=== PATIENT | male | born 1935 | race Caucasian/White ===

== ENCOUNTER 2019-08-08 12:19 | Emergency (ER) | payer MEDICARE, SELFPAY ==
--- NOTE | ~2019-08-08 | XR_ITS ---
EXAMINATION: XR chest 2V DATE: 08/08/2019 12:40 INDICATION: Nonproductive cough TECHNIQUE: PA and lateral views of the chest were obtained. COMPARISON: Chest radiograph dated 07/14/2019 FINDINGS: The region of consolidation in the right middle lobe consistent with pneumonia. No significant change in a few peripheral streaky opacities at the right upper and bilateral lower lung zones consistent w ith atelectasis/scarring. Calcified right lower lobe nodule consistent with old granulomatous disease . Very small right pleural effusion. No pneumothorax. The cardiomediastinal silhouette is normal. The re are bridging osteophytes at multiple levels in the spine, consistent with diffuse idiopathic skele laurita hyperostosis (DISH). IMPRESSION: 1. Right middle lobe pneumonia with very small right pleural effusion. Reviewed, dictated and finalized at location A. OSIVE ORDNANCE MANAGER
[2019-08-08 12:31] VITALS: BP 133/59; PULSE 60; RESP 18; TEMP 37.7; O2SAT 93
--- NOTE | 2019-08-08 12:52 | ED.URI ---
HPI - URI/Sore Throat General Chief Complaint: Upper Respiratory Infection Stated Complaint: Cough Time Seen by Provider: 08/08/19 12:45 Source: patient and RN notes reviewed Mode of arrival: ambulatory Limitations: no limitations History of Present Illness HPI Narrative: Patient presents today with a 4-day history of nonproductive cough and slight shortness of breath with runny nose. Denies fever, body aches, sore throat, congestion. He has been using cough drops with some relief. Cough is not keeping him awake at night. Patient has history of COPD. He had pneumonia with sepsis in April. He had a follow-up chest x-ray approximately 3 weeks ago that showed some resolving pneumonia on the right lung. MD elicited complaint: cough Related Data Home Medications Medication Instructions Recorded Confirmed amiodarone 200 mg PO DAILY 04/22/19 08/08/19 atorvastatin 40 mg PO HS 04/22/19 08/08/19 carvedilol 25 mg PO Q12H 04/22/19 08/08/19 clopidogrel [Plavix] 75 mg PO DAILY 04/22/19 08/08/19 ergocalciferol (vitamin D2) 50,000 unit PO MONTHLY 04/22/19 08/08/19 famotidine 20 mg PO BID 04/22/19 08/08/19 gabapentin 600 mg PO BID 04/22/19 08/08/19 warfarin [Coumadin] 3 mg PO DAILY 04/22/19 08/08/19 bumetanide 2 mg tablet 2 mg PO DAILY 05/26/19 08/08/19 Allergies Allergy/AdvReac Type Severity Reaction Status Date / Time prednisolone Allergy Severe Loss of Verified 08/08/19 12:33 Consciousness prednisone Allergy Severe Loss of Verified 08/08/19 12:33 Consciousness adhesive tape Allergy Mild Rash Verified 08/08/19 12:33 atorvastatin Allergy Unknown Muscle Pain Verified 08/08/19 12:33 flecainide Allergy Unknown FACIAL Verified 05/31/19 15:00 NUMBNESS Review of Systems Review of Systems: Narrative: CONSTITUTIONAL: Denies body aches, fever, chills, or sweats. EYES: Denies visual changes, redness, or discharge. ENT: Denies congestion, sore throat, or otalgia.+ Rhinorrhea CARDIOVASCULAR: Denies chest pain, palpitations, or edema. RESPIRATORY: + Cough, slight shortness of breath GASTROINTESTINAL: Denies abdominal pain, nausea, vomiting, or diarrhea. GENITOURINARY: Denies dysuria or hematuria. SKIN: Denies rash, itching, or wounds. MUSCULOSKELETAL: Denies back pain, joint pain, or myalgia. NEUROLOGIC: Denies headache, numbness, tingling, or weakness. PSYCH: Denies depression or anxiety. [facility] Social History Social History Social History: pt stated stop smoking 30 years ago Smoking status: Former smoker Smoking end date: 06/23/97 Alcohol intake: current Comments At time of signature, I have reviewed and agree with nursing past medical, surgical, social and family history unless otherwise noted. Please see nursing chart for further information. There is no relevant family history pertinent to the presenting complaint Exam Narrative: Exam Narrative: GENERAL: Well-appearing, well-nourished, and in no acute distress. HEAD: Normocephalic, atraumatic. EYES: EOMI. No redness or drainage. Conjunctivae normal. ENT: Mucous membranes pink and moist. Nares clear. No rhinorrhea. Throat normal. Uvula midline. Wears hearing aids. NECK: Normal AROM. Supple. No lymphadenopathy. CHEST: No respiratory distress. Diminished in the bilateral upper lobes. Clear throughout. HEART: Regular rate and rhythm. No murmur appreciated. Normal peripheral pulses. EXTREMITIES: Normal range of motion. No edema. SKIN: Warm, dry, no rash. NEURO: No focal deficits. Alert and oriented x3. Gait steady. PSYCH: Normal affect. No signs of depression or anxiety. Course Course Emergency Course: Patient's chest x-ray shows right middle lobe consolidation. He seems comfortable and is in no distress. We will start him on some doxycycline. Instructed patient to follow-up with his PCP in the next 2 to 3 days, and to go the ER immediately with any worsening symptoms. Vital Signs Vital
== END 2019-08-08 13:13 | disposition home or self-care (01) ==
PROVIDERS: Emergency Provider Nurse Practitioner; PCP Internal Medicine
DX: J18.9 Pneumonia, unspecified organism (principal); Z87.891 Personal history of nicotine dependence; J44.9 Chronic obstructive pulmonary disease, unspecified; I25.110 Atherosclerotic heart disease of native coronary artery with unstable angina pectoris; I48.91 Unspecified atrial fibrillation; E78.00 Pure hypercholesterolemia, unspecified; I50.9 Heart failure, unspecified; I25.2 Old myocardial infarction; I73.9 Peripheral vascular disease, unspecified; I13.0 Hypertensive heart and chronic kidney disease with heart failure and stage 1 through stage 4 chronic kidney disease, or unspecified chronic kidney disease; E11.22 Type 2 diabetes mellitus with diabetic chronic kidney disease; N18.3 Chronic kidney disease, stage 3 (moderate); E11.42 Type 2 diabetes mellitus with diabetic polyneuropathy; M19.90 Unspecified osteoarthritis, unspecified site
CPT/HCPCS: 71046; 99213; G0463

== ENCOUNTER 2019-08-18 11:29 | Outpatient (CLI) | payer MEDICARE, SELFPAY ==
--- NOTE | ~2019-08-18 | XR_ITS ---
EXAMINATION: XR chest 2V DATE: 08/18/2019 11:44 INDICATION: Pneumonia, unspecified organism. TECHNIQUE: Frontal and lateral views of the chest were obtained. COMPARISON: Chest 2 views 08/08/2019, 07/14/2019, chest CT 03/30/2018 FINDINGS: There is a mass in right middle lobe. A calcified right lung nodule and calcified right hil ar lymph nodes are consistent with old adenomatous disease. There is mild atelectasis in left lower l lary zone and right upper lung zone. No pleural effusion or pneumothorax. The heart size is normal. IMPRESSION: 1. Mass in right middle lobe with interval improvement, consistent with pneumonia. Follow-up imaging is recommended to confirm resolution and exclude malignancy. Reviewed, dictated and finalized at location A. DINNER IMPRESSION: 1. Mass in right middle lobe with interval improvement, consistent with pneumon ia. Follow-up imaging is recommended to confirm resolution and exclude malignan cy.
== END 2019-08-18 11:30 | disposition home or self-care (01) ==
LOC: ANHIMG 11:31
PROVIDERS: PCP Internal Medicine; Visit Provider Nurse Practitioner
DX: J18.9 Pneumonia, unspecified organism (principal)
CPT/HCPCS: 71046

== ENCOUNTER 2019-08-25 12:03 | Outpatient (CLI) | payer MEDICARE, SELFPAY ==
--- NOTE | ~2019-08-25 | XR_ITS ---
XR chest 2V 08/25/2019 12:19 Indication: Follow-up pneumonia Procedure: PA and lateral views of the chest Comparison: Comparison to multiple prior studies sequentially, with oldest reviewed study dated 08/08 Findings: Persistent mass overlying the right cardiophrenic angle. Recommend follow-up CT chest. Bord chau heart size. Calcified granuloma right lung base. The lungs are hyperinflated which is consiste nt with, but not diagnostic of chronic obstructive pulmonary disease. There is left basilar atelectas is/scarring. Impression: 1: Masslike density overlying the right cardiophrenic angle. Follow-up CT chest with contrast recomme nded. Reviewed, dictated and finalized at location B. ORIZATION REPRESENTATIVE Impression: 1: Masslike density overlying the right cardiophrenic angle. Follow-up CT chest with contrast recommended.
== END 2019-08-25 12:04 | disposition home or self-care (01) ==
LOC: ANHIMG 12:09
PROVIDERS: PCP Internal Medicine; Visit Provider Nurse Practitioner
DX: J18.9 Pneumonia, unspecified organism (principal)
CPT/HCPCS: 71046

== ENCOUNTER 2019-08-31 14:06 | Outpatient (CLI) | payer MEDICARE, SELFPAY ==
--- NOTE | ~2019-08-31 | CT_ITS ---
EXAMINATION: CT chest wo con EXAM DATE: 08/31/2019 14:32 INDICATION: Shortness of breath. TECHNIQUE: Spiral CT of the chest without contrast. Axial, coronal and sagittal images were reviewe d. Coronal maximum intensity pixel images of chest reviewed. The dose-length product (DLP) for this examination was 272.82 mGy-cm. The exposure was tailored according to patient size (auto mA exposur e control), and iterative reconstruction (ASIR) was used as additional dose reduction technique. Comp arison is made to prior examination from 03/30/2018. FINDINGS: There is right middle lobe medial segmental masslike opacity with evidence of volume loss, region measuring 3 cm in diameter. There is central necrosis within this, appearance most consistent with resolving necrotic pneumonia. Correlation was made with chest x-ray dated 08/08/2019, demonstrat ing confluent consolidation in this location which then decreased in size and developed the more foca l masslike opacity on more recent x-ray from 08/25/2019. Similar-appearing right lower lobe opacity lupe ng the major fissure, lateral sulcus has decreased in size compared to CT from 2018, consistent with postinfectious residua. There is moderate emphysema. There are some scattered left lung predominant t ree-in-bud pattern opacities, chronic or post infectious. There are no pleural or pericardial effusions. Tracheobronchial tree is patent. There is no media stinal, hilar or axillary lymphadenopathy. There is no pneumothorax. Heart normal in size. The i nterventricular septum is perceptible, suggesting patient is anemic. There is moderate coronary jeromy rial calcification, arterial sclerosis. Multiple liver, renal cysts and hemorrhagic cysts. There is small right nephrolithiasis. No osteoblastic or osteolytic lesions identified. Patient has diffuse i diopathic skeletal hyperostosis (DISH). Mildly enlarged thyroid with small nodules. IMPRESSION: Development of necrotic right middle lobe 3 cm mass, more likely resolving necrotic pneum onia than malignancy. Consider 1-2 month follow-up low-dose chest CT, pulmonary consult, PET/CT, or b iopsy as reasonable options. Reviewed, dictated and finalized at location A. IMPRESSION: Development of necrotic right middle lobe 3 cm mass, more likely re solving necrotic pneumonia than malignancy. Consider 1-2 month follow-up low-do se chest CT, pulmonary consult, PET/CT, or biopsy as reasonable options.
== END 2019-08-31 14:07 | disposition home or self-care (01) ==
LOC: ANHIMG 14:07
PROVIDERS: PCP Internal Medicine; Visit Provider Nurse Practitioner
DX: R06.02 Shortness of breath (principal); R93.89 Abnormal findings on diagnostic imaging of other specified body structures
CPT/HCPCS: 71250

== ENCOUNTER 2019-11-05 14:44 | Outpatient (CLI) | payer MEDICARE, SELFPAY ==
--- NOTE | ~2019-11-05 | CT_ITS ---
EXAMINATION: CT chest wo con DATE: 11/05/2019 15:31 INDICATION: Abnormal findings on diagnostic imaging, recent chest CT demonstrating right middle lobe nodule. TECHNIQUE: Computed tomography (CT) of the chest was performed without intravenous contrast. The dose -length product (DLP) was 325.76 mGy-cm. Automated exposure control and iterative reconstruction tech [employer] were employed. COMPARISON: 08/31/2019, 04/09/2018 FINDINGS: The right middle lobe nodule described on most recent chest CT has decreased in size, likel y resolving infection. There is moderate emphysema. A new airspace opacity is present in the right up per lobe. No pathologically enlarged thoracic lymph nodes are identified. The heart size is normal. T here is calcified atherosclerosis of the aorta and coronary arteries. Calcified pulmonary nodules and calcified mediastinal lymph nodes are consistent with old granulomatous disease. There are bridging osteophytes at multiple levels in the spine, consistent with diffuse idiopathic skeletal hyperostosis (DISH). There is chronic loculated fluid in the minor fissure. Cysts of the visualized liver measure up to four 5 cm. Punctate calcifications in an otherwise normal spleen likely represent healed granu lomatous disease. Cysts of the visualized kidneys measure up to 4.9 cm. A sebaceous cyst is noted in the midline of the upper back. IMPRESSION: 1. Decrease in size of the previously described right middle lobe nodule, likely resolving pneumonia. Recommend CT in six months to exclude underlying malignancy. Reviewed, dictated and finalized at location A. IMPRESSION: 1. Decrease in size of the previously described right middle lobe nodule, likel y resolving pneumonia. Recommend CT in six months to exclude underlying maligna ncy.
== END 2019-11-05 14:45 | disposition home or self-care (01) ==
LOC: ANHIMG 14:46
PROVIDERS: PCP Internal Medicine; Visit Provider Nurse Practitioner
DX: R93.89 Abnormal findings on diagnostic imaging of other specified body structures (principal)
CPT/HCPCS: 71250

== ENCOUNTER 2019-12-08 10:42 | Outpatient (CLI) | payer MEDICARE, SELFPAY ==
--- NOTE | ~2019-12-08 | XR_ITS ---
EXAMINATION: XR chest 2V DATE: 12/08/2019 12:06 INDICATION: Chronic combined systolic and diastolic heart failure TECHNIQUE: Frontal and lateral views of the chest are obtained COMPARISON: 08/25/2019 FINDINGS: A nodule of the right middle lobe continues to decrease in size. There is a calcified granu jak of the right lower lobe. Loculated fluid of the minor fissure also continues to decrease in size . There is no pneumothorax. The cardiomediastinal silhouette is normal. There are bridging osteophyte s at multiple levels in the spine, consistent with diffuse idiopathic skeletal hyperostosis (DISH). IMPRESSION: 1. Continued decrease in right middle lobe opacity, likely resolving pneumonia. Reviewed, dictated and finalized at location A.
[2019-12-08 11:45] LABS: Hematocrit 38.8 % (42.0-52.0); Hemoglobin 11.9 g/dL (14.0-18.0); Mean Corpuscular HGB Conc 30.7 g/dl (32-36); Mean Corpuscular Hemoglobin 30.7 pg (26-34); Mean Corpuscular Volume 100.3 fl (80-100); Mean Platelet Volume 10.9 fl (7.4-10.4); Platelet Count Result 173 k/mm3 (150-375); Red Blood Count 3.87 M/mm3 (4.6-6.20); Red Cell Distribution Width 14.6 % (11.5-14.5); White Blood Count 6.7 K/mm3 (4.5-10.0)
[2019-12-08 12:02] LABS: Alanine Aminotransferase 16 U/L (4-50); Alkaline Phosphatase 135 U/L (38-126); Aspartate Amino Transferase 25 U/L (17-59); Bilirubin,Total 0.4 mg/dL (0.2-1.3); Blood Urea Nitrogen 38 mg/dL (9-20); Calcium 9.3 mg/dL (8.4-10.2); Carbon Dioxide 25 mmol/L (22-30); Chloride 109 mmol/L (98-107); Cholesterol 126 mg/dL (0-200); Estimated Glomerular Filt Rate 23; Glucose 102 mg/dL (75-110); HDL Direct 33 mg/dL; Potassium 5.1 mmol/L (3.4-5.0); Sodium 142 mmol/L (137-145); Triglycerides 306 mg/dL (<150)
[2019-12-08 12:12] LABS: LDL Cholesterol Direct 44 mg/dL
[2019-12-08 12:32] LABS: Thyroid Stimulating Hormone 0.659 uIU/mL (0.465-4.680)
== END 2019-12-08 10:43 | disposition home or self-care (01) ==
PROVIDERS: PCP Internal Medicine; Visit Provider Internal Medicine Cardiovascular Disease
DX: Z51.81 Encounter for therapeutic drug level monitoring (principal); Z79.899 Other long term (current) drug therapy; I25.10 Atherosclerotic heart disease of native coronary artery without angina pectoris; Z79.01 Long term (current) use of anticoagulants; R91.8 Other nonspecific abnormal finding of lung field
CPT/HCPCS: 36415; 71046; 80053; 80061; 84443; 85027

== ENCOUNTER 2020-04-24 08:12 | Outpatient (CLI) | payer MEDICARE, SELFPAY ==
--- NOTE | ~2020-04-24 | CT_ITS ---
EXAMINATION: CT chest wo con EXAM DATE: 04/24/2020 08:33 INDICATION: R93.89 Abnormal findings on diagnostic imaging. TECHNIQUE: Spiral CT of the chest without contrast. Axial, coronal and sagittal images were reviewe d. Coronal maximum intensity pixel images of chest reviewed. The dose-length product (DLP) for this examination was 373.27 mGy-cm. The exposure was tailored according to patient size (auto mA exposur e control), and iterative reconstruction (ASIR) was used as additional dose reduction technique. Comp arison is made to prior examination from 11/05/2019. FINDINGS: There is moderate emphysema. Aortic valve density, could be calcified aortic valve given t hat there are now sternotomy wires. Scattered bibasilar linear atelectasis. In the right lower lobe a nterior segment there is hypodense region within this measuring about 2.4 by 1.7 cm (previously in si milar dimensions 2.4 x 1.4, could be some necrotic tissue if patient had recent pneumonia. Necrotic m alignancy not excludable but believed to be less likely. Region does appear essentially unchanged com pared to prior study. Interval development of small bilateral pleural effusions, right greater than left. Tracheobronchial tree is patent. There is no mediastinal, hilar or axillary lymphadenopathy. There is no pneumoth orax. Heart normal in size. There are dense coronary arteries, could be severe coronary arterial sclerosis and/or coronary artery stent(s), which are difficult to distinguish due to cardiac motion o n this non-gated exam. Correlate with cardiac history and consider cardiology consult if not recently evaluated. Right renal lesions which are homogeneous, partially exophytic and probably hemorrhagic and nonhemorr hagic cysts. Left liver lobe fluid density lesion measuring 4 cm, likely cyst. Moderate sized bridgi ng mid thoracic right anterolateral endplate osteophytes. There are no osteoblastic or osteolytic les ions identified. IMPRESSION: 1. Slight increase in size of focal nodular region within subsegmental atelectasis, Central portion a ppears necrotic. Most likely postinfectious but malignancy not entirely excludable. Consider addition al 3-6 month follow-up CT. 2. Other regions of basilar subsegmental atelectasis. 3. Interval development of small pleural effusions. 4. Moderate emphysema. Reviewed, dictated and finalized at location B. K MAKER IMPRESSION: 1. Slight increase in size of focal nodular region within subsegmental atelecta sis, Central portion appears necrotic. Most likely postinfectious but malignanc y not entirely excludable. Consider additional 3-6 month follow-up CT. 2. Other regions of basilar subsegmental atelectasis. 3. Interval development of small pleural effusions. 4. Moderate emphysema.
== END 2020-04-24 08:13 | disposition home or self-care (01) ==
LOC: ANHIMG 08:20
PROVIDERS: PCP Internal Medicine; Visit Provider Nurse Practitioner
DX: R93.89 Abnormal findings on diagnostic imaging of other specified body structures (principal); J43.9 Emphysema, unspecified; J90 Pleural effusion, not elsewhere classified
CPT/HCPCS: 71250

== ENCOUNTER 2020-05-12 22:09 | Emergency (ER) | payer MEDICARE, SELFPAY ==
--- NOTE | ~2020-05-12 | XR_ITS ---
EXAMINATION: XR chest 1V DATE: 05/12/2020 23:20 INDICATION: One day of cough TECHNIQUE: frontal view of the chest was obtained. COMPARISON: 12/08/[address] dated 04/24/2020 FINDINGS: Hyperexpansion of lungs with increased lucency and architectural distortion in the left upper lung zo ne consistent with emphysema better appreciated on prior CT. Opacities in the bilateral lower lung zo melissa. Blunting at the right costophrenic angle consistent with small right pleural effusion. Calcified nodules at the right lung base consistent with old granulomatous disease. No pneumothorax or left-si ded pleural effusion. Heart size is normal. There is a new aortic valve repair with surgical clips in the right infraclavicular region which may represent a site of associated vascular access related to be valve repair. Atherosclerotic aorta. IMPRESSION: 1. Opacities in the bilateral lower lung zones consistent with small right pleural effusion and bibas ilar atelectasis and/or pneumonia. 2. Emphysema. 3. Postoperative changes of recent aortic valve repair likely via right subclavian artery intravascul ar approach. Reviewed, dictated and finalized at location H. MANAGER IMPRESSION: 1. Opacities in the bilateral lower lung zones consistent with small right pleu ral effusion and bibasilar atelectasis and/or pneumonia. 2. Emphysema. 3. Postoperative changes of recent aortic valve repair likely via right subclav ryley artery intravascular approach.
--- NOTE | ~2020-05-12 | CT_ITS ---
EXAMINATION: CT soft tissue neck wo con DATE: 05/12/2020 23:18 INDICATION: Left neck pain and swelling TECHNIQUE: Computed tomography (CT) of the neck was performed without intravenous contrast. Automated exposure control and iterative reconstruction technique were employed. The dose-length product was 6 04.88 mGy-cm. COMPARISON: None FINDINGS: There is prominent asymmetric swelling of the left parotid gland with surrounding inflammatory strand ing which extends anteriorly and inferiorly into the left face and neck consistent with parotitis. Th ere is a 2 mm sialolith along the superficial margin of the inferior left parotid gland. There are co uple masses within the left parotid gland which measure between fluid and soft tissue density. The la rger more cephalad measures 3.7 x 2.8 x 3.9 cm and the smaller and more caudal measures 2.7 x 2.2 x 2 .3 cm. It is unclear whether these are solid or complex cystic with differential including neoplasm e ither benign or malignant, the largest lymph node either metastatic or lymphoma, abscess or hematoma. Right parotid gland and bilateral submandibular glands are normal. Goiter with nodular enlargement of the posterior right thyroid lobe which extends into superior mediastinum. No other pathologically en larged cervical lymphadenopathy. There is however mild mediastinal lymphadenopathy which could be eit her reactive or metastatic. Extensive atherosclerotic calcifications including at the aorta, great ve ssels and bilateral carotid bulbs. Small right subpectoral seroma/hematoma with a few additional surg ical clips likely related to vascular access for a recent aortic valve repair which can be seen on th e subsequent chest radiograph. Moderate emphysema in the visualized upper lungs. Small posterior laye ring right pleural effusion. Atherosclerotic thoracic aorta. Mild cervical and thoracic lymphadenopat hy. Changes of bilateral intraocular lens replacement. Mucosal thickening in the bilateral maxillary and ethmoid sinuses. Bilateral mastoid air cells and middle ear cavities are clear. Mild to moderate age-appropriate diffuse volume loss in the visualized brain. IMPRESSION: 1. Couple round lesions measuring 3.9 cm and 2.7 cm in maximal diameter in the left parotid measuring between simple fluid and soft tissue density. differential includes neoplasm either benign or malign ant, the largest lymph node either metastatic or lymphoma, abscess or hematoma. Correlate clinically for signs of infection and for the chronicity of the parotid enlargement. 2. Additional enlargement and edematous appearance of the surrounding left parotid gland itself surro unded by inflammatory stranding consistent with parotitis. 2 mm sialolith in the left parotid gland a lthough this is located peripheral to the intraparotid lesions and unclear whether this is related to the parotitis or incidental. 3. Small likely hematoma/seroma in the right subpectoral region likely related to vascular access for a recent aortic valve repair. 4. Moderate emphysema with small posterior layering right pleural effusion. 5. Mild mediastinal lymphadenopathy most likely reactive although differential includes metastatic di sease. 6. Goiter. Reviewed, dictated and finalized at location H. BOSS IMPRESSION: 1. Couple round lesions measuring 3.9 cm and 2.7 cm in maximal diameter in the left parotid measuring between simple fluid and soft tissue density. differenti al includes neoplasm either benign or malignant, the largest lymph node either metastatic or lymphoma, abscess or hematoma. Correlate clinically for signs of infection and for the chronicity of the parotid enlargement. 2. Additional enlargement and edematous appearance of the surrounding left paro tid gland itself surrounded by
[2020-05-12 21:47] VITALS: BP 137/56; PULSE 70; RESP 18; TEMP 37.2; O2SAT 94
--- NOTE | 2020-05-12 22:17 | ECG_ITS ---
Measurements Intervals [place] Rate: 68 P: 52 KS: 180 QRS: -46 QRSD: 163 T: 106 QT: 485 QTc: 519 Interpretive Statements SINUS RHYTHM LEFT AXIS DEVIATION LEFT BUNDLE BRANCH BLOCK BASELINE WANDER- I ABNORMAL ECG Electronically Signed On 05-13-2020 10:00:06 PLANT OPERATOR HELPER by Petar Dunaway D.O.
[2020-05-12 22:37] LABS: Basophils Percent Auto 0.2 % (0.2-1.2); Eosinophils Absolute Auto 0.1 K/mm3 (0-0.3); Eosinophils Percent Auto 0.6 % (0-4.4); Hematocrit 31.2 % (42.0-52.0); Hemoglobin 9.5 g/dL (14.0-18.0); Immature Granulocyte Absolute 0.16 K/mm3 (0.00-0.031); Immature Granulocyte Percent A 1.3 % (0-0.5); Lymphocytes Absolute Auto 0.76 K/mm3 (0.9-3.2); Lymphocytes Percent Auto 6.3 % (18.3-44.2); Mean Corpuscular HGB Conc 30.4 g/dl (32-36); Mean Corpuscular Hemoglobin 30.7 pg (26-34); Mean Platelet Volume 10.7 fl (7.4-10.4); Monocytes Absolute Auto 1.5 K/mm3 (0.1-0.6); Monocytes Percent Auto 12.3 % (2.6-8.5); Neutrophils Absolute Auto 9.6 K/mm3 (1.3-6.7); Neutrophils Percent Auto 79.3 % (45.5-73.1); Platelet Count Result 172 k/mm3 (150-375); Red Blood Count 3.09 M/mm3 (4.6-6.20); Red Cell Distribution Width 14.6 % (11.5-14.5); White Blood Count 12.1 K/mm3 (4.5-10.0)
--- NOTE | 2020-05-12 22:39 | ED.GENADULT ---
HPI - General Adult General Chief complaint: Unspecified Stated complaint: weak and shakey; 100.6 temp Source: RN notes reviewed History of Present Illness HPI narrative: Patient presents emergency department from home via EMS for weakness. Patient states that he had valve replacement surgery at [facility] by Dr. Salas last week. He was discharged from the hospital on Friday of this week and it had a central line in his left EJ. He states he began have swelling in the left side of the neck the next day on Friday the the progressively worsened. States he has noted swelling and redness to the left side of the neck he was seen by his PCP yesterday and was started on cefdinir but states the swelling has worsened and noted this evening he was weak and shaky. He states he has not had a fever he denies any difficulty swallowing sore throat shortness of breath or any other symptoms. He is currently on Coumadin which she has been taking it was accessed to the right subclavian . For the valve replacement. Move the legs states he is on 2 L nasal cannula at night Related Data Home Medications Medication Instructions Recorded Confirmed atorvastatin 40 mg PO HS 04/22/19 05/11/20 clopidogrel [Plavix] 75 mg PO DAILY 04/22/19 05/11/20 warfarin [Coumadin] 3 mg PO DAILY 04/22/19 05/11/20 bumetanide 2 mg tablet 2 mg PO DAILY 05/26/19 05/11/20 gabapentin 600 mg tablet 600 mg PO DAILY tablet 08/13/19 05/11/20 carvedilol 12.5 mg tablet 12.5 mg PO Q12H 05/12/20 hydralazine 100 mg tablet 100 mg PO TID tablet 05/12/20 nitroglycerin 0.4 mg sublingual 0.4 mg SUBLINGUAL Q5M PRN 05/12/20 tablet Allergies Allergy/AdvReac Type Severity Reaction Status Date / Time prednisolone Allergy Severe Loss of Verified 05/11/20 14:28 Consciousness prednisone Allergy Severe Loss of Verified 05/11/20 14:28 Consciousness adhesive tape Allergy Mild Rash Verified 05/11/20 14:28 atorvastatin Allergy Unknown Muscle Pain Verified 05/11/20 14:28 flecainide Allergy Unknown FEET Verified 05/11/20 14:28 NUMBNESS Review of Systems Review of Systems: Narrative: Gen.: Denies fevers or chills Eyes: Denies eye pain or visual change ENT: See HPI Respiratory: Denies shortness of breath or cough CV: Denies chest pain or palpitations GI: Denies abdominal pain nausea, emesis or diarrhea Musculoskeletal: Denies back pain or muscle pain Neuro: Denies numbness, tingling, reports weakness Skin: Denies rash Except as documented, all other systems reviewed and negative [facility] Past Medical History Medical History (Updated 05/13/20 @ 01:21 by Luis Chen DO) AAA (abdominal aortic aneurysm) without rupture Anemia due to stage 3 chronic kidney disease Aortic valve stenosis, acquired Atherosclerosis of [place] coronary artery of [place] heart Chronic atrial fibrillation, unspecified Chronic heart failure with preserved ejection fraction (HFpEF) CKD (chronic kidney disease) Hx of ulcerative colitis Hypertension, essential Peripheral vascular disease of lower extremity Type 2 diabetes mellitus with hyperglycemia, without long-term current use of insulin Family History Family History Sibling Patient's sister is in good health Father Family history of malignant neoplasm Patient's father is , Onset Age: 60 Family history of malignant neoplasm of bone Mother Family history of coronary artery disease Family history of malignant neoplasm Other Family history of arthritis Social History Social History Social History: pt stated stop smoking 30 years ago Smoking status: Former smoker Smoking end date: 06/23/97 Alcohol intake: current Exam Narrative: Exam Narrative: APPEARANCE: No acute distress, nontoxic, resting in bed EYES: EOMI HEENT: Normocephalic, atraumatic, TMs clear bilaterally nares patent
[2020-05-12 22:48] LABS: INR 1.8; Prothrombin Time 21.6 Seconds (11.1-14.7)
[2020-05-12 22:49] LABS: Alanine Aminotransferase 23 U/L (4-50); Albumin Level 3.2 g/dL (3.5-5.1); Alkaline Phosphatase 126 U/L (38-126); Anion Gap 8 mmol/L (8-16); Aspartate Amino Transferase 46 U/L (17-59); Bilirubin,Total 0.4 mg/dL (0.2-1.3); Blood Urea Nitrogen 45 mg/dL (9-20); Calcium 8.3 mg/dL (8.4-10.2); Carbon Dioxide 25 mmol/L (22-30); Chloride 107 mmol/L (98-107); Estimated CRCL calculation 18 ml/min; Estimated Glomerular Filt Rate 23; Glucose 120 mg/dL (75-110); Partial Thromboplastin Time 46.4 SECONDS (22.3-36.8); Potassium 4.6 mmol/L (3.4-5.0); Sodium 140 mmol/L (137-145)
[2020-05-12 22:55] LABS: Add Urine Microscopic? YES; Appearance Urine Clear (Clear); Bilirubin Urine Negative (Negative); Blood Urine Negative (Negative); Color Urine Yellow (Yellow); Glucose Urine UA Negative (Negative); Ketones Urine Negative (Negative); Leukocyte Esterase Ur Negative LEU/UL (Negative); Mucus Urine Rare /lpf; Nitrate Urine Negative (Negative); Protein Urine 1+ mg/dL (Negative); RBC Urine 0-2 /hpf (0-2); Specific Grav Ur 1.016 (1.001-1.035); Urobilinogen Urine Negative mg/dL (<2.0); WBC Urine 0-3 /hpf
[2020-05-12 23:09] LABS: Lactic Acid Reflex 0.8 mmol/L (0.7-2.1)
[2020-05-12 23:32] VITALS: BP 151/58; PULSE 67; RESP 16; O2SAT 94
--- NOTE | 2020-05-13 00:59 | PC.NURSE ---
called [facility] to request transport to [facility]. ETA [id number] [facility], [facility] and [facility] services not available for transfers.
[2020-05-13 01:49] VITALS: BP 138/58; PULSE 78; RESP 16; O2SAT 98
--- NOTE | 2020-05-13 02:37 | PC.NURSE ---
called [facility] to get update for ETA. ETA [id number]
[2020-05-13 03:31] VITALS: BP 156/47; PULSE 63; RESP 16; O2SAT 97
== END 2020-05-13 03:46 | disposition short-term general hospital (02) ==
PROVIDERS: Emergency Provider Emergency Medicine; PCP Internal Medicine
DX: R53.1 Weakness (principal); K11.3 Abscess of salivary gland; K11.21 Acute sialoadenitis; E11.22 Type 2 diabetes mellitus with diabetic chronic kidney disease; I13.0 Hypertensive heart and chronic kidney disease with heart failure and stage 1 through stage 4 chronic kidney disease, or unspecified chronic kidney disease; N18.30 Chronic kidney disease, stage 3 unspecified; D63.1 Anemia in chronic kidney disease; Z95.2 Presence of prosthetic heart valve; I48.20 Chronic atrial fibrillation, unspecified; E11.42 Type 2 diabetes mellitus with diabetic polyneuropathy; Z87.891 Personal history of nicotine dependence; Z79.01 Long term (current) use of anticoagulants; Z79.02 Long term (current) use of antithrombotics/antiplatelets; J43.9 Emphysema, unspecified; E04.9 Nontoxic goiter, unspecified; R91.8 Other nonspecific abnormal finding of lung field; I44.7 Left bundle-branch block, unspecified
CPT/HCPCS: 36415; 70490; 71045; 80053; 81001; 83605; 85025; 85610; 85730; 87040; 87106; 93005; 99285

== ENCOUNTER 2020-06-02 10:23 | Outpatient (CLI) | payer MEDICARE, SELFPAY ==
[2020-06-02 10:48] LABS: Hematocrit 29.3 % (42.0-52.0); Hemoglobin 8.7 g/dL (14.0-18.0); Mean Corpuscular HGB Conc 29.7 g/dl (32-36); Mean Corpuscular Hemoglobin 29.9 pg (26-34); Mean Corpuscular Volume 100.7 fl (80-100); Mean Platelet Volume 10.6 fl (7.4-10.4); Platelet Count Result 149 k/mm3 (150-375); Red Blood Count 2.91 M/mm3 (4.6-6.20); Red Cell Distribution Width 15.2 % (11.5-14.5); White Blood Count 6.2 K/mm3 (4.5-10.0)
[2020-06-02 11:05] LABS: Alanine Aminotransferase 29 U/L (4-50); Alkaline Phosphatase 136 U/L (38-126); Anion Gap 7 mmol/L (8-16); Aspartate Amino Transferase 31 U/L (17-59); Bilirubin,Total 0.3 mg/dL (0.2-1.3); Blood Urea Nitrogen 38 mg/dL (9-20); Calcium 8.4 mg/dL (8.4-10.2); Carbon Dioxide 21 mmol/L (22-30); Chloride 111 mmol/L (98-107); Cholesterol 132 mg/dL (0-200); Estimated Glomerular Filt Rate 25; Glucose 287 mg/dL (75-110); HDL Direct 41 mg/dL; Potassium 4.5 mmol/L (3.4-5.0); Sodium 139 mmol/L (137-145); Triglycerides 214 mg/dL (<150)
[2020-06-02 11:16] LABS: LDL Cholesterol Direct 46 mg/dL
[2020-06-02 11:34] LABS: Hemoglobin A1C 6.4 % (<5.7)
== END 2020-06-02 10:24 | disposition home or self-care (01) ==
PROVIDERS: PCP Internal Medicine; Visit Provider Nurse Practitioner
DX: E11.22 Type 2 diabetes mellitus with diabetic chronic kidney disease (principal); N18.4 Chronic kidney disease, stage 4 (severe); D63.1 Anemia in chronic kidney disease; E11.42 Type 2 diabetes mellitus with diabetic polyneuropathy; E78.5 Hyperlipidemia, unspecified
CPT/HCPCS: 36415; 80053; 80061; 83036; 85027

== ENCOUNTER 2020-07-04 11:43 | Outpatient (CLI) | payer MEDICARE, SELFPAY ==
--- NOTE | ~2020-07-04 | XR_ITS ---
EXAMINATION: XR chest 2V DATE: 07/04/2020 12:39 INDICATION: Dyspnea on exertion. TECHNIQUE: Frontal and lateral views of the chest were obtained. COMPARISON: Chest single view 05/12/2020, chest CT 04/24/2020 FINDINGS: There are lucencies in the lungs, consistent with emphysema. There are small pleural effusi ons. There are airspace opacities at the lung bases, likely atelectasis. A calcified right lung nodul e is consistent with old granulomatous disease. No pneumothorax. Cardiomegaly is noted. There are devin nges of aortic valve replacement. Surgical clips overlie the right supraclavicular region. IMPRESSION: 1. Small pleural effusions. 2. Airspace opacities at the lung bases, likely atelectasis. 3. Emphysema. 4. Cardiomegaly. Reviewed, dictated and finalized at location A. GER LINUX
--- NOTE | ~2020-07-04 | CT_ITS ---
EXAMINATION: CT soft tissue neck wo con DATE: 07/04/2020 12:35 INDICATION: Neck pain and swelling. TECHNIQUE: Computed tomography (CT) of the neck was performed without intravenous contrast. Automated exposure control and iterative reconstruction technique were employed. The dose-length product was 4 97.51 mGy-cm. COMPARISON: Neck CT 05/12/2020 FINDINGS: The visualized portions of the lung apices demonstrate emphysema and bilateral pleural effu sions. There is a 6.4 x 3.2 x 3.5 cm mass centered in left superficial parotid gland that extends int o the deep gland. There is a sialolith in left parotid gland. There are no pathologically enlarged ly mph nodes. There are nodules in the thyroid measuring up to 10 mm, likely not clinically significant. There is mucosal thickening in the paranasal sinuses. There is multifocal dental disease. There are surgical clips in right supraclavicular region with overlying fat stranding, consistent with inflamma tion versus scarring. IMPRESSION: 1. 6.4 cm left parotid mass, stable in size from 05/12/20. Given the history of line placement in lef t neck in April, this finding may be a hematoma or abscess. The differential diagnosis also includ es benign mixed tumor, Warthin tumor, and less likely primary malignancy or antonio metastatic disease. 2. Bilateral pleural effusions, at least small. 3. Moderate emphysema. Reviewed, dictated and finalized at location A. MOTIVE SALES EXECUTIVE IMPRESSION: 1. 6.4 cm left parotid mass, stable in size from 05/12/20. Given the history of line placement in left neck in April, this finding may be a hematoma or abs cess. The differential diagnosis also includes benign mixed tumor, Warthin tumo r, and less likely primary malignancy or antonio metastatic disease. 2. Bilateral pleural effusions, at least small. 3. Moderate emphysema.
[2020-07-04 12:23] LABS: Estimated Glomerular Filt Rate 20
== END 2020-07-04 11:44 | disposition home or self-care (01) ==
PROVIDERS: PCP Internal Medicine
DX: K11.9 Disease of salivary gland, unspecified (principal); K11.5 Sialolithiasis; J90 Pleural effusion, not elsewhere classified; J43.9 Emphysema, unspecified; I51.7 Cardiomegaly; R91.8 Other nonspecific abnormal finding of lung field
CPT/HCPCS: 70490; 71046

== ENCOUNTER 2020-07-05 11:30 | Outpatient (CLI) | payer MEDICARE, SELFPAY ==
[2020-07-05 12:52] LABS: Anion Gap 4 mmol/L (8-16); Blood Urea Nitrogen 39 mg/dL (9-20); Calcium 8.5 mg/dL (8.4-10.2); Carbon Dioxide 29 mmol/L (22-30); Chloride 109 mmol/L (98-107); Estimated Glomerular Filt Rate 23; Glucose 148 mg/dL (75-110); Potassium 3.9 mmol/L (3.4-5.0); Sodium 142 mmol/L (137-145)
[2020-07-05 13:00] LABS: NT Pro B Type Natriuretic Pept 587 PG/ML (5-100)
== END 2020-07-05 11:31 | disposition home or self-care (01) ==
LOC: ANHLAB 11:32
PROVIDERS: PCP Internal Medicine; Visit Provider Nurse Practitioner Adult Health
DX: I50.43 Acute on chronic combined systolic (congestive) and diastolic (congestive) heart failure (principal)
CPT/HCPCS: 36415; 80048; 83880

== ENCOUNTER 2020-07-13 14:14 | Outpatient (CLI) | payer MEDICARE, SELFPAY ==
[2020-07-13 15:12] LABS: Anion Gap 6 mmol/L (8-16); Blood Urea Nitrogen 39 mg/dL (9-20); Calcium 8.1 mg/dL (8.4-10.2); Carbon Dioxide 24 mmol/L (22-30); Chloride 111 mmol/L (98-107); Estimated Glomerular Filt Rate 21; Glucose 140 mg/dL (75-110); Potassium 3.7 mmol/L (3.4-5.0); Sodium 141 mmol/L (137-145)
== END 2020-07-13 14:15 | disposition home or self-care (01) ==
LOC: ANHLAB 14:18
PROVIDERS: PCP Internal Medicine; Visit Provider Internal Medicine Cardiovascular Disease
DX: I50.9 Heart failure, unspecified (principal)
CPT/HCPCS: 36415; 80048

== ENCOUNTER 2020-07-31 20:24 | Inpatient (IN) | payer MEDICARE, SELFPAY ==
[2020-07-31] VITALS (17 sets, daily range): BP systolic 113–171; BP diastolic 49–96; PULSE 59–74; RESP 10–21; TEMP 36.2; O2SAT 86–95
--- NOTE | ~2020-07-31 | XR_ITS ---
EXAMINATION: XR chest 1V portable DATE: 08/04/2020 05:51 INDICATION: Congestive heart failure. TECHNIQUE: A single frontal view of the chest was obtained. COMPARISON: Chest single view 07/31/2020, chest CT 04/24/2020 FINDINGS: The lungs are hyperexpanded with lucencies and interstitial opacities, consistent with emph ysema. A calcified right lung nodule and calcified right hilar lymph nodes are consistent with old gr anulomatous disease. There are airspace opacities in the mid and lower lung zones with a basilar pred ominance. There are small pleural effusions. No pneumothorax. Cardiomegaly is noted. There are change s of aortic valve replacement. Surgical clips overlie right upper chest. IMPRESSION: 1. Worsened airspace opacities in the mid and lower lung zones, consistent with atelectasis versus pn eumonia. 2. Stable small pleural effusions. 3. Emphysema. 4. Cardiomegaly. Reviewed, dictated and finalized at location A. E GRINDER IMPRESSION: 1. Worsened airspace opacities in the mid and lower lung zones, consistent with atelectasis versus pneumonia. 2. Stable small pleural effusions. 3. Emphysema. 4. Cardiomegaly.
--- NOTE | ~2020-07-31 | XR_ITS ---
EXAMINATION: XR chest 1V portable DATE: 07/31/2020 21:03 INDICATION: Shortness of breath. Hypoxia. TECHNIQUE: frontal view of the chest was obtained. COMPARISON: Chest radiograph dated 07/04/[address] dated 04/24/2020 FINDINGS: Opacities in the bilateral lower lung zones with blunting at the costophrenic angles consistent with small bilateral pleural effusions and associated atelectasis and/or pneumonia. There also mildly incr eased interstitial opacities in the mid lung zones consistent with mild pulmonary edema. Mild cardiom egaly with pulmonary vascular congestion. Increased lucency at the upper lung zones with some archite ctural distortion consistent with emphysema better appreciated on prior CT. No pneumothorax. Calcifie d nodule at the right lung base consistent with old granulomatous disease. Postoperative change of pr ior aortic valve repair. Several surgical clips projecting over the right infraclavicular region. IMPRESSION: 1. Congestive heart failure with cardiomegaly, mild pulmonary edema and small bilateral pleural effus ions. 2. Opacities in the lower lung zones most likely atelectasis although differential includes pneumonia . 3. Emphysema. Reviewed, dictated and finalized at location A. S LEAD IMPRESSION: 1. Congestive heart failure with cardiomegaly, mild pulmonary edema and small b ilateral pleural effusions. 2. Opacities in the lower lung zones most likely atelectasis although different ial includes pneumonia. 3. Emphysema.
--- NOTE | 2020-07-31 20:31 | ECG_ITS ---
Measurements Intervals [place] Rate: 64 P: 41 [place]: 170 QRS: -18 QRSD: 162 T: 128 QT: 466 QTc: 483 Interpretive Statements SINUS RHYTHM LEFT BUNDLE BRANCH BLOCK BASELINE ARTIFACT- I, II, III, AVR, AVL, AVF, V1 ABNORMAL ECG Electronically Signed On 08-01-2020 6:57:43 [employer] LEAD[employer] by Petar Dunaway D.O.
[2020-07-31 20:46] LABS: Alveolar/Arterial O2 Gradient 247.4 mmHg; Base Excess ABG -1.1 mEq/l (+/-2.0); Carboxyhemoglobin 0.7 % THb (0-2.0); Fractional Inspired Oxygen 50 %; HCO3 ABG 23.5 mEq/l (22.0-26.0); Methemoglobin ABG 0.5 %THb (0-1.5); Oxygen Content ABG 14.8 %vol (16.0-22.0); Oxygen Saturation ABG 92.9 % (95.0-100.0); Oxyhemoglobin 90.8 % THb (90.0-100.0); PCO2 ABG 38.9 mmHg (35.0-45.0); PO2 ABG 65.3 mmHg (80.0-100.0); PO2 FiO2 Ratio Arterial Blood 1.31 %; Site Drawn RIGHT RADIAL; Total Hemoglobin 11.6 g/dL (12.0-18.0); pH ABG 7.399 (7.350-7.450)
[2020-07-31 20:47] LABS: CPAP 10 cmH2O; Device CPAP; Modified Allen's Test Pass
[2020-07-31] MEDS: ALBUTEROL SULFATE (*SP) AEROSOL 1 PUFF 2 PUFF INHALATION (21:02)
[2020-07-31 21:14] LABS: Basophils Percent Auto 0.4 % (0.2-1.2); Eosinophils Absolute Auto 0.2 K/mm3 (0-0.3); Eosinophils Percent Auto 1.9 % (0-4.4); Hematocrit 35.5 % (42.0-52.0); Hemoglobin 10.7 g/dL (14.0-18.0); Immature Granulocyte Absolute 0.07 K/mm3 (0.00-0.031); Immature Granulocyte Percent A 0.9 % (0-0.5); Lymphocytes Absolute Auto 0.59 K/mm3 (0.9-3.2); Lymphocytes Percent Auto 7.3 % (18.3-44.2); Mean Corpuscular HGB Conc 30.1 g/dl (32-36); Mean Corpuscular Hemoglobin 28.2 pg (26-34); Mean Corpuscular Volume 93.7 fl (80-100); Mean Platelet Volume 10.8 fl (7.4-10.4); Monocytes Absolute Auto 0.7 K/mm3 (0.1-0.6); Monocytes Percent Auto 8.9 % (2.6-8.5); Neutrophils Absolute Auto 6.5 K/mm3 (1.3-6.7); Neutrophils Percent Auto 80.6 % (45.5-73.1); Platelet Count Result 204 k/mm3 (150-375); Red Blood Count 3.79 M/mm3 (4.6-6.20); Red Cell Distribution Width 15.9 % (11.5-14.5); White Blood Count 8.1 K/mm3 (4.5-10.0)
--- NOTE | 2020-07-31 21:16 | ED.GENADULT ---
HPI - General Adult General Chief complaint: Shortness of Breath/Dyspnea Stated complaint: SOB/ CP Time Seen by Provider: 07/31/20 20:34 Source: patient History of Present Illness HPI narrative: Patient is a 85 y/o male complaining of severe SOB. He states that has been short of breath for last 2-3 months. He had TAVR at [facility] in 05/12. However, his SOB is worse during the last few days. Exertion aggravates his SOB. He has intermittent burning chest pain. He denies any cough or fever. Related Data Home Medications Medication Instructions Recorded Confirmed atorvastatin 40 mg PO HS 04/22/19 06/06/20 warfarin [Coumadin] 3 mg PO DAILY 04/22/19 07/17/20 bumetanide 2 mg tablet 2 mg PO DAILY 05/26/19 07/17/20 carvedilol 12.5 mg tablet 12.5 mg PO Q12H 05/12/20 07/17/20 hydralazine 100 mg tablet 100 mg PO TID tablet 05/12/20 07/17/20 nitroglycerin 0.4 mg sublingual 0.4 mg SUBLINGUAL Q5M PRN 05/12/20 07/17/20 tablet amlodipine 10 mg tablet 10 mg PO DAILY 06/06/20 07/17/20 budesonide 160 mcg-glycopyr 9 2 inh INHALATION QAM AND QPM 07/17/20 07/17/20 mcg-formot 4.8 mcg/actuation HFA inhaler Allergies Allergy/AdvReac Type Severity Reaction Status Date / Time prednisolone Allergy Severe Loss of Verified 07/31/20 21:12 Consciousness prednisone Allergy Severe Loss of Verified 07/31/20 21:12 Consciousness adhesive tape Allergy Mild Rash Verified 07/31/20 21:12 atorvastatin Allergy Unknown Muscle Pain Verified 07/31/20 21:12 flecainide Allergy Unknown FEET Verified 07/31/20 21:12 NUMBNESS Review of Systems Constitutional: Constitutional: Denies chills, Denies fever(s), Denies headache(s) and Denies weakness Eyes: Eyes: Denies blurry vision ENT: Denies headache(s) and Denies neck pain Cardiovascular: Cardiovascular: Denies chest pain, Reports leg edema and Reports dyspnea Respiratory: Respiratory: Denies cough and Reports dyspnea Gastrointestinal: Gastrointestinal: Denies abdominal pain, Denies diarrhea, Denies nausea and Denies vomiting Genitourinary: Genitourinary: Denies hematuria and Denies dysuria Musculoskeletal: Musculoskeletal: Denies back pain and Denies neck pain Neurologic: Denies headache(s) and Denies weakness [facility] Past Medical History Medical History (Updated 08/01/20 @ 02:18 by Freda Hernandez MD) AAA (abdominal aortic aneurysm) without rupture Anemia due to stage 3 chronic kidney disease Aortic valve stenosis, acquired Atherosclerosis of [place] coronary artery of [place] heart Chronic atrial fibrillation, unspecified Chronic heart failure with preserved ejection fraction (HFpEF) CKD (chronic kidney disease) Hx of ulcerative colitis Hypertension, essential Peripheral vascular disease of lower extremity Type 2 diabetes mellitus with hyperglycemia, without long-term current use of insulin Family History Family History Sibling Patient's sister is in good health Father Family history of malignant neoplasm Patient's father is , Onset Age: 60 Family history of malignant neoplasm of bone Mother Family history of coronary artery disease Family history of malignant neoplasm Other Family history of arthritis Social History Social History Social History: pt stated stop smoking 30 years ago Smoking status: Former smoker Smoking end date: 06/23/97 Alcohol intake: current Gender identity (if verbalized by the patient): Male Exam Const: General: no acute distress and well developed Orientation/consciousness: oriented to person, oriented to place, oriented to time and patient oriented x3 HENMT: Head: normocephalic Ears: external ears normal General nose exam: Normal external nose present Eyes: General: appearance normal, both eyes and all related structures Conjunctivae: conjunctivae normal Neck: Neck: normal visual inspection and full R
[2020-07-31] MEDS: FUROSEMIDE INJ 40 MG/4 ML VIAL IV PUSH (21:20)
[2020-07-31 21:25] LABS: Lactic Acid Reflex 1.1 mmol/L (0.7-2.1)
[2020-07-31 21:26] LABS: Alanine Aminotransferase 20 U/L (4-50); Albumin Level 3.7 g/dL (3.5-5.1); Alkaline Phosphatase 135 U/L (38-126); Anion Gap 8 mmol/L (8-16); Aspartate Amino Transferase 26 U/L (17-59); Bilirubin,Total 0.6 mg/dL (0.2-1.3); Blood Urea Nitrogen 40 mg/dL (9-20); Calcium 8.4 mg/dL (8.4-10.2); Carbon Dioxide 26 mmol/L (22-30); Chloride 110 mmol/L (98-107); Estimated CRCL calculation 20 ml/min; Estimated Glomerular Filt Rate 19; Glucose 199 mg/dL (75-110); Potassium 4.4 mmol/L (3.4-5.0); Sodium 144 mmol/L (137-145)
[2020-07-31 21:38] LABS: NT Pro B Type Natriuretic Pept 884 PG/ML (5-100); Troponin I 0.017 ng/mL (0.000-0.034)
--- NOTE | 2020-07-31 22:51 | PCRCNOTE ---
PT on venturi mask at 50% and 15L spo2 92%.
[2020-08-01] VITALS (24 sets, daily range): BP systolic 115–175; BP diastolic 40–68; PULSE 56–72; RESP 14–22; TEMP 36.2–36.6; O2SAT 89–97; BMI 27.3; BMI 29.9
[2020-08-01 00:50] LABS: Troponin I 0.018 ng/mL (0.000-0.034)
[2020-08-01 01:52] LABS: INR 2.7; Prothrombin Time 29.1 Seconds (11.1-14.7)
[2020-08-01 01:53] LABS: Partial Thromboplastin Time 54.7 SECONDS (22.3-36.8)
--- NOTE | 2020-08-01 03:01 | ADMIMU ---
This patient, Cipriano Garcia, was admitted to IMU status, and placed in IMU Room 211-01 on 07-31-20 at 0230. Patient/family oriented to hospital policies and general routines including ID bracelet, bed and alarms, visiting hours, pain management, procedures, bathroom and other care routines, personal items, smoking policy, room service/diet, and visiting hours. Valuables list has been completed. Information on how to activate the Rapid Response Team has been discussed. Patient/Family are encouraged to report perceived risks to care and to ask questions if they do not understand what they are told or what they should do.
[2020-08-01 03:36] LABS: Troponin I 0.023 ng/mL (0.000-0.034)
[2020-08-01] MEDS: HYDROcodone/acetaminophen (*CRX) 10-325 MG TABLET 1 TAB PO (09:37)
[2020-08-01] MEDS: hydrALAZINE HCL 50 MG TABLET 100 MG PO ×3 (09:37→17:35)
[2020-08-01] MEDS: FAMOTIDINE 20 MG TABLET PO (09:38)
[2020-08-01] MEDS: BUMETANIDE 1 MG TABLET 2 MG PO (09:38)
[2020-08-01] MEDS: ASPIRIN 81 MG CHEWABLE TABLET PO (09:38)
[2020-08-01] MEDS: amLODIPine BESYLATE 5 MG TABLET 10 MG PO (09:39)
[2020-08-01] MEDS: AMIODARONE HCL 200 MG TABLET PO (09:39)
[2020-08-01] MEDS: GABAPENTIN 300 MG CAPSULE 600 MG PO (09:39)
[2020-08-01] MEDS: carvediloL 12.5 MG TABLET PO ×2 (09:40→17:35)
[2020-08-01 09:48] LABS: Anion Gap 7 mmol/L (8-16); Blood Urea Nitrogen 37 mg/dL (9-20); Calcium 8.4 mg/dL (8.4-10.2); Carbon Dioxide 27 mmol/L (22-30); Chloride 112 mmol/L (98-107); Estimated CRCL calculation 20 ml/min; Estimated Glomerular Filt Rate 22; Glucose 89 mg/dL (75-110); Magnesium 2.2 mg/dL (1.6-2.3); Potassium 3.8 mmol/L (3.4-5.0); Sodium 146 mmol/L (137-145)
[2020-08-01 10:01] LABS: Glucose Point of Care 92 (65-105)
[2020-08-01 13:21] LABS: Glucose Point of Care 86 (65-105)
--- NOTE | 2020-08-01 15:52 | PM.CNCAR ---
Assessment and Plan Assessment and plan (1) Acute on chronic combined systolic and diastolic CHF (congestive heart failure): Code(s): I50.43 - Acute on chronic combined systolic (congestive) and diastolic (congestive) heart failure Status: Acute Assessment and Plan: Acute on chronic CHF, EF 41% in April. We have not been able to get Mr. bach sure of heart failure as an outpatient despite increasing his Bumex to 2 mg b.i.d.. His chronic kidney disease is a contributing factor. Although the aortic valve replacement seemed to be doing quite well on his echo in April we will repeat an echo to make sure that we do not see any thing particularly abnormal such as a pericardial effusion or vegetations. He does have some residual CAD of the right coronary artery but I do not think this is from ischemia. Change p.o. Bumex to: Bumex 1 mg IVP Q8H (trying for a slow gradual diuresis Will continue the carvedilol 12.5 mg b.i.d., his prior dose, because of this acute exacerbation. Unable to use KELLEY inhibitors or ARB because of chronic kidney disease. For CHF but add nitrates. (2) S/P TAVR (transcatheter aortic valve replacement): Code(s): Z95.2 - Presence of prosthetic heart valve Status: Acute Assessment and Plan: TAVR April, good results. (3) CKD (chronic kidney disease), stage IV: Code(s): N18.4 - Chronic kidney disease, stage 4 (severe) Status: Acute Assessment and Plan: Creatinine up in [facility], followed by Dr. Pascual. Follow renal function. (4) Hypertensive heart and renal disease with (congestive) heart failure: Code(s): I13.0 - Hypertensive heart and chronic kidney disease with heart failure and stage 1 through stage 4 chronic kidney disease, or unspecified chronic kidney disease Status: Acute Assessment and Plan: Blood pressure a little high here, continue amlodipine, hydralazine, terazosin etc.. (5) Coronary artery disease involving [place] coronary artery of [place] heart: Code(s): I25.10 - Atherosclerotic heart disease of [place] coronary artery without angina pectoris Status: Acute Assessment and Plan: Has some residual right coronary artery disease (70% stenosis of the ostium of the RCA) which I think is stable. History of Present Illness History of Present Illness Consult date/time: 08/01/20 15:52 Requesting physician: Elizabeth Church DO Consult reason: congestive heart failure Reason For Visit: chf exacerbation Narrative: Mr. Cipriano Garcia is an 85-year-old white male well known to me was asked to see at the request of Dr. Church for my advice and opinion regarding his congestive heart failure in consultation. Mr. Roblero has a history of a TAVR in [address] Esquivel at [facility] with good results. He was hospitalized for angioedema and hematoma of the right parotid area shortly after that, at [place] in April, with blood cultures positive for Kiersten glabrata. He also has history of CAD status post multiple PCIs, moderate LV dysfunction with an EF of 41% by echo and CHARLIE in April (no vegetations, anterior apical anteroseptal hypokinesis), CHF, PAF on amiodarone, PAD status post multiple procedures, sleep apnea, hypertension, diabetes, AAA, moderate carotid disease, polymyalgia rheumatica, and infrapopliteal DVT a few years ago. We have been seeing the patient in the office about every 2 weeks for CHF and modulating his Bumex which usually was 2 mg once a day but we had increased to 2 mg twice a day on 07/18/2020. We also increased his Coreg to 25 mg b.i.d.. However, he has had progressive CHATMAN such that he can't walk across a room without gasping for breath even with his home oxygen, and he has
[2020-08-01] MEDS: WARFARIN (*PBKC) 2.5 MG TABLET PO (17:35)
[2020-08-01] MEDS: BUMETANIDE INJ 1 MG/4 ML VIAL IV PUSH ×2 (17:35→21:11)
--- NOTE | 2020-08-01 17:36 | PM.IMHP ---
H&P: HPI History of Present Illness Date/Time: 08/01/20 17:36 Chief Complaint: Shortness of breath Narrative: Cipriano Garcia is a 85 year old male presented emergency department with complaint of shortness of breath patient recently had a aortic valve repaired with TVAR, patient has been followed by the Cardiology group and have been trying to diurese him orally with Bumex without significant improvement and patient has a persistent CHF and shortness of breath, patient was seen by his boxing promoter and has increased patient is Bumex 1 mg Q8 IV, continue Coreg 12.5 mg b.i.d., and added nitrate, repeat echo is ordered to evaluate aortic valve and any change in ejection fraction from last ejection fraction in April of 45%. There is also concern the patient may COVID-19 patient is being tested and isolated will continue to monitor and follow-up Review of Systems Review of Systems: All systems reviewed & are unremarkable except as noted in HPI and below PMFSH Past Medical History Medical History (Updated 08/01/20 @ 16:35 by Sirisha Oliveira MD) AAA (abdominal aortic aneurysm) without rupture Anemia due to stage 3 chronic kidney disease Aortic valve stenosis, acquired Atherosclerosis of [place] coronary artery of [place] heart Chronic atrial fibrillation, unspecified Chronic heart failure with preserved ejection fraction (HFpEF) CKD (chronic kidney disease) Colostomy in place Hx of ulcerative colitis Hypertension, essential Peripheral vascular disease of lower extremity Type 2 diabetes mellitus with hyperglycemia, without long-term current use of insulin Family History Family History Sibling Patient's sister is in good health Father Family history of malignant neoplasm of bone Family history of malignant neoplasm Patient's father is , Onset Age: 60 Metastatic bone cancer Mother Family history of malignant neoplasm Family history of coronary artery disease STEMI (ST elevation myocardial infarction) Hypertension Mother No problems noted. Other Family history of arthritis Social History Social History (Updated 08/01/20 @ 16:35 by Sirisha Oliveira MD) Social History: pt stated stop smoking 30 years ago. , has heart troubles too. Smoking packs per day: 1 Smoking cigarettes per day: 20.0 Years smoked: 30 Smoking pack-years: 30.00 Smoking status: Former smoker Tobacco type: cigarettes Second hand tobacco smoke exposure: Yes Smoking end date: 06/23/97 Alcohol intake: never Substance use: never Gender identity (if verbalized by the patient): Male Spiritual care concerns: No Meds Home Medications and Allergies Home Medications Medication Instructions Recorded Confirmed Type atorvastatin 40 mg PO HS 04/22/19 08/01/20 History warfarin [Coumadin] 2.5 mg PO DAILY 04/22/19 08/01/20 History blood sugar diagnostic [Relion #50 each 04/26/19 08/01/20 Rx Confirm-Micro] pen needle, diabetic [ReliOn #60 each 04/26/19 08/01/20 Rx Sheldon] blood sugar diagnostic #300 each 04/29/19 08/01/20 Rx lancets #100 each 04/29/19 08/01/20 Rx bumetanide 2 mg tablet 2 mg PO DAILY 05/26/19 08/01/20 History fluticasone propionate 50 1 spray NASAL DAILY #15.8 ml 09/07/19 08/01/20 Rx mcg/actuation nasal spray,suspension amiodarone 200 mg tablet 200 mg PO DAILY #90 tablet 09/10/19 08/01/20 Rx aspirin 81 mg chewable tablet 81 mg PO DAILY #30 tablet 05/12/20 08/01/20 Rx carvedilol 12.5 mg tablet 12.5 mg PO Q12H 05/12/20 08/01/20 History hydralazine 100 mg tablet 100 mg PO TID tablet 05/12/20 08/01/20 History nitroglycerin 0.4 mg sublingual 0.4 mg SUBLINGUAL Q5M PRN 05/12/20 08/01/20 History tablet amlodipine 10 mg tablet 10 mg PO DAILY 06/06/20 08/01/20 History budesonide 160 mcg-glycopyr 9 2 inh INHALATION QAM AND QPM 07/17/20 08/01/20 History mcg-formot 4.8 mcg/actuation HFA inhaler hydrocodone 1
[2020-08-01 17:46] LABS: Glucose Point of Care 81 (65-105)
[2020-08-01 20:31] LABS: Glucose Point of Care 124 (65-105)
[2020-08-01] MEDS: ATORVASTATIN 40 MG TABLET PO (21:11)
[2020-08-01] MEDS: TERAZOSIN HCL 1 MG CAPSULE 2 MG PO (21:11)
[2020-08-02] VITALS (20 sets, daily range): BP systolic 116–151; BP diastolic 46–63; PULSE 58–111; RESP 20–23; TEMP 35.7–36.7; O2SAT 90–96
[2020-08-02 05:09] LABS: Hematocrit 34.5 % (42.0-52.0); Hemoglobin 10.3 g/dL (14.0-18.0); Mean Corpuscular HGB Conc 29.9 g/dl (32-36); Mean Corpuscular Volume 93.8 fl (80-100); Mean Platelet Volume 10.5 fl (7.4-10.4); Platelet Count Result 167 k/mm3 (150-375); Red Blood Count 3.68 M/mm3 (4.6-6.20); Red Cell Distribution Width 15.9 % (11.5-14.5); White Blood Count 7.3 K/mm3 (4.5-10.0)
[2020-08-02 05:23] LABS: INR 2.3; Prothrombin Time 26.2 Seconds (11.1-14.7)
[2020-08-02 05:30] LABS: Anion Gap 2 mmol/L (8-16); Blood Urea Nitrogen 39 mg/dL (9-20); Calcium 8.3 mg/dL (8.4-10.2); Carbon Dioxide 31 mmol/L (22-30); Chloride 111 mmol/L (98-107); Estimated CRCL calculation 19 ml/min; Estimated Glomerular Filt Rate 21; Glucose 94 mg/dL (75-110); Potassium 3.5 mmol/L (3.4-5.0); Sodium 144 mmol/L (137-145)
[2020-08-02] MEDS: BUMETANIDE INJ 1 MG/4 ML VIAL IV PUSH ×2 (05:39→15:17)
--- NOTE | 2020-08-02 06:00 | ECHO_ITS ---
Patient Info Name: Cipriano Garcia Age: 85 years : 1935 Gender: Male Ht: 71 in Wt: 221 lbs BSA: 2.27 m2 HR: 70 bpm BP: 140 / 45 mmHg Heart Rhythm: Sinus Arrhythmia Technical Quality: Good Exam Date: 08/02/2020 11:56 AM Exam Location: [facility] Pulmonary Patient Status: Inpatient Admit Date: 08/01/2020 Staff Ordering Physician: Freda Hernandez MD Bevel Operator: Henry Lara RDCS Attending Provider: Elizabeth Church DO Referring Physician: David MADISON; Exam Type: CA echo doppler color flow Study Info Indications I50.9 - Heart failure, unspecified Complete two-dimensional, color flow and Doppler transthoracic echocardiogram is performed. Strain analysis performed. History/Risk Factors SOB; CHF w/ TAVR, HTN, CKD4, CAD. Summary 1. Complete two-dimensional, color flow and Doppler transthoracic echocardiogram is performed. 2. The left ventricle is moderately enlarged with moderate left ventricular hypertrophy. There is some asymmetric septal hypertrophy noted as well with no evidence of obstruction. There is mild global hypokinesis with akinesis of the apex, anterior apical and lateral apical areas, and hypokinesis of the distal septum and distal lateral kaur. The calculated ejection fraction is 36% and visually appears to be in the 35-40% range. Global longitudinal strain was also significantly diminished at 12% consistent with significant systolic dysfunction. Grade 1 diastolic dysfunction is present. 3. Heavily trabeculated left ventricular apex with false tendon noted; cannot exclude a laminated thrombus. 4. Right ventricular chamber dimension is mildly enlarged with normal function. 5. Left atrial chamber dimension is moderately enlarged. 6. Normal appearing bioprosthetic TAVR valve with a peak transvalvular velocity of 2.2 m/sec, peak gradient 19 mm Hg, mean gradient 9 mm Hg, aortic valve area 1.5 cm2. No regurgitation. 7. There is mild mitral valve regurgitation. 8. There is mild tricuspid valve regurgitation. 9. Moderate pulmonary hypertension, estimated pulmonary arterial systolic pressure is 48 mmHg. 10. Normal sinus rhythm. Left Ventricle Left ventricular chamber dimension is moderately enlarged. Left ventricular systolic function is moderately reduced, estimated at 35-40%. There is moderately increased left ventricular wall thickness. Left ventricular septal wall motion is normal. The left ventricular diastolic function is grade I diastolic dysfunction. Global longitudinal strain is severely elevated at 12 %. Right Ventricle Right ventricular chamber dimension is mildly enlarged with normal function. Right ventricular systolic function is normal. Left Atria Left atrial chamber dimension is moderately enlarged. Right Atria Right atrial chamber dimension is normal. Aortic Valve The TAVR aortic valve is trileaflet. There is no sclerosis of the TAVR aortic valve leaflets. There is no TAVR aortic valve stenosis. There is no regurgitation of the TAVR aortic valve. Pulmonic Valve The pulmonic valve is normal. There is no pulmonic valve stenosis. There is no pulmonic regurgitation. Mitral Valve The mitral valve has thickened leaflets and calcified annulus. There is no mitral valve stenosis. There is mild mitral valve regurgitation. Tricuspid Valve The tricuspid valve leaflets are normal. There is no significant tricuspid valve stenosis. There is mild tricuspid valve regurgitation. Moderate pulmonary hypertension, estimated pulmona
[2020-08-02 09:09] LABS: Glucose Point of Care 99 (65-105)
[2020-08-02] MEDS: carvediloL 12.5 MG TABLET PO ×2 (09:58→18:00)
[2020-08-02] MEDS: FAMOTIDINE 20 MG TABLET PO (10:00)
[2020-08-02] MEDS: ASPIRIN 81 MG CHEWABLE TABLET PO (10:00)
[2020-08-02] MEDS: amLODIPine BESYLATE 5 MG TABLET 10 MG PO (10:00)
[2020-08-02] MEDS: AMIODARONE HCL 200 MG TABLET PO (10:00)
[2020-08-02] MEDS: FLUTICASONE PROPIONATE 0.05% NA SPR 16 GM BTL (*BKC) 1 SPRAY NASAL (10:01)
[2020-08-02] MEDS: GABAPENTIN 300 MG CAPSULE 600 MG PO (10:01)
[2020-08-02] MEDS: hydrALAZINE HCL 50 MG TABLET 100 MG PO ×3 (10:01→18:00)
[2020-08-02] MEDS: HYDROcodone/acetaminophen (*CRX) 10-325 MG TABLET 1 TAB PO ×2 (10:07→22:08)
[2020-08-02 12:32] LABS: Glucose Point of Care 117 (65-105)
[2020-08-02 17:30] LABS: Glucose Point of Care 149 (65-105)
--- NOTE | 2020-08-02 17:33 | PM.IMPN ---
Progress Note: A&P Assessment and Plan (1) Acute on chronic combined systolic and diastolic CHF (congestive heart failure): Code(s): I50.43 - Acute on chronic combined systolic (congestive) and diastolic (congestive) heart failure Status: Acute Assessment and Plan: 08/02/20 17:33 Cipriano Garcia is a 85 year old male presented emergency department with complaint of shortness of breath patient recently had a aortic valve repaired with TVAR, patient has been followed by the Cardiology group and have been trying to diurese him orally with Bumex without significant improvement and patient has a persistent CHF and shortness of breath, patient was seen by his home care administrator and has increased patient is Bumex 1 mg Q8 IV, continue Coreg 12.5 mg b.i.d., and added nitrate, repeat echo is ordered to evaluate aortic valve and any change in ejection fraction from last ejection fraction in April of 45%. There is also concern the patient may COVID-19 patient is being tested and isolated will continue to monitor and follow-up 08/02 patient COVID test is still pending, patient remain in isolation, is feeling better not as short of breath however requiring high-flow oxygen on venti mask, patient cardiac echo is still pending patient be seen by home care administrator and further recommendation to follow (2) CKD (chronic kidney disease): Qualifiers: Chronic kidney disease stage: unspecified stage Qualified Code(s): N18.9 - Chronic kidney disease, unspecified Code(s): N18.9 - Chronic kidney disease, unspecified Status: Acute Assessment and Plan: Patient being diuresed will closely monitor (3) S/P TAVR (transcatheter aortic valve replacement): Code(s): Z95.2 - Presence of prosthetic heart valve Status: Acute Assessment and Plan: Repeat cardiac echo is ordered patient is seen by Cardiology and further recommendation to follow Subjective Date/time seen: 08/02/20 17:33 Cipriano Garcia is a 85 year old male presented emergency department with complaint of shortness of breath patient recently had a aortic valve repaired with TVAR, patient has been followed by the Cardiology group and have been trying to diurese him orally with Bumex without significant improvement and patient has a persistent CHF and shortness of breath, patient was seen by his home care administrator and has increased patient is Bumex 1 mg Q8 IV, continue Coreg 12.5 mg b.i.d., and added nitrate, repeat echo is ordered to evaluate aortic valve and any change in ejection fraction from last ejection fraction in April of 45%. There is also concern the patient may COVID-19 patient is being tested and isolated will continue to monitor and follow-up 08/02 patient COVID test is still pending, patient remain in isolation, is feeling better not as short of breath however requiring high-flow oxygen on venti mask, patient cardiac echo is still pending patient be seen by home care administrator and further recommendation to follow Review of Systems Review of Systems: All systems reviewed & are unremarkable except as noted in HPI and below Exam Narrative: Exam Narrative: Elderly frail Patient is comfortable, NAD HEENT: eyes are clear and none icteric LUNGS: Normal respiratory effort ABD: Moderately distended Lower extremities: edema SKIN: nonjaundiced Neuro: grossly intact normal speech. Objective Data Vital Signs Vital Signs: Vital Signs - 24 hr 08/01/20 17:35 08/01/20 17:37 08/01/20 18:00 Temperature 97.3 F L Pulse Rate 65 65 65 Respiratory Rate 14 Blood Pressure 134/56 L Pulse Oximetry 94 08/01/20 19:59 08/01/20 20:00 08/01/20 21:57 Temperature 97.9 F Pulse Rate 65 59 L 61 Respiratory Rate 18 18 Blood Pressure 138/50 L Pulse Oximetry 97 97 95 08/01/20 22:00 08/01/20 22:10 08/01/20 23:38 Temperature 97.7 F Pulse Rate 61 59 L Respiratory Rate 20 Blood Pressure 130/40 L Pulse Oximetry 89 L 96 08/02/20
[2020-08-02] MEDS: POTASSIUM CHLORIDE 20 MEQ TABLET 40 MEQ PO (17:59)
[2020-08-02] MEDS: WARFARIN (*PBKC) 2.5 MG TABLET PO (18:01)
[2020-08-02 18:18] LABS: SARS-CoV-2 RNA PCR Negative
--- NOTE | 2020-08-02 20:29 | PM.PNCARD ---
Progress Note: A&P Assessment and Plan (1) Acute on chronic combined systolic and diastolic CHF (congestive heart failure): Code(s): I50.43 - Acute on chronic combined systolic (congestive) and diastolic (congestive) heart failure Status: Acute Assessment and Plan: Acute on chronic CHF, EF 41% in April. Although the aortic valve replacement seemed to be doing quite well on his echo in April we will repeat an echo to make sure that we do not see any thing particularly abnormal such as a pericardial effusion or vegetations. Echo pending He does have some residual CAD of the right coronary artery but I do not think this is from ischemia. Changed p.o. Bumex to: Bumex 1 mg IVP Q8H (trying for a slow gradual diuresis). However I am not impressed with the diuresis today so will increase it tmr to 2 mg BID. Will continue the carvedilol 12.5 mg b.i.d., his prior dose, because of this acute exacerbation. Unable to use KELLEY inhibitors or ARB because of chronic kidney disease. For CHF but add nitrates. (2) S/P TAVR (transcatheter aortic valve replacement): Code(s): Z95.2 - Presence of prosthetic heart valve Status: Acute Assessment and Plan: TAVR April, good results. (3) CKD (chronic kidney disease), stage IV: Code(s): N18.4 - Chronic kidney disease, stage 4 (severe) Status: Acute Assessment and Plan: Creatinine up in , followed by Dr. Pascual. Stable here so far. Follow renal function. (4) Hypertensive heart and renal disease with (congestive) heart failure: Code(s): I13.0 - Hypertensive heart and chronic kidney disease with heart failure and stage 1 through stage 4 chronic kidney disease, or unspecified chronic kidney disease Status: Acute Assessment and Plan: Blood pressure a little high here, continue amlodipine, hydralazine, terazosin etc.. 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 Subjective Date/time seen: 08/02/20 20:29 Interval history: Follow-up for congestive heart failure, recent TAVR, EF of 41%, chronic kidney disease. Date of service 08/02/2020: Feeling about the same, comfortable at rest, no PND orthopnea. Not out of bed. Venturi mask at 15 L, O2 sat 92%. COVID negative. Modest diuresis, I's and O's yesterday were 700/1350 cc's. Review of Systems Constitutional: Constitutional: Reports fatigue and Reports weakness ENT: Denies epistaxis and Denies nasal congestion Cardiovascular: Cardiovascular: Denies chest pain, Reports pedal edema, Reports leg edema and Denies palpitations Respiratory: Respiratory: Reports cough and Reports dyspnea on exertion Gastrointestinal: Gastrointestinal: Denies abdominal pain Genitourinary: Genitourinary: Denies hematuria Musculoskeletal: Musculoskeletal: Denies back pain Integumentary/Breasts: Skin/Breast: Denies rash Neurologic: Denies confusion Psychiatric: Psychiatric: Denies behavioral changes Exam Const: General: comfortable and no acute distress HENMT: General nose exam: no epistaxis Mouth: Yes moist mucous membranes Eyes: EOM: EOMs intact bilaterally Neck: Neck: supple Resp: Effort & Inspection: normal respiratory effort Auscultation: clear to auscultation bilaterally Cardio: Rate: regular rate Rhythm: regular rhythm Heart sounds: Murmur heart sound present (1/6 BRADLEY) GI: Inspection: non-distended GI Palp: Yes Soft to palpation and No Firmness to
[2020-08-02] MEDS: TERAZOSIN HCL 1 MG CAPSULE 2 MG PO (21:53)
[2020-08-02] MEDS: ATORVASTATIN 40 MG TABLET PO (21:53)
[2020-08-03] VITALS (19 sets, daily range): BP systolic 131–161; BP diastolic 45–70; PULSE 57–93; RESP 16–20; TEMP 36.2–37.1; O2SAT 92–95
[2020-08-03 00:32] LABS: Glucose Point of Care 154 (65-105)
[2020-08-03 05:24] LABS: Hematocrit 33.3 % (42.0-52.0); Hemoglobin 9.9 g/dL (14.0-18.0); Mean Corpuscular HGB Conc 29.7 g/dl (32-36); Mean Corpuscular Hemoglobin 27.9 pg (26-34); Mean Corpuscular Volume 93.8 fl (80-100); Mean Platelet Volume 10.7 fl (7.4-10.4); Platelet Count Result 172 k/mm3 (150-375); Red Blood Count 3.55 M/mm3 (4.6-6.20); Red Cell Distribution Width 15.6 % (11.5-14.5); White Blood Count 6.4 K/mm3 (4.5-10.0)
[2020-08-03 05:30] LABS: INR 2.2; Prothrombin Time 24.7 Seconds (11.1-14.7)
[2020-08-03 05:38] LABS: Anion Gap 3 mmol/L (8-16); Blood Urea Nitrogen 41 mg/dL (9-20); Calcium 8.3 mg/dL (8.4-10.2); Carbon Dioxide 30 mmol/L (22-30); Chloride 111 mmol/L (98-107); Estimated CRCL calculation 19 ml/min; Estimated Glomerular Filt Rate 21; Glucose 121 mg/dL (75-110); Potassium 3.9 mmol/L (3.4-5.0); Sodium 144 mmol/L (137-145)
[2020-08-03 07:59] LABS: Glucose Point of Care 112 (65-105)
[2020-08-03] MEDS: carvediloL 12.5 MG TABLET PO ×2 (08:28→17:37)
[2020-08-03] MEDS: AMIODARONE HCL 200 MG TABLET PO (08:28)
[2020-08-03] MEDS: BUMETANIDE INJ 2.5 MG/10 ML VIAL 2 MG IV PUSH ×2 (08:29→17:37)
[2020-08-03] MEDS: ASPIRIN 81 MG CHEWABLE TABLET PO (08:29)
[2020-08-03] MEDS: amLODIPine BESYLATE 5 MG TABLET 10 MG PO (08:29)
[2020-08-03] MEDS: GABAPENTIN 300 MG CAPSULE 600 MG PO (08:30)
[2020-08-03] MEDS: FAMOTIDINE 20 MG TABLET PO (08:30)
[2020-08-03] MEDS: hydrALAZINE HCL 50 MG TABLET 100 MG PO ×3 (08:31→17:37)
[2020-08-03 11:55] LABS: Glucose Point of Care 143 (65-105)
--- NOTE | 2020-08-03 12:49 | PHAR ---
The patient's home med of Breztri inhaler has been verified.
[2020-08-03] MEDS: HYDROcodone/acetaminophen (*CRX) 10-325 MG TABLET 1 TAB PO (14:46)
--- NOTE | 2020-08-03 15:19 | PM.PNCARD ---
Progress Note: A&P Assessment and Plan (1) Acute on chronic combined systolic and diastolic CHF (congestive heart failure): Code(s): I50.43 - Acute on chronic combined systolic (congestive) and diastolic (congestive) heart failure Status: Acute Assessment and Plan: Acute on chronic CHF, EF 35-40%. Overall not diuresing well. Edema is better but I think his ascites is worse. Still has pleural effusions on exam. Will continue the carvedilol 12.5 mg b.i.d., his prior dose, because of this acute exacerbation. Unable to use KELLEY inhibitors or ARB because of chronic kidney disease. On hydralazine For CHF but will add isosorbide to it. It will add dobutamine at 5 mics per kilo for a couple of days and see if that helps with diuresis. Chest x-ray tomorrow to reassess. Up to chair. (2) S/P TAVR (transcatheter aortic valve replacement): Code(s): Z95.2 - Presence of prosthetic heart valve Status: Acute Assessment and Plan: TAVR April, good results. (3) CKD (chronic kidney disease), stage IV: Code(s): N18.4 - Chronic kidney disease, stage 4 (severe) Status: Acute Assessment and Plan: Creatinine up and down, followed by Dr. Pascual. Stable here so far. Follow renal function with daily BMPs. (4) Hypertensive heart and renal disease with (congestive) heart failure: Code(s): I13.0 - Hypertensive heart and chronic kidney disease with heart failure and stage 1 through stage 4 chronic kidney disease, or unspecified chronic kidney disease Status: Acute Assessment and Plan: Blood pressure a little high here, continue amlodipine, hydralazine, terazosin etc.. (5) Coronary artery disease involving [place] coronary artery of [place] heart: Code(s): I25.10 - Atherosclerotic heart disease of [place] coronary artery without angina pectoris Status: Acute Assessment and Plan: Has some residual right coronary artery disease (70% stenosis of the ostium of the RCA) which I think is stable. Subjective Date/time seen: 08/03/20 15:19 Interval history: Follow-up for congestive heart failure, recent TAVR, EF of 35-40%, chronic kidney disease. Date of service 08/02/2020: Feeling about the same, comfortable at rest, no PND orthopnea. Not out of bed. Venturi mask at 15 L, O2 sat 92%. COVID negative. Modest diuresis, I's and O's yesterday were 700/1350 cc's. Change Bumex from 1 mg q.8 hours 2:2 mg b.i.d. Date of service 08/03/2020: Feels okay but still on a Venturi mask, not out of bed yet. Less edema. Intake and output was equal yesterday, about the same today. Echo EF 35-40%, but aortic valve looked good. Telemetry shows sinus rhythm with a rare PVC. Review of Systems Constitutional: Constitutional: Reports difficulty sleeping, Reports fatigue and Reports weakness Eyes: Eyes: Reports no additional eye complaints ENT: Denies epistaxis and Denies nasal congestion Cardiovascular: Cardiovascular: Denies chest pain, Reports pedal edema, Reports leg edema, Denies lightheadedness, Denies palpitations, Reports dyspnea and Reports dyspnea on exertion Respiratory: Respiratory: Reports cough, Reports dyspnea, Reports dyspnea on exertion and Denies wheezing Gastrointestinal: Gastrointestinal: Denies abdominal pain, Denies hematochezia and Denies constipation Genitourinary: Genitourinary: Denies hematuria and Denies dysuria Musculoskeletal: Musculoskeletal: Denies back pain and Reports arthralgias Integumentary/Breasts: Skin/Breast: Denies rash Neurologic: Denies behavioral changes, Denies confusion and Reports weakness Psychiatric: Psychiatric: Reports no additional psychiatric complaints, Denies behavioral changes and Denies confusion End
--- NOTE | 2020-08-03 15:33 | PM.IMPN ---
Progress Note: A&P Assessment and Plan (1) Acute on chronic combined systolic and diastolic CHF (congestive heart failure): Code(s): I50.43 - Acute on chronic combined systolic (congestive) and diastolic (congestive) heart failure Status: Acute Assessment and Plan: 08/02/20 17:33 Cipriano Garcia is a 85 year old male presented emergency department with complaint of shortness of breath patient recently had a aortic valve repaired with TVAR, patient has been followed by the Cardiology group and have been trying to diurese him orally with Bumex COVID was ruled out Seen by cardiology today. (2) CKD (chronic kidney disease): Qualifiers: Chronic kidney disease stage: unspecified stage Qualified Code(s): N18.9 - Chronic kidney disease, unspecified Code(s): N18.9 - Chronic kidney disease, unspecified Status: Acute Assessment and Plan: Patient being diuresed will closely monitor BMP (3) S/P TAVR (transcatheter aortic valve replacement): Code(s): Z95.2 - Presence of prosthetic heart valve Status: Acute Assessment and Plan: Repeat cardiac echo is ordered patient is seen by Cardiology and further recommendation to follow Subjective Date/time seen: 08/03/20 15:33 Interval history: Radha is a 85 year old male presented emergency department with complaint of shortness of breath patient recently had a aortic valve repaired with TVAR, patient has been followed by the Cardiology group and have been trying to diurese him orally with Bumex without significant improvement and patient has a persistent CHF and shortness of breath, EF is 45% Covid test is negative pt seen by cardiology Review of Systems Review of Systems: All systems reviewed & are unremarkable except as noted in HPI and below Exam Narrative: Exam Narrative: Elderly frail Patient pleasant elderly LUNGS: diminished BS BL ABD: Moderately distended Lower extremities: edema SKIN: nonjaundiced Neuro: grossly intact normal speech. Objective Data Vital Signs Vital Signs: Vital Signs - 24 hr 08/02/20 16:00 08/02/20 16:22 08/02/20 18:00 Temperature 35.7 C L Pulse Rate 62 62 66 Respiratory Rate 22 H 22 H Blood Pressure 149/52 H Pulse Oximetry 93 93 08/02/20 18:50 08/02/20 20:00 08/02/20 22:00 Temperature 36.2 C L Pulse Rate 62 62 58 L Respiratory Rate 21 H Blood Pressure 129/46 L Pulse Oximetry 92 95 08/02/20 22:10 08/03/20 00:00 08/03/20 02:00 Temperature 36.7 C Pulse Rate 62 57 L 59 L Respiratory Rate 20 Blood Pressure 142/45 H Pulse Oximetry 93 93 08/03/20 04:00 08/03/20 06:00 08/03/20 08:00 Temperature 36.2 C L 36.3 C L Pulse Rate 80 60 59 L Respiratory Rate 20 20 Blood Pressure 153/56 H 147/47 H Pulse Oximetry 94 94 08/03/20 08:28 08/03/20 12:00 Temperature 36.4 C Pulse Rate 67 64 Respiratory Rate 20 Blood Pressure 131/70 Pulse Oximetry 95 Intake/Output Intake/Output: Intake & Output 07/31/20 08/01/20 08/02/20 08/03/20 23:59 23:59 23:59 23:59 Intake Total 730 1320 530 Output Total 1350 1300 560 Balance -620 20 -30 Meds/Results Medications: Active Medications Generic Name Dose Route Start Last Admin Trade Name Freq PRN Reason Stop Dose Admin Hydrocodone Bitart/Acetaminophen 1 tab 08/01/20 08:26 08/03/20 14:46 Hydrocodone/Acetaminophen (*Crx) 10-325 Mg Tablet PO 1 tab Q8H PRN Administration pain Albuterol 2.5 mg 08/01/20 08:37 Albuterol Sulfate Neb 2.5 Mg/0.5 Ml Inh INHALATION TID PRN Shortness Of Breath Amiodarone HCl 200 mg 08/01/20 09:00 08/03/20 08:28 Amiodarone Hcl 200 Mg Tablet PO 200 mg DAILY NIGEL Administration Amlodipine Besylate 10 mg 08/01/20 09:00 08/03/20 08:29 Amlodipine Besylate 5 Mg Tablet PO 10 mg DAILY NIGEL Administration Aspirin 81 mg 08/01/20 09:00 08/03/20 08:29 Aspirin 81 Mg Chewable Tablet PO 81 mg DAILY PENDING SALE TO [facility] Adm
[2020-08-03 16:34] LABS: Glucose Point of Care 129 (65-105)
[2020-08-03] MEDS: DOBUTamine 250 MG/D5W 250 ML 250 MG/250 ML BAG 27.24 MG IV CONT (17:30)
[2020-08-03] MEDS: WARFARIN (*PBKC) 2.5 MG TABLET PO (17:37)
[2020-08-03 20:53] LABS: Glucose Point of Care 124 (65-105)
[2020-08-03] MEDS: ATORVASTATIN 40 MG TABLET PO (21:33)
[2020-08-03] MEDS: TERAZOSIN HCL 1 MG CAPSULE 2 MG PO (21:33)
[2020-08-04] VITALS (25 sets, daily range): BP systolic 135–152; BP diastolic 35–53; PULSE 65–85; RESP 18–22; TEMP 36–37.2; O2SAT 90–98
[2020-08-04] MEDS: DOBUTamine 250 MG/D5W 250 ML 250 MG/250 ML BAG 27.24 MG IV CONT ×3 (02:41→22:16)
[2020-08-04 05:20] LABS: Hematocrit 32.4 % (42.0-52.0); Hemoglobin 9.5 g/dL (14.0-18.0); Mean Corpuscular HGB Conc 29.3 g/dl (32-36); Mean Corpuscular Hemoglobin 26.8 pg (26-34); Mean Corpuscular Volume 91.3 fl (80-100); Mean Platelet Volume 10.2 fl (7.4-10.4); Platelet Count Result 189 k/mm3 (150-375); Red Blood Count 3.55 M/mm3 (4.6-6.20); Red Cell Distribution Width 15.4 % (11.5-14.5); White Blood Count 7.8 K/mm3 (4.5-10.0)
[2020-08-04 05:30] LABS: Prothrombin Time 23.4 Seconds (11.1-14.7)
[2020-08-04 05:35] LABS: Anion Gap 2 mmol/L (8-16); Blood Urea Nitrogen 39 mg/dL (9-20); Carbon Dioxide 34 mmol/L (22-30); Chloride 108 mmol/L (98-107); Estimated CRCL calculation 18 ml/min; Estimated Glomerular Filt Rate 23; Glucose 109 mg/dL (75-110); Potassium 3.5 mmol/L (3.4-5.0); Sodium 144 mmol/L (137-145)
[2020-08-04] MEDS: HYDROcodone/acetaminophen (*CRX) 10-325 MG TABLET 1 TAB PO ×2 (06:46→15:28)
[2020-08-04 07:02] LABS: Glucose Point of Care 111 (65-105)
[2020-08-04] MEDS: AMIODARONE HCL 200 MG TABLET PO (09:17)
[2020-08-04] MEDS: carvediloL 12.5 MG TABLET PO ×2 (09:18→18:00)
[2020-08-04] MEDS: GABAPENTIN 300 MG CAPSULE 600 MG PO (09:18)
[2020-08-04] MEDS: amLODIPine BESYLATE 5 MG TABLET 10 MG PO (09:19)
[2020-08-04] MEDS: ASPIRIN 81 MG CHEWABLE TABLET PO (09:19)
[2020-08-04] MEDS: BUMETANIDE INJ 2.5 MG/10 ML VIAL 2 MG IV PUSH ×2 (09:19→18:00)
[2020-08-04] MEDS: hydrALAZINE HCL 50 MG TABLET 100 MG PO ×3 (09:19→18:00)
[2020-08-04] MEDS: FAMOTIDINE 20 MG TABLET PO (09:19)
[2020-08-04] MEDS: ISOSORBIDE MONONITRATE 30 MG TAB.ER.24H PO (09:24)
--- NOTE | 2020-08-04 12:01 | PM.PNCARD ---
Progress Note: A&P Additional Plan 85-year-old man with valvular heart disease congestive heart failure with fluid overload which appears to be a combination of diastolic dysfunction and renal failure. He has responded to dobutamine which was started yesterday by Dr. Oliveira. Since he has had a good response clinically I will keep this going for at least another 24-48 hours. Hopefully slow oxygen can slowly be weaned although he does require nasal cannula oxygen at home now as well. Pre long-term prognosis is poor given his comorbidities of valvular heart disease renal failure and CHF which is preventing us to use José Miguel inhibitors or angiotensin receptor blockers which would be more effective Geoff Ledezma MD [facility] Subjective Date/time seen: Date of service: 08/04/20 12:01 Interval history: Follow-up for congestive heart failure, recent TAVR, EF of 35-40%, chronic kidney disease. Date of service 08/02/2020: Feeling about the same, comfortable at rest, no PND orthopnea. Not out of bed. Venturi mask at 15 L, O2 sat 92%. COVID negative. Modest diuresis, I's and O's yesterday were 700/1350 cc's. Change Bumex from 1 mg q.8 hours 2:2 mg b.i.d. Date of service 08/03/2020: Feels okay but still on a Venturi mask, not out of bed yet. Less edema. Intake and output was equal yesterday, about the same today. Echo EF 35-40%, but aortic valve looked good. Telemetry shows sinus rhythm with a rare PVC. Date of service 08/04/2020: Patient reports to be feeling significantly better after being started on dobutamine yesterday. He states he had a prompt diuresis although I do not see accurate intake and output chart on the chart. He does feel much less short of breath he is on nasal cannula oxygen now and sitting in a chair having lunch in visiting with his . Exam Narrative: Exam Narrative: Very pleasant older gentleman lying at 30?, with O2, no distress. Const: General: comfortable and no acute distress; No confusion Orientation/consciousness: No confusion HENMT: General nose exam: no epistaxis Mouth: Yes moist mucous membranes Eyes: EOM: EOMs intact bilaterally Neck: Neck: supple Thyroid: thyroid normal Carotids: no bruits Lymphatic: lymphadenopathy (Left parotid enlargement) Resp: Effort & Inspection: normal respiratory effort Auscultation: clear to auscultation bilaterally and diminished lung sounds (Decreased breath about a quarter the way up bilaterally) Cardio: Rate: regular rate Rhythm: regular rhythm Heart sounds: Murmur heart sound present (06/28 BRADLEY) GI: Inspection: distended Other: Colostomy bag Skin: General skin exam: no rashes or lesions noted Neuro: General: No confusion Cognition (Neuro): normal cognition Speech: normal speech Motor exam (neuro): Normal motor muscle tone present throughout Extrem: General: no edema (Mild lower extremity edema) Other: No significant lower extremity edema today Psych: Mental Status: mental status grossly normal Affect: normal affect Other: Getting discouraged that he is not getting better Objective Data Vital Signs Vital Signs: Vital Signs - 24 hr 08/03/20 14:00 08/03/20 16:00 08/03/20 17:30 Temperature 36.5 C Pulse Rate 61 60 61 Respiratory Rate 20 Blood Pressure 136/50 L 136/50 L Pulse Oximetry 94 08/03/20 17:37 08/03/20 18:00 08/03/20 20:00 Temperature 36.8 C Pulse Rate 62 73 74 Respiratory Rate 16 Blood Pressure 161/54 H Pulse Oximetry 92 08/03/20 21:35 08/03/20 21:50 08/03/20 22:00 Temperature Pulse Rate 77 71 Respiratory Rate Blood Pressure Pulse Oximetry 93 08/03/20 23:46 08/04/20 00:00 08/04/20 02:00 Temperature 37.1 C Pulse Rate 69 69 68 Respiratory Rate 18 Blood Pressure 150/51 H 150/51 H Pulse Oximetry 93 93 08/04/20 02:41 08/04/20 04:00 08/04/20 04:02 Temperature 36.8 C Pulse Rate 70 71 71 Respiratory Rate 18 Blood Pressure 152/50 H Pulse Oximetry 92 92 08/04/20 05:
[2020-08-04 12:46] LABS: Glucose Point of Care 144 (65-105)
--- NOTE | 2020-08-04 15:38 | PM.IMPN ---
Progress Note: A&P Assessment and Plan (1) Acute on chronic combined systolic and diastolic CHF (congestive heart failure): Code(s): I50.43 - Acute on chronic combined systolic (congestive) and diastolic (congestive) heart failure Status: Acute Assessment and Plan: Cipriano Garcia is a 85 year old male presented emergency department with complaint of shortness of breath patient recently had a aortic valve repaired with TVAR, patient has been followed by the Cardiology group and have been trying to diurese iv bumex and dobutamine awaiting improvement, cxr today shows ongoing diffuse BL pulmonary edema Seen by cardiology today. (2) CKD (chronic kidney disease): Qualifiers: Chronic kidney disease stage: unspecified stage Qualified Code(s): N18.9 - Chronic kidney disease, unspecified Code(s): N18.9 - Chronic kidney disease, unspecified Status: Acute Assessment and Plan: Patient being diuresed will closely monitor BMP (3) S/P TAVR (transcatheter aortic valve replacement): Code(s): Z95.2 - Presence of prosthetic heart valve Status: Acute Assessment and Plan: Repeat cardiac echo is ordered patient is seen by Cardiology and further recommendation to follow Subjective Date/time seen: 08/04/20 15:38 Interval history: Radha is a 85 year old male presented emergency department with complaint of shortness of breath patient recently had a aortic valve repaired with TVAR, patient has been followed by the Cardiology group and have been trying to diurese him orally with Bumex now on dobutamine, EF is 45%, pt still on 8 liters baseline is 2 liters continue to diuresis. Covid test is negative pt seen by cardiology Review of Systems Review of Systems: All systems reviewed & are unremarkable except as noted in HPI and below Exam Narrative: Exam Narrative: Elderly frail Patient pleasant elderly on 8 liters o f oxygen LUNGS: diminished BS BL ABD: Moderately distended Lower extremities: No pedal edema SKIN: nonjaundiced Neuro: grossly intact normal speech. Objective Data Vital Signs Vital Signs: Vital Signs - 24 hr 08/03/20 16:00 08/03/20 17:30 08/03/20 17:37 Temperature 36.5 C Pulse Rate 60 61 62 Respiratory Rate 20 Blood Pressure 136/50 L 136/50 L Pulse Oximetry 94 08/03/20 18:00 08/03/20 20:00 02/11/21 21:35 Temperature 36.8 C Pulse Rate 73 74 77 Respiratory Rate 16 Blood Pressure 161/54 H Pulse Oximetry 92 08/03/20 21:50 08/03/20 22:00 08/03/20 23:46 Temperature 37.1 C Pulse Rate 71 69 Respiratory Rate 18 Blood Pressure 150/51 H Pulse Oximetry 93 93 08/04/20 00:00 08/04/20 02:00 08/04/20 02:41 Temperature Pulse Rate 69 68 70 Respiratory Rate Blood Pressure 150/51 H Pulse Oximetry 93 08/04/20 04:00 08/04/20 04:02 08/04/20 05:22 Temperature 36.8 C Pulse Rate 71 71 70 Respiratory Rate 18 Blood Pressure 152/50 H Pulse Oximetry 92 92 08/04/20 06:00 08/04/20 08:00 08/04/20 08:30 Temperature 37.1 C Pulse Rate 73 69 Respiratory Rate 22 H Blood Pressure 137/44 L Pulse Oximetry 94 96 08/04/20 08:31 08/04/20 09:17 08/04/20 09:18 Temperature Pulse Rate 70 73 73 Respiratory Rate 20 Blood Pressure Pulse Oximetry 92 08/04/20 12:00 Temperature 36.8 C Pulse Rate 65 Respiratory Rate 20 Blood Pressure 135/53 L Pulse Oximetry 93 Intake/Output Intake/Output: Intake & Output 08/01/20 08/02/20 08/03/20 08/04/20 23:59 23:59 23:59 23:59 Intake Total 730 1320 1490 1040 Output Total 1350 1300 1895 575 Balance -620 20 -405 465 Meds/Results Medications: Active Medications Generic Name Dose Route Start Last Admin Trade Name Freq PRN Reason Stop Dose Admin Hydrocodone Bitart/Acetaminophen 1 tab 08/01/20 08:26 08/04/20 15:28 Hydrocodone/Acetaminophen (*Crx) 10-325 Mg Tablet PO 1 tab Q8H PRN Administration pain Albuterol 2
[2020-08-04] MEDS: WARFARIN (*PBKC) 2.5 MG TABLET PO (18:00)
[2020-08-04] MEDS: TERAZOSIN HCL 1 MG CAPSULE 2 MG PO (20:34)
[2020-08-04] MEDS: ATORVASTATIN 40 MG TABLET PO (20:34)
[2020-08-04 20:41] LABS: Glucose Point of Care 202 (65-105)
[2020-08-05] VITALS (28 sets, daily range): BP systolic 131–155; BP diastolic 36–60; PULSE 62–85; RESP 18–22; TEMP 35.6–36.5; O2SAT 84–98
[2020-08-05 04:48] LABS: Hematocrit 31.8 % (42.0-52.0); Hemoglobin 9.5 g/dL (14.0-18.0); Mean Corpuscular HGB Conc 29.9 g/dl (32-36); Mean Corpuscular Hemoglobin 27.6 pg (26-34); Mean Corpuscular Volume 92.4 fl (80-100); Mean Platelet Volume 10.1 fl (7.4-10.4); Platelet Count Result 155 k/mm3 (150-375); Red Blood Count 3.44 M/mm3 (4.6-6.20); Red Cell Distribution Width 15.6 % (11.5-14.5); White Blood Count 7.6 K/mm3 (4.5-10.0)
[2020-08-05 04:58] LABS: INR 2.1; Prothrombin Time 24.2 Seconds (11.1-14.7)
[2020-08-05 05:05] LABS: Anion Gap 4 mmol/L (8-16); Blood Urea Nitrogen 40 mg/dL (9-20); Calcium 7.9 mg/dL (8.4-10.2); Carbon Dioxide 31 mmol/L (22-30); Chloride 105 mmol/L (98-107); Estimated CRCL calculation 18 ml/min; Estimated Glomerular Filt Rate 23; Glucose 116 mg/dL (75-110); Potassium 3.5 mmol/L (3.4-5.0); Sodium 140 mmol/L (137-145)
[2020-08-05] MEDS: DOBUTamine 250 MG/D5W 250 ML 250 MG/250 ML BAG 27.24 MG IV CONT ×2 (07:32→17:33)
[2020-08-05 07:43] LABS: Glucose Point of Care 121 (65-105)
--- NOTE | 2020-08-05 08:37 | PM.PNCARD ---
Progress Note: A&P Additional Plan 85-year-old man with: Congestive heart failure resistant to outpatient diuretic management in part because of inability to use KELLEY-inhibitor or ARB because of renal insufficiency. He is responding clinically to addition of dobutamine to his regimen. As his FiO2 is still above baseline I would recommend continuing this at least until tomorrow hopefully by that he will be down to 2 L per nasal cannula and if he is stable on that FiO2 we will consider discharge at that time. Geoff Ledezma MD [facility] Subjective Date/time seen: Date of service: 08/05/20 08:37 Interval history: Follow-up for congestive heart failure, recent TAVR, EF of 35-40%, chronic kidney disease. Date of service 08/02/2020: Feeling about the same, comfortable at rest, no PND orthopnea. Not out of bed. Venturi mask at 15 L, O2 sat 92%. COVID negative. Modest diuresis, I's and O's yesterday were 700/1350 cc's. Change Bumex from 1 mg q.8 hours 2:2 mg b.i.d. Date of service 08/03/2020: Feels okay but still on a Venturi mask, not out of bed yet. Less edema. Intake and output was equal yesterday, about the same today. Echo EF 35-40%, but aortic valve looked good. Telemetry shows sinus rhythm with a rare PVC. Date of service 08/04/2020: Patient reports to be feeling significantly better after being started on dobutamine yesterday. He states he had a prompt diuresis although I do not see accurate intake and output chart on the chart. He does feel much less short of breath he is on nasal cannula oxygen now and sitting in a chair having lunch in visiting with his . Date of service 08/05/2020: Appears comfortable offers no cardiovascular complaints today. Continues on IV dobutamine. FiO2 is now being weaned down. Currently on 4 liters/minute with adequate saturation. Exam Narrative: Exam Narrative: Very pleasant older gentleman lying at 30?, with O2, no distress. Const: General: comfortable and no acute distress; No confusion Orientation/consciousness: No confusion HENMT: General nose exam: no epistaxis Mouth: Yes moist mucous membranes Eyes: EOM: EOMs intact bilaterally Neck: Neck: supple Thyroid: thyroid normal Carotids: no bruits Lymphatic: lymphadenopathy (Left parotid enlargement) Resp: Effort & Inspection: normal respiratory effort Auscultation: clear to auscultation bilaterally Other: Scant crackles at the bases bilaterally Cardio: Rate: regular rate Rhythm: regular rhythm Heart sounds: Murmur heart sound present (06/28 BRADLEY) GI: Inspection: distended Other: Colostomy bag Skin: General skin exam: no rashes or lesions noted Neuro: General: No confusion Cognition (Neuro): normal cognition Speech: normal speech Motor exam (neuro): Normal motor muscle tone present throughout Extrem: General: no edema (Mild lower extremity edema) Other: No significant lower extremity edema today Psych: Mental Status: mental status grossly normal Affect: normal affect Other: Getting discouraged that he is not getting better Objective Data Vital Signs Vital Signs: Vital Signs - 24 hr 08/04/20 09:17 08/04/20 09:18 08/04/20 10:00 Temperature Pulse Rate 73 73 72 Respiratory Rate Blood Pressure Pulse Oximetry 08/04/20 12:00 08/04/20 14:00 08/04/20 16:00 Temperature 36.8 C 37.2 C Pulse Rate 70 66 71 Respiratory Rate 20 20 Blood Pressure 135/53 L 141/44 H Pulse Oximetry 98 94 08/04/20 18:00 08/04/20 20:00 08/04/20 22:00 Temperature 36.0 C L Pulse Rate 72 74 76 Respiratory Rate 20 Blood Pressure 147/42 H Pulse Oximetry 90 08/04/20 22:10 08/04/20 22:11 08/04/20 22:16 Temperature Pulse Rate 74 72 72 Respiratory Rate Blood Pressure Pulse Oximetry 08/04/20 23:30 08/04/20 23:31 08/04/20 23:51 Temperature 36.6 C Pulse Rate 74 73 Respiratory Rate 18 Blood Pressure 142/35 H Pulse Oximetry 90 93 08/05/20 00:00 08/05/20 00:30 08/05/20 02
[2020-08-05] MEDS: BUMETANIDE INJ 2.5 MG/10 ML VIAL 2 MG IV PUSH ×2 (08:42→17:31)
[2020-08-05] MEDS: amLODIPine BESYLATE 5 MG TABLET 10 MG PO (08:43)
[2020-08-05] MEDS: hydrALAZINE HCL 50 MG TABLET 100 MG PO ×3 (08:43→17:32)
[2020-08-05] MEDS: FAMOTIDINE 20 MG TABLET PO (08:43)
[2020-08-05] MEDS: ISOSORBIDE MONONITRATE 30 MG TAB.ER.24H PO (08:43)
[2020-08-05] MEDS: ASPIRIN 81 MG CHEWABLE TABLET PO (08:43)
[2020-08-05] MEDS: GABAPENTIN 300 MG CAPSULE 600 MG PO (08:43)
[2020-08-05] MEDS: carvediloL 12.5 MG TABLET PO ×2 (08:43→17:32)
[2020-08-05] MEDS: AMIODARONE HCL 200 MG TABLET PO (08:44)
[2020-08-05 11:35] LABS: Glucose Point of Care 166 (65-105)
[2020-08-05] MEDS: HYDROcodone/acetaminophen (*CRX) 10-325 MG TABLET 1 TAB PO ×2 (12:28→20:46)
--- NOTE | 2020-08-05 13:56 | PM.IMPN ---
Progress Note: A&P Assessment and Plan (1) Acute on chronic combined systolic and diastolic CHF (congestive heart failure): Code(s): I50.43 - Acute on chronic combined systolic (congestive) and diastolic (congestive) heart failure Status: Acute Assessment and Plan: Cipriano Garcia is a 85 year old male presented emergency department with complaint of shortness of breath patient recently had a aortic valve repaired with TVAR, patient has been followed by the Cardiology group and have been trying to diurese iv bumex and dobutamine awaiting improvement, cxr today shows ongoing diffuse BL pulmonary edema Seen by cardiology today. (2) CKD (chronic kidney disease): Qualifiers: Chronic kidney disease stage: unspecified stage Qualified Code(s): N18.9 - Chronic kidney disease, unspecified Code(s): N18.9 - Chronic kidney disease, unspecified Status: Acute Assessment and Plan: Patient being diuresed will closely monitor BMP (3) S/P TAVR (transcatheter aortic valve replacement): Code(s): Z95.2 - Presence of prosthetic heart valve Status: Acute Assessment and Plan: Repeat cardiac echo is ordered patient is seen by Cardiology and further recommendation to follow Subjective Date/time seen: 08/05/20 13:56 Interval history: Radha is a 85 year old male presented emergency department with complaint of shortness of breath patient recently had a aortic valve repaired with TVAR, patient has been followed by the Cardiology group and have been trying to diurese with Iv Bumex now on dobutamine, EF is 45%, pt still on 5 liters baseline is 2 liters continue to diuresis. Pt seen by cardiology, plan is to continue watching the kidney function Review of Systems Review of Systems: All systems reviewed & are unremarkable except as noted in HPI and below Exam Narrative: Exam Narrative: Elderly frail Patient pleasant elderly on 5 liters of oxygen LUNGS: diminished BS BL ABD: Moderately distended Lower extremities: No pedal edema SKIN: nonjaundiced Neuro: grossly intact normal speech. Objective Data Vital Signs Vital Signs: Vital Signs - 24 hr 08/04/20 14:00 08/04/20 16:00 08/04/20 18:00 Temperature 37.2 C Pulse Rate 66 71 72 Respiratory Rate 20 Blood Pressure 141/44 H Pulse Oximetry 94 08/04/20 20:00 08/04/20 22:00 08/04/20 22:10 Temperature 36.0 C L Pulse Rate 74 76 74 Respiratory Rate 20 Blood Pressure 147/42 H Pulse Oximetry 90 08/04/20 22:11 08/04/20 22:16 08/04/20 23:30 Temperature Pulse Rate 72 72 74 Respiratory Rate Blood Pressure Pulse Oximetry 08/04/20 23:31 08/04/20 23:51 08/05/20 00:00 Temperature 36.6 C Pulse Rate 73 72 Respiratory Rate 18 Blood Pressure 142/35 H Pulse Oximetry 90 93 08/05/20 00:30 08/05/20 02:00 08/05/20 02:44 Temperature Pulse Rate 74 70 Respiratory Rate 18 Blood Pressure Pulse Oximetry 94 86 L 08/05/20 03:15 08/05/20 04:00 08/05/20 04:45 Temperature 36.1 C L Pulse Rate 69 Respiratory Rate 18 Blood Pressure 146/36 H Pulse Oximetry 95 93 84 L 08/05/20 05:18 08/05/20 06:00 08/05/20 07:32 Temperature Pulse Rate 71 71 Respiratory Rate Blood Pressure Pulse Oximetry 86 L 08/05/20 07:38 08/05/20 08:00 08/05/20 08:11 Temperature 35.6 C L Pulse Rate 71 71 Respiratory Rate 22 H Blood Pressure 143/44 H Pulse Oximetry 98 91 97 08/05/20 08:43 08/05/20 08:44 08/05/20 09:54 Temperature Pulse Rate 68 68 63 Respiratory Rate Blood Pressure Pulse Oximetry 08/05/20 11:19 08/05/20 12:00 08/05/20 13:45 Temperature 35.7 C L Pulse Rate 62 66 Respiratory Rate 20 Blood Pressure 131/60 Pulse Oximetry 95 93 Intake/Output Intake/Output: Intake & Output 08/02/20 08/03/20 08/04/20 08/05/20 23:59 23:59 23:59 23:59 Intake Total 1320 1490 1770 1270 Output Total 1300 1895 1325 675 B
[2020-08-05 16:29] LABS: Glucose Point of Care 156 (65-105)
[2020-08-05] MEDS: WARFARIN (*PBKC) 2.5 MG TABLET PO (17:31)
[2020-08-05 20:38] LABS: Glucose Point of Care 167 (65-105)
[2020-08-05] MEDS: TERAZOSIN HCL 1 MG CAPSULE 2 MG PO (20:46)
[2020-08-05] MEDS: ATORVASTATIN 40 MG TABLET PO (20:46)
[2020-08-06] VITALS (19 sets, daily range): BP systolic 116–160; BP diastolic 40–58; PULSE 60–76; RESP 18–24; TEMP 35.7–37.1; O2SAT 90–97
[2020-08-06] MEDS: DOBUTamine 250 MG/D5W 250 ML 250 MG/250 ML BAG 27.24 MG IV CONT (03:05)
[2020-08-06 04:52] LABS: Hematocrit 30.6 % (42.0-52.0); Hemoglobin 9.1 g/dL (14.0-18.0); Mean Corpuscular HGB Conc 29.7 g/dl (32-36); Mean Corpuscular Hemoglobin 27.4 pg (26-34); Mean Corpuscular Volume 92.2 fl (80-100); Mean Platelet Volume 10.5 fl (7.4-10.4); Platelet Count Result 151 k/mm3 (150-375); Red Blood Count 3.32 M/mm3 (4.6-6.20); Red Cell Distribution Width 15.4 % (11.5-14.5); White Blood Count 6.3 K/mm3 (4.5-10.0)
[2020-08-06 04:57] LABS: Anion Gap 2 mmol/L (8-16); Blood Urea Nitrogen 40 mg/dL (9-20); Calcium 7.9 mg/dL (8.4-10.2); Carbon Dioxide 32 mmol/L (22-30); Chloride 106 mmol/L (98-107); Estimated CRCL calculation 20 ml/min; Estimated Glomerular Filt Rate 25; Glucose 113 mg/dL (75-110); Potassium 3.5 mmol/L (3.4-5.0); Sodium 140 mmol/L (137-145)
[2020-08-06 04:59] LABS: INR 2.2; Prothrombin Time 24.7 Seconds (11.1-14.7)
[2020-08-06 08:06] LABS: Glucose Point of Care 115 (65-105)
[2020-08-06] MEDS: carvediloL 12.5 MG TABLET PO ×2 (09:09→17:05)
[2020-08-06] MEDS: GABAPENTIN 300 MG CAPSULE 600 MG PO (09:09)
[2020-08-06] MEDS: hydrALAZINE HCL 50 MG TABLET 100 MG PO ×3 (09:09→17:05)
[2020-08-06] MEDS: FAMOTIDINE 20 MG TABLET PO (09:09)
[2020-08-06] MEDS: amLODIPine BESYLATE 5 MG TABLET 10 MG PO (09:09)
[2020-08-06] MEDS: BUMETANIDE INJ 2.5 MG/10 ML VIAL 2 MG IV PUSH (09:10)
[2020-08-06] MEDS: AMIODARONE HCL 200 MG TABLET PO (09:10)
[2020-08-06] MEDS: ISOSORBIDE MONONITRATE 30 MG TAB.ER.24H PO (09:10)
[2020-08-06] MEDS: HYDROcodone/acetaminophen (*CRX) 10-325 MG TABLET 1 TAB PO ×2 (09:11→17:05)
[2020-08-06] MEDS: ASPIRIN 81 MG CHEWABLE TABLET PO (09:18)
--- NOTE | 2020-08-06 11:04 | PM.PNCARD ---
Progress Note: A&P Additional Plan 85-year-old man with: Recurrent congestive heart failure admitted because of problematic edema despite attempts at outpatient management of this. He is now doing much better after several days of dobutamine IV. I am going to stop this today and transition him back to his p.o. dose of Bumex. O2 per nasal cannula is currently at 3 liters/minute. We should try to wean this down to 2 liters/minute which is his baseline at home and if he is adequately saturated he can be discharged in my opinion. Geoff Ledezma MD [facility] Subjective Date/time seen: Date of service: 08/06/20 11:04 Interval history: Follow-up visit in this 85-year-old man with congestive heart failure: Patient seated up in the chair today watching television feels quite well hoping to be discharged soon. No dyspnea and still has IV dobutamine running. Exam Narrative: Exam Narrative: Very pleasant older gentleman lying at 30?, with O2, no distress. Const: General: comfortable and no acute distress; No confusion Orientation/consciousness: No confusion HENMT: General nose exam: no epistaxis Mouth: Yes moist mucous membranes Eyes: EOM: EOMs intact bilaterally Neck: Neck: supple Thyroid: thyroid normal Carotids: no bruits Lymphatic: lymphadenopathy (Left parotid enlargement) Resp: Effort & Inspection: normal respiratory effort Auscultation: clear to auscultation bilaterally Other: Scant crackles at the bases bilaterally Cardio: Rate: regular rate Rhythm: regular rhythm Heart sounds: Murmur heart sound present (1/6 BRADLEY) GI: Inspection: distended Other: Colostomy bag Skin: General skin exam: no rashes or lesions noted Neuro: General: No confusion Cognition (Neuro): normal cognition Speech: normal speech Motor exam (neuro): Normal motor muscle tone present throughout Extrem: General: no edema (Mild lower extremity edema) Other: No significant lower extremity edema today Psych: Mental Status: mental status grossly normal Affect: normal affect Other: Getting discouraged that he is not getting better Objective Data Vital Signs Vital Signs: Vital Signs - 24 hr 08/05/20 11:19 08/05/20 12:00 08/05/20 13:45 Temperature 35.7 C L Pulse Rate 62 66 Respiratory Rate 20 Blood Pressure 131/60 Pulse Oximetry 95 93 08/05/20 16:00 08/05/20 16:31 08/05/20 17:32 Temperature 36.5 C Pulse Rate 79 75 73 Respiratory Rate 22 H Blood Pressure 155/49 H Pulse Oximetry 94 97 08/05/20 17:37 08/05/20 19:49 08/05/20 20:00 Temperature 36.1 C L Pulse Rate 74 75 73 Respiratory Rate 20 Blood Pressure 153/49 H Pulse Oximetry 94 94 08/05/20 20:37 08/05/20 22:00 08/05/20 23:58 Temperature 36.1 C L Pulse Rate 70 72 72 Respiratory Rate 20 20 Blood Pressure 145/46 H Pulse Oximetry 94 90 08/06/20 00:00 08/06/20 02:00 08/06/20 04:00 Temperature 36.0 C L Pulse Rate 72 72 72 Respiratory Rate 20 Blood Pressure 160/40 H Pulse Oximetry 90 91 08/06/20 06:00 08/06/20 08:00 08/06/20 08:15 Temperature 36.1 C L Pulse Rate 68 67 69 Respiratory Rate 20 Blood Pressure 153/52 H Pulse Oximetry 92 93 08/06/20 09:09 08/06/20 09:10 08/06/20 10:00 Temperature Pulse Rate 70 76 65 Respiratory Rate Blood Pressure Pulse Oximetry Intake/Output Intake/Output: Intake & Output 08/03/20 08/04/20 08/05/20 08/06/20 23:59 23:59 23:59 23:59 Intake Total 1490 1770 2160 990 Output Total 1895 1325 1550 1200 Balance -405 445 610 -210 Meds/Results Medications: Active Medications Generic Name Dose Route Start Last Admin Trade Name Freq PRN Reason Stop Dose Admin Hydrocodone Bitart/Acetaminophen 1 tab 08/01/20 08:26 08/06/20 09:11 Hydrocodone/Acetaminophen (*Crx) 10-325 Mg Tablet PO 1 tab Q8H PRN Administration pain Albuterol 2.5 mg 08/01/20 08:37 Albuterol Sulfate Neb 2.5 Mg/0.5 Ml Inh INHALATION TID PRN Shortness Of Breath
[2020-08-06 11:47] LABS: Glucose Point of Care 144 (65-105)
[2020-08-06] MEDS: POTASSIUM CHLORIDE 20 MEQ TABLET 40 MEQ PO (12:47)
[2020-08-06] MEDS: ACETAMINOPHEN 325 MG TABLET 650 MG PO (14:21)
--- NOTE | 2020-08-06 15:25 | PM.IMPN ---
Progress Note: A&P Assessment and Plan (1) Acute on chronic combined systolic and diastolic CHF (congestive heart failure): Code(s): I50.43 - Acute on chronic combined systolic (congestive) and diastolic (congestive) heart failure Status: Acute Assessment and Plan: 08/06/20 15:25 Cipriano Garcia is a 85 year old male presented emergency department with complaint of shortness of breath patient recently had a aortic valve repaired with TVAR, patient has been followed by the Cardiology group and have been trying to diurese him orally with Bumex without significant improvement and patient has a persistent CHF and shortness of breath, patient was seen by his stretcher helper and has increased patient is Bumex 1 mg Q8 IV, continue Coreg 12.5 mg b.i.d., and added nitrate, repeat echo is ordered to evaluate aortic valve and any change in ejection fraction from last ejection fraction in April of 45%. There is also concern the patient may COVID-19 patient is being tested and isolated will continue to monitor and follow-up 08/06 patient COVID test is negative patient recently had a aortic valve repaired with TVAR, presented with persistent shortness of breath secondary to congestive heart failure, patient had a cardiac echo showed significant reduce systolic function with ejection fraction 25-30%, TVAR surgery of aortic valve was normal on echo, patient is being diuresed however cannot a KELLEY-inhibitor or A due to acute kidney injury, patient was placed on IV dobutamin has been responding well, today patient was seen by Cardiology and stopped donutamin drip, started back on Bumex, will continue to monitor patient overnight if remains clinically stable may discharge the patient home tomorrow (2) CKD (chronic kidney disease): Qualifiers: Chronic kidney disease stage: unspecified stage Qualified Code(s): N18.9 - Chronic kidney disease, unspecified Code(s): N18.9 - Chronic kidney disease, unspecified Status: Acute Assessment and Plan: Patient being diuresed will closely monitor (3) S/P TAVR (transcatheter aortic valve replacement): Code(s): Z95.2 - Presence of prosthetic heart valve Status: Acute Assessment and Plan: Repeat cardiac echo is ordered patient is seen by Cardiology and further recommendation to follow Subjective Date/time seen: 08/06/20 15:25 Cipriano Garcia is a 85 year old male presented emergency department with complaint of shortness of breath patient recently had a aortic valve repaired with TVAR, patient has been followed by the Cardiology group and have been trying to diurese him orally with Bumex without significant improvement and patient has a persistent CHF and shortness of breath, patient was seen by his stretcher helper and has increased patient is Bumex 1 mg Q8 IV, continue Coreg 12.5 mg b.i.d., and added nitrate, repeat echo is ordered to evaluate aortic valve and any change in ejection fraction from last ejection fraction in April of 45%. There is also concern the patient may COVID-19 patient is being tested and isolated will continue to monitor and follow-up 08/06 patient COVID test is negative patient recently had a aortic valve repaired with TVAR, presented with persistent shortness of breath secondary to congestive heart failure, patient had a cardiac echo showed significant reduce systolic function with ejection fraction 25-30%, TVAR surgery of aortic valve was normal on echo, patient is being diuresed however cannot a KELLEY-inhibitor or A due to acute kidney injury, patient was placed on IV dobutamin has been responding well, today patient was seen by Cardiology and stopped donutamin drip, started back on Bumex, will continue to monitor patient overnight if remains clinically stable may discharge the patient home tomorrow Review of Systems Review of Systems: All systems reviewed & are unremarkable except as noted in HPI and below Exam Narrative: Exam Narrative:
[2020-08-06 16:43] LABS: Glucose Point of Care 122 (65-105)
[2020-08-06] MEDS: WARFARIN (*PBKC) 2.5 MG TABLET PO (17:05)
--- NOTE | 2020-08-06 17:46 | PC.NURSE ---
This patient, Cipriano Garcia, was transferred to [ [facility]] on 08/06/20 at 1747. Personal belongings sent with patient. Report given to [nayana ]. Appropriate documentation sent with patient.
[2020-08-06] MEDS: TERAZOSIN HCL 1 MG CAPSULE 2 MG PO (20:26)
[2020-08-06] MEDS: ATORVASTATIN 40 MG TABLET PO (20:26)
[2020-08-06 22:00] LABS: Glucose Point of Care 139 (65-105)
[2020-08-07] VITALS (9 sets, daily range): BP systolic 127–150; BP diastolic 43–49; PULSE 58–71; RESP 16–18; TEMP 36.1–36.4; O2SAT 90–92
[2020-08-07] MEDS: HYDROcodone/acetaminophen (*CRX) 10-325 MG TABLET 1 TAB PO (05:19)
[2020-08-07 06:10] LABS: Hematocrit 34.7 % (42.0-52.0); Hemoglobin 10.1 g/dL (14.0-18.0); Mean Corpuscular HGB Conc 29.1 g/dl (32-36); Mean Corpuscular Hemoglobin 26.7 pg (26-34); Mean Corpuscular Volume 91.8 fl (80-100); Mean Platelet Volume 10.7 fl (7.4-10.4); Platelet Count Result 149 k/mm3 (150-375); Red Blood Count 3.78 M/mm3 (4.6-6.20); Red Cell Distribution Width 15.3 % (11.5-14.5); White Blood Count 5.6 K/mm3 (4.5-10.0)
[2020-08-07 06:21] LABS: Anion Gap 3 mmol/L (8-16); Blood Urea Nitrogen 38 mg/dL (9-20); Carbon Dioxide 32 mmol/L (22-30); Chloride 108 mmol/L (98-107); Estimated CRCL calculation 20 ml/min; Estimated Glomerular Filt Rate 25; Glucose 122 mg/dL (75-110); Potassium 3.8 mmol/L (3.4-5.0); Sodium 143 mmol/L (137-145)
[2020-08-07 06:34] LABS: INR 1.8; Prothrombin Time 21.2 Seconds (11.1-14.7)
[2020-08-07 08:02] LABS: Glucose Point of Care 120 (65-105)
[2020-08-07] MEDS: carvediloL 12.5 MG TABLET PO (08:51)
[2020-08-07] MEDS: AMIODARONE HCL 200 MG TABLET PO (08:52)
[2020-08-07] MEDS: FAMOTIDINE 20 MG TABLET PO (08:53)
[2020-08-07] MEDS: ASPIRIN 81 MG CHEWABLE TABLET PO (08:53)
[2020-08-07] MEDS: FLUTICASONE PROPIONATE 0.05% NA SPR 16 GM BTL (*BKC) 1 SPRAY NASAL (08:53)
[2020-08-07] MEDS: hydrALAZINE HCL 50 MG TABLET 100 MG PO (08:53)
[2020-08-07] MEDS: amLODIPine BESYLATE 5 MG TABLET 10 MG PO (08:53)
[2020-08-07] MEDS: BUMETANIDE 1 MG TABLET 2 MG PO (08:53)
[2020-08-07] MEDS: GABAPENTIN 300 MG CAPSULE 600 MG PO (08:53)
[2020-08-07] MEDS: ISOSORBIDE MONONITRATE 30 MG TAB.ER.24H PO (08:54)
--- NOTE | 2020-08-07 10:44 | PM.DS ---
DS: Admitting Diagnosis Admitting Diagnosis Admitting Diagnosis: Chief Complaint: Shortness of breath DS: Discharge Diagnosis Discharge Diagnosis (1) Acute on chronic combined systolic and diastolic CHF (congestive heart failure): Code(s): I50.43 - Acute on chronic combined systolic (congestive) and diastolic (congestive) heart failure Status: Acute Assessment and Plan: 08/06/20 15:25 Cipriano Garcia is a 85 year old male presented emergency department with complaint of shortness of breath patient recently had a aortic valve repaired with TVAR, patient has been followed by the Cardiology group and have been trying to diurese him orally with Bumex without significant improvement and patient has a persistent CHF and shortness of breath, patient was seen by his hyster driver and has increased patient is Bumex 1 mg Q8 IV, continue Coreg 12.5 mg b.i.d., and added nitrate, repeat echo is ordered to evaluate aortic valve and any change in ejection fraction from last ejection fraction in April of 45%. There is also concern the patient may COVID-19 patient is being tested and isolated will continue to monitor and follow-up 08/06 patient COVID test is negative patient recently had a aortic valve repaired with TVAR, presented with persistent shortness of breath secondary to congestive heart failure, patient had a cardiac echo showed significant reduce systolic function with ejection fraction 25-30%, TVAR surgery of aortic valve was normal on echo, patient is being diuresed however cannot a KELLEY-inhibitor or A due to acute kidney injury, patient was placed on IV dobutamin has been responding well, today patient was seen by Cardiology and stopped donutamin drip, started back on Bumex, will continue to monitor patient overnight if remains clinically stable may discharge the patient home tomorrow (2) CKD (chronic kidney disease): Qualifiers: Chronic kidney disease stage: unspecified stage Qualified Code(s): N18.9 - Chronic kidney disease, unspecified Code(s): N18.9 - Chronic kidney disease, unspecified Status: Acute Assessment and Plan: Patient being diuresed will closely monitor (3) S/P TAVR (transcatheter aortic valve replacement): Code(s): Z95.2 - Presence of prosthetic heart valve Status: Acute Assessment and Plan: Repeat cardiac echo is ordered patient is seen by Cardiology and further recommendation to follow DS: Summary Hospital Course Reason for hospitalization: Chief Complaint: Shortness of breath Narrative: Cipriano Garcia is a 85 year old male presented emergency department with complaint of shortness of breath patient recently had a aortic valve repaired with TVAR, patient has been followed by the Cardiology group and have been trying to diurese him orally with Bumex without significant improvement and patient has a persistent CHF and shortness of breath, patient was seen by his hyster driver and has increased patient is Bumex 1 mg Q8 IV, continue Coreg 12.5 mg b.i.d., and added nitrate, repeat echo is ordered to evaluate aortic valve and any change in ejection fraction from last ejection fraction in April of 45%. There is also concern the patient may COVID-19 patient is being tested and isolated will continue to monitor and follow-up Hospital Course: Cipriano Garcia is a 85 year old male presented emergency department with complaint of shortness of breath patient recently had a aortic valve repaired with TVAR, patient has been followed by the Cardiology group and have been trying to diurese him orally with Bumex without significant improvement and patient has a persistent CHF and shortness of breath, patient was seen by his hyster driver and has increased patient is Bumex 1 mg Q8 IV, continue Coreg 12.5 mg b.i.d., and added nitrate, repeat echo is ordered to evaluate aortic valve and any change in ejection fraction from last ejection fraction in April of 45%. There is also janusz
--- NOTE | 2020-08-07 10:59 | PM.PNCARD ---
Progress Note: A&P Assessment and Plan (1) Acute on chronic combined systolic and diastolic CHF (congestive heart failure): Code(s): I50.43 - Acute on chronic combined systolic (congestive) and diastolic (congestive) heart failure Status: Acute Assessment and Plan: Acute on chronic CHF, EF 35-40%. Overall not diuresing well. Edema is better but I think his ascites is worse. Still has pleural effusions on exam. Will continue the carvedilol 12.5 mg b.i.d., his prior dose, because of this acute exacerbation. Unable to use KELLEY inhibitors or ARB because of chronic kidney disease. On hydralazine For CHF but will add isosorbide to it. stable off dobutamine. Feels okay. Okay for discharge from my perspective and follow-up with Dr. daniels (2) S/P TAVR (transcatheter aortic valve replacement): Code(s): Z95.2 - Presence of prosthetic heart valve Status: Acute Assessment and Plan: TAVR April, good results. (3) CKD (chronic kidney disease), stage IV: Code(s): N18.4 - Chronic kidney disease, stage 4 (severe) Status: Acute Assessment and Plan: Creatinine up and down, followed by Dr. Pascual. Stable here so far. (4) Hypertensive heart and renal disease with (congestive) heart failure: Code(s): I13.0 - Hypertensive heart and chronic kidney disease with heart failure and stage 1 through stage 4 chronic kidney disease, or unspecified chronic kidney disease Status: Acute Assessment and Plan: Blood pressure a little high here, continue amlodipine, hydralazine, terazosin etc.. (5) Coronary artery disease involving [place] coronary artery of [place] heart: Code(s): I25.10 - Atherosclerotic heart disease of [place] coronary artery without angina pectoris Status: Acute Assessment and Plan: Has some residual right coronary artery disease (70% stenosis of the ostium of the RCA) which I think is stable. Additional Plan 85-year-old man with: Recurrent congestive heart failure admitted because of problematic edema despite attempts at outpatient management of this. He is now doing much better after several days of dobutamine IV. I am going to stop this today and transition him back to his p.o. dose of Bumex. O2 per nasal cannula is currently at 3 liters/minute. We should try to wean this down to 2 liters/minute which is his baseline at home and if he is adequately saturated he can be discharged in my opinion. Geoff Ledezma MD [facility] Subjective Date/time seen: 08/07/20 10:59 Interval history: Follow-up visit in this 85-year-old man with congestive heart failure: date of service 08/07/2020: He feels well. Denies any chest pain or shortness of breath. Review of Systems Constitutional: Constitutional: Reports difficulty sleeping, Reports fatigue and Reports weakness Eyes: Eyes: Reports no additional eye complaints ENT: Denies epistaxis and Denies nasal congestion Cardiovascular: Cardiovascular: Denies chest pain, Reports pedal edema, Reports leg edema, Denies lightheadedness, Denies palpitations, Reports dyspnea and Reports dyspnea on exertion Respiratory: Respiratory: Reports cough, Reports dyspnea, Reports dyspnea on exertion and Denies wheezing Gastrointestinal: Gastrointestinal: Denies abdominal pain, Denies hematochezia and Denies constipation Genitourinary: Genitourinary: Denies hematuria and Denies dysuria Musculoskeletal: Musculoskeletal: Denies back pain and Reports arthralgias Integumentary/Breasts: Skin/Breast: Denies rash Neurologic: Denies behavioral changes, Denies confusion and Reports weakness Psychiatric: Psychiatric: Reports no additional psychiatric complaints, Denies behavioral changes and Denies confusion Endocrine: Endocrine:
[2020-08-07] MEDS: ACETAMINOPHEN 325 MG TABLET 650 MG PO (12:11)
--- NOTE | 2020-08-07 13:10 | PCPTNOTE ---
PT eval attempted- patient dressed with d/c papers, getting ready to leave. Refused PT. MLV
== END 2020-08-07 16:50 | disposition home or self-care (01) | DRG 291 ==
LOC: ANHED 20:42 → ANHIMU 08-01 00:31 → ANH3MED 08-07 10:44 → ANHIMU 08-10 14:21
PROVIDERS: Admitting Provider Internal Medicine; Emergency Provider Emergency Medicine; PCP Internal Medicine; Visit Provider Family Medicine
DX: I13.0 Hypertensive heart and chronic kidney disease with heart failure and stage 1 through stage 4 chronic kidney disease, or unspecified chronic kidney disease (principal); I50.43 Acute on chronic combined systolic (congestive) and diastolic (congestive) heart failure; I48.20 Chronic atrial fibrillation, unspecified; N18.4 Chronic kidney disease, stage 4 (severe); Z20.822 Contact with and (suspected) exposure to COVID-19; D63.1 Anemia in chronic kidney disease; E11.51 Type 2 diabetes mellitus with diabetic peripheral angiopathy without gangrene; I73.9 Peripheral vascular disease, unspecified; I35.0 Nonrheumatic aortic (valve) stenosis; G47.30 Sleep apnea, unspecified; I25.10 Atherosclerotic heart disease of native coronary artery without angina pectoris; Z87.891 Personal history of nicotine dependence; Z79.01 Long term (current) use of anticoagulants; Z95.2 Presence of prosthetic heart valve; Z93.3 Colostomy status
CPT/HCPCS: 36415; 36600; 71045; 80048; 80053; 82375; 82805; 82948; 83050; 83605; 83735; 83880; 84484; 85025; 85027; 85610; 85730; 87040; 93005; 93306; 94002; 94003; 94640; 96374; 96375; 97165; 99285; A9270; C9803; G0378; J1250; J1940; U0003; U0005

== ENCOUNTER 2020-08-23 12:36 | Outpatient (CLI) | payer MEDICARE, SELFPAY ==
[2020-08-23] VITALS (7 sets, daily range): PULSE 52–58; O2SAT 86–90
[2020-08-23 13:24] LABS: Basophils Percent Auto 0.5 % (0.2-1.2); Eosinophils Absolute Auto 0.1 K/mm3 (0-0.3); Eosinophils Percent Auto 1.7 % (0-4.4); Hematocrit 32.6 % (42.0-52.0); Hemoglobin 9.5 g/dL (14.0-18.0); Immature Granulocyte Absolute 0.02 K/mm3 (0.00-0.031); Immature Granulocyte Percent A 0.3 % (0-0.5); Lymphocytes Absolute Auto 0.76 K/mm3 (0.9-3.2); Lymphocytes Percent Auto 12.6 % (18.3-44.2); Mean Corpuscular HGB Conc 29.1 g/dl (32-36); Mean Corpuscular Hemoglobin 27.2 pg (26-34); Mean Corpuscular Volume 93.4 fl (80-100); Mean Platelet Volume 10.5 fl (7.4-10.4); Monocytes Absolute Auto 0.7 K/mm3 (0.1-0.6); Monocytes Percent Auto 11.9 % (2.6-8.5); Neutrophils Absolute Auto 4.4 K/mm3 (1.3-6.7); Platelet Count Result 161 k/mm3 (150-375); Red Blood Count 3.49 M/mm3 (4.6-6.20); Red Cell Distribution Width 15.8 % (11.5-14.5)
[2020-08-23 13:37] LABS: Anion Gap 6 mmol/L (8-16); Blood Urea Nitrogen 45 mg/dL (9-20); Calcium 8.3 mg/dL (8.4-10.2); Carbon Dioxide 27 mmol/L (22-30); Chloride 109 mmol/L (98-107); Estimated Glomerular Filt Rate 21; Glucose 102 mg/dL (75-110); Potassium 3.7 mmol/L (3.4-5.0); Sodium 142 mmol/L (137-145)
--- NOTE | 2020-08-23 13:57 | HOMEO2EVAL ---
Home Oxygen Evaluation RC: Home Oxygen (O2) Evaluation Start: 08/23/20 13:41 Freq: Status: Active Protocol: RPE Activity Type Activity Date Activity User E-Sign Co-Sign Detail Recorded Client Recorded Date Recorded By Document 08/23/20 12:40 [email or web address] [email or web address] 08/23/20 13:56 DJO Document 08/23/20 12:45 [email or web address] [email or web address] 08/23/20 13:56 DJO Document 08/23/20 12:50 [email or web address] [email or web address] 08/23/20 13:56 DJO Document 08/23/20 12:55 [email or web address] [email or web address] 08/23/20 13:56 DJO Document 08/23/20 13:00 [email or web address] [email or web address] 08/23/20 13:56 DJO Document 08/23/20 13:15 [email or web address] [email or web address] 08/23/20 13:56 DJO Document 08/23/20 13:25 [email or web address] [email or web address] 08/23/20 13:56 DJO 08/23/20 08/23/20 08/23/20 12:40 12:45 12:50 Home O2 Evaluation Test Phase Resting Resting Resting Oxygen Delivery Room Air Nasal Cannula Nasal Cannula Oxygen Flow Rate (L/min) 1 2 Pulse Oximetry (90-100 %) 86 L 87 L 90 Pulse Rate (60-100 beats/min) 54 L 54 L 53 L Activity Tolerance Ambulation Distance (feet) Treatment Charges O2 Evaluation - Inpatient 08/23/20 08/23/20 08/23/20 12:55 13:00 13:15 Home O2 Evaluation Test Phase Exercise Exercise Exercise Oxygen Delivery Nasal Cannula Nasal Cannula Nasal Cannula Oxygen Flow Rate (L/min) 2 3 4 Pulse Oximetry (90-100 %) 86 L 88 L 90 Pulse Rate (60-100 beats/min) 56 L 58 L Activity Tolerance Fair Ambulation Distance (feet) 300 Treatment Charges 08/23/20 13:25 Home O2 Evaluation Test Phase Resting Oxygen Delivery Nasal Cannula Oxygen Flow Rate (L/min) 2 Pulse Oximetry (90-100 %) 90 Pulse Rate (60-100 beats/min) 52 L Activity Tolerance Ambulation Distance (feet) Treatment Charges
== END 2020-08-23 12:37 | disposition home or self-care (01) ==
PROVIDERS: PCP Internal Medicine; Referring Provider Internal Medicine Cardiovascular Disease; Visit Provider Internal Medicine Critical Care Medicine
DX: I50.9 Heart failure, unspecified (principal)
CPT/HCPCS: 36415; 80048; 85025; 94618

== ENCOUNTER 2020-09-07 12:46 | Outpatient (CLI) | payer MEDICARE, SELFPAY ==
--- NOTE | ~2020-09-07 | XR_ITS ---
EXAMINATION: XR chest 2V DATE: 09/07/2020 13:07 INDICATION: Congestive heart failure. TECHNIQUE: Frontal and lateral views of the chest were obtained. COMPARISON: Chest single view 08/04/2020, chest CT 04/24/2020 FINDINGS: There are lucencies in the lungs, consistent with emphysema. There is a diffuse interstitia l pattern in the lungs, consistent with mild pulmonary edema. There are small pleural effusions. Ther e are airspace opacities at the lung bases. No pneumothorax. The heart size is normal. There are villalobos ges of aortic valve replacement. Surgical clips overlie right chest. IMPRESSION: 1. Mild pulmonary edema. 2. Emphysema. 3. Airspace opacities at the lung bases, consistent with atelectasis versus pneumonia. 4. Small pleural effusions. Reviewed, dictated and finalized at location A. IMPRESSION: 1. Mild pulmonary edema. 2. Emphysema. 3. Airspace opacities at the lung bases, consistent with atelectasis versus pne umonia. 4. Small pleural effusions.
== END 2020-09-07 12:47 | disposition home or self-care (01) ==
LOC: ANHIMG 12:50
PROVIDERS: PCP Internal Medicine; Visit Provider Internal Medicine Cardiovascular Disease
DX: I50.9 Heart failure, unspecified (principal); J43.9 Emphysema, unspecified; R91.8 Other nonspecific abnormal finding of lung field; J90 Pleural effusion, not elsewhere classified
CPT/HCPCS: 71046

== ENCOUNTER 2020-09-22 12:07 | Outpatient (CLI) | payer MEDICARE, SELFPAY ==
[2020-09-22 13:06] LABS: Anion Gap 7 mmol/L (8-16); Blood Urea Nitrogen 66 mg/dL (9-20); Calcium 8.4 mg/dL (8.4-10.2); Carbon Dioxide 36 mmol/L (22-30); Chloride 99 mmol/L (98-107); Estimated Glomerular Filt Rate 16; Glucose 260 mg/dL (75-110); Potassium 2.7 mmol/L (3.4-5.0); Sodium 142 mmol/L (137-145)
== END 2020-09-22 12:08 | disposition home or self-care (01) ==
PROVIDERS: PCP Internal Medicine; Visit Provider Internal Medicine Cardiovascular Disease
DX: Z51.81 Encounter for therapeutic drug level monitoring (principal); Z79.899 Other long term (current) drug therapy; I48.0 Paroxysmal atrial fibrillation
CPT/HCPCS: 36415; 80048

== ENCOUNTER 2020-09-25 09:23 | Outpatient (CLI) | payer MEDICARE, SELFPAY ==
[2020-09-25 10:06] LABS: Anion Gap 6 mmol/L (8-16); Blood Urea Nitrogen 57 mg/dL (9-20); Calcium 8.3 mg/dL (8.4-10.2); Carbon Dioxide 30 mmol/L (22-30); Chloride 105 mmol/L (98-107); Estimated Glomerular Filt Rate 20; Glucose 285 mg/dL (75-110); Potassium 3.5 mmol/L (3.4-5.0); Sodium 141 mmol/L (137-145)
== END 2020-09-25 09:24 | disposition home or self-care (01) ==
PROVIDERS: PCP Internal Medicine; Visit Provider Internal Medicine Cardiovascular Disease
DX: I42.0 Dilated cardiomyopathy (principal)
CPT/HCPCS: 36415; 80048

== ENCOUNTER 2020-09-28 12:18 | Outpatient (CLI) | payer MEDICARE, SELFPAY ==
--- NOTE | 2020-09-28 18:01 | P.PCNPFT_ITS ---
PFT Interpretation This is a pulmonary function test with spirometry, plethysmography and diffusing capacity. The test was performed and results interpreted in accordance with the 2019 and 2005 ATS/ERS Task Force guidelines respectively using the Global Lung Function Initiative-2012 reference equations. Patient demonstrated good effort and cooperation. Reproducibility criteria were met. The quality of the pre bronchodilator spirometry maneuver was Grade A. Findings: Spirometry:There is decreased maximal expiratory airflow at all lung volumes with concave expiratory flow tracing. The contour the inspiratory flow tracing is normal. The FVC is 2.26 L, 66% predicted. The FEV1 is 1.24 L, 49% predicted. The FEV1: FVC ratio is 55%. Plethysmography: The total lung capacity is 4.18 L, 65% predicted. The functional residual capacity is 2.50, 72% predicted. The residual volume is 1.92 L, 75% predicted. Diffusing capacity: The absolute diffusion capacity is 4.7, 22% predicted. The diffusing capacity corrected for alveolar volume is 1.39, 37% predicted. In comparison to the only previous study in our laboratory from 12/26/2014 the FVC has decreased from 2.60 L to 2.26 L. The FEV1 has decreased from 1.67 L to 1.24 L. The total lung capacity has decreased from 5.43 L to 4.18 L. The functional residual capacity has decreased from 3.12 L to 2.50 L. The residual volume has decreased from 2.80 L to 1.92 L. the absolute diffusion capacity is decreased from 7.5 to 4.7. The diffusing capacity corrected for alveolar volume has decreased from 1.85 to 1.39. Impression: There is a combined obstructive and restrictive ventilatory abnormality. There are no guidelines to assign the severity of obstruction and restriction with a combined abnormality. In my opinion, given the moderately concave expiratory flow tracing and moderately decreased FEV1: FVC ratio and moderate restrictive abnormality I would state there is a moderate obstructive a bnormality and a moderate restrictive abnormality resulting in a severely decreased FEV1. The diffusing capacity is severely decreased and remains severely decreased when corrected for alveolar volume. In comparison to the prior pulmonary function test on 12/26/2014 there has been a greater than anticipated time dependent decrease in FVC, FEV1, total lung capacity, functional residual capacity, residual volume, absolute diffusion capacity and diffusing capacity corrected for alveolar volume. Clinical correlation is recommended. PFT Procedure Performed PFT Procedure Performed Plethysmography (Lung Vol) Diffusing Cap (DLCO) Spirometry w/o Bronchodil
== END 2020-09-28 12:19 | disposition home or self-care (01) ==
PROVIDERS: PCP Internal Medicine; Visit Provider Internal Medicine Cardiovascular Disease
DX: R06.02 Shortness of breath (principal); Z79.899 Other long term (current) drug therapy; R94.2 Abnormal results of pulmonary function studies
CPT/HCPCS: 94375; 94726; 94729

== ENCOUNTER 2020-10-11 10:38 | Outpatient (CLI) | payer MEDICARE, SELFPAY ==
[2020-10-11 11:03] LABS: Hematocrit 33.1 % (42.0-52.0); Hemoglobin 9.4 g/dL (14.0-18.0)
[2020-10-11 11:17] LABS: Alanine Aminotransferase 17 U/L (4-50); Albumin Level 3.3 g/dL (3.5-5.1); Alkaline Phosphatase 131 U/L (38-126); Anion Gap 4 mmol/L (8-16); Aspartate Amino Transferase 23 U/L (17-59); Bilirubin,Total 0.3 mg/dL (0.2-1.3); Blood Urea Nitrogen 31 mg/dL (9-20); Carbon Dioxide 28 mmol/L (22-30); Chloride 111 mmol/L (98-107); Cholesterol 103 mg/dL (0-200); Estimated Glomerular Filt Rate 23; Glucose 288 mg/dL (75-110); HDL Direct 37 mg/dL; Potassium 3.6 mmol/L (3.4-5.0); Sodium 143 mmol/L (137-145); Triglycerides 214 mg/dL (<150)
[2020-10-11 11:19] LABS: Hemoglobin A1C 6.5 % (<5.7)
[2020-10-11 11:28] LABS: LDL Cholesterol Direct 34 mg/dL
[2020-10-11 11:49] LABS: Vitamin D 25 Hydroxy 23.8 ng/mL
== END 2020-10-11 10:39 | disposition home or self-care (01) ==
PROVIDERS: PCP Internal Medicine; Referring Provider Internal Medicine Cardiovascular Disease; Visit Provider Internal Medicine
DX: D64.9 Anemia, unspecified (principal); I50.42 Chronic combined systolic (congestive) and diastolic (congestive) heart failure; E78.5 Hyperlipidemia, unspecified; E55.9 Vitamin D deficiency, unspecified; E11.21 Type 2 diabetes mellitus with diabetic nephropathy; I13.0 Hypertensive heart and chronic kidney disease with heart failure and stage 1 through stage 4 chronic kidney disease, or unspecified chronic kidney disease
CPT/HCPCS: 36415; 80053; 80061; 82306; 83036; 85014; 85018

== ENCOUNTER 2020-11-11 10:37 | Emergency (ER) | payer MEDICARE, SELFPAY ==
--- NOTE | 2020-11-11 10:41 | ED.EXTPRO ---
HPI - Extremity Problem General Chief complaint: Extremity Problem,Nontraumatic Stated complaint: Right elbow pain Time Seen by Provider: 11/11/20 10:55 Source: patient and RN notes reviewed Mode of arrival: ambulatory Limitations: no limitations History of Present Illness HPI Narrative: 85-year-old male presents concern for redness, warmth, swelling tenderness to the lateral right elbow. Reports pain started 3 days ago after fishing. He denies any injury, trauma. He reports area is tender to touch, and hurts to straighten the arm. He denies any distal pain, redness, swelling. Denies any shoulder pain. Denies fever, malaise. Denies any open skin or areas with drainage. Reports he has been putting pain cream on it and taking pain medicine with little relief. MD Complaint: extremity pain Related Data Home Medications Medication Instructions Recorded Confirmed atorvastatin 40 mg PO HS 04/22/19 11/11/20 warfarin [Coumadin] 2.5 mg PO DAILY 04/22/19 11/11/20 gabapentin 600 mg PO DAILY 08/01/20 11/11/20 terazosin 2 mg PO HS 08/01/20 11/11/20 glipizide 5 mg tablet 5 mg PO DAILY 10/05/20 11/11/20 hydralazine 100 mg tablet 100 mg PO BID tablet 10/05/20 11/11/20 amiodarone 200 mg PO DIRECTED 11/11/20 11/11/20 amlodipine 10 mg PO DAILY 11/11/20 11/11/20 bumetanide 2 mg PO DAILY 11/11/20 11/11/20 carvedilol 25 mg PO DAILY 11/11/20 11/11/20 metolazone 2.5 mg PO DAILY 11/11/20 11/11/20 Allergies Allergy/AdvReac Type Severity Reaction Status Date / Time prednisolone Allergy Severe Loss of Verified 11/11/20 11:07 Consciousness prednisone Allergy Severe Loss of Verified 11/11/20 11:07 Consciousness adhesive tape Allergy Mild Rash Verified 11/11/20 11:07 atorvastatin Allergy Unknown Muscle Pain Verified 11/11/20 11:07 flecainide Allergy Unknown FEET Verified 11/11/20 11:07 NUMBNESS Review of Systems Review of Systems: Narrative: CONSTITUTIONAL: Denies malaise, chills, sweats, or fever. SKIN: Reports red, tender, swollen area of the right elbow, denies open skin MUSCULOSKELETAL: Denies musculoskeletal pain NEUROLOGIC: Denies numbness, weakness All systems reviewed & are unremarkable except as noted in HPI and below PMFSH Past Medical History Medical History (Updated 11/11/20 @ 11:08 by Marine Horn NP) AAA (abdominal aortic aneurysm) without rupture Anemia due to stage 3 chronic kidney disease Aortic valve stenosis, acquired Atherosclerosis of [place] coronary artery of [place] heart Chronic atrial fibrillation, unspecified Chronic heart failure with preserved ejection fraction (HFpEF) CKD (chronic kidney disease) Colostomy in place Hx of ulcerative colitis Hypertension, essential Peripheral vascular disease of lower extremity Pulmonary necrosis Type 2 diabetes mellitus with hyperglycemia, without long-term current use of insulin Family History Family History Sibling Patient's sister is in good health Father Family history of malignant neoplasm of bone Family history of malignant neoplasm Patient's father is , Onset Age: 60 Metastatic bone cancer Mother Family history of malignant neoplasm Family history of coronary artery disease STEMI (ST elevation myocardial infarction) Hypertension Mother No problems noted. Other Family history of arthritis Social History Social History (Updated 10/05/20 @ 13:10 by Dory Canales MA) Social History: pt stated stop smoking 30 years ago. , has heart troubles too. Smoking packs per day: 1.5 Smoking cigarettes per day: 30.0 Years smoked: 40 Smoking pack-years: 60.00 Tobacco type: cigarettes Second hand tobacco smoke exposure: No Smoking end date: 06/23/88 Alcohol intake: never Substance use: never Gender identity (if verbalized by the patient): Male Spiritual care concerns: No Comments At time of signature, agree with nursing past medi
[2020-11-11 10:46] VITALS: BP 140/47; PULSE 72; RESP 20; TEMP 37.4; O2SAT 86
== END 2020-11-11 11:10 | disposition home or self-care (01) ==
PROVIDERS: Emergency Provider Nurse Practitioner; PCP Internal Medicine
DX: L03.113 Cellulitis of right upper limb (principal); I13.0 Hypertensive heart and chronic kidney disease with heart failure and stage 1 through stage 4 chronic kidney disease, or unspecified chronic kidney disease; E11.22 Type 2 diabetes mellitus with diabetic chronic kidney disease; N18.30 Chronic kidney disease, stage 3 unspecified; I50.9 Heart failure, unspecified; I25.10 Atherosclerotic heart disease of native coronary artery without angina pectoris; I48.20 Chronic atrial fibrillation, unspecified; I73.9 Peripheral vascular disease, unspecified; Z93.3 Colostomy status; J85.0 Gangrene and necrosis of lung; Z87.891 Personal history of nicotine dependence
CPT/HCPCS: 99213; G0463

== ENCOUNTER 2020-11-23 10:20 | Outpatient (CLI) | payer MEDICARE, SELFPAY ==
[2020-11-23 10:46] LABS: Hematocrit 31.9 % (42.0-52.0); Hemoglobin 9.2 g/dL (14.0-18.0); Immature Platelet Fraction Pct 6.4 % (0.9-11.2); Mean Corpuscular HGB Conc 28.8 g/dl (32-36); Mean Corpuscular Hemoglobin 25.8 pg (26-34); Mean Corpuscular Volume 89.6 fl (80-100); Mean Platelet Volume 13.3 fl (7.4-10.4); Platelet Count Result 115 k/mm3 (150-375); Red Blood Count 3.56 M/mm3 (4.6-6.20); White Blood Count 6.8 K/mm3 (4.5-10.0)
[2020-11-23 10:54] LABS: Anion Gap 8 mmol/L (8-16); Blood Urea Nitrogen 41 mg/dL (9-20); Calcium 8.5 mg/dL (8.4-10.2); Carbon Dioxide 26 mmol/L (22-30); Chloride 109 mmol/L (98-107); Estimated Glomerular Filt Rate 25; Glucose 190 mg/dL (75-110); Potassium 4.2 mmol/L (3.4-5.0); Sodium 143 mmol/L (137-145)
== END 2020-11-23 10:21 | disposition home or self-care (01) ==
PROVIDERS: PCP Internal Medicine; Visit Provider Nurse Practitioner
DX: N18.9 Chronic kidney disease, unspecified (principal); D64.9 Anemia, unspecified
CPT/HCPCS: 36415; 80048; 85027; 85055

== ENCOUNTER 2020-12-16 10:20 | Outpatient (CLI) | payer MEDICARE, SELFPAY ==
[2020-12-16 10:48] LABS: Albumin Level 3.9 g/dL (3.5-5.1); Anion Gap 11 mmol/L (8-16); Blood Urea Nitrogen 68 mg/dL (9-20); Calcium 8.8 mg/dL (8.4-10.2); Carbon Dioxide 30 mmol/L (22-30); Chloride 102 mmol/L (98-107); Estimated Glomerular Filt Rate 17; Glucose 137 mg/dL (75-110); Phosphorus 4.9 mg/dL (2.5-4.5); Sodium 143 mmol/L (137-145)
== END 2020-12-16 10:21 | disposition home or self-care (01) ==
PROVIDERS: PCP Internal Medicine; Visit Provider Internal Medicine Nephrology
DX: N18.4 Chronic kidney disease, stage 4 (severe) (principal)
CPT/HCPCS: 36415; 80069

== ENCOUNTER 2020-12-22 13:21 | Outpatient (CLI) | payer MEDICARE, SELFPAY ==
--- NOTE | ~2020-12-22 | XR_ITS ---
EXAMINATION: XR chest 2V DATE: 12/22/2020 13:41 INDICATION: Chronic combined systolic and diastolic heart failure. Shortness of breath. TECHNIQUE: Frontal and lateral views of the chest were obtained. COMPARISON: Chest 2 views 09/07/2020, chest CT 04/24/2020 FINDINGS: The lungs are hyperexpanded with lucencies, consistent with emphysema. A calcified right pati ng nodule and calcified right hilar lymph nodes are consistent with old granulomatous disease. No sig nificant pleural effusion. No pneumothorax. The heart size is normal. There are prominent paracardial fat pads. There are changes of degenerative fat replacement. Surgical clips overlie right chest. IMPRESSION: 1. Emphysema. Reviewed, dictated and finalized at location A. IMPRESSION: 1. Emphysema.
== END 2020-12-22 13:22 | disposition home or self-care (01) ==
LOC: ANHIMG 13:26
PROVIDERS: PCP Internal Medicine; Visit Provider Internal Medicine Cardiovascular Disease
DX: I50.42 Chronic combined systolic (congestive) and diastolic (congestive) heart failure (principal); J43.9 Emphysema, unspecified
CPT/HCPCS: 71046

== ENCOUNTER 2020-12-30 11:20 | Observation (INO) | payer MEDICARE, SELFPAY ==
[2020-12-30] VITALS (12 sets, daily range): BP systolic 150–182; BP diastolic 53–84; PULSE 56–64; RESP 12–28; TEMP 36.7–36.9; O2SAT 94–100; BMI 29.2
--- NOTE | 2020-12-30 | ECG_ITS ---
Measurements Intervals Redig Rate: 59 P: 265 MT: 124 QRS: -43 QRSD: 165 T: 124 QT: 527 QTc: 526 Interpretive Statements SINUS BRADYCARDIA LEFT AXIS DEVIATION LEFT BUNDLE BRANCH BLOCK BASELINE ARTIFACT- I, II, III, AVR, AVL, AVF, V1-V6 ABNORMAL ECG Electronically Signed On 12-30-2020 15:16:41 CDT by Petar Dunaway D.O.
--- NOTE | ~2020-12-30 | XR_ITS ---
XR chest 2V 12/30/2020 15:06 Indication: Cough Procedure: AP and lateral views of the chest Comparison: Comparison to multiple prior studies sequentially, with oldest reviewed study dated 01/2021. Findings: Cardiomegaly. There is a stent at the base of the aorta. There is chronic bibasilar atelect asis/scarring. No acute focal pneumonia, edema or effusion. No acute osseous abnormality. Impression: 1: No acute cardiopulmonary disease. 2: Chronic bibasilar atelectasis/scarring. 3: Cardiomegaly. Reviewed, dictated and finalized at location A. Impression: 1: No acute cardiopulmonary disease. 2: Chronic bibasilar atelectasis/scarring. 3: Cardiomegaly.
--- NOTE | ~2020-12-30 | CT_ITS ---
EXAMINATION: CT brain wo con DATE: 12/30/2020 12:18 INDICATION: Dizziness. TECHNIQUE: Computed tomography (CT) of the head was performed without intravenous contrast. The mA wa s adjusted according to patient size. Iterative reconstruction technique was employed. The dose-lengt h product was 605.33 mGy-cm. COMPARISON: Head CT 04/19/2019 FINDINGS: There is no intracranial hemorrhage, acute infarction, or abnormal intracranial mass lesion . There are scattered areas of low attenuation in the cerebral white matter, which is within normal l imits for the patient's age. The ventricles are normal in size. There is mucosal thickening in the pa ranasal sinuses. There are likely changes of ocular lens replacement surgeries. The mastoid air cells are normal. IMPRESSION: 1. Normal aging brain. Reviewed, dictated and finalized at location A. IMPRESSION: 1. Normal aging brain.
--- NOTE | ~2020-12-30 | US_ITS ---
EXAMINATION: US carotid duplex BI DATE: 12/31/2020 08:46 INDICATION: Presyncope. TECHNIQUE: Grayscale, color Doppler, and pulsed Doppler images of the cervical carotid arteries were obtained. The degree of vessel stenosis is placed in one of the following categories: normal, <50%, 5 0-69%, >=70% but less than near-occlusion, near-occlusion, or total occlusion. Note that percent sten osis relative to normal distal artery lumen diameter is indirectly measured from velocity measurement s as described by Lance, et al. Radiology 2003; [id number]. COMPARISON: None. FINDINGS: RIGHT: The right common carotid artery (CCA) peak systolic velocity (PSV) is 87 cm/s. The right internal car otid artery (ICA) PSV is 223 cm/s. The right ICA end-diastolic velocity (EDV) is 53 cm/s. The right I CA/CCA PSV ratio is 2.6. Grayscale and color Doppler images yield an estimate of >=50% diameter reduc tion from plaque in the ICA. There is antegrade flow in the right vertebral artery. LEFT: The left CCA PSV is 142 cm/s. The left ICA PSV is 195 cm/s. The left ICA EDV is 44 cm/s. The left ICA /CCA PSV ratio is 1.4. Grayscale and color Doppler images yield an estimate of >=50% diameter reducti on from plaque in the ICA. There is antegrade flow in the left vertebral artery. IMPRESSION: 1. 50-69% stenosis in the right internal carotid artery. 2. 50-69% stenosis in the left internal carotid artery. Reviewed, dictated and finalized at location A.
--- NOTE | 2020-12-30 11:23 | ED.WEAKNESS ---
HPI - Weakness General Chief complaint: Weakness Stated complaint: weakness Time Seen by Provider: 12/30/20 11:23 Source: patient and EMS Mode of arrival: wheelchair Limitations: no limitations History of Present Illness HPI Narrative: Patient is an 85-year-old male with a history of hypertension, congestive heart failure, atrial fibrillation, chronic kidney disease who presents via EMS for evaluation of dizziness. Patient reports intermittent dizziness over the past 12 hours. He has had 3 episodes of dizziness, the first occurred when the patient was at rocking, and he became dizzy with ambulation. This lasted only a few seconds before resolving. The second episode which happened last night when he stood up to walk from his living room into the kitchen, caused a short episode of dizziness and also resolved quickly.. Episode occurred this morning and occurred with standing with dizziness that has now lasted for approximately 30 minutes. Patient denies any spinning sensation, states he is not able to characterize the dizziness. Patient states he feels generally weak but denies any focal weakness or numbness. He denies any chest pain, shortness of breath, abdominal pain or back pain. No recent medication changes. He denies fever, chills, earache, rhinorrhea, cough or congestion. Patient has been compliant with his medications. He denies any nausea or vomiting, reports normal oral intake with good hydration. Related Data Home Medications Medication Instructions Recorded Confirmed atorvastatin 40 mg PO HS 04/22/19 11/21/20 gabapentin 600 mg PO DAILY 08/01/20 11/21/20 glipizide 5 mg tablet 5 mg PO DAILY 10/05/20 11/21/20 hydralazine 100 mg tablet 100 mg PO BID tablet 10/05/20 11/21/20 bumetanide 2 mg PO DAILY 11/11/20 11/21/20 carvedilol 25 mg PO DAILY 11/11/20 11/21/20 warfarin 3 mg tablet 2.5 mg PO DAILY 11/14/20 11/21/20 metolazone 5 mg tablet 5 mg PO DAILY 12/06/20 Allergies Allergy/AdvReac Type Severity Reaction Status Date / Time prednisolone Allergy Severe Loss of Verified 12/30/20 11:23 Consciousness prednisone Allergy Severe Loss of Verified 12/30/20 11:23 Consciousness adhesive tape Allergy Mild Rash Verified 12/30/20 11:23 atorvastatin Allergy Unknown Muscle Pain Verified 12/30/20 11:23 flecainide Allergy Unknown FEET Verified 12/30/20 11:23 NUMBNESS Review of Systems Review of Systems: Narrative: CONSTITUTIONAL: Denies fever, chills, or sweats. EYES: Denies visual changes, redness, or discharge. ENT: Denies rhinorrhea, congestion, sore throat, or otalgia. CARDIOVASCULAR: Denies chest pain, palpitations, or edema. RESPIRATORY: Denies cough or dyspnea. GASTROINTESTINAL: Denies abdominal pain, nausea, vomiting, or diarrhea. GENITOURINARY: Denies dysuria or hematuria. SKIN: Denies rash or itching. MUSCULOSKELETAL: Denies back pain, joint pain, or myalgia. NEUROLOGIC: Denies headache, numbness, reports feeling weak without focal weakness or numbness, reports dizziness PMFSH Past Medical History Medical History AAA (abdominal aortic aneurysm) without rupture Anemia due to stage 3 chronic kidney disease Aortic valve stenosis, acquired Atherosclerosis of [place] coronary artery of [place] heart Chronic atrial fibrillation, unspecified Chronic heart failure with preserved ejection fraction (HFpEF) CKD (chronic kidney disease) Colostomy in place Hx of ulcerative colitis Hypertension, essential Peripheral vascular disease of lower extremity Pulmonary necrosis Type 2 diabetes mellitus with hyperglycemia, without long-term current use of insulin Family History Family History Sibling Patient's sister is in good health Father Family history of malignant neoplasm of bone Family history of malignant neoplasm Patient's father is , Onset Age: 60 Metastatic bone cancer Mother Family histor
[2020-12-30] MEDS: MECLIZINE HCL 25 MG TABLET PO (11:57)
[2020-12-30] MEDS: ONDANSETRON INJ 4 MG/2 ML VIAL IV PUSH (11:58)
[2020-12-30 12:09] LABS: Basophils Percent Auto 0.3 % (0.2-1.2); Eosinophils Absolute Auto 0.3 K/mm3 (0-0.3); Eosinophils Percent Auto 4.1 % (0-4.4); Hematocrit 34.4 % (42.0-52.0); Hemoglobin 9.7 g/dL (14.0-18.0); Immature Granulocyte Absolute 0.03 K/mm3 (0.00-0.031); Immature Granulocyte Percent A 0.5 % (0-0.5); Lymphocytes Absolute Auto 0.65 K/mm3 (0.9-3.2); Lymphocytes Percent Auto 10.3 % (18.3-44.2); Mean Corpuscular HGB Conc 28.2 g/dl (32-36); Mean Corpuscular Volume 92.2 fl (80-100); Mean Platelet Volume 12.7 fl (7.4-10.4); Monocytes Absolute Auto 0.6 K/mm3 (0.1-0.6); Monocytes Percent Auto 9.1 % (2.6-8.5); Neutrophils Absolute Auto 4.8 K/mm3 (1.3-6.7); Neutrophils Percent Auto 75.7 % (45.5-73.1); Platelet Count Result 120 k/mm3 (150-375); Red Blood Count 3.73 M/mm3 (4.6-6.20); Red Cell Distribution Width 17.3 % (11.5-14.5); White Blood Count 6.3 K/mm3 (4.5-10.0)
[2020-12-30 12:18] LABS: Hypochromasia 2+ (NORMAL)
[2020-12-30 12:20] LABS: Anion Gap 8 mmol/L (8-16); Blood Urea Nitrogen 63 mg/dL (9-20); Calcium 8.6 mg/dL (8.4-10.2); Carbon Dioxide 31 mmol/L (22-30); Chloride 104 mmol/L (98-107); Estimated CRCL calculation 19 ml/min; Estimated Glomerular Filt Rate 21; Glucose 240 mg/dL (75-110); Potassium 3.6 mmol/L (3.4-5.0); Sodium 143 mmol/L (137-145)
--- NOTE | 2020-12-30 12:55 | PC.NURSE ---
Called to patients room by patients . Patient is not alert at this time but is moaning. Dr. Kathleen at bedside at this time. states patient was shaking before you came into room.
[2020-12-30 13:06] LABS: INR 1.9; Prothrombin Time 21.2 Seconds (11.1-14.7)
[2020-12-30 13:07] LABS: Partial Thromboplastin Time 35.4 SECONDS (22.3-36.8)
[2020-12-30 13:16] LABS: Add Urine Microscopic? YES; Appearance Urine Clear (Clear); Bilirubin Urine Negative (Negative); Blood Urine Negative (Negative); Color Urine Straw (Yellow); Glucose Urine UA 2+ mg/dL (Negative); Ketones Urine Negative (Negative); Leukocyte Esterase Ur Negative LEU/UL (Negative); Nitrate Urine Negative (Negative); Protein Urine Negative (Negative); Urobilinogen Urine Negative mg/dL (<2.0); WBC Urine 0-3 /hpf
[2020-12-30 13:22] LABS: Troponin I 0.035 ng/mL (0.000-0.034)
--- NOTE | 2020-12-30 16:30 | PM.IMHP ---
H&P: HPI History of Present Illness Date/Time: 12/30/20 16:30 Chief Complaint: Dizziness. Narrative: This is an 85-year-old male with chronic respiratory failure on 2 L nasal cannula, aortic stenosis status post aortic valve replacement, paroxysmal atrial fibrillation, coronary artery disease, peripheral arterial disease, hypertension, dyslipidemia, and mixed systolic and diastolic congestive heart failure who presented to the emergency department today via EMS from home for evaluation of dizziness. It is difficult for him to describe accurately what he has been feeling and at times he tells me he has been feeling lightheaded as though he may pass out and other times he reports feeling like he is rocking or falling, even when sitting down. He has had 3 such episodes in the last 12 hours or so. Last evening he felt lightheaded when ambulating to the living room and that past within a few seconds after sitting down. The symptoms returned when he stood up last night but that resolved quite quickly as well. This morning he had a good morning, took the dog outside, had his breakfast and coffee, got ready for the day, and somewhere around 10:00 while standing in the kitchen he once again began feeling dizzy. He checked his glucose right away and his levels were not concerning, reportedly 128 this morning. While in the emergency department the patient began moaning, had mumbling speech, and was tremulous for short period of time. On re-evaluation, the emergency department physician noted that he was able to follow commands and there was no abnormal rhythm on telemetry, transient oxygen desaturation, tongue bite, or evidence of incontinence and clinically she did not feel like this was consistent with seizure activity. Based on his symptoms and lack of neurology coverage this weekend I requested that she speak with Neurology and she spoke with Dr. Diana, on-call neurologist at [facility], who did not feel that this was consistent with seizure activity or even stroke-like activity however recommends observation overnight and possible MRI. He did not feel a need for an EEG nor did he feel the patient need to be transferred. At the time my evaluation he seems to be in his usual state of health and he has no specific complaints. He specifically denies headache, current vertigo or dizziness, auditory and visual changes, focal weakness, paresthesias (aside from chronic needles in his legs and feet), dysphagia, dysarthria, chest pain, palpitations, and shortness of breath. Review of Systems Review of Systems: Narrative: Twelve systems were reviewed with pertinent positives and negatives as per HPI. He denies fever, chills, and sweats. No recent cold or flu symptoms. No exposure to those positive for COVID-19. He has an intermittent tremor of his left hand which is unchanged. will experience blurry vision with elevated glucose and that has occurred sometimes this week. He denies polydipsia and polyuria. No nausea, vomiting, diarrhea, or dysuria. Reports chronic tinnitus. Has chronic, mild lower extremity edema which is unchanged. Except as documented, all other systems were reviewed and are negative. [facility] Past Medical History Medical History (Updated 12/31/20 @ 00:10 by Kiana Strong PA-C) Abdominal aortic aneurysm Anemia in chronic kidney disease Aortic valve stenosis, acquired Status post aortic valve replacement. Arthritis Atherosclerosis of [place] coronary artery of [place] heart Chronic anticoagulation Chronic atrial fibrillation, unspecified Chronic kidney disease, stage 4 (severe) Baseline creatinine is around 2.90. 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 Could not exclude a laminated thrombus. Diabetic peripheral neuropathy Dyslipidemi
[2020-12-30 17:06] LABS: Troponin I 0.032 ng/mL (0.000-0.034)
--- NOTE | 2020-12-30 17:44 | ADMGEN ---
This patient, Cipriano Garcia, was admitted to IMU Room 204-01. Patient/family oriented to hospital policies and general routines including ID bracelet, bed and alarms, visiting hours, pain management, procedures, bathroom and other care routines, personal items, smoking policy, room service/diet, and visiting hours. Information on how to activate the Rapid Response Team has been discussed. Patient/Family are encouraged to report perceived risks to care and to ask questions if they do not understand what they are told or what they should do.
[2020-12-30 20:16] LABS: Troponin I 0.034 ng/mL (0.000-0.034)
[2020-12-31] VITALS (15 sets, daily range): BP systolic 119–162; BP diastolic 50–69; PULSE 52–88; RESP 12–14; TEMP 36.6–37.1; O2SAT 92–96
[2020-12-31] MEDS: HYDROcodone/acetaminophen (*CRX) 10-325 MG TABLET 1 TAB PO ×2 (03:54→20:45)
[2020-12-31 05:19] LABS: Hematocrit 33.9 % (42.0-52.0); Hemoglobin 9.7 g/dL (14.0-18.0); Immature Platelet Fraction Pct 8.1 % (0.9-11.2); Mean Corpuscular HGB Conc 28.6 g/dl (32-36); Mean Corpuscular Hemoglobin 26.4 pg (26-34); Mean Corpuscular Volume 92.1 fl (80-100); Mean Platelet Volume 13.2 fl (7.4-10.4); Platelet Count Result 106 k/mm3 (150-375); Red Blood Count 3.68 M/mm3 (4.6-6.20); Red Cell Distribution Width 17.1 % (11.5-14.5); White Blood Count 6.5 K/mm3 (4.5-10.0)
[2020-12-31 05:35] LABS: INR 1.9; Prothrombin Time 21.3 Seconds (11.1-14.7)
[2020-12-31 05:36] LABS: Hemoglobin A1C 7.6 % (<5.7)
[2020-12-31 05:46] LABS: Anion Gap 8 mmol/L (8-16); Blood Urea Nitrogen 58 mg/dL (9-20); Calcium 8.7 mg/dL (8.4-10.2); Carbon Dioxide 33 mmol/L (22-30); Chloride 104 mmol/L (98-107); Estimated CRCL calculation 16 ml/min; Estimated Glomerular Filt Rate 19; Glucose 131 mg/dL (75-110); Magnesium 2.3 mg/dL (1.6-2.3); Potassium 3.3 mmol/L (3.4-5.0); Sodium 145 mmol/L (137-145)
[2020-12-31 06:24] LABS: Thyroid Stimulating Hormone Reflex 0.262 uIU/mL (0.465-4.68)
[2020-12-31 06:47] LABS: Folic Acid 10.1 ng/mL (2.76->20)
[2020-12-31 06:53] LABS: Free T4 Free Thyroxine Reflex 1.54 ng/dL (0.78-2.19)
[2020-12-31] MEDS: SALMETEROL XINAFOATE 50 MCG DISKUS 1 PUFF INHALATION ×2 (08:54→20:42)
[2020-12-31] MEDS: GABAPENTIN 300 MG CAPSULE 600 MG PO (08:56)
[2020-12-31] MEDS: TERAZOSIN HCL 1 MG CAPSULE 2 MG PO (08:57)
[2020-12-31] MEDS: ISOSORBIDE MONONITRATE 30 MG TAB.ER.24H PO (08:57)
[2020-12-31] MEDS: hydrALAZINE HCL 50 MG TABLET 100 MG PO ×2 (08:57→17:46)
[2020-12-31] MEDS: BUMETANIDE 1 MG TABLET 2 MG PO ×2 (08:57→17:45)
[2020-12-31] MEDS: carvediloL 12.5 MG TABLET PO ×2 (08:57→20:43)
[2020-12-31 09:26] LABS: Glucose Point of Care 148 mg/dl (65-105)
[2020-12-31 10:07] LABS: Total Triiodothyronine (T3) 0.79 NG/ML (0.97-1.69)
[2020-12-31] MEDS: INSULIN ASPART (*BKC) 100 UNITS/ML SUB-Q ×2 (11:51→17:46)
[2020-12-31 12:04] LABS: Glucose Point of Care 220 mg/dl (65-105)
--- NOTE | 2020-12-31 13:19 | PM.CNCAR ---
Assessment and Plan Assessment and plan (1) Dizziness: Code(s): R42 - Dizziness and giddiness Status: Acute Assessment and Plan: Unlikely related to his TAVR. Will have him on equipment monitor phototypesetting while in the hospital. will check orthostatic blood pressures. I do think that he needs physical therapy (2) Altered mental status: Qualifiers: Altered mental status type: transient alteration of awareness Qualified Code(s): R40.4 - Transient alteration of awareness Code(s): R41.82 - Altered mental status, unspecified Status: Acute Assessment and Plan: ? Etiology (3) Combined systolic and diastolic congestive heart failure: Code(s): I50.40 - Unspecified combined systolic (congestive) and diastolic (congestive) heart failure Status: Acute Assessment and Plan: continue current meds (4) S/P TAVR (transcatheter aortic valve replacement): Code(s): Z95.2 - Presence of prosthetic heart valve Status: Acute Assessment and Plan: function normally last evaluation (5) PAD (peripheral artery disease): Code(s): I73.9 - Peripheral vascular disease, unspecified Status: Acute Assessment and Plan: No specific cardiac workup indicated at this point except for telemetry and orthostatic blood pressure checks History of Present Illness History of Present Illness Consult date/time: 12/31/20 13:19 Requesting physician: Doc Jensen MD Consult reason: Other ( dizziness) Reason For Visit: Transient AMS/Dizziness/Syncope Narrative: date of service 12/31/2020 Indication: Dizziness ordering provider Dr. Jensen History: Patient is a 85-year-old male who has a history of chronic respiratory failure, aortic stenosis status post TAVR, paroxysmal atrial fibrillation, coronary disease, peripheral disease, hypertension, hyperlipidemia and as well as mixed diastolic and systolic congestive heart failure. He came to the hospital yesterday via EMS because of dizziness. Patient has had some recurrent episodes of dizziness and overall weakness. There is also a thought that he had difficulty standing and week and as well as shaking and there was concern of seizure. His speech was reportedly mumbling at the time. he states that ever since he had his TAVR he has had worsening shakes as well as feeling tired all the time. He has no chest pain or syncope. He does have presyncope at times on random occasions. No paroxysmal nocturnal dyspnea, orthopnea. He has had some lower extremity swelling which is not new or different. Review of Systems Review of Systems: All systems reviewed & are unremarkable except as noted in HPI and below Constitutional: Constitutional: Reports fatigue, Reports lethargy and Reports weakness Eyes: Eyes: Denies blurry vision ENT: Reports Normal hearing present Cardiovascular: Cardiovascular: Denies chest pain and Reports lightheadedness Respiratory: Respiratory: Denies dyspnea Gastrointestinal: Gastrointestinal: Denies abdominal pain and Reports vomiting Genitourinary: Genitourinary: Denies dysuria Musculoskeletal: Musculoskeletal: Denies back pain and Denies neck pain Integumentary/Breasts: Skin/Breast: Denies dry skin Neurologic: Denies headache(s) Psychiatric: Psychiatric: Denies anxiety Endocrine: Endocrine: Denies fatigue Hematologic/Lymphatic: Hematologic/Lymphatic: Denies easy bleeding Allergic/Immunologic: Allergic/Immunologic: Denies GI upset with certain foods PMFSH Past Medical History Medical History Abdominal aortic aneurysm Anemia in chronic kidney disease Aortic valve stenosis, acquired Status post aortic valve replacement. Arthritis Atherosclerosis of [place] coronary artery of [place] heart Chronic anticoagulation Chronic atrial fibrillation, unspecified Chronic kidney disease, stage 4 (severe) Baseline creatinine i
--- NOTE | 2020-12-31 13:59 | PM.IMPN ---
Progress Note: A&P Assessment and Plan (1) Dizziness: Code(s): R42 - Dizziness and giddiness Status: Acute Assessment and Plan: 12/31/20 13:59 patient 85-year-old male with several cardia comorbidities including aortic stenosis and recently patient had a TVAR, patient states since his surgery his more short of breath and requiring oxygen, he feels dizzy with activity and sometime at rest, his symptoms a not related to benign positional vertigo as he does not have any complaint room is moving rather his legs are giving and he feels weak and tired, his last echo and July this is showed moderate systolic dysfunction with ejection fraction of 35-40% and grade 1 diastolic dysfunction, patient had carotid ultrasound and it showed bilateral left and right internal carotid arteries 50-69% stenosis, will consult Cardiology for further recommendation, will have a PT OT evaluate the patient will benefit from acute rehab, will monitor orthostatic and further recommendation to follow. patient is present room, and answered all her questions. (2) Combined systolic and diastolic congestive heart failure: Code(s): I50.40 - Unspecified combined systolic (congestive) and diastolic (congestive) heart failure Status: Acute Assessment and Plan: patient appears euvolemic will monitor (3) CKD (chronic kidney disease), stage IV: Code(s): N18.4 - Chronic kidney disease, stage 4 (severe) Status: Acute Assessment and Plan: patient creatinine is 3.2 and his baseline creatinine is 2.5 patient is being diuresed with Bumex 2 mg b.i.d. practicing down 1 mg b.i.d. and monitor. (4) Anemia in chronic kidney disease: Code(s): N18.9 - Chronic kidney disease, unspecified; D63.1 - Anemia in chronic kidney disease Status: Acute Assessment and Plan: will do iron profile and further recommendation to follow (5) Type 2 diabetes mellitus with diabetic polyneuropathy: Qualifiers: Diabetes mellitus intermediate insulin use: unspecified intermediate insulin use status Qualified Code(s): E11.42 - Type 2 diabetes mellitus with diabetic polyneuropathy Code(s): E11.42 - Type 2 diabetes mellitus with diabetic polyneuropathy Status: Acute Assessment and Plan: will continue home regimen and monitor (6) Chronic respiratory failure with hypoxia, on home oxygen therapy: Code(s): J96.11 - Chronic respiratory failure with hypoxia; Z99.81 - Dependence on supplemental oxygen Status: Acute (7) Chronic anticoagulation: Code(s): Z79.01 - [facility] (current) use of anticoagulants Status: Acute (8) Thrombocytopenia: Code(s): D69.6 - Thrombocytopenia, unspecified Status: Acute Additional Plan The patient presents today with dizziness that he has a difficult time describing is hard to say whether not he is dizzy or if he is experiencing vertigo. His history does not seem consistent with BPPV or CVA as it is transient and not reproducible. His blood pressure was stable and in fact a bit elevated on arrival to the ED and his glucose has not been running low. Given his cardiac history I suppose he could be having some dysrhythmia issues thus he will be monitored on telemetry. He has risk factors for stroke and carotid artery disease thus it may be prudent to obtain a brain MRI and carotid Doppler ultrasounds to rule out pathology there given transient mumbled speech in the emergency department, though that seems less likely. Records requested from Dr. Oliveira's office as he reportedly had an echocardiogram in the last couple of weeks. Blood pressures were reviewed and they have been running a little high. For now will continue his antihypertensives and continue to monitor closely. His anemia and chronic kidney disease are stable on review of previous labs. He has a mild thrombocytopenia which will be monitored. Continue warfarin and monitor INR (1.9 today). Continue gli
[2020-12-31 16:08] LABS: Glucose Point of Care 247 mg/dl (65-105)
[2020-12-31] MEDS: WARFARIN (*PBKC) 2.5 MG TABLET PO (17:45)
[2020-12-31 20:34] LABS: Glucose Point of Care 250 mg/dl (65-105)
[2020-12-31] MEDS: ATORVASTATIN 40 MG TABLET PO (20:43)
[2021-01-01] VITALS (10 sets, daily range): BP systolic 145–153; BP diastolic 42–55; PULSE 57–68; RESP 13–18; TEMP 36.3–36.7; O2SAT 93–98
[2021-01-01] MEDS: HYDROcodone/acetaminophen (*CRX) 10-325 MG TABLET 1 TAB PO (03:58)
[2021-01-01 05:12] LABS: Hematocrit 32.8 % (42.0-52.0); Hemoglobin 9.1 g/dL (14.0-18.0); Mean Corpuscular HGB Conc 27.7 g/dl (32-36); Mean Corpuscular Volume 93.7 fl (80-100); Mean Platelet Volume 12.4 fl (7.4-10.4); Platelet Count Result 105 k/mm3 (150-375); Red Cell Distribution Width 17.2 % (11.5-14.5); White Blood Count 6.2 K/mm3 (4.5-10.0)
[2021-01-01 05:26] LABS: INR 1.6; Prothrombin Time 18.5 Seconds (11.1-14.7)
[2021-01-01 05:27] LABS: Anion Gap 7 mmol/L (8-16); Blood Urea Nitrogen 63 mg/dL (9-20); Calcium 8.6 mg/dL (8.4-10.2); Carbon Dioxide 33 mmol/L (22-30); Chloride 103 mmol/L (98-107); Estimated CRCL calculation 17 ml/min; Estimated Glomerular Filt Rate 20; Glucose 189 mg/dL (75-110); Potassium 3.9 mmol/L (3.4-5.0); Sodium 143 mmol/L (137-145)
[2021-01-01] MEDS: SALMETEROL XINAFOATE 50 MCG DISKUS 1 PUFF INHALATION (08:10)
[2021-01-01 08:31] LABS: Glucose Point of Care 217 mg/dl (65-105)
[2021-01-01] MEDS: GABAPENTIN 300 MG CAPSULE 600 MG PO (09:19)
[2021-01-01] MEDS: TERAZOSIN HCL 1 MG CAPSULE 2 MG PO (09:19)
[2021-01-01] MEDS: ISOSORBIDE MONONITRATE 30 MG TAB.ER.24H PO (09:19)
[2021-01-01] MEDS: hydrALAZINE HCL 50 MG TABLET 100 MG PO (09:20)
[2021-01-01] MEDS: carvediloL 12.5 MG TABLET PO (09:20)
[2021-01-01] MEDS: BUMETANIDE 1 MG TABLET 2 MG PO (09:20)
[2021-01-01] MEDS: INSULIN ASPART (*BKC) 100 UNITS/ML SUB-Q ×2 (09:23→12:00)
--- NOTE | 2021-01-01 10:42 | PM.DS ---
DS: Admitting Diagnosis Admitting Diagnosis Admitting Diagnosis: dizziness DS: Discharge Diagnosis Discharge Diagnosis (1) Dizziness: Code(s): R42 - Dizziness and giddiness Status: Acute Assessment and Plan: 12/31/20 13:59 patient 85-year-old male with several cardia comorbidities including aortic stenosis and recently patient had a TVAR, patient states since his surgery his more short of breath and requiring oxygen, he feels dizzy with activity and sometime at rest, his symptoms a not related to benign positional vertigo as he does not have any complaint room is moving rather his legs are giving and he feels weak and tired, his last echo and July this is showed moderate systolic dysfunction with ejection fraction of 35-40% and grade 1 diastolic dysfunction, patient had carotid ultrasound and it showed bilateral left and right internal carotid arteries 50-69% stenosis, will consult Cardiology for further recommendation, will have a PT OT evaluate the patient will benefit from acute rehab, will monitor orthostatic and further recommendation to follow. patient is present room, and answered all her questions. (2) Combined systolic and diastolic congestive heart failure: Code(s): I50.40 - Unspecified combined systolic (congestive) and diastolic (congestive) heart failure Status: Acute Assessment and Plan: patient appears euvolemic will monitor (3) CKD (chronic kidney disease), stage IV: Code(s): N18.4 - Chronic kidney disease, stage 4 (severe) Status: Acute Assessment and Plan: patient creatinine is 3.2 and his baseline creatinine is 2.5 patient is being diuresed with Bumex 2 mg b.i.d. practicing down 1 mg b.i.d. and monitor. 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: unspecified skilled nursing insulin use status Qualified Code(s): E11.42 - Type 2 diabetes mellitus with diabetic polyneuropathy Code(s): E11.42 - Type 2 diabetes mellitus with diabetic polyneuropathy Status: Acute Assessment and Plan: will continue home regimen and monitor (6) Chronic respiratory failure with hypoxia, on home oxygen therapy: Code(s): J96.11 - Chronic respiratory failure with hypoxia; Z99.81 - Dependence on supplemental oxygen Status: Acute (7) Chronic anticoagulation: Code(s): Z79.01 - intermediate (current) use of anticoagulants Status: Acute (8) Thrombocytopenia: Code(s): D69.6 - Thrombocytopenia, unspecified Status: Acute DS: Summary Hospital Course Reason for hospitalization: Chief Complaint: Dizziness. Narrative: This is an 85-year-old male with chronic respiratory failure on 2 L nasal cannula, aortic stenosis status post aortic valve replacement, paroxysmal atrial fibrillation, coronary artery disease, peripheral arterial disease, hypertension, dyslipidemia, and mixed systolic and diastolic congestive heart failure who presented to the emergency department today via EMS from home for evaluation of dizziness. It is difficult for him to describe accurately what he has been feeling and at times he tells me he has been feeling lightheaded as though he may pass out and other times he reports feeling like he is rocking or falling, even when sitting down. He has had 3 such episodes in the last 12 hours or so. Last evening he felt lightheaded when ambulating to the living room and that past within a few seconds after sitting down. The symptoms returned when he stood up last night but that resolved quite quickly as well. This morning he had a good morning, took the dog outside, had his breakfast and coffee, got ready for the day
--- NOTE | 2021-01-01 11:09 | PM.PNCARD ---
Progress Note: A&P Assessment and Plan (1) Dizziness: Code(s): R42 - Dizziness and giddiness Status: Acute Assessment and Plan: Unlikely related to his TAVR. 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 No thelma or tachy arrhythmias noted on telemetry that would explain dizziness. He is denying any dizziness today. (2) Altered mental status: Qualifiers: Altered mental status type: transient alteration of awareness Qualified Code(s): R40.4 - Transient alteration of awareness Code(s): R41.82 - Altered mental status, unspecified Status: Acute Assessment and Plan: ? Etiology (3) Combined systolic and diastolic congestive heart failure: Code(s): I50.40 - Unspecified combined systolic (congestive) and diastolic (congestive) heart failure Status: Acute Assessment and Plan: continue current meds (4) S/P TAVR (transcatheter aortic valve replacement): Code(s): Z95.2 - Presence of prosthetic heart valve Status: Acute Assessment and Plan: function normally last evaluation (5) PAD (peripheral artery disease): Code(s): I73.9 - Peripheral vascular disease, unspecified Status: Acute Subjective Date/time seen: 01/01/21 11:09 Cardiology follow up for dizziness Date of service 01/01/2021: Patient is feeling well today. He is sitting up in the chair. He denies any complaints. No shortness of breath, no dizziness. Plan is for him to be discharged home today. Review of Systems Review of Systems: All systems reviewed & are unremarkable except as noted in HPI and below Constitutional: Constitutional: Denies fatigue, Denies headache(s), Reports lethargy and Reports weakness Eyes: Eyes: Denies blurry vision ENT: Reports Normal hearing present, Denies headache(s) and Denies neck pain Cardiovascular: Cardiovascular: Denies chest pain, Reports lightheadedness and Denies dyspnea Respiratory: Respiratory: Denies dyspnea Gastrointestinal: Gastrointestinal: Denies abdominal pain and Reports vomiting Genitourinary: Genitourinary: Denies dysuria Musculoskeletal: Musculoskeletal: Denies back pain and Denies neck pain Integumentary/Breasts: Skin/Breast: Denies dry skin Neurologic: Reports Normal hearing present, Denies headache(s) and Reports weakness Psychiatric: Psychiatric: Denies anxiety Endocrine: Endocrine: Denies fatigue Hematologic/Lymphatic: Hematologic/Lymphatic: Denies easy bleeding Allergic/Immunologic: Allergic/Immunologic: Denies GI upset with certain foods Exam Narrative: Exam Narrative: Pleasant elderly gentleman sitting in the chair. Alert and oriented. Const: General: comfortable and no acute distress HENMT: General nose exam: Normal nares present Eyes: Sclera: sclerae normal Neck: Neck: no JVD Carotids: bruit Resp: Auscultation: clear to auscultation bilaterally Cardio: Rate: regular rate Rhythm: regular rhythm GI: Auscultation: normal bowel sounds Skin: General skin exam: normal color and rashes and/or lesions noted Neuro: Cranial nerves: Yes Normal hearing present Cognition (Neuro): normal cognition Speech: normal speech Extrem: General: normal to inspection and no edema Psych: Mental Status: mental status grossly normal Objective Data Vital Signs Vital Signs: Vital Signs - 24 hr 12/31/20 12:00 12/31/20 13:36 12/31/20 16:00 Temperature 36.8 C 36.9 C Pulse Rate 78 70 61 Respiratory Rate 12 12 Blood Pressure 119/52 L 129/50 L Pulse Oximetry 96 92 12/31/20 17:48 12/31/20 20:00 12/31/20 20:43 Temperature 36.6 C Pulse Rate 66 65 86 Respiratory Rate 14 Blood Pressure 149/60 H Pulse Oximetry 92 12/31/20 22:00 01/01/21 00:00 01/01/21 02:00 Temperature 36.7 C Pulse Rate 88 61 64 Respiratory Rate 13 Blood Pressure 147/42 H Pulse Oximetry 96 01/01/21 04:00 01/01/21 06:00 01/01/21 08:00 Temperature 36.6 C 36.5 C Pulse
--- NOTE | 2021-01-01 11:44 | PC.NURSE ---
Patient discharged to home today. Education was provided on home meds and need for follow-up appointments. Patient had no further questions at this time.
[2021-01-01 11:52] LABS: Glucose Point of Care 328 mg/dl (65-105)
== END 2021-01-01 12:27 | disposition home or self-care (01) ==
LOC: ANHED 14:34 → ANHIMU 17:48
PROVIDERS: Internal Medicine; Physician Assistant; Admitting Provider Internal Medicine; Emergency Provider Emergency Medicine; PCP Internal Medicine; Visit Provider Family Medicine
DX: R41.82 Altered mental status, unspecified (principal); R42 Dizziness and giddiness; I13.0 Hypertensive heart and chronic kidney disease with heart failure and stage 1 through stage 4 chronic kidney disease, or unspecified chronic kidney disease; I50.40 Unspecified combined systolic (congestive) and diastolic (congestive) heart failure; N18.4 Chronic kidney disease, stage 4 (severe); J96.11 Chronic respiratory failure with hypoxia; D63.1 Anemia in chronic kidney disease; D69.6 Thrombocytopenia, unspecified; E11.42 Type 2 diabetes mellitus with diabetic polyneuropathy; E78.5 Hyperlipidemia, unspecified; E11.22 Type 2 diabetes mellitus with diabetic chronic kidney disease; E11.51 Type 2 diabetes mellitus with diabetic peripheral angiopathy without gangrene; I35.0 Nonrheumatic aortic (valve) stenosis; I48.0 Paroxysmal atrial fibrillation; I25.10 Atherosclerotic heart disease of native coronary artery without angina pectoris; Z95.4 Presence of other heart-valve replacement; Z87.891 Personal history of nicotine dependence; Z99.81 Dependence on supplemental oxygen; Z79.01 Long term (current) use of anticoagulants; Z79.4 Long term (current) use of insulin
CPT/HCPCS: 36415; 70450; 71046; 80048; 81001; 82607; 82746; 82948; 83036; 83735; 84439; 84443; 84480; 84484; 85025; 85027; 85055; 85610; 85730; 93005; 93880; 94640; 96374; 97110; 97162; 97530; 99285; A9270; G0378; J1815; J2405

== ENCOUNTER 2021-01-15 08:57 | Outpatient (CLI) | payer MEDICARE, SELFPAY ==
--- NOTE | ~2021-01-15 | CT_ITS ---
EXAMINATION: CT diagnostic chest wo con EXAM DATE: 01/15/2021 09:23 INDICATION: RLL hypodensity nodule, abnormal chest x-ray. TECHNIQUE: Spiral CT of the chest without contrast. Axial, coronal and sagittal images of the chest were reviewed. Coronal maximum intensity pixel images of chest reviewed. The dose-length product ( DLP) for this examination was 296.48 mGy-cm. The exposure was tailored according to patient size (au to mA exposure control), and iterative reconstruction (ASIR) was used as additional dose reduction [place]. Comparison is made to prior examination from 04/24/2020. FINDINGS: There is a new 7 mm nodule right lower lobe above the diaphragm image 100, indeterminate. M oderate chronic emphysema. There is right lower lobe peripheral region with central necrosis, measuri ng about 1.4 x 2.4 cm, stable or slightly decreased in size, most likely postinfectious. There is rig ht lower lobe granuloma. Trace left pleural effusion. Resolution of previously seen small right pleur al effusion. Tracheobronchial tree is patent. There is no mediastinal, hilar or axillary lymphaden opathy. There is no pneumothorax. Heart normal in size. Possible coronary artery stents. Low-density liver lesions consistent with cysts. Multiple renal les ions bilaterally, likely cysts and hemorrhagic cysts but some are indeterminate. This could be evalua dora with pre and postcontrast CT exam along with the incompletely imaged lower abdominal aortic aneur ysm, may measure at least 5 cm. There is thoracic spondylosis without osteoblastic or osteolytic les ions identified. IMPRESSION: 1. New indeterminate right lower lobe nodule; recommend 6 month follow-up chest CT. 2. Incidental mid abdominal aortic aneurysm; recommend abdomen pelvis without and with contrast. 3. Renal lesions, some are indeterminate but statistically most likely cysts. 4. Right lower lobe opacity, stable or slight decrease in size most likely postinfectious. 5. Moderate emphysema. Reviewed, dictated and finalized at location B. IMPRESSION: 1. New indeterminate right lower lobe nodule; recommend 6 month follow-up ches t CT. 2. Incidental mid abdominal aortic aneurysm; recommend abdomen pelvis without and with contrast. 3. Renal lesions, some are indeterminate but statistically most likely cysts. 4. Right lower lobe opacity, stable or slight decrease in size most likely pos tinfectious. 5. Moderate emphysema.
[2021-01-15 09:52] LABS: Hematocrit 35.5 % (42.0-52.0); Hemoglobin 10.1 g/dL (14.0-18.0); Mean Corpuscular HGB Conc 28.5 g/dl (32-36); Mean Corpuscular Hemoglobin 26.7 pg (26-34); Mean Corpuscular Volume 93.9 fl (80-100); Mean Platelet Volume 12.3 fl (7.4-10.4); Platelet Count Result 94 k/mm3 (150-375); Red Blood Count 3.78 M/mm3 (4.6-6.20); Red Cell Distribution Width 17.6 % (11.5-14.5)
[2021-01-15 09:58] LABS: Albumin Level 3.7 g/dL (3.5-5.1); Anion Gap 9 mmol/L (8-16); Blood Urea Nitrogen 43 mg/dL (9-20); Calcium 8.8 mg/dL (8.4-10.2); Carbon Dioxide 26 mmol/L (22-30); Chloride 109 mmol/L (98-107); Estimated Glomerular Filt Rate 22; Glucose 180 mg/dL (65-110); Phosphorus 3.5 mg/dL (2.5-4.5); Potassium 4.3 mmol/L (3.4-5.0); Sodium 144 mmol/L (137-145)
[2021-01-15 10:10] LABS: Parathyroid Intact 328.7 pg/mL (7.5-53.5)
[2021-01-15 12:25] LABS: Eosinophil Urine None Seen % (None Seen)
[2021-01-15 14:03] LABS: Creatinine Urine 32.3 mg/dL; Total Protein Urine Random 15 mg/dL; Ur Ttl Prot Creatinine Ratio 0.46 mg/mg (0-0.20)
[2021-01-15 14:08] LABS: Sodium Urine Random 92 meq/L
== END 2021-01-15 08:58 | disposition home or self-care (01) ==
PROVIDERS: PCP Internal Medicine; Visit Provider Internal Medicine Critical Care Medicine
DX: R93.89 Abnormal findings on diagnostic imaging of other specified body structures (principal); R91.1 Solitary pulmonary nodule; I71.4 Abdominal aortic aneurysm, without rupture; N28.9 Disorder of kidney and ureter, unspecified; J43.9 Emphysema, unspecified
CPT/HCPCS: 36415; 71250; 80069; 82570; 83970; 84156; 84300; 85027; 85999

== ENCOUNTER 2021-02-16 12:38 | Outpatient (CLI) | payer MEDICARE, SELFPAY | END 2021-02-16 12:39 | disposition home or self-care (01) | LOC: ANHAUDIO 12:40 | PROVIDERS: PCP Internal Medicine; Visit Provider Otolaryngology | DX: R42 Dizziness and giddiness (principal); H90.3 Sensorineural hearing loss, bilateral | CPT/HCPCS: 92557; 92567 ==

== ENCOUNTER 2021-02-17 00:33 | Observation (INO) | payer MEDICARE, SELFPAY ==
[2021-02-17] VITALS (29 sets, daily range): BP systolic 118–154; BP diastolic 36–91; PULSE 53–124; RESP 12–22; TEMP 36.1–36.6; O2SAT 92–97; BMI 31.9
--- NOTE | ~2021-02-17 | XR_ITS ---
EXAMINATION: XR chest 2V DATE: 02/17/2021 01:08 INDICATION: Sternal chest pain TECHNIQUE: PA and lateral views of the chest were obtained. COMPARISON: Chest radiograph dated 12/30/[address] dated 01/15/2021 FINDINGS: Hyperexpansion of lungs with flattening of the diaphragm and increased lucency and architectural dist ortion in the upper lung zones consistent with emphysema better appreciated on prior CT. Calcified no dule at the posterior right lower lobe consistent with old granulomatous disease. Mild increased inte rstitial pattern at the lung bases with a few peripheral Ally B-lines at the lateral right lung bas e consistent with minimal pulmonary edema. Blunting at the right posterior sulcus consistent with tin y right pleural effusion. No pneumothorax. Cardiomegaly. Aortic valve repair. Multiple surgical clips in the right infraclavicular region. Mild to moderate thoracic spondylosis. IMPRESSION: 1. Likely mild congestive heart failure with cardiomegaly, minimal pulmonary edema at the lung bases and tiny right pleural effusion 2. Emphysema. Reviewed, dictated and finalized at location A. IMPRESSION: 1. Likely mild congestive heart failure with cardiomegaly, minimal pulmonary ed lyndsey at the lung bases and tiny right pleural effusion 2. Emphysema.
--- NOTE | 2021-02-17 00:40 | ECG_ITS ---
Measurements Intervals [place] Rate: 120 P: SD: 0 QRS: -51 QRSD: 157 T: 107 QT: 377 QTc: 534 Interpretive Statements ATRIAL FIBRILLATION WITH RAPID VENTRICULAR RESPONSE VENTRICULAR PREMATURE COMPLEX LEFT AXIS DEVIATION LEFT BUNDLE BRANCH BLOCK BASELINE ARTIFACT- I, II, III, AVR, AVL, AVF ABNORMAL ECG Electronically Signed On 02-17-2021 7:01:58 CDT by Petar Dunaway D.O.
[2021-02-17 01:03] LABS: INR 1.6
[2021-02-17 01:04] LABS: Partial Thromboplastin Time 32.7 SECONDS (22.3-36.8)
[2021-02-17 01:09] LABS: Basophils Percent Auto 0.3 % (0.2-1.2); Eosinophils Absolute Auto 0.2 K/mm3 (0-0.3); Eosinophils Percent Auto 3.1 % (0-4.4); Hematocrit 35.2 % (42.0-52.0); Hemoglobin 10.4 g/dL (14.0-18.0); Immature Granulocyte Absolute 0.02 K/mm3 (0.00-0.031); Immature Granulocyte Percent A 0.3 % (0-0.5); Lymphocytes Percent Auto 17.1 % (18.3-44.2); Mean Corpuscular HGB Conc 29.5 g/dl (32-36); Mean Corpuscular Hemoglobin 27.2 pg (26-34); Mean Corpuscular Volume 92.1 fl (80-100); Mean Platelet Volume 13.3 fl (7.4-10.4); Monocytes Absolute Auto 0.7 K/mm3 (0.1-0.6); Monocytes Percent Auto 11.3 % (2.6-8.5); Neutrophils Percent Auto 67.9 % (45.5-73.1); Platelet Count Result 129 k/mm3 (150-375); Red Blood Count 3.82 M/mm3 (4.6-6.20); Red Cell Distribution Width 17.7 % (11.5-14.5); White Blood Count 5.9 K/mm3 (4.5-10.0)
[2021-02-17 01:10] LABS: Hypochromasia 1+ (NORMAL)
--- NOTE | 2021-02-17 01:24 | ED.CHESTPAIN ---
HPI - Chest Pain General Chief Complaint: Chest Pain Stated Complaint: cp Time Seen by Provider: 02/17/21 01:18 Source: RN notes reviewed History of Present Illness HPI narrative: Patient presents emergency department from home for atrial fibrillation. Patient states he was at home this evening and felt like he went into atrial fibrillation he states he has a history of intermittent atrial fibrillation and knows the feeling when he goes into a states at that time began to experience chest pain in his midsternal chest and went to his bilateral shoulder blades. Patient states that he has been taking all his medications as prescribed and is followed by Dr. Oliveira. He states he was on Coumadin for anticoagulation patient states chest pain has improved since initially started but still is having some midsternal chest pain he states mild shortness of breath with the symptoms and states he is chronically on 2 L nasal cannula at all times denies any fevers or chills abdominal pain or any other symptoms Related Data Home Medications Medication Instructions Recorded Confirmed atorvastatin 40 mg PO HS 04/22/19 01/18/21 gabapentin 600 mg PO DAILY 08/01/20 01/18/21 hydralazine 100 mg tablet 100 mg PO BID tablet 10/05/20 01/18/21 bumetanide 2 mg PO BID 11/11/20 01/18/21 carvedilol 12.5 mg PO BID 11/11/20 01/18/21 warfarin 3 mg tablet 2.5 mg PO DAILY 11/14/20 01/18/21 terazosin 2 mg PO DAILY 12/30/20 01/18/21 Allergies Allergy/AdvReac Type Severity Reaction Status Date / Time prednisolone Allergy Severe Loss of Verified 01/17/21 13:56 Consciousness prednisone Allergy Severe Loss of Verified 01/17/21 13:56 Consciousness adhesive tape Allergy Mild Rash Verified 01/17/21 13:56 atorvastatin Allergy Unknown Muscle Pain Verified 01/17/21 13:56 flecainide Allergy Unknown FEET Verified 01/17/21 13:56 NUMBNESS Review of Systems Review of Systems: Gen.: Denies fevers or chills ENT: Denies congestion Respiratory: Denies shortness of breath or cough CV: See HPI GI: Denies abdominal pain nausea, emesis or diarrhea Musculoskeletal: Denies back pain or muscle pain Neuro: Denies numbness, tingling, weakness or focal weakness Skin: Denies rash Except as documented, all other systems reviewed and negative [facility] Past Medical History Medical History Abdominal aortic aneurysm Anemia in chronic kidney disease Aortic valve stenosis, acquired Status post aortic valve replacement. Arthritis Atherosclerosis of [place] coronary artery of [place] heart Chronic anticoagulation Chronic atrial fibrillation, unspecified Chronic kidney disease, stage 4 (severe) Baseline creatinine is around 2.90. 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 Could not exclude a laminated thrombus. Diabetic peripheral neuropathy Dyslipidemia Gout Hypertension, essential Nephrolithiasis Peripheral vascular disease of lower extremity Type 2 diabetes mellitus Ulcerative colitis Surgical History Surgical History History of aortic valve replacement with bioprosthetic valve (04/2020) Per Dr. Michael at [facility]. History of cardiac catheterization History of cataract extraction History of colonoscopy with polypectomy History of partial colectomy History of umbilical hernia repair History of vascular surgery Multiple lower extremity stents and femoral popliteal bypass. Family History Family History Sibling Patient's sister is in good health Father Family history of malignant neoplasm of bone Family history of malignant neoplasm Patient's father is , Onset Age: 60 Met
[2021-02-17] MEDS: dilTIAZem HCl INJ 25 MG/5 ML VIAL 5 MG IV PUSH (01:37)
[2021-02-17 02:14] LABS: Anion Gap 8 mmol/L (8-16); Blood Urea Nitrogen 47 mg/dL (9-20); Calcium 8.2 mg/dL (8.4-10.2); Carbon Dioxide 25 mmol/L (22-30); Chloride 110 mmol/L (98-107); Estimated CRCL calculation 21 ml/min; Estimated Glomerular Filt Rate 23; Glucose 242 mg/dL (65-110); Potassium 3.8 mmol/L (3.4-5.0); Sodium 143 mmol/L (137-145)
[2021-02-17 02:32] LABS: Troponin I 0.038 ng/mL (0.000-0.034)
[2021-02-17] MEDS: ENOXAPARIN 100 MG/ML SYRINGE 92 MG SUB-Q (03:41)
--- NOTE | 2021-02-17 04:45 | ADMGEN ---
This patient, Cipriano Garcia, was admitted to IMU Room 206-02. Patient/family oriented to hospital policies and general routines including ID bracelet, bed and alarms, visiting hours, pain management, procedures, bathroom and other care routines, personal items, smoking policy, room service/diet, and visiting hours. Information on how to activate the Rapid Response Team has been discussed. Patient/Family are encouraged to report perceived risks to care and to ask questions if they do not understand what they are told or what they should do.
[2021-02-17 06:09] LABS: Troponin I 0.052 ng/mL (0.000-0.034)
--- NOTE | 2021-02-17 07:40 | ECG_ITS ---
Measurements Intervals [place] Rate: 63 P: 67 [place]: 139 QRS: -50 QRSD: 158 T: 121 QT: 501 QTc: 516 Interpretive Statements SINUS RHYTHM ATRIAL AND VENTRICULAR PREMATURE COMPLEXES LEFT AXIS DEVIATION LEFT BUNDLE BRANCH BLOCK ABNORMAL ECG Electronically Signed On 02-17-2021 9:38:32 CDT by Petar Dunaway D.O.
[2021-02-17 08:23] LABS: Troponin I 0.057 ng/mL (0.000-0.034)
--- NOTE | 2021-02-17 09:20 | PM.IMHP ---
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 Patient states at approximately 11:00 p.m. last night when he went to lay down he suddenly felt his heart beating irregularly. This feeling is well known to him he has a long history of atrial fibrillation and therefore he called 911 after about 30 minutes when the symptoms did not resolve. He denies any fever chills cough shortness of breath or other symptoms except for chronic joint pains during ROS. Chief Complaint: palpitations Review of Systems Review of Systems: All systems reviewed & are unremarkable except as noted in HPI and below PMFSH Past Medical History Medical History Abdominal aortic aneurysm Anemia in chronic kidney disease Aortic valve stenosis, acquired Status post aortic valve replacement. Arthritis Atherosclerosis of [place] coronary artery of [place] heart Chronic anticoagulation Chronic atrial fibrillation, unspecified Chronic kidney disease, stage 4 (severe) Baseline creatinine is around 2.90. 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 Could not exclude a laminated thrombus. Diabetic peripheral neuropathy Dyslipidemia Gout Hypertension, essential Nephrolithiasis Peripheral vascular disease of lower extremity Type 2 diabetes mellitus Ulcerative colitis Surgical History Surgical History History of aortic valve replacement with bioprosthetic valve (04/2020) Per Dr. Michael at [facility]. History of cardiac catheterization History of cataract extraction History of colonoscopy with polypectomy History of partial colectomy History of umbilical hernia repair History of vascular surgery Multiple lower extremity stents and femoral popliteal bypass. Family History Family History Sibling Patient's sister is in good health Father Family history of malignant neoplasm of bone Family history of malignant neoplasm Patient's father is , Onset Age: 60 Metastatic bone cancer Mother Family history of malignant neoplasm Family history of coronary artery disease STEMI (ST elevation myocardial infarction) Hypertension Mother No problems noted. Other Family history of arthritis Social History Social History Social History: Surrogate decision maker: Kristi Garcia, . Code status: Full code. Smoking packs per day: 1.5 Smoking cigarettes per day: 30.0 Years smoked: 37 Smoking pack-years: 55.50 Smoking status: Former smoker Tobacco type: cigarettes Second hand tobacco smoke exposure: No Smoking end date: 06/23/88 Alcohol intake: former Substance use: never Additional living arrangements comments: Resides with his in [place]. Additional occupation/education comments: Retired. Gender identity (if verbalized by the patient): Male Spiritual care concerns: No Meds Home Medications and Allergies Home Medications Medication Instructions Recorded Confirmed Type atorvastatin 40 mg PO HS 04/22/19 02/17/21 History gabapentin 600 mg PO DAILY 08/01/20 02/17/21 History isosorbide mononitrate 30 mg PO QAM #30 tablet 08/07/20 02/17/21 Rx
[2021-02-17] MEDS: BUMETANIDE 1 MG TABLET 2 MG PO ×2 (10:53→17:27)
[2021-02-17] MEDS: TERAZOSIN HCL 1 MG CAPSULE 2 MG PO (10:53)
[2021-02-17] MEDS: ISOSORBIDE MONONITRATE 30 MG TAB.ER.24H PO (10:54)
[2021-02-17] MEDS: GABAPENTIN 300 MG CAPSULE 600 MG PO (10:54)
[2021-02-17] MEDS: hydrALAZINE HCL 50 MG TABLET 100 MG PO ×2 (10:54→17:26)
[2021-02-17] MEDS: carvediloL 12.5 MG TABLET PO ×2 (10:54→20:22)
[2021-02-17] MEDS: HYDROcodone/acetaminophen (*CRX) 10-325 MG TABLET 1 TAB PO ×2 (11:03→20:28)
--- NOTE | 2021-02-17 12:00 | PM.CNCAR ---
Assessment and Plan Additional Plan This is an 85-year-old man with complex history of coronary heart disease, peripheral vascular disease, aortic valve disease status post TAVR less than a year ago and history of atrial fibrillation. He is admitted now with a symptomatic recurrence of his AFib with RVR. It looks like his antiarrhythmic agent was stopped about 5 months ago and so after this has washed out he has recurred to symptomatic, problematic AFib. It it is unlikely that any antiarrhythmic agent other than amiodarone will be effective given the underlying substrate we are dealing with here and since I do not think there was any definitive evidence that he had amiodarone lung toxicity I am going to resume amiodarone at a loading dose of 800 mg per day at this time. The patient will be observed in the hospital and I would keep him here least a couple of days to ensure that he does not go back into atrial fib in the short term. Follow-up in the office with Dr. Oliveira is already scheduled and we will ensure that that occurs in a timely fashion after this discharge. Geoff Ledezma MD [facility] History of Present Illness History of Present Illness Consult date/time: 02/17/21 12:00 Consult reason: atrial fibrillation Reason For Visit: afib with rvr Narrative: This is a very pleasant 85-year-old man with a very complex cardiac history who is admitted to the hospital late last night through the emergency room because of the symptomatic recurrence of atrial fibrillation with rapid ventricular response. He states he was in his usual state of health which is somewhat frail at home when he went to bed last night and shortly after started to notice chest pain he states he was not really aware of the sense of tachy palpitations but he was having some heaviness in the substernal region radiating into the shoulders. For that reason he was taken to the emergency room for evaluation. He that was found there to be in AFib with RVR. He was of course treated with intravenous diltiazem which did slow his heart rate down into the 90s after that he became asymptomatic. He then was admitted to the hospital for further evaluation and management. Overnight he appears to have spontaneously converted to sinus rhythm and feels well this morning other than feeling generally tired. This is a patient who is well known to Dr. Oliveira of our group who follows him for his coronary disease valvular heart disease LV dysfunction and atrial fib. Following admission troponin levels are modestly elevated but they are flat. Patient is known to have coronary artery disease with previous interventional revascularization that I will not detail in the note. 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 According to the notes that are in the chart he does have mild left ventricular systolic dysfunction. He is also known to have developed significant aortic valve stenosis and in April of last year was treated at [facility] by Dr. Salas with transcatheter aortic valve replacement. The patient's procedure was technically successful and I and uncomplicated but the patient reports that he was frustrated that since his valve procedure he has more shortness of breath and requires a 24 hour home oxygen that he did not require prior to the procedure. He has a history of atrial fibrillation which was managed for a number of years with amiodarone treatment. In August of this year a when he was in the hospital here with decompensated heart failure it looks like the decision was made to stop his amiodarone because the thought was he might have developed amiodarone lung toxicity although I do not know that was specifically demonstrated. He does see pulmonology toy consultant here regarding a chronic right middle lobe masslike lesion that appears to be stable. The patient expresses frustration that he does not
[2021-02-17 13:19] LABS: Glucose Point of Care 157 mg/dl (65-105)
[2021-02-17] MEDS: AMIODARONE HCL 200 MG TABLET 400 MG PO ×2 (13:34→20:23)
[2021-02-17] MEDS: INSULIN ASPART (*BKC) 100 UNITS/ML SUB-Q (17:25)
[2021-02-17 17:26] LABS: Glucose Point of Care 240 mg/dl (65-105)
[2021-02-17] MEDS: WARFARIN (*PBKC) 3 MG TABLET PO (17:27)
[2021-02-17 20:08] LABS: Glucose Point of Care 197 mg/dl (65-105)
[2021-02-17] MEDS: ATORVASTATIN 40 MG TABLET PO (20:22)
[2021-02-17] MEDS: BUDESONIDE RESPULE NEB 0.5 MG/2 ML AMP INHALATION (21:01)
[2021-02-18] VITALS (16 sets, daily range): BP systolic 125–183; BP diastolic 37–64; PULSE 49–89; RESP 18–20; TEMP 36.1–36.6; O2SAT 92–98
[2021-02-18 05:13] LABS: Prothrombin Time 21.9 Seconds (11.1-14.7)
[2021-02-18 05:15] LABS: Anion Gap 7 mmol/L (8-16); Blood Urea Nitrogen 47 mg/dL (9-20); Calcium 8.3 mg/dL (8.4-10.2); Carbon Dioxide 23 mmol/L (22-30); Chloride 114 mmol/L (98-107); Estimated CRCL calculation 21 ml/min; Estimated Glomerular Filt Rate 23; Glucose 133 mg/dL (65-110); Sodium 144 mmol/L (137-145)
[2021-02-18 05:21] LABS: Basophils Percent Auto 0.6 % (0.2-1.2); Eosinophils Absolute Auto 0.3 K/mm3 (0-0.3); Eosinophils Percent Auto 3.9 % (0-4.4); Hematocrit 33.9 % (42.0-52.0); Hemoglobin 9.5 g/dL (14.0-18.0); Immature Granulocyte Absolute 0.03 K/mm3 (0.00-0.031); Immature Granulocyte Percent A 0.5 % (0-0.5); Lymphocytes Absolute Auto 0.86 K/mm3 (0.9-3.2); Lymphocytes Percent Auto 13.5 % (18.3-44.2); Mean Corpuscular Hemoglobin 26.1 pg (26-34); Mean Corpuscular Volume 93.1 fl (80-100); Mean Platelet Volume 12.7 fl (7.4-10.4); Monocytes Absolute Auto 0.7 K/mm3 (0.1-0.6); Monocytes Percent Auto 11.3 % (2.6-8.5); Neutrophils Absolute Auto 4.5 K/mm3 (1.3-6.7); Neutrophils Percent Auto 70.2 % (45.5-73.1); Platelet Count Result 120 k/mm3 (150-375); Red Blood Count 3.64 M/mm3 (4.6-6.20); Red Cell Distribution Width 17.2 % (11.5-14.5); White Blood Count 6.4 K/mm3 (4.5-10.0)
[2021-02-18 06:05] LABS: Hypochromasia 2+ (NORMAL); Platelet Estimate Decreased (Adequate)
[2021-02-18] MEDS: ENOXAPARIN 100 MG/ML SYRINGE 95 MG SUB-Q (06:20)
[2021-02-18] MEDS: carvediloL 12.5 MG TABLET PO (08:10)
[2021-02-18] MEDS: GABAPENTIN 300 MG CAPSULE 600 MG PO (08:10)
[2021-02-18] MEDS: BUMETANIDE 1 MG TABLET 2 MG PO (08:11)
[2021-02-18] MEDS: AMIODARONE HCL 200 MG TABLET 400 MG PO (08:11)
[2021-02-18 08:39] LABS: Glucose Point of Care 145 mg/dl (65-105)
[2021-02-18] MEDS: BUDESONIDE RESPULE NEB 0.5 MG/2 ML AMP INHALATION (09:26)
[2021-02-18] MEDS: hydrALAZINE HCL 50 MG TABLET 100 MG PO (10:14)
[2021-02-18] MEDS: ISOSORBIDE MONONITRATE 30 MG TAB.ER.24H PO (10:15)
[2021-02-18] MEDS: TERAZOSIN HCL 1 MG CAPSULE 2 MG PO (10:15)
[2021-02-18] MEDS: HYDROcodone/acetaminophen (*CRX) 10-325 MG TABLET 1 TAB PO (10:17)
--- NOTE | 2021-02-18 11:19 | PM.PNCARD ---
Progress Note: A&P Additional Plan 85-year-old man with: Background of ischemic heart disease valvular heart disease at a admitted with a symptomatic recurrence of atrial fibrillation. Decision was made to resume treatment with amiodarone which was stopped earlier in the year. Obviously he poorly tolerates a the atrial fibrillation and resuming amiodarone in my opinion was the most reasonable option at this time. There was no direct evidence in the record that he was found to have amiodarone lung toxicity. From my perspective he can be discharged today. If he is discharged I would lower his amiodarone dosage to 400 mg daily. He does have a short interval follow-up already scheduled in our office with my partner Dr. Oliveira and he would like to be discharged today. Geoff Ledezma MD [facility] Subjective Date/time seen: Date of service: 02/18/21 11:19 Interval history: Follow-up visit in this 85-year-old man with: Coronary artery disease valvular heart disease, previous TAVR and paroxysmal atrial fibrillation. patient also has ischemic LV systolic dysfunction and significant chronic kidney disease. He was hospitalized with symptomatic recurrent atrial fibrillation. Today the patient is asymptomatic and feels well he is back in sinus rhythm. Amiodarone has been restarted. Spoke to the patient at some length today about the slow half-life of amiodarone in the fact that it will take a month or 2 for reasonable tissue levels to be reestablished. During that period of time recurrences of atrial fibrillation are not unexpected. He feels well and he was hoping to be discharged today. Exam Const: General: comfortable and no acute distress HENMT: Mouth: Yes moist mucous membranes Eyes: Sclera: sclerae normal Pupils: Equal, round and reactive pupils present Neck: Neck: supple and no JVD Resp: Effort & Inspection: normal respiratory effort Auscultation: clear to auscultation bilaterally Cardio: Rate: regular rate Rhythm: regular rhythm Other: PMI is enlarged no murmur no gallop GI: GI Palp: Yes Soft to palpation Auscultation: normal bowel sounds Skin: General skin exam: normal color Neuro: Cognition (Neuro): normal cognition Extrem: General: normal to inspection Objective Data Vital Signs Vital Signs: Vital Signs - 24 hr 02/17/21 12:00 02/17/21 13:34 02/17/21 14:00 Temperature 36.1 C L Pulse Rate 60 58 L 53 L Respiratory Rate 22 H Blood Pressure 150/55 H Pulse Oximetry 95 02/17/21 16:00 02/17/21 18:00 02/17/21 19:18 Temperature 36.2 C L 36.2 C L Pulse Rate 60 57 L 63 Respiratory Rate 22 H 18 Blood Pressure 151/43 H 154/40 H Pulse Oximetry 94 93 02/17/21 20:00 02/17/21 20:22 02/17/21 20:23 Temperature Pulse Rate 65 62 62 Respiratory Rate Blood Pressure Pulse Oximetry 93 02/17/21 21:02 02/17/21 21:07 02/17/21 21:09 Temperature Pulse Rate 74 76 Respiratory Rate 20 20 Blood Pressure Pulse Oximetry 94 02/17/21 22:00 02/18/21 00:00 02/18/21 02:00 Temperature 36.4 C Pulse Rate 56 L 61 63 Respiratory Rate 18 Blood Pressure 125/37 L Pulse Oximetry 93 02/18/21 04:00 02/18/21 06:00 02/18/21 07:43 Temperature 36.1 C L 36.4 C Pulse Rate 49 L 67 64 Respiratory Rate 18 18 Blood Pressure 147/49 H 147/37 H Pulse Oximetry 92 93 02/18/21 07:48 02/18/21 08:10 02/18/21 08:11 Temperature Pulse Rate 66 63 Respiratory Rate Blood Pressure Pulse Oximetry 93 02/18/21 09:26 02/18/21 09:34 Temperature Pulse Rate 68 89 Respiratory Rate 20 20 Blood Pressure Pulse Oximetry Intake/Output Intake/Output: Intake & Output 02/15/21 02/16/21 02/17/21 02/18/21 23:59 23:59 23:59 23:59 Intake Total 960 740 Output Total 1900 700 Balance -940 40 Meds/Results Medications: Active Medications Generic Name Dose Route Start Last Admin Trade Name Freq PRN Reason Stop Dose Admin Hydrocodone Bitart/Acetaminop
[2021-02-18 12:26] LABS: Glucose Point of Care 151 mg/dl (65-105)
--- NOTE | 2021-02-18 16:05 | PM.DS ---
DS: Admitting Diagnosis Admitting Diagnosis (1) Atrial fibrillation with rapid ventricular response: Code(s): I48.91 - Unspecified atrial fibrillation Status: Acute (2) Elevated troponin: Code(s): R77.8 - Other specified abnormalities of plasma proteins Status: Acute (3) Chest pain: Code(s): R07.9 - Chest pain, unspecified Status: Acute (4) Subtherapeutic anticoagulation: Code(s): Z51.81 - Encounter for therapeutic drug level monitoring; Z79.01 - exterminator helper termite (current) use of anticoagulants Status: Acute (5) Chronic respiratory failure with hypoxia, on home oxygen therapy: Code(s): J96.11 - Chronic respiratory failure with hypoxia; Z99.81 - Dependence on supplemental oxygen Status: Acute (6) Chronic anticoagulation: Code(s): Z79.01 - exterminator helper termite (current) use of anticoagulants Status: Acute (7) Type 2 diabetes mellitus: Code(s): E11.9 - Type 2 diabetes mellitus without complications Status: Acute (8) Dyslipidemia: Code(s): E78.5 - Hyperlipidemia, unspecified Status: Acute (9) Anemia in chronic kidney disease: Code(s): N18.9 - Chronic kidney disease, unspecified; D63.1 - Anemia in chronic kidney disease Status: Acute (10) Chronic kidney disease, stage 4 (severe): Code(s): N18.4 - Chronic kidney disease, stage 4 (severe) Status: Acute (11) Combined systolic and diastolic congestive heart failure: Code(s): I50.40 - Unspecified combined systolic (congestive) and diastolic (congestive) heart failure Status: Acute DS: Discharge Diagnosis Discharge Diagnosis (1) Atrial fibrillation with rapid ventricular response: Code(s): I48.91 - Unspecified atrial fibrillation Status: Acute (2) Elevated troponin: Code(s): R77.8 - Other specified abnormalities of plasma proteins Status: Acute (3) Chest pain: Code(s): R07.9 - Chest pain, unspecified Status: Acute (4) Subtherapeutic anticoagulation: Code(s): Z51.81 - Encounter for therapeutic drug level monitoring; Z79.01 - residential (current) use of anticoagulants Status: Acute (5) Hypertension, essential: Code(s): I10 - Essential (primary) hypertension Status: Acute (6) Type 2 diabetes mellitus with hyperglycemia, without long-term current use of insulin: Code(s): E11.65 - Type 2 diabetes mellitus with hyperglycemia Status: Acute (7) Chronic atrial fibrillation, unspecified: Code(s): I48.20 - Chronic atrial fibrillation, unspecified Status: Acute (8) Anemia due to stage 3 chronic kidney disease: Code(s): N18.3 - Chronic kidney disease, stage 3 (moderate); D63.1 - Anemia in chronic kidney disease Status: Acute (9) Chronic heart failure with preserved ejection fraction (HFpEF): Code(s): I50.32 - Chronic diastolic (congestive) heart failure Status: Acute (10) Paroxysmal atrial fibrillation: Onset Date: 12/21/18 Code(s): I48.0 - Paroxysmal atrial fibrillation Status: Acute (11) PATRICIA (obstructive sleep apnea): Code(s): G47.33 - Obstructive sleep apnea (adult) (pediatric) Status: Acute (12) Moderate to severe pulmonary hypertension: Code(s): I27.20 - Pulmonary hypertension, unspecified Status: Acute (13) Hypertensive heart and renal disease with (congestive) heart failure: Code(s): I13.0 - Hypertensive heart and chronic kidney disease with heart failure and stage 1 through stage 4 chronic kidney disease, or unspecified chronic kidney disease Status: Acute (14) Chronic obstructive pulmonary disease: Qualifiers: COPD type: COPD with acute lower respiratory infection Qualified Code(s): J44.0 - Chronic obstructive pulmonary disease with (acute) lower respiratory infection Code(s): J44.9 - Chronic obstructive pulmonary disease, unspecified Status: Acute (15) Chronic respiratory
== END 2021-02-18 17:05 | disposition home or self-care (01) ==
LOC: ANHED 03:32 → ANHIMU 05:53
PROVIDERS: Admitting Provider Internal Medicine; Emergency Provider Emergency Medicine; PCP Internal Medicine; Visit Provider Hospitalist
DX: I13.0 Hypertensive heart and chronic kidney disease with heart failure and stage 1 through stage 4 chronic kidney disease, or unspecified chronic kidney disease (principal); R07.9 Chest pain, unspecified; I48.91 Unspecified atrial fibrillation; R77.8 Other specified abnormalities of plasma proteins; D63.1 Anemia in chronic kidney disease; E11.22 Type 2 diabetes mellitus with diabetic chronic kidney disease; E11.65 Type 2 diabetes mellitus with hyperglycemia; E78.5 Hyperlipidemia, unspecified; I50.40 Unspecified combined systolic (congestive) and diastolic (congestive) heart failure; J96.10 Chronic respiratory failure, unspecified whether with hypoxia or hypercapnia; N18.4 Chronic kidney disease, stage 4 (severe); Z95.5 Presence of coronary angioplasty implant and graft; Z79.01 Long term (current) use of anticoagulants; Z99.81 Dependence on supplemental oxygen; Z87.891 Personal history of nicotine dependence
CPT/HCPCS: 36415; 71046; 80048; 82948; 84484; 85025; 85610; 85730; 93005; 94640; 96365; 96366; 96372; 99285; A9270; G0378; J1650; J1815

== ENCOUNTER 2021-03-05 13:54 | Observation (INO) | payer MEDICARE, SELFPAY ==
[2021-03-05] VITALS (8 sets, daily range): BP systolic 119–185; BP diastolic 45–63; PULSE 54–100; RESP 17–20; TEMP 35.9–36.6; O2SAT 94–99; BMI 30.9
--- NOTE | ~2021-03-05 | US_ITS ---
US renal BI 03/06/2021 11:10 Procedure: Realtime transabdominal ultrasound of the kidneys and bladder. Indication: Worsening renal function Comparison: Ultrasound dated 05/16/2017 Findings: Renal echotexture is increased bilaterally, consistent with chronic medical renal disease. There are multiple bilateral renal cysts, largest in the right kidney measuring 2.1 cm. Largest in th e left kidney measures 5.2 cm. The right kidney measures 12.2 cm and left kidney measures 14.5 cm. B ladder not well distended for evaluation. Impression: 1: Echogenic bilateral renal cortical echotexture, consistent with chronic medical renal disease. 2: Bilateral renal cysts, largest in the left kidney measuring 5.2 cm. Reviewed, dictated and finalized at location A. Impression: 1: Echogenic bilateral renal cortical echotexture, consistent with chronic medi marcelo renal disease. 2: Bilateral renal cysts, largest in the left kidney measuring 5.2 cm.
--- NOTE | ~2021-03-05 | XR_ITS ---
EXAMINATION: XR chest 2V EXAM DATE: 03/05/2021 14:36 INDICATION: Arrythmia, HX: AAA, DM2. TECHNIQUE: Frontal and lateral projections of the chest obtained and reviewed. Comparison is made to prior examination from 02/17/2021. FINDINGS: The lungs are hyperinflated which can be seen with chronic obstructive pulmonary disease ( a clinical diagnosis of functional impairment), but is not diagnostic of it. Cardiac silhouette is en larged but stable in size compared to prior exam. There is pulmonary vascular congestion. Aortic valv e stent or graft. Right basilar granuloma. The lungs are otherwise clear. There are bony degenerative changes. IMPRESSION: 1. Cardiomegaly, pulmonary vascular congestion. 2. Hyperinflation. Reviewed, dictated and finalized at location B.
--- NOTE | 2021-03-05 13:59 | ECG_ITS ---
Measurements Intervals [place] Rate: 100 P: IN: 0 QRS: -55 QRSD: 173 T: 88 QT: 458 QTc: 592 Interpretive Statements ATRIAL FIBRILLATION WITH RAPID VENTRICULAR RESPONSE LEFT AXIS DEVIATION LEFT BUNDLE BRANCH BLOCK ABNORMAL ECG Electronically Signed On 03-05-2021 14:07:27 CDT by Petar Dunaway D.O.
[2021-03-05 14:23] LABS: Basophils Absolute Auto 0.1 K/mm3 (0.0-0.1); Basophils Percent Auto 0.8 % (0.2-1.2); Eosinophils Absolute Auto 0.2 K/mm3 (0-0.3); Eosinophils Percent Auto 3.5 % (0-4.4); Hematocrit 33.9 % (42.0-52.0); Immature Granulocyte Absolute 0.04 K/mm3 (0.00-0.031); Immature Granulocyte Percent A 0.6 % (0-0.5); Lymphocytes Absolute Auto 0.84 K/mm3 (0.9-3.2); Lymphocytes Percent Auto 13.3 % (18.3-44.2); Mean Corpuscular HGB Conc 29.5 g/dl (32-36); Mean Corpuscular Volume 91.6 fl (80-100); Mean Platelet Volume 11.4 fl (7.4-10.4); Monocytes Absolute Auto 0.7 K/mm3 (0.1-0.6); Monocytes Percent Auto 11.3 % (2.6-8.5); Neutrophils Absolute Auto 4.4 K/mm3 (1.3-6.7); Neutrophils Percent Auto 70.5 % (45.5-73.1); Platelet Count Result 153 k/mm3 (150-375); Red Cell Distribution Width 16.8 % (11.5-14.5); White Blood Count 6.3 K/mm3 (4.5-10.0)
[2021-03-05 14:31] LABS: Prothrombin Time 22.4 Seconds (11.1-14.7)
[2021-03-05 14:32] LABS: Partial Thromboplastin Time 39.7 SECONDS (22.3-36.8)
[2021-03-05 14:40] LABS: Anion Gap 11 mmol/L (8-16); Blood Urea Nitrogen 83 mg/dL (9-20); Calcium 8.5 mg/dL (8.4-10.2); Carbon Dioxide 29 mmol/L (22-30); Chloride 101 mmol/L (98-107); Estimated CRCL calculation 16 ml/min; Estimated Glomerular Filt Rate 17; Glucose 206 mg/dL (65-110); Potassium 2.8 mmol/L (3.4-5.0); Sodium 141 mmol/L (137-145)
[2021-03-05 14:53] LABS: Troponin I 0.049 ng/mL (0.000-0.034)
[2021-03-05 16:13] LABS: Lymphocytes Absolute Manual 1.13 K/mm3 (1.1-4.5); Monocytes Absolute Manual 0.37 K/mm3 (0.1-0.90); Monocytes Percent Manual 6 % (3-9); Neutrophils Percent Manual 76 % (46-73); Total Cells Counted 100
[2021-03-05 16:14] LABS: Anisocytosis 2+ (NORMAL); Hypochromasia 1+ (NORMAL); Platelet Estimate Adequate (Adequate)
--- NOTE | 2021-03-05 16:34 | ED.GENADULT ---
HPI - General Adult General Chief complaint: Arrhythmia/Palpitations Stated complaint: fast HR, cp Time Seen by Provider: 03/05/21 16:10 Source: patient History of Present Illness HPI narrative: Patient is a 85 y/o male complaining heart palpitation starting 3 hours ago. He states that he felt his heart beat was fast and irregular. There is no known alleviating or exacerbating factor. He also had some chest pressure. Related Data Home Medications Medication Instructions Recorded Confirmed atorvastatin 40 mg PO HS 04/22/19 02/22/21 gabapentin 600 mg PO DAILY 08/01/20 02/22/21 hydralazine 100 mg tablet 100 mg PO BID tablet 10/05/20 02/22/21 bumetanide 2 mg PO BID 11/11/20 02/22/21 carvedilol 12.5 mg PO BID 11/11/20 02/22/21 warfarin 3 mg tablet 2.5 mg PO WEEKLY 11/14/20 02/22/21 terazosin 2 mg PO DAILY 12/30/20 02/22/21 warfarin 3 mg PO DAILY 02/17/21 02/22/21 Allergies Allergy/AdvReac Type Severity Reaction Status Date / Time prednisolone Allergy Severe Loss of Verified 03/05/21 14:08 Consciousness prednisone Allergy Severe Loss of Verified 03/05/21 14:08 Consciousness adhesive tape Allergy Mild Rash Verified 03/05/21 14:08 atorvastatin Allergy Unknown Muscle Pain Verified 03/05/21 14:08 flecainide Allergy Unknown FEET Verified 03/05/21 14:08 NUMBNESS Review of Systems Constitutional: Constitutional: Denies chills, Denies fever(s), Denies headache(s) and Denies weakness Eyes: Eyes: Denies blurry vision ENT: Denies headache(s) and Denies neck pain Cardiovascular: Cardiovascular: Reports chest pain, Reports rapid heart rate and Denies dyspnea Respiratory: Respiratory: Denies cough and Denies dyspnea Gastrointestinal: Gastrointestinal: Denies abdominal pain, Denies diarrhea, Denies nausea and Denies vomiting Genitourinary: Genitourinary: Denies hematuria and Denies dysuria Musculoskeletal: Musculoskeletal: Denies back pain and Denies neck pain Neurologic: Denies headache(s) and Denies weakness [facility] Past Medical History Medical History Abdominal aortic aneurysm Anemia in chronic kidney disease Aortic valve stenosis, acquired Status post aortic valve replacement. Arthritis Atherosclerosis of [place] coronary artery of [place] heart Chronic anticoagulation Chronic atrial fibrillation, unspecified Chronic kidney disease, stage 4 (severe) Baseline creatinine is around 2.90. 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 Could not exclude a laminated thrombus. Diabetic peripheral neuropathy Dyslipidemia Gout Hypertension, essential Nephrolithiasis Peripheral vascular disease of lower extremity Type 2 diabetes mellitus Ulcerative colitis Surgical History Surgical History History of aortic valve replacement with bioprosthetic valve (04/2020) Per Dr. Michael at [facility]. History of cardiac catheterization History of cataract extraction History of colonoscopy with polypectomy History of partial colectomy History of umbilical hernia repair History of vascular surgery Multiple lower extremity stents and femoral popliteal bypass. Family History Family History Sibling Patient's sister is in good health Father Family history of malignant neoplasm of bone Family history of malignant neoplasm Patient's father is , Onset Age: 60 Metastatic bone cancer Mother Family history of malignant neoplasm Family history of coronary artery disease STEMI (ST elevation myocardial infarction) Hypertension Mother No problems noted. Other Family history of arthritis Social History Social History (Reviewed
[2021-03-05 18:26] LABS: Troponin I 0.048 ng/mL (0.000-0.034)
[2021-03-05] MEDS: POTASSIUM CHLORIDE 20 MEQ TABLET 40 MEQ PO (18:47)
--- NOTE | 2021-03-05 21:26 | PM.IMHP ---
H&P: HPI History of Present Illness Date/Time: 03/05/21 21:26 this is a 85-year-old male patient who resides with his . He has a past medical history of having chronic renal failure in atrial fibrillation. The patient stated around 130 this afternoon he felt some palpitations and felt that he was going and AFib. His heart rate was bouncing back and forth between 73 and 117. The patient also had some chest pressure. The patient states that he is scheduled to see a [place] line attendant this next Friday after he has some labs drawn. Today the patient was found to be in AFib with RVR but then converted back to sinus rhythm with heart rate in the 50s and 60s today in the emergency room. His INR is 2.0. His potassium was noted to be 2.8. His creatinine is 3.4 with the wondering baseline between 2.8 and 3.4. Blood sugars 206. Troponins are mildly elevated 0.049 and 0.048 respectively. Patient no longer has any chest pain now that his heart rate is back in sinus rhythm. He does have a history of coronary artery disease with for coronary stents. The patient was supplemented with potassium and given an aspirin in the emergency room. The patient is being admitted to observation status on 03/05/2021. Chief Complaint: Chest pain Review of Systems Review of Systems: All systems reviewed & are unremarkable except as noted in HPI and below Constitutional: Constitutional: Reports as per HPI and Reports no additional constitutional complaints Eyes: Eyes: Reports as per HPI and Reports no additional eye complaints ENT: Reports system reviewed and no additional complaints, except as documented and Reports Normal hearing present Cardiovascular: Cardiovascular: Reports no additional cardiovascular complaints Respiratory: Respiratory: Reports no additional respiratory complaints and Reports no additional respiratory complaints Gastrointestinal: Gastrointestinal: Reports as per HPI and Reports no additional gastrointestinal complaints Musculoskeletal: Musculoskeletal: Reports no additional musculoskeletal complaints Integumentary/Breasts: Skin/Breast: Reports system reviewed and no additional complaints, except as docu and Reports as per HPI Neurologic: Reports system reviewed and no additional complaints, except as documented, Reports as per HPI and Reports Normal hearing present Psychiatric: Psychiatric: Reports no additional psychiatric complaints and Reports as per HPI Endocrine: Endocrine: Reports no additional endocrine complaints Hematologic/Lymphatic: Hematologic/Lymphatic: Reports no additional hematologic/lymphatic complaints Allergic/Immunologic: Allergic/Immunologic: Reports no additional allergic/immunologic complaints [facility] Past Medical History Medical History (Updated 03/05/21 @ 21:41 by Melly Carmen NP) Abdominal aortic aneurysm Anemia in chronic kidney disease Aortic valve stenosis, acquired Status post aortic valve replacement. Arthritis Atherosclerosis of [place] coronary artery of [place] heart CAP (community acquired pneumonia) Chronic anticoagulation Chronic atrial fibrillation, unspecified Chronic heart failure with preserved ejection fraction (HFpEF) Chronic kidney disease, stage 4 (severe) Baseline creatinine is around 2.90. 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 Could not exclude a laminated thrombus. Diabetic peripheral neuropathy Dyslipidemia Gout Hypertension, essential Nephrolithiasis Paroxysmal atrial fibrillation (12/21/18) Peripheral vascular disease of lower extremity Sepsis Type 2 diabetes mellitus Type 2 diabetes mellitus with hyperglycemia, without long-term current use of insulin Ulcerative colitis Surgical History Surgical History (Updated
--- NOTE | 2021-03-05 21:47 | ADMGEN ---
This patient, Cipriano Garcia, was admitted to IMU Room 205-01. Patient/family oriented to hospital policies and general routines including ID bracelet, bed and alarms, visiting hours, pain management, procedures, bathroom and other care routines, personal items, smoking policy, room service/diet, and visiting hours. Information on how to activate the Rapid Response Team has been discussed. Patient/Family are encouraged to report perceived risks to care and to ask questions if they do not understand what they are told or what they should do.
[2021-03-05 21:49] LABS: Troponin I 0.051 ng/mL (0.000-0.034)
[2021-03-05 22:17] LABS: Anion Gap 12 mmol/L (8-16); Blood Urea Nitrogen 86 mg/dL (9-20); Calcium 8.6 mg/dL (8.4-10.2); Carbon Dioxide 30 mmol/L (22-30); Chloride 103 mmol/L (98-107); Estimated CRCL calculation 16 ml/min; Estimated Glomerular Filt Rate 17; Glucose 220 mg/dL (65-110); Potassium 3.2 mmol/L (3.4-5.0); Sodium 145 mmol/L (137-145)
[2021-03-06] VITALS (15 sets, daily range): BP systolic 136–166; BP diastolic 44–54; PULSE 52–100; RESP 18–20; TEMP 35.6–36.4; O2SAT 91–99
[2021-03-06 05:00] LABS: Basophils Percent Auto 0.7 % (0.2-1.2); Eosinophils Absolute Auto 0.3 K/mm3 (0-0.3); Eosinophils Percent Auto 4.6 % (0-4.4); Hematocrit 34.3 % (42.0-52.0); Hemoglobin 10.1 g/dL (14.0-18.0); Immature Granulocyte Absolute 0.01 K/mm3 (0.00-0.031); Immature Granulocyte Percent A 0.2 % (0-0.5); Lymphocytes Percent Auto 11.6 % (18.3-44.2); Mean Corpuscular HGB Conc 29.4 g/dl (32-36); Mean Corpuscular Volume 91.7 fl (80-100); Mean Platelet Volume 11.3 fl (7.4-10.4); Monocytes Absolute Auto 0.7 K/mm3 (0.1-0.6); Monocytes Percent Auto 10.8 % (2.6-8.5); Neutrophils Absolute Auto 4.4 K/mm3 (1.3-6.7); Neutrophils Percent Auto 72.1 % (45.5-73.1); Platelet Count Result 144 k/mm3 (150-375); Red Blood Count 3.74 M/mm3 (4.6-6.20); Red Cell Distribution Width 16.8 % (11.5-14.5)
[2021-03-06 05:11] LABS: Prothrombin Time 21.9 Seconds (11.1-14.7)
[2021-03-06 05:12] LABS: Lactic Acid Reflex 0.9 mmol/L (0.7-2.1)
[2021-03-06 05:27] LABS: Alanine Aminotransferase 11 U/L (4-50); Albumin Level 3.7 g/dL (3.5-5.1); Alkaline Phosphatase 116 U/L (38-126); Anion Gap 11 mmol/L (8-16); Aspartate Amino Transferase 22 U/L (17-59); Bilirubin,Total 0.5 mg/dL (0.2-1.3); Blood Urea Nitrogen 85 mg/dL (9-20); Calcium 8.5 mg/dL (8.4-10.2); Carbon Dioxide 28 mmol/L (22-30); Chloride 106 mmol/L (98-107); Estimated CRCL calculation 17 ml/min; Estimated Glomerular Filt Rate 19; Glucose 158 mg/dL (65-110); Lactate Dehydrogenase 709 U/L (313-618); Lipase 912 U/L (23-300); Magnesium 2.5 mg/dL (1.6-2.3); Phosphorus 4.8 mg/dL (2.5-4.5); Potassium 3.2 mmol/L (3.4-5.0); Sodium 145 mmol/L (137-145)
[2021-03-06 06:56] LABS: Thyroid Stimulating Hormone Reflex 0.536 uIU/mL (0.465-4.68)
[2021-03-06 06:57] LABS: Hemoglobin A1C 7.5 % (<5.7)
[2021-03-06 08:07] LABS: Glucose Point of Care 140 mg/dl (65-105)
[2021-03-06] MEDS: AMIODARONE HCL 200 MG TABLET 400 MG PO (08:22)
[2021-03-06] MEDS: GABAPENTIN 300 MG CAPSULE 600 MG PO (08:23)
[2021-03-06] MEDS: ATORVASTATIN 40 MG TABLET PO (08:23)
[2021-03-06] MEDS: carvediloL 25 MG TABLET PO (08:23)
[2021-03-06] MEDS: hydrALAZINE HCL 50 MG TABLET 100 MG PO ×2 (08:23→13:21)
[2021-03-06] MEDS: ISOSORBIDE MONONITRATE 30 MG TAB.ER.24H PO (08:23)
[2021-03-06] MEDS: glipiZIDE 5 MG TABLET PO (12:22)
[2021-03-06] MEDS: POTASSIUM CHLORIDE 20 MEQ TABLET 40 MEQ PO (12:22)
[2021-03-06 12:32] LABS: Glucose Point of Care 291 mg/dl (65-105)
--- NOTE | 2021-03-06 16:42 | PM.DS ---
DS: Admitting Diagnosis Discharge Date 03/06/21 Admitting Diagnosis Palpitations DS: Discharge Diagnosis Discharge Diagnosis (1) Elevated troponin: Code(s): R77.8 - Other specified abnormalities of plasma proteins Status: Acute Assessment and Plan: Patient is an 85-year-old man with a history of AAA, CAD, combined systolic and diastolic CHF, CKD stage 4, diabetes type 2, paroxysmal AFib, who presented to the emergency room with palpitations. Patient has a long history of paroxysmal atrial fibrillation any usually can feel when he goes into episode. He was at home and could feel his heart going in and of atrial fibrillation and his rate between 70 and 17. He became concerned with associated chest pressure. Initial vitals showed blood pressure 119/51, heart rate 100, afebrile, normal oxygenation on 2 L of oxygen which is his chronic oxygen requirement at home. Initial labs showed normocytic anemia with a hemoglobin of 10, normal white blood cell count, normal neutrophil count, INR 2.0 on Coumadin, hypokalemia at 2.8, slight elevation of creatinine at 3.4 from his baseline creatinine with CKD of 2.7. Troponin slightly elevated 0.049 and flat at 0.051. Chest x-ray showed cardiomegaly, pulmonary vascular congestion, hyperinflation. EKG on arrival showed atrial fibrillation with RVR with heart rate of 100, left bundle branch block. The patient was admitted into the hospital to IMU to continue monitoring his heart. He converted into normal sinus rhythm on his own in the emergency room and rate has otherwise been controlled. The patient remained in normal sinus rhythm overnight with no more episodes of AFib. He was continued on his rate control agent. He has recently seen his family consumer science teacher but feels comfortable following the up in the office in 1-2 weeks. I also discussed with Elana Sims NP Cardiology about him (not formal consult) who believe she had just seen him in the office for his last admission follow-up. She feels comfortable with everything I told her that he can continue his normal regiment, call the office if he goes into AFib again or is concerned and follow-up in the next few weeks. I believe his troponins are slightly elevated due to AFib with RVR. He is not having any more chest pain since arrival. Echo reviewed from 08/02/2020 by his family consumer science teacher. Do not think we need to repeat 1 at this time. The admitting provider consulted Nephrology due to a slight increase from his baseline creatinine. I talked to the patient and he states he has an appointment in the next few weeks to see Dr. Pascual who is his can closing machine tender. I feel at this time is creatinine come down slightly to 3.2 with IV fluids. His renal ultrasound showed chronic medical renal disease. He is feeling well without any decreased urination. I talked to Dr. Mariela Cordova who feels comfortable with him being discharged home, I will repeat a renal panel in 1 week and have him follow-up with Dr. Pascual in the office. The patient otherwise feels well, at his baseline without any concerns or issues at this time. Will start Potassium 20 mEq supplementation due to hypokalemia most likely from Bumex diuretic. The patient understands and agrees the plan all questions answered. (2) Hypokalemia: Code(s): E87.6 - Hypokalemia Status: Acute Assessment and Plan: Potassium replenished and rule repeat a renal panel in 1 week. (3) Paroxysmal atrial fibrillation: Code(s): I48.0 - Paroxysmal atrial fibrillation Status: Acute Assessment and Plan: The patient is back in sinus rhythm. Continue with his home dose of amiodarone. Patient is on Coumadin and his INR is 2.0. Continue with Coreg. (4) Chest pain: Code(s): R07.9 - Chest pain, unspecified Status: Acute Assessment and Plan: The patient initially had chest pain while he was in AFib RVR but now that his heart rate is in sinus rhythm he has no further compla
[2021-03-06 17:59] LABS: Glucose Point of Care 139 mg/dl (65-105)
== END 2021-03-06 17:55 | disposition home or self-care (01) ==
LOC: ANHED 16:27 → ANHIMU 20:12
PROVIDERS: Emergency Medicine; Nurse Practitioner; Physician Assistant; Admitting Provider Internal Medicine; Emergency Provider Emergency Medicine; PCP Internal Medicine; Visit Provider Family Medicine
DX: R77.8 Other specified abnormalities of plasma proteins (principal); E87.6 Hypokalemia; I48.0 Paroxysmal atrial fibrillation; I13.0 Hypertensive heart and chronic kidney disease with heart failure and stage 1 through stage 4 chronic kidney disease, or unspecified chronic kidney disease; N18.4 Chronic kidney disease, stage 4 (severe); E11.22 Type 2 diabetes mellitus with diabetic chronic kidney disease; E11.42 Type 2 diabetes mellitus with diabetic polyneuropathy; E11.51 Type 2 diabetes mellitus with diabetic peripheral angiopathy without gangrene; I71.4 Abdominal aortic aneurysm, without rupture; I25.10 Atherosclerotic heart disease of native coronary artery without angina pectoris; J96.11 Chronic respiratory failure with hypoxia; Z99.81 Dependence on supplemental oxygen; I50.40 Unspecified combined systolic (congestive) and diastolic (congestive) heart failure; E78.5 Hyperlipidemia, unspecified; M10.9 Gout, unspecified; Z93.3 Colostomy status; Z95.2 Presence of prosthetic heart valve; Z79.01 Long term (current) use of anticoagulants; Z90.49 Acquired absence of other specified parts of digestive tract; Z95.820 Peripheral vascular angioplasty status with implants and grafts; Z87.891 Personal history of nicotine dependence; Z79.51 Long term (current) use of inhaled steroids; Z79.891 Long term (current) use of opiate analgesic
CPT/HCPCS: 36415; 71046; 76775; 80048; 80053; 82948; 83036; 83605; 83615; 83690; 83735; 84100; 84443; 84484; 85025; 85610; 85730; 93005; 99285; A9270; G0378

== ENCOUNTER 2021-03-12 12:04 | Outpatient (CLI) | payer MEDICARE, SELFPAY ==
[2021-03-12 12:47] LABS: Albumin Level 4.1 g/dL (3.5-5.1); Anion Gap 12 mmol/L (8-16); Blood Urea Nitrogen 99 mg/dL (9-20); Calcium 8.8 mg/dL (8.4-10.2); Carbon Dioxide 31 mmol/L (22-30); Chloride 100 mmol/L (98-107); Estimated Glomerular Filt Rate 16; Glucose 158 mg/dL (65-110); Phosphorus 5.6 mg/dL (2.5-4.5); Potassium 3.4 mmol/L (3.4-5.0); Sodium 143 mmol/L (137-145)
== END 2021-03-12 12:05 | disposition home or self-care (01) ==
PROVIDERS: PCP Internal Medicine; Referring Provider Internal Medicine Nephrology; Visit Provider Physician Assistant
DX: E87.6 Hypokalemia (principal); N18.4 Chronic kidney disease, stage 4 (severe); E11.9 Type 2 diabetes mellitus without complications
CPT/HCPCS: 36415; 80069

== ENCOUNTER 2021-03-29 11:35 | Outpatient (CLI) | payer MEDICARE, SELFPAY ==
[2021-03-29 12:30] LABS: Anion Gap 9 mmol/L (8-16); Blood Urea Nitrogen 67 mg/dL (9-20); Calcium 8.6 mg/dL (8.4-10.2); Carbon Dioxide 29 mmol/L (22-30); Chloride 104 mmol/L (98-107); Estimated Glomerular Filt Rate 14; Glucose 103 mg/dL (65-110); Phosphorus 4.8 mg/dL (2.5-4.5); Potassium 3.5 mmol/L (3.4-5.0); Sodium 142 mmol/L (137-145)
== END 2021-03-29 11:36 | disposition home or self-care (01) ==
LOC: ANHLAB 11:37
PROVIDERS: PCP Internal Medicine; Visit Provider Internal Medicine Nephrology
DX: N18.4 Chronic kidney disease, stage 4 (severe) (principal)
CPT/HCPCS: 36415; 80069

== ENCOUNTER 2021-04-03 07:16 | Outpatient (CLI) | payer MEDICARE, SELFPAY ==
[2021-04-03 09:41] LABS: Alanine Aminotransferase 13 U/L (4-50); Albumin Level 4.1 g/dL (3.5-5.1); Alkaline Phosphatase 119 U/L (38-126); Anion Gap 15 mmol/L (8-16); Aspartate Amino Transferase 20 U/L (17-59); Bilirubin,Total 0.5 mg/dL (0.2-1.3); Blood Urea Nitrogen 86 mg/dL (9-20); Calcium 8.9 mg/dL (8.4-10.2); Carbon Dioxide 24 mmol/L (22-30); Chloride 102 mmol/L (98-107); Cholesterol 213 mg/dL (0-200); Estimated Glomerular Filt Rate 13; Glucose 187 mg/dL (65-110); HDL Direct 33 mg/dL; Potassium 3.4 mmol/L (3.4-5.0); Sodium 141 mmol/L (137-145); Triglycerides 358 mg/dL (<150)
[2021-04-03 09:54] LABS: LDL Cholesterol Direct 83 mg/dL
[2021-04-03 10:04] LABS: Hemoglobin A1C 7.7 % (<5.7)
== END 2021-04-03 07:17 | disposition home or self-care (01) ==
PROVIDERS: PCP Internal Medicine; Referring Provider Internal Medicine Nephrology; Visit Provider Nurse Practitioner
DX: E78.5 Hyperlipidemia, unspecified (principal); E11.9 Type 2 diabetes mellitus without complications
CPT/HCPCS: 36415; 80053; 80061; 83036

== ENCOUNTER 2021-06-07 11:56 | Outpatient (CLI) | payer MEDICARE, SELFPAY ==
[2021-06-07 13:01] LABS: INR 1.4; Prothrombin Time 16.9 Seconds (11.1-14.7)
[2021-06-07 13:02] LABS: Anion Gap 9 mmol/L (8-16); Blood Urea Nitrogen 99 mg/dL (9-20); Calcium 9.6 mg/dL (8.4-10.2); Carbon Dioxide 33 mmol/L (22-30); Chloride 97 mmol/L (98-107); Estimated Glomerular Filt Rate 16; Glucose 251 mg/dL (65-110); Potassium 4.4 mmol/L (3.4-5.0); Sodium 139 mmol/L (137-145)
== END 2021-06-07 11:57 | disposition home or self-care (01) ==
LOC: ANHLAB 12:04
PROVIDERS: PCP Internal Medicine
DX: I50.43 Acute on chronic combined systolic (congestive) and diastolic (congestive) heart failure (principal); Z51.81 Encounter for therapeutic drug level monitoring; Z79.01 Long term (current) use of anticoagulants; I48.91 Unspecified atrial fibrillation
CPT/HCPCS: 36415; 80048; 85610

== ENCOUNTER 2021-06-18 09:28 | Outpatient (CLI) | payer MEDICARE, SELFPAY ==
[2021-06-18 10:06] LABS: Hematocrit 35.4 % (42.0-52.0); Hemoglobin 10.6 g/dL (14.0-18.0); Mean Corpuscular HGB Conc 29.9 g/dl (32-36); Mean Corpuscular Hemoglobin 27.1 pg (26-34); Mean Corpuscular Volume 90.5 fl (80-100); Mean Platelet Volume 10.8 fl (7.4-10.4); Platelet Count Result 193 k/mm3 (150-375); Red Blood Count 3.91 M/mm3 (4.6-6.20); Red Cell Distribution Width 17.6 % (11.5-14.5); White Blood Count 9.6 K/mm3 (4.5-10.0)
[2021-06-18 10:17] LABS: Total Protein Urine Random 11 mg/dL; Ur Ttl Prot Creatinine Ratio 0.14 mg/mg (0-0.20)
[2021-06-18 10:26] LABS: Parathyroid Intact 258.7 pg/mL (7.5-53.5)
[2021-06-18 10:30] LABS: Alanine Aminotransferase 26 U/L (4-50); Albumin Level 3.6 g/dL (3.5-5.1); Alkaline Phosphatase 130 U/L (38-126); Anion Gap 14 mmol/L (8-16); Aspartate Amino Transferase 30 U/L (17-59); Bilirubin,Total 0.5 mg/dL (0.2-1.3); Blood Urea Nitrogen 106 mg/dL (9-20); Calcium 8.8 mg/dL (8.4-10.2); Carbon Dioxide 30 mmol/L (22-30); Chloride 91 mmol/L (98-107); Estimated Glomerular Filt Rate 12; Glucose 477 mg/dL (65-110); Potassium 2.7 mmol/L (3.4-5.0); Sodium 135 mmol/L (137-145)
== END 2021-06-18 09:29 | disposition home or self-care (01) ==
PROVIDERS: PCP Internal Medicine; Referring Provider Internal Medicine Nephrology; Visit Provider Nurse Practitioner
DX: N18.4 Chronic kidney disease, stage 4 (severe) (principal)
CPT/HCPCS: 36415; 80053; 82570; 83970; 84100; 84156; 85027

== ENCOUNTER 2021-07-31 12:05 | Inpatient (IN) | payer MEDICARE, OTHER, SELFPAY ==
[2021-07-31] VITALS (48 sets, daily range): BP systolic 101–154; BP diastolic 41–114; PULSE 64–88; RESP 16–32; TEMP 36.4–36.6; O2SAT 84–100; BMI 27.9
--- NOTE | ~2021-07-31 | US_ITS ---
EXAMINATION: US thoracentesis DATE: 08/07/2021 12:48 INDICATION: pleural effusion TECHNIQUE: The procedure and its risks, benefits, and alternatives were discussed with the patient. P otential risks discussed included bleeding, infection, and pneumothorax. The patient understood the r isks and agreed to proceed. The skin was prepped and draped in sterile fashion. 1% lidocaine was used for local anesthesia. Under ultrasound guidance, a 5 Fr catheter with trochar was advanced into the left pleural effusion. Fluid was aspirated. The catheter was removed, and a dressing was applied. The re were no immediate complications. FINDINGS: Ultrasound images demonstrate a left pleural effusion and the catheter within the fluid. IMPRESSION: 1. Successful ultrasound-guided thoracentesis yielding 50 mL of opaque, pink-dennison fluid. Reviewed, dictated and finalized at location A. GE AGENT IMPRESSION: 1. Successful ultrasound-guided thoracentesis yielding 50 mL of opaque, pink-t an fluid.
--- NOTE | ~2021-07-31 | XR_ITS ---
EXAMINATION: XR chest 1V portable DATE: 08/03/2021 13:28 INDICATION: Shortness of breath. TECHNIQUE: A single frontal view of the chest was obtained. COMPARISON: Chest 2 views 07/31/2021, chest CT 01/15/2021 FINDINGS: The patient is rotated to his left. There are lucencies in the lungs, consistent with emphy sema. There are airspace opacities in right lower lung zone and left mid and lower lung zones. A calc ified right lung nodule and calcified right hilar and mediastinal lymph nodes are consistent with old granulomatous disease. There is a moderate-sized left pleural effusion. No pneumothorax. Cardiomegal y is noted. There are changes of aortic valve replacement. There is a left chest pacer with leads in right atrium, right ventricle, and coronary sinus. Surgical clips overlie right chest. IMPRESSION: 1. Stable moderate-sized left pleural effusion. 2. Stable airspace opacities in right lower zone and left mid and lower lung zones, consistent with a telectasis versus pneumonia. 3. Emphysema. 4. Cardiomegaly. Reviewed, dictated and finalized at location E. OOER IMPRESSION: 1. Stable moderate-sized left pleural effusion. 2. Stable airspace opacities in right lower zone and left mid and lower lung zo melissa, consistent with atelectasis versus pneumonia. 3. Emphysema. 4. Cardiomegaly.
--- NOTE | ~2021-07-31 | XR_ITS ---
EXAMINATION: XR chest 1V portable INDICATION: Pneumonia TECHNIQUE: Portable AP chest at 1051 hours COMPARISON: 08/07/2021 FINDINGS: A moderate size loculated left pleural effusion is stable. There is no pneumothorax. Diffus e airspace opacities persist in the left lung zone. Airspace opacities have developed in the right pati ng base. There is cardiomegaly. Changes of endoluminal aortic valve replacement are noted. A triple l ead cardiac pacemaker of the left chest wall ends with leads in expected locations. Surgical clips pr oject over the right lung apex. IMPRESSION: 1. Diffuse lung disease with slight interval worsening, likely pneumonia. 2. Moderate-sized left pleural effusion. 3. Cardiomegaly. Reviewed, dictated and finalized at location A. WRITER
--- NOTE | ~2021-07-31 | XR_ITS ---
EXAMINATION: XR chest 2V EXAM DATE: 07/31/2021 13:08 INDICATION: Cough, abnormal auscultation. TECHNIQUE: Frontal and lateral projections of the chest obtained and reviewed. Comparison is made to prior examination from 03/05/21. FINDINGS: There is moderate-sized left pleural effusion, adjacent atelectasis. Underlying edema or p neumonia not excludable. Underlying moderate hyperinflation. Multi lead pacemaker/AICD device. Aortic valve replacement. There is cardiomegaly, not significantly changed compared to prior study. There i s no pneumothorax suspected. There are bony degenerative changes. Right basilar granuloma. IMPRESSION: 1. Moderate left pleural effusion, adjacent lobar atelectasis. Underlying edema or pneumonia not exc ludable. 2. Cardiomegaly unchanged. 3. Hyperinflation. Reviewed, dictated and finalized at location B. STER IN [employer] IMPRESSION: 1. Moderate left pleural effusion, adjacent lobar atelectasis. Underlying rossy a or pneumonia not excludable. 2. Cardiomegaly unchanged. 3. Hyperinflation.
--- NOTE | ~2021-07-31 | XR_ITS ---
EXAMINATION: [id number] DATE: 08/07/2021 12:48 INDICATION: Left pleural effusion status post thoracentesis. TECHNIQUE: A single frontal view of the chest was obtained. COMPARISON: Chest single view 08/03/2021, chest CT 01/15/2021 FINDINGS: There are lucencies in the lungs, consistent with emphysema. A calcified right lung nodule is consistent with old granulomatous disease. There is mild atelectasis at right lung base. There are airspace opacities in all left lung zones. There is a moderate-sized loculated left pleural effusion . No pneumothorax. Cardiomegaly is noted. There are changes of aortic valve replacement. There is a l eft chest pacer/defibrillator with leads in right atrium, right ventricle, and coronary sinus. There are surgical clips in right upper chest. IMPRESSION: 1. Moderate-sized loculated left pleural effusion with little change status post thoracentesis. 2. Diffuse left lung disease, consistent with pneumonia. Mild atelectasis at right lung base. 3. Emphysema. 4. Cardiomegaly. Reviewed, dictated and finalized at location A. E RECEIVER IMPRESSION: 1. Moderate-sized loculated left pleural effusion with little change status pos t thoracentesis. 2. Diffuse left lung disease, consistent with pneumonia. Mild atelectasis at ri ght lung base. 3. Emphysema. 4. Cardiomegaly.
--- NOTE | ~2021-07-31 | XR_ITS ---
EXAMINATION: XR barium swallow modified DATE: 08/01/2021 14:45 INDICATION: Dysphagia. TECHNIQUE: The patient was given barium-containing material of multiple consistencies to swallow by [facility] speech pathologist while I performed fluoroscopy. Dose-area product was 1.565 Gy-cm2. 3.7 minutes FINDINGS: Oral Stage: Within functional limits Pharyngeal Phase: Reduced laryngeal elevation Reduced tongue base retraction Vallecular residue Laryngeal penetration and was silent aspiration Cervical/Esophageal Stage: Within functional limits IMPRESSION: Modified esophagram findings as above. Please refer to the speech [facility]. Reviewed, dictated and finalized at [facility]. Reviewed, dictated and finalized at location A. GER UROLOGY IMPRESSION: Modified esophagram findings as above. Please refer to the speech t herapy report for specific recommendations.
--- NOTE | ~2021-07-31 | CT_ITS ---
EXAMINATION: CT diagnostic chest wo con DATE: 08/10/2021 09:06 INDICATION: Shortness of breath TECHNIQUE: Computed tomography (CT) of the chest was performed without intravenous contrast. The dose -length product (DLP) was 287.85 mGy-cm. Automated exposure control and iterative reconstruction tech [employer] were employed. COMPARISON: 01/16/2020 FINDINGS: There is moderate emphysema. A moderate-sized loculated left pleural effusion is noted. The re is a small right pleural effusion. There is atelectasis of the left lower lobe. Some areas of flui d and gas containing fluid are noted in the left lower lobe. There is no pneumothorax. The heart size is normal. Changes of endoluminal aortic valve replacement are noted. A triple lead cardiac pacemake r of the left chest wall ends with leads in expected locations. There is moderate thoracic spondylosi s. A fluid attenuation subcutaneous mass in the midline upper back is consistent with a sebaceous cys t. No pathologically enlarged thoracic lymph nodes are identified. There is a 4.5 cm cyst of the left hepatic lobe. Punctate calcifications in an otherwise normal spleen likely represent healed granulom atous disease. There are multiple cysts of the visualized kidneys.. IMPRESSION: 1. Moderate-sized loculated left pleural effusion and small right pleural effusion. 2. Fluid and gas containing fluid collections of the left lower lobe, possible pulmonary abscess. Reviewed, dictated and finalized at location A. RN IMPRESSION: 1. Moderate-sized loculated left pleural effusion and small right pleural effus ion. 2. Fluid and gas containing fluid collections of the left lower lobe, possible pulmonary abscess.
--- NOTE | 2021-07-31 12:26 | ECG_ITS ---
Measurements Intervals [place] Rate: 78 P: 255 HI: 249 QRS: 260 QRSD: 172 T: 70 QT: 476 QTc: 546 Interpretive Statements ATRIAL SENSE- ELECTRONIC VENTRICULAR PACEMAKER BASELINE ARTIFACT- I, II, AVR, AVL NO FURTHER INTERPRETATION IS POSSIBLE ATYPICAL ECG Electronically Signed On 07-31-2021 12:54:16 [employer] by Petar Dunaway D.O.
--- NOTE | 2021-07-31 12:34 | ED.SOB ---
HPI - SOB/Dyspnea General Chief Complaint: Shortness of Breath/Dyspnea Stated Complaint: SOB Time Seen by Provider: 07/31/21 12:25 Source: patient Mode of arrival: EMS Limitations: no limitations History of Present Illness HPI Narrative: Patient is an 86-year-old male complaining of shortness of breath accompanied by cough, productive, white-yellowish sputum that started this morning. Patient states that his cough is nothing new but his shortness of breath is worse compared to his usual. Patient has a history of COPD and CHF. Patient on 2 to 3 L of oxygen continuously at home. Patient denies any chest pain, abdominal pain, nausea, vomiting, diaphoresis, fever or chills. Related Data Home Medications Medication Instructions Recorded Confirmed hydralazine 100 mg tablet 100 mg PO TID tablet 10/05/20 06/18/21 carvedilol 25 mg PO BID 11/11/20 06/18/21 warfarin 3 mg PO DAILY 02/17/21 06/18/21 metolazone 5 mg tablet 5 mg PO DAILY tablet 06/18/21 06/18/21 Allergies Allergy/AdvReac Type Severity Reaction Status Date / Time prednisolone Allergy Severe Loss of Verified 06/18/21 08:44 Consciousness adhesive tape Allergy Unknown Unknown Verified 07/31/21 13:55 atorvastatin Allergy Unknown Muscle Pain Verified 06/18/21 08:44 flecainide Allergy Unknown FACIAL Unverified 07/24/21 08:49 NUMBNESS prednisone Allergy Unknown DIABETES,OSTEOPOROSIS, Unverified 07/24/21 08:49 DECREASED IMMUNE SYS Review of Systems Review of Systems: All systems reviewed & are unremarkable except as noted in HPI and below Constitutional: Constitutional: Denies body ache(s), Denies chills, Denies excessive sweating, Denies fatigue, Denies fever(s), Denies headache(s), Denies lethargy, Denies malaise, Denies weakness and Denies weight loss Eyes: Eyes: Denies blurry vision, Denies change in vision and Denies loss of vision ENT: Denies dizziness, Denies ear discharge, Denies headache(s), Denies lip swelling, Denies epistaxis, Denies nasal congestion, Denies neck pain, Denies throat swelling and Denies tongue swelling Cardiovascular: Cardiovascular: Denies chest pain, Denies chest pain at rest, Denies chest pain with activity, Denies diaphoresis, Denies rapid heart rate, Denies edema, Denies irregular heart rhythm, Denies lightheadedness and Denies palpitations Respiratory: Respiratory: Denies chest congestion and Denies hemoptysis Gastrointestinal: Gastrointestinal: Denies abdominal pain, Denies melena, Denies hematochezia, Denies diarrhea, Denies nausea, Denies vomiting and Denies hematemesis Musculoskeletal: Musculoskeletal: Denies abnormal gait, Denies deformity, Denies joint swelling, Denies limited range of motion, Denies neck pain and Denies numbness Neurologic: Denies Abnormal speech present, Denies abnormal gait, Denies confusion, Denies dizziness, Denies headache(s), Denies focal weakness, Denies loss of vision, Denies numbness, Denies Other visual disturbances, Denies Sensory deficit (Neuro) and Denies weakness Psychiatric: Psychiatric: Denies confusion, Denies depression, Denies auditory hallucinations, Denies homicidal ideation and Denies suicidal ideation Endocrine: Endocrine: Denies cold intolerance, Denies excessive sweating, Denies fatigue, Denies heat intolerance and Denies palpitations Hematologic/Lymphatic: Hematologic/Lymphatic: Denies easy bleeding and Denies easy bruising Allergic/Immunologic: Allergic/Immunologic: Denies lip swelling, Denies throat swelling and Denies tongue swelling PMFSH Past Medical History Medical History Abdominal aortic aneurysm Anemia in chronic kidney disease Aortic valve stenosis, acquired Status post aortic valve replacement. Arthritis Atherosclerosis of [place] coronary artery of [place] heart CAP (community acquired pneumonia) Chronic anticoagulation Chronic atrial fibrillation, unspecified Chronic heart failure with preserved ejection fr
[2021-07-31] MEDS: ALBUTEROL SULFATE NEB 2.5 MG/0.5 ML INH 5 MG INHALATION ×2 (12:46→19:39)
[2021-07-31] MEDS: IPRATROPIUM BR 0.02% INH SOLN 0.5 MG/2.5 ML VIAL INHALATION ×2 (12:46→19:39)
[2021-07-31 12:48] LABS: Glucose Point of Care > 500 mg/dl (65-105)
[2021-07-31 12:56] LABS: Alveolar/Arterial O2 Gradient 151.1 mmHg; Base Excess ABG 1.5 mEq/l (+/-2.0); Carboxyhemoglobin 0.5 % THb (0-2.0); Fractional Inspired Oxygen 36 %; HCO3 ABG 25.3 mEq/l (22.0-26.0); Oxygen Content ABG 14.8 %vol (16.0-22.0); Oxygen Saturation ABG 93.1 % (95.0-100.0); Oxyhemoglobin 90.7 % THb (90.0-100.0); PCO2 ABG 37.1 mmHg (35.0-45.0); PO2 ABG 62.5 mmHg (80.0-100.0); PO2 FiO2 Ratio Arterial Blood 1.74 %; Reduced Hemoglobin 8.8 %THb (0-5.0); Total Hemoglobin 11.6 g/dL (12.0-18.0); pH ABG 7.452 (7.350-7.450)
[2021-07-31 12:57] LABS: Device NASAL CANNULA; Modified Allen's Test Pass; Site Drawn RIGHT RADIAL
[2021-07-31 12:59] LABS: Basophils Absolute Auto 0.1 K/mm3 (0.0-0.1); Basophils Percent Auto 0.3 % (0.2-1.2); Eosinophils Percent Auto 0.1 % (0-4.4); Hematocrit 36.9 % (42.0-52.0); Hemoglobin 10.7 g/dL (14.0-18.0); Immature Granulocyte Absolute 0.16 K/mm3 (0.00-0.031); Immature Granulocyte Percent A 0.9 % (0-0.5); Lymphocytes Absolute Auto 0.34 K/mm3 (0.9-3.2); Lymphocytes Percent Auto 1.9 % (18.3-44.2); Mean Corpuscular Hemoglobin 27.2 pg (26-34); Mean Corpuscular Volume 93.7 fl (80-100); Mean Platelet Volume 11.1 fl (7.4-10.4); Monocytes Absolute Auto 1.1 K/mm3 (0.1-0.6); Monocytes Percent Auto 6.2 % (2.6-8.5); Neutrophils Absolute Auto 16.1 K/mm3 (1.3-6.7); Neutrophils Percent Auto 90.6 % (45.5-73.1); Platelet Count Result 256 k/mm3 (150-375); Red Blood Count 3.94 M/mm3 (4.6-6.20); Red Cell Distribution Width 18.2 % (11.5-14.5); White Blood Count 17.8 K/mm3 (4.5-10.0)
[2021-07-31 13:10] LABS: INR 2.4; Prothrombin Time 25.5 Seconds (11.1-14.7)
[2021-07-31 13:11] LABS: Alanine Aminotransferase 32 U/L (4-50); Albumin Level 3.1 g/dL (3.5-5.1); Alkaline Phosphatase 271 U/L (38-126); Anion Gap 14 mmol/L (8-16); Aspartate Amino Transferase 37 U/L (17-59); Bilirubin,Total 0.7 mg/dL (0.2-1.3); Blood Urea Nitrogen 85 mg/dL (9-20); Calcium 8.6 mg/dL (8.4-10.2); Carbon Dioxide 25 mmol/L (22-30); Chloride 96 mmol/L (98-107); Estimated Glomerular Filt Rate 14; Glucose 503 mg/dL (65-110); Partial Thromboplastin Time 46.2 SECONDS (22.3-36.8); Potassium 3.3 mmol/L (3.4-5.0); Sodium 135 mmol/L (137-145)
[2021-07-31 13:23] LABS: NT Pro B Type Natriuretic Pept 3600 pg/mL (5-100); Troponin I 0.045 ng/mL (0.000-0.034)
[2021-07-31] MEDS: DEXAMETHASONE SOD PHOS INJ 4 MG/ML VIAL 10 MG IV PUSH (14:19)
[2021-07-31] MEDS: POTASSIUM CHLORIDE 20 MEQ PACKET (FOR LIQUID) 40 MEQ PO (14:23)
[2021-07-31] MEDS: INSULIN HUMAN REGULAR (*BKC) 100 UNITS in SODIUM CHLORIDE 0.9% IV 99 ML 8.9 UNITS IV CONT (14:39)
[2021-07-31 15:30] LABS: Lactic Acid Reflex 1.7 mmol/L (0.7-2.1)
[2021-07-31] MEDS: ASPIRIN 81 MG CHEWABLE TABLET 324 MG PO (15:50)
[2021-07-31] MEDS: LACTATED RINGERS 1,000 ML 250 ML IV CONT (15:55)
[2021-07-31 16:42] LABS: Troponin I 0.043 ng/mL (0.000-0.034)
--- NOTE | 2021-07-31 16:45 | PM.IMHP ---
H&P: HPI History of Present Illness Date/Time: 07/31/21 16:45 <Kiana Strong PA-C - Last Filed: 07/31/21 23:52> Chief Complaint: Shortness of breath. <Kiana Strong PA-C - Last Filed: 07/31/21 23:52> Narrative: This is an 86-year-old male with chronic respiratory failure on 2 L nasal cannula, aortic stenosis status post TAVR, paroxysmal atrial fibrillation, coronary artery disease, peripheral arterial disease, type 2 diabetes, chronic kidney disease, hypertension, dyslipidemia, combined systolic and diastolic congestive heart failure, ulcerative colitis, and several other comorbidities who presented to the emergency department today via EMS from home for evaluation of shortness of breath. He was recently admitted to [facility] on 06/29/2021 with community acquired pneumonia. While working with PT became severely orthostatic not responsive to fluid boluses. His carvedilol, terazosin, and metolazone were stopped and he was started on midodrine. According to the discharge summary, all antihypertensives were discontinued and bumetanide was switched to Friday, Friday, and Friday. He has been doing well over the past couple of weeks since discharge though he continues to have a cough. He endorses chronic dyspnea though over the last several days he has been getting more short of breath on lesser and lesser exertion and his cough has gotten worse. He feels as though he is too weak to cough up phlegm though on the rare occasion that he is able to, it is typically clear to light yellow in color. Home health was visiting today and his SpO2 was reportedly in the 80s on his usual 2 L nasal cannula and EMS was summoned. On arrival his glucose read ?high? and random glucose on arrival to the emergency department was 503. He was hypokalemic thus he was not bolused with insulin and instead was started on insulin drip. That has since been discontinued and his glucose has been stable in the mid 100s. Further workup today included a chest x-ray showing moderate left size pleural effusion with adjacent atelectasis though underlying edema or pneumonia is not excludable. Additionally his BUN and creatinine are higher than what they typically run. He tells me he has been eating and drinking okay. He has not had fever, chills, or sweats. He denies nausea, vomiting, and diarrhea. He has not noticed a decrease in urine output. He is not complaining of any chest pain or pleuritic pain at the time my evaluation. <Kiana Strong PA-C - Last Filed: 07/31/21 23:52> Review of Systems Review of Systems: Twelve systems were reviewed. Rare coughing with eating and drinking. No concerns for aspiration. He denies sick contacts. No known exposure to those positive for COVID 19. Denies significant orthopnea. Occasional lower extremity edema. No syncope or near syncope. He admits he has not been checking his glucose at home very often. No blurry vision, polydipsia, or polyuria. Except as documented, all other systems were reviewed and are negative. <Kiana Strong PA-C - Last Filed: 07/31/21 23:52> [facility] Past Medical History Medical History: Medical History (Updated 07/31/21 @ 23:45 by Kiana Strong PA-C) Abdominal aortic aneurysm Anemia in chronic kidney disease Aortic valve stenosis, acquired Status post TAVR. Arthritis Atherosclerosis of [place] coronary artery of [place] heart Chronic anticoagulation Chronic atrial fibrillation, unspecified Chronic kidney disease, stage 4 (severe) Baseline creatinine is around 2.90. 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 Diabetic peripheral neuropathy Dyslipidemia Essential tremor Gout Hypertension, essential Nephrolithiasis Paroxysmal atrial fibrillation (12/21/18) Being evaluated for possib
--- NOTE | 2021-07-31 18:30 | PC.NURSE ---
Attempted to call report, nurse unavailable, told they would call back.
[2021-07-31 19:18] LABS: Glucose Point of Care 229 mg/dl (65-105)
[2021-07-31 19:19] LABS: Glucose Point of Care 393 mg/dl (65-105)
[2021-07-31 19:19] LABS: Glucose Point of Care 493 mg/dl (65-105)
[2021-07-31 19:19] LABS: Glucose Point of Care 237 mg/dl (65-105)
[2021-07-31 19:19] LABS: Glucose Point of Care 198 mg/dl (65-105)
[2021-07-31 19:19] LABS: Glucose Point of Care 138 mg/dl (65-105)
--- NOTE | 2021-07-31 19:44 | PC.NURSE ---
Report called to Peg VILLAGRAN in the ICU. ICU staff talking to house sup regarding possibly changing bed assignment.
[2021-07-31 19:55] LABS: Troponin I 0.048 ng/mL (0.000-0.034)
[2021-07-31 20:05] LABS: Anion Gap 8 mmol/L (8-16); Blood Urea Nitrogen 83 mg/dL (9-20); Calcium 8.7 mg/dL (8.4-10.2); Carbon Dioxide 26 mmol/L (22-30); Chloride 102 mmol/L (98-107); Estimated Glomerular Filt Rate 13; Glucose 137 mg/dL (65-110); Potassium 3.5 mmol/L (3.4-5.0); Sodium 136 mmol/L (137-145)
--- NOTE | 2021-07-31 20:22 | PC.NURSE ---
MARCIE BOURNE TO STOP INSULIN DRIP. PT WILL BE GOING TO IMU NOW.
--- NOTE | 2021-07-31 20:25 | PC.NURSE ---
Pt accidentally spilled his urinal in the bed. New gown placed on patient with clean linens. Pt informed of ready IMU bed. Repositioned in bed for comfort.
--- NOTE | 2021-07-31 21:15 | PC.NURSE ---
Attempted to call report to IMU, awaiting RN to return my call.
[2021-07-31 21:50] LABS: Glucose Point of Care 105 mg/dl (65-105)
[2021-07-31 21:50] LABS: Glucose Point of Care 135 mg/dl (65-105)
--- NOTE | 2021-07-31 22:16 | ADMGEN ---
This patient, Cipriano Garcia, was admitted to IMU Room 213-01 at 2210. Patient/family oriented to hospital policies and general routines including ID bracelet, bed and alarms, visiting hours, pain management, procedures, bathroom and other care routines, personal items, smoking policy, room service/diet, and visiting hours. Information on how to activate the Rapid Response Team has been discussed. Patient/Family are encouraged to report perceived risks to care and to ask questions if they do not understand what they are told or what they should do.
[2021-08-01] VITALS (19 sets, daily range): BP systolic 111–173; BP diastolic 43–64; PULSE 60–87; RESP 16–22; TEMP 36.6–36.9; O2SAT 87–94; BMI 27.9
[2021-08-01 00:50] LABS: Hemoglobin A1C 9.8 % (<5.7)
[2021-08-01 01:49] LABS: CRP 36.2 mg/dL (<1.0)
[2021-08-01 01:50] LABS: Procalcitonin 9.1 ng/mL
[2021-08-01] MEDS: HYDROcodone/acetaminophen (*CRX) 10-325 MG TABLET 1 TAB PO ×3 (02:21→23:10)
[2021-08-01] MEDS: ALBUTEROL SULFATE NEB 2.5 MG/0.5 ML INH 5 MG INHALATION ×4 (02:50→20:30)
[2021-08-01] MEDS: IPRATROPIUM BR 0.02% INH SOLN 0.5 MG/2.5 ML VIAL INHALATION ×4 (02:50→20:30)
[2021-08-01 05:19] LABS: Hematocrit 33.2 % (42.0-52.0); Hemoglobin 9.7 g/dL (14.0-18.0); Mean Corpuscular HGB Conc 29.2 g/dl (32-36); Mean Corpuscular Hemoglobin 27.2 pg (26-34); Mean Platelet Volume 11.2 fl (7.4-10.4); Platelet Count Result 233 k/mm3 (150-375); Red Blood Count 3.57 M/mm3 (4.6-6.20); White Blood Count 16.9 K/mm3 (4.5-10.0)
[2021-08-01 05:25] LABS: INR 2.3; Prothrombin Time 24.8 Seconds (11.1-14.7)
[2021-08-01 05:29] LABS: Alanine Aminotransferase 29 U/L (4-50); Albumin Level 2.7 g/dL (3.5-5.1); Alkaline Phosphatase 201 U/L (38-126); Anion Gap 9 mmol/L (8-16); Aspartate Amino Transferase 50 U/L (17-59); Bilirubin,Total 0.5 mg/dL (0.2-1.3); Blood Urea Nitrogen 90 mg/dL (9-20); Calcium 8.5 mg/dL (8.4-10.2); Carbon Dioxide 26 mmol/L (22-30); Chloride 101 mmol/L (98-107); Estimated CRCL calculation 13 ml/min; Estimated Glomerular Filt Rate 15; Glucose 239 mg/dL (65-110); Magnesium 2.3 mg/dL (1.6-2.3); Potassium 3.7 mmol/L (3.4-5.0); Sodium 136 mmol/L (137-145)
[2021-08-01 06:19] LABS: Thyroid Stimulating Hormone Reflex 0.058 uIU/mL (0.465-4.68)
[2021-08-01 07:46] LABS: Free T4 Free Thyroxine Reflex 2.79 ng/dL (0.78-2.19)
[2021-08-01] MEDS: DORNASE ALFA INH SOLN 1 MG/ML 2.5 ML AMP 2.5 MG INHALATION ×2 (09:09→20:20)
[2021-08-01 09:11] LABS: Glucose Point of Care 240 mg/dl (65-105)
[2021-08-01] MEDS: glipiZIDE 5 MG TABLET PO (10:04)
[2021-08-01] MEDS: ISOSORBIDE MONONITRATE 30 MG TAB.ER.24H PO (10:05)
[2021-08-01] MEDS: carvediloL 25 MG TABLET PO ×2 (10:06→17:30)
[2021-08-01] MEDS: GABAPENTIN 300 MG CAPSULE 600 MG PO ×2 (10:06→17:31)
[2021-08-01] MEDS: POTASSIUM CHLORIDE 20 MEQ TABLET.ER 40 MEQ PO (10:08)
[2021-08-01] MEDS: FEBUXOSTAT 40 MG TABLET PO (10:13)
[2021-08-01] MEDS: metOLazone 5 MG TABLET PO (10:13)
[2021-08-01] MEDS: hydrALAZINE HCL 50 MG TABLET 100 MG PO (10:16)
--- NOTE | 2021-08-01 10:18 | PCSTNOTE ---
Please refer to the Bedside Swallow Evaluation in the EMR. Please note, silent aspiration cannot be ruled out at bedside.
[2021-08-01] MEDS: INSULIN ASPART (*BKC) 100 UNITS/ML SUB-Q ×3 (10:26→17:36)
[2021-08-01 12:03] LABS: Glucose Point of Care 312 mg/dl (65-105)
--- NOTE | 2021-08-01 16:43 | PCSTNOTE ---
Please refer to the Modified Barium Swallow Evaluation in the EMR.
--- NOTE | 2021-08-01 17:04 | PM.IMPN ---
Progress Note: A&P Assessment and Plan (1) Pneumonia: Qualifiers: Laterality: left Lung location: unspecified part of lung Pneumonia type: due to unspecified organism Qualified Code(s): J18.9 - Pneumonia, unspecified organism Code(s): J18.9 - Pneumonia, unspecified organism Status: Acute Assessment and Plan: He has been started on azithromycin and ceftriaxone. Sputum to be attempted for culture. Urine to check for Legionella and strep pneumoniae antigens. Bedside swallow ordered to evaluate for possible dysphagia or concerns for aspiration. Schedule bronchodilators. Add Pulmozyme and Saman to help mobilize secretions. 08/01/2021 Interval history: patient presented with complaint of short suspect patient has pneumonia patient had a swallow study today suggested risk for aspiration patient is being treated with Rocephin and azithromycin will stop the Rocephin and start the patient on Unasyn to cover for anaerobic, upon arrival patient blood sugar was significantly elevated was a concern for DKA patient was started on insulin drip, insulin drip was stopped, patient blood sugars are trending down, patient currently on oral medication as well as sliding scale, will continue to monitor patient will have a PT OT evaluate and further recommendation to follow. (2) Severe hyperglycemia due to diabetes mellitus: Code(s): E11.65 - Type 2 diabetes mellitus with hyperglycemia Status: Acute Assessment and Plan: Started on insulin drip in the emergency department which has since been able to be discontinued. Continue basal insulin. Initiate sliding scale insulin, Accu-Cheks, and hypoglycemic protocol. Check A1c. (3) Acute hypokalemia: Code(s): E87.6 - Hypokalemia Status: Acute Assessment and Plan: Potassium will be replaced and monitored. (4) Acute renal failure superimposed on chronic kidney disease: Code(s): N17.9 - Acute kidney failure, unspecified; N18.9 - Chronic kidney disease, unspecified Status: Acute Assessment and Plan: His creatinine has varied widely over the years. He was hydrated in the ER given his severe hyperglycemia though will discontinue fluids at this time due to pleural effusion and crackles. 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 INR is therapeutic. (6) Paroxysmal atrial fibrillation: Code(s): I48.0 - Paroxysmal atrial fibrillation Status: Acute Assessment and Plan: Continue amiodarone. (7) Elevated troponin: Code(s): R77.8 - Other specified abnormalities of plasma proteins Status: Acute Assessment and Plan: Patient is not having any chest pain. Likely these are elevated in the setting of renal failure. Trend to peak. (8) Combined systolic and diastolic congestive heart failure: Code(s): I50.40 - Unspecified combined systolic (congestive) and diastolic (congestive) heart failure Status: Acute Assessment and Plan: Left pleural effusion noted on chest x-ray and he is now developing crackles thus will discontinue IV fluids. He is currently at his baseline oxygen requirement and does not seem in respiratory distress. Resume oral diuretics tomorrow. Subjective Date/time seen: 08/01/21 17:04 Chief Complaint: Shortness of breath. <Kiana Strong PA-C - Last Filed: 07/31/21 23:52> Narrative: HPI This is an 86-year-old male with chronic respiratory failure on 2 L nasal cannula, aortic stenosis status post TAVR, paroxysmal atrial fibrillation, coronary artery disease, peripheral arterial disease, type 2 diabetes, chronic kidney disease, hypertension, dyslipidemia, combined systolic and diastolic congestive heart failure, ulcerative colitis, and several other comorbidities who presented to the emergency department today via EMS fro
[2021-08-01 17:19] LABS: Glucose Point of Care 268 mg/dl (65-105)
[2021-08-01] MEDS: TERAZOSIN HCL 1 MG CAPSULE 2 MG PO (17:29)
[2021-08-01] MEDS: WARFARIN (*PBKC) 3 MG TABLET PO (17:31)
[2021-08-01] MEDS: AMPICILLIN SULB 3 GM/NS 100 ML 3 GM/100 ML VIAL IVPB (17:36)
[2021-08-01 21:06] LABS: Glucose Point of Care 417 mg/dl (65-105)
[2021-08-02] VITALS (18 sets, daily range): BP systolic 108–136; BP diastolic 43–89; PULSE 60–673; RESP 16–20; TEMP 36.2–36.6; O2SAT 92–94
[2021-08-02 00:06] LABS: Glucose Point of Care 355 mg/dl (65-105)
[2021-08-02] MEDS: INSULIN ASPART (*BKC) 100 UNITS/ML SUB-Q ×4 (01:08→16:36)
[2021-08-02] MEDS: ALBUTEROL SULFATE NEB 2.5 MG/0.5 ML INH 5 MG INHALATION ×3 (02:41→20:11)
[2021-08-02] MEDS: IPRATROPIUM BR 0.02% INH SOLN 0.5 MG/2.5 ML VIAL INHALATION ×3 (02:42→20:11)
[2021-08-02 05:31] LABS: Hematocrit 32.2 % (42.0-52.0); Hemoglobin 9.5 g/dL (14.0-18.0); Mean Corpuscular HGB Conc 29.5 g/dl (32-36); Mean Corpuscular Hemoglobin 27.2 pg (26-34); Mean Corpuscular Volume 92.3 fl (80-100); Platelet Count Result 260 k/mm3 (150-375); Red Blood Count 3.49 M/mm3 (4.6-6.20); Red Cell Distribution Width 18.2 % (11.5-14.5); White Blood Count 16.5 K/mm3 (4.5-10.0)
[2021-08-02 05:44] LABS: Anion Gap 7 mmol/L (8-16); Blood Urea Nitrogen 93 mg/dL (9-20); Calcium 8.7 mg/dL (8.4-10.2); Carbon Dioxide 28 mmol/L (22-30); Chloride 101 mmol/L (98-107); Estimated CRCL calculation 16 ml/min; Estimated Glomerular Filt Rate 17; Glucose 275 mg/dL (65-110); Magnesium 2.6 mg/dL (1.6-2.3); Potassium 3.8 mmol/L (3.4-5.0); Sodium 136 mmol/L (137-145)
[2021-08-02 05:50] LABS: INR 2.4; Prothrombin Time 25.8 Seconds (11.1-14.7)
[2021-08-02] MEDS: DORNASE ALFA INH SOLN 1 MG/ML 2.5 ML AMP 2.5 MG INHALATION ×2 (08:35→20:12)
[2021-08-02 08:52] LABS: Glucose Point of Care 275 mg/dl (65-105)
[2021-08-02] MEDS: POTASSIUM CHLORIDE 20 MEQ TABLET.ER 40 MEQ PO (09:14)
[2021-08-02] MEDS: glipiZIDE 5 MG TABLET PO (09:15)
[2021-08-02] MEDS: carvediloL 25 MG TABLET PO ×2 (09:15→16:31)
[2021-08-02] MEDS: metOLazone 5 MG TABLET PO (09:16)
[2021-08-02] MEDS: ISOSORBIDE MONONITRATE 30 MG TAB.ER.24H PO (09:16)
[2021-08-02] MEDS: FEBUXOSTAT 40 MG TABLET PO (09:16)
[2021-08-02] MEDS: GABAPENTIN 300 MG CAPSULE 600 MG PO ×2 (09:16→16:32)
[2021-08-02] MEDS: HYDROcodone/acetaminophen (*CRX) 10-325 MG TABLET 1 TAB PO ×2 (09:18→16:39)
[2021-08-02 12:28] LABS: Glucose Point of Care 331 mg/dl (65-105)
--- NOTE | 2021-08-02 14:37 | PM.IMPN ---
Progress Note: A&P Assessment and Plan (1) Pneumonia: Qualifiers: Laterality: left Lung location: unspecified part of lung Pneumonia type: due to unspecified organism Qualified Code(s): J18.9 - Pneumonia, unspecified organism Code(s): J18.9 - Pneumonia, unspecified organism Status: Acute Assessment and Plan: He has been started on azithromycin and ceftriaxone. Sputum to be attempted for culture. Urine to check for Legionella and strep pneumoniae antigens. Bedside swallow ordered to evaluate for possible dysphagia or concerns for aspiration. Schedule bronchodilators. Add Pulmozyme and Saman to help mobilize secretions. 08/01/2021 Interval history: patient presented with complaint of short suspect patient has pneumonia patient had a swallow study today suggested risk for aspiration patient is being treated with Rocephin and azithromycin will stop the Rocephin and start the patient on Unasyn to cover for anaerobic, upon arrival patient blood sugar was significantly elevated was a concern for DKA patient was started on insulin drip, insulin drip was stopped, patient blood sugars are trending down, patient currently on oral medication as well as sliding scale, will continue to monitor patient will have a PT OT evaluate and further recommendation to follow. 08/02/2021 Interval history: patient presented with complaint of short suspect patient has pneumonia patient had a swallow study on 08/01 suggested risk for aspiration patient was being treated with Rocephin and azithromycin stopped the Rocephin and started the patient on Unasyn to cover for anaerobic, will repeat chest x-ray tomorrow and reassess, upon arrival patient blood sugar was significantly elevated was a concern for DKA patient was started on insulin drip, insulin drip was stopped, patient blood sugars a still above 300, patient currently on Glucotrol 5 mg q.day will increase to 5 mg b.i.d., as well as sliding scale, will continue to monitor patient will have a PT OT evaluate and further recommendation to follow. (2) Severe hyperglycemia due to diabetes mellitus: Code(s): E11.65 - Type 2 diabetes mellitus with hyperglycemia Status: Acute Assessment and Plan: Started on insulin drip in the emergency department which has since been able to be discontinued. Continue basal insulin. Initiate sliding scale insulin, Accu-Cheks, and hypoglycemic protocol. Check A1c. (3) Acute hypokalemia: Code(s): E87.6 - Hypokalemia Status: Acute Assessment and Plan: Potassium will be replaced and monitored. (4) Acute renal failure superimposed on chronic kidney disease: Code(s): N17.9 - Acute kidney failure, unspecified; N18.9 - Chronic kidney disease, unspecified Status: Acute Assessment and Plan: His creatinine has varied widely over the years. He was hydrated in the ER given his severe hyperglycemia though will discontinue fluids at this time due to pleural effusion and crackles. (5) Chronic anticoagulation: Code(s): Z79.01 - retirement (current) use of anticoagulants Status: Acute Assessment and Plan: Continue warfarin. INR is therapeutic. (6) Paroxysmal atrial fibrillation: Code(s): I48.0 - Paroxysmal atrial fibrillation Status: Acute Assessment and Plan: Continue amiodarone. (7) Elevated troponin: Code(s): R77.8 - Other specified abnormalities of plasma proteins Status: Acute Assessment and Plan: Patient is not having any chest pain. Likely these are elevated in the setting of renal failure. Trend to peak. (8) Combined systolic and diastolic congestive heart failure: Code(s): I50.40 - Unspecified combined systolic (congestive) and diastolic (congestive) heart failure Status: Acute Assessment and Plan: Left pleural effusion noted on chest x-ray and he is now developing crackles thus will discontinue IV flui
--- NOTE | 2021-08-02 15:48 | PC.NURSE ---
This patient, Cipriano Garcia, was transferred to [[facility] ] on 08/02/21 at 1549. Personal belongings sent with patient. Report given to [Ivy ]. Appropriate documentation sent with patient.
[2021-08-02] MEDS: WARFARIN (*PBKC) 3 MG TABLET PO (16:32)
[2021-08-02 16:35] LABS: Glucose Point of Care 352 mg/dl (65-105)
[2021-08-02] MEDS: AMPICILLIN SULB 3 GM/NS 100 ML 3 GM/100 ML VIAL IVPB (18:49)
[2021-08-02] MEDS: TERAZOSIN HCL 1 MG CAPSULE 2 MG PO (18:49)
[2021-08-02 20:36] LABS: Glucose Point of Care 336 mg/dl (65-105)
[2021-08-02] MEDS: INSULIN ASPART (*BKC) 100 UNITS/ML 8 UNITS SUB-Q (23:13)
[2021-08-03] VITALS (12 sets, daily range): BP systolic 116–128; BP diastolic 41–52; PULSE 60–109; RESP 18–20; TEMP 36.4–36.5; O2SAT 91–93
[2021-08-03] MEDS: IPRATROPIUM BR 0.02% INH SOLN 0.5 MG/2.5 ML VIAL INHALATION ×4 (02:10→20:11)
[2021-08-03] MEDS: ALBUTEROL SULFATE NEB 2.5 MG/0.5 ML INH 5 MG INHALATION ×4 (02:10→20:11)
[2021-08-03 06:36] LABS: Hematocrit 34.1 % (42.0-52.0); Hemoglobin 9.9 g/dL (14.0-18.0); Mean Corpuscular Hemoglobin 26.8 pg (26-34); Mean Corpuscular Volume 92.2 fl (80-100); Mean Platelet Volume 10.8 fl (7.4-10.4); Platelet Count Result 268 k/mm3 (150-375); Red Cell Distribution Width 18.3 % (11.5-14.5); White Blood Count 16.4 K/mm3 (4.5-10.0)
[2021-08-03 06:50] LABS: Anion Gap 8 mmol/L (8-16); Blood Urea Nitrogen 102 mg/dL (9-20); Calcium 8.9 mg/dL (8.4-10.2); Carbon Dioxide 29 mmol/L (22-30); Chloride 101 mmol/L (98-107); Estimated CRCL calculation 14 ml/min; Estimated Glomerular Filt Rate 17; Glucose 298 mg/dL (65-110); Potassium 4.4 mmol/L (3.4-5.0); Sodium 138 mmol/L (137-145)
[2021-08-03 06:51] LABS: INR 2.7
[2021-08-03 07:40] LABS: Glucose Point of Care 259 mg/dl (65-105)
[2021-08-03] MEDS: glipiZIDE 5 MG TABLET PO (08:23)
[2021-08-03] MEDS: ISOSORBIDE MONONITRATE 30 MG TAB.ER.24H PO (08:24)
[2021-08-03] MEDS: GABAPENTIN 300 MG CAPSULE 600 MG PO ×2 (08:24→16:59)
[2021-08-03] MEDS: carvediloL 25 MG TABLET PO ×2 (08:24→17:00)
[2021-08-03] MEDS: FEBUXOSTAT 40 MG TABLET PO (08:24)
[2021-08-03] MEDS: POTASSIUM CHLORIDE 20 MEQ TABLET.ER 40 MEQ PO (08:24)
[2021-08-03] MEDS: metOLazone 5 MG TABLET PO (08:25)
[2021-08-03] MEDS: HYDROcodone/acetaminophen (*CRX) 10-325 MG TABLET 1 TAB PO ×2 (08:27→17:06)
[2021-08-03] MEDS: INSULIN ASPART (*BKC) 100 UNITS/ML SUB-Q ×3 (08:28→16:59)
[2021-08-03] MEDS: DORNASE ALFA INH SOLN 1 MG/ML 2.5 ML AMP 2.5 MG INHALATION ×2 (08:34→20:11)
--- NOTE | 2021-08-03 08:48 | PC.NURSE ---
Faxed initial DSMT and [facility].
--- NOTE | 2021-08-03 11:10 | PM.IMPN ---
Progress Note: A&P Assessment and Plan (1) Pneumonia: Qualifiers: Laterality: left Lung location: unspecified part of lung Pneumonia type: due to unspecified organism Qualified Code(s): J18.9 - Pneumonia, unspecified organism Code(s): J18.9 - Pneumonia, unspecified organism Status: Acute Assessment and Plan: He has been started on azithromycin and ceftriaxone. Sputum to be attempted for culture. Urine to check for Legionella and strep pneumoniae antigens. Bedside swallow ordered to evaluate for possible dysphagia or concerns for aspiration. Schedule bronchodilators. Add Pulmozyme and Saman to help mobilize secretions. 08/01/2021 Interval history: patient presented with complaint of short suspect patient has pneumonia patient had a swallow study today suggested risk for aspiration patient is being treated with Rocephin and azithromycin will stop the Rocephin and start the patient on Unasyn to cover for anaerobic, upon arrival patient blood sugar was significantly elevated was a concern for DKA patient was started on insulin drip, insulin drip was stopped, patient blood sugars are trending down, patient currently on oral medication as well as sliding scale, will continue to monitor patient will have a PT OT evaluate and further recommendation to follow. 08/02/2021 Interval history: patient presented with complaint of short suspect patient has pneumonia patient had a swallow study on 08/01 suggested risk for aspiration patient was being treated with Rocephin and azithromycin stopped the Rocephin and started the patient on Unasyn to cover for anaerobic, will repeat chest x-ray tomorrow and reassess, upon arrival patient blood sugar was significantly elevated was a concern for DKA patient was started on insulin drip, insulin drip was stopped, patient blood sugars a still above 300, patient currently on Glucotrol 5 mg q.day will increase to 5 mg b.i.d., as well as sliding scale, will continue to monitor patient will have a PT OT evaluate and further recommendation to follow. 08/03/2021: BNP 3600, strep ag and pneumophila ag pending. , covid neg. cxr wth left pleural effusion which is new. will repeat cxr today , leukocytosis persists, may need to tap if persistent effusion and leukocytosis. however inr is therpaeutic ad may need to hold for the tap to happen. echo 07/14: EF 25-30%, wall motion abnormality suggestiv eoflarge LAD distribution infarctio, mild conc LVH, anormal LV diastolic function, bioprosthetic aortic valve wellseated, no AR, RVSP 8+, echo prio wih e 3040$, with severe hypokinesis of the distal septal and lateral kaur and apex. Will consult Cardiology regard to his congestive heart failure management and worsening ejection fraction. Left pleural effusion with leukocytosis remains persistent and hence will need re-evaluation. If thoracentesis is planned may need to hold warfarin before we do that and for that reason I will have Cardiology on board as well. Will repeat chest x-ray today may need to order CT chest for further evaluation as well he is on Pulmozyme for his cough along with some bronchodilators. Already on Unasyn and azithromycin which provides good coverage for his underlying pneumonia. Swallow study reviewed and on a dysphagia diet currently. Hyperglycemic when presented in more than 500 with chronic kidney disease stage 4 I see no other option other than starting on basal insulin. He is already on glipizide which has been increased. Will add 16 units of Lantus from [employer] and monitor his Accu-Cheks. SGLT2 inhibitor is contraindicated due to his renal dysfunction as his GFR is 17. (2) Severe hyperglycemia due to diabetes mellitus: Code(s): E11.65 - Type 2 diabetes mellitus with hyperglycemia Status: Acute Assessment and Plan: blood sugar more than 500 o admission. Started on insulin drip in the emergency department which has since been able to be discontinued. Initiate sliding sc
--- NOTE | 2021-08-03 11:21 | PCNFU ---
Nutrition Follow-Up Complete: Increased protein needs related to wounds as evidenced by bilateral buttock pressure ulcer - deep tissue goal: Pt to meet 75% of estimated nutritional needs Patient is meeting goal. No new goal. Pt current nutrition is DBCC, Mildly Thick liquids, Level 2 Last recorded weight is 78.8 kg, down from 81 kg on admit. Bowel Motility:colostomy Labs Reviewed:Mg 3.0,Cr 3.4,BUN 102, Glu 298,Hct 34.1,Hgb 9.9 Meds Noted:NovoLog, Atrovent, Zaroxolyn, [place], KCL tablet Skin: Bilateral Buttock-Deep Tissue Additional Notes: Patient had MBS on 08/01-recommending mild thick liquids, Level 2. Oral Intake has been 100%. Diet supplements of Glucerna shakes are providing an additional 220 kcals and 10 gms protein. Agree with diet orders. Monitoring: Will monitor labs, medication, wt, and reported intake every 5 days
[2021-08-03 11:30] LABS: Glucose Point of Care 329 mg/dl (65-105)
--- NOTE | 2021-08-03 13:37 | PM.CNCAR ---
Assessment and Plan Assessment and plan (1) Paroxysmal atrial fibrillation: Code(s): I48.0 - Paroxysmal atrial fibrillation Status: Acute Assessment and Plan: Currently paced rhythm. Okay to hold warfarin temporarily if need be for thoracentesis. Would let his INR drift down rather than reversed with vitamin K (2) Combined systolic and diastolic congestive heart failure: Code(s): I50.40 - Unspecified combined systolic (congestive) and diastolic (congestive) heart failure Status: Acute Assessment and Plan: Seems to be on a good regimen at this point. I do recommend continuing his carvedilol, daily Bumex and metolazone. Follow renal function reduce as need be. He will likely need his metolazone reduced to at least every other day. He obviously has cardiorenal syndrome and delicate balance between heart failure and renal failure. Will resume hydralazine but at a lower dose 25 mg p.o. t.i.d. and up titrate as need be. Continue isosorbide. (3) Chronic anticoagulation: Code(s): Z79.01 - dopeman (current) use of anticoagulants Status: Acute Assessment and Plan: As detailed above. Continue warfarin unless thoracentesis needed then temporarily hold (4) Acute renal failure superimposed on chronic kidney disease: Code(s): N17.9 - Acute kidney failure, unspecified; N18.9 - Chronic kidney disease, unspecified Status: Acute Assessment and Plan: Improving (5) S/P TAVR (transcatheter aortic valve replacement): Code(s): Z95.2 - Presence of prosthetic heart valve Status: Acute Assessment and Plan: Functioning normally by echocardiogram last month History of Present Illness History of Present Illness Consult date/time: 08/03/21 13:37 Requesting physician: Milan Leon MD Consult reason: congestive heart failure Reason For Visit: Pneumonia,Severe hyperglycemia,CHF,COPD Narrative: Date of service 08/03/2021 Requesting provider: Reason for consultation: CHF History patient is an 86-year-old male with a complex medical history. He follows with Dr. Oliveira as an outpatient. Cardiology consultation was requested because of history CHF as well as assisting with warfarin management pending thoracentesis. Is a history of chronic respiratory failure on chronic 2 L nasal cannula of oxygen. He also is status post TAVR, paroxysmal atrial fibrillation, pacemaker implantation, coronary artery disease, peripheral artery disease, CKD, hypertension hyperlipidemia, combined heart failure, recent pneumonia. Admitted to [facility] earlier this year with pneumonia. His medications were completely rearranging he was noted to be orthostatic. His carvedilol to as a Daivd and metolazone were stopped and he was started on midodrine. Bumex was switched to only Friday and Friday. Patient had been doing okay but more recently had been developing worsening shortness of breath as well as a cough. His oxygen levels were only in the 80s recently when home health visit him and his sugars were greater than 500 and he was brought to the hospital for further workup and evaluation. He was started on insulin drip. He was noted to have a moderate-sized left pleural effusion and otherwise from a cardiac perspective has been feeling relatively okay. He has little bit of swelling in his legs which is not new or different. He has some chest pain related to coughing but no other chest pain. Does have some dyspnea with exertion. No syncope, presyncope, paroxysmal nocturnal dyspnea orthopnea. Review of Systems Review of Systems: All systems reviewed & are unremarkable except as noted in HPI and below Constitutional: Constitutional: Reports weakness Eyes: Eyes: Denies blurry vision ENT: Reports Normal hearing present Cardiovascular: Cardiovascular: Denies chest pain and Reports leg edema Respiratory: Respiratory: Reports cough and Reports dyspnea o
[2021-08-03 16:47] LABS: Glucose Point of Care 265 mg/dl (65-105)
[2021-08-03] MEDS: AMPICILLIN SULB 3 GM/NS 100 ML 3 GM/100 ML VIAL IVPB (16:57)
[2021-08-03] MEDS: WARFARIN (*PBKC) 3 MG TABLET PO (16:59)
[2021-08-03] MEDS: TERAZOSIN HCL 1 MG CAPSULE 2 MG PO (17:00)
[2021-08-03] MEDS: hydrALAZINE HCL 25 MG TABLET PO (17:00)
[2021-08-03 20:16] LABS: Glucose Point of Care 372 mg/dl (65-105)
[2021-08-03] MEDS: INSULIN GLARGINE (*BKC) 100 UNITS/ML 16 UNITS SUB-Q (21:27)
[2021-08-04] VITALS (9 sets, daily range): BP systolic 122–127; BP diastolic 43–82; PULSE 59–74; RESP 18–22; TEMP 35.5–36.2; O2SAT 90–93
[2021-08-04] MEDS: HYDROcodone/acetaminophen (*CRX) 10-325 MG TABLET 1 TAB PO ×2 (02:22→13:48)
[2021-08-04] MEDS: IPRATROPIUM BR 0.02% INH SOLN 0.5 MG/2.5 ML VIAL INHALATION ×4 (05:29→19:53)
[2021-08-04] MEDS: ALBUTEROL SULFATE NEB 2.5 MG/0.5 ML INH 5 MG INHALATION ×4 (05:29→19:53)
[2021-08-04 05:56] LABS: Hematocrit 32.4 % (42.0-52.0); Hemoglobin 9.4 g/dL (14.0-18.0); Mean Corpuscular Hemoglobin 26.7 pg (26-34); Mean Platelet Volume 10.9 fl (7.4-10.4); Platelet Count Result 276 k/mm3 (150-375); Red Blood Count 3.52 M/mm3 (4.6-6.20); White Blood Count 17.6 K/mm3 (4.5-10.0)
[2021-08-04 06:02] LABS: INR 2.7; Prothrombin Time 27.9 Seconds (11.1-14.7)
[2021-08-04 06:07] LABS: Anion Gap 2 mmol/L (8-16); Blood Urea Nitrogen 101 mg/dL (9-20); Calcium 8.6 mg/dL (8.4-10.2); Carbon Dioxide 29 mmol/L (22-30); Chloride 107 mmol/L (98-107); Estimated CRCL calculation 14 ml/min; Estimated Glomerular Filt Rate 17; Glucose 167 mg/dL (65-110); Magnesium 2.9 mg/dL (1.6-2.3); Potassium 4.3 mmol/L (3.4-5.0); Sodium 138 mmol/L (137-145)
[2021-08-04 08:10] LABS: Glucose Point of Care 128 mg/dl (65-105)
[2021-08-04] MEDS: carvediloL 25 MG TABLET PO ×2 (08:15→18:13)
[2021-08-04] MEDS: BUMETANIDE 1 MG TABLET PO (08:15)
[2021-08-04] MEDS: ISOSORBIDE MONONITRATE 30 MG TAB.ER.24H PO (08:15)
[2021-08-04] MEDS: metOLazone 5 MG TABLET PO (08:15)
[2021-08-04] MEDS: hydrALAZINE HCL 25 MG TABLET PO ×3 (08:15→18:13)
[2021-08-04] MEDS: GABAPENTIN 300 MG CAPSULE 600 MG PO ×2 (08:15→18:13)
[2021-08-04] MEDS: glipiZIDE 5 MG TABLET PO (08:15)
[2021-08-04] MEDS: POTASSIUM CHLORIDE 20 MEQ TABLET.ER 40 MEQ PO (08:16)
[2021-08-04] MEDS: FEBUXOSTAT 40 MG TABLET PO (08:16)
[2021-08-04] MEDS: DORNASE ALFA INH SOLN 1 MG/ML 2.5 ML AMP 2.5 MG INHALATION ×2 (10:15→19:53)
[2021-08-04 11:56] LABS: Glucose Point of Care 155 mg/dl (65-105)
[2021-08-04 16:29] LABS: Glucose Point of Care 217 mg/dl (65-105)
--- NOTE | 2021-08-04 17:01 | PM.PNCARD ---
Progress Note: A&P Assessment and Plan (1) Pneumonia: Code(s): J18.9 - Pneumonia, unspecified organism Status: Acute (2) Combined systolic and diastolic congestive heart failure: Code(s): I50.40 - Unspecified combined systolic (congestive) and diastolic (congestive) heart failure Status: Acute Assessment and Plan: Cardiomyopathy with ejection fraction of 25-30%. Seems to be on a good regimen at this point. Has been diuresing. Does not appear volume overloaded at this time. He obviously has cardiorenal syndrome and delicate balance between heart failure and renal failure. Continue his carvedilol, daily Bumex Will resume hydralazine but at a lower dose 25 mg p.o. t.i.d. and up titrate as need be. Continue isosorbide. Will reduce metolazone to Wednesdays and Fridays. (3) Persistent atrial fibrillation: Code(s): I48.19 - Other persistent atrial fibrillation Status: Acute Assessment and Plan: Had a biventricular pacemaker placed in May and AV node ablation in June. Currently paced rhythm. Holding warfarin temporarily for thoracentesis, which I think will be of benefit. Would let his INR drift down rather than reversed with vitamin K (4) Chronic anticoagulation: Code(s): Z79.01 - assisted (current) use of anticoagulants Status: Acute Assessment and Plan: On hold for thoracentesis. (5) Acute renal failure superimposed on chronic kidney disease: Code(s): N17.9 - Acute kidney failure, unspecified; N18.9 - Chronic kidney disease, unspecified Status: Acute Assessment and Plan: BUN is up to 100 but creatinine is stable, perhaps little better. (6) S/P TAVR (transcatheter aortic valve replacement): Code(s): Z95.2 - Presence of prosthetic heart valve Status: Acute Assessment and Plan: Functioning normally by echocardiogram last month (7) Status post biventricular pacemaker: Code(s): Z95.0 - Presence of cardiac pacemaker Status: Acute Subjective Date/time seen: 08/04/21 17:01 Interval history: Follow-up for recurrent heart failure, cardiomyopathy, pleural effusion, CKD, pneumonia. History of TAVR in 2019, Echo EF 25-30% June 2021, TAVR valve looked normal. Diastolic dysfunction and LVH. Mr. Garcia had a biventricular pacemaker implanted on May [address] Burciaga at [facility]. Was readmitted to [facility] on June 29 with pneumonia, low blood pressure, chronic kidney problems, and orthostasis. Many medications were discontinued. As the pt's a fib was hard to control, he underwent an AV node ablation on July 18, 2021 and his amiodarone has been discontinued. Was BiV pacing 99% when last checked. 08/03/2021: Continue carvedilol, Bumex, metolazone. Okay to hold warfarin for thoracentesis. Date of service 08/04/2021: Still with a congested cough. However he did walk for 60 ft with physical therapy. Was dyspneic at the and and had an O2 sat of 88% which rapidly improved. No dizziness. Remains on 5 L. Diuresing. Review of Systems Constitutional: Constitutional: Reports fatigue Eyes: Eyes: Reports no additional eye complaints ENT: Denies epistaxis Cardiovascular: Cardiovascular: Denies chest pain, Denies pedal edema, Denies leg edema, Denies lightheadedness and Denies palpitations Respiratory: Respiratory: Reports chest congestion, Reports cough, Reports dyspnea and Reports dyspnea on exertion Gastrointestinal: Gastrointestinal: Denies abdominal pain Genitourinary: Genitourinary: Denies dysuria Musculoskeletal: Musculoskeletal: Reports no additional musculoskeletal complaints Integumentary/Breasts: Skin/Breast: Denies rash Neurologic: Reports system reviewed and no additional complaints, except as documented Psychiatric: Psychiatric: Reports no additional psychiatric complaints Exam Narrative: Very pleasant, polite and apprec
[2021-08-04] MEDS: INSULIN ASPART (*BKC) 100 UNITS/ML SUB-Q (18:15)
[2021-08-04] MEDS: AMPICILLIN SULB 3 GM/NS 100 ML 3 GM/100 ML VIAL IVPB (18:17)
[2021-08-04] MEDS: TERAZOSIN HCL 1 MG CAPSULE 2 MG PO (18:18)
[2021-08-04 18:26] LABS: Pneumococcal Antigen Urine Not Detected (Not Detected)
[2021-08-04] MEDS: INSULIN GLARGINE (*BKC) 100 UNITS/ML 16 UNITS SUB-Q (19:59)
[2021-08-04 20:01] LABS: Glucose Point of Care 341 mg/dl (65-105)
[2021-08-05] VITALS (15 sets, daily range): BP systolic 106–128; BP diastolic 41–51; PULSE 59–87; RESP 16–22; TEMP 35.6–36.7; O2SAT 84–97
[2021-08-05] MEDS: IPRATROPIUM BR 0.02% INH SOLN 0.5 MG/2.5 ML VIAL INHALATION ×4 (01:26→19:50)
[2021-08-05] MEDS: ALBUTEROL SULFATE NEB 2.5 MG/0.5 ML INH 5 MG INHALATION ×4 (01:26→19:50)
[2021-08-05 05:42] LABS: Hematocrit 31.6 % (42.0-52.0); Hemoglobin 9.4 g/dL (14.0-18.0); Mean Corpuscular HGB Conc 29.7 g/dl (32-36); Mean Corpuscular Hemoglobin 27.3 pg (26-34); Mean Corpuscular Volume 91.9 fl (80-100); Mean Platelet Volume 10.8 fl (7.4-10.4); Platelet Count Result 276 k/mm3 (150-375); Red Blood Count 3.44 M/mm3 (4.6-6.20); Red Cell Distribution Width 18.3 % (11.5-14.5); White Blood Count 19.2 K/mm3 (4.5-10.0)
[2021-08-05 05:49] LABS: INR 2.4; Prothrombin Time 25.4 Seconds (11.1-14.7)
[2021-08-05 05:50] LABS: Anion Gap 6 mmol/L (8-16); Blood Urea Nitrogen 97 mg/dL (9-20); Calcium 8.5 mg/dL (8.4-10.2); Carbon Dioxide 27 mmol/L (22-30); Chloride 110 mmol/L (98-107); Estimated CRCL calculation 14 ml/min; Estimated Glomerular Filt Rate 18; Glucose 112 mg/dL (65-110); Potassium 4.5 mmol/L (3.4-5.0); Sodium 143 mmol/L (137-145)
[2021-08-05 08:02] LABS: Glucose Point of Care 103 mg/dl (65-105)
[2021-08-05] MEDS: BUMETANIDE 1 MG TABLET PO (08:06)
[2021-08-05] MEDS: ISOSORBIDE MONONITRATE 30 MG TAB.ER.24H PO (08:06)
[2021-08-05] MEDS: hydrALAZINE HCL 25 MG TABLET PO ×3 (08:06→16:50)
[2021-08-05] MEDS: carvediloL 25 MG TABLET PO ×2 (08:06→16:49)
[2021-08-05] MEDS: HYDROcodone/acetaminophen (*CRX) 10-325 MG TABLET 1 TAB PO ×2 (08:06→23:16)
[2021-08-05] MEDS: glipiZIDE 5 MG TABLET PO (08:07)
[2021-08-05] MEDS: GABAPENTIN 300 MG CAPSULE 600 MG PO ×2 (08:07→16:49)
[2021-08-05] MEDS: POTASSIUM CHLORIDE 20 MEQ TABLET.ER 40 MEQ PO (08:07)
[2021-08-05] MEDS: FEBUXOSTAT 40 MG TABLET PO (08:07)
[2021-08-05] MEDS: DORNASE ALFA INH SOLN 1 MG/ML 2.5 ML AMP 2.5 MG INHALATION ×2 (08:19→19:49)
[2021-08-05] MEDS: INSULIN ASPART (*BKC) 100 UNITS/ML SUB-Q ×2 (11:45→16:50)
[2021-08-05 11:49] LABS: Glucose Point of Care 229 mg/dl (65-105)
--- NOTE | 2021-08-05 14:53 | PM.PNCARD ---
Progress Note: A&P Assessment and Plan (1) Pneumonia: Code(s): J18.9 - Pneumonia, unspecified organism Status: Acute Assessment and Plan: Treatment per hospitalist. (2) Combined systolic and diastolic congestive heart failure: Code(s): I50.40 - Unspecified combined systolic (congestive) and diastolic (congestive) heart failure Status: Acute Assessment and Plan: Cardiomyopathy with ejection fraction of 25-30%. Seems to be on a good regimen at this point. Has been diuresing. Does not appear volume overloaded at this time. He obviously has cardiorenal syndrome and delicate balance between heart failure and renal failure. Continue his carvedilol, daily Bumex Resumed hydralazine but at a lower dose 25 mg p.o. t.i.d. and up titrate as need be. Continue isosorbide. Reduced metolazone to Wednesdays and Fridays. (3) Persistent atrial fibrillation: Code(s): I48.19 - Other persistent atrial fibrillation Status: Acute Assessment and Plan: Had a biventricular pacemaker placed in May and AV node ablation in June. Currently paced rhythm. Holding warfarin temporarily for thoracentesis, which I think willl be of benefit. Would let his INR drift down rather than reversed with vitamin K (4) Chronic anticoagulation: Code(s): Z79.01 - custodial (current) use of anticoagulants Status: Acute Assessment and Plan: On hold for thoracentesis. INR slowly drifting down, 2.4 today. (5) Acute renal failure superimposed on chronic kidney disease: Code(s): N17.9 - Acute kidney failure, unspecified; N18.9 - Chronic kidney disease, unspecified Status: Acute Assessment and Plan: BUN is up to 95-100 but creatinine is stable, perhaps little better. (6) S/P TAVR (transcatheter aortic valve replacement): Code(s): Z95.2 - Presence of prosthetic heart valve Status: Acute Assessment and Plan: Functioning normally by echocardiogram last month (7) Status post biventricular pacemaker: Code(s): Z95.0 - Presence of cardiac pacemaker Status: Acute Assessment and Plan: Was by ventricularly pacing consistently when last checked. Subjective Date/time seen: 08/05/21 14:53 Interval history: Follow-up for recurrent heart failure, cardiomyopathy, pleural effusion, CKD, pneumonia. History of TAVR in 2019, Echo EF 25-30% June 2021, TAVR valve looked normal. Diastolic dysfunction and LVH. Mr. Garcia had a biventricular pacemaker implanted on May [address] Burciaga at [facility]. Was readmitted to [facility] on June 29 with pneumonia, low blood pressure, chronic kidney problems, and orthostasis. Many medications were discontinued. As the pt's a fib was hard to control, he underwent an AV node ablation on July 18, 2021 and his amiodarone has been discontinued. Was BiV pacing 99% when last checked. 08/03/2021: Continue carvedilol, Bumex, metolazone. Okay to hold warfarin for thoracentesis. 08/04/2021: Still with a congested cough. However he did walk for 60 ft with physical therapy. Was dyspneic at the and and had an O2 sat of 88% which rapidly improved. No dizziness. Remains on 5 L. Diuresing. Date of service 08/05/2021: Still w/ congested cough. Again walked 60 ft w/ Ph Tx, no desaturation, but did not feel as well today. Remains on 5 L. no dizziness or chest pain. Wonders if he should go into assisted living. Has not seen Dr. Pascual for a long time because he has been in the hospital so much. Review of Systems Constitutional: Constitutional: Reports fatigue Eyes: Eyes: Reports no additional eye complaints ENT: Denies epistaxis Cardiovascular: Cardiovascular: Denies chest pain, Denies pedal edema, Denies leg edema, Denies lightheadedness, Denies palpitations, Reports dyspnea and Reports dyspnea on exertion Respiratory: Respiratory: Reports chest congestion, R
[2021-08-05 16:45] LABS: Glucose Point of Care 320 mg/dl (65-105)
[2021-08-05] MEDS: TERAZOSIN HCL 1 MG CAPSULE 2 MG PO (16:49)
[2021-08-05] MEDS: AMPICILLIN SULB 3 GM/NS 100 ML 3 GM/100 ML VIAL IVPB (16:59)
[2021-08-05] MEDS: INSULIN GLARGINE (*BKC) 100 UNITS/ML 16 UNITS SUB-Q (20:06)
[2021-08-05] MEDS: INSULIN ASPART (*BKC) 100 UNITS/ML 6 UNITS SUB-Q (20:13)
[2021-08-05 20:19] LABS: Glucose Point of Care 481 mg/dl (65-105)
[2021-08-05 23:17] LABS: Legionella pneumophila Ag Ur Not Detected (Not Detected)
[2021-08-06] VITALS (20 sets, daily range): BP systolic 123–138; BP diastolic 39–55; PULSE 63–80; RESP 16–22; TEMP 36.1–36.7; O2SAT 90–97
[2021-08-06] MEDS: IPRATROPIUM BR 0.02% INH SOLN 0.5 MG/2.5 ML VIAL INHALATION ×4 (02:06→20:12)
[2021-08-06] MEDS: ALBUTEROL SULFATE NEB 2.5 MG/0.5 ML INH 5 MG INHALATION ×4 (02:06→20:11)
[2021-08-06 06:36] LABS: Hematocrit 31.7 % (42.0-52.0); Hemoglobin 9.3 g/dL (14.0-18.0); Mean Corpuscular HGB Conc 29.3 g/dl (32-36); Mean Corpuscular Hemoglobin 27.5 pg (26-34); Mean Corpuscular Volume 93.8 fl (80-100); Mean Platelet Volume 10.8 fl (7.4-10.4); Platelet Count Result 271 k/mm3 (150-375); Red Blood Count 3.38 M/mm3 (4.6-6.20); Red Cell Distribution Width 18.5 % (11.5-14.5); White Blood Count 18.9 K/mm3 (4.5-10.0)
[2021-08-06 06:48] LABS: Anion Gap 9 mmol/L (8-16); Blood Urea Nitrogen 98 mg/dL (9-20); Calcium 8.4 mg/dL (8.4-10.2); Carbon Dioxide 26 mmol/L (22-30); Chloride 106 mmol/L (98-107); Estimated CRCL calculation 16 ml/min; Estimated Glomerular Filt Rate 20; Glucose 127 mg/dL (65-110); Magnesium 2.9 mg/dL (1.6-2.3); Potassium 4.4 mmol/L (3.4-5.0); Sodium 141 mmol/L (137-145)
[2021-08-06 06:53] LABS: INR 1.9
[2021-08-06 07:30] LABS: Glucose Point of Care 116 mg/dl (65-105)
[2021-08-06] MEDS: carvediloL 25 MG TABLET PO ×2 (08:22→16:10)
[2021-08-06] MEDS: ISOSORBIDE MONONITRATE 30 MG TAB.ER.24H PO (08:22)
[2021-08-06] MEDS: FEBUXOSTAT 40 MG TABLET PO (08:22)
[2021-08-06] MEDS: metOLazone 5 MG TABLET PO (08:22)
[2021-08-06] MEDS: POTASSIUM CHLORIDE 20 MEQ TABLET.ER 40 MEQ PO (08:22)
[2021-08-06] MEDS: GABAPENTIN 300 MG CAPSULE 600 MG PO ×2 (08:22→16:10)
[2021-08-06] MEDS: glipiZIDE 5 MG TABLET PO (08:22)
[2021-08-06] MEDS: hydrALAZINE HCL 25 MG TABLET PO ×3 (08:22→16:10)
[2021-08-06] MEDS: BUMETANIDE 1 MG TABLET PO (08:22)
[2021-08-06] MEDS: DORNASE ALFA INH SOLN 1 MG/ML 2.5 ML AMP 2.5 MG INHALATION ×2 (08:51→20:12)
[2021-08-06 11:26] LABS: SARS-CoV-2 RNA PCR Negative
[2021-08-06 11:47] LABS: Glucose Point of Care > 500 mg/dl (65-105)
[2021-08-06 12:28] LABS: Glucose Point of Care 273 mg/dl (65-105)
--- NOTE | 2021-08-06 13:19 | PM.PNCARD ---
Progress Note: A&P Assessment and Plan (1) Combined systolic and diastolic congestive heart failure: Code(s): I50.40 - Unspecified combined systolic (congestive) and diastolic (congestive) heart failure Status: Acute Assessment and Plan: Cardiomyopathy with ejection fraction of 25-30%. Has been diuresing. Does not appear significantly volume overloaded at this time. He has cardiorenal syndrome and delicate balance between heart failure and renal failure. Continue Carvedilol, daily Bumex 1mg po. Resumed hydralazine but at a lower dose 25 mg p.o. t.i.d. and up titrate as need be. Continue isosorbide 30mg daily Continue Metolazone Wednesdays and Fridays. (2) Persistent atrial fibrillation: Code(s): I48.19 - Other persistent atrial fibrillation Status: Acute Assessment and Plan: s/p biventricular pacemaker placed in May and AV node ablation in June. Currently paced rhythm. Holding warfarin temporarily for thoracentesis. Would let his INR drift down rather than reversed with vitamin K (3) Pneumonia: Code(s): J18.9 - Pneumonia, unspecified organism Status: Acute Assessment and Plan: Treatment per hospitalist. IV ABx. (4) Acute renal failure superimposed on chronic kidney disease: Code(s): N17.9 - Acute kidney failure, unspecified; N18.9 - Chronic kidney disease, unspecified Status: Acute Assessment and Plan: BUN 98 Cr slightly improved at 3.0. Remains a significant issue. (5) S/P TAVR (transcatheter aortic valve replacement): Code(s): Z95.2 - Presence of prosthetic heart valve Status: Acute Assessment and Plan: Functioning normally by echocardiogram recently (6) Status post biventricular pacemaker: Code(s): Z95.0 - Presence of cardiac pacemaker Status: Acute Assessment and Plan: Normal function and appropriate biventricular pacing when last checked. (7) Chronic anticoagulation: Code(s): Z79.01 - residential (current) use of anticoagulants Status: Acute Assessment and Plan: On hold for thoracentesis, possibly tomorrow. INR slowly drifting down, 1.9 today, Radiology requires <1.7. Subjective Date/time seen: Date of service: 08/06/21 13:19 Interval history: Follow-up for recurrent heart failure, cardiomyopathy, pleural effusion, CKD, pneumonia. History of TAVR in 2019, Echo EF 25-30% June 2021, TAVR valve looked normal. Diastolic dysfunction and LVH. Mr. Garcia had a biventricular pacemaker implanted on May [address] Burciaga at [facility]. Was readmitted to [facility] on June 29 with pneumonia, low blood pressure, chronic kidney problems, and orthostasis. Many medications were discontinued. As the pt's a fib was hard to control, he underwent an AV node ablation on July 18, 2021 and his amiodarone has been discontinued. Was BiV pacing 99% when last checked. 08/03/2021: Continue carvedilol, Bumex, metolazone. Okay to hold warfarin for thoracentesis. 08/04/2021: Still with a congested cough. However he did walk for 60 ft with physical therapy. Was dyspneic at the and and had an O2 sat of 88% which rapidly improved. No dizziness. Remains on 5 L. Diuresing. 08/05/2021: Still w/ congested cough. Again walked 60 ft w/ Ph Tx, no desaturation, but did not feel as well today. Remains on 5 L. no dizziness or chest pain. Wonders if he should go into assisted living. Has not seen Dr. Pascual for a long time because he has been in the hospital so much. 08/06/21 cough improved but still present. Remains on high-flow nasal cannula which was increased overnight sinus 13 L but able to be reduced partially earlier this morning. Lying supine in bed. Denies significant shortness of breath presently, no chest pain, palpitations. Remains on IV antibiotics. Review of Systems Review of Systems: All systems reviewed & are unremarkable except
[2021-08-06 13:41] LABS: Glucose 264 mg/dL (65-110)
--- NOTE | 2021-08-06 13:51 | PC.NURSE ---
Velvet with speech therapy requested we put the patient on a moderately thickened liquid diet to allow for ice to be mixed in drink.
[2021-08-06] MEDS: INSULIN ASPART (*BKC) 100 UNITS/ML SUB-Q (13:54)
[2021-08-06] MEDS: HYDROcodone/acetaminophen (*CRX) 10-325 MG TABLET 1 TAB PO (16:22)
[2021-08-06 16:33] LABS: Glucose Point of Care 164 mg/dl (65-105)
[2021-08-06] MEDS: TERAZOSIN HCL 1 MG CAPSULE 2 MG PO (17:00)
[2021-08-06] MEDS: AMPICILLIN SULB 3 GM/NS 100 ML 3 GM/100 ML VIAL IVPB (17:00)
[2021-08-06] MEDS: INSULIN GLARGINE (*BKC) 100 UNITS/ML 16 UNITS SUB-Q (20:28)
[2021-08-06 20:31] LABS: Glucose Point of Care 233 mg/dl (65-105)
[2021-08-06 22:01] LABS: Glucose Point of Care 192 mg/dl (65-105)
[2021-08-07] VITALS (17 sets, daily range): BP systolic 100–151; BP diastolic 53–90; PULSE 60–88; RESP 17–22; TEMP 36.3–36.6; O2SAT 90–100
[2021-08-07] MEDS: IPRATROPIUM BR 0.02% INH SOLN 0.5 MG/2.5 ML VIAL INHALATION ×4 (02:02→19:54)
[2021-08-07] MEDS: ALBUTEROL SULFATE NEB 2.5 MG/0.5 ML INH 5 MG INHALATION ×4 (02:02→19:54)
[2021-08-07 06:02] LABS: Hematocrit 31.2 % (42.0-52.0); Mean Corpuscular HGB Conc 28.8 g/dl (32-36); Mean Corpuscular Hemoglobin 27.2 pg (26-34); Mean Corpuscular Volume 94.3 fl (80-100); Mean Platelet Volume 10.8 fl (7.4-10.4); Platelet Count Result 268 k/mm3 (150-375); Red Blood Count 3.31 M/mm3 (4.6-6.20); Red Cell Distribution Width 18.2 % (11.5-14.5); White Blood Count 16.5 K/mm3 (4.5-10.0)
[2021-08-07] MEDS: glipiZIDE 5 MG TABLET PO (06:07)
[2021-08-07 06:11] LABS: INR 1.7; Prothrombin Time 19.4 Seconds (11.1-14.7)
[2021-08-07 06:15] LABS: Anion Gap 5 mmol/L (8-16); Blood Urea Nitrogen 88 mg/dL (9-20); Calcium 7.9 mg/dL (8.4-10.2); Carbon Dioxide 26 mmol/L (22-30); Chloride 109 mmol/L (98-107); Estimated CRCL calculation 15 ml/min; Estimated Glomerular Filt Rate 19; Glucose 77 mg/dL (65-110); Magnesium 2.7 mg/dL (1.6-2.3); Potassium 4.2 mmol/L (3.4-5.0); Sodium 140 mmol/L (137-145)
[2021-08-07 08:07] LABS: Glucose Point of Care 67 mg/dl (65-105)
[2021-08-07] MEDS: DORNASE ALFA INH SOLN 1 MG/ML 2.5 ML AMP 2.5 MG INHALATION ×2 (08:07→19:54)
[2021-08-07] MEDS: DEXTROSE 50% 25 GM/50 ML SYRINGE IV PUSH (08:11)
[2021-08-07 08:38] LABS: Glucose Point of Care 124 mg/dl (65-105)
[2021-08-07] MEDS: carvediloL 25 MG TABLET PO ×2 (08:49→17:15)
[2021-08-07] MEDS: HYDROcodone/acetaminophen (*CRX) 10-325 MG TABLET 1 TAB PO ×2 (08:55→17:20)
--- NOTE | 2021-08-07 11:24 | PCSTNOTE ---
The patient treatment was not able to be completed on 08/07/21 due to patient being transferred to a scheduled procedure. Will plan to continue treatment per plan of care.
[2021-08-07 12:14] LABS: Glucose Point of Care 70 mg/dl (65-105)
--- NOTE | 2021-08-07 12:31 | WPDNEURCNPN ---
Assessment and Plan Additional Plan essential tremor because the cannot try the primidone I will try the Sinemet for the time being and observe the response the response Consult date: 08/07/21 HPI: Cipriano Garcia is a 86 year old male admitted to the hospital for the complaints of difficulties in breathing in addition to the history of chronic respiratory failure on 2L nasal cannula oxygen, aortic stenosis with a history of TAVR, paroxysmal atrial fibrillation, coronary artery disease, peripheral arterial disease, type 2 diabetes mellitus, chronic renal disease, hypertension, dyslipidemia, and combined systolic and diastolic congestive heart failure, ulcerative colitis, and several other comorbidities. Patient additionally he has the history of abdominal aortic aneurysm is status post TAVR, arthritis, chronic anticoagulation therapy, diabetes mellitus with neuropathy, and essential tremor neuro consultation was obtained mainly because the gross essential tremors for which we had called to start him on the primidone but because of cost interaction with other medication it was not started and on today's visit he gives no history of nausea vomiting blood in stool black stool hx of cough andshortness of breath. MRI of the brain done at the other facility revealed him to have no acute infarct or intracranial mass lesion except the incidental finding of 3 oval rounded lesion in the left side of the neck especially parotid gland and routine lab studies with leukocytosis hemoglobin of 9.0, INR of 1.7, BMP with BUN of 88 creatinine of 3.10 and GFR only 19, normal UA serology for SARS-CoV-2 COVID negative and medications including gabapentin 600 mg b.i.d. Review of Systems Review of Systems: All systems reviewed & are unremarkable except as noted in HPI and below PMFSH Past Medical History Medical History Abdominal aortic aneurysm Anemia in chronic kidney disease Aortic valve stenosis, acquired Status post TAVR. Arthritis Atherosclerosis of pala coronary artery of pala heart Chronic anticoagulation Chronic atrial fibrillation, unspecified Chronic kidney disease, stage 4 (severe) Baseline creatinine is around 2.90. 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 Diabetic peripheral neuropathy Dyslipidemia Essential tremor Gout Hypertension, essential Nephrolithiasis Paroxysmal atrial fibrillation (12/21/18) Being evaluated for possible ablation. Peripheral vascular disease of lower extremity Persistent atrial fibrillation Polymyalgia rheumatica Type 2 diabetes mellitus Ulcerative colitis Surgical History Surgical History History of cardiac catheterization History of cataract extraction History of colonoscopy with polypectomy History of heart artery stent History of partial colectomy History of transcatheter aortic valve replacement (TAVR) (04/2020) History of umbilical hernia repair History of vascular surgery Multiple lower extremity stents and femoral popliteal bypass. Four and 1 leg and 5 in the other. Status post biventricular pacemaker [employer] biventricular pacemaker 05/2021 AV node ablation June/[address] Beltran at [facility] Family History Family History Sibling Patient's sister is in good health Father Family history of malignant neoplasm of bone Family history of malignant neoplasm Patient's father is , Onset Age: 60 Metastatic bone cancer Mother Family history of coronary artery disease STEMI (ST elevation myocardial infarction) Hypertension Other Family history of arthritis Social History Social History (Reviewed 08/07/21 @ 12:39 by Nino
--- NOTE | 2021-08-07 13:20 | P.CDI_ITS ---
CDI Query Clarification Request -Pneumonia, Bedside swallow ordered to evaluate for possible dysphagia or concerns for aspiration and patient had a swallow study on 08/01 suggested risk for aspiration patient was being treated with Rocephin and azithromycin stopped the Rocephin and started the patient on Unasyn to cover for anaerobic documented -08/01 MBS recommended mildly thick (2) liquids and on a dysphagia diet currently has been documented Please clarify if there is a cause and effect relationship between the dysphagia/risk for aspiration and the pneumonia. * <Candida Marrero RN - Last Filed: 08/07/21 13:28> Clarified Diagnosis (1) Aspiration pneumonia: Code(s): J69.0 - Pneumonitis due to inhalation of food and vomit <Candida Marrero RN - Last Filed: 08/07/21 13:28> Status: Acute <Candida Marrero RN - Last Filed: 08/07/21 13:28> Assessment and Plan: most likely patient had a aspiration pneumo secondary to dysphagia and was treated with Unasyn <Doc Jensen MD - Last Filed: 08/25/21 14:43>
--- NOTE | 2021-08-07 13:29 | PC.NURSE ---
On 08/07/21, the student, Chinyere Potts, provided care and completed [facility] documentation on this patient. I have reviewed the student's documentation and agree with the findings.
[2021-08-07 13:40] LABS: Appearance Pleural Fluid Turbid (Clear); Color Pleural Fluid Brown (Colorless); Pleural fluid source Pleural fluid
[2021-08-07 13:41] LABS: Nucleated Cell Pleural Fluid 54740 /uL (0-1000)
[2021-08-07 13:44] LABS: Lymphocytes Pleural Fluid 11 %; Neutrophils Pleural Fluid 89 % (0-25)
--- NOTE | 2021-08-07 15:15 | PM.IMPN ---
Progress Note: A&P Assessment and Plan (1) Pneumonia: Qualifiers: Laterality: left Lung location: unspecified part of lung Pneumonia type: due to unspecified organism Qualified Code(s): J18.9 - Pneumonia, unspecified organism Code(s): J18.9 - Pneumonia, unspecified organism Status: Acute Assessment and Plan: He has been started on azithromycin and ceftriaxone. Sputum to be attempted for culture. Urine to check for Legionella and strep pneumoniae antigens. Bedside swallow ordered to evaluate for possible dysphagia or concerns for aspiration. Schedule bronchodilators. Add Pulmozyme and Saman to help mobilize secretions. 08/01/2021 Interval history: patient presented with complaint of short suspect patient has pneumonia patient had a swallow study today suggested risk for aspiration patient is being treated with Rocephin and azithromycin will stop the Rocephin and start the patient on Unasyn to cover for anaerobic, upon arrival patient blood sugar was significantly elevated was a concern for DKA patient was started on insulin drip, insulin drip was stopped, patient blood sugars are trending down, patient currently on oral medication as well as sliding scale, will continue to monitor patient will have a PT OT evaluate and further recommendation to follow. 08/02/2021 Interval history: patient presented with complaint of short suspect patient has pneumonia patient had a swallow study on 08/01 suggested risk for aspiration patient was being treated with Rocephin and azithromycin stopped the Rocephin and started the patient on Unasyn to cover for anaerobic, will repeat chest x-ray tomorrow and reassess, upon arrival patient blood sugar was significantly elevated was a concern for DKA patient was started on insulin drip, insulin drip was stopped, patient blood sugars a still above 300, patient currently on Glucotrol 5 mg q.day will increase to 5 mg b.i.d., as well as sliding scale, will continue to monitor patient will have a PT OT evaluate and further recommendation to follow. 08/03/2021: BNP 3600, strep ag and pneumophila ag pending. , covid neg. cxr wth left pleural effusion which is new. will repeat cxr today , leukocytosis persists, may need to tap if persistent effusion and leukocytosis. however inr is therpaeutic ad may need to hold for the tap to happen. echo 07/14: EF 25-30%, wall motion abnormality suggestiv eoflarge LAD distribution infarctio, mild conc LVH, anormal LV diastolic function, bioprosthetic aortic valve wellseated, no AR, RVSP 8+, echo prio wih e [id number]$, with severe hypokinesis of the distal septal and lateral kaur and apex. Will consult Cardiology regard to his congestive heart failure management and worsening ejection fraction. Left pleural effusion with leukocytosis remains persistent and hence will need re-evaluation. If thoracentesis is planned may need to hold warfarin before we do that and for that reason I will have Cardiology on board as well. Will repeat chest x-ray today may need to order CT chest for further evaluation as well he is on Pulmozyme for his cough along with some bronchodilators. Already on Unasyn and azithromycin which provides good coverage for his underlying pneumonia. Swallow study reviewed and on a dysphagia diet currently. Hyperglycemic when presented in more than 500 with chronic kidney disease stage 4 I see no other option other than starting on basal insulin. He is already on glipizide which has been increased. Will add 16 units of Lantus from [employer] and monitor his Accu-Cheks. SGLT2 inhibitor is contraindicated due to his renal dysfunction as his GFR is 17. 08/04/2021 Interval history: patient presented with complaint of short suspect patient has pneumonia patient had a swallow study on 08/01 suggested risk for aspiration patient was being treated with Rocephin and azithromycin stopped the Rocephin and started the patient on Unasyn to cover for anaerobic, repeated chest x-ra
--- NOTE | 2021-08-07 15:35 | PM.PNCARD ---
Progress Note: A&P Assessment and Plan (1) Combined systolic and diastolic congestive heart failure: Code(s): I50.40 - Unspecified combined systolic (congestive) and diastolic (congestive) heart failure <ALEXUS Quiroga - Last Filed: 08/07/21 16:06> Status: Acute <ALEXUS Quiroga - Last Filed: 08/07/21 16:06> Assessment and Plan: Cardiomyopathy with ejection fraction of 25-30%. Has been diuresing. Does not appear significantly volume overloaded at this time. He has cardiorenal syndrome and delicate balance between heart failure and renal failure. Continue Carvedilol, daily Bumex 1mg po. Resumed hydralazine but at a lower dose 25 mg p.o. t.i.d. and up titrate as need be. Continue isosorbide 30mg daily Continue Metolazone Wednesdays and Fridays. <ALEXUS Quiroga - Last Filed: 08/07/21 16:06> (2) Persistent atrial fibrillation: Code(s): I48.19 - Other persistent atrial fibrillation <ALEXUS Quiroga - Last Filed: 08/07/21 16:06> Status: Acute <ALEXUS Quiroga - Last Filed: 08/07/21 16:06> Assessment and Plan: s/p biventricular pacemaker placed in May and AV node ablation in June. Currently paced rhythm. Resume coumadin this evening. <ALEXUS Quiroga - Last Filed: 08/07/21 16:06> (3) Pneumonia: Code(s): J18.9 - Pneumonia, unspecified organism <ALEXUS Quiroga - Last Filed: 08/07/21 16:06> Status: Acute <ALEXUS Quiroga - Last Filed: 08/07/21 16:06> Assessment and Plan: Treatment per hospitalist. IV ABx. <ALEXUS Quiroga - Last Filed: 08/07/21 16:06> (4) Acute renal failure superimposed on chronic kidney disease: Code(s): N17.9 - Acute kidney failure, unspecified; N18.9 - Chronic kidney disease, unspecified <ALEXUS Quiroga - Last Filed: 08/07/21 16:06> Status: Acute <ALEXUS Quiroga - Last Filed: 08/07/21 16:06> Assessment and Plan: BUN/Cr remain elevated at 88/3.10 but are stable. <ALEXUS Quiroga - Last Filed: 08/07/21 16:06> (5) S/P TAVR (transcatheter aortic valve replacement): Code(s): Z95.2 - Presence of prosthetic heart valve <ALEXUS Quiroga - Last Filed: 08/07/21 16:06> Status: Acute <ALEXUS Quiroga - Last Filed: 08/07/21 16:06> Assessment and Plan: Functioning normally by echocardiogram recently <ALEXUS Quiroga - Last Filed: 08/07/21 16:06> (6) Status post biventricular pacemaker: Code(s): Z95.0 - Presence of cardiac pacemaker <ALEXUS Quiroga - Last Filed: 08/07/21 16:06> Status: Acute <ALEXUS Quiroga - Last Filed: 08/07/21 16:06> Assessment and Plan: Normal function and appropriate biventricular pacing when last checked. 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 Culures sent. <ALEXUS Quiroga - Last Filed: 08/07/21 16:06> Additional Plan Attending Addendum: I have personally seen and examined this patient at bedside. I agree with the above documentation and plan of care as outlined. -status post thoracentesis with only 50 cc fluid removal. Cytology pending. Patient states he feels maybe a little better but doing okay. Remains on high-flow nasal cannula. Eating dinner this evening without difficulty. Denies chest pain no fevers or chills. No significant edema. Exam: NAD, A&Ox3, nonfocal neuro exam No JVD Lungs diminished breath sounds at the bases particularly the left, faint crackles respirations unlabored Cardio
[2021-08-07 16:22] LABS: Glucose Point of Care 186 mg/dl (65-105)
[2021-08-07] MEDS: CARBIDOPA/LEVODOPA 25/100 MG TABLET 1 TABLET PO (17:15)
[2021-08-07] MEDS: hydrALAZINE HCL 25 MG TABLET PO (17:15)
[2021-08-07] MEDS: GABAPENTIN 300 MG CAPSULE 600 MG PO (17:15)
[2021-08-07] MEDS: AMPICILLIN SULB 3 GM/NS 100 ML 3 GM/100 ML VIAL IVPB (17:15)
[2021-08-07] MEDS: TERAZOSIN HCL 1 MG CAPSULE 2 MG PO (17:15)
[2021-08-07] MEDS: WARFARIN (*PBKC) 3 MG TABLET PO (17:16)
[2021-08-07 20:12] LABS: Glucose Point of Care 210 mg/dl (65-105)
[2021-08-07] MEDS: INSULIN GLARGINE (*BKC) 100 UNITS/ML 16 UNITS SUB-Q (20:40)
[2021-08-08] VITALS (14 sets, daily range): BP systolic 102–126; BP diastolic 46–58; PULSE 59–70; RESP 16–18; TEMP 36.6; O2SAT 92–95
[2021-08-08] MEDS: ALBUTEROL SULFATE NEB 2.5 MG/0.5 ML INH 5 MG INHALATION ×4 (02:13→20:12)
[2021-08-08] MEDS: IPRATROPIUM BR 0.02% INH SOLN 0.5 MG/2.5 ML VIAL INHALATION ×4 (02:13→20:12)
[2021-08-08 06:19] LABS: Hematocrit 32.8 % (42.0-52.0); Hemoglobin 9.2 g/dL (14.0-18.0); Mean Corpuscular Hemoglobin 26.7 pg (26-34); Mean Corpuscular Volume 95.1 fl (80-100); Mean Platelet Volume 10.8 fl (7.4-10.4); Platelet Count Result 264 k/mm3 (150-375); Red Blood Count 3.45 M/mm3 (4.6-6.20); Red Cell Distribution Width 18.4 % (11.5-14.5); White Blood Count 14.5 K/mm3 (4.5-10.0)
[2021-08-08 06:37] LABS: INR 1.6; Prothrombin Time 18.1 Seconds (11.1-14.7)
[2021-08-08 07:49] LABS: Glucose Point of Care 67 mg/dl (65-105)
[2021-08-08 07:58] LABS: Glucose Point of Care 131 mg/dl (65-105)
[2021-08-08] MEDS: DORNASE ALFA INH SOLN 1 MG/ML 2.5 ML AMP 2.5 MG INHALATION ×2 (08:14→20:12)
[2021-08-08 08:25] LABS: Anion Gap 6 mmol/L (8-16); Blood Urea Nitrogen 78 mg/dL (9-20); Calcium 8.4 mg/dL (8.4-10.2); Carbon Dioxide 26 mmol/L (22-30); Chloride 111 mmol/L (98-107); Estimated CRCL calculation 16 ml/min; Estimated Glomerular Filt Rate 20; Glucose 126 mg/dL (65-110); Magnesium 2.9 mg/dL (1.6-2.3); Potassium 3.9 mmol/L (3.4-5.0); Sodium 143 mmol/L (137-145)
[2021-08-08] MEDS: HYDROcodone/acetaminophen (*CRX) 10-325 MG TABLET 1 TAB PO ×2 (09:19→16:50)
[2021-08-08] MEDS: carvediloL 25 MG TABLET PO ×2 (09:20→16:44)
[2021-08-08] MEDS: POTASSIUM CHLORIDE 20 MEQ TABLET.ER 40 MEQ PO (09:20)
[2021-08-08] MEDS: FEBUXOSTAT 40 MG TABLET PO (09:20)
[2021-08-08] MEDS: GABAPENTIN 300 MG CAPSULE 600 MG PO ×2 (09:20→16:44)
[2021-08-08] MEDS: metOLazone 5 MG TABLET PO (09:20)
[2021-08-08] MEDS: CARBIDOPA/LEVODOPA 25/100 MG TABLET 1 TABLET PO ×3 (09:20→16:44)
[2021-08-08] MEDS: BUMETANIDE 1 MG TABLET PO ×2 (09:20→17:59)
[2021-08-08] MEDS: hydrALAZINE HCL 25 MG TABLET PO ×2 (09:20→16:44)
[2021-08-08] MEDS: ISOSORBIDE MONONITRATE 30 MG TAB.ER.24H PO (09:20)
[2021-08-08 11:59] LABS: Glucose Point of Care 174 mg/dl (65-105)
--- NOTE | 2021-08-08 16:13 | WPDNEUROPN ---
Progress Note: A&P Additional Plan tremor responding to carbidopa levodopa 25/100 3 times a day discussed with him and his treatment will be continued as such Subjective Date/time seen: 08/08/21 16:13 gross tremors with inability to handle primary was started on sign a med 25/100 3 times a day with meals Review of Systems Review of Systems: All systems reviewed & are unremarkable except as noted in HPI and below Exam Const: General: cooperative, comfortable, alert and awake Nutritional Appearance: average body habitus Orientation/consciousness: oriented to person, oriented to place and oriented to time Limitations: physical limitations HENMT: Head: normal to inspection and normocephalic Ears: hearing grossly normal bilaterally General nose exam: Normal external nose present Face and sinus: normal facial exam Mouth: Yes Normal oral and palatal mucosa present Eyes: General: appearance normal, both eyes and all related structures Visual Brown: normal visual brown by confrontation Alignment and Position: alignment normal Periorbital: periorbital findings normal Eyelids: eyelids normal Conjunctivae: conjunctivae normal Sclera: sclerae normal Cornea: corneas normal Pupils: Equal, round and reactive pupils present EOM: EOMs intact bilaterally Direct Ophthalmoscopy: normal light reflex Neck: Neck: full ROM and no lymphadenopathy Resp: Effort & Inspection: normal respiratory effort and able to speak in complete sentences Auscultation: clear to auscultation bilaterally Cardio: Rhythm: regular rhythm Neuro: General: oriented to person and oriented to place Cranial nerves: Yes CN's II-XII intact bilaterally Cognition (Neuro): normal cognition Speech: normal speech Sensory Exam: normal sensation Deep tendon reflexes (DTR's): Right triceps reflex intensity grade: 1+, Left triceps reflex intensity grade: 1+, Rt Biceps (C5, C6): 1+, Left biceps reflex intensity grade: 1+, Right brachioradialis reflex intensity grade: 1+, Left brachioradialis reflex intensity grade: 1+, Right patellar reflex intensity grade: 1+, Left patellar reflex intensity grade: 1+, Right ankle reflex intensity grade: 1+ and Left ankle reflex intensity grade: 1+ Plantar Reflex Responses: downgoing: bilateral Coordination: [id number] test normal Psych: Appearance: grossly normal Speech and movement: Normal speech and movement present Affect: normal affect Attitude: cooperative Thought process: Normal thought process present Thought content: Yes Normal thought content present Insight: Fair insight present (Psych) Judgement: Fair judgement present (Psych) Objective Data Vital Signs Vital Signs: Vital Signs - 24 hr 08/07/21 19:56 08/07/21 19:57 08/07/21 20:00 Temperature Pulse Rate 66 69 Respiratory Rate 18 18 Blood Pressure Pulse Oximetry 90 93 08/07/21 20:14 08/07/21 21:37 08/08/21 02:14 Temperature 36.3 C L Pulse Rate 69 69 62 Respiratory Rate 18 18 18 Blood Pressure 124/90 Pulse Oximetry 93 08/08/21 02:23 08/08/21 06:39 08/08/21 08:14 Temperature 36.6 C Pulse Rate 67 59 L 70 Respiratory Rate 18 18 18 Blood Pressure 118/52 L Pulse Oximetry 92 08/08/21 08:26 08/08/21 08:27 08/08/21 11:11 Temperature Pulse Rate 66 Respiratory Rate 18 Blood Pressure 102/58 L Pulse Oximetry 94 08/08/21 14:08 08/08/21 14:16 Temperature Pulse Rate 62 67 Respiratory Rate 18 18 Blood Pressure Pulse Oximetry Intake/Output Intake/Output: Intake & Output 08/05/21 08/06/21 08/07/21 08/08/21 23:59 23:59 23:59 23:59 Intake Total 630 800 840 510 Output Total 1375 1520 1600 200 Balance -745 -720 -760 310 Meds/Results Medications: Active Medications Generic Name Dose Route Start Last Admin Trade Name Freq PRN Reason Stop Dose Admin Hydrocodone Bitart/Acetaminophen 1 tab 08/01/21 01:24 08/08/21 09:19 Hydrocodone/Acetaminophen (*Crx) 10-325 Mg Tablet PO 1 tab Q8H PRN Adm
[2021-08-08] MEDS: INSULIN ASPART (*BKC) 100 UNITS/ML SUB-Q (16:47)
[2021-08-08 17:12] LABS: Glucose Point of Care 328 mg/dl (65-105)
[2021-08-08] MEDS: AMPICILLIN SULB 3 GM/NS 100 ML 3 GM/100 ML VIAL IVPB (17:58)
[2021-08-08] MEDS: TERAZOSIN HCL 1 MG CAPSULE 2 MG PO (17:59)
--- NOTE | 2021-08-08 19:03 | PM.PNCARD ---
Progress Note: A&P Assessment and Plan (1) Combined systolic and diastolic congestive heart failure: Code(s): I50.40 - Unspecified combined systolic (congestive) and diastolic (congestive) heart failure Status: Acute Assessment and Plan: Cardiomyopathy with ejection fraction of 25-30%. Has been diuresing. Does not appear significantly volume overloaded at this time. He has cardiorenal syndrome and delicate balance between heart failure and renal failure. Continue Carvedilol, daily Bumex 1mg po. Resumed hydralazine but at a lower dose 25 mg p.o. t.i.d. and up titrate as need be. Continue isosorbide 30mg daily Continue Metolazone Wednesdays and Fridays. I discussed at length with the patient and his concerned he has required persistent high O2 supplementation. I discussed the risk versus benefit of giving additional diuretic to observe response particularly as documented urine output was declining. However, it appears he has had more urine output than has been recorded although this remains unclear. Discussed giving additional Bumex 1 mg this evening but after deciding to hold this he had already received it. Also discussed increasing metolazone frequency to daily, however, I do not feel this will significantly benefit him and as he is lying fairly flat I do not feel overt decompensated heart failure is his primary explanation for persistent high O2 demand. Will observe response with the additional Bumex he inadvertently received, however, I will change back to metolazone on Wednesdays and Fridays. Monitor renal function electrolytes closely. All questions answered to their satisfaction. (2) Persistent atrial fibrillation: Code(s): I48.19 - Other persistent atrial fibrillation Status: Acute Assessment and Plan: s/p biventricular pacemaker placed in May and AV node ablation in June. Currently paced rhythm. Warfarin resumed. Goal INR 2-3. (3) Pneumonia: Code(s): J18.9 - Pneumonia, unspecified organism Status: Acute Assessment and Plan: Treatment per hospitalist. IV ABx. Patient continues to require high-flow nasal cannula hypoxic respiratory failure which is quite concerning. COVID negative. (4) Acute renal failure superimposed on chronic kidney disease: Code(s): N17.9 - Acute kidney failure, unspecified; N18.9 - Chronic kidney disease, unspecified Status: Acute Assessment and Plan: BUN/Cr remain elevated at 88/3.10 but are stable. (5) S/P TAVR (transcatheter aortic valve replacement): Code(s): Z95.2 - Presence of prosthetic heart valve Status: Acute Assessment and Plan: Functioning normally by echocardiogram recently (6) Status post biventricular pacemaker: Code(s): Z95.0 - Presence of cardiac pacemaker Status: Acute Assessment and Plan: Normal function and appropriate biventricular pacing when last checked. (7) Chronic anticoagulation: Code(s): Z79.01 - [facility] (current) use of anticoagulants Status: Acute Assessment and Plan: U/s guided thoracentesis today yielding 50mL dennison/pink fluid. Subjective Date/time seen: Date of service: 08/08/21 19:03 Follow-up for CHF, CKD, AFib 08/08/21 patient feels about the same perhaps a little better. Input and output not being accurately monitor. at bedside states she had indeed his urinal several times not knowing that she should report this to the nurse. Patient lying fairly flat in bed still short of breath remains on 10-11 L O2 high-flow nasal cannula. Denies chest pain or palpitations. No new issues overnight otherwise. No edema. No fevers or chills. Patient frustrated by thickened liquids. Review of Systems Review of Systems: All systems reviewed & are unremarkable except as noted in HPI and below Constitutional: Constitutional: Denies excessive sweating, Reports fatigue, Denies headach
[2021-08-08 20:58] LABS: Glucose Point of Care 324 mg/dl (65-105)
[2021-08-08] MEDS: INSULIN GLARGINE (*BKC) 100 UNITS/ML 16 UNITS SUB-Q (21:15)
[2021-08-09] VITALS (16 sets, daily range): BP systolic 90–137; BP diastolic 40–68; PULSE 60–82; RESP 18–20; TEMP 36.1–36.5; O2SAT 90–97
[2021-08-09] MEDS: ALBUTEROL SULFATE NEB 2.5 MG/0.5 ML INH 5 MG INHALATION ×4 (02:18→20:12)
[2021-08-09] MEDS: IPRATROPIUM BR 0.02% INH SOLN 0.5 MG/2.5 ML VIAL INHALATION ×4 (02:18→20:12)
[2021-08-09 05:53] LABS: Hemoglobin 8.9 g/dL (14.0-18.0); Mean Corpuscular HGB Conc 28.7 g/dl (32-36); Mean Corpuscular Hemoglobin 26.6 pg (26-34); Mean Corpuscular Volume 92.5 fl (80-100); Mean Platelet Volume 10.9 fl (7.4-10.4); Platelet Count Result 288 k/mm3 (150-375); Red Blood Count 3.35 M/mm3 (4.6-6.20); Red Cell Distribution Width 18.3 % (11.5-14.5); White Blood Count 15.2 K/mm3 (4.5-10.0)
[2021-08-09 06:06] LABS: Anion Gap 4 mmol/L (8-16); Blood Urea Nitrogen 75 mg/dL (9-20); Calcium 8.2 mg/dL (8.4-10.2); Carbon Dioxide 26 mmol/L (22-30); Chloride 112 mmol/L (98-107); Estimated CRCL calculation 14 ml/min; Estimated Glomerular Filt Rate 18; Glucose 146 mg/dL (65-110); Magnesium 2.8 mg/dL (1.6-2.3); Potassium 3.8 mmol/L (3.4-5.0); Sodium 142 mmol/L (137-145)
[2021-08-09] MEDS: glipiZIDE 5 MG TABLET PO (06:09)
[2021-08-09 06:18] LABS: INR 1.5; Prothrombin Time 17.9 Seconds (11.1-14.7)
[2021-08-09 07:50] LABS: Glucose Point of Care 159 mg/dl (65-105)
[2021-08-09] MEDS: DORNASE ALFA INH SOLN 1 MG/ML 2.5 ML AMP 2.5 MG INHALATION ×2 (08:55→20:12)
[2021-08-09] MEDS: GABAPENTIN 300 MG CAPSULE 600 MG PO ×2 (09:57→17:21)
[2021-08-09] MEDS: hydrALAZINE HCL 25 MG TABLET PO ×3 (09:57→17:22)
[2021-08-09] MEDS: POTASSIUM CHLORIDE 20 MEQ TABLET.ER 40 MEQ PO (09:58)
[2021-08-09] MEDS: FEBUXOSTAT 40 MG TABLET PO (09:58)
[2021-08-09] MEDS: ISOSORBIDE MONONITRATE 30 MG TAB.ER.24H PO (09:58)
[2021-08-09] MEDS: CARBIDOPA/LEVODOPA 25/100 MG TABLET 1 TABLET PO ×3 (09:58→17:21)
[2021-08-09] MEDS: carvediloL 25 MG TABLET PO ×2 (09:58→17:22)
[2021-08-09] MEDS: BUMETANIDE 1 MG TABLET PO (09:59)
[2021-08-09] MEDS: HYDROcodone/acetaminophen (*CRX) 10-325 MG TABLET 1 TAB PO ×2 (10:01→17:31)
--- NOTE | 2021-08-09 10:58 | PCNFU ---
Nutrition Follow-Up Complete: Increased protein needs related to wounds as evidenced by bilateral buttock pressure ulcer - deep tissue Goal: Pt to meet 75% of estimated nutritional needs Patient is progressing towards goal. We will continue current goal. Pt current nutrition is DBCC with Moderately thick liquids, Level 3 Last recorded weight is 79.4 kg, down from 81 kg on admit. Bowel Motility:colostomy Labs Reviewed:Mg 2.8,BUN 75, Cr 3.3,Hgb 8.9,Hct 31.0 Meds Noted:NovoLog, Atrovent, Zaroxolyn, [place], KCL tablet, Bumex, Sinemet. Skin: Deep Tissue-buttock. Additional Notes: Patient remains on a diabetic diet with Glucerna shakes. He is eating well, 50-100% reported. Patient is drinking is diet supplements providing an additional 240 kcals and 10 gms protein. Agree with diet orders. Will monitor labs, medication, wt, and reported intake every 5 days
[2021-08-09 11:30] LABS: Glucose Point of Care 259 mg/dl (65-105)
--- NOTE | 2021-08-09 12:33 | PM.PNCARD ---
Progress Note: A&P Assessment and Plan (1) Combined systolic and diastolic congestive heart failure: Code(s): I50.40 - Unspecified combined systolic (congestive) and diastolic (congestive) heart failure Status: Acute Assessment and Plan: Cardiomyopathy with ejection fraction of 25-30%. Has been diuresing. Does not appear significantly volume overloaded at this time. He has cardiorenal syndrome and delicate balance between heart failure and renal failure. Continue Carvedilol, daily Bumex 1mg po. Resumed hydralazine but at a lower dose 25 mg p.o. t.i.d. and up titrate as need be. Continue isosorbide 30mg daily Continue Metolazone Wednesdays and Fridays. I discussed at length with the patient and his concerned he has required persistent high O2 supplementation. after making an initial decision to given additional Bumex last night I informed the nurse I would not do so and to hold evening Bumex. Prior to discontinuing the order he did receive 1 mg Bumex last evening and had fair urine output. However, clinically this has not made a significant impact also corroborating my opinion that CHF is not his primary issue with regards to high O2 demand. He will require ongoing diuretics balancing his renal function. Continue supportive therapy for pneumonia. Chest x-ray slightly worse in the right base overall. Left pleural effusion persists. I explained the above to the patient. He understands and felt fine with the additional Bumex less eating. (2) Persistent atrial fibrillation: Code(s): I48.19 - Other persistent atrial fibrillation Status: Acute Assessment and Plan: s/p biventricular pacemaker placed in May and AV node ablation in June. Currently paced rhythm. Warfarin resumed. Goal INR 2-3. (3) Pneumonia: Code(s): J18.9 - Pneumonia, unspecified organism Status: Acute Assessment and Plan: Treatment per hospitalist. IV ABx. Patient continues to require high-flow nasal cannula hypoxic respiratory failure which is quite concerning. COVID negative. Highly concerning chest x-ray shows if anything slight progression with diffuse infiltrates and ongoing high O2 demand without improvement in several days. I would recommend pulmonology consultation as he may also have associated pneumonitis. Incentive spirometer at bedside would be advised. (4) Acute renal failure superimposed on chronic kidney disease: Code(s): N17.9 - Acute kidney failure, unspecified; N18.9 - Chronic kidney disease, unspecified Status: Acute Assessment and Plan: BUN/Cr remain elevated, Creatinine up slightly 3.3 possibly secondary to additional 1 mg Bumex last evening. Will resume Bumex 1 mg daily and metolazone Friday. (5) S/P TAVR (transcatheter aortic valve replacement): Code(s): Z95.2 - Presence of prosthetic heart valve Status: Acute Assessment and Plan: Functioning normally by echocardiogram recently (6) Status post biventricular pacemaker: Code(s): Z95.0 - Presence of cardiac pacemaker Status: Acute Assessment and Plan: Normal function and appropriate biventricular pacing when last checked. 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 Subjective Date/time seen: Date of service:08/09/21 12:33 Follow-up for cardiomyopathy, CHF, pneumonia, biventricular device, history of AFib feels about the same. Complains of tremors. Reasonably comfortable at rest short of breath with any activity. No new issues overnight. No chest pain, fevers, chills. No nausea vomiting. Review of Systems Review of Systems: All systems reviewed & are unremarkable except as noted in HPI and below Constitutional: Constitutional: Denies excessive sweati
[2021-08-09] MEDS: INSULIN ASPART (*BKC) 100 UNITS/ML SUB-Q ×2 (13:12→17:22)
--- NOTE | 2021-08-09 15:27 | PM.CNPUL ---
Assessment and Plan Assessment and plan (1) Hypoxemic respiratory failure, chronic: Code(s): J96.11 - Chronic respiratory failure with hypoxia Status: Acute Assessment and Plan: 86-year-old man with chronic cardiac problems, congestive heart failure persistent atrial fibrillation presented with shortness of breath. Patient has history of COPD and has been on supplemental oxygen at home. He has not had any history of COPD exacerbations and has not been on any maintenance bronchodilators for COPD. Last PFT showed combined obstructive and restrictive defect and severely reduced lung diffusion capacity. He had moderate radiographic emphysema on last chest CT. Initial chest imaging studies showed lung congestion bilaterally as well as left pleural effusion. on last x-ray there was a clearing of the right lung infiltrate and persistence of the left lung infiltrate. Unclear whether this is pneumonitis or just lung congestion related to heart failure. will proceed with chest CT without contrast to assess for lung infiltrates. Further recommendations based upon the findings of chest CT. (2) Chronic combined systolic and diastolic congestive heart failure: Code(s): I50.42 - Chronic combined systolic (congestive) and diastolic (congestive) heart failure Status: Acute (3) Chronic obstructive pulmonary disease: Qualifiers: COPD type: COPD with acute lower respiratory infection Qualified Code(s): J44.0 - Chronic obstructive pulmonary disease with (acute) lower respiratory infection Code(s): J44.9 - Chronic obstructive pulmonary disease, unspecified Status: Acute (4) Chronic respiratory failure with hypoxia: Code(s): J96.11 - Chronic respiratory failure with hypoxia Status: Acute (5) Lung nodules: Code(s): R91.8 - Other nonspecific abnormal finding of lung field Status: Acute (6) PATRICIA (obstructive sleep apnea): Code(s): G47.33 - Obstructive sleep apnea (adult) (pediatric) Status: Acute (7) Chronic atrial fibrillation, unspecified: Code(s): I48.20 - Chronic atrial fibrillation, unspecified Status: Acute (8) Pleural effusion: Code(s): J90 - Pleural effusion, not elsewhere classified Status: Acute Assessment and Plan: Patient underwent thoracentesis for left pleural effusion. There was no evidence of organisms on fluid and the cultures have been negative. We may not be able to characterize the fluid, i.e. transudate versus exudate, as fluid testing was incomplete. There was a relatively high number of red cells in the fluid corresponding to a Ht of about 0.7. it is unclear whether the thoracentesis was traumatic; of note the patient had fallen and injured his left body side, approximately 2 months ago. He did not have any respiratory symptoms however following injury. History of Present Illness History of Present Illness Consult date: 08/09/21 Chief complaint: Pneumonia,Severe hyperglycemia,CHF,COPD Narrative: This 86-year-old man is seen in consultation for hypoxemic respiratory failure. The patient has of multiple medical problems, mostly cardiac. He has history of CHF, paroxysmal atrial fibrillation, pacemaker implantation, coronary artery disease, peripheral vascular disease, chronic kidney disease hyperlipidemia, hypertension. He also has history of COPD with pulmonary function testing in September showing FEV1 of 1.24 L or 49% predicted, a combined restrictive obstructive defect and severely reduced lung diffusion capacity 22% predicted. On chest CT done last year there was evidence of radiographic emphysema as well as a small lung nodule in the right lower lobe for which six-month follow-up was recommended. in addition the patient has a history of obstructive sleep apnea but has not been on CPAP. The patient has been on home oxygen for the last 3 years. He presented approximately 9 days ago with shortness of
[2021-08-09 15:38] LABS: Glucose Pleural Fluid 59 mg/dL; Total Protein Pleural Fluid <3.0 g/dL
[2021-08-09 17:07] LABS: Glucose Point of Care 239 mg/dl (65-105)
[2021-08-09] MEDS: WARFARIN (*PBKC) 3 MG TABLET PO (17:23)
[2021-08-09] MEDS: AMPICILLIN SULB 3 GM/NS 100 ML 3 GM/100 ML VIAL IVPB (17:23)
[2021-08-09] MEDS: TERAZOSIN HCL 1 MG CAPSULE 2 MG PO (17:24)
[2021-08-09 19:34] LABS: Glucose Point of Care 297 mg/dl (65-105)
[2021-08-09] MEDS: INSULIN GLARGINE (*BKC) 100 UNITS/ML 16 UNITS SUB-Q (20:39)
[2021-08-10] VITALS (18 sets, daily range): BP systolic 109–139; BP diastolic 40–50; PULSE 59–70; RESP 16–21; TEMP 36.2–36.6; O2SAT 92–99
[2021-08-10] MEDS: IPRATROPIUM BR 0.02% INH SOLN 0.5 MG/2.5 ML VIAL INHALATION ×4 (02:20→19:47)
[2021-08-10] MEDS: ALBUTEROL SULFATE NEB 2.5 MG/0.5 ML INH 5 MG INHALATION ×4 (02:20→19:47)
[2021-08-10 07:37] LABS: Glucose Point of Care 134 mg/dl (65-105)
[2021-08-10 07:45] LABS: Hematocrit 32.3 % (42.0-52.0); Hemoglobin 9.2 g/dL (14.0-18.0); Mean Corpuscular HGB Conc 28.5 g/dl (32-36); Mean Corpuscular Hemoglobin 27.3 pg (26-34); Mean Corpuscular Volume 95.8 fl (80-100); Mean Platelet Volume 10.8 fl (7.4-10.4); Platelet Count Result 267 k/mm3 (150-375); Red Blood Count 3.37 M/mm3 (4.6-6.20); White Blood Count 13.8 K/mm3 (4.5-10.0)
[2021-08-10 07:53] LABS: INR 1.4; Prothrombin Time 16.5 Seconds (11.1-14.7)
[2021-08-10 07:59] LABS: Anion Gap 4 mmol/L (8-16); Blood Urea Nitrogen 70 mg/dL (9-20); Calcium 8.5 mg/dL (8.4-10.2); Carbon Dioxide 28 mmol/L (22-30); Chloride 110 mmol/L (98-107); Estimated CRCL calculation 16 ml/min; Estimated Glomerular Filt Rate 20; Glucose 143 mg/dL (65-110); Magnesium 2.8 mg/dL (1.6-2.3); Potassium 4.5 mmol/L (3.4-5.0); Sodium 142 mmol/L (137-145)
[2021-08-10] MEDS: DORNASE ALFA INH SOLN 1 MG/ML 2.5 ML AMP 2.5 MG INHALATION ×2 (09:42→19:47)
[2021-08-10] MEDS: carvediloL 25 MG TABLET PO ×2 (09:45→17:56)
[2021-08-10] MEDS: GABAPENTIN 300 MG CAPSULE 600 MG PO ×2 (09:45→17:56)
[2021-08-10] MEDS: hydrALAZINE HCL 25 MG TABLET PO ×3 (09:45→17:56)
[2021-08-10] MEDS: POTASSIUM CHLORIDE 20 MEQ TABLET.ER 40 MEQ PO (09:46)
[2021-08-10] MEDS: glipiZIDE 5 MG TABLET PO (09:47)
[2021-08-10] MEDS: CARBIDOPA/LEVODOPA 25/100 MG TABLET 1 TABLET PO ×3 (09:47→17:56)
[2021-08-10] MEDS: metOLazone 5 MG TABLET PO (09:47)
[2021-08-10] MEDS: ISOSORBIDE MONONITRATE 30 MG TAB.ER.24H PO (09:47)
[2021-08-10] MEDS: FEBUXOSTAT 40 MG TABLET PO (09:47)
[2021-08-10] MEDS: BUMETANIDE 1 MG TABLET PO (09:47)
--- NOTE | 2021-08-10 11:17 | PM.PNCARD ---
Progress Note: A&P Assessment and Plan (1) Combined systolic and diastolic congestive heart failure: Code(s): I50.40 - Unspecified combined systolic (congestive) and diastolic (congestive) heart failure Status: Acute Assessment and Plan: Cardiomyopathy with ejection fraction of 25-30%. Has been diuresing. Does not appear significantly volume overloaded at this time. He has cardiorenal syndrome and delicate balance between heart failure and renal failure. Continue Carvedilol, daily Bumex 1mg po. Resumed hydralazine but at a lower dose 25 mg p.o. t.i.d. and up titrate as need be. Continue isosorbide 30mg daily Continue Metolazone Wednesdays and Fridays. Patient is stable from heart failure perspective with not his primary issue. His pneumonia and associated complications of the most direct explanation for persistent high O2 demand. I discussed at length with the patient and his concerned he has required persistent high O2 supplementation. We discussed preliminary results of his CT scan and possible recommendations for transfer to outside facility work thoracic Surgical Services and possible VATS/decortication due to concern for empyema. No improvement with the escalation of diuretic therapy earlier this hospitalization. (2) Persistent atrial fibrillation: Code(s): I48.19 - Other persistent atrial fibrillation Status: Acute Assessment and Plan: s/p biventricular pacemaker placed in May and AV node ablation in June. Currently paced rhythm. Warfarin resumed. Goal INR 2-3. (3) Pneumonia: Code(s): J18.9 - Pneumonia, unspecified organism Status: Acute Assessment and Plan: Treatment per hospitalist. IV ABx. Patient continues to require high-flow nasal cannula hypoxic respiratory failure which is quite concerning. COVID negative. Highly concerning chest x-ray shows if anything slight progression with diffuse infiltrates and ongoing high O2 demand without improvement in several days. Greatly appreciate pulmonology involvement and recommendations. CT scan reviewed and discussed with patient and his at bedside at length. It appears patient will likely benefit from thoracic Surgical Services and may need VATS which is not performed at this institution. Defer to pulmonology and primary service in this regard. We discussed the dangers according risks given the present clinical circumstances. All questions answered to their satisfaction. (4) Acute renal failure superimposed on chronic kidney disease: Code(s): N17.9 - Acute kidney failure, unspecified; N18.9 - Chronic kidney disease, unspecified Status: Acute Assessment and Plan: BUN/Cr remain elevated, but stable overall. (5) S/P TAVR (transcatheter aortic valve replacement): Code(s): Z95.2 - Presence of prosthetic heart valve Status: Acute Assessment and Plan: Functioning normally by echocardiogram recently (6) Status post biventricular pacemaker: Code(s): Z95.0 - Presence of cardiac pacemaker Status: Acute Assessment and Plan: Normal function and appropriate biventricular pacing when last checked. 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 Subjective Date/time seen: Date of service:08/10/21 11:17 Follow-up for pneumonia, CHF, AFib, cardiomyopathy Patient states he feels about the same. No new complaints overnight. at bedside. Patient denies chest pain. No fever overnight. No dizziness. Occasional cough. No new shortness of breath. Remains on 9-10 L high-flow nasal cannula. Review of Systems Review of Systems: All systems reviewed & are unremarkable except as noted in HPI and below Constitutional: Constitutional: Denies excessive sweating, Repor
[2021-08-10 11:34] LABS: Glucose Point of Care 174 mg/dl (65-105)
--- NOTE | 2021-08-10 12:51 | PM.PNPUL ---
Progress Note: A&P Assessment and Plan (1) Pleural effusion: Code(s): J90 - Pleural effusion, not elsewhere classified Status: Acute (2) Hypoxemic respiratory failure, chronic: Code(s): J96.11 - Chronic respiratory failure with hypoxia Status: Acute Assessment and Plan: Patient underwent chest CT today. Chest CT showed moderate-sized loculated left pleural effusion, small right pleural effusion, atelectasis of the left lower lobe and emphysema. these findings explain the patient's worsening hypoxemia. on last thoracentesis with removal of approximately 50 mL of pink dennison fluid, the fluid analysis showed significant number of PMNs (79%) which indicates complicated parapneumonic effusion versus empyema. Pleural fluid analysis was incomplete for empyema but the high number of PMNs and the high number of RBCs that correspond to a hematocrit of 0.7 point to a complicated parapneumonic effusion related to recent pneumonia. on chest CT, the effusion appears loculated and thus may not be amenable to simple drainage via a chest tube. The patient was previously evaluated by pulmonology services at [facility]. During this most recent hospitalization at [facility] for pneumonia he was not seen by Pulmonary Services. I would suggest transfer back to [facility] for thoracic surgery consultation for possible VATS procedure. (3) Pneumonia: Qualifiers: Laterality: left Lung location: unspecified part of lung Pneumonia type: due to unspecified organism Qualified Code(s): J18.9 - Pneumonia, unspecified organism Code(s): J18.9 - Pneumonia, unspecified organism Status: Acute (4) Paroxysmal atrial fibrillation: Code(s): I48.0 - Paroxysmal atrial fibrillation Status: Acute (5) Chronic respiratory failure with hypoxia, on home oxygen therapy: Code(s): J96.11 - Chronic respiratory failure with hypoxia; Z99.81 - Dependence on supplemental oxygen Status: Acute (6) Chronic obstructive pulmonary disease: Qualifiers: COPD type: COPD with acute lower respiratory infection Qualified Code(s): J44.0 - Chronic obstructive pulmonary disease with (acute) lower respiratory infection Code(s): J44.9 - Chronic obstructive pulmonary disease, unspecified Status: Acute (7) Chronic respiratory failure with hypoxia: Code(s): J96.11 - Chronic respiratory failure with hypoxia Status: Acute Subjective Date/time seen: 08/10/21 12:51 Patient continues to require high high oxygen flow to maintain O2 saturation over 90%. He has had no new respiratory symptoms. Patient told me that he was hospitalized at [facility] for approximately 10 days with pneumonia. When discharged home, he resumed his home oxygen at same flow. He presented to the hospital with just shortness of breath. He had no symptoms to suggest lower respiratory tract infection. His oxygen needs have remained high despite treatment for his congestive heart failure. Review of Systems Review of Systems: All systems reviewed & are unremarkable except as noted in HPI and below Exam Narrative: GENERAL APPEARANCE: Well developed, well nourished, alert and cooperative, and appears to be in mild respiratory distress while on supplemental oxygen SKIN: Inspection of the skin reveals old petechiae in upper extremities. HEENT: Sclerae anicteric and conjunctivae pink and moist. Extraocular movements were intact and pupils were equal, round. NECK: Supple. There was no thyroid enlargement, and no tenderness, or masses were felt. LUNGS: decreased breath sounds at left base left base posteriorly, also crackles at bases CARDIAC: There was a regular rate and rhythm without any murmurs. ABDOMEN: Soft and nontender with normal bowel sounds. There was no organomegaly. LYMPH NODES: No lymphadenopathy was appreciated in the neck.. EXTREMITIES: No cyanosis, c
--- NOTE | 2021-08-10 14:32 | P.CDI_ITS ---
CDI Query Clarification Request -Pt is on home O2 at 2-3 L -07/31 ABG's pH 7.399 pCO2 38.9 pO265.3 HCO3 23.5 O2sats 92% on Cpap with fiO2 50% -Chronic respirtory failure documented -Patient has had an increased need of O2 up to 11L hi flow and currently 9L hi flow - Patient continues to require high-flow nasal cannula hypoxic respiratory failure which is quite concerning documented by cardiology Please clarify respiratory status: * Chronic respiratory failure * Acute on chronic respiratory failure * Other * Unable to determine <Candida Marrero RN - Last Filed: 08/10/21 14:38> Clarified Diagnosis (1) Hypoxemic respiratory failure, chronic: Code(s): J96.11 - Chronic respiratory failure with hypoxia <Candida Marrero RN - Last Filed: 08/10/21 14:38> Status: Acute <Candida Marrero RN - Last Filed: 08/10/21 14:38> Assessment and Plan: patient with acute on chronic respiratory failure most likely secondary to pneumonia and loculated pleural effusion <Doc Jensen MD - Last Filed: 08/25/21 14:51>
[2021-08-10 16:45] LABS: Glucose Point of Care 241 mg/dl (65-105)
[2021-08-10] MEDS: INSULIN ASPART (*BKC) 100 UNITS/ML SUB-Q (17:57)
[2021-08-10] MEDS: WARFARIN (*PBKC) 3 MG TABLET PO (17:57)
[2021-08-10] MEDS: TERAZOSIN HCL 1 MG CAPSULE 2 MG PO (17:57)
[2021-08-10] MEDS: AMPICILLIN SULB 3 GM/NS 100 ML 3 GM/100 ML VIAL IVPB (18:01)
[2021-08-10] MEDS: HYDROcodone/acetaminophen (*CRX) 10-325 MG TABLET 1 TAB PO (18:12)
[2021-08-10] MEDS: INSULIN GLARGINE (*BKC) 100 UNITS/ML 16 UNITS SUB-Q (20:09)
[2021-08-10 22:12] LABS: Glucose Point of Care 266 mg/dl (65-105)
[2021-08-11] VITALS (19 sets, daily range): BP systolic 100–139; BP diastolic 41–54; PULSE 60–74; RESP 18–20; TEMP 36.1–36.6; O2SAT 91–97
[2021-08-11] MEDS: ALBUTEROL SULFATE NEB 2.5 MG/0.5 ML INH 5 MG INHALATION ×4 (02:55→20:15)
[2021-08-11] MEDS: IPRATROPIUM BR 0.02% INH SOLN 0.5 MG/2.5 ML VIAL INHALATION ×4 (02:55→20:15)
[2021-08-11 05:56] LABS: Hemoglobin 8.4 g/dL (14.0-18.0); Mean Corpuscular Hemoglobin 26.8 pg (26-34); Mean Corpuscular Volume 92.7 fl (80-100); Mean Platelet Volume 10.6 fl (7.4-10.4); Platelet Count Result 256 k/mm3 (150-375); Red Blood Count 3.13 M/mm3 (4.6-6.20); Red Cell Distribution Width 18.1 % (11.5-14.5); White Blood Count 13.9 K/mm3 (4.5-10.0)
[2021-08-11 06:14] LABS: INR 1.5; Prothrombin Time 17.1 Seconds (11.1-14.7)
[2021-08-11 06:15] LABS: Anion Gap 5 mmol/L (8-16); Blood Urea Nitrogen 69 mg/dL (9-20); Calcium 8.4 mg/dL (8.4-10.2); Carbon Dioxide 26 mmol/L (22-30); Chloride 109 mmol/L (98-107); Estimated CRCL calculation 17 ml/min; Estimated Glomerular Filt Rate 22; Glucose 77 mg/dL (65-110); Magnesium 2.7 mg/dL (1.6-2.3); Potassium 4.6 mmol/L (3.4-5.0); Sodium 140 mmol/L (137-145)
[2021-08-11] MEDS: glipiZIDE 5 MG TABLET PO (06:57)
[2021-08-11 08:21] LABS: Glucose Point of Care 113 mg/dl (65-105)
[2021-08-11] MEDS: HYDROcodone/acetaminophen (*CRX) 10-325 MG TABLET 1 TAB PO (08:45)
[2021-08-11] MEDS: BUMETANIDE 1 MG TABLET PO (08:46)
[2021-08-11] MEDS: CARBIDOPA/LEVODOPA 25/100 MG TABLET 1 TABLET PO ×3 (08:46→17:13)
[2021-08-11] MEDS: GABAPENTIN 300 MG CAPSULE 600 MG PO ×2 (08:46→17:13)
[2021-08-11] MEDS: POTASSIUM CHLORIDE 20 MEQ TABLET.ER 40 MEQ PO (08:46)
[2021-08-11] MEDS: hydrALAZINE HCL 25 MG TABLET PO ×3 (08:46→17:14)
[2021-08-11] MEDS: carvediloL 25 MG TABLET PO ×2 (08:46→17:14)
[2021-08-11] MEDS: FEBUXOSTAT 40 MG TABLET PO (08:46)
[2021-08-11] MEDS: ISOSORBIDE MONONITRATE 30 MG TAB.ER.24H PO (08:47)
[2021-08-11] MEDS: DORNASE ALFA INH SOLN 1 MG/ML 2.5 ML AMP 2.5 MG INHALATION ×2 (09:19→20:15)
--- NOTE | 2021-08-11 09:56 | PM.PNCARD ---
Progress Note: A&P Assessment and Plan (1) Combined systolic and diastolic congestive heart failure: Code(s): I50.40 - Unspecified combined systolic (congestive) and diastolic (congestive) heart failure Status: Acute Assessment and Plan: Cardiomyopathy with ejection fraction of 25-30%. Has been diuresing. Does not appear significantly volume overloaded at this time. He has cardiorenal syndrome and delicate balance between heart failure and renal failure. Continue Carvedilol, daily Bumex 1mg po. Continue hydralazine Continue isosorbide 30mg daily Continue Metolazone Wednesdays and Fridays. Patient is stable from heart failure perspective with not his primary issue. His pneumonia and associated complications of the most direct explanation for persistent high O2 demand. I discussed at length with the patient and his concerned he has required persistent high O2 supplementation. We discussed preliminary results of his CT scan and possible recommendations for transfer to outside facility work thoracic Surgical Services and possible VATS/decortication due to concern for empyema. No improvement with the escalation of diuretic therapy earlier this hospitalization. (2) Persistent atrial fibrillation: Code(s): I48.19 - Other persistent atrial fibrillation Status: Acute Assessment and Plan: s/p biventricular pacemaker placed in May and AV node ablation in June. Currently paced rhythm. Warfarin resumed. Goal INR 2-3. (3) Pneumonia: Code(s): J18.9 - Pneumonia, unspecified organism Status: Acute Assessment and Plan: Treatment per hospitalist. IV ABx. Patient continues to require high-flow nasal cannula hypoxic respiratory failure which is quite concerning. COVID negative. Highly concerning chest x-ray shows if anything slight progression with diffuse infiltrates and ongoing high O2 demand without improvement in several days. Greatly appreciate pulmonology involvement and recommendations. CT scan reviewed and discussed with patient and his at bedside at length. It appears patient will likely benefit from thoracic Surgical Services and may need VATS which is not performed at this institution. Defer to pulmonology and primary service in this regard. We discussed the dangers according risks given the present clinical circumstances. All questions answered to their satisfaction. (4) Acute renal failure superimposed on chronic kidney disease: Code(s): N17.9 - Acute kidney failure, unspecified; N18.9 - Chronic kidney disease, unspecified Status: Acute Assessment and Plan: BUN/Cr remain elevated, but stable overall. (5) S/P TAVR (transcatheter aortic valve replacement): Code(s): Z95.2 - Presence of prosthetic heart valve Status: Acute Assessment and Plan: Functioning normally by echocardiogram recently (6) Status post biventricular pacemaker: Code(s): Z95.0 - Presence of cardiac pacemaker Status: Acute Assessment and Plan: Normal function and appropriate biventricular pacing when last checked. (7) Chronic anticoagulation: Code(s): Z79.01 - penitentiary (current) use of anticoagulants Status: Acute Assessment and Plan: U/s guided thoracentesis 08/07/21 only 50mL dennison/pink fluid removed. Subjective Date/time seen: 08/11/21 09:56 Interval history: Follow-up for pneumonia, CHF, AFib, cardiomyopathy Date of service 08/11/2021: Still awaiting a bed at [facility]. He feels about the same. No chest pain. No significant shortness breath while on high-flow oxygen Review of Systems Review of Systems: All systems reviewed & are unremarkable except as noted in HPI and below Constitutional: Constitutional: Denies excessive sweating, Reports fatigue, Denies headache(s) and Reports weakness Eyes: Eyes: Reports no additional eye complaints and Denies blurry vision ENT: Rep
[2021-08-11 12:02] LABS: Glucose Point of Care 150 mg/dl (65-105)
[2021-08-11 16:40] LABS: Glucose Point of Care 158 mg/dl (65-105)
[2021-08-11] MEDS: TERAZOSIN HCL 1 MG CAPSULE 2 MG PO (17:15)
[2021-08-11] MEDS: WARFARIN (*PBKC) 3 MG TABLET PO (17:15)
[2021-08-11] MEDS: AMPICILLIN SULB 3 GM/NS 100 ML 3 GM/100 ML VIAL IVPB (17:17)
--- NOTE | 2021-08-11 18:12 | PM.TDS ---
Transfer Discharge Sum: Prov Provider Date of admission: 08/01/21 09:44 Primary care physician: Christopher Elliott DO Admitting clinician: Doc Jensen MD Consults: 07/31/21 13:19 Consult to Dietitian Routine Reason for Consult:: DKA admission 08/01/21 09:00 Wound/ET Consult Routine Reason for Consult:: coccyx 08/03/21 11:41 Consult to Physician Routine Comment: talked to hospital receptionist Consulting Provider: Jovany Mayorga [employer] crewmember/MD group to consult: dr daniels Reason for consultation: congestive heart failure Has provider been notified: Yes 08/06/21 16:12 Consult to Physician Routine Comment: Spoke with 16:29 ([facility]) Consulting Provider: Nino Zapata [employer] crewmember/MD group to consult: Dr. Zapata Reason for consultation: tremors Has provider been notified: Yes 08/09/21 Consult to Physician Routine Comment: Consulting Provider: Monty Huffman [employer] crewmember/MD group to consult: Pulmonology Reason for consultation: Progressive pneumonia, persistent high O2 demand Has provider been notified: Yes DS: Admitting Diagnosis Discharge Date 08/11/2021 Admitting Diagnosis shortness of breath DS: Discharge Diagnosis Discharge Diagnosis (1) Pneumonia: Qualifiers: Laterality: left Lung location: unspecified part of lung Pneumonia type: due to unspecified organism Qualified Code(s): J18.9 - Pneumonia, unspecified organism Code(s): J18.9 - Pneumonia, unspecified organism Status: Acute Assessment and Plan: He has been started on azithromycin and ceftriaxone. Sputum to be attempted for culture. Urine to check for Legionella and strep pneumoniae antigens. Bedside swallow ordered to evaluate for possible dysphagia or concerns for aspiration. Schedule bronchodilators. Add Pulmozyme and Saman to help mobilize secretions. 08/01/2021 Interval history: patient presented with complaint of short suspect patient has pneumonia patient had a swallow study today suggested risk for aspiration patient is being treated with Rocephin and azithromycin will stop the Rocephin and start the patient on Unasyn to cover for anaerobic, upon arrival patient blood sugar was significantly elevated was a concern for DKA patient was started on insulin drip, insulin drip was stopped, patient blood sugars are trending down, patient currently on oral medication as well as sliding scale, will continue to monitor patient will have a PT OT evaluate and further recommendation to follow. 08/02/2021 Interval history: patient presented with complaint of short suspect patient has pneumonia patient had a swallow study on 08/01 suggested risk for aspiration patient was being treated with Rocephin and azithromycin stopped the Rocephin and started the patient on Unasyn to cover for anaerobic, will repeat chest x-ray tomorrow and reassess, upon arrival patient blood sugar was significantly elevated was a concern for DKA patient was started on insulin drip, insulin drip was stopped, patient blood sugars a still above 300, patient currently on Glucotrol 5 mg q.day will increase to 5 mg b.i.d., as well as sliding scale, will continue to monitor patient will have a PT OT evaluate and further recommendation to follow. 08/03/2021: BNP 3600, strep ag and pneumophila ag pending. , covid neg. cxr wth left pleural effusion which is new. will repeat cxr today , leukocytosis persists, may need to tap if persistent effusion and leukocytosis. however inr is therpaeutic ad may need to hold for the tap to happen. echo 07/14: EF 25-30%, wall motion abnormality suggestiv eoflarge LAD distribution infarctio, mild conc LVH, anormal LV diastolic function, bioprosthetic aortic valve wellseated, no AR, RVSP 8+, echo prio wih e 3040$, with severe hypokinesis of the distal septal and lateral kaur and apex. Will consult Cardiology regard to his congestive heart failure management and worsening ejection fraction. Left pleural effusion with leukocytosi
[2021-08-11 20:31] LABS: Glucose Point of Care 320 mg/dl (65-105)
[2021-08-11] MEDS: INSULIN GLARGINE (*BKC) 100 UNITS/ML 16 UNITS SUB-Q (20:53)
--- NOTE | 2021-08-11 23:06 | PC.NURSE ---
2038: REPORT CALLED TO ZAK FRANCES RN. PATIENT TO BE ASSIGNED TO ROOM 444. 2044: [facility] CALLED REGARDING PT TRANSFER. ETA [id number] [facility] HERE FOR PATIENT TRANSFER. ALL PERSONAL ARTIFACTS ALONG WITH PATIENT. ACCEPTING NURSE NOTIFIED.
== END 2021-08-11 22:50 | disposition short-term general hospital (02) | DRG 194 ==
LOC: ANHED 15:19 → ANHICU 16:49 → ANHIMU 20:20 → ANH3MED 08-02 15:12
PROVIDERS: Internal Medicine; Physician Assistant; Admitting Provider Family Medicine; Emergency Provider Emergency Medicine; PCP Internal Medicine; Visit Provider Family Medicine
DX: J18.9 Pneumonia, unspecified organism (principal); I13.0 Hypertensive heart and chronic kidney disease with heart failure and stage 1 through stage 4 chronic kidney disease, or unspecified chronic kidney disease; J44.0 Chronic obstructive pulmonary disease with (acute) lower respiratory infection; N18.4 Chronic kidney disease, stage 4 (severe); J96.11 Chronic respiratory failure with hypoxia; I50.42 Chronic combined systolic (congestive) and diastolic (congestive) heart failure; N17.9 Acute kidney failure, unspecified; K51.90 Ulcerative colitis, unspecified, without complications; J90 Pleural effusion, not elsewhere classified; I42.9 Cardiomyopathy, unspecified; E11.65 Type 2 diabetes mellitus with hyperglycemia; Z99.81 Dependence on supplemental oxygen; I71.4 Abdominal aortic aneurysm, without rupture; D63.1 Anemia in chronic kidney disease; Z95.2 Presence of prosthetic heart valve; M19.90 Unspecified osteoarthritis, unspecified site; I25.10 Atherosclerotic heart disease of native coronary artery without angina pectoris; Z79.01 Long term (current) use of anticoagulants; E11.22 Type 2 diabetes mellitus with diabetic chronic kidney disease; Z93.3 Colostomy status; E11.42 Type 2 diabetes mellitus with diabetic polyneuropathy; E78.5 Hyperlipidemia, unspecified; M10.9 Gout, unspecified; I48.0 Paroxysmal atrial fibrillation; E11.51 Type 2 diabetes mellitus with diabetic peripheral angiopathy without gangrene; Z95.5 Presence of coronary angioplasty implant and graft; Z87.891 Personal history of nicotine dependence; E87.6 Hypokalemia; Z79.4 Long term (current) use of insulin; R77.8 Other specified abnormalities of plasma proteins; I95.1 Orthostatic hypotension; Z20.822 Contact with and (suspected) exposure to COVID-19; G25.0 Essential tremor
CPT/HCPCS: 32555; 36415; 36600; 71045; 71046; 71250; 80048; 80053; 82375; 82805; 82945; 82947; 82948; 83036; 83050; 83605; 83735; 83880; 83986; 84145; 84157; 84439; 84443; 84484; 85025; 85027; 85610; 85730; 86140; 87015; 87040; 87102; 87116; 87206; 87449; 87899; 89051; 92507; 92526; 92610; 92611; 93005; 94640; 94667; 96361; 96365; 96366; 96367; 96368; 96375; 97110; 97116; 97162; 97165; 97530; 97535; 99285; A9270; C9803; G0378; J0295; J0456; J0696; J1100; J1815; J7120; U0003; U0005

== ENCOUNTER 2021-12-01 08:29 | Outpatient (CLI) | payer MEDICARE, OTHER, SELFPAY ==
--- NOTE | ~2021-12-01 | XR_ITS ---
XR chest 2V 12/01/2021 09:17 Indication: Pleural effusion. Procedure: AP and lateral views of the chest Comparison: Comparison to multiple prior studies sequentially, with oldest reviewed study dated 01/2022. Findings: Borderline heart size. Pacemaker leads are stable. There is a stent at the aortic root. Sma ll pleural effusions. There is improving bibasilar airspace disease. No pneumothorax. Surgical change s overlie the right upper thorax. Impression: 1: Improving bibasilar airspace disease which may represent atelectasis and/or pneumonia. 2: Small pleural effusions, left greater than right. Reviewed, dictated and finalized at location A. Impression: 1: Improving bibasilar airspace disease which may represent atelectasis and/or pneumonia. 2: Small pleural effusions, left greater than right.
[2021-12-01 09:30] LABS: Alanine Aminotransferase 9 U/L (6-50); Albumin Level 3.3 g/dL (3.5-5.1); Alkaline Phosphatase 122 U/L (38-126); Anion Gap 5 mmol/L (8-16); Aspartate Amino Transferase 15 U/L (17-59); Bilirubin,Total 0.5 mg/dL (0.2-1.3); Blood Urea Nitrogen 39 mg/dL (9-20); Calcium 8.8 mg/dL (8.4-10.2); Carbon Dioxide 25 mmol/L (22-30); Chloride 113 mmol/L (98-107); Estimated Glomerular Filt Rate 25; Glucose 199 mg/dL (65-110); Potassium 4.9 mmol/L (3.4-5.0); Sodium 143 mmol/L (137-145); Uric Acid 5.7 mg/dL (3.5-8.5)
[2021-12-01 10:26] LABS: Hemoglobin A1C 6.5 % (<5.7)
== END 2021-12-01 08:30 | disposition home or self-care (01) ==
LOC: ANHLAB 08:31
PROVIDERS: PCP Internal Medicine; Visit Provider Nurse Practitioner
DX: E11.9 Type 2 diabetes mellitus without complications (principal); M10.9 Gout, unspecified; J90 Pleural effusion, not elsewhere classified; R91.8 Other nonspecific abnormal finding of lung field
CPT/HCPCS: 36415; 71046; 80053; 83036; 84550

== ENCOUNTER 2021-12-01 15:25 | Inpatient (IN) | payer MEDICARE, OTHER, SELFPAY ==
[2021-12-01] VITALS (32 sets, daily range): BP systolic 133–165; BP diastolic 50–97; PULSE 77–119; RESP 15–24; TEMP 37–37.7; O2SAT 83–99; BMI 26.2
--- NOTE | ~2021-12-01 | CT_ITS ---
CT OF RIGHT LOWER EXTREMITY EXAMINATION: CT LE RT wo con DATE: 12/02/2021 12:39 INDICATION: Possible right thigh hematoma in the right thigh/buttocks. TECHNIQUE: Computed tomography (CT) of the right lower extremity was performed without intravenous co ntrast. Automated exposure control and iterative reconstruction technique were employed. The dose-cristobal gth product was 1392.59 mGy-cm. COMPARISON: None FINDINGS: Limitations: None Bones: No acute fracture or dislocation. Mild degenerative changes in the lower lumbar spine, bilater al SI joints, and bilateral hips. No lytic or blastic lesion. No erosion or periosteal change. Soft Tissues:Cholelithiasis. 4.3 cm fusiform infrarenal abdominal aortic aneurysm, incompletely evalu ated. Severe atherosclerotic calcification. Bladder wall thickening, likely due to osseous outlet com promise. Mild prostatomegaly with extensive prosthetic calcifications. Multiple stents in the bilater al external iliac, common femoral, and superficial femoral arteries. Spherical 3 cm blood pool densit y mass emanating from the right superficial femoral artery through gap between 2 stents, distal to th e takeoff of the deep femoral artery branch. Uncomplicated appearing right lower quadrant ostomy. Fluid: No significant fluid within the joint capsule or surrounding bursal spaces. No subcutaneous or intramuscular fluid collection. IMPRESSION: 3 cm blood pool density mass extending off the right superficial femoral artery, recommend vascular u ltrasound right groin/right thigh to exclude pseudoaneurysm. Infrarenal abdominal aortic aneurysm, me asuring at least 4.3 cm but incompletely evaluated. Recommend timely outpatient ultrasound of the abd ominal aorta to assess maximum size and establish follow-up recommendations (which will be at least o nce per year if no larger than 4.3 cm). Reviewed, dictated and finalized at location K. IMPRESSION: 3 cm blood pool density mass extending off the right superficial femoral artery , recommend vascular ultrasound right groin/right thigh to exclude pseudoaneury sm. Infrarenal abdominal aortic aneurysm, measuring at least 4.3 cm but incompl etely evaluated. Recommend timely outpatient ultrasound of the abdominal aorta to assess maximum size and establish follow-up recommendations (which will be a t least once per year if no larger than 4.3 cm).
--- NOTE | ~2021-12-01 | US_ITS ---
EXAMINATION:US venous doppler LE BI INDICATION:Leg edema TECHNIQUE: Multiple grayscale, color flow and Doppler images of the right and left lower extremity de ep venous systems were obtained and reviewed. COMPARISON:No prior studies for comparison. FINDINGS: The common femoral, superficial femoral and popliteal veins demonstrate normal respiratory variation, augmentation and compressibility. Color flow is also seen within the posterior tibial, pe roneal, greater saphenous and profunda veins. There is a thrombosed right thigh graft with no flow ev ident. There is a complex structure contiguous with the graft measuring 2.9 x 2.5 x 2.3 cm, possibly hematoma. IMPRESSION: 1: No lower extremity deep venous thrombosis. 2: Right-sided vascular graft is thrombosed. There is a complex structure contiguous with the graft measuring 2.9 x 2.5 x 2.3 cm, possibly hematoma. Reviewed, dictated and finalized at location A. IMPRESSION: 1: No lower extremity deep venous thrombosis. 2: Right-sided vascular graft is thrombosed. There is a complex structure cont iguous with the graft measuring 2.9 x 2.5 x 2.3 cm, possibly hematoma.
--- NOTE | ~2021-12-01 | XR_ITS ---
EXAMINATION: XR chest 1V portable Exam Date/Time: 12/01/2021 15:40 CDT HISTORY: weak;2L O2 home use, hx of cardiac stents, pacemaker, HTN Comparison: 12/01/2021. RESULT: Lines, tubes, and devices: Left chest pacer with intact leads. Cardiac valve replacement. Surgical s taples project over the peripheral right upper lung. Lungs and pleura: Diffuse reticular pattern. Unchanged left costophrenic angle blunting. Cardiomediastinal silhouette: Stable cardiomediastinal silhouette. Other: No acute osseous or upper abdominal finding. IMPRESSION: Pulmonary findings likely represent interstitial edema. Small left pleural effusion versus chronic pl eural scarring. Reviewed, dictated and finalized at location K. IMPRESSION: Pulmonary findings likely represent interstitial edema. Small left pleural effu marjorie versus chronic pleural scarring.
--- NOTE | ~2021-12-01 | CT_ITS ---
EXAMINATION: CT abdomen pelvis wo con DATE: 12/01/2021 22:47 INDICATION: Hematuria, fever and flank pain TECHNIQUE: Computed tomography (CT) of the abdomen and pelvis was performed without intravenous contr ast. The dose-length product was 592.08 mGy-cm. Automated exposure control and iterative reconstructi on technique were employed. COMPARISON: CT dated 08/17/2019 FINDINGS: Small bilateral pleural effusions with bilateral lower lobe airspace consolidation which ma y represent a combination of atelectasis and pneumonia. Cardiomegaly. Pacemaker leads are present. There are multiple calcified granulomas of the liver and spleen. There are liver and bilateral renal cysts. There is atherosclerosis of the renal arteries. Cannot exclude small nonobstructing renal ston es. Bladder is decompressed with possible bladder wall thickening. No ureteral stones or hydronephros is. Gallstones with gallbladder distention. There is infrarenal abdominal aortic aneurysm measuring u p to 4.4 cm. There are surgical changes consistent with colectomy with stoma in the right lower quadr ant. There are degenerative changes of the hips. Mild lumbar spondylosis. IMPRESSION: 1. Bladder wall thickening which may be due to underdistention or cystitis. Correlate clinically. 2: Bilateral lower lobe atelectasis/pneumonia with small pleural effusions. 3: Cardiomegaly. 4: Infrarenal abdominal aortic aneurysm measuring up to 4.4 cm. Reviewed, dictated and finalized at location A. IMPRESSION: 1. Bladder wall thickening which may be due to underdistention or cystitis. Cor relate clinically. 2: Bilateral lower lobe atelectasis/pneumonia with small pleural effusions. 3: Cardiomegaly. 4: Infrarenal abdominal aortic aneurysm measuring up to 4.4 cm.
--- NOTE | 2021-12-01 15:35 | ECG_ITS ---
Measurements Intervals English Rate: 113 P: 62 DC: 166 QRS: 255 QRSD: 154 T: 78 QT: 363 QTc: 498 Interpretive Statements ATRIAL SENSE ELECTRONIC VENTRICULAR PACEMAKER ATYPICAL ECG COMPARED TO ECG 07/31/2021 12:36:23 NO SIGNIFICANT CHANGES Electronically Signed On 12-02-2021 11:00:58 CDT by Jovany Mayorga M.D.
--- NOTE | 2021-12-01 15:46 | ED.GENADULT ---
HPI - General Adult General Chief complaint: Unspecified Stated complaint: bud BP high Time Seen by Provider: 12/01/21 15:31 History of Present Illness HPI narrative: 86yoM p/w shaking and chills, his son at bedside states he had been well-appearing about a week ago, when he came home from ? a [facility] facility[facility] He denies any chest pain, shortness of breath, cough, abdominal pain, nausea or vomiting, and per his son at bedside, he have an ulcer to the left heel and sacrum that are both much better appearing than they have ever been. Related Data Home Medications Medication Instructions Recorded Confirmed warfarin 3 mg tablet 3 mg PO DAILY 02/17/21 11/27/21 albuterol sulfate 90 mcg/actuation 2 inh inhalation Q6H PRN 08/31/21 11/27/21 breath activated powder inhaler midodrine 5 mg tablet 5 mg PO TID 08/31/21 11/27/21 omega 6-[id number]-[id number]-fish oil 1,000 mg 1 cap PO DAILY 08/31/21 11/27/21 (120 mg-180 mg) capsule (Fish Oil) Allergies Allergy/AdvReac Type Severity Reaction Status Date / Time prednisolone Allergy Severe Loss of Verified 11/27/21 10:06 Consciousness adhesive tape Allergy Unknown Unknown Verified 11/27/21 10:06 atorvastatin Allergy Unknown Muscle Pain Verified 11/27/21 10:06 flecainide Allergy Unknown FACIAL Verified 11/27/21 10:06 NUMBNESS prednisone Allergy Unknown Unknown Verified 11/27/21 10:06 Review of Systems Review of Systems: CONST: Fever and chills HEENT: No sore throat C/V: No chest pain RESP: No cough GI: No abdominal pain : No dysuria. M/S: Ulcer to left heel SKIN: Ulcer to heel and sacrum NEURO: [No headache or focal numbness or weakness] PSYCH: [No depression] [facility] Past Medical History Medical History Abdominal aortic aneurysm Anemia in chronic kidney disease Aortic valve stenosis, acquired Status post TAVR. Arthritis Atherosclerosis of tanana coronary artery of tanana heart Chronic anticoagulation Chronic atrial fibrillation, unspecified Chronic kidney disease, stage 4 (severe) Baseline creatinine is around 2.90. 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 Diabetic peripheral neuropathy Dyslipidemia Essential tremor Gout Hypertension, essential Nephrolithiasis Paroxysmal atrial fibrillation (12/21/18) Being evaluated for possible ablation. Peripheral vascular disease of lower extremity Persistent atrial fibrillation Polymyalgia rheumatica Type 2 diabetes mellitus Ulcerative colitis Surgical History Surgical History History of cardiac catheterization History of cataract extraction History of colonoscopy with polypectomy History of heart artery stent History of partial colectomy History of transcatheter aortic valve replacement (TAVR) (04/2020) History of umbilical hernia repair History of vascular surgery Multiple lower extremity stents and femoral popliteal bypass. Four and 1 leg and 5 in the other. Status post biventricular pacemaker [employer] biventricular pacemaker 05/2021 AV node ablation June/[address] Beltran at [facility] Family History Family History Sibling Patient's sister is in good health Father Family history of malignant neoplasm of bone Family history of malignant neoplasm Patient's father is , Onset Age: 60 Metastatic bone cancer Mother Family history of coronary artery disease STEMI (ST elevation myocardial infarction) Hypertension Other Family history of arthritis Social History Social History Social History: Surrogate decision maker: Kristi Garcia, . Code status: Full code. Phyllis
[2021-12-01 15:49] LABS: Basophils Percent Auto 0.3 % (0.2-1.2); Hematocrit 37.8 % (42.0-52.0); Hemoglobin 11.2 g/dL (14.0-18.0); Immature Granulocyte Percent A 0.7 % (0-0.5); Lymphocytes Absolute Auto 0.66 K/mm3 (0.9-3.2); Lymphocytes Percent Auto 4.4 % (18.3-44.2); Mean Corpuscular HGB Conc 29.6 g/dl (32-36); Mean Corpuscular Hemoglobin 29.3 pg (26-34); Mean Platelet Volume 11.8 fl (7.4-10.4); Monocytes Absolute Auto 1.4 K/mm3 (0.1-0.6); Neutrophils Percent Auto 85.6 % (45.5-73.1); Platelet Count Result 156 k/mm3 (150-375); Red Blood Count 3.82 M/mm3 (4.6-6.20); Red Cell Distribution Width 15.9 % (11.5-14.5); White Blood Count 15.1 K/mm3 (4.5-10.0)
[2021-12-01 15:59] LABS: Lactic Acid Reflex 2.8 mmol/L (0.7-2.0)
[2021-12-01 16:02] LABS: Alanine Aminotransferase 11 U/L (6-50); Albumin Level 3.8 g/dL (3.5-5.1); Alkaline Phosphatase 126 U/L (38-126); Anion Gap 12 mmol/L (8-16); Aspartate Amino Transferase 16 U/L (17-59); Bilirubin,Total 0.7 mg/dL (0.2-1.3); Blood Urea Nitrogen 38 mg/dL (9-20); Calcium 8.7 mg/dL (8.4-10.2); Carbon Dioxide 21 mmol/L (22-30); Chloride 109 mmol/L (98-107); Estimated CRCL calculation 19 ml/min; Estimated Glomerular Filt Rate 25; Glucose 206 mg/dL (65-110); INR 1.4; Partial Thromboplastin Time 35.1 SECONDS (22.3-36.8); Potassium 4.1 mmol/L (3.4-5.0); Prothrombin Time 16.3 Seconds (11.1-14.7); Sodium 142 mmol/L (137-145)
[2021-12-01] MEDS: LACTATED RINGERS 500 ML 999 ML IV CONT (16:03)
[2021-12-01 16:28] LABS: NT Pro B Type Natriuretic Pept 4780 pg/mL (5-100); Troponin I 0.068 ng/mL (0.000-0.034)
[2021-12-01] MEDS: ASPIRIN 81 MG CHEWABLE TABLET 324 MG PO (16:58)
[2021-12-01 17:38] LABS: Appearance Urine Clear (Clear); Bilirubin Urine Negative (Negative); Blood Urine 2+ (Negative); Color Urine Yellow (Yellow); Glucose Urine UA Negative (Negative); Ketones Urine Negative (Negative); Leukocyte Esterase Ur Trace LEU/UL (Negative); Nitrate Urine Positive (Negative); Protein Urine 2+ mg/dL (Negative); Specific Grav Ur 1.015 (1.001-1.035); Urobilinogen Urine 0.2 mg/dL (<2.0)
[2021-12-01 17:45] LABS: Bacteria Urine Trace /hpf; Mucus Urine Rare /lpf; RBC Urine 0-2 /hpf (0-2)
[2021-12-01 17:47] LABS: Add Urine Microscopic? YES
[2021-12-01] MEDS: cefTRIAXone 2 GM in SODIUM CHLORIDE 0.9% IV 100 ML 200 ML IVPB (18:22)
[2021-12-01 18:46] LABS: Reflex Lactic Acid Yes or No Add Lactic
[2021-12-01 19:30] LABS: Troponin I 0.096 ng/mL (0.000-0.034)
--- NOTE | 2021-12-01 20:11 | PC.NURSE ---
This patient, Cipriano Garcia, was admitted to IMU Room 201-01 on 12/01/21 at 1999. Patient oriented to hospital policies and general routines including ID bracelet, bed and alarms, visiting hours, pain management, procedures, bathroom and other care routines, personal items, smoking policy, room service/diet, and visiting hours. Information on how to activate the Rapid Response Team has been discussed. Patient/Family are encouraged to report perceived risks to care and to ask questions if they do not understand what they are told or what they should do.
--- NOTE | 2021-12-01 20:30 | PM.IMHP ---
H&P: HPI History of Present Illness Date/Time: 12/01/21 20:30 Chief Complaint: Shaking and weakness. Narrative: This is an 86-year-old male?with chronic respiratory failure on 2 L nasal cannula, aortic stenosis status post TAVR, paroxysmal atrial fibrillation, coronary artery disease, peripheral arterial disease, type 2 diabetes, chronic kidney disease, hypertension, dyslipidemia, combined systolic and diastolic congestive heart failure, ulcerative colitis, and other comorbidities who presented to the emergency department for evaluation of weakness and uncontrollable shaking. He recently returned home after nearly a month long stay in the hospital (both here and at [facility]) for a complicated parapneumonic effusion status post chest tube and intrapleural tPA. Thereafter he did rehab for approximately 8 weeks and it sounds as though he has been home for only a week or 2. Home health is coming to help care for pressure wounds in the sacral area and on the heels, the left which required surgical debridement. It is my understanding that just today he started to feel bad with chills, uncontrollable shaking, and weakness. Temperature was 99.8? F on arrival and his other vital signs are stable. Workup demonstrated findings of a possible urinary tract infection however he denies dysuria, urgency, frequency, etc.. Initial lactic acid level was 2.8 however did normalize after receiving IV fluid bolus. Chest x-ray thereafter showed findings loss prevention representative interstitial edema as well as a small left pleural effusion versus chronic pleural scarring. He is being admitted for further treatment and evaluation with a working diagnosis of possible urinary tract infection. Troponins were also mildly elevated however the patient has no chest pain whatsoever. Review of Systems Review of Systems: Twelve systems were reviewed. No headache or neck ache. No sinus congestion or sore throat. Mild, nonproductive cough. He has chronic shortness of breath which is unchanged and he is at his baseline oxygen requirement. No chest pain or pleuritic pain. He denies abdominal pain but is a bit tender to palpation in the left flank. Appetite has been okay. Denies dysphagia. Denies UTI symptoms. No pain with pressure sores on the coccyx and heels. Except as documented, all other systems were reviewed and are negative. [facility] Past Medical History Medical History (Updated 12/01/21 @ 23:35 by Kiana Strong PA-C) Abdominal aortic aneurysm Anemia in chronic kidney disease Aortic valve stenosis, acquired Status post TAVR. Arthritis Atherosclerosis of [place] coronary artery of [place] heart Chronic anticoagulation Chronic atrial fibrillation, unspecified Chronic kidney disease, stage 4 (severe) Baseline creatinine is around 2.90. 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 Diabetic peripheral neuropathy Dyslipidemia Essential tremor Gout Hypertension, essential Loculated pleural effusion (07/2021) Nephrolithiasis Parapneumonic effusion (07/2021) Status post chest tube and intrapleural tPA. Paroxysmal atrial fibrillation (12/21/18) Being evaluated for possible ablation. Peripheral vascular disease of lower extremity Persistent atrial fibrillation Polymyalgia rheumatica Type 2 diabetes mellitus Ulcerative colitis Surgical History Surgical History History of cardiac catheterization History of cataract extraction History of colonoscopy with polypectomy History of heart artery stent History of partial colectomy History of transcatheter aortic valve replacement (TAVR) (04/2020) History of umbilical hernia repair History of vascular surgery Multiple lower extremity stents and femoral popliteal bypass. Four and 1 leg and 5 in th
--- NOTE | 2021-12-01 23:27 | PC.NURSE ---
Patient voided in the urinal and was noted to have hematuria and what appears to be some kind of stone. Kiana JACK notified. Patient taken down for a CT of the abdomen. Also, the object was placed in a sterile speciman cup and taken down to the lab for pathology consult. Container labeled with date, time, and Galina Velázquez RN.
--- NOTE | 2021-12-01 23:30 | PC.NURSE ---
Kiana JACK notified that CT abdomen is complete and the report is on the chart. I reviewed the report with her.
[2021-12-01 23:44] LABS: Influenza A QL RT-PCR Negative (Negative); Influenza B QL RT-PCR Negative (Negative); SARS-CoV-2 RNA PCR Negative
[2021-12-02] VITALS (17 sets, daily range): BP systolic 115–149; BP diastolic 40–56; PULSE 60–83; RESP 16–20; TEMP 36.3–37.3; O2SAT 92–99
[2021-12-02 00:50] LABS: Troponin I 0.197 ng/mL (0.000-0.034)
[2021-12-02 05:17] LABS: Hematocrit 32.4 % (42.0-52.0); Hemoglobin 9.6 g/dL (14.0-18.0); Mean Corpuscular HGB Conc 29.6 g/dl (32-36); Mean Corpuscular Hemoglobin 29.1 pg (26-34); Mean Corpuscular Volume 98.2 fl (80-100); Mean Platelet Volume 12.5 fl (7.4-10.4); Platelet Count Result 116 k/mm3 (150-375); Red Cell Distribution Width 16.1 % (11.5-14.5); White Blood Count 14.8 K/mm3 (4.5-10.0)
[2021-12-02 05:28] LABS: Alanine Aminotransferase 11 U/L (6-50); Alkaline Phosphatase 141 U/L (38-126); Anion Gap 8 mmol/L (8-16); Aspartate Amino Transferase 22 U/L (17-59); Bilirubin,Total 0.2 mg/dL (0.2-1.3); Blood Urea Nitrogen 45 mg/dL (9-20); Calcium 8.1 mg/dL (8.4-10.2); Carbon Dioxide 21 mmol/L (22-30); Chloride 111 mmol/L (98-107); Estimated CRCL calculation 18 ml/min; Estimated Glomerular Filt Rate 24; Glucose 246 mg/dL (65-110); Magnesium 2.2 mg/dL (1.6-2.3); Potassium 4.6 mmol/L (3.4-5.0); Sodium 140 mmol/L (137-145)
--- NOTE | 2021-12-02 05:48 | PC.NURSE ---
Patient just voided in urinal. No further hematuria noted. Urine was strained and there are no stones.
[2021-12-02 06:10] LABS: Thyroid Stimulating Hormone Reflex 0.164 uIU/mL (0.465-4.68)
--- NOTE | 2021-12-02 07:39 | PM.IMPN ---
Progress Note: A&P Assessment and Plan (1) Sepsis: Qualifiers: Sepsis type: sepsis due to unspecified organism Sepsis acute organ dysfunction status: unspecified Qualified Code(s): A41.9 - Sepsis, unspecified organism Code(s): A41.9 - Sepsis, unspecified organism Status: Acute Assessment and Plan: On admission, HR>90, WBC>14, lactic acid 2.8, +UA for infection and now with +blood cultures. -Continue antibiotics. -Monitor hemodynamics. (2) Bacteremia due to Gram-negative bacteria: Code(s): R78.81 - Bacteremia Status: Acute Assessment and Plan: Blood cultures 2 of 2 bottles positive for gram negative bacilli. Likely urinary source. - Continue Rocephin 2 grams IV Q24 hours x 14 days. - Repeat blood cultures tomorrow to ensure appropriate antibiotic coverage and adjust per results. (3) Abnormal urinalysis: Code(s): R82.90 - Unspecified abnormal findings in urine Status: Acute Assessment and Plan: He denies UTI symptoms however his UA demonstrates 2+ blood, positive nitrates, trace leukocyte esterase, 79 wbc's, and trace bacteria. Bladder wall thickening noted on CT scan, suggestive of infection and blood cultures x2 with gram negative bacilli growth within 24 hours. -continue antibiotics, increase to 2 grams Rocephin Q24 hours given bacteremia. -adjust antibiotics per urine culture. He will need at least 14 days IV antibiotics. -microscopic hematuria noted. CT A/P with multiple simple renal cysts, noted previously, as well as hemorrhagic cyst. H/H stable and asymptomatic. Likely secondary to recent rupture. Continue to monitor. (4) Generalized weakness: Code(s): R53.1 - Weakness Status: Acute Assessment and Plan: He had a nearly month long stay in the hospital between July and August and just recently returned home from an 8 week stay at rehab. Likely from an underlying infection. - Consult PT/OT - Initiate fall precautions. (5) Chronic combined systolic and diastolic congestive heart failure: Code(s): I50.42 - Chronic combined systolic (congestive) and diastolic (congestive) heart failure Status: Chronic Assessment and Plan: Lower extremities are edematous on exam and chest x-ray shows interstitial edema. pro-BNP 4780. -Hold IV fluids -continue p.o. bumetanide. Consider changing to IV if poor response. -continue nitrates. He is not currently on a beta-dorian or erika-inhibitor. -monitor strict I/O and daily weights. (6) Elevated troponin: Code(s): R77.8 - Other specified abnormalities of plasma proteins Status: Acute Assessment and Plan: No complaints of chest pain and likely these are elevated from demand ischemia in the setting of congestive heart failure, chronic renal disease, and sepsis. - EKG showing a ventricular paced rhythm. - troponin I 0.068 to 0.096 to 0.19 to 0.5. Discuss[address] with Dr. Mayorga, Cardiology and will manage medically and monitor at this time. - ASA 325 mg PO x1 given. (7) Peripheral vascular disease of lower extremity: Code(s): I73.9 - Peripheral vascular disease, unspecified Status: Acute Assessment and Plan: Patient with h/o Fem-pop bypass and multiple arterial stents to both legs. -Venous US concerning for occluded stent with questionable hematoma. Unknown chronicity. Discussed with Dr. Mayorga, Cardiology who recommended CT scan RLE. INR 1.4. Discussed heparin drip for occlusion, however, given possible hematoma and unknown chronicity. Recommended to continue warfarin at this time. -CT RLE with 3 cm blood pooling noted between stents R superficial femoral artery, arterial US recommended to rule out pseudoaneurysm. -Arterial US ordered and pending. (8) Subtherapeutic anticoagulation: Code(s): Z51.81 - Encounter for therapeutic drug level monitoring; Z79.01 - manager intermediate (current) use of anticoagulants Status: Acute
[2021-12-02 07:41] LABS: Free T4 Free Thyroxine Reflex 1.42 ng/dL (0.78-2.19)
[2021-12-02 08:02] LABS: Glucose Point of Care 225 mg/dl (65-105)
[2021-12-02 08:43] LABS: Total Triiodothyronine (T3) 0.42 NG/ML (0.97-1.69)
[2021-12-02] MEDS: OMEGA 3 POLYUNSAT FATTY ACIDS 1 GM CAP PO (09:33)
[2021-12-02] MEDS: ISOSORBIDE MONONITRATE 30 MG TAB.ER.24H PO (09:33)
[2021-12-02] MEDS: FEBUXOSTAT 40 MG TABLET PO (09:33)
[2021-12-02] MEDS: ASCORBIC ACID 500 MG TABLET 1000 MG PO (09:33)
[2021-12-02] MEDS: guaiFENesin 12 HR 600 MG TABCR PO (09:34)
[2021-12-02] MEDS: TOPIRAMATE 25 MG TABLET PO ×2 (09:34→17:11)
[2021-12-02] MEDS: BUMETANIDE 1 MG TABLET 2 MG PO (09:34)
[2021-12-02] MEDS: FERROUS SULFATE 324 MG TABLET PO (09:34)
[2021-12-02] MEDS: amLODIPine BESYLATE 5 MG TABLET PO (09:34)
[2021-12-02] MEDS: INSULIN ASPART (*BKC) 100 UNITS/ML SUB-Q ×2 (09:35→17:39)
[2021-12-02] MEDS: INSULIN GLARGINE (*BKC) 100 UNITS/ML 20 UNITS SUB-Q (09:39)
[2021-12-02 10:03] LABS: INR 1.3; Prothrombin Time 15.3 Seconds (11.1-14.7)
[2021-12-02 10:16] LABS: Troponin I 0.503 ng/mL (0.000-0.034)
[2021-12-02] MEDS: CALCIUM CARBONATE (TUMS) 500 MG (200 MG ELEMENTAL) PO (11:00)
[2021-12-02] MEDS: ASPIRIN 325 MG TABLET PO (11:00)
[2021-12-02] MEDS: UMECLIDINIUM BROMIDE 62.5 MCG ELLIPTA 2 PUFF INHALATION (11:26)
[2021-12-02 17:01] LABS: Glucose Point of Care 242 mg/dl (65-105)
[2021-12-02] MEDS: WARFARIN (*PBKC) 3 MG TABLET PO (17:10)
[2021-12-02] MEDS: WARFARIN (*PBKC) 4 MG TABLET PO (17:10)
[2021-12-02] MEDS: cefTRIAXone 2 GM in SODIUM CHLORIDE 0.9% IV 100 ML 200 ML IVPB (17:13)
[2021-12-02 18:51] LABS: Glucose Point of Care 226 mg/dl (65-105)
[2021-12-02 20:06] LABS: Glucose Point of Care 216 mg/dl (65-105)
[2021-12-02] MEDS: MELATONIN 5 MG TABLET PO (22:58)
[2021-12-03] VITALS (20 sets, daily range): BP systolic 131–161; BP diastolic 36–76; PULSE 60–85; RESP 14–20; TEMP 36.3–37.1; O2SAT 91–100; BMI 26.1
[2021-12-03 05:20] LABS: Basophils Percent Auto 0.3 % (0.2-1.2); Eosinophils Absolute Auto 0.1 K/mm3 (0-0.3); Eosinophils Percent Auto 0.4 % (0-4.4); Hematocrit 33.7 % (42.0-52.0); Hemoglobin 9.8 g/dL (14.0-18.0); Immature Granulocyte Absolute 0.07 K/mm3 (0.00-0.031); Immature Granulocyte Percent A 0.6 % (0-0.5); Lymphocytes Absolute Auto 0.68 K/mm3 (0.9-3.2); Lymphocytes Percent Auto 5.8 % (18.3-44.2); Mean Corpuscular HGB Conc 29.1 g/dl (32-36); Mean Corpuscular Volume 99.7 fl (80-100); Monocytes Absolute Auto 1.1 K/mm3 (0.1-0.6); Monocytes Percent Auto 9.4 % (2.6-8.5); Neutrophils Absolute Auto 9.8 K/mm3 (1.3-6.7); Neutrophils Percent Auto 83.5 % (45.5-73.1); Platelet Count Result 132 k/mm3 (150-375); Red Blood Count 3.38 M/mm3 (4.6-6.20); White Blood Count 11.8 K/mm3 (4.5-10.0)
[2021-12-03 05:32] LABS: Alanine Aminotransferase 12 U/L (6-50); Albumin Level 2.8 g/dL (3.5-5.1); Alkaline Phosphatase 139 U/L (38-126); Anion Gap 4 mmol/L (8-16); Aspartate Amino Transferase 21 U/L (17-59); Bilirubin,Total 0.2 mg/dL (0.2-1.3); Blood Urea Nitrogen 49 mg/dL (9-20); Calcium 8.5 mg/dL (8.4-10.2); Carbon Dioxide 27 mmol/L (22-30); Chloride 111 mmol/L (98-107); Estimated CRCL calculation 17 ml/min; Estimated Glomerular Filt Rate 22; Glucose 159 mg/dL (65-110); Potassium 4.1 mmol/L (3.4-5.0); Sodium 142 mmol/L (137-145)
[2021-12-03 05:37] LABS: INR 1.3; Prothrombin Time 16.1 Seconds (11.1-14.7)
[2021-12-03 07:19] LABS: Platelet Estimate Adequate (Adequate)
[2021-12-03 07:20] LABS: Poikilocytosis 1+ (NORMAL)
[2021-12-03 07:21] LABS: Ovalocytes 1+ (NORMAL)
[2021-12-03 07:22] LABS: Anisocytosis 1+ (NORMAL)
[2021-12-03 07:50] LABS: Glucose Point of Care 150 mg/dl (65-105)
[2021-12-03] MEDS: UMECLIDINIUM BROMIDE 62.5 MCG ELLIPTA 2 PUFF INHALATION (08:17)
[2021-12-03] MEDS: OMEGA 3 POLYUNSAT FATTY ACIDS 1 GM CAP PO (09:06)
[2021-12-03] MEDS: CALCIUM CARBONATE (TUMS) 500 MG (200 MG ELEMENTAL) PO (09:06)
[2021-12-03] MEDS: TOPIRAMATE 25 MG TABLET PO ×2 (09:06→18:02)
[2021-12-03] MEDS: BUMETANIDE 1 MG TABLET 2 MG PO (09:07)
[2021-12-03] MEDS: FERROUS SULFATE 324 MG TABLET PO (09:07)
[2021-12-03] MEDS: FEBUXOSTAT 40 MG TABLET PO (09:07)
[2021-12-03] MEDS: ASCORBIC ACID 500 MG TABLET 1000 MG PO (09:07)
[2021-12-03] MEDS: amLODIPine BESYLATE 5 MG TABLET PO (09:07)
[2021-12-03] MEDS: ISOSORBIDE MONONITRATE 30 MG TAB.ER.24H PO (09:08)
[2021-12-03] MEDS: INSULIN GLARGINE (*BKC) 100 UNITS/ML 20 UNITS SUB-Q (09:08)
[2021-12-03] MEDS: guaiFENesin 12 HR 600 MG TABCR PO ×2 (09:13→21:07)
[2021-12-03] MEDS: TOLNAFTATE 1% POWDER 45 GM BTL 1 APPLIC TOPICAL ×2 (12:03→21:08)
[2021-12-03 12:06] LABS: Glucose Point of Care 148 mg/dl (65-105)
--- NOTE | 2021-12-03 14:27 | PM.IMPN ---
Progress Note: A&P Assessment and Plan (1) Sepsis: Qualifiers: Sepsis acute organ dysfunction status: unspecified Sepsis type: sepsis due to unspecified organism Qualified Code(s): A41.9 - Sepsis, unspecified organism Code(s): A41.9 - Sepsis, unspecified organism Status: Acute Assessment and Plan: On admission, HR>90, WBC>14, lactic acid 2.8, +UA for infection and now with +blood cultures. -Continue antibiotics. -Monitor hemodynamics. Vital stable. -If remains stable for 24 hours will downgrade to Med/Surg status. (2) Bacteremia due to Gram-negative bacteria: Code(s): R78.81 - Bacteremia Status: Acute Assessment and Plan: Blood cultures 2 of 2 bottles positive for gram negative bacilli, preliminary growth +klebsiella. From UTI- urine culture +klebsiella. Sensitive to Rocephin. - Continue Rocephin 2 grams IV Q24 hours x 14 days. He will need at least 14 days of antibiotics IV. - Repeat blood cultures tonight at 1800 (48 hours from initiation of antibiotics). (3) Acute UTI: Code(s): N39.0 - Urinary tract infection, site not specified Status: Acute Assessment and Plan: UA demonstrates 2+ blood, positive nitrates, trace leukocyte esterase, 79 wbc's, and trace bacteria. Bladder wall thickening noted on CT scan, suggestive of infection and blood cultures x2 with gram negative bacilli growth within 24 hours. -continue 2 grams Rocephin Q24 hours given bacteremia. Continue 14 days IV antibiotics. -Urine cultures shows klebsiella growth sensitive to Rocephin. -microscopic hematuria noted. CT A/P with multiple simple renal cysts, noted previously, as well as hemorrhagic cyst. H/H stable and asymptomatic. Likely secondary to cyst rupture. Continue to monitor. (4) Generalized weakness: Code(s): R53.1 - Weakness Status: Acute Assessment and Plan: He had a nearly month long stay in the hospital between July and August and just recently returned home from an 8 week stay at rehab. Likely from an underlying infection. - PT/OT consulted. Patient appropriate for outpatient therapy. - Initiate fall precautions. (5) Chronic combined systolic and diastolic congestive heart failure: Code(s): I50.42 - Chronic combined systolic (congestive) and diastolic (congestive) heart failure Status: Chronic Assessment and Plan: Lower extremities are edematous on exam and chest x-ray shows interstitial edema. pro-BNP 4780. -continue p.o. bumetanide. -continue nitrates. He is not currently on a beta-dorian or erika-inhibitor. -monitor strict I/O and daily weights. -Stable. On home O2 requirements. (6) Elevated troponin: Code(s): R77.8 - Other specified abnormalities of plasma proteins Status: Acute Assessment and Plan: No complaints of chest pain and likely these are elevated from demand ischemia in the setting of congestive heart failure, chronic renal disease, and sepsis. - EKG showing a ventricular paced rhythm. - troponin I 0.068 to 0.096 to 0.19 to 0.5. Discussed with Cardiology on 12/02 and will manage medically and monitor at this time. - Consider starting baby aspirin if lower extremity hematoma versus pseudoaneurysm stable. (7) Peripheral vascular disease of lower extremity: Code(s): I73.9 - Peripheral vascular disease, unspecified Status: Acute Assessment and Plan: Patient with h/o Fem-pop bypass and multiple arterial stents to both legs. -Venous US concerning for occluded stent with questionable hematoma. Unknown chronicity. Discussed with Dr. Mayorga, Cardiology who recommended CT scan RLE. INR 1.4. Discussed heparin drip for occlusion, however, given possible hematoma and unknown chronicity. Recommended to continue warfarin at this time. -CT RLE with 3 cm blood pooling noted between stents R superficial femoral artery, arterial US recommended to rule out pseudoaneurysm. -Comparison betw
[2021-12-03] MEDS: SILVERGEL (ELTA) 45 ML 1 APPLIC TOPICAL (15:35)
[2021-12-03] MEDS: HYDROcodone/acetaminophen (*CRX) 10-325 MG TABLET 1 TAB PO ×2 (15:50→21:07)
[2021-12-03 16:03] LABS: Glucose Point of Care 247 mg/dl (65-105)
[2021-12-03] MEDS: cefTRIAXone 2 GM in SODIUM CHLORIDE 0.9% IV 100 ML IVPB (18:02)
[2021-12-03] MEDS: WARFARIN (*PBKC) 3 MG TABLET PO (18:02)
[2021-12-03] MEDS: WARFARIN (*PBKC) 4 MG TABLET PO (18:02)
[2021-12-03] MEDS: INSULIN ASPART (*BKC) 100 UNITS/ML SUB-Q (18:03)
[2021-12-03] MEDS: MELATONIN 5 MG TABLET PO (21:07)
[2021-12-03] MEDS: GABAPENTIN 300 MG CAPSULE PO (21:07)
[2021-12-03] MEDS: CARBIDOPA/LEVODOPA 25/100 MG TABLET 1 TABLET PO (21:07)
[2021-12-03 21:15] LABS: Glucose Point of Care 178 mg/dl (65-105)
[2021-12-04] VITALS (12 sets, daily range): BP systolic 125–151; BP diastolic 44–68; PULSE 60–80; RESP 14–20; TEMP 36.1–37.1; O2SAT 94–100
[2021-12-04 05:07] LABS: Basophils Percent Auto 0.2 % (0.2-1.2); Eosinophils Absolute Auto 0.2 K/mm3 (0-0.3); Eosinophils Percent Auto 2.3 % (0-4.4); Hematocrit 33.9 % (42.0-52.0); Hemoglobin 10.2 g/dL (14.0-18.0); Immature Granulocyte Absolute 0.02 K/mm3 (0.00-0.031); Immature Granulocyte Percent A 0.2 % (0-0.5); Lymphocytes Absolute Auto 0.54 K/mm3 (0.9-3.2); Lymphocytes Percent Auto 6.2 % (18.3-44.2); Mean Corpuscular HGB Conc 30.1 g/dl (32-36); Mean Corpuscular Hemoglobin 28.8 pg (26-34); Mean Corpuscular Volume 95.8 fl (80-100); Mean Platelet Volume 12.5 fl (7.4-10.4); Monocytes Absolute Auto 0.8 K/mm3 (0.1-0.6); Monocytes Percent Auto 9.3 % (2.6-8.5); Neutrophils Absolute Auto 7.2 K/mm3 (1.3-6.7); Neutrophils Percent Auto 81.8 % (45.5-73.1); Platelet Count Result 155 k/mm3 (150-375); Red Blood Count 3.54 M/mm3 (4.6-6.20); Red Cell Distribution Width 15.8 % (11.5-14.5); White Blood Count 8.8 K/mm3 (4.5-10.0)
[2021-12-04 05:19] LABS: INR 1.4; Prothrombin Time 16.2 Seconds (11.1-14.7)
[2021-12-04 05:26] LABS: Anion Gap 6 mmol/L (8-16); Blood Urea Nitrogen 51 mg/dL (9-20); Calcium 8.6 mg/dL (8.4-10.2); Carbon Dioxide 27 mmol/L (22-30); Chloride 109 mmol/L (98-107); Estimated CRCL calculation 19 ml/min; Estimated Glomerular Filt Rate 25; Glucose 115 mg/dL (65-110); Magnesium 2.4 mg/dL (1.6-2.3); Potassium 3.8 mmol/L (3.4-5.0); Sodium 142 mmol/L (137-145)
[2021-12-04] MEDS: CARBIDOPA/LEVODOPA 25/100 MG TABLET 1 TABLET PO ×3 (05:46→20:28)
[2021-12-04 05:59] LABS: Troponin I 0.196 ng/mL (0.000-0.034)
[2021-12-04 07:34] LABS: Glucose Point of Care 120 mg/dl (65-105)
[2021-12-04] MEDS: UMECLIDINIUM BROMIDE 62.5 MCG ELLIPTA 2 PUFF INHALATION (08:18)
--- NOTE | 2021-12-04 08:52 | PM.IMPN ---
Progress Note: A&P Assessment and Plan (1) Sepsis: Qualifiers: Sepsis acute organ dysfunction status: unspecified Sepsis type: sepsis due to unspecified organism Qualified Code(s): A41.9 - Sepsis, unspecified organism Code(s): A41.9 - Sepsis, unspecified organism Status: Acute Assessment and Plan: On admission, HR>90, WBC>14, lactic acid 2.8, +UA for infection and now with +blood cultures. -Continue antibiotics. -Monitor hemodynamics. Vital stable. -downgrade to Med/Surg status. (2) Bacteremia due to Gram-negative bacteria: Code(s): R78.81 - Bacteremia Status: Acute Assessment and Plan: Blood cultures 2 of 2 bottles positive for gram negative bacilli, preliminary growth +klebsiella. From UTI- urine culture +klebsiella. Sensitive to Rocephin. - Continue Rocephin 2 grams IV Q24 hours, which is sensitive. He will need IV antibiotics outpatient. - Repeat blood cultures pending from 12/03 at 1800 (48 hours from initiation of antibiotics) and preliminary negative. - Will plan for PICC placement tomorrow if still negative. (3) Acute UTI: Code(s): N39.0 - Urinary tract infection, site not specified Status: Acute Assessment and Plan: UA demonstrates 2+ blood, positive nitrates, trace leukocyte esterase, 79 wbc's, and trace bacteria. Bladder wall thickening noted on CT scan, suggestive of infection and blood cultures x2 with gram negative bacilli growth within 24 hours. -continue 2 grams Rocephin Q24 hours given bacteremia as above. -Urine cultures shows klebsiella growth sensitive to Rocephin. -microscopic hematuria noted. CT A/P with multiple simple renal cysts, noted previously, as well as hemorrhagic cyst. H/H stable and asymptomatic. Likely secondary to cyst rupture. Continue to monitor. Stable. (4) Generalized weakness: Code(s): R53.1 - Weakness Status: Acute Assessment and Plan: He had a nearly month long stay in the hospital between July and August and just recently returned home from an 8 week stay at rehab. Likely from an underlying infection. - PT/OT consulted. Patient appropriate for outpatient therapy. - fall precautions. (5) Chronic combined systolic and diastolic congestive heart failure: Code(s): I50.42 - Chronic combined systolic (congestive) and diastolic (congestive) heart failure Status: Chronic Assessment and Plan: Lower extremities are edematous on exam and chest x-ray shows interstitial edema. pro-BNP 4780. -continue p.o. bumetanide. -continue nitrates. He is not currently on a beta-dorian or erika-inhibitor. -monitor strict I/O and daily weights. -Stable. On home O2 requirements. (6) Elevated troponin: Code(s): R77.8 - Other specified abnormalities of plasma proteins Status: Acute Assessment and Plan: No complaints of chest pain and likely these are elevated from demand ischemia in the setting of congestive heart failure, chronic renal disease, and sepsis. - EKG showing a ventricular paced rhythm. - troponin I 0.068 to 0.096 to 0.19 to 0.5 to 0.19. Discussed with Cardiology on 12/02 and will manage medically and monitor at this time - Likely secondary to demand ischemia. (7) Peripheral vascular disease of lower extremity: Code(s): I73.9 - Peripheral vascular disease, unspecified Status: Acute Assessment and Plan: Patient with h/o Fem-pop bypass and multiple arterial stents to both legs. -Venous US concerning for occluded stent with questionable hematoma. Unknown chronicity. Discussed with Dr. Mayorga, Cardiology who recommended CT scan RLE. INR 1.4. Discussed heparin drip for occlusion, however, given possible hematoma and unknown chronicity. Recommended to continue warfarin at this time. -CT RLE with 3 cm blood pooling noted between stents R superficial femoral artery, arterial US recommended to rule out pseudoaneurysm. -Comparison between CT and
[2021-12-04] MEDS: GABAPENTIN 300 MG CAPSULE PO ×2 (10:02→20:27)
[2021-12-04] MEDS: ISOSORBIDE MONONITRATE 30 MG TAB.ER.24H PO (10:03)
[2021-12-04] MEDS: OMEGA 3 POLYUNSAT FATTY ACIDS 1 GM CAP PO (10:03)
[2021-12-04] MEDS: TOPIRAMATE 25 MG TABLET PO ×2 (10:03→18:24)
[2021-12-04] MEDS: guaiFENesin 12 HR 600 MG TABCR PO ×2 (10:04→20:28)
[2021-12-04] MEDS: amLODIPine BESYLATE 5 MG TABLET PO (10:04)
[2021-12-04] MEDS: CALCIUM CARBONATE (TUMS) 500 MG (200 MG ELEMENTAL) PO (10:04)
[2021-12-04] MEDS: ASCORBIC ACID 500 MG TABLET 1000 MG PO (10:04)
[2021-12-04] MEDS: FEBUXOSTAT 40 MG TABLET PO (10:04)
[2021-12-04] MEDS: FERROUS SULFATE 324 MG TABLET PO (10:05)
[2021-12-04] MEDS: BUMETANIDE 1 MG TABLET 2 MG PO (10:05)
[2021-12-04] MEDS: SILVERGEL (ELTA) 45 ML 1 APPLIC TOPICAL (10:06)
[2021-12-04] MEDS: TOLNAFTATE 1% POWDER 45 GM BTL 1 APPLIC TOPICAL ×2 (10:06→20:28)
[2021-12-04] MEDS: INSULIN GLARGINE (*BKC) 100 UNITS/ML 20 UNITS SUB-Q (10:24)
[2021-12-04 12:03] LABS: Glucose Point of Care 248 mg/dl (65-105)
[2021-12-04] MEDS: INSULIN ASPART (*BKC) 100 UNITS/ML SUB-Q (13:14)
[2021-12-04 17:10] LABS: Glucose Point of Care 164 mg/dl (65-105)
[2021-12-04] MEDS: WARFARIN (*PBKC) 4 MG TABLET PO (18:23)
[2021-12-04] MEDS: WARFARIN (*PBKC) 3 MG TABLET PO (18:24)
[2021-12-04] MEDS: cefTRIAXone 2 GM in SODIUM CHLORIDE 0.9% IV 100 ML 200 ML IVPB (18:24)
[2021-12-04] MEDS: MELATONIN 5 MG TABLET PO (20:27)
[2021-12-04] MEDS: HYDROcodone/acetaminophen (*CRX) 10-325 MG TABLET 1 TAB PO (20:27)
[2021-12-04 20:57] LABS: Glucose Point of Care 257 mg/dl (65-105)
[2021-12-05] VITALS (9 sets, daily range): BP systolic 143–165; BP diastolic 51–93; PULSE 60–75; RESP 17–22; TEMP 36.4–37.4; O2SAT 96–99
[2021-12-05 05:07] LABS: Basophils Percent Auto 0.4 % (0.2-1.2); Eosinophils Absolute Auto 0.2 K/mm3 (0-0.3); Eosinophils Percent Auto 2.6 % (0-4.4); Hematocrit 33.2 % (42.0-52.0); Hemoglobin 9.8 g/dL (14.0-18.0); Immature Granulocyte Absolute 0.04 K/mm3 (0.00-0.031); Immature Granulocyte Percent A 0.5 % (0-0.5); Lymphocytes Absolute Auto 0.81 K/mm3 (0.9-3.2); Lymphocytes Percent Auto 10.3 % (18.3-44.2); Mean Corpuscular HGB Conc 29.5 g/dl (32-36); Mean Corpuscular Hemoglobin 28.9 pg (26-34); Mean Corpuscular Volume 97.9 fl (80-100); Mean Platelet Volume 12.3 fl (7.4-10.4); Monocytes Absolute Auto 0.9 K/mm3 (0.1-0.6); Monocytes Percent Auto 11.9 % (2.6-8.5); Neutrophils Absolute Auto 5.8 K/mm3 (1.3-6.7); Neutrophils Percent Auto 74.3 % (45.5-73.1); Platelet Count Result 159 k/mm3 (150-375); Red Blood Count 3.39 M/mm3 (4.6-6.20); Red Cell Distribution Width 15.8 % (11.5-14.5); White Blood Count 7.8 K/mm3 (4.5-10.0)
[2021-12-05 05:17] LABS: INR 1.7; Prothrombin Time 19.2 Seconds (11.1-14.7)
[2021-12-05 05:41] LABS: Anion Gap 6 mmol/L (8-16); Blood Urea Nitrogen 65 mg/dL (9-20); Calcium 8.5 mg/dL (8.4-10.2); Carbon Dioxide 26 mmol/L (22-30); Chloride 108 mmol/L (98-107); Estimated CRCL calculation 20 ml/min; Estimated Glomerular Filt Rate 26; Glucose 151 mg/dL (65-110); Potassium 3.8 mmol/L (3.4-5.0); Sodium 140 mmol/L (137-145)
[2021-12-05] MEDS: CARBIDOPA/LEVODOPA 25/100 MG TABLET 1 TABLET PO ×3 (05:44→21:18)
[2021-12-05 08:21] LABS: Glucose Point of Care 144 mg/dl (65-105)
[2021-12-05] MEDS: UMECLIDINIUM BROMIDE 62.5 MCG ELLIPTA 2 PUFF INHALATION (09:33)
--- NOTE | 2021-12-05 09:59 | PM.IMPN ---
Progress Note: A&P Assessment and Plan (1) Sepsis: Qualifiers: Sepsis acute organ dysfunction status: unspecified Sepsis type: sepsis due to unspecified organism Qualified Code(s): A41.9 - Sepsis, unspecified organism Code(s): A41.9 - Sepsis, unspecified organism Status: Acute Assessment and Plan: On admission, HR>90, WBC>14, lactic acid 2.8, +UA for infection and now with +blood cultures. -Resolved. -Continue antibiotics. -Med/Surg status. (2) Bacteremia due to Gram-negative bacteria: Code(s): R78.81 - Bacteremia Status: Acute Assessment and Plan: Blood cultures 2 of 2 bottles positive for gram negative bacilli, preliminary growth +klebsiella. From UTI- urine culture +klebsiella. Sensitive to Rocephin. - Continue Rocephin 2 grams IV Q24 hours, which is sensitive. He will need IV antibiotics outpatient. - Repeat blood cultures from 12/03 at 1800 shows one of two bottles with gram positive cocci and one bottle without growth. This is presumed to be contaminant as it is only in one bottle and a different bacteria from previous sets. Will hold off on PICC placement until microbe is confirmed as normal bea contaminant, or negative blood cultures drawn today 12/05. - Case discussed with [facility] clinical pharmacist who recommends 10 days Rocephin 2 grams Q24 hours treatment total (started 12/01/21). Patient has been instructed on IV medication administration and he plans to do this at home with the assistance of his son. (3) Acute UTI: Code(s): N39.0 - Urinary tract infection, site not specified Status: Acute Assessment and Plan: UA demonstrates 2+ blood, positive nitrates, trace leukocyte esterase, 79 wbc's, and trace bacteria. Bladder wall thickening noted on CT scan, suggestive of infection and blood cultures x2 with gram negative bacilli growth within 24 hours. -continue 2 grams Rocephin Q24 hours given bacteremia as above. -Urine cultures shows klebsiella growth sensitive to Rocephin. -microscopic hematuria noted. CT A/P with multiple simple renal cysts, noted previously, as well as hemorrhagic cyst. H/H stable and asymptomatic. Likely secondary to cyst rupture. Continue to monitor. Stable. (4) Generalized weakness: Code(s): R53.1 - Weakness Status: Acute Assessment and Plan: He had a nearly month long stay in the hospital between July and August and just recently returned home from an 8 week stay at rehab. Likely from an underlying infection. - PT/OT consulted. Patient appropriate for outpatient therapy. - fall precautions. (5) Chronic combined systolic and diastolic congestive heart failure: Code(s): I50.42 - Chronic combined systolic (congestive) and diastolic (congestive) heart failure Status: Chronic Assessment and Plan: Lower extremities are edematous on exam and chest x-ray shows interstitial edema. pro-BNP 4780. -continue p.o. bumetanide. -continue nitrates. He is not currently on a beta-dorian or erika-inhibitor. -monitor strict I/O and daily weights. -Stable. On home O2 requirements. (6) Elevated troponin: Code(s): R77.8 - Other specified abnormalities of plasma proteins Status: Acute Assessment and Plan: No complaints of chest pain and likely these are elevated from demand ischemia in the setting of congestive heart failure, chronic renal disease, and sepsis. - EKG showing a ventricular paced rhythm. - troponin I 0.068 to 0.096 to 0.19 to 0.5 to 0.19. Discussed with Cardiology on 12/02 and will manage medically and monitor at this time - Likely secondary to demand ischemia. Troponin trending down and no chest pain at this time. (7) Peripheral vascular disease of lower extremity: Code(s): I73.9 - Peripheral vascular disease, unspecified Status: Acute Assessment and Plan: Patient with h/o Fem-pop bypass and multiple arterial stents to both legs. -Venous US con
[2021-12-05] MEDS: CALCIUM CARBONATE (TUMS) 500 MG (200 MG ELEMENTAL) PO (10:27)
[2021-12-05] MEDS: guaiFENesin 12 HR 600 MG TABCR PO ×2 (10:29→21:18)
[2021-12-05] MEDS: TOPIRAMATE 25 MG TABLET PO ×2 (10:29→17:02)
[2021-12-05] MEDS: FEBUXOSTAT 40 MG TABLET PO (10:29)
[2021-12-05] MEDS: BUMETANIDE 1 MG TABLET 2 MG PO (10:29)
[2021-12-05] MEDS: OMEGA 3 POLYUNSAT FATTY ACIDS 1 GM CAP PO (10:29)
[2021-12-05] MEDS: ISOSORBIDE MONONITRATE 30 MG TAB.ER.24H PO (10:30)
[2021-12-05] MEDS: ASCORBIC ACID 500 MG TABLET 1000 MG PO (10:30)
[2021-12-05] MEDS: GABAPENTIN 300 MG CAPSULE PO ×2 (10:30→21:18)
[2021-12-05] MEDS: INSULIN GLARGINE (*BKC) 100 UNITS/ML 20 UNITS SUB-Q (10:30)
[2021-12-05] MEDS: FERROUS SULFATE 324 MG TABLET PO (10:30)
[2021-12-05] MEDS: amLODIPine BESYLATE 5 MG TABLET PO (10:30)
[2021-12-05] MEDS: TOLNAFTATE 1% POWDER 45 GM BTL 1 APPLIC TOPICAL ×2 (10:31→21:18)
[2021-12-05] MEDS: SILVERGEL (ELTA) 45 ML 1 APPLIC TOPICAL (10:31)
[2021-12-05 12:02] LABS: Glucose Point of Care 232 mg/dl (65-105)
[2021-12-05] MEDS: INSULIN ASPART (*BKC) 100 UNITS/ML SUB-Q (13:20)
--- NOTE | 2021-12-05 13:42 | PCOTNOTE ---
Attempted to see patient this pm. First attempt, patient sleeping upon entering and aroused to notify patient his lunch tray had arrived. Pt declined sitting up in chair, preferring to sit up in bed to eat. Returned after patient finished eating. Pt refused ADLs this pm stating I only want to wash my face.
--- NOTE | 2021-12-05 15:32 | PC.NURSE ---
Report given to SPARKLE Young with 3 med surg at 1532. Patient to move to room 331.
--- NOTE | 2021-12-05 16:25 | PC.NURSE ---
This patient, Cipriano Garcia, was received from [[facility]] on 12/05/21 at 1605. Patient/family oriented to unit policies and routines
[2021-12-05 16:49] LABS: Glucose Point of Care 168 mg/dl (65-105)
[2021-12-05] MEDS: WARFARIN (*PBKC) 4 MG TABLET 8 MG PO (17:02)
[2021-12-05] MEDS: cefTRIAXone 2 GM in SODIUM CHLORIDE 0.9% IV 100 ML 200 ML IVPB (17:03)
[2021-12-05] MEDS: HYDROcodone/acetaminophen (*CRX) 10-325 MG TABLET 1 TAB PO (18:39)
[2021-12-05 21:38] LABS: Glucose Point of Care 219 mg/dl (65-105)
[2021-12-06] VITALS (10 sets, daily range): BP systolic 136–155; BP diastolic 45–51; PULSE 60–83; RESP 16–18; TEMP 36.6–37.4; O2SAT 91–97
[2021-12-06] MEDS: HYDROcodone/acetaminophen (*CRX) 10-325 MG TABLET 1 TAB PO (05:19)
[2021-12-06] MEDS: CARBIDOPA/LEVODOPA 25/100 MG TABLET 1 TABLET PO ×3 (05:20→21:01)
[2021-12-06 06:00] LABS: Basophils Percent Auto 0.4 % (0.2-1.2); Eosinophils Absolute Auto 0.2 K/mm3 (0-0.3); Eosinophils Percent Auto 2.5 % (0-4.4); Hematocrit 33.8 % (42.0-52.0); Hemoglobin 10.1 g/dL (14.0-18.0); Immature Granulocyte Absolute 0.05 K/mm3 (0.00-0.031); Immature Granulocyte Percent A 0.6 % (0-0.5); Lymphocytes Absolute Auto 0.92 K/mm3 (0.9-3.2); Lymphocytes Percent Auto 10.8 % (18.3-44.2); Mean Corpuscular HGB Conc 29.9 g/dl (32-36); Mean Corpuscular Hemoglobin 28.6 pg (26-34); Mean Corpuscular Volume 95.8 fl (80-100); Mean Platelet Volume 11.3 fl (7.4-10.4); Monocytes Absolute Auto 0.9 K/mm3 (0.1-0.6); Neutrophils Absolute Auto 6.3 K/mm3 (1.3-6.7); Neutrophils Percent Auto 74.7 % (45.5-73.1); Platelet Count Result 174 k/mm3 (150-375); Red Blood Count 3.53 M/mm3 (4.6-6.20); Red Cell Distribution Width 15.5 % (11.5-14.5); White Blood Count 8.5 K/mm3 (4.5-10.0)
[2021-12-06 06:09] LABS: INR 1.8; Prothrombin Time 20.5 Seconds (11.1-14.7)
[2021-12-06 06:22] LABS: Anion Gap 5 mmol/L (8-16); Blood Urea Nitrogen 67 mg/dL (9-20); Calcium 8.5 mg/dL (8.4-10.2); Carbon Dioxide 28 mmol/L (22-30); Chloride 108 mmol/L (98-107); Estimated CRCL calculation 18 ml/min; Estimated Glomerular Filt Rate 24; Glucose 119 mg/dL (65-110); Sodium 141 mmol/L (137-145)
[2021-12-06 06:58] LABS: Anisocytosis 2+ (NORMAL); Atypical Lymphocytes Present; Hypochromasia 2+ (NORMAL); Ovalocytes 1+ (NORMAL); Platelet Estimate Adequate (Adequate); Poikilocytosis 2+ (NORMAL)
[2021-12-06 08:16] LABS: Glucose Point of Care 129 mg/dl (65-105)
[2021-12-06] MEDS: INSULIN GLARGINE (*BKC) 100 UNITS/ML 20 UNITS SUB-Q (08:18)
[2021-12-06] MEDS: TOLNAFTATE 1% POWDER 45 GM BTL 1 APPLIC TOPICAL ×2 (08:21→20:20)
[2021-12-06] MEDS: GABAPENTIN 300 MG CAPSULE PO ×2 (08:22→20:20)
[2021-12-06] MEDS: guaiFENesin 12 HR 600 MG TABCR PO ×2 (08:22→20:20)
[2021-12-06] MEDS: amLODIPine BESYLATE 5 MG TABLET PO (08:22)
[2021-12-06] MEDS: OMEGA 3 POLYUNSAT FATTY ACIDS 1 GM CAP PO (08:22)
[2021-12-06] MEDS: FERROUS SULFATE 324 MG TABLET PO (08:22)
[2021-12-06] MEDS: ASCORBIC ACID 500 MG TABLET 1000 MG PO (08:23)
[2021-12-06] MEDS: ISOSORBIDE MONONITRATE 30 MG TAB.ER.24H PO (08:24)
[2021-12-06] MEDS: FEBUXOSTAT 40 MG TABLET PO (08:24)
[2021-12-06] MEDS: BUMETANIDE 1 MG TABLET 2 MG PO (08:24)
[2021-12-06] MEDS: TOPIRAMATE 25 MG TABLET PO ×2 (08:24→17:11)
[2021-12-06] MEDS: SILVERGEL (ELTA) 45 ML 1 APPLIC TOPICAL (08:27)
--- NOTE | 2021-12-06 09:34 | PM.IMPN ---
Progress Note: A&P Assessment and Plan (1) Sepsis: Qualifiers: Sepsis acute organ dysfunction status: unspecified Sepsis type: sepsis due to unspecified organism Qualified Code(s): A41.9 - Sepsis, unspecified organism Code(s): A41.9 - Sepsis, unspecified organism Status: Acute Assessment and Plan: On admission, HR>90, WBC>14, lactic acid 2.8, +UA for infection and now with +blood cultures. -Resolved. Vitals stabilized. -Continue antibiotics. -Med/Surg status. (2) Bacteremia due to Gram-negative bacteria: Code(s): R78.81 - Bacteremia Status: Acute Assessment and Plan: Blood cultures 2 of 2 bottles positive for gram negative bacilli, preliminary growth +klebsiella. From UTI- urine culture +klebsiella. Sensitive to Rocephin. -Continue Rocephin 2 grams IV Q24 hours, which is sensitive. -Repeat blood cultures from 12/03 at 1800 shows one of two bottles with gram positive cocci and one bottle without growth. This is presumed to be contaminant as it is only in one bottle and a different bacteria from previous sets. Repeat blood cultures drawn 12/05. -Case discussed with ID clinical pharmacist who recommends 10 days Rocephin 2 grams Q24 hours treatment total (started 12/01/21). -Plan was to place PICC line for home IV abx tx, however due to CKD and possibly needing dialysis down the road, nephrology and vascular RN recommend against placing PICC line. Spoke again with ID pharmacist to discuss possibly oral options, however both options were Bactrim and Levaquin which are known to cause severe interactions with his Coumadin, as well as potentially nephrotoxic. He also has a prolonged QTc which makes Levaquin a poor option for that reason as well. Due to these factors, I discussed with patient and the plan is to keep him in the hospital to complete the full course of IV Rocephin inpatient. He was agreeable. Also discussed this with care coordination. (3) Acute UTI: Code(s): N39.0 - Urinary tract infection, site not specified Status: Acute Assessment and Plan: UA demonstrates 2+ blood, positive nitrates, trace leukocyte esterase, 79 wbc's, and trace bacteria. Bladder wall thickening noted on CT scan, suggestive of infection and blood cultures x2 with gram negative bacilli growth within 24 hours. -continue 2 grams Rocephin Q24 hours given bacteremia as above. -Urine cultures shows klebsiella growth sensitive to Rocephin. -microscopic hematuria noted. CT A/P with multiple simple renal cysts, noted previously, as well as hemorrhagic cyst. H/H stable and asymptomatic. Likely secondary to cyst rupture. Continue to monitor. Stable. (4) Generalized weakness: Code(s): R53.1 - Weakness Status: Acute Assessment and Plan: He had a nearly month long stay in the hospital between July and August and just recently returned home from an 8 week stay at rehab. Likely from an underlying infection. - PT/OT consulted. Patient appropriate for outpatient therapy. - fall precautions. (5) Chronic combined systolic and diastolic congestive heart failure: Code(s): I50.42 - Chronic combined systolic (congestive) and diastolic (congestive) heart failure Status: Chronic Assessment and Plan: Lower extremities are edematous on exam and chest x-ray shows interstitial edema. pro-BNP 4780. -continue p.o. bumetanide. -continue nitrates. He is not currently on a beta-dorian or erika-inhibitor. -monitor strict I/O and daily weights. -Stable. On home O2 requirements. (6) Elevated troponin: Code(s): R77.8 - Other specified abnormalities of plasma proteins Status: Acute Assessment and Plan: No complaints of chest pain and likely these are elevated from demand ischemia in the setting of congestive heart failure, chronic renal disease, and sepsis. - EKG showing a ventricular paced rhythm. - troponin I 0.068 to 0.096 to 0.19 to 0.5 t
[2021-12-06 11:44] LABS: Glucose Point of Care 327 mg/dl (65-105)
[2021-12-06] MEDS: INSULIN ASPART (*BKC) 100 UNITS/ML SUB-Q (12:01)
[2021-12-06 16:40] LABS: Glucose Point of Care 147 mg/dl (65-105)
[2021-12-06] MEDS: cefTRIAXone 2 GM in SODIUM CHLORIDE 0.9% IV 100 ML 200 ML IVPB (17:11)
[2021-12-06] MEDS: WARFARIN (*PBKC) 4 MG TABLET 8 MG PO (17:11)
[2021-12-06 20:46] LABS: Glucose Point of Care 188 mg/dl (65-105)
[2021-12-07] VITALS (8 sets, daily range): BP systolic 131–159; BP diastolic 52–67; PULSE 65–85; RESP 18–20; TEMP 36.6–36.9; O2SAT 96–100
[2021-12-07] MEDS: CARBIDOPA/LEVODOPA 25/100 MG TABLET 1 TABLET PO ×3 (05:34→22:37)
[2021-12-07 06:04] LABS: Prothrombin Time 21.9 Seconds (11.1-14.7)
[2021-12-07 06:09] LABS: Basophils Percent Auto 0.4 % (0.2-1.2); Eosinophils Absolute Auto 0.2 K/mm3 (0-0.3); Hematocrit 32.4 % (42.0-52.0); Hemoglobin 9.7 g/dL (14.0-18.0); Lymphocytes Absolute Auto 1.07 K/mm3 (0.9-3.2); Lymphocytes Percent Auto 10.7 % (18.3-44.2); Mean Corpuscular HGB Conc 29.9 g/dl (32-36); Mean Corpuscular Hemoglobin 28.6 pg (26-34); Mean Corpuscular Volume 95.6 fl (80-100); Mean Platelet Volume 11.2 fl (7.4-10.4); Monocytes Absolute Auto 1.1 K/mm3 (0.1-0.6); Monocytes Percent Auto 11.1 % (2.6-8.5); Neutrophils Absolute Auto 7.5 K/mm3 (1.3-6.7); Neutrophils Percent Auto 74.8 % (45.5-73.1); Platelet Count Result 186 k/mm3 (150-375); Red Blood Count 3.39 M/mm3 (4.6-6.20); Red Cell Distribution Width 15.4 % (11.5-14.5)
[2021-12-07 06:19] LABS: Anion Gap 4 mmol/L (8-16); Blood Urea Nitrogen 71 mg/dL (9-20); Calcium 8.2 mg/dL (8.4-10.2); Carbon Dioxide 27 mmol/L (22-30); Chloride 108 mmol/L (98-107); Estimated CRCL calculation 20 ml/min; Estimated Glomerular Filt Rate 26; Glucose 94 mg/dL (65-110); Sodium 139 mmol/L (137-145)
[2021-12-07 06:47] LABS: Anisocytosis 1+ (NORMAL); Hypochromasia 1+ (NORMAL); Platelet Estimate Adequate (Adequate)
[2021-12-07 07:49] LABS: Glucose Point of Care 103 mg/dl (65-105)
--- NOTE | 2021-12-07 08:19 | P.PNIM_ITS ---
Progress Note: A&P Assessment and Plan (1) Sepsis: Qualifiers: Sepsis acute organ dysfunction status: unspecified Sepsis type: sepsis due to unspecified organism Qualified Code(s): A41.9 - Sepsis, unspecified o rganism Code(s): A41.9 - Sepsis, unspecified organism Status: Acute Assessment and Plan: On admission, HR>90, WBC>14, lactic acid 2.8, +UA for infection and now with +blood cultures. -Resolved. Vitals stabilized. -Continue antibiotics. -Med/Surg status. (2) Bacteremia due to Gram-negative bacteria: Code(s): R78.81 - Bacteremia Status: Acute Assessment and Plan: Blood cultures 2 of 2 bottles positive for gram negative bacilli, preliminary growth +klebsiella. From UTI- urine culture +klebsiella. Sensitive to Rocephin. -Continue Rocephin 2 grams IV Q24 hours, which is sensitive. -Repeat blood cultures from 12/03 at 1800 shows one of two bottles with gram positive cocci and one bottle without growth. This is presumed to be contaminant as it is only in one bottle and a different bacteria from previous sets. Repeat blood cultures drawn 12/05. -Case discussed with ID clinical pharmacist who recommends 10 days Rocephin 2 grams Q24 hours treatment total (started 12/01/21). -Plan was to place PICC line for home IV abx tx, however due to CKD and possibly needing dialysis down the road, nephrology and vascular RN recommend against placing PICC line. Spoke again with ID pharmacist to discuss possibly oral options, however both options were Bactrim and Levaquin which are known to cause severe interactions with his Coumadin, as well as potentially nephrotoxic. He also has a prolonged QTc which makes Levaquin a poor option for that reason as well. Due to these factors, I discussed with patient and the plan is to keep him in the hospital to complete the full course of IV Rocephin inpatient. He was agreeable. Also discussed this with care coordination. He will complete treatment on 12/10/21 (3) Acute UTI: Code(s): N39.0 - Urinary tract infection, site not specified Status: Acute Assessment and Plan: UA demonstrates 2+ blood, positive nitrates, trace leukocyte esterase, 79 wbc's, and trace bacteria. Bladder wall thickening noted on CT scan, suggestive of infection and blood cultures x2 with gram negative bacilli growth within 24 hours. -continue 2 grams Rocephin Q24 hours given bacteremia as above. -Urine cultures shows klebsiella growth sensitive to Rocephin. -microscopic hematuria noted. CT A/P with multiple simple renal cysts, noted previously, as well as hemorrhagic cyst. H/H stable and asymptomatic. Likely secondary to cyst rupture. Continue to monitor. Stable. (4) Generalized weakness: Code(s): R53.1 - Weakness Status: Acute Assessment and Plan: He had a nearly month long stay in the hospital between July and August and just recently returned home from an 8 week stay at rehab. Likely from an underlying infection. - PT/OT consulted. Patient appropriate for outpatient therapy. - fall precautions. (5) Chronic combined systolic and diastolic congestive heart failure: Code(s): I50.42 - Chronic combined systolic (congestive) and diastolic (congestive) heart failure Status: Chronic Assessment and Plan: Lower extremities are edematous on exam and chest x-ray shows interstitial edema. pro-BNP 4780. -continue p.o. bumetanide. -continue nitrates. He is not currently on a beta-dorian or erika-inhibitor. -monitor strict I/O and daily weights. -Stable. On home O2 requirements. (6)
[2021-12-07] MEDS: INSULIN GLARGINE (*BKC) 100 UNITS/ML 20 UNITS SUB-Q (08:27)
[2021-12-07] MEDS: OMEGA 3 POLYUNSAT FATTY ACIDS 1 GM CAP PO (08:28)
[2021-12-07] MEDS: ASCORBIC ACID 500 MG TABLET 1000 MG PO (08:28)
[2021-12-07] MEDS: BUMETANIDE 1 MG TABLET 2 MG PO (08:28)
[2021-12-07] MEDS: TOPIRAMATE 25 MG TABLET PO ×2 (08:28→17:27)
[2021-12-07] MEDS: guaiFENesin 12 HR 600 MG TABCR PO ×2 (08:28→21:28)
[2021-12-07] MEDS: GABAPENTIN 300 MG CAPSULE PO ×2 (08:28→21:28)
[2021-12-07] MEDS: FEBUXOSTAT 40 MG TABLET PO (08:28)
[2021-12-07] MEDS: ISOSORBIDE MONONITRATE 30 MG TAB.ER.24H PO (08:28)
[2021-12-07] MEDS: FERROUS SULFATE 324 MG TABLET PO (08:28)
[2021-12-07] MEDS: amLODIPine BESYLATE 5 MG TABLET PO (08:28)
[2021-12-07] MEDS: TOLNAFTATE 1% POWDER 45 GM BTL 1 APPLIC TOPICAL ×2 (08:29→21:28)
[2021-12-07] MEDS: SILVERGEL (ELTA) 45 ML 1 APPLIC TOPICAL (08:29)
[2021-12-07] MEDS: CALCIUM CARBONATE (TUMS) 500 MG (200 MG ELEMENTAL) PO (08:30)
[2021-12-07] MEDS: UMECLIDINIUM BROMIDE 62.5 MCG ELLIPTA 2 PUFF INHALATION (08:44)
[2021-12-07 11:53] LABS: Glucose Point of Care 167 mg/dl (65-105)
--- NOTE | 2021-12-07 14:23 | PCNFU ---
Nutrition Follow-Up Complete: Increased protein needs R/T wounds AEB Stage III left medial heel, left lateral heel, left sacrum pressure ulcer and right heel deep tissue pressure ulcer Goal:Pt to meet >50% of estimated nutritional needs Pt is progressing towards goal. Continue with current goal. Pt current nutrition is Heart healthy diet and dietary supplements. Nutrition recommendation: Continue encouraging intake of diet orders and dietary supplements. Last recorded weight is 78.2 kg, stable. Bowel Motility: +ostomy output reported 12/07 - liquid Labs Reviewed: Hgb 9.7, Hct 32.4, Ca 8.2, GFR 26, BUN 71, Cr 2.40 Meds Noted: Norvasc, Vitamin C, Bumex, Tums, Sinemet, Uloric, Ferrous Sulfate, Fish oil, Gabapentin, Mucinex, Lantus, Imdur, Topamax, Umeclidinium Skin: Left Medial Heel Pressure Ulcer - Stage III, Left Lateral Heel Pressure Ulcer - Stage III, Right Heel Pressure Ulcer - Deep Tissue, Left Sacrum Pressure Ulcer - Stage III Additional Notes: Current nutrition is a Heart Healthy Diet and dietary supplements of Glucerna BID providing an additional 220kcal and 10g of protein per shake and Haim BID providing an additional 90kcal and 2.5g of protein per packet. Reported intake is 100% x5 with report of pt. drinking dietary supplements. Intake and appetite appear to be improving. Agree with current diet orders. Will continue to follow. Will monitor labs, medication, wt, and reported intake every 7 days
[2021-12-07 16:53] LABS: Glucose Point of Care 169 mg/dl (65-105)
[2021-12-07] MEDS: WARFARIN (*PBKC) 4 MG TABLET 8 MG PO (17:27)
[2021-12-07] MEDS: cefTRIAXone 2 GM in SODIUM CHLORIDE 0.9% IV 100 ML IVPB (17:28)
[2021-12-07] MEDS: HYDROcodone/acetaminophen (*CRX) 10-325 MG TABLET 1 TAB PO (21:28)
[2021-12-07] MEDS: MELATONIN 5 MG TABLET PO (22:37)
[2021-12-07 22:44] LABS: Glucose Point of Care 190 mg/dl (65-105)
[2021-12-08] VITALS (8 sets, daily range): BP systolic 127–153; BP diastolic 58–63; PULSE 64–86; RESP 16–18; TEMP 36.2–37.3; O2SAT 95–100
[2021-12-08] MEDS: CARBIDOPA/LEVODOPA 25/100 MG TABLET 1 TABLET PO ×3 (06:04→21:08)
[2021-12-08 06:05] LABS: Basophils Absolute Auto 0.1 K/mm3 (0.0-0.1); Basophils Percent Auto 0.5 % (0.2-1.2); Eosinophils Absolute Auto 0.2 K/mm3 (0-0.3); Eosinophils Percent Auto 2.4 % (0-4.4); Hematocrit 32.2 % (42.0-52.0); Hemoglobin 9.4 g/dL (14.0-18.0); Immature Granulocyte Absolute 0.09 K/mm3 (0.00-0.031); Lymphocytes Absolute Auto 1.02 K/mm3 (0.9-3.2); Lymphocytes Percent Auto 10.8 % (18.3-44.2); Mean Corpuscular HGB Conc 29.2 g/dl (32-36); Mean Corpuscular Hemoglobin 28.2 pg (26-34); Mean Corpuscular Volume 96.7 fl (80-100); Mean Platelet Volume 11.7 fl (7.4-10.4); Monocytes Percent Auto 10.8 % (2.6-8.5); Neutrophils Percent Auto 74.5 % (45.5-73.1); Platelet Count Result 213 k/mm3 (150-375); Red Blood Count 3.33 M/mm3 (4.6-6.20); Red Cell Distribution Width 15.1 % (11.5-14.5); White Blood Count 9.4 K/mm3 (4.5-10.0)
[2021-12-08 06:13] LABS: Albumin Level 2.9 g/dL (3.5-5.1); Alkaline Phosphatase 133 U/L (38-126); Anion Gap 4 mmol/L (8-16); Aspartate Amino Transferase 15 U/L (17-59); Bilirubin,Total 0.2 mg/dL (0.2-1.3); Blood Urea Nitrogen 78 mg/dL (9-20); Calcium 8.4 mg/dL (8.4-10.2); Carbon Dioxide 28 mmol/L (22-30); Chloride 108 mmol/L (98-107); Estimated CRCL calculation 17 ml/min; Estimated Glomerular Filt Rate 23; Glucose 80 mg/dL (65-110); Potassium 4.6 mmol/L (3.4-5.0); Sodium 140 mmol/L (137-145)
[2021-12-08 06:14] LABS: Alanine Aminotransferase < 4 U/L (6-50)
[2021-12-08 06:17] LABS: INR 2.2; Prothrombin Time 23.5 Seconds (11.1-14.7)
[2021-12-08 07:34] LABS: Glucose Point of Care 86 mg/dl (65-105)
[2021-12-08] MEDS: UMECLIDINIUM BROMIDE 62.5 MCG ELLIPTA 2 PUFF INHALATION (07:56)
[2021-12-08] MEDS: FERROUS SULFATE 324 MG TABLET PO (08:10)
[2021-12-08] MEDS: FEBUXOSTAT 40 MG TABLET PO (08:10)
[2021-12-08] MEDS: GABAPENTIN 300 MG CAPSULE PO ×2 (08:10→21:08)
[2021-12-08] MEDS: OMEGA 3 POLYUNSAT FATTY ACIDS 1 GM CAP PO (08:10)
[2021-12-08] MEDS: ISOSORBIDE MONONITRATE 30 MG TAB.ER.24H PO (08:10)
[2021-12-08] MEDS: TOPIRAMATE 25 MG TABLET PO ×2 (08:10→16:55)
[2021-12-08] MEDS: guaiFENesin 12 HR 600 MG TABCR PO ×2 (08:11→21:08)
[2021-12-08] MEDS: ASCORBIC ACID 500 MG TABLET 1000 MG PO (08:11)
[2021-12-08] MEDS: SILVERGEL (ELTA) 45 ML 1 APPLIC TOPICAL (08:11)
[2021-12-08] MEDS: BUMETANIDE 1 MG TABLET 2 MG PO (08:11)
[2021-12-08] MEDS: TOLNAFTATE 1% POWDER 45 GM BTL 1 APPLIC TOPICAL ×2 (08:11→21:08)
[2021-12-08] MEDS: amLODIPine BESYLATE 5 MG TABLET PO (08:11)
[2021-12-08] MEDS: CALCIUM CARBONATE (TUMS) 500 MG (200 MG ELEMENTAL) PO (08:12)
[2021-12-08] MEDS: INSULIN GLARGINE (*BKC) 100 UNITS/ML 20 UNITS SUB-Q (08:13)
[2021-12-08 11:47] LABS: Glucose Point of Care 250 mg/dl (65-105)
[2021-12-08] MEDS: INSULIN ASPART (*BKC) 100 UNITS/ML SUB-Q (11:51)
[2021-12-08 16:51] LABS: Glucose Point of Care 148 mg/dl (65-105)
[2021-12-08] MEDS: WARFARIN (*PBKC) 4 MG TABLET 8 MG PO (16:55)
[2021-12-08] MEDS: cefTRIAXone 2 GM in SODIUM CHLORIDE 0.9% IV 100 ML IVPB (16:59)
[2021-12-08] MEDS: HYDROcodone/acetaminophen (*CRX) 10-325 MG TABLET 1 TAB PO (19:46)
[2021-12-08 19:59] LABS: Glucose Point of Care 313 mg/dl (65-105)
[2021-12-09] VITALS (7 sets, daily range): BP systolic 119–147; BP diastolic 45–61; PULSE 62–72; RESP 14–22; TEMP 36.2–37.1; O2SAT 94–99
[2021-12-09] MEDS: CARBIDOPA/LEVODOPA 25/100 MG TABLET 1 TABLET PO ×3 (05:53→21:00)
[2021-12-09 06:18] LABS: INR 2.4; Prothrombin Time 25.2 Seconds (11.1-14.7)
[2021-12-09 06:29] LABS: Anion Gap 5 mmol/L (8-16); Blood Urea Nitrogen 68 mg/dL (9-20); Calcium 8.4 mg/dL (8.4-10.2); Carbon Dioxide 28 mmol/L (22-30); Chloride 108 mmol/L (98-107); Estimated CRCL calculation 20 ml/min; Estimated Glomerular Filt Rate 26; Glucose 142 mg/dL (65-110); Potassium 4.3 mmol/L (3.4-5.0); Sodium 141 mmol/L (137-145)
[2021-12-09] MEDS: amLODIPine BESYLATE 5 MG TABLET PO (08:10)
[2021-12-09] MEDS: TOPIRAMATE 25 MG TABLET PO ×2 (08:10→17:09)
[2021-12-09] MEDS: BUMETANIDE 1 MG TABLET 2 MG PO (08:10)
[2021-12-09] MEDS: OMEGA 3 POLYUNSAT FATTY ACIDS 1 GM CAP PO (08:10)
[2021-12-09] MEDS: TOLNAFTATE 1% POWDER 45 GM BTL 1 APPLIC TOPICAL ×2 (08:10→20:53)
[2021-12-09] MEDS: FEBUXOSTAT 40 MG TABLET PO (08:10)
[2021-12-09] MEDS: GABAPENTIN 300 MG CAPSULE PO ×2 (08:10→20:52)
[2021-12-09] MEDS: FERROUS SULFATE 324 MG TABLET PO (08:10)
[2021-12-09] MEDS: ISOSORBIDE MONONITRATE 30 MG TAB.ER.24H PO (08:10)
[2021-12-09] MEDS: guaiFENesin 12 HR 600 MG TABCR PO ×2 (08:10→20:52)
[2021-12-09] MEDS: ASCORBIC ACID 500 MG TABLET 1000 MG PO (08:10)
[2021-12-09] MEDS: INSULIN GLARGINE (*BKC) 100 UNITS/ML 20 UNITS SUB-Q (08:11)
[2021-12-09] MEDS: SILVERGEL (ELTA) 45 ML 1 APPLIC TOPICAL (08:11)
[2021-12-09] MEDS: CALCIUM CARBONATE (TUMS) 500 MG (200 MG ELEMENTAL) PO (08:12)
[2021-12-09] MEDS: UMECLIDINIUM BROMIDE 62.5 MCG ELLIPTA 2 PUFF INHALATION (08:21)
[2021-12-09 08:42] LABS: Glucose Point of Care 138 mg/dl (65-105)
[2021-12-09] MEDS: INSULIN ASPART (*BKC) 100 UNITS/ML SUB-Q ×2 (12:15→17:09)
[2021-12-09 12:17] LABS: Glucose Point of Care 323 mg/dl (65-105)
[2021-12-09] MEDS: WARFARIN (*PBKC) 4 MG TABLET 8 MG PO (17:08)
[2021-12-09] MEDS: cefTRIAXone 2 GM in SODIUM CHLORIDE 0.9% IV 100 ML IVPB (17:09)
[2021-12-09 17:16] LABS: Glucose Point of Care 211 mg/dl (65-105)
[2021-12-09] MEDS: HYDROcodone/acetaminophen (*CRX) 10-325 MG TABLET 1 TAB PO (20:52)
[2021-12-09 21:07] LABS: Glucose Point of Care 161 mg/dl (65-105)
[2021-12-10] MEDS: CARBIDOPA/LEVODOPA 25/100 MG TABLET 1 TABLET PO ×3 (05:05→20:28)
[2021-12-10 06:00] VITALS: BP 150/52; PULSE 62; RESP 16; TEMP 36.4; O2SAT 100
[2021-12-10 06:15] LABS: INR 2.6; Prothrombin Time 27.1 Seconds (11.1-14.7)
[2021-12-10 07:44] LABS: Glucose Point of Care 105 mg/dl (65-105)
[2021-12-10] MEDS: UMECLIDINIUM BROMIDE 62.5 MCG ELLIPTA 2 PUFF INHALATION (08:07)
[2021-12-10 08:08] VITALS: O2SAT 94
[2021-12-10] MEDS: INSULIN GLARGINE (*BKC) 100 UNITS/ML 20 UNITS SUB-Q (08:21)
[2021-12-10] MEDS: FEBUXOSTAT 40 MG TABLET PO (08:22)
[2021-12-10] MEDS: GABAPENTIN 300 MG CAPSULE PO ×2 (08:22→20:27)
[2021-12-10] MEDS: ISOSORBIDE MONONITRATE 30 MG TAB.ER.24H PO (08:22)
[2021-12-10] MEDS: CALCIUM CARBONATE (TUMS) 500 MG (200 MG ELEMENTAL) PO (08:22)
[2021-12-10] MEDS: guaiFENesin 12 HR 600 MG TABCR PO ×2 (08:22→20:27)
[2021-12-10] MEDS: BUMETANIDE 1 MG TABLET 2 MG PO (08:22)
[2021-12-10] MEDS: TOLNAFTATE 1% POWDER 45 GM BTL 1 APPLIC TOPICAL ×2 (08:22→20:28)
[2021-12-10] MEDS: ASCORBIC ACID 500 MG TABLET 1000 MG PO (08:23)
[2021-12-10] MEDS: SILVERGEL (ELTA) 45 ML 1 APPLIC TOPICAL (08:23)
[2021-12-10] MEDS: FERROUS SULFATE 324 MG TABLET PO (08:23)
[2021-12-10] MEDS: TOPIRAMATE 25 MG TABLET PO ×2 (08:23→16:08)
[2021-12-10] MEDS: amLODIPine BESYLATE 5 MG TABLET PO (08:23)
[2021-12-10] MEDS: OMEGA 3 POLYUNSAT FATTY ACIDS 1 GM CAP PO (08:23)
[2021-12-10 09:00] VITALS: O2SAT 96
[2021-12-10] MEDS: INSULIN ASPART (*BKC) 100 UNITS/ML SUB-Q (12:13)
[2021-12-10 12:14] LABS: Glucose Point of Care 254 mg/dl (65-105)
[2021-12-10 14:00] VITALS: BP 155/56; PULSE 72; RESP 18; TEMP 36.6; O2SAT 98
--- NOTE | 2021-12-10 14:06 | PCOTNOTE ---
Patient sleeping upon entry, reported no need to toilet and already bathed earlier. Patient requested [facility] follow up tomorrow for OT session.
[2021-12-10] MEDS: WARFARIN (*PBKC) 4 MG TABLET 8 MG PO (16:08)
[2021-12-10] MEDS: cefTRIAXone 2 GM in SODIUM CHLORIDE 0.9% IV 100 ML 200 ML IVPB (16:08)
[2021-12-10 16:27] LABS: Glucose Point of Care 187 mg/dl (65-105)
[2021-12-10] MEDS: HYDROcodone/acetaminophen (*CRX) 10-325 MG TABLET 1 TAB PO ×2 (17:00→21:12)
[2021-12-10 22:00] VITALS: BP 160/52; PULSE 70; RESP 16; TEMP 36.4; O2SAT 96
[2021-12-11] MEDS: CARBIDOPA/LEVODOPA 25/100 MG TABLET 1 TABLET PO ×2 (05:44→14:28)
[2021-12-11 05:56] VITALS: BP 150/39; PULSE 66; RESP 16; TEMP 36.4; O2SAT 100
[2021-12-11 06:01] LABS: INR 2.9; Prothrombin Time 29.5 Seconds (11.1-14.7)
[2021-12-11 07:40] VITALS: O2SAT 95
[2021-12-11] MEDS: UMECLIDINIUM BROMIDE 62.5 MCG ELLIPTA 2 PUFF INHALATION (07:40)
[2021-12-11 08:06] LABS: Glucose Point of Care 148 mg/dl (65-105)
[2021-12-11] MEDS: amLODIPine BESYLATE 5 MG TABLET PO (08:23)
[2021-12-11] MEDS: GABAPENTIN 300 MG CAPSULE PO (08:23)
[2021-12-11] MEDS: BUMETANIDE 1 MG TABLET 2 MG PO (08:23)
[2021-12-11] MEDS: ISOSORBIDE MONONITRATE 30 MG TAB.ER.24H PO (08:23)
[2021-12-11] MEDS: FERROUS SULFATE 324 MG TABLET PO (08:23)
[2021-12-11] MEDS: OMEGA 3 POLYUNSAT FATTY ACIDS 1 GM CAP PO (08:23)
[2021-12-11] MEDS: FEBUXOSTAT 40 MG TABLET PO (08:23)
[2021-12-11] MEDS: ASCORBIC ACID 500 MG TABLET 1000 MG PO (08:23)
[2021-12-11 08:24] VITALS: O2SAT 95
[2021-12-11] MEDS: INSULIN GLARGINE (*BKC) 100 UNITS/ML 20 UNITS SUB-Q (08:24)
[2021-12-11] MEDS: TOLNAFTATE 1% POWDER 45 GM BTL 1 APPLIC TOPICAL (08:24)
[2021-12-11] MEDS: SILVERGEL (ELTA) 45 ML 1 APPLIC TOPICAL (08:24)
[2021-12-11] MEDS: TOPIRAMATE 25 MG TABLET PO (08:24)
[2021-12-11] MEDS: guaiFENesin 12 HR 600 MG TABCR PO (08:24)
[2021-12-11] MEDS: HYDROcodone/acetaminophen (*CRX) 10-325 MG TABLET 1 TAB PO (09:56)
--- NOTE | 2021-12-11 11:17 | PM.DS ---
DS: Admitting Diagnosis Discharge Date December 11, 2021 Admitting Diagnosis Sepsis present on admission, Gram-negative bacteremia, UTI DS: Discharge Diagnosis Discharge Diagnosis (1) Sepsis: Qualifiers: Sepsis acute organ dysfunction status: unspecified Sepsis type: sepsis due to unspecified organism Qualified Code(s): A41.9 - Sepsis, unspecified organism Code(s): A41.9 - Sepsis, unspecified organism Status: Acute Assessment and Plan: On admission, HR>90, WBC>14, lactic acid 2.8, +UA for infection and now with +blood cultures. -Resolved. Vitals stabilized. -Continue antibiotics. Patient completed course of IV Rocephin in the hospital. (2) Bacteremia due to Gram-negative bacteria: Code(s): R78.81 - Bacteremia Status: Acute Assessment and Plan: Completed antibiotics. (3) Acute UTI: Code(s): N39.0 - Urinary tract infection, site not specified Status: Acute Assessment and Plan: Status post completed treatment with IV Rocephin. (4) Generalized weakness: Code(s): R53.1 - Weakness Status: Acute Assessment and Plan: Outpatient therapy. (5) Chronic combined systolic and diastolic congestive heart failure: Code(s): I50.42 - Chronic combined systolic (congestive) and diastolic (congestive) heart failure Status: Chronic Assessment and Plan: Resume home medications. Appears compensated. (6) Elevated troponin: Code(s): R77.8 - Other specified abnormalities of plasma proteins Status: Acute Assessment and Plan: - Likely secondary to demand ischemia. Troponin trending down and no chest pain at this time. No further workup indicated. (7) Peripheral vascular disease of lower extremity: Code(s): I73.9 - Peripheral vascular disease, unspecified Status: Acute Assessment and Plan: -No s/s ischemic limb. (8) Subtherapeutic anticoagulation: Code(s): Z51.81 - Encounter for therapeutic drug level monitoring; Z79.01 - terminal operator (current) use of anticoagulants Status: Acute Assessment and Plan: Resume Coumadin. Close monitoring as an outpatient. (9) Chronic kidney disease, stage 4 (severe): Code(s): N18.4 - Chronic kidney disease, stage 4 (severe) Status: Chronic Assessment and Plan: Monitor as an outpatient (10) Type 2 diabetes mellitus: Code(s): E11.9 - Type 2 diabetes mellitus without complications Status: Chronic Assessment and Plan: Attending home meds (11) Anemia: Qualifiers: Anemia type: unspecified type Qualified Code(s): D64.9 - Anemia, unspecified Code(s): D64.9 - Anemia, unspecified Status: Chronic Assessment and Plan: Monitor as an outpatient. H&H stable in the hospital (12) Hypertension, essential: Code(s): I10 - Essential (primary) hypertension Status: Chronic Assessment and Plan: Continue home meds (13) Chronic atrial fibrillation, unspecified: Code(s): I48.20 - Chronic atrial fibrillation, unspecified Status: Acute Assessment and Plan: -To be aware. Currently Vpaced. Not on rate controlling medications. Warfarin dose as above. (14) Decubitus ulcer: Qualifiers: Pressure injury location: buttock Pressure injury stage: stage 3 Laterality: unspecified laterality Qualified Code(s): L89.303 - Pressure ulcer of unspecified buttock, stage 3 Code(s): L89.90 - Pressure ulcer of unspecified site, unspecified stage Status: Acute Assessment and Plan: Monitor (15) Wound of left lower extremity: Qualifiers: Encounter type: subsequent encounter Qualified Code(s): S81.802D - Unspecified open wound, left lower leg, subsequent encounter Code(s): S81.802A - Unspecified open wound, left lower leg, initial encounter
[2021-12-11 12:00] LABS: Glucose Point of Care 201 mg/dl (65-105)
[2021-12-11] MEDS: INSULIN ASPART (*BKC) 100 UNITS/ML SUB-Q (12:32)
[2021-12-11] MEDS: CALCIUM CARBONATE (TUMS) 500 MG (200 MG ELEMENTAL) PO (12:32)
[2021-12-11 13:50] VITALS: BP 128/52; PULSE 76; RESP 16; TEMP 36.2; O2SAT 98
== END 2021-12-11 16:00 | disposition home health service (06) | DRG 871 ==
LOC: ANHED 18:47 → ANHIMU 19:38 → ANH3MEDSUR 12-05 16:01
PROVIDERS: Nurse Practitioner Family; Physician Assistant; Admitting Provider Internal Medicine; Emergency Provider Emergency Medicine; PCP Internal Medicine; Visit Provider Chiropractor
DX: A41.9 Sepsis, unspecified organism (principal); L89.153 Pressure ulcer of sacral region, stage 3; L89.623 Pressure ulcer of left heel, stage 3; N39.0 Urinary tract infection, site not specified; I13.0 Hypertensive heart and chronic kidney disease with heart failure and stage 1 through stage 4 chronic kidney disease, or unspecified chronic kidney disease; I50.42 Chronic combined systolic (congestive) and diastolic (congestive) heart failure; N18.4 Chronic kidney disease, stage 4 (severe); I24.8 Other forms of acute ischemic heart disease; J96.11 Chronic respiratory failure with hypoxia; I48.19 Other persistent atrial fibrillation; E11.22 Type 2 diabetes mellitus with diabetic chronic kidney disease; B96.1 Klebsiella pneumoniae [K. pneumoniae] as the cause of diseases classified elsewhere; Z20.822 Contact with and (suspected) exposure to COVID-19; I73.9 Peripheral vascular disease, unspecified; R31.29 Other microscopic hematuria; R79.1 Abnormal coagulation profile; D63.1 Anemia in chronic kidney disease; M19.90 Unspecified osteoarthritis, unspecified site; E11.42 Type 2 diabetes mellitus with diabetic polyneuropathy; M35.3 Polymyalgia rheumatica; I25.10 Atherosclerotic heart disease of native coronary artery without angina pectoris; Z79.01 Long term (current) use of anticoagulants; Z93.3 Colostomy status; Z99.81 Dependence on supplemental oxygen; Z95.2 Presence of prosthetic heart valve; Z98.42 Cataract extraction status, left eye; Z98.41 Cataract extraction status, right eye; Z95.5 Presence of coronary angioplasty implant and graft; Z87.891 Personal history of nicotine dependence; L89.619 Pressure ulcer of right heel, unspecified stage
CPT/HCPCS: 36415; 71045; 71046; 73700; 74176; 80048; 80053; 81001; 82365; 82948; 83036; 83605; 83735; 83880; 84439; 84443; 84480; 84484; 84550; 85025; 85027; 85610; 85730; 86140; 87040; 87077; 87086; 87088; 87186; 87502; 88300; 93005; 93970; 94640; 96361; 96365; 96375; 97110; 97116; 97161; 97165; 97535; 99285; A9270; C9803; G0378; J0696; J1815; J7120; U0003; U0005

== ENCOUNTER 2022-02-01 13:14 | Outpatient (CLI) | payer MEDICARE, OTHER, SELFPAY ==
[2022-02-01 14:16] LABS: Appearance Urine Slightly Cloudy (Clear); Bilirubin Urine Negative (Negative); Blood Urine 1+ (Negative); Color Urine Yellow (Yellow); Glucose Urine UA Negative (Negative); Ketones Urine Negative (Negative); Leukocyte Esterase Ur 2+ LEU/UL (Negative); Nitrate Urine Negative (Negative); Protein Urine 1+ mg/dL (Negative); Specific Grav Ur 1.015 (1.001-1.035); Urobilinogen Urine 0.2 mg/dL (<2.0)
[2022-02-01 14:30] LABS: Add Urine Microscopic? YES; Anion Gap 12 mmol/L (8-16); Bacteria Urine 3+ /hpf; Blood Urea Nitrogen 57 mg/dL (9-20); Carbon Dioxide 23 mmol/L (22-30); Chloride 108 mmol/L (98-107); Estimated Glomerular Filt Rate 29; Glucose 145 mg/dL (65-110); Mucus Urine Rare /lpf; Potassium 4.4 mmol/L (3.4-5.0); Sodium 143 mmol/L (137-145); Squamous Epithelial Cell Urine Rare /hpf (Few); WBC Clumps Urine Present /HPF; WBC Urine >75 /hpf
== END 2022-02-01 13:15 | disposition home or self-care (01) ==
PROVIDERS: PCP Internal Medicine; Visit Provider Internal Medicine
DX: N18.4 Chronic kidney disease, stage 4 (severe) (principal); R35.0 Frequency of micturition
CPT/HCPCS: 36415; 80048; 81001; 87077; 87086; 87186

== ENCOUNTER 2022-02-21 08:49 | Outpatient (CLI) | payer MEDICARE, OTHER, SELFPAY ==
[2022-02-21 09:49] LABS: Albumin Level 3.8 g/dL (3.5-5.1); Alkaline Phosphatase 110 U/L (38-126); Anion Gap 6 mmol/L (8-16); Aspartate Amino Transferase 16 U/L (17-59); Bilirubin,Total 0.5 mg/dL (0.2-1.3); Blood Urea Nitrogen 50 mg/dL (9-20); Calcium 8.7 mg/dL (8.4-10.2); Carbon Dioxide 25 mmol/L (22-30); Chloride 108 mmol/L (98-107); Cholesterol 167 mg/dL (0-200); Estimated Glomerular Filt Rate 27; Glucose 167 mg/dL (65-110); HDL Direct 36 mg/dL; Potassium 4.4 mmol/L (3.4-5.0); Sodium 139 mmol/L (137-145); Triglycerides 156 mg/dL (<150); Uric Acid 6.2 mg/dL (3.5-8.5)
[2022-02-21 10:00] LABS: LDL Cholesterol Direct 80 mg/dL
[2022-02-21 10:05] LABS: Alanine Aminotransferase < 4 U/L (6-50)
[2022-02-21 10:17] LABS: Hemoglobin A1C 6.8 % (<5.7)
[2022-02-21 10:39] LABS: Iron 57 ug/dL (49-181); Percent Iron Saturation 19 % (20-50); Vitamin D 25 Hydroxy 37.6 ng/mL
== END 2022-02-21 08:50 | disposition home or self-care (01) ==
PROVIDERS: PCP Internal Medicine; Visit Provider Nurse Practitioner
DX: E11.9 Type 2 diabetes mellitus without complications (principal); E55.9 Vitamin D deficiency, unspecified; E78.5 Hyperlipidemia, unspecified; M10.9 Gout, unspecified; D63.1 Anemia in chronic kidney disease; N18.9 Chronic kidney disease, unspecified
CPT/HCPCS: 36415; 80053; 80061; 82306; 83036; 83540; 83550; 84550

== ENCOUNTER 2022-02-26 15:47 | Outpatient (CLI) | payer MEDICARE, OTHER, SELFPAY ==
--- NOTE | ~2022-02-26 | XR_ITS ---
EXAMINATION: XR lumbar spine 2-3V DATE: 02/26/2022 16:20 INDICATION: Lumbar radiculopathy TECHNIQUE: Anteroposterior and lateral views of the lumbar spine, and cone-down lateral view of the l umbosacral junction were obtained. COMPARISON: 04/19/2019 FINDINGS: Bone alignment is normal. There is no fracture. The vertebral body heights are maintained. There is mild loss of intervertebral disc space height at L1-2. Small degenerative osteophytes projec t from the anterior endplates of multiple vertebral bodies. There is moderate facet osteoarthritis of the lower lumbar spine. A fusiform aneurysm of the infrarenal abdominal aorta is noted. Vascular bereket nts are noted in the right pelvis and bilateral proximal femurs. IMPRESSION: 1. Moderate lumbar spondylosis without acute findings or significant interval change. 2. Fusiform infrarenal abdominal aortic aneurysm. Reviewed, dictated and finalized at location B. IMPRESSION: 1. Moderate lumbar spondylosis without acute findings or significant interval c aviva. 2. Fusiform infrarenal abdominal aortic aneurysm.
== END 2022-02-26 15:48 | disposition home or self-care (01) ==
LOC: ANHIMG 15:49
PROVIDERS: PCP Internal Medicine; Visit Provider Nurse Practitioner
DX: M47.816 Spondylosis without myelopathy or radiculopathy, lumbar region (principal); I71.4 Abdominal aortic aneurysm, without rupture
CPT/HCPCS: 72100

== ENCOUNTER 2022-03-13 07:58 | Outpatient (CLI) | payer MEDICARE, OTHER, SELFPAY ==
--- NOTE | ~2022-03-13 | CT_ITS ---
EXAMINATION: CT lumbar spine wo con DATE: 03/13/2022 08:19 INDICATION: Low back pain with radiculopathy. TECHNIQUE: Computed tomography (CT) of the lumbar spine was performed without intravenous contrast. A utomated exposure control and iterative reconstruction technique were employed. The dose-length produ ct was 491.66 mGy-cm. COMPARISON: Lumbar spine radiographs 02/26/2022, CT abdomen and pelvis 12/01/2021 FINDINGS: There are airspace opacities in left lung lower lobe, consistent with atelectasis versus pn eumonia. There is a trace left pleural effusion. Partially visualized is an abdominal aortic aneurysm better seen on prior imaging. There is 7 degrees levocurvature of thoracolumbar spine. There is mild chronic anterior wedging of T12 and L1 vertebral bodies, likely physiologic. There is mildly decreas ed disc height at L1-L2. The following disc levels are specifically discussed: L1-L2: The disc is bulging. There is mild bilateral facet joint osteoarthritis. There is mild bilater al neural foraminal stenosis. There is mild central canal stenosis. L2-L3: The disc is bulging. There is mild bilateral facet joint osteoarthritis. There is mild bilater al neural foraminal stenosis. There is mild central canal stenosis. L3-L4: The disc is bulging. There is mild bilateral facet joint osteoarthritis. There is mild bilater al neural foraminal stenosis. There is mild central canal stenosis. L4-L5: The disc is bulging. There is moderate bilateral facet joint osteoarthritis. There is moderate bilateral neural foraminal stenosis. There is mild central canal stenosis. L5-S1: The disc is bulging. There is moderate bilateral facet joint osteoarthritis. There is moderate bilateral neural foraminal stenosis. There is mild central canal stenosis. IMPRESSION: 1. Moderate lumbar spondylosis. 2. Airspace opacities in left lung lower lobe, consistent with atelectasis versus pneumonia. Reviewed, dictated and finalized at location A. IMPRESSION: 1. Moderate lumbar spondylosis. 2. Airspace opacities in left lung lower lobe, consistent with atelectasis vers us pneumonia.
== END 2022-03-13 07:59 | disposition home or self-care (01) ==
PROVIDERS: PCP Internal Medicine; Visit Provider Nurse Practitioner
DX: M47.27 Other spondylosis with radiculopathy, lumbosacral region (principal); M48.07 Spinal stenosis, lumbosacral region
CPT/HCPCS: 72131

== ENCOUNTER 2022-03-27 11:39 | Outpatient (CLI) | payer MEDICARE, OTHER, SELFPAY ==
[2022-03-27 12:05] LABS: Appearance Urine Cloudy (Clear); Bilirubin Urine Negative (Negative); Blood Urine 2+ (Negative); Color Urine Yellow (Yellow); Glucose Urine UA Trace mg/dL (Negative); Ketones Urine Negative (Negative); Leukocyte Esterase Ur 1+ LEU/UL (Negative); Nitrate Urine Negative (Negative); Protein Urine 3+ mg/dL (Negative); Specific Grav Ur >= 1.030 (1.001-1.035); Urobilinogen Urine 0.2 mg/dL (<2.0)
[2022-03-27 12:39] LABS: Bacteria Urine 2+ /hpf; Mucus Urine Rare /lpf; RBC Urine 51-75 /hpf (0-2); Squamous Epithelial Cell Urine Moderate /hpf (Few); WBC Clumps Urine Present /HPF; WBC Urine >75 /hpf
[2022-03-27 12:41] LABS: Add Urine Microscopic? YES
== END 2022-03-27 11:40 | disposition home or self-care (01) ==
LOC: ANHLAB 11:40
PROVIDERS: PCP Internal Medicine; Visit Provider Nurse Practitioner
DX: R35.0 Frequency of micturition (principal)
CPT/HCPCS: 81001; 87077; 87086; 87186

== ENCOUNTER 2022-04-12 18:00 | Inpatient (IN) | payer MEDICARE, OTHER, SELFPAY ==
[2022-04-12] VITALS (21 sets, daily range): BP systolic 121–179; BP diastolic 55–132; PULSE 57–74; RESP 13–27; TEMP 36.4–36.8; O2SAT 96–100; BMI 23.4; BMI 23.7
--- NOTE | ~2022-04-12 | XR_ITS ---
XR chest 1V portable 04/15/2022 11:21 Indication: Recheck of pneumonia Procedure: AP portable chest Comparison: Comparison to multiple prior studies sequentially, with oldest reviewed study dated 08/09. Findings: Cardiomegaly. Pacemaker leads are stable. There are changes of aortic valve replacement. Th ere are bilateral interstitial infiltrates with peribronchial thickening. Small left pleural effusion . No pneumothorax. Impression: 1: Bilateral interstitial infiltrates which may represent edema or atypical pneumonia. 2: Cardiomegaly. 3: Small left pleural effusion. Reviewed, dictated and finalized at location B. Impression: 1: Bilateral interstitial infiltrates which may represent edema or atypical pne umonia. 2: Cardiomegaly. 3: Small left pleural effusion.
--- NOTE | ~2022-04-12 | XR_ITS ---
EXAMINATION: XR chest 1V portable DATE: 04/16/2022 10:19 INDICATION: Pleural effusion. TECHNIQUE: A single frontal view of the chest was obtained on 2 radiographs. COMPARISON: Chest single view 04/15/2022, CT abdomen and pelvis 12/01/2021 FINDINGS: There are small pleural effusions. The lungs are hyperexpanded with lucencies, consistent w ith emphysema. There is a diffuse interstitial pattern in the lungs, consistent with mild pulmonary e carlita. A calcified right lung nodule is consistent with old granulomatous disease. No pneumothorax. Ca rdiomegaly is noted. There are changes of aortic valve replacement. There is a left chest pacer with leads in right atrium, right ventricle, and coronary sinus. Surgical clips overlie right upper chest. IMPRESSION: 1. Mild pulmonary edema. 2. Small pleural effusions. 3. Emphysema. 4. Cardiomegaly. Reviewed, dictated and finalized at location A.
--- NOTE | ~2022-04-12 | CT_ITS ---
EXAMINATION: CT brain wo con DATE: 04/18/2022 12:24 INDICATION: Dizziness TECHNIQUE: Computed tomography (CT) of the head was performed without intravenous contrast. Sagittal and coronal reconstructions were performed. The mA was adjusted according to patient size. Iterative reconstruction technique was employed. The dose-length product was 681.00 mGy-cm. COMPARISON: head CT dated 12/30/20 FINDINGS: No acute intracranial hemorrhage, acute infarction or abnormal extra axial fluid collection. There is mild scattered white matter hypoattenuation consistent with chronic small vessel ischemic disease. S ymmetric prominence of the sulci consistent with mild age-appropriate diffuse cerebral volume loss. V entricles are normal and symmetric. No mass/mass effect. Mild mucosal thickening the bilateral ethmoi d and maxillary sinuses. Near complete opacification of the bilateral sphenoid sinuses with thickened sclerotic kaur consistent with chronic sinusitis. Moderate-sized right mastoid effusion. Changes of bilateral intraocular lens replacement. Intracranial calcified cerebral atherosclerosis is noted. IMPRESSION: 1. Mild age-related changes the brain. No acute intracranial process. 2. Moderate-sized right mastoid effusion. 3. Chronic bilateral sphenoid sinusitis. Reviewed, dictated and finalized at location A.
--- NOTE | ~2022-04-12 | XR_ITS ---
EXAMINATION: XR chest 1V portable DATE: 04/12/2022 18:46 INDICATION: Shortness of breath. TECHNIQUE: A single frontal view of the chest was obtained. COMPARISON: Chest one view 12/01/2021, CT abdomen and pelvis 12/01/2021 FINDINGS: The lungs are hyperexpanded with lucencies, consistent with emphysema. There is a small lef t pleural effusion. There are airspace opacities in the lower lung zones. A calcified right lung nodu le is consistent with old granulomatous disease. No pneumothorax. The heart size is normal. There are changes of aortic valve replacement. There is a left chest pacer with leads in right atrium, right v entricle, and coronary sinus. Surgical clips overlie the right upper chest. IMPRESSION: 1. Stable small left pleural effusion. 2. Airspace opacities in the lower lung zones, consistent with atelectasis/scarring versus pneumonia. 3. Emphysema. Reviewed, dictated and finalized at location A. IMPRESSION: 1. Stable small left pleural effusion. 2. Airspace opacities in the lower lung zones, consistent with atelectasis/scar ring versus pneumonia. 3. Emphysema.
--- NOTE | 2022-04-12 18:28 | ECG_ITS ---
Measurements Intervals [place] Rate: 61 P: TN: 0 QRS: -90 QRSD: 145 T: 86 QT: 462 QTc: 469 Interpretive Statements ELECTRONIC VENTRICULAR PACEMAKER ABNORMAL RHYTHM ECG COMPARED TO ECG 12/01/2021 15:39:48 NO SIGNIFICANT CHANGES Electronically Signed On 04-13-2022 8:56:39 CDT by Sirisha Oliveira M.D.
--- NOTE | 2022-04-12 18:44 | ED.SOB ---
HPI - SOB/Dyspnea General Chief Complaint: Shortness of Breath/Dyspnea Stated Complaint: SOB, weak, COVID+ Time Seen by Provider: 04/12/22 18:04 History of Present Illness HPI Narrative: Patient is an 86-year-old male with a history of COPD on 2 L nasal cannula baseline, A. fib on Coumadin, CKD, hypertension presenting with weakness. Patient states that he was diagnosed with COVID-19 approximately a week ago. He has been recovering at home for the last week but he has been increasingly weak. States he feels too weak to complete his ADLs. He denies worsening shortness of breath or cough. Denies chest pain or lightheadedness. No palpitations. States he has decreased appetite but he has been able to tolerate p.o. No fevers, abdominal pain, vomiting, diarrhea, dysuria, leg swelling. Related Data Home Medications Medication Instructions Recorded Confirmed omega 6-odc-xxy-fish oil 1,000 mg 1 cap PO DAILY 08/31/21 04/12/22 (120 mg-180 mg) capsule (Fish Oil) ascorbic acid (vitamin C) 500 mg 1,000 mg PO DAILY 12/01/21 04/12/22 tablet ferrous sulfate 324 mg (65 mg 324 mg PO DAILY 12/01/21 04/12/22 iron) tablet,delayed release topiramate 50 mg tablet 25 mg PO BID 12/01/21 04/12/22 warfarin 1 mg tablet 3.5 mg PO DAILY 12/01/21 04/13/22 Vitamin D3 25 mcg PO WEEKLY 04/13/22 04/13/22 carvedilol 3.125 mg tablet 3.125 mg PO BID 04/13/22 04/13/22 pravastatin 20 mg tablet 20 mg PO DAILY 04/13/22 04/13/22 terazosin 2 mg capsule 2 mg PO DAILY 04/13/22 04/13/22 warfarin 6 mg tablet 6 mg PO 2XW 04/13/22 04/13/22 Allergies Allergy/AdvReac Type Severity Reaction Status Date / Time prednisolone Allergy Severe Loss of Verified 04/12/22 18:08 Consciousness adhesive tape Allergy Unknown Unknown Verified 04/12/22 18:08 atorvastatin Allergy Unknown Muscle Pain Verified 04/12/22 18:08 flecainide Allergy Unknown FACIAL Verified 04/12/22 18:08 NUMBNESS prednisone Allergy Unknown Unknown Verified 04/12/22 18:08 Review of Systems Review of Systems: All systems reviewed & are unremarkable except as noted in HPI and below [facility] Past Medical History Medical History (Updated 04/14/22 @ 21:59 by Karena Carrasco MD) Abdominal aortic aneurysm Anemia in chronic kidney disease Aortic valve stenosis, acquired Status post TAVR. Arthritis Atherosclerosis of [place] coronary artery of [place] heart Chronic anticoagulation Chronic atrial fibrillation, unspecified Chronic kidney disease, stage 4 (severe) Baseline creatinine is around 2.90. 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 COVID-19 Diabetic peripheral neuropathy Dyslipidemia Essential tremor Gout Hypertension, essential Loculated pleural effusion (07/2021) Nephrolithiasis Parapneumonic effusion (07/2021) Status post chest tube and intrapleural tPA. Paroxysmal atrial fibrillation (12/21/18) Being evaluated for possible ablation. Peripheral vascular disease of lower extremity Persistent atrial fibrillation Polymyalgia rheumatica Type 2 diabetes mellitus Ulcerative colitis Surgical History Surgical History (Updated 04/13/22 @ 13:32 by Prema Arenas, ACQUISITION MANAGER-[facility]) History of cardiac catheterization History of cataract extraction History of colonoscopy with polypectomy History of heart artery stent History of partial colectomy History of transcatheter aortic valve replacement (TAVR) (04/2020) History of umbilical hernia repair History of vascular surgery Multiple lower extremity stents and femoral popliteal bypass. Four and 1 leg and 5 in the other. Status post biventricular pacemaker [employer] biventricular pacemaker 05/2021 AV node ablation June/[address] Beltran at [facility] Family History Family History (Reviewed 04/12/22 @ 18:57 by Karena Carrasco,
[2022-04-12] MEDS: SODIUM CHLORIDE 0.9% IV 1,000 ML 999 ML IV CONT (18:56)
[2022-04-12 19:04] LABS: Basophils Percent Auto 0.1 % (0.2-1.2); Eosinophils Percent Auto 0.2 % (0-4.4); Hematocrit 41.1 % (42.0-52.0); Hemoglobin 12.6 g/dL (14.0-18.0); Immature Granulocyte Absolute 0.06 K/mm3 (0.00-0.031); Immature Granulocyte Percent A 0.7 % (0-0.5); Lymphocytes Percent Auto 6.8 % (18.3-44.2); Mean Corpuscular HGB Conc 30.7 g/dl (32-36); Mean Corpuscular Hemoglobin 30.7 pg (26-34); Mean Corpuscular Volume 100.2 fl (80-100); Mean Platelet Volume 11.3 fl (7.4-10.4); Monocytes Absolute Auto 0.9 K/mm3 (0.1-0.6); Monocytes Percent Auto 9.8 % (2.6-8.5); Neutrophils Absolute Auto 7.2 K/mm3 (1.3-6.7); Neutrophils Percent Auto 82.4 % (45.5-73.1); Platelet Count Result 157 k/mm3 (150-375); Red Cell Distribution Width 14.4 % (11.5-14.5); White Blood Count 8.8 K/mm3 (4.5-10.0)
[2022-04-12 19:15] LABS: Alanine Aminotransferase 19 U/L (6-50); Albumin Level 3.8 g/dL (3.5-5.1); Alkaline Phosphatase 206 U/L (38-126); Anion Gap 11 mmol/L (8-16); Aspartate Amino Transferase 27 U/L (17-59); Bilirubin,Total 0.6 mg/dL (0.2-1.3); Blood Urea Nitrogen 55 mg/dL (9-20); Calcium 8.9 mg/dL (8.4-10.2); Carbon Dioxide 21 mmol/L (22-30); Chloride 112 mmol/L (98-107); Estimated CRCL calculation 20 ml/min; Estimated Glomerular Filt Rate 26; Glucose 139 mg/dL (65-110); Potassium 4.9 mmol/L (3.4-5.0); Sodium 144 mmol/L (137-145)
[2022-04-12 19:27] LABS: NT Pro B Type Natriuretic Pept 7950 pg/mL (5-100); Troponin I 0.031 ng/mL (0.000-0.034)
--- NOTE | 2022-04-12 20:28 | PC.NURSE ---
EDP at bedside.
--- NOTE | 2022-04-12 20:30 | PC.NURSE ---
Pt okayed to discuss his care with daughter Tri Mendiola. This RN updated Tri on pt admission to hospital
--- NOTE | 2022-04-12 20:35 | PM.IMHP ---
H&P: HPI History of Present Illness Date/Time: 04/12/22 20:35 Chief Complaint: generalized weakness Narrative: This is an 87-year-old male with past medical history significant for Parkinson's disease, hypertension, aortic valve stenosis, chronic atrial fibrillation rate control and anticoagulated, chronic kidney disease, combined systolic and diastolic heart failure, biventricular pacemaker, diabetic peripheral neuropathy, polymyalgia rheumatica. Patient recently got COVID-19 is recovering a rehabilitation center after having suffered COVID as well patient now presents to the emergency room due to generalized weakness, Denies any fevers, rigors, chills, nausea, vomiting, diarrhea has had cough productive of sputum which is clear, no leg swelling, no chest pain, no PND, no orthopnea. Preliminary workup was significant for brain natriuretic peptide 7950, BUN 55, creatinine 2.4 patient tested positive for COVID, a chest x-ray was reported as: IMPRESSION: 1. Stable small left pleural effusion. 2. Airspace opacities in the lower lung zones, consistent with atelectasis/scarring versus pneumonia. 3. Emphysema. patient is being admitted for further evaluation management and treatment. Review of Systems Review of Systems: Generalized weakness Constitutional: Constitutional: Denies chills, Reports fatigue, Denies fever(s) and Reports weakness Eyes: Eyes: Denies change in vision ENT: Denies dysphagia, Denies vertigo, Denies dizziness and Denies odynophagia Cardiovascular: Cardiovascular: Denies chest pain, Denies irregular heart rhythm, Denies lightheadedness, Denies palpitations and Denies dyspnea on exertion Respiratory: Respiratory: Denies chest congestion, Reports cough and Denies dyspnea Gastrointestinal: Gastrointestinal: Denies abdominal pain, Denies dyspepsia, Denies heartburn, Denies diarrhea, Denies nausea and Denies vomiting Genitourinary: Genitourinary: Denies dysuria Musculoskeletal: Musculoskeletal: Reports muscle weakness Integumentary/Breasts: Skin/Breast: Denies rash Neurologic: Denies vertigo, Denies dizziness, Denies focal weakness and Denies Sensory deficit (Neuro) Psychiatric: Psychiatric: Reports no additional psychiatric complaints and Reports as per HPI Endocrine: Endocrine: Denies cold intolerance, Denies flushing, Denies heat intolerance, Denies polyphagia and Denies polydipsia Hematologic/Lymphatic: Hematologic/Lymphatic: Reports no additional hematologic/lymphatic complaints and Reports as per HPI Allergic/Immunologic: Allergic/Immunologic: Reports no additional allergic/immunologic complaints and Reports as per HPI [facility] Past Medical History Medical History Abdominal aortic aneurysm Anemia in chronic kidney disease Aortic valve stenosis, acquired Status post TAVR. Arthritis Atherosclerosis of [place] coronary artery of [place] heart Chronic anticoagulation Chronic atrial fibrillation, unspecified Chronic kidney disease, stage 4 (severe) Baseline creatinine is around 2.90. 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 COVID-19 Diabetic peripheral neuropathy Dyslipidemia Essential tremor Gout Hypertension, essential Loculated pleural effusion (07/2021) Nephrolithiasis Parapneumonic effusion (07/2021) Status post chest tube and intrapleural tPA. Paroxysmal atrial fibrillation (12/21/18) Being evaluated for possible ablation. Peripheral vascular disease of lower extremity Persistent atrial fibrillation Polymyalgia rheumatica Type 2 diabetes mellitus Ulcerative colitis Surgical History Surgical History History of cardiac catheterization History of cataract extraction History of colon
--- NOTE | 2022-04-12 20:47 | PC.NURSE ---
VORB per Dr. Carrasco initiate gates catheter for strict I&O and immobility/weakness.
[2022-04-12] MEDS: BUMETANIDE INJ 1 MG/4 ML VIAL IV PUSH (21:19)
[2022-04-12 21:34] LABS: Add Urine Microscopic? YES; Appearance Urine Cloudy (Clear); Bilirubin Urine Negative (Negative); Blood Urine Negative (Negative); Color Urine Yellow (Yellow); Glucose Urine UA Negative (Negative); Ketones Urine Negative (Negative); Leukocyte Esterase Ur Trace LEU/UL (Negative); Mucus Urine Rare /lpf; Nitrate Urine Negative (Negative); Protein Urine 2+ mg/dL (Negative); RBC Urine 0-2 /hpf (0-2); Specific Grav Ur 1.016 (1.001-1.035); Squamous Epithelial Cell Urine Rare /hpf (Few); Urobilinogen Urine Negative mg/dL (<2.0); WBC Urine 16-20 /hpf
[2022-04-12 21:45] LABS: SARS-CoV-2 RNA PCR Positive
[2022-04-12 21:49] LABS: Troponin I 0.028 ng/mL (0.000-0.034)
--- NOTE | 2022-04-12 23:10 | ADMGEN ---
This patient, Cipriano Garcia, was admitted to Medical Room 257-01. Patient/family oriented to hospital policies and general routines including ID bracelet, bed and alarms, visiting hours, pain management, procedures, bathroom and other care routines, personal items, smoking policy, room service/diet, and visiting hours. Information on how to activate the Rapid Response Team has been discussed. Patient/Family are encouraged to report perceived risks to care and to ask questions if they do not understand what they are told or what they should do.
[2022-04-13] VITALS (15 sets, daily range): BP systolic 122–154; BP diastolic 52–65; PULSE 59–82; RESP 18–20; TEMP 36.5–36.7; O2SAT 95–100
--- NOTE | 2022-04-13 | ECHO_ITS ---
Patient Info Name: Cipriano Garcia Age: 87 years : 1935 Gender: Male Ht: 67 in Wt: 151 lbs BSA: 1.81 m2 HR: 66 bpm BP: 154 / 56 mmHg Heart Rhythm: Indeterminant Exam Date: 04/13/2022 9:24 AM Exam Location: [facility] Patient Status: Inpatient Admit Date: 04/13/2022 Staff Ordering Physician: Yisel Kingsley MD Home Care Physical Therapist: Rhett Gutierrez RDCS Attending Provider: Prema Arenas Referring Physician: Sancho WHITTAKER; Exam Type: CA echo doppler color flow Study Info Indications - congestive heart failure Complete two-dimensional, color flow and Doppler transthoracic echocardiogram is performed with contrast to opacify the left ventricle and to improve the deliniation of the left ventricle endocardial borders. Contrast/Agitated Saline Contrast/Ag. Saline: Definity Amount: 2.00 ml Administered By: Rhett Gutierrez RDCS Existing IV Access: Yes IV Access Condition: patent with no signs of infiltration Summary 1. Normal left ventricular size with severe left ventricular dysfunction. The proximal anterior septal segments contract reasonably well. There is akinesis of the apex, apical lateral, apical septal and apical anterior kaur. The inferior wall, and mid anteroseptal kaur as well as the lateral wall is severely hypokinetic. Ejection fraction is calculated to be 17%, visually 20-25%. Grade 2 diastolic dysfunction is present. 2. Left atrial chamber dimension is moderately enlarged. 3. Right atrial chamber dimension is mildly enlarged. 4. There is a bioprosthetic valve present which appears normal. The peak flow is 1.9 M/SEC with a mean gradient of 7 mmHg and an aortic valve area 1.4-1.6 cm2. 5. There is mild mitral valve regurgitation. 6. There is moderate to severe tricuspid valve regurgitation. 7. Moderate pulmonary hypertension, estimated pulmonary arterial systolic pressure is 47 mmHg. 8. Dilated inferior vena cava with >50% collapse upon inspiration consistent with elevated right atrial pressure, 15 mmHg. 9. Rhythm is indeterminate. Left Ventricle Left ventricular chamber dimension is normal. Left ventricular systolic function is severely reduced, estimated at 20-25%. There is mildly increased left ventricular wall thickness. Left ventricular septal wall motion is normal. The left ventricular diastolic function is grade II diastolic dysfunction. Right Ventricle Right ventricular chamber dimension is normal. Right ventricular systolic function is normal. Linear artifact in right ventricle suggestive of catheter(s), pacemaker lead(s), or ICD lead(s). Left Atria Left atrial chamber dimension is moderately enlarged. Right Atria Right atrial chamber dimension is mildly enlarged. Linear artifact in the right atrium suggestive of catheter(s), pacemaker lead(s), or ICD lead(s). Aortic Valve The bioprosthetic aortic valve is trileaflet. There is no sclerosis of the bioprosthetic aortic valve leaflets. There is no bioprosthetic aortic valve stenosis. There is no regurgitation of the bioprosthetic aortic valve. Pulmonic Valve The pulmonic valve is normal. There is no pulmonic valve stenosis. There is trace pulmonic regurgitation. Mitral Valve The mitral valve has normal leaflets. There is no mitral valve stenosis. There is mild mitral valve regurgitation. The mitral valve annulus is moderately calcified. Tricuspid Valve The tricuspid valve leaflets are normal. There
[2022-04-13] MEDS: MELATONIN 5 MG TABLET PO ×2 (01:26→20:30)
[2022-04-13] MEDS: cefTRIAXone 2 GM in SODIUM CHLORIDE 0.9% IV 100 ML 200 ML IVPB (05:35)
[2022-04-13 07:26] LABS: INR 2.7; Prothrombin Time 27.5 Seconds (11.1-14.7)
[2022-04-13 07:33] LABS: Basophils Percent Auto 0.1 % (0.2-1.2); Eosinophils Percent Auto 0.3 % (0-4.4); Hematocrit 36.6 % (42.0-52.0); Immature Granulocyte Absolute 0.04 K/mm3 (0.00-0.031); Immature Granulocyte Percent A 0.6 % (0-0.5); Lymphocytes Absolute Auto 0.53 K/mm3 (0.9-3.2); Lymphocytes Percent Auto 7.3 % (18.3-44.2); Mean Corpuscular HGB Conc 30.1 g/dl (32-36); Mean Corpuscular Hemoglobin 29.7 pg (26-34); Mean Corpuscular Volume 98.9 fl (80-100); Mean Platelet Volume 11.5 fl (7.4-10.4); Monocytes Absolute Auto 0.7 K/mm3 (0.1-0.6); Neutrophils Absolute Auto 5.9 K/mm3 (1.3-6.7); Neutrophils Percent Auto 81.7 % (45.5-73.1); Platelet Count Result 142 k/mm3 (150-375); Red Cell Distribution Width 14.2 % (11.5-14.5); White Blood Count 7.3 K/mm3 (4.5-10.0)
[2022-04-13 07:40] LABS: Alanine Aminotransferase 16 U/L (6-50); Albumin Level 3.1 g/dL (3.5-5.1); Alkaline Phosphatase 169 U/L (38-126); Anion Gap 11 mmol/L (8-16); Aspartate Amino Transferase 22 U/L (17-59); Bilirubin,Total 0.4 mg/dL (0.2-1.3); Blood Urea Nitrogen 51 mg/dL (9-20); Calcium 8.4 mg/dL (8.4-10.2); Carbon Dioxide 20 mmol/L (22-30); Chloride 116 mmol/L (98-107); Estimated CRCL calculation 21 ml/min; Estimated Glomerular Filt Rate 29; Glucose 124 mg/dL (65-110); Magnesium 2.6 mg/dL (1.6-2.3); Potassium 5.1 mmol/L (3.4-5.0); Sodium 147 mmol/L (137-145)
[2022-04-13] MEDS: HYDROcodone/acetaminophen (*CRX) 10-325 MG TABLET 1 TAB PO ×2 (08:08→20:30)
[2022-04-13] MEDS: ASCORBIC ACID 500 MG TABLET 1000 MG PO (08:38)
[2022-04-13] MEDS: CARBIDOPA/LEVODOPA 25/100 MG TABLET 1 TABLET PO ×3 (08:38→17:13)
[2022-04-13] MEDS: amLODIPine BESYLATE 2.5 MG TABLET PO (08:38)
[2022-04-13] MEDS: BUMETANIDE 1 MG TABLET 2 MG PO (08:38)
[2022-04-13] MEDS: carvediloL 3.125 MG TABLET PO ×2 (08:38→17:13)
[2022-04-13] MEDS: TERAZOSIN HCL 1 MG CAPSULE 2 MG PO (08:39)
[2022-04-13] MEDS: ISOSORBIDE MONONITRATE 30 MG TAB.ER.24H PO (08:39)
[2022-04-13] MEDS: OMEGA 3 POLYUNSAT FATTY ACIDS 1 GM CAP PO (08:39)
[2022-04-13] MEDS: GABAPENTIN 300 MG CAPSULE PO ×2 (08:39→17:13)
[2022-04-13] MEDS: TOPIRAMATE 25 MG TABLET PO ×2 (08:39→20:30)
--- NOTE | 2022-04-13 13:16 | PM.IMPN ---
Progress Note: A&P Assessment and Plan (1) Pneumonia due to COVID-19 virus: Code(s): U07.1 - COVID-19; J12.82 - Pneumonia due to coronavirus disease 2018 Status: Acute Assessment and Plan: As demonstrated by CXR and also by COVID swab. Start Rocephin and Azithromycin. Pt. wears 2L oxygen chronically. Blood cultures are pending. Will need PT/OT evaluation prior to discharge. (2) Generalized weakness: Code(s): R53.1 - Weakness Status: Acute Assessment and Plan: Secondary to problem #1 (3) Status post biventricular pacemaker: Code(s): Z95.0 - Presence of cardiac pacemaker Status: Chronic (4) Paroxysmal atrial fibrillation: Code(s): I48.0 - Paroxysmal atrial fibrillation Status: Resolved Assessment and Plan: Pt. is currently rate controlled and is adequately anticoagulated. (5) Chronic respiratory failure with hypoxia, on home oxygen therapy: Code(s): J96.11 - Chronic respiratory failure with hypoxia; Z99.81 - Dependence on supplemental oxygen Status: Acute Assessment and Plan: Continue home supplemental oxygen of 2L. (6) Chronic kidney disease, stage 4 (severe): Code(s): N18.4 - Chronic kidney disease, stage 4 (severe) Status: Chronic Assessment and Plan: Monitor and if any worsening involve Nephrology. Currently Creatinine is starting to trend down. (7) Combined systolic and diastolic congestive heart failure: Code(s): I50.40 - Unspecified combined systolic (congestive) and diastolic (congestive) heart failure Status: Chronic Assessment and Plan: Elevated BUN present. Continue current diuretic dose. (8) S/P TAVR (transcatheter aortic valve replacement): Code(s): Z95.2 - Presence of prosthetic heart valve Status: Chronic Assessment and Plan: Continue Coumadin for anticoagulation. (9) Chronic obstructive pulmonary disease: Qualifiers: COPD type: COPD with acute lower respiratory infection Qualified Code(s): J44.0 - Chronic obstructive pulmonary disease with (acute) lower respiratory infection Code(s): J44.9 - Chronic obstructive pulmonary disease, unspecified Status: Chronic Assessment and Plan: Not in current exacerbation. Monitor. Time Spent With Patient Time with patient: 15 - 25 minutes Subjective Date/time seen: 04/13/22 1200 This pt. was examined at the bedside today in interval assessment after being admitted with COVID PNA, generalized weakness and overall fatigued. He is receiving IV abx of Rocephin and Azithromycin for his abx treatment. In addition, we are monitoring his renal function with serial labs. His renal function is slightly improved overnight from 2.4-->2.2. His BNP is elevated at 7950 yesterday which is overtly elevated from his previous labs. He appears euvolemic however. Will continue with current regimen of Bumex, Terazosin, and will continue to monitor fluid volume status in the setting of his renal failure. He reports feeling fatigued and tired. He is wearing 2L home oxygen and he denies any new complaints or symptoms at this time. His INR is 2.7 and is table today as is his Magnesium. He has no CP, dyspnea, N/V/D Exam Const: General: comfortable and no acute distress HENMT: Mouth: Yes moist mucous membranes Eyes: General: appearance normal, both eyes and all related structures Sclera: sclerae normal Neck: Neck: supple and No no JVD Resp: Effort & Inspection: normal respiratory effort Auscultation: crackles bilateral in the lower lung brown Cardio: Rate: regular rate Rhythm: regular rhythm Heart sounds: no gallops, no murmurs and no rubs GI: Inspection: non-distended GI Palp: Yes Soft to palpation, No Tenderness to palpation present (GI) and No Guarding due to palpation present (GI) Other: Ostomy present. Skin: General skin exam: normal color, no rashes or lesions noted and
[2022-04-13] MEDS: WARFARIN (*PBKC) 2.5 MG TABLET PO (17:13)
[2022-04-13] MEDS: WARFARIN (*PBKC) 1 MG TABLET PO (17:14)
[2022-04-13] MEDS: FERROUS SULFATE 324 MG TABLET PO (20:30)
[2022-04-14] VITALS (12 sets, daily range): BP systolic 110–148; BP diastolic 44–58; PULSE 59–68; RESP 17–18; TEMP 36.1–37.1; O2SAT 96–99
[2022-04-14] MEDS: cefTRIAXone 2 GM in SODIUM CHLORIDE 0.9% IV 100 ML 200 ML IVPB (04:29)
[2022-04-14] MEDS: HYDROcodone/acetaminophen (*CRX) 10-325 MG TABLET 1 TAB PO ×2 (05:12→20:04)
[2022-04-14 05:25] LABS: Basophils Percent Auto 0.3 % (0.2-1.2); Eosinophils Absolute Auto 0.1 K/mm3 (0-0.3); Eosinophils Percent Auto 1.7 % (0-4.4); Hematocrit 36.6 % (42.0-52.0); Hemoglobin 11.2 g/dL (14.0-18.0); Immature Granulocyte Absolute 0.04 K/mm3 (0.00-0.031); Immature Granulocyte Percent A 0.7 % (0-0.5); Lymphocytes Absolute Auto 0.51 K/mm3 (0.9-3.2); Lymphocytes Percent Auto 8.8 % (18.3-44.2); Mean Corpuscular HGB Conc 30.6 g/dl (32-36); Mean Corpuscular Hemoglobin 30.3 pg (26-34); Mean Corpuscular Volume 98.9 fl (80-100); Mean Platelet Volume 12.2 fl (7.4-10.4); Monocytes Absolute Auto 0.7 K/mm3 (0.1-0.6); Monocytes Percent Auto 11.9 % (2.6-8.5); Neutrophils Absolute Auto 4.5 K/mm3 (1.3-6.7); Neutrophils Percent Auto 76.6 % (45.5-73.1); Platelet Count Result 144 k/mm3 (150-375); Red Cell Distribution Width 14.2 % (11.5-14.5); White Blood Count 5.8 K/mm3 (4.5-10.0)
[2022-04-14 05:35] LABS: INR 2.5; Prothrombin Time 26.4 Seconds (11.1-14.7)
[2022-04-14 05:43] LABS: Alanine Aminotransferase 10 U/L (6-50); Alkaline Phosphatase 184 U/L (38-126); Anion Gap 10 mmol/L (8-16); Aspartate Amino Transferase 26 U/L (17-59); Bilirubin,Total 0.5 mg/dL (0.2-1.3); Blood Urea Nitrogen 51 mg/dL (9-20); Calcium 8.2 mg/dL (8.4-10.2); Carbon Dioxide 20 mmol/L (22-30); Chloride 113 mmol/L (98-107); Estimated CRCL calculation 22 ml/min; Estimated Glomerular Filt Rate 30; Glucose 113 mg/dL (65-110); Magnesium 2.5 mg/dL (1.6-2.3); Sodium 143 mmol/L (137-145)
[2022-04-14] MEDS: CARBIDOPA/LEVODOPA 25/100 MG TABLET 1 TABLET PO ×3 (08:32→17:29)
[2022-04-14] MEDS: carvediloL 3.125 MG TABLET PO ×2 (08:32→17:29)
[2022-04-14] MEDS: BUMETANIDE 1 MG TABLET 2 MG PO (08:33)
[2022-04-14] MEDS: ISOSORBIDE MONONITRATE 30 MG TAB.ER.24H PO (08:33)
[2022-04-14] MEDS: GABAPENTIN 300 MG CAPSULE PO ×2 (08:33→17:29)
[2022-04-14] MEDS: ASCORBIC ACID 500 MG TABLET 1000 MG PO (08:33)
[2022-04-14] MEDS: amLODIPine BESYLATE 2.5 MG TABLET PO (08:33)
[2022-04-14] MEDS: TOPIRAMATE 25 MG TABLET PO ×2 (08:33→20:04)
[2022-04-14] MEDS: FEBUXOSTAT 40 MG TABLET PO (08:34)
[2022-04-14] MEDS: TERAZOSIN HCL 1 MG CAPSULE 2 MG PO (08:34)
[2022-04-14] MEDS: OMEGA 3 POLYUNSAT FATTY ACIDS 1 GM CAP PO (08:34)
--- NOTE | 2022-04-14 13:49 | PM.IMPN ---
Progress Note: A&P Assessment and Plan (1) Pneumonia due to COVID-19 virus: Code(s): U07.1 - COVID-19; J12.82 - Pneumonia due to coronavirus disease 2019 Status: Acute Assessment and Plan: As demonstrated by CXR and also by COVID swab. Start Rocephin and Azithromycin. Pt. wears 2L oxygen chronically. Blood cultures are pending. Will need PT/OT evaluation prior to discharge. (2) Generalized weakness: Code(s): R53.1 - Weakness Status: Acute Assessment and Plan: Secondary to problem #1 (3) Status post biventricular pacemaker: Code(s): Z95.0 - Presence of cardiac pacemaker Status: Chronic (4) Paroxysmal atrial fibrillation: Code(s): I48.0 - Paroxysmal atrial fibrillation Status: Chronic Assessment and Plan: Pt. is currently rate controlled and is adequately anticoagulated. (5) Chronic respiratory failure with hypoxia, on home oxygen therapy: Code(s): J96.11 - Chronic respiratory failure with hypoxia; Z99.81 - Dependence on supplemental oxygen Status: Chronic Assessment and Plan: Continue home supplemental oxygen of 2L. (6) Chronic kidney disease, stage 4 (severe): Code(s): N18.4 - Chronic kidney disease, stage 4 (severe) Status: Chronic Assessment and Plan: Monitor and if any worsening involve Nephrology. Creatinine is trending downward and is at 2.10 today. (7) Combined systolic and diastolic congestive heart failure: Code(s): I50.40 - Unspecified combined systolic (congestive) and diastolic (congestive) heart failure Status: Chronic Assessment and Plan: Elevated BUN present with interval decrease in creatinine. Continue current diuretic dose. (8) S/P TAVR (transcatheter aortic valve replacement): Code(s): Z95.2 - Presence of prosthetic heart valve Status: Chronic Assessment and Plan: Continue Coumadin for anticoagulation. (9) Chronic obstructive pulmonary disease: Qualifiers: COPD type: COPD with acute lower respiratory infection Qualified Code(s): J44.0 - Chronic obstructive pulmonary disease with (acute) lower respiratory infection Code(s): J44.9 - Chronic obstructive pulmonary disease, unspecified Status: Chronic Assessment and Plan: Not in current exacerbation. Monitor. (10) Anticoagulated on Coumadin: Code(s): Z79.01 - assisted (current) use of anticoagulants Status: Acute Assessment and Plan: Trend INR. Today it is 2.5. Continue current dose of Coumadin and adjust as needed. Time Spent With Patient Time with patient: 15 - 25 minutes Subjective Date/time seen: 04/14/22 1030 This pt. is examined at the bedside today in interval assessment. He is sitting up at the side of the bed and appears weak and tired. He reports he just walked into the bathroom and cleaned up and brushed his teeth. He has complaints today of his Bumex making him pee frequently and he is concerned that secondary to his weakness he won't be able to make it to the restroom in time. He was reassured that the weakness from his COVID will pass, but it will take some time. In the interim, he is stable with his respiratory status and he has no new complaints, fevers or symptoms. He denies any CP, dyspnea, N/V/D, urinary complaints, headache, dizziness or lightheadedness otherwise. Pt. appears to be depressed at this time, but he does seem to be physically improving. Suspicion that pt will need temporary placement for strengthening once medically clear. Review of Systems Review of Systems: All systems reviewed & are unremarkable except as noted in HPI and below Exam Const: General: comfortable and no acute distress HENMT: Mouth: Yes moist mucous membranes Eyes: General: appearance normal, both eyes and all related structures Sclera: sclerae normal Neck: Neck: supple and No no JVD Resp: Effort & Inspection: norm
--- NOTE | 2022-04-14 16:33 | PC.NURSE ---
Took wound photos of patient's left heel. Patient has wound of unknown etiology. Attempted to download wound photos which were taken on the camera from [employer] [facility] and was unsuccessful. Charge Nurse Debbie Garrido helped me to insert photo numbers since they would not download to patient's chart.
[2022-04-14] MEDS: WARFARIN (*PBKC) 1 MG TABLET PO (17:29)
[2022-04-14] MEDS: WARFARIN (*PBKC) 2.5 MG TABLET PO (17:29)
[2022-04-14] MEDS: FERROUS SULFATE 324 MG TABLET PO (20:04)
[2022-04-14] MEDS: MELATONIN 5 MG TABLET PO (20:04)
[2022-04-15] VITALS (17 sets, daily range): BP systolic 126–149; BP diastolic 41–89; PULSE 59–72; RESP 18; TEMP 36.6–36.8; O2SAT 91–98
[2022-04-15] MEDS: cefTRIAXone 2 GM in SODIUM CHLORIDE 0.9% IV 100 ML 200 ML IVPB (04:31)
[2022-04-15 06:00] LABS: Basophils Percent Auto 0.2 % (0.2-1.2); Eosinophils Absolute Auto 0.1 K/mm3 (0-0.3); Eosinophils Percent Auto 1.7 % (0-4.4); Hematocrit 37.9 % (42.0-52.0); Hemoglobin 11.4 g/dL (14.0-18.0); Immature Granulocyte Absolute 0.04 K/mm3 (0.00-0.031); Immature Granulocyte Percent A 0.8 % (0-0.5); Lymphocytes Absolute Auto 0.48 K/mm3 (0.9-3.2); Mean Corpuscular HGB Conc 30.1 g/dl (32-36); Mean Corpuscular Hemoglobin 30.6 pg (26-34); Mean Corpuscular Volume 101.6 fl (80-100); Mean Platelet Volume 11.6 fl (7.4-10.4); Monocytes Absolute Auto 0.7 K/mm3 (0.1-0.6); Monocytes Percent Auto 12.4 % (2.6-8.5); Neutrophils Absolute Auto 4.1 K/mm3 (1.3-6.7); Neutrophils Percent Auto 75.9 % (45.5-73.1); Platelet Count Result 140 k/mm3 (150-375); Red Blood Count 3.73 M/mm3 (4.6-6.20); White Blood Count 5.3 K/mm3 (4.5-10.0)
[2022-04-15 06:09] LABS: INR 2.8; Prothrombin Time 28.9 Seconds (11.1-14.7)
[2022-04-15 07:43] LABS: Alanine Aminotransferase 11 U/L (6-50); Albumin Level 2.9 g/dL (3.5-5.1); Alkaline Phosphatase 193 U/L (38-126); Anion Gap 10 mmol/L (8-16); Aspartate Amino Transferase 25 U/L (17-59); Bilirubin,Total 0.3 mg/dL (0.2-1.3); Blood Urea Nitrogen 46 mg/dL (9-20); Calcium 8.1 mg/dL (8.4-10.2); Carbon Dioxide 23 mmol/L (22-30); Chloride 110 mmol/L (98-107); Estimated CRCL calculation 21 ml/min; Estimated Glomerular Filt Rate 29; Glucose 118 mg/dL (65-110); Magnesium 2.3 mg/dL (1.6-2.3); Potassium 5.1 mmol/L (3.4-5.0); Sodium 143 mmol/L (137-145)
[2022-04-15] MEDS: FEBUXOSTAT 40 MG TABLET PO (08:18)
[2022-04-15] MEDS: TOPIRAMATE 25 MG TABLET PO ×2 (08:18→20:23)
[2022-04-15] MEDS: ISOSORBIDE MONONITRATE 30 MG TAB.ER.24H PO (08:18)
[2022-04-15] MEDS: GABAPENTIN 300 MG CAPSULE PO ×2 (08:18→16:38)
[2022-04-15] MEDS: OMEGA 3 POLYUNSAT FATTY ACIDS 1 GM CAP PO (08:18)
[2022-04-15] MEDS: ASCORBIC ACID 500 MG TABLET 1000 MG PO (08:18)
[2022-04-15] MEDS: BUMETANIDE 1 MG TABLET 2 MG PO (08:19)
[2022-04-15] MEDS: CARBIDOPA/LEVODOPA 25/100 MG TABLET 1 TABLET PO ×3 (08:19→16:39)
[2022-04-15] MEDS: carvediloL 3.125 MG TABLET PO ×2 (08:19→16:38)
[2022-04-15] MEDS: amLODIPine BESYLATE 2.5 MG TABLET PO (08:19)
[2022-04-15] MEDS: TERAZOSIN HCL 1 MG CAPSULE 2 MG PO (08:20)
--- NOTE | 2022-04-15 12:51 | P.PNIM_ITS ---
Progress Note: A&P Assessment and Plan (1) Pneumonia due to COVID-19 virus: Code(s): U07.1 - COVID-19; J12.82 - Pneumonia due to coronavirus disease 2018 Status: Acute Assessment and Plan: * As demonstrated by CXR and also by COVID swab. * Switch meds to Cefdinir and Azithromycin orally. * Pt. wears 2L oxygen chronically. * Blood cultures are pending. * PT recommends SNF placement. * Continue Atrovent and Albuterol * Robitussin DM * Incentive spirometry and Cornet (2) Generalized weakness: Code(s): R53.1 - Weakness Status: Acute Assessment and Plan: * Secondary to problem #1 * Suspect his heart failure is contributing to his overall weakness as not only does he still appear to have acute infection, but his EF was noted to be 17% and despite his daily Bumex, he has continued Pulmonary edema on CXR that was performed today. Pt. given a one time dose of Zaroxolyn based upon his assessment today. * Cardiology re-consulted today to maximize his treatment of heart failure. (3) Status post biventricular pacemaker: Code(s): Z95.0 - Presence of cardiac pacemaker Status: Chronic (4) Paroxysmal atrial fibrillation: Code(s): I48.0 - Paroxysmal atrial fibrillation Status: Chronic Assessment and Plan: * Pt. is currently rate controlled and is adequately anticoagulated. (5) Chronic respiratory failure with hypoxia, on home oxygen therapy: Code(s): J96.11 - Chronic respiratory failure with hypoxia; Z99.81 - Dependence on supplemental oxygen Status: Chronic Assessment and Plan: * Continue home supplemental oxygen of 2L. * Suspicious cause is combination of heart failure and COPD. (6) Chronic kidney disease, stage 4 (severe): Code(s): N18.4 - Chronic kidney disease, stage 4 (severe) Status: Chronic Assessment and Plan: * Monitor and if any worsening involve Nephrology. * Creatinine is trending up today to 2.2. Suspect his chronic renal failure is progressing. * Will monitor. (7) Combined systolic and diastolic congestive heart failure: Code(s): I50.40 - Unspecified combined systolic (congestive) and diastolic (congestive) heart failure Status: Chronic Assessment and Plan: * Re-consult of Cardiology is made as patient appears to be having extra pulmona ry edema on CXR. * One time dose of Zaroxolyn was given today in addition to his Bumex based upon physical exam and CXR. * Accurate I&O and daily weights ordered. (8) S/P TAVR (transcatheter aortic valve replacement): Code(s): Z95.2 - Presence of prosthetic heart valve Status: Chronic Assessment and Plan: * Continue Coumadin for anticoagulation. * INR has been stable. (9) Chronic obstructive pulmonary disease: Qualifiers: COPD type: COPD with acute lower respiratory infection Qualified Code(s): J44.0 - Chronic obstructive pulmonary disease with (acute) lower respiratory infection Code(s): J44.9 - Chronic obstructive pulmonary disease, unspecified Status: Chronic Assessment and Plan: * Not in current exacerbation. * Monitor. * IS and Cornet with nebulizer treatments of Atrovent and Albuterol. 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 Today it is 2.8 * Continue current dose of Coumadin and adjust as needed. Time Spent With Patient Time with patient: 15 - 25 minutes Subjective Da
--- NOTE | 2022-04-15 12:51 | PM.IMPN ---
Progress Note: A&P Assessment and Plan (1) Pneumonia due to COVID-19 virus: Code(s): U07.1 - COVID-19; J12.82 - Pneumonia due to coronavirus disease 2018 Status: Acute Assessment and Plan: As demonstrated by CXR and also by COVID swab. Switch meds to Cefdinir and Azithromycin orally. Pt. wears 2L oxygen chronically. Blood cultures are pending. PT recommends SNF placement. Continue Atrovent and Albuterol Robitussin DM Incentive spirometry and Cornet (2) Generalized weakness: Code(s): R53.1 - Weakness Status: Acute Assessment and Plan: Secondary to problem #1 Suspect his heart failure is contributing to his overall weakness as not only does he still appear to have acute infection, but his EF was noted to be 17% and despite his daily Bumex, he has continued Pulmonary edema on CXR that was performed today. Pt. given a one time dose of Zaroxolyn based upon his assessment today. Cardiology re-consulted today to maximize his treatment of heart failure. (3) Status post biventricular pacemaker: Code(s): Z95.0 - Presence of cardiac pacemaker Status: Chronic (4) Paroxysmal atrial fibrillation: Code(s): I48.0 - Paroxysmal atrial fibrillation Status: Chronic Assessment and Plan: Pt. is currently rate controlled and is adequately anticoagulated. (5) Chronic respiratory failure with hypoxia, on home oxygen therapy: Code(s): J96.11 - Chronic respiratory failure with hypoxia; Z99.81 - Dependence on supplemental oxygen Status: Chronic Assessment and Plan: Continue home supplemental oxygen of 2L. Suspicious cause is combination of heart failure and COPD. (6) Chronic kidney disease, stage 4 (severe): Code(s): N18.4 - Chronic kidney disease, stage 4 (severe) Status: Chronic Assessment and Plan: Monitor and if any worsening involve Nephrology. Creatinine is trending up today to 2.2. Suspect his chronic renal failure is progressing. Will monitor. (7) Combined systolic and diastolic congestive heart failure: Code(s): I50.40 - Unspecified combined systolic (congestive) and diastolic (congestive) heart failure Status: Chronic Assessment and Plan: Re-consult of Cardiology is made as patient appears to be having extra pulmonary edema on CXR. One time dose of Zaroxolyn was given today in addition to his Bumex based upon physical exam and CXR. Accurate I&O and daily weights ordered. (8) S/P TAVR (transcatheter aortic valve replacement): Code(s): Z95.2 - Presence of prosthetic heart valve Status: Chronic Assessment and Plan: Continue Coumadin for anticoagulation. INR has been stable. (9) Chronic obstructive pulmonary disease: Qualifiers: COPD type: COPD with acute lower respiratory infection Qualified Code(s): J44.0 - Chronic obstructive pulmonary disease with (acute) lower respiratory infection Code(s): J44.9 - Chronic obstructive pulmonary disease, unspecified Status: Chronic Assessment and Plan: Not in current exacerbation. Monitor. IS and Cornet with nebulizer treatments of Atrovent and Albuterol. (10) Anticoagulated on Coumadin: Code(s): Z79.01 - supervisor intermediates (current) use of anticoagulants Status: Acute Assessment and Plan: Trend INR. Today it is 2.8 Continue current dose of Coumadin and adjust as needed. Time Spent With Patient Time with patient: 15 - 25 minutes Subjective Date/time seen: 04/15/22 0930 This patient was examined today and was found to have not slept well secondary to a persistent, wet sounding cough. He has no productivity, but is witnessed to have a wet, congested sounding cough. Repeat CXR shows persistent infiltrates and a small pleural effusion. His most recent ECHO from 04/13/22 shows an EF of 17%. He has been taking his Bumex as ordered, and he is going to receive a one time dose o
[2022-04-15] MEDS: metOLazone 2.5 MG TABLET PO (13:47)
[2022-04-15] MEDS: IPRATROPIUM BR 0.02% INH SOLN 0.5 MG/2.5 ML VIAL INHALATION ×2 (14:21→21:44)
[2022-04-15] MEDS: ALBUTEROL SULFATE NEB 2.5 MG/3 ML INH INHALATION ×2 (14:21→21:44)
--- NOTE | 2022-04-15 15:48 | PM.CNCAR ---
Assessment and Plan Assessment and plan (1) Cardiomyopathy: Code(s): I42.9 - Cardiomyopathy, unspecified <ALEXUS Quiroga - Last Filed: 04/15/22 17:02> Status: Acute <ALEXUS Quiroga - Last Filed: 04/15/22 17:02> Assessment and Plan: Longstanding cardiomyopathy now with EF 20-25%, previously 30-35%. Clinically does not appear to be in any decompensated heart failure on exam. Chest xray shows persistent small pleural effusion. Stable on home O2, able to lie flat, no edema. Difficult to optimize his medical therapy because of his CKD. Cannot add SGLT2 inhibitor as his GFR is 14. Also unable to add KELLEY/ARNI, MRA. Can advance coreg to 6.25mg b.i.d His fluid balance is positive but does not appear significantly volume overloaded on exam Continue Bumex 2mg daily. He was given 2.5mg metolazone today as well. Check Chest Xray in a.m. Check BNP and BMP in a.m. Accurate intake and output Daily standing weight Low Na diet <ALEXUS Quiroga - Last Filed: 04/15/22 17:02> (2) COVID-19: Code(s): U07.1 - COVID-19 <ALEXUS Quiroga - Last Filed: 04/15/22 17:02> Status: Acute <ALEXUS Quiroga - Last Filed: 04/15/22 17:02> Assessment and Plan: Management per hospitalist <ALEXUS Quiroga - Last Filed: 04/15/22 17:02> (3) Anticoagulated on Coumadin: Code(s): Z79.01 - snf (current) use of anticoagulants <ALEXUS Quiroga - Last Filed: 04/15/22 17:02> Status: Acute <ALEXUS Quiroga - Last Filed: 04/15/22 17:02> Assessment and Plan: On warfarin. INR 2.8 today. <ALEXUS Quiroga - Last Filed: 04/15/22 17:02> (4) Pacemaker: Code(s): Z95.0 - Presence of cardiac pacemaker <ALEXUS Quiroga - Last Filed: 04/15/22 17:02> Status: Acute <ALEXUS Quiroga - Last Filed: 04/15/22 17:02> Assessment and Plan: Device check in November 2021 showed normal device functioning, 22% A paced, 98% V paced, AF burden 1.4%. <ALEXUS Quiroga - Last Filed: 04/15/22 17:02> Assessment and Plan: Attending Addendum: I have personally seen and examined this patient at bedside. I agree with the above documentation and plan of care as outlined. -patient is a very pleasant yet complicated 87-year-old male with history of CAD, P 80, chronic heart failure with reduced ejection fraction, history of TAVR, paroxysmal atrial fibrillation, biventricular pacemaker status post AV antonio ablation, CKD, chronic respiratory failure on O2, PATRICIA hypertension followed by Dr. Oliveira as an outpatient who presented to the emergency department 04/12/2022 complaining of weakness. His is diagnosed with COVID and he tested positive for COVID after admission. He has been treated for COVID pneumonia and given diuresis for elevated BNP and bilateral infiltrates. He denies edema or abdominal fullness. We have been consulted due to his history of heart failure. He was given an additional dose of oral metolazone 2.5 mg this morning due to pleural effusion noted on chest x-ray. Patient is lying flat in bed and denies shortness of breath. Patient states he does not take his Bumex at home regularly because of urinary frequency. He states he may take the equivalent of 1 mg Bumex every other day or less. He has been maintained on his Imdur, warfarin, carvedilol, amlodipine. He is on azithromycin and cefdinir. He denies palpitations, chest pain, bleeding or falls. Exam: Pleasant elderly male slow moving but lying supine in bed, NAD, A&Ox3, nonfocal neuro exam O2 via nasal cannula No JVD Lungs diminished breath sounds diffusely no obvious rales or wheezes respirations unlabored Cardio RRR, S1/S2 soft early systolic murmur Abd soft, NT/ND, +BS Ext no edema, clubbing, or cyanosis Plan of Care: Patient clinically is relatively euvolemic at this time. Continue bumetanide without furth
[2022-04-15] MEDS: WARFARIN (*PBKC) 3 MG TABLET 6 MG PO (16:38)
[2022-04-15] MEDS: FERROUS SULFATE 324 MG TABLET PO (20:23)
[2022-04-15] MEDS: HYDROcodone/acetaminophen (*CRX) 10-325 MG TABLET 1 TAB PO (20:23)
[2022-04-15] MEDS: MELATONIN 5 MG TABLET PO (20:23)
[2022-04-16] VITALS (19 sets, daily range): BP systolic 123–129; BP diastolic 50–68; PULSE 59–76; RESP 16–20; TEMP 36.4–36.8; O2SAT 94–97
[2022-04-16] MEDS: IPRATROPIUM BR 0.02% INH SOLN 0.5 MG/2.5 ML VIAL INHALATION ×4 (02:15→20:10)
[2022-04-16] MEDS: ALBUTEROL SULFATE NEB 2.5 MG/3 ML INH INHALATION ×4 (02:15→20:10)
[2022-04-16 06:22] LABS: Basophils Percent Auto 0.3 % (0.2-1.2); Eosinophils Absolute Auto 0.1 K/mm3 (0-0.3); Hematocrit 34.3 % (42.0-52.0); Hemoglobin 10.5 g/dL (14.0-18.0); Immature Granulocyte Absolute 0.04 K/mm3 (0.00-0.031); Immature Granulocyte Percent A 0.7 % (0-0.5); Immature Platelet Fraction Pct 3.6 % (0.9-11.2); Lymphocytes Percent Auto 10.1 % (18.3-44.2); Mean Corpuscular HGB Conc 30.6 g/dl (32-36); Mean Corpuscular Hemoglobin 29.7 pg (26-34); Mean Corpuscular Volume 97.2 fl (80-100); Mean Platelet Volume 11.3 fl (7.4-10.4); Monocytes Absolute Auto 0.7 K/mm3 (0.1-0.6); Monocytes Percent Auto 12.3 % (2.6-8.5); Neutrophils Absolute Auto 4.5 K/mm3 (1.3-6.7); Neutrophils Percent Auto 75.6 % (45.5-73.1); Platelet Count Result 128 k/mm3 (150-375); Red Blood Count 3.53 M/mm3 (4.6-6.20); Red Cell Distribution Width 13.8 % (11.5-14.5)
[2022-04-16 06:32] LABS: Prothrombin Time 30.5 Seconds (11.1-14.7)
[2022-04-16 06:37] LABS: Alanine Aminotransferase 10 U/L (6-50); Albumin Level 2.9 g/dL (3.5-5.1); Alkaline Phosphatase 202 U/L (38-126); Anion Gap 12 mmol/L (8-16); Aspartate Amino Transferase 22 U/L (17-59); Bilirubin,Total 0.2 mg/dL (0.2-1.3); Blood Urea Nitrogen 44 mg/dL (9-20); Carbon Dioxide 23 mmol/L (22-30); Chloride 108 mmol/L (98-107); Estimated CRCL calculation 22 ml/min; Estimated Glomerular Filt Rate 30; Glucose 102 mg/dL (65-110); Magnesium 2.2 mg/dL (1.6-2.3); Potassium 4.4 mmol/L (3.4-5.0); Sodium 143 mmol/L (137-145)
[2022-04-16 06:41] LABS: NT Pro B Type Natriuretic Pept 6730 pg/mL (5-100)
[2022-04-16] MEDS: TERAZOSIN HCL 1 MG CAPSULE 2 MG PO (09:05)
[2022-04-16] MEDS: AZITHROMYCIN 250 MG TABLET 500 MG PO (09:05)
[2022-04-16] MEDS: TOPIRAMATE 25 MG TABLET PO ×2 (09:05→21:14)
[2022-04-16] MEDS: FEBUXOSTAT 40 MG TABLET PO (09:05)
[2022-04-16] MEDS: ISOSORBIDE MONONITRATE 30 MG TAB.ER.24H PO (09:05)
[2022-04-16] MEDS: CARBIDOPA/LEVODOPA 25/100 MG TABLET 1 TABLET PO ×3 (09:06→16:39)
[2022-04-16] MEDS: ASCORBIC ACID 500 MG TABLET 1000 MG PO (09:06)
[2022-04-16] MEDS: BUMETANIDE 1 MG TABLET 2 MG PO (09:06)
[2022-04-16] MEDS: amLODIPine BESYLATE 2.5 MG TABLET PO (09:06)
[2022-04-16] MEDS: GABAPENTIN 300 MG CAPSULE PO ×2 (09:06→16:39)
[2022-04-16] MEDS: CEFDINIR 300 MG CAPSULE PO (09:06)
[2022-04-16] MEDS: OMEGA 3 POLYUNSAT FATTY ACIDS 1 GM CAP PO (09:06)
[2022-04-16] MEDS: HYDROcodone/acetaminophen (*CRX) 10-325 MG TABLET 1 TAB PO ×2 (09:07→21:14)
[2022-04-16] MEDS: carvediloL 6.25 MG TABLET PO ×2 (09:07→21:14)
--- NOTE | 2022-04-16 13:30 | P.PNIM_ITS ---
Progress Note: A&P Assessment and Plan (1) Pneumonia due to COVID-19 virus: Code(s): U07.1 - COVID-19; J12.82 - Pneumonia due to coronavirus disease 2018 Status: Acute Assessment and Plan: * As demonstrated by CXR and also by COVID swab. * Switch meds to Cefdinir and Azithromycin orally. * Pt. wears 2L oxygen chronically, but was able to wean it off. He now has oxygen replaced with his persistent cough. * Blood cultures are preliminarily negative. * PT recommends SNF placement. * Continue Atrovent and Albuterol * Robitussin DM * Incentive spirometry and Cornet * Sputum culture has been obtained and is pending. (2) Generalized weakness: Code(s): R53.1 - Weakness Status: Acute Assessment and Plan: * Secondary to problem #1 * Suspect his heart failure is contributing to his overall weakness as not only does he still appear to have acute infection, but his EF was noted to be 17% and despite his daily Bumex, he has continued Pulmonary edema on CXR that was performed today. Pt. given a one time dose of Zaroxolyn based upon his assessment today. * Cardiology re-consulted yesterday to maximize heart failure medications safely and they did. Repeat CXR today is unchanged. (3) Status post biventricular pacemaker: Code(s): Z95.0 - Presence of cardiac pacemaker Status: Chronic (4) Paroxysmal atrial fibrillation: Code(s): I48.0 - Paroxysmal atrial fibrillation Status: Chronic Assessment and Plan: * Pt. is currently rate controlled and is adequately anticoagulated. (5) Chronic respiratory failure with hypoxia, on home oxygen therapy: Code(s): J96.11 - Chronic respiratory failure with hypoxia; Z99.81 - Dependence on supplemental oxygen Status: Chronic Assessment and Plan: * Continue home supplemental oxygen of 2L. * Suspicious cause is combination of heart failure and COPD. (6) Chronic kidney disease, stage 4 (severe): Code(s): N18.4 - Chronic kidney disease, stage 4 (severe) Status: Chronic Assessment and Plan: * Monitor and if any worsening involve Nephrology. * Creatinine has trended down to his baseline and he is stable at this point. * Will monitor. (7) Combined systolic and diastolic congestive heart failure: Code(s): I50.40 - Unspecified combined systolic (congestive) and diastolic (congestive) heart failure Status: Chronic Assessment and Plan: * Re-consult of Cardiology is made as patient appears to be having extra pulmonary edema on CXR. * One time dose of Zaroxolyn was given today in addition to his Bumex based upon physical exam and CXR. * Accurate I&O and daily weights ordered. (8) S/P TAVR (transcatheter aortic valve replacement): Code(s): Z95.2 - Presence of prosthetic heart valve Status: Chronic Assessment and Plan: * Continue Coumadin for anticoagulation. * INR has been stable. (9) Chronic obstructive pulmonary disease: Qualifiers: COPD type: COPD with acute lower respiratory infection Qualified Code(s): J44.0 - Chronic obstructive pulmonary disease with (acute) lower respiratory infection Code(s): J44.9 - Chronic obstructive pulmonary disease, unspecified Status: Chronic Assessment and Plan: * Not in current exacerbation. * Monitor. * IS and Cornet with nebulizer treatments of Atrovent and Albuterol. 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
--- NOTE | 2022-04-16 13:30 | PM.IMPN ---
Progress Note: A&P Assessment and Plan (1) Pneumonia due to COVID-19 virus: Code(s): U07.1 - COVID-19; J12.82 - Pneumonia due to coronavirus disease 2018 Status: Acute Assessment and Plan: As demonstrated by CXR and also by COVID swab. Switch meds to Cefdinir and Azithromycin orally. Pt. wears 2L oxygen chronically, but was able to wean it off. He now has oxygen replaced with his persistent cough. Blood cultures are preliminarily negative. PT recommends SNF placement. Continue Atrovent and Albuterol Robitussin DM Incentive spirometry and [facility] Sputum culture has been obtained and is pending. (2) Generalized weakness: Code(s): R53.1 - Weakness Status: Acute Assessment and Plan: Secondary to problem #1 Suspect his heart failure is contributing to his overall weakness as not only does he still appear to have acute infection, but his EF was noted to be 17% and despite his daily Bumex, he has continued Pulmonary edema on CXR that was performed today. Pt. given a one time dose of Zaroxolyn based upon his assessment today. Cardiology re-consulted yesterday to maximize heart failure medications safely and they did. Repeat CXR today is unchanged. (3) Status post biventricular pacemaker: Code(s): Z95.0 - Presence of cardiac pacemaker Status: Chronic (4) Paroxysmal atrial fibrillation: Code(s): I48.0 - Paroxysmal atrial fibrillation Status: Chronic Assessment and Plan: Pt. is currently rate controlled and is adequately anticoagulated. (5) Chronic respiratory failure with hypoxia, on home oxygen therapy: Code(s): J96.11 - Chronic respiratory failure with hypoxia; Z99.81 - Dependence on supplemental oxygen Status: Chronic Assessment and Plan: Continue home supplemental oxygen of 2L. Suspicious cause is combination of heart failure and COPD. (6) Chronic kidney disease, stage 4 (severe): Code(s): N18.4 - Chronic kidney disease, stage 4 (severe) Status: Chronic Assessment and Plan: Monitor and if any worsening involve Nephrology. Creatinine has trended down to his baseline and he is stable at this point. Will monitor. (7) Combined systolic and diastolic congestive heart failure: Code(s): I50.40 - Unspecified combined systolic (congestive) and diastolic (congestive) heart failure Status: Chronic Assessment and Plan: Re-consult of Cardiology is made as patient appears to be having extra pulmonary edema on CXR. One time dose of Zaroxolyn was given today in addition to his Bumex based upon physical exam and CXR. Accurate I&O and daily weights ordered. (8) S/P TAVR (transcatheter aortic valve replacement): Code(s): Z95.2 - Presence of prosthetic heart valve Status: Chronic Assessment and Plan: Continue Coumadin for anticoagulation. INR has been stable. (9) Chronic obstructive pulmonary disease: Qualifiers: COPD type: COPD with acute lower respiratory infection Qualified Code(s): J44.0 - Chronic obstructive pulmonary disease with (acute) lower respiratory infection Code(s): J44.9 - Chronic obstructive pulmonary disease, unspecified Status: Chronic Assessment and Plan: Not in current exacerbation. Monitor. IS and Cornet with nebulizer treatments of Atrovent and Albuterol. (10) Anticoagulated on Coumadin: Code(s): Z79.01 - skilled nursing (current) use of anticoagulants Status: Acute Assessment and Plan: Trend INR. Today it is 2.8 Continue current dose of Coumadin and adjust as needed. Time Spent With Patient Time with patient: 25 - 35 minutes Subjective Date/time seen: 04/16/22 13:30 This pt. was examined at the bedside again today for his persistent Covid PNA and his overall weakness. He continues to have a cough that is very congested sounding and is now productive. He has had to replace his oxygen t
--- NOTE | 2022-04-16 14:13 | PCOTNOTE ---
Attempted patient this PM currently with raspatory therapy.
[2022-04-16] MEDS: WARFARIN (*PBKC) 1 MG TABLET PO (16:40)
[2022-04-16] MEDS: WARFARIN (*PBKC) 2.5 MG TABLET PO (16:40)
[2022-04-16] MEDS: FERROUS SULFATE 324 MG TABLET PO (21:14)
[2022-04-16] MEDS: MELATONIN 5 MG TABLET PO (21:14)
[2022-04-17] VITALS (18 sets, daily range): BP systolic 114–150; BP diastolic 50–65; PULSE 60–82; RESP 16–20; TEMP 36.2–36.8; O2SAT 96–99
[2022-04-17] MEDS: ALBUTEROL SULFATE NEB 2.5 MG/3 ML INH INHALATION (02:03)
[2022-04-17] MEDS: IPRATROPIUM BR 0.02% INH SOLN 0.5 MG/2.5 ML VIAL INHALATION (02:03)
[2022-04-17 05:40] LABS: Basophils Percent Auto 0.4 % (0.2-1.2); Eosinophils Absolute Auto 0.1 K/mm3 (0-0.3); Eosinophils Percent Auto 1.4 % (0-4.4); Hematocrit 34.2 % (42.0-52.0); Hemoglobin 10.6 g/dL (14.0-18.0); Immature Granulocyte Absolute 0.03 K/mm3 (0.00-0.031); Immature Granulocyte Percent A 0.5 % (0-0.5); Lymphocytes Percent Auto 14.3 % (18.3-44.2); Mean Corpuscular Hemoglobin 30.8 pg (26-34); Mean Corpuscular Volume 99.4 fl (80-100); Mean Platelet Volume 10.6 fl (7.4-10.4); Monocytes Absolute Auto 0.6 K/mm3 (0.1-0.6); Monocytes Percent Auto 10.9 % (2.6-8.5); Neutrophils Absolute Auto 4.1 K/mm3 (1.3-6.7); Neutrophils Percent Auto 72.5 % (45.5-73.1); Platelet Count Result 138 k/mm3 (150-375); Red Blood Count 3.44 M/mm3 (4.6-6.20); Red Cell Distribution Width 13.8 % (11.5-14.5); White Blood Count 5.6 K/mm3 (4.5-10.0)
[2022-04-17 05:51] LABS: INR 2.8; Prothrombin Time 28.9 Seconds (11.1-14.7)
[2022-04-17 05:59] LABS: Alanine Aminotransferase 11 U/L (6-50); Albumin Level 2.9 g/dL (3.5-5.1); Alkaline Phosphatase 213 U/L (38-126); Anion Gap 7 mmol/L (8-16); Aspartate Amino Transferase 20 U/L (17-59); Bilirubin,Total 0.4 mg/dL (0.2-1.3); Blood Urea Nitrogen 52 mg/dL (9-20); Calcium 7.9 mg/dL (8.4-10.2); Carbon Dioxide 23 mmol/L (22-30); Chloride 108 mmol/L (98-107); Estimated CRCL calculation 22 ml/min; Estimated Glomerular Filt Rate 30; Glucose 106 mg/dL (65-110); Magnesium 2.2 mg/dL (1.6-2.3); Potassium 3.7 mmol/L (3.4-5.0); Sodium 138 mmol/L (137-145)
[2022-04-17] MEDS: ALBUTEROL SULFATE (*SP) INHALER 1 PUFF (08:22)
[2022-04-17] MEDS: ASCORBIC ACID 500 MG TABLET 1000 MG PO (08:37)
[2022-04-17] MEDS: CARBIDOPA/LEVODOPA 25/100 MG TABLET 1 TABLET PO ×3 (08:37→16:57)
[2022-04-17] MEDS: BUMETANIDE 1 MG TABLET 2 MG PO (08:37)
[2022-04-17] MEDS: carvediloL 6.25 MG TABLET PO ×2 (08:37→21:45)
[2022-04-17] MEDS: AZITHROMYCIN 250 MG TABLET 500 MG PO (08:37)
[2022-04-17] MEDS: amLODIPine BESYLATE 2.5 MG TABLET PO (08:37)
[2022-04-17] MEDS: TOPIRAMATE 25 MG TABLET PO ×2 (08:38→21:45)
[2022-04-17] MEDS: FEBUXOSTAT 40 MG TABLET PO (08:38)
[2022-04-17] MEDS: OMEGA 3 POLYUNSAT FATTY ACIDS 1 GM CAP PO (08:38)
[2022-04-17] MEDS: GABAPENTIN 300 MG CAPSULE PO ×2 (08:38→16:57)
[2022-04-17] MEDS: ISOSORBIDE MONONITRATE 30 MG TAB.ER.24H PO (08:38)
[2022-04-17] MEDS: CEFDINIR 300 MG CAPSULE PO (08:38)
[2022-04-17] MEDS: TERAZOSIN HCL 1 MG CAPSULE 2 MG PO (08:38)
[2022-04-17] MEDS: HYDROcodone/acetaminophen (*CRX) 10-325 MG TABLET 1 TAB PO ×2 (08:43→21:45)
[2022-04-17 12:35] LABS: Vitamin D 25 Hydroxy 31.5 ng/mL
[2022-04-17 12:43] LABS: Thyroid Stimulating Hormone Reflex 0.451 uIU/mL (0.465-4.68)
[2022-04-17 13:15] LABS: Free T4 Free Thyroxine Reflex 1.28 ng/dL (0.78-2.19)
[2022-04-17] MEDS: ALBUTEROL SULFATE (*SP) AEROSOL 1 PUFF 2 PUFF INHALATION ×2 (15:21→19:56)
--- NOTE | 2022-04-17 15:45 | P.PNIM_ITS ---
Progress Note: A&P Assessment and Plan (1) Pneumonia due to COVID-19 virus: Code(s): U07.1 - COVID-19; J12.82 - Pneumonia due to coronavirus disease 2018 Status: Acute Assessment and Plan: * As demonstrated by CXR and also by COVID swab. Positive test date 04/12/22 at our facility. He reports testing positive 04/05/22 at home, but is unconfirmed. * 04/17/22 antibiotic day 5: Cefdinir and Azithromycin orally. Stop Azithromycin after today's dose. * Pt. wears 2L oxygen chronically, but was able to wean it off. He now has oxygen replaced with his persistent cough. * Blood cultures negative to date. * Continue MDI Albuterol Q6 hours * Robitussin DM * Incentive spirometry and Cornet * Sputum culture pending preliminary growth gram positive cocci and bacilli * Patient did not require increased O2 needs- hold off on Remdesivir or Dexamethasone. (2) Generalized weakness: Code(s): R53.1 - Weakness Status: Acute Assessment and Plan: * Secondary to problem #1 and chronic combined CHF EF 17% * Continue diuretics per Cardiology recommendations. Repeat CXR 04/16/22 is unchanged. * TSH 0.451, free T4 1.28, total T3 pending * B12 and folate pending * Vitamin D 25-OH 31.5. Will trial Vitamin D3 supplement to keep >40 (3) Paroxysmal atrial fibrillation: Code(s): I48.0 - Paroxysmal atrial fibrillation Status: Chronic Assessment and Plan: chronic, stable, rate controlled continue Coreg and warfarin (4) Chronic respiratory failure with hypoxia, on home oxygen therapy: Code(s): J96.11 - Chronic respiratory failure with hypoxia; Z99.81 - Dependence on supplemental oxygen Status: Chronic Assessment and Plan: Chronic, stable. Patient is on 2 L home O2 chronically * SpO2 96% on 2 L nasal cannula, which is baseline * Continue antibiotics x7 days per 1. And diuresis for chronic CHF (5) Chronic kidney disease, stage 4 (severe): Code(s): N18.4 - Chronic kidney disease, stage 4 (severe) Status: Chronic Assessment and Plan: chronic, stable, baseline 2-3, GFR 26-30 * renal function at baseline currently * continue to monitor I/Os and daily weights * avoid nephrotoxic agents * consider consulting Nephrology if renal function worsens while inpatient (6) Combined systolic and diastolic congestive heart failure: Qualifiers: Heart failure chronicity: chronic Qualified Code(s): I50.42 - Chronic combined systolic (congestive) and diastolic (congestive) heart failure Code(s): I50.40 - Unspecified combined systolic (congestive) and diastolic (congestive) heart failure Status: Chronic Assessment and Plan: chronic, stable. Patient has combined severe systolic dysfunction with EF of 17% and grade 2 diastolic dysfunction * Cardiology was consulted and recommend continuing Bumex without further escalation * continue Bumex 2 mg daily, Coreg b.i.d., isosorbide 30 mg daily and statin * One time dose of Zaroxolyn was given 04/16/2022 based upon physical exam and CXR. * Accurate I&O and daily weights ordered. (7) S/P TAVR (transcatheter aortic valve replacement): Code(s): Z95.2 - Presence of prosthetic heart valve Status: Chronic Assessment and Plan: * Continue Warfarin anticoagulation, patient is currently taking * INR 2.8 (8) Chronic obstructive pulmonary disease: Qualifiers: COPD type: COPD with acute lower respiratory infection Qualified Code(s): J44.0 - Chronic obstructive pulmonary disease with (acute) lower respir
--- NOTE | 2022-04-17 15:45 | PM.IMPN ---
Progress Note: A&P Assessment and Plan (1) Pneumonia due to COVID-19 virus: Code(s): U07.1 - COVID-19; J12.82 - Pneumonia due to coronavirus disease 2018 Status: Acute Assessment and Plan: As demonstrated by CXR and also by COVID swab. Positive test date 04/12/22 at our facility. He reports testing positive 04/05/22 at home, but is unconfirmed. 04/17/22 antibiotic day 5: Cefdinir and Azithromycin orally. Stop Azithromycin after today's dose. Pt. wears 2L oxygen chronically, but was able to wean it off. He now has oxygen replaced with his persistent cough. Blood cultures negative to date. Continue MDI Albuterol Q6 hours Robitussin DM Incentive spirometry and Cornet Sputum culture pending preliminary growth gram positive cocci and bacilli Patient did not require increased O2 needs- hold off on Remdesivir or Dexamethasone. (2) Generalized weakness: Code(s): R53.1 - Weakness Status: Acute Assessment and Plan: Secondary to problem #1 and chronic combined CHF EF 17% Continue diuretics per Cardiology recommendations. Repeat CXR 04/16/22 is unchanged. TSH 0.451, free T4 1.28, total T3 pending B12 and folate pending Vitamin D 25-OH 31.5. Will trial Vitamin D3 supplement to keep >40 (3) Paroxysmal atrial fibrillation: Code(s): I48.0 - Paroxysmal atrial fibrillation Status: Chronic Assessment and Plan: chronic, stable, rate controlled continue Coreg and warfarin (4) Chronic respiratory failure with hypoxia, on home oxygen therapy: Code(s): J96.11 - Chronic respiratory failure with hypoxia; Z99.81 - Dependence on supplemental oxygen Status: Chronic Assessment and Plan: Chronic, stable. Patient is on 2 L home O2 chronically SpO2 96% on 2 L nasal cannula, which is baseline Continue antibiotics x7 days per 1. And diuresis for chronic CHF (5) Chronic kidney disease, stage 4 (severe): Code(s): N18.4 - Chronic kidney disease, stage 4 (severe) Status: Chronic Assessment and Plan: chronic, stable, baseline 2-3, GFR 26-30 renal function at baseline currently continue to monitor I/Os and daily weights avoid nephrotoxic agents consider consulting Nephrology if renal function worsens while inpatient (6) Combined systolic and diastolic congestive heart failure: Qualifiers: Heart failure chronicity: chronic Qualified Code(s): I50.42 - Chronic combined systolic (congestive) and diastolic (congestive) heart failure Code(s): I50.40 - Unspecified combined systolic (congestive) and diastolic (congestive) heart failure Status: Chronic Assessment and Plan: chronic, stable. Patient has combined severe systolic dysfunction with EF of 17% and grade 2 diastolic dysfunction Cardiology was consulted and recommend continuing Bumex without further escalation continue Bumex 2 mg daily, Coreg b.i.d., isosorbide 30 mg daily and statin One time dose of Zaroxolyn was given 04/16/2022 based upon physical exam and CXR. Accurate I&O and daily weights ordered. (7) S/P TAVR (transcatheter aortic valve replacement): Code(s): Z95.2 - Presence of prosthetic heart valve Status: Chronic Assessment and Plan: Continue Warfarin anticoagulation, patient is currently taking INR 2.8 (8) Chronic obstructive pulmonary disease: Qualifiers: COPD type: COPD with acute lower respiratory infection Qualified Code(s): J44.0 - Chronic obstructive pulmonary disease with (acute) lower respiratory infection Code(s): J44.9 - Chronic obstructive pulmonary disease, unspecified Status: Chronic Assessment and Plan: chronic, Not in current exacerbation. Monitor. IS and Cornet with nebulizer treatments of Atrovent and Albuterol. Continue antibiotics as above (9) Anticoagulated on Coumadin: Code(s): Z79.01 - [facility] (current) use of anticoagulants Stat
[2022-04-17] MEDS: WARFARIN (*PBKC) 1 MG TABLET PO (16:57)
[2022-04-17] MEDS: WARFARIN (*PBKC) 2.5 MG TABLET PO (16:58)
[2022-04-17 21:10] LABS: Folic Acid 11.1 ng/mL (2.76->20)
[2022-04-17 21:42] LABS: Total Triiodothyronine (T3) 0.61 NG/ML (0.97-1.69)
[2022-04-17] MEDS: FERROUS SULFATE 324 MG TABLET PO (21:45)
[2022-04-17] MEDS: MELATONIN 5 MG TABLET PO (21:45)
[2022-04-18] VITALS (13 sets, daily range): BP systolic 119–132; BP diastolic 54–61; PULSE 59–87; RESP 12–18; TEMP 35.9–36.4; O2SAT 95–97
[2022-04-18] MEDS: ALBUTEROL SULFATE (*SP) AEROSOL 1 PUFF 2 PUFF INHALATION ×4 (01:12→20:53)
[2022-04-18 05:22] LABS: Hematocrit 34.4 % (42.0-52.0); Hemoglobin 10.5 g/dL (14.0-18.0); Mean Corpuscular HGB Conc 30.5 g/dl (32-36); Mean Corpuscular Hemoglobin 30.3 pg (26-34); Mean Corpuscular Volume 99.4 fl (80-100); Mean Platelet Volume 10.8 fl (7.4-10.4); Platelet Count Result 131 k/mm3 (150-375); Red Blood Count 3.46 M/mm3 (4.6-6.20); Red Cell Distribution Width 13.7 % (11.5-14.5); White Blood Count 5.9 K/mm3 (4.5-10.0)
[2022-04-18 05:29] LABS: INR 2.9; Prothrombin Time 29.1 Seconds (11.1-14.7)
[2022-04-18 05:31] LABS: Anion Gap 13 mmol/L (8-16); Blood Urea Nitrogen 51 mg/dL (9-20); Carbon Dioxide 24 mmol/L (22-30); Chloride 106 mmol/L (98-107); Estimated CRCL calculation 19 ml/min; Estimated Glomerular Filt Rate 26; Glucose 115 mg/dL (65-110); Potassium 3.6 mmol/L (3.4-5.0); Sodium 143 mmol/L (137-145)
[2022-04-18] MEDS: ISOSORBIDE MONONITRATE 30 MG TAB.ER.24H PO (09:15)
[2022-04-18] MEDS: BUMETANIDE 1 MG TABLET 2 MG PO (09:15)
[2022-04-18] MEDS: OMEGA 3 POLYUNSAT FATTY ACIDS 1 GM CAP PO (09:15)
[2022-04-18] MEDS: TOPIRAMATE 25 MG TABLET PO ×2 (09:15→19:56)
[2022-04-18] MEDS: CARBIDOPA/LEVODOPA 25/100 MG TABLET 1 TABLET PO ×3 (09:16→18:24)
[2022-04-18] MEDS: GABAPENTIN 300 MG CAPSULE PO ×2 (09:16→16:21)
[2022-04-18] MEDS: TERAZOSIN HCL 1 MG CAPSULE 2 MG PO (09:16)
[2022-04-18] MEDS: amLODIPine BESYLATE 2.5 MG TABLET PO (09:16)
[2022-04-18] MEDS: CEFDINIR 300 MG CAPSULE PO (09:16)
[2022-04-18] MEDS: ASCORBIC ACID 500 MG TABLET 1000 MG PO (09:16)
[2022-04-18] MEDS: CHOLECALCIFEROL 1,000 UNITS TABLET 2000 UNITS PO (09:17)
[2022-04-18] MEDS: carvediloL 6.25 MG TABLET PO ×2 (09:17→19:56)
[2022-04-18] MEDS: FEBUXOSTAT 40 MG TABLET PO (09:19)
[2022-04-18] MEDS: HYDROcodone/acetaminophen (*CRX) 10-325 MG TABLET 1 TAB PO ×2 (09:27→19:55)
--- NOTE | 2022-04-18 14:07 | PC.NURSE ---
Per Mavis, patient is off COVID precautions.
--- NOTE | 2022-04-18 15:50 | P.PNIM_ITS ---
Progress Note: A&P Assessment and Plan (1) Pneumonia due to COVID-19 virus: Code(s): U07.1 - COVID-19; J12.82 - Pneumonia due to coronavirus disease 2018 Status: Acute Assessment and Plan: As demonstrated by CXR and also by COVID swab. Positive test date 04/12/22 at our facility. He reports testing positive 04/05/22 at home, but is unconfirmed. * 04/17/22 antibiotic day 5: Cefdinir and Azithromycin orally. Stop Azithromycin after today's dose. * Pt. wears 2L oxygen chronically, but was able to wean it off. He now has oxygen replaced with his persistent cough. * Blood cultures negative to date. * Continue MDI Albuterol Q6 hours * Robitussin DM * Incentive spirometry and Cornet * Sputum culture pending preliminary growth gram positive cocci and bacilli * Patient did not require increased O2 needs- hold off on Remdesivir or Dexamethasone. * 04/18/22 antibiotic day 6 cefdinir 300 mg by mouth daily. (2) Generalized weakness: Code(s): R53.1 - Weakness Status: Acute Assessment and Plan: Secondary to problem #1 and chronic combined CHF EF 17% * Continue diuretics per Cardiology recommendations. Repeat CXR 04/16/22 is unchanged. * TSH 0.451, free T4 1.28, total T3 0.61; unclear clinical significance. Continue to monitor. * B12 and folate within normal limits. * Vitamin D 25-OH 31.5. Vitamin D3 supplement to keep >40 (3) Paroxysmal atrial fibrillation: Code(s): I48.0 - Paroxysmal atrial fibrillation Status: Chronic Assessment and Plan: chronic, stable, rate controlled continue Coreg and warfarin (4) Chronic respiratory failure with hypoxia, on home oxygen therapy: Code(s): J96.11 - Chronic respiratory failure with hypoxia; Z99.81 - Dependence on supplemental oxygen Status: Chronic Assessment and Plan: Chronic, stable. Patient is on 2 L home O2 chronically * SpO2 96% on 2 L nasal cannula, which is baseline * Continue antibiotics x7 days per 1. And PO diuresis for chronic CHF (5) Chronic kidney disease, stage 4 (severe): Code(s): N18.4 - Chronic kidney disease, stage 4 (severe) Status: Chronic Assessment and Plan: chronic, stable, baseline 2-3, GFR 26-30 * renal function at baseline currently * continue to monitor I/Os and daily weights * avoid nephrotoxic agents * consider consulting Nephrology if renal function worsens while inpatient (6) Combined systolic and diastolic congestive heart failure: Qualifiers: Heart failure chronicity: chronic Qualified Code(s): I50.42 - Chronic combined systolic (congestive) and diastolic (congestive) heart failure Code(s): I50.40 - Unspecified combined systolic (congestive) and diastolic (congestive) heart failure Status: Chronic Assessment and Plan: chronic, stable. Patient has combined severe systolic dysfunction with EF of 17% and grade 2 diastolic dysfunction * Cardiology was consulted and recommend continuing Bumex without further escalation * continue Bumex 2 mg daily, Coreg b.i.d., isosorbide 30 mg daily and statin * One time dose of Zaroxolyn was given 04/16/2022 based upon physical exam and CXR. * Accurate I&O and daily weights ordered. (7) S/P TAVR (transcatheter aortic valve replacement): Code(s): Z95.2 - Presence of prosthetic heart valve Status: Chronic Assessment and Plan: * Continue Warfarin anticoagulation, patient is currently taking * INR 2.9 (8) Chronic obstructive pulmonary disease: Qualifiers: COPD type: COPD with acute lower resp
--- NOTE | 2022-04-18 15:50 | PM.IMPN ---
Progress Note: A&P Assessment and Plan (1) Pneumonia due to COVID-19 virus: Code(s): U07.1 - COVID-19; J12.82 - Pneumonia due to coronavirus disease 2018 Status: Acute Assessment and Plan: As demonstrated by CXR and also by COVID swab. Positive test date 04/12/22 at our facility. He reports testing positive 04/05/22 at home, but is unconfirmed. 04/17/22 antibiotic day 5: Cefdinir and Azithromycin orally. Stop Azithromycin after today's dose. Pt. wears 2L oxygen chronically, but was able to wean it off. He now has oxygen replaced with his persistent cough. Blood cultures negative to date. Continue MDI Albuterol Q6 hours Robitussin DM Incentive spirometry and Cornet Sputum culture pending preliminary growth gram positive cocci and bacilli Patient did not require increased O2 needs- hold off on Remdesivir or Dexamethasone. 04/18/22 antibiotic day 6 cefdinir 300 mg by mouth daily. (2) Generalized weakness: Code(s): R53.1 - Weakness Status: Acute Assessment and Plan: Secondary to problem #1 and chronic combined CHF EF 17% Continue diuretics per Cardiology recommendations. Repeat CXR 04/16/22 is unchanged. TSH 0.451, free T4 1.28, total T3 0.61; unclear clinical significance. Continue to monitor. B12 and folate within normal limits. Vitamin D 25-OH 31.5. Vitamin D3 supplement to keep >40 (3) Paroxysmal atrial fibrillation: Code(s): I48.0 - Paroxysmal atrial fibrillation Status: Chronic Assessment and Plan: chronic, stable, rate controlled continue Coreg and warfarin (4) Chronic respiratory failure with hypoxia, on home oxygen therapy: Code(s): J96.11 - Chronic respiratory failure with hypoxia; Z99.81 - Dependence on supplemental oxygen Status: Chronic Assessment and Plan: Chronic, stable. Patient is on 2 L home O2 chronically SpO2 96% on 2 L nasal cannula, which is baseline Continue antibiotics x7 days per 1. And PO diuresis for chronic CHF (5) Chronic kidney disease, stage 4 (severe): Code(s): N18.4 - Chronic kidney disease, stage 4 (severe) Status: Chronic Assessment and Plan: chronic, stable, baseline 2-3, GFR 26-30 renal function at baseline currently continue to monitor I/Os and daily weights avoid nephrotoxic agents consider consulting Nephrology if renal function worsens while inpatient (6) Combined systolic and diastolic congestive heart failure: Qualifiers: Heart failure chronicity: chronic Qualified Code(s): I50.42 - Chronic combined systolic (congestive) and diastolic (congestive) heart failure Code(s): I50.40 - Unspecified combined systolic (congestive) and diastolic (congestive) heart failure Status: Chronic Assessment and Plan: chronic, stable. Patient has combined severe systolic dysfunction with EF of 17% and grade 2 diastolic dysfunction Cardiology was consulted and recommend continuing Bumex without further escalation continue Bumex 2 mg daily, Coreg b.i.d., isosorbide 30 mg daily and statin One time dose of Zaroxolyn was given 04/16/2022 based upon physical exam and CXR. Accurate I&O and daily weights ordered. (7) S/P TAVR (transcatheter aortic valve replacement): Code(s): Z95.2 - Presence of prosthetic heart valve Status: Chronic Assessment and Plan: Continue Warfarin anticoagulation, patient is currently taking INR 2.9 (8) Chronic obstructive pulmonary disease: Qualifiers: COPD type: COPD with acute lower respiratory infection Qualified Code(s): J44.0 - Chronic obstructive pulmonary disease with (acute) lower respiratory infection Code(s): J44.9 - Chronic obstructive pulmonary disease, unspecified Status: Chronic Assessment and Plan: chronic, Not in current exacerbation. Monitor. IS and Cornet with nebulizer treatments of Atrovent and Albuterol. Continue antibiotics as above
[2022-04-18] MEDS: WARFARIN (*PBKC) 2.5 MG TABLET PO (16:21)
[2022-04-18] MEDS: WARFARIN (*PBKC) 1 MG TABLET PO (16:22)
[2022-04-18] MEDS: FERROUS SULFATE 324 MG TABLET PO (19:56)
[2022-04-19] VITALS (7 sets, daily range): BP systolic 120–129; BP diastolic 50; PULSE 60–69; RESP 14–18; TEMP 36; O2SAT 95–98
[2022-04-19] MEDS: ALBUTEROL SULFATE (*SP) AEROSOL 1 PUFF 2 PUFF INHALATION ×2 (02:10→09:56)
[2022-04-19 05:30] LABS: Hematocrit 35.3 % (42.0-52.0); Hemoglobin 10.7 g/dL (14.0-18.0); Mean Corpuscular HGB Conc 30.3 g/dl (32-36); Mean Corpuscular Volume 98.9 fl (80-100); Mean Platelet Volume 10.7 fl (7.4-10.4); Platelet Count Result 146 k/mm3 (150-375); Red Blood Count 3.57 M/mm3 (4.6-6.20); Red Cell Distribution Width 13.8 % (11.5-14.5); White Blood Count 5.5 K/mm3 (4.5-10.0)
[2022-04-19 05:36] LABS: INR 2.9; Prothrombin Time 29.2 Seconds (11.1-14.7)
--- NOTE | 2022-04-19 08:51 | P.DS_ITS ---
DS: Admitting Diagnosis Discharge Date 04/19/22 1123 Admitting Diagnosis COVID19 pneumonia Generalized weakness DS: Discharge Diagnosis Discharge Diagnosis (1) Pneumonia due to COVID-19 virus: Code(s): U07.1 - COVID-19; J12.82 - Pneumonia due to coronavirus disease 2019 Status: Acute Assessment and Plan: As demonstrated by CXR and also by COVID swab. Positive test date 04/12/22 at our facility. He reports testing positive 04/05/22 at home, but is unconfirmed. * 04/17/22 antibiotic day 5: Cefdinir and Azithromycin orally. Stop Azithromycin after today's dose. * Pt. wears 2L oxygen chronically, but was able to wean it off. He now has oxygen replaced with his persistent cough. * Blood cultures negative to date. * Continue supportive care- Continue MDI Albuterol Q6 hours, Robitussin DM, Incentive spirometry and Cornet * Sputum culture pending preliminary growth gram positive cocci and bacilli * Patient did not require increased O2 needs- hold off on Remdesivir or Dexamethasone. * 04/18/22 antibiotic day 6 cefdinir 300 mg by mouth daily. * completed 5 days Azithromycin 04/17/22 and 7-days cephalosporins 04/19/22 (2) Generalized weakness: Code(s): R53.1 - Weakness Status: Acute Assessment and Plan: Secondary to problem #1 and chronic combined CHF EF 17% * Continue diuretics per Cardiology recommendations. Repeat CXR 04/16/22 is unchanged. * TSH 0.451, free T4 1.28, total T3 0.61; unclear clinical significance. Continue to monitor. * B12 and folate within normal limits. * Vitamin D 25-OH 31.5. Vitamin D3 supplement to keep >40 (3) Paroxysmal atrial fibrillation: Code(s): I48.0 - Paroxysmal atrial fibrillation Status: Chronic Assessment and Plan: chronic, stable, rate controlled continue Coreg and warfarin (4) Chronic respiratory failure with hypoxia, on home oxygen therapy: Code(s): J96.11 - Chronic respiratory failure with hypoxia; Z99.81 - Dependence on supplemental oxygen Status: Chronic Assessment and Plan: Chronic, stable. Patient is on 2 L home O2 chronically * SpO2 96% on 2 L nasal cannula, which is baseline * Completed IV/Po antibiotics x7 days per #1. * Continue PO diuresis for chronic CHF (5) Chronic kidney disease, stage 4 (severe): Code(s): N18.4 - Chronic kidney disease, stage 4 (severe) Status: Chronic Assessment and Plan: chronic, stable, baseline 2-3, GFR 26-30 * renal function at baseline and stable during hospital stay * continue to monitor I/Os and daily weights * avoid nephrotoxic agents (6) Combined systolic and diastolic congestive heart failure: Qualifiers: Heart failure chronicity: chronic Qualified Code(s): I50.42 - Chronic combined systolic (congestive) and diastolic (congestive) heart failure Code(s): I50.40 - Unspecified combined systolic (congestive) and diastolic (congestive) heart failure Status: Chronic Assessment and Plan: chronic, stable. Patient has combined severe systolic dysfunction with EF of 17% and grade 2 diastolic dysfunction * Cardiology was consulted and recommend continuing Bumex without further escalation * continue Bumex 2 mg daily, Coreg b.i.d., isosorbide 30 mg daily and statin * One time dose of Zaroxolyn was given 04/16/2022 based upon physical exam and CXR. * Accurate I&O and daily weights ordered. DC weight 69 kg. (7) S/P TAVR (transcatheter aortic valve replacement): Code(s): Z95.2 - Presence of prosthetic heart valve Status: Chronic
--- NOTE | 2022-04-19 08:51 | PM.DS ---
DS: Admitting Diagnosis Discharge Date 04/19/22 1123 Admitting Diagnosis COVID19 pneumonia Generalized weakness DS: Discharge Diagnosis Discharge Diagnosis (1) Pneumonia due to COVID-19 virus: Code(s): U07.1 - COVID-19; J12.82 - Pneumonia due to coronavirus disease 2019 Status: Acute Assessment and Plan: As demonstrated by CXR and also by COVID swab. Positive test date 04/12/22 at our facility. He reports testing positive 04/05/22 at home, but is unconfirmed. 04/17/22 antibiotic day 5: Cefdinir and Azithromycin orally. Stop Azithromycin after today's dose. Pt. wears 2L oxygen chronically, but was able to wean it off. He now has oxygen replaced with his persistent cough. Blood cultures negative to date. Continue supportive care- Continue MDI Albuterol Q6 hours, Robitussin DM, [facility] Sputum culture pending preliminary growth gram positive cocci and bacilli Patient did not require increased O2 needs- hold off on Remdesivir or Dexamethasone. 04/18/22 antibiotic day 6 cefdinir 300 mg by mouth daily. completed 5 days Azithromycin 04/17/22 and 7-days cephalosporins 04/19/22 (2) Generalized weakness: Code(s): R53.1 - Weakness Status: Acute Assessment and Plan: Secondary to problem #1 and chronic combined CHF EF 17% Continue diuretics per Cardiology recommendations. Repeat CXR 04/16/22 is unchanged. TSH 0.451, free T4 1.28, total T3 0.61; unclear clinical significance. Continue to monitor. B12 and folate within normal limits. Vitamin D 25-OH 31.5. Vitamin D3 supplement to keep >40 (3) Paroxysmal atrial fibrillation: Code(s): I48.0 - Paroxysmal atrial fibrillation Status: Chronic Assessment and Plan: chronic, stable, rate controlled continue Coreg and warfarin (4) Chronic respiratory failure with hypoxia, on home oxygen therapy: Code(s): J96.11 - Chronic respiratory failure with hypoxia; Z99.81 - Dependence on supplemental oxygen Status: Chronic Assessment and Plan: Chronic, stable. Patient is on 2 L home O2 chronically SpO2 96% on 2 L nasal cannula, which is baseline Completed IV/Po antibiotics x7 days per #1. Continue PO diuresis for chronic CHF (5) Chronic kidney disease, stage 4 (severe): Code(s): N18.4 - Chronic kidney disease, stage 4 (severe) Status: Chronic Assessment and Plan: chronic, stable, baseline 2-3, GFR 26-30 renal function at baseline and stable during hospital stay continue to monitor I/Os and daily weights avoid nephrotoxic agents (6) Combined systolic and diastolic congestive heart failure: Qualifiers: Heart failure chronicity: chronic Qualified Code(s): I50.42 - Chronic combined systolic (congestive) and diastolic (congestive) heart failure Code(s): I50.40 - Unspecified combined systolic (congestive) and diastolic (congestive) heart failure Status: Chronic Assessment and Plan: chronic, stable. Patient has combined severe systolic dysfunction with EF of 17% and grade 2 diastolic dysfunction Cardiology was consulted and recommend continuing Bumex without further escalation continue Bumex 2 mg daily, Coreg b.i.d., isosorbide 30 mg daily and statin One time dose of Zaroxolyn was given 04/16/2022 based upon physical exam and CXR. Accurate I&O and daily weights ordered. DC weight 69 kg. (7) S/P TAVR (transcatheter aortic valve replacement): Code(s): Z95.2 - Presence of prosthetic heart valve Status: Chronic Assessment and Plan: Continue Warfarin anticoagulation- warfarin 6 mg Friday & Friday, 3.5 mg all other days INR 2.9 (8) Chronic obstructive pulmonary disease: Qualifiers: COPD type: COPD with acute lower respiratory infection Qualified Code(s): J44.0 - Chronic obstructive pulmonary disease with (acute) lower respiratory infection Code(s): J44.9 - Chronic obstructive p
[2022-04-19] MEDS: TERAZOSIN HCL 1 MG CAPSULE 2 MG PO (10:20)
[2022-04-19] MEDS: BUMETANIDE 1 MG TABLET 2 MG PO (10:21)
[2022-04-19] MEDS: GABAPENTIN 300 MG CAPSULE PO (10:21)
[2022-04-19] MEDS: CHOLECALCIFEROL 1,000 UNITS TABLET 2000 UNITS PO (10:21)
[2022-04-19] MEDS: CEFDINIR 300 MG CAPSULE PO (10:22)
[2022-04-19] MEDS: OMEGA 3 POLYUNSAT FATTY ACIDS 1 GM CAP PO (10:23)
[2022-04-19] MEDS: CARBIDOPA/LEVODOPA 25/100 MG TABLET 1 TABLET PO (10:23)
[2022-04-19] MEDS: ISOSORBIDE MONONITRATE 30 MG TAB.ER.24H PO (10:23)
[2022-04-19] MEDS: ASCORBIC ACID 500 MG TABLET 1000 MG PO (10:23)
[2022-04-19] MEDS: FEBUXOSTAT 40 MG TABLET PO (10:25)
[2022-04-19] MEDS: carvediloL 6.25 MG TABLET PO (10:25)
[2022-04-19] MEDS: TOPIRAMATE 25 MG TABLET PO (10:26)
[2022-04-19] MEDS: amLODIPine BESYLATE 2.5 MG TABLET PO (10:34)
== END 2022-04-19 12:54 | disposition home health service (06) | DRG 177 ==
LOC: ANHED 18:12 → ANH2MED 23:43
PROVIDERS: Nurse Practitioner Adult Health; Admitting Provider Internal Medicine; Emergency Provider Emergency Medicine; PCP Internal Medicine; Visit Provider Nurse Practitioner Family
DX: U07.1 COVID-19 (principal); J12.82 Pneumonia due to coronavirus disease 2019; J96.11 Chronic respiratory failure with hypoxia; J44.0 Chronic obstructive pulmonary disease with (acute) lower respiratory infection; I13.0 Hypertensive heart and chronic kidney disease with heart failure and stage 1 through stage 4 chronic kidney disease, or unspecified chronic kidney disease; N18.4 Chronic kidney disease, stage 4 (severe); I50.42 Chronic combined systolic (congestive) and diastolic (congestive) heart failure; I42.9 Cardiomyopathy, unspecified; I27.20 Pulmonary hypertension, unspecified; D63.1 Anemia in chronic kidney disease; I07.1 Rheumatic tricuspid insufficiency; G20 Parkinson's disease; M35.3 Polymyalgia rheumatica; I48.0 Paroxysmal atrial fibrillation; I25.10 Atherosclerotic heart disease of native coronary artery without angina pectoris; E11.42 Type 2 diabetes mellitus with diabetic polyneuropathy; E11.51 Type 2 diabetes mellitus with diabetic peripheral angiopathy without gangrene; E11.22 Type 2 diabetes mellitus with diabetic chronic kidney disease; E78.5 Hyperlipidemia, unspecified; H61.21 Impacted cerumen, right ear; R42 Dizziness and giddiness; Z79.01 Long term (current) use of anticoagulants; Z79.899 Other long term (current) drug therapy; Z87.891 Personal history of nicotine dependence; Z95.0 Presence of cardiac pacemaker; Z95.2 Presence of prosthetic heart valve; Z99.81 Dependence on supplemental oxygen
CPT/HCPCS: 36415; 70450; 71045; 80048; 80053; 81001; 82306; 82607; 82746; 83735; 83880; 84439; 84443; 84480; 84484; 85025; 85027; 85055; 85610; 87040; 87070; 87086; 87205; 93005; 93306; 94640; 94667; 96361; 96365; 96366; 96367; 96375; 97110; 97161; 97165; 97530; 97535; 99285; A9270; C9803; G0378; J0456; J0696; J7030; U0003; U0005

== ENCOUNTER 2022-10-10 10:38 | Outpatient (CLI) | payer MEDICARE, OTHER, SELFPAY ==
[2022-10-10 11:19] LABS: Alanine Aminotransferase 7 U/L (6-50); Albumin Level 3.8 g/dL (3.5-5.1); Alkaline Phosphatase 140 U/L (38-126); Anion Gap 4 mmol/L (8-16); Aspartate Amino Transferase 15 U/L (17-59); Bilirubin,Total 0.8 mg/dL (0.2-1.3); Blood Urea Nitrogen 41 mg/dL (9-20); Calcium 8.7 mg/dL (8.4-10.2); Carbon Dioxide 28 mmol/L (22-30); Chloride 108 mmol/L (98-107); Cholesterol 138 mg/dL (0-200); Estimated Glomerular Filt Rate 32; Glucose 177 mg/dL (65-110); HDL Direct 40 mg/dL; Potassium 4.3 mmol/L (3.4-5.0); Sodium 140 mmol/L (137-145); Triglycerides 166 mg/dL (<150)
[2022-10-10 11:23] LABS: Basophils Percent Auto 0.7 % (0.2-1.2); Eosinophils Absolute Auto 0.1 K/mm3 (0-0.3); Eosinophils Percent Auto 2.4 % (0-4.4); Hemoglobin 12.7 g/dL (14.0-18.0); Immature Granulocyte Absolute 0.02 K/mm3 (0.00-0.031); Immature Granulocyte Percent A 0.3 % (0-0.5); Lymphocytes Absolute Auto 0.85 K/mm3 (0.9-3.2); Lymphocytes Percent Auto 14.8 % (18.3-44.2); Mean Corpuscular Hemoglobin 31.8 pg (26-34); Mean Corpuscular Volume 102.5 fl (80-100); Monocytes Absolute Auto 0.6 K/mm3 (0.1-0.6); Monocytes Percent Auto 10.1 % (2.6-8.5); Neutrophils Absolute Auto 4.1 K/mm3 (1.3-6.7); Neutrophils Percent Auto 71.7 % (45.5-73.1); Platelet Count Result 124 k/mm3 (150-375); Red Cell Distribution Width 14.1 % (11.5-14.5); White Blood Count 5.8 K/mm3 (4.5-10.0)
[2022-10-10 11:28] LABS: Iron 88 ug/dL (49-181)
[2022-10-10 11:31] LABS: LDL Cholesterol Direct 69 mg/dL
[2022-10-10 11:37] LABS: Percent Iron Saturation 27 % (20-50)
[2022-10-10 11:45] LABS: Free T4 Free Thyroxine 1.32 ng/mL (0.78-2.19)
[2022-10-10 11:50] LABS: Thyroid Stimulating Hormone 0.969 uIU/mL (0.465-4.680)
== END 2022-10-10 10:39 | disposition home or self-care (01) ==
LOC: ANHLAB 10:41
PROVIDERS: PCP Nurse Practitioner Family; Visit Provider Nurse Practitioner Family
DX: N18.9 Chronic kidney disease, unspecified (principal); D63.1 Anemia in chronic kidney disease; R53.83 Other fatigue; R79.89 Other specified abnormal findings of blood chemistry; I10 Essential (primary) hypertension; E78.5 Hyperlipidemia, unspecified
CPT/HCPCS: 36415; 80053; 80061; 83540; 83550; 84439; 84443; 85025

== ENCOUNTER 2022-10-11 13:05 | Outpatient (CLI) | payer MEDICARE, SELFPAY ==
--- NOTE | ~2022-10-11 | CT_ITS ---
Noncontrast CT scan of the lumbar spine CLINICAL HISTORY: Back pain TECHNIQUE: Axial noncontrast imaging of the lumbar spine was performed. Sagittal and coronal reformat dora images were constructed. Dose reduction technique was used on this scan by utilizing automated ex posure control and iterative reconstruction technique. The dose-length product (DLP) was 1095.76 mGy- cm. COMPARISON: 03/13/2022 FINDINGS: No fracture or subluxation of the lumbar spine seen. Osseous alignment is unchanged. Stable minimal degenerative disc changes throughout the lumbar spine. At L1-L2, there is minimal disc bulge and mild facet joint arthropathy. No spinal canal stenosis. Pro bable mild bilateral neural foraminal narrowing. At L2-L3, there is minimal disc bulge with mild facet arthropathy. Possible minimal central canal bereket nosis. There is moderate to advanced bilateral neural foraminal narrowing. At L3-L4, there is minimal disc bulge. There is mild facet arthropathy. Probable right lateral recess stenosis noted. There is mild bilateral neural foraminal narrowing. At L4-L5, there is disc bulge and facet arthropathy. There is probable moderate to possibly severe ce ntral canal stenosis. There is severe bilateral neural foraminal narrowing. At L5-S1, there is disc bulge with minimal facet arthropathy. No tiara central canal stenosis. There is mild to moderate left neural foraminal narrowing. Right neural foramen preserved. Diffuse atherosclerotic calcifications of the aorta are present. There is an irregular aneurysm of th e infrarenal abdominal aorta, probably measuring at least 5 cm in maximum transverse dimension, thoug h this is somewhat incompletely included in the [id number]. Impression: Moderate to advanced degenerative spondylosis, as detailed above. There is multilevel moderate to sev ere bilateral neural foraminal narrowing. There is multifactorial moderate to possibly severe central canal stenosis at L4-L5. Infrarenal abdominal aortic aneurysm, incompletely included in the [id number], probably measuring at least 5 cm in maximum transverse diameter. Recommend dedicated abdominal pelvic examination to mor e completely evaluate the aneurysm. Reviewed, dictated and finalized at [facility]. Impression: Moderate to advanced degenerative spondylosis, as detailed above. There is mult ilevel moderate to severe bilateral neural foraminal narrowing. There is multif actorial moderate to possibly severe central canal stenosis at L4-L5. Infrarenal abdominal aortic aneurysm, incompletely included in the utlvu-cm-wge w, probably measuring at least 5 cm in maximum transverse diameter. Recommend d edicated abdominal pelvic examination to more completely evaluate the aneurysm.
--- NOTE | ~2022-10-11 | CT_ITS ---
Non-contrast CT scan of the Pelvis Clinical indication: Back pain Technique: 2.5 mm axial scans were obtained through the pelvis without intravenous or oral contrast. Dose reduction technique was used on this scan by utilizing automated exposure control and iterative reconstruction technique. The dose-length product (DLP) was 434.84 mGy-cm. Findings: There is minimal degenerative change of both hip joints. There is also minimal degenerative changes bilateral SI joints. No acute fracture identified. Urinary bladder demonstrates possible mild wall thickening. Prostate gland is minimally prominent. Ri ght lower quadrant ostomy is present. There is parastomal hernia containing multiple bowel loops. No bowel obstruction clearly evident. Probable small amount of ascites. There is a partially imaged aneurysm of the infrarenal abdominal aorta, measuring up to at least 4.8 cm in transverse diameter maximally. There are extensive atherosclerotic calcifications of the aorta and iliac vessels. Multiple small calcified gallstones are present. Probable hepatic and bilateral renal cysts are prese nt. Impression: Infrarenal aortic aneurysm measuring at least 4.8 cm in maximum transverse diameter. Consider complet e abdominal pelvic exam to more completely assess the aneurysm, as indicated. Cholelithiasis. Mild degenerative change of the bilateral hip joints and bilateral SI joints. [facility] for degenerative changes in the lumbar spine. Right lower quadrant ostomy with peristomal hernia containing several bowel loops. Small amount of ascites. Reviewed, dictated and finalized at [facility]. Impression: Infrarenal aortic aneurysm measuring at least 4.8 cm in maximum transverse diam eter. Consider complete abdominal pelvic exam to more completely assess the ane urysm, as indicated. Cholelithiasis. Mild degenerative change of the bilateral hip joints and bilateral SI joints. P lease refer to separately reported lumbar spine CT performed concurrently for d egenerative changes in the lumbar spine. Right lower quadrant ostomy with peristomal hernia containing several bowel loo ps. Small amount of ascites.
== END 2022-10-11 13:06 | disposition home or self-care (01) ==
PROVIDERS: PCP Nurse Practitioner Family; Visit Provider Orthopaedic Surgery
DX: K80.20 Calculus of gallbladder without cholecystitis without obstruction (principal); M16.0 Bilateral primary osteoarthritis of hip; R18.8 Other ascites; M47.896 Other spondylosis, lumbar region; I71.40 Abdominal aortic aneurysm, without rupture, unspecified
CPT/HCPCS: 72131; 72192

== ENCOUNTER 2022-11-11 14:30 | Emergency (ER) | payer MEDICARE, SELFPAY ==
[2022-11-11 14:42] VITALS: BP 152/69; PULSE 64; RESP 18; TEMP 36.4; O2SAT 94
[2022-11-11 15:10] LABS: Basophils Percent Auto 0.6 % (0.2-1.2); Eosinophils Absolute Auto 0.1 K/mm3 (0-0.3); Eosinophils Percent Auto 1.7 % (0-4.4); Hematocrit 42.2 % (42.0-52.0); Hemoglobin 12.8 g/dL (14.0-18.0); Immature Granulocyte Absolute 0.02 K/mm3 (0.00-0.031); Immature Granulocyte Percent A 0.3 % (0-0.5); Immature Platelet Fraction Pct 5.1 % (0.9-11.2); Lymphocytes Absolute Auto 1.06 K/mm3 (0.9-3.2); Lymphocytes Percent Auto 16.8 % (18.3-44.2); Mean Corpuscular HGB Conc 30.3 g/dl (32-36); Mean Corpuscular Hemoglobin 32.2 pg (26-34); Mean Platelet Volume 11.3 fl (7.4-10.4); Monocytes Absolute Auto 0.7 K/mm3 (0.1-0.6); Monocytes Percent Auto 10.3 % (2.6-8.5); Neutrophils Absolute Auto 4.4 K/mm3 (1.3-6.7); Neutrophils Percent Auto 70.3 % (45.5-73.1); Platelet Count Result 133 k/mm3 (150-375); Red Blood Count 3.98 M/mm3 (4.6-6.20); Red Cell Distribution Width 14.3 % (11.5-14.5); White Blood Count 6.3 K/mm3 (4.5-10.0)
[2022-11-11 15:17] LABS: Alanine Aminotransferase 7 U/L (6-50); Albumin Level 3.9 g/dL (3.5-5.1); Alkaline Phosphatase 157 U/L (38-126); Anion Gap 7 mmol/L (8-16); Aspartate Amino Transferase 19 U/L (17-59); Blood Urea Nitrogen 37 mg/dL (9-20); Calcium 8.7 mg/dL (8.4-10.2); Carbon Dioxide 28 mmol/L (22-30); Chloride 108 mmol/L (98-107); Estimated CRCL calculation 24 ml/min; Estimated Glomerular Filt Rate 34; Glucose 120 mg/dL (65-110); Potassium 4.8 mmol/L (3.4-5.0); Sodium 143 mmol/L (137-145)
[2022-11-11 15:21] LABS: Partial Thromboplastin Time 83.9 SECONDS (22.3-36.8)
[2022-11-11 15:30] LABS: Prothrombin Time 65.7 Seconds (11.1-14.7)
[2022-11-11 15:41] LABS: INR 6.8
[2022-11-11 15:43] LABS: Platelet Estimate Adequate (Adequate); Schistocytes None Seen (NORMAL)
[2022-11-11 15:44] LABS: Anisocytosis 1+ (NORMAL); Atypical Lymphocytes Present
[2022-11-11 17:12] VITALS: BP 187/85; PULSE 68; RESP 22; TEMP 36.2; O2SAT 96
--- NOTE | 2022-11-11 17:53 | ED.GENADULT ---
HPI - General Adult General Chief complaint: Recheck/Abnormal Lab/Rx Stated complaint: abnormal labs - INR was 8.0 Time Seen by Provider: 11/11/22 17:39 Source: patient Mode of arrival: ambulatory Limitations: no limitations History of Present Illness HPI narrative: This is an 87-year-old male who presents to the ED with chief complaint of abnormal INR lab. He takes warfarin with aortic valve replacement history. 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 At home he noticed INR measures around 8.0 on 2 different occasions today. Initial lab work protocoled shows INR 6.8 here. Patient denies any episodes of hemoptysis or GI bleeding or other sources of bleeding. Denies chest pain, cough, abdominal pain, shortness of breath, headache. Last dose of warfarin was yesterday. He has an ostomy bag in place and has not noticed any dark or bloody stools. Related Data Home Medications Medication Instructions Recorded Confirmed warfarin 1 mg tablet 3.5 mg PO DAILY 12/01/21 09/03/22 pravastatin 20 mg tablet 20 mg PO DAILY 04/13/22 09/03/22 warfarin 6 mg tablet 6 mg PO 2XW 08/09/22 09/03/22 Allergies Allergy/AdvReac Type Severity Reaction Status Date / Time prednisolone Allergy Severe Loss of Verified 11/11/22 17:51 Consciousness adhesive tape Allergy Unknown Not Verified 11/11/22 17:51 Entered,Unknown atorvastatin Allergy Unknown Muscle Pain Verified 11/11/22 17:51 flecainide Allergy Unknown FACIAL Verified 11/11/22 17:51 NUMBNESS prednisone Allergy Unknown DIABETES,OSTEOPOROSIS, Verified 11/11/22 17:51 DECREASED IMMUNE SYS,Unknown Review of Systems Review of Systems: CONSTITUTIONAL: Denies fever, chills, or sweats. EYES: Denies visual changes, redness, or discharge. ENT: Denies rhinorrhea, congestion, sore throat, or otalgia. CARDIOVASCULAR: Denies chest pain, palpitations, or edema. RESPIRATORY: Denies cough or dyspnea. GASTROINTESTINAL: Denies abdominal pain, nausea, vomiting, or diarrhea. GENITOURINARY: Denies dysuria or hematuria. SKIN: Denies rash or itching. MUSCULOSKELETAL: Denies back pain, joint pain, or myalgia. NEUROLOGIC: Denies headache, numbness, dizziness, or weakness. PSYCHIATRIC: Denies anxiety or depression. [facility] Past Medical History Medical History (Updated 11/11/22 @ 18:31 by Braulio Levy PA-C) Abdominal aortic aneurysm Anemia due to stage 3 chronic kidney disease Anemia in chronic kidney disease Aortic valve stenosis, acquired Status post TAVR. Arthritis Atherosclerosis of [place] coronary artery of [place] heart Cardiomyopathy Chronic anticoagulation Chronic atrial fibrillation, unspecified Chronic kidney disease, stage 4 (severe) Baseline creatinine is around 2.90. 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 Coronary artery disease involving makah coronary artery of [place] heart COVID-19 Diabetic peripheral neuropathy Dizziness Dyslipidemia Essential tremor Generalized weakness Gout Hypertension, essential Loculated pleural effusion (07/2021) Lumbar back pain with radiculopathy affecting left lower extremity Nephrolithiasis Parapneumonic effusion (07/2021) Status post chest tube and intrapleural tPA. Paroxysmal atrial fibrillation (12/21/18) Being evaluated for possible ablation. Peripheral vascular disease of lower extremity Persistent atrial fibrillation Pneumonia due to COVID-19 virus Polymyalgia rheumatica Type 2 diabetes mellitus Ulcerative colitis Surgical History Surgical History (Updated 09/12/22 @ 10:34 by Sri Cm) History of cardiac catheterization History of cataract extraction History of colonoscopy with polypectomy History of heart artery stent
[2022-11-11 18:29] VITALS: BP 187/96; PULSE 67; RESP 18; O2SAT 100
[2022-11-11 18:54] VITALS: BP 156/96; PULSE 60; RESP 16; O2SAT 100
== END 2022-11-11 18:55 | disposition home or self-care (01) ==
PROVIDERS: Emergency Medicine; Emergency Provider Physician Assistant; PCP Family Medicine
DX: T45.511A Poisoning by anticoagulants, accidental (unintentional), initial encounter (principal); I13.0 Hypertensive heart and chronic kidney disease with heart failure and stage 1 through stage 4 chronic kidney disease, or unspecified chronic kidney disease; E11.22 Type 2 diabetes mellitus with diabetic chronic kidney disease; N18.30 Chronic kidney disease, stage 3 unspecified; I50.82 Biventricular heart failure; I25.10 Atherosclerotic heart disease of native coronary artery without angina pectoris; I48.91 Unspecified atrial fibrillation; Z79.01 Long term (current) use of anticoagulants; M19.90 Unspecified osteoarthritis, unspecified site; D64.9 Anemia, unspecified
CPT/HCPCS: 36415; 80053; 85025; 85055; 85610; 85730; 99283

== ENCOUNTER 2022-12-12 14:48 | Emergency (ER) | payer MEDICARE, SELFPAY ==
[2022-12-12] VITALS (18 sets, daily range): BP systolic 174–207; BP diastolic 77–91; PULSE 59–72; RESP 14–16; TEMP 36.7; O2SAT 94–98
--- NOTE | ~2022-12-12 | CT_ITS ---
EXAMINATION: CT cervical spine wo con DATE: 12/12/2022 15:19 INDICATION: trauma TECHNIQUE: Computed tomography (CT) of the cervical spine was performed without intravenous contrast. Automated exposure control and iterative reconstruction technique were employed. The dose-length pro duct was 393.33 mGy-cm. COMPARISON: CT soft tissue neck 07/04/2020. FINDINGS: Vertebral Body Alignment: Intact. Craniocervical and atlantoaxial alignment: Moderate degenerative change. Alignment intact. Osseous structures/fracture: No evidence of a lytic or blastic process in the visualized spine. No e vidence of acute fracture. Chronic sphenoid sinusitis. Moderate right mastoid fluid. Cervical soft tissues: The paraspinal soft tissues planes are maintained. 2 cm right thyroid nodule. Emphysematous change in the lung apices. Degenerative changes: Degenerative changes, without severe neural foraminal or central canal narrowin g. IMPRESSION: No acute fracture or traumatic malalignment in the cervical spine. Reviewed, dictated and finalized at location K.
--- NOTE | ~2022-12-12 | CT_ITS ---
EXAMINATION: CT brain wo con DATE: 12/12/2022 15:15 INDICATION: head injury . TECHNIQUE: Computed tomography (CT) of the head was performed without intravenous contrast. The mA wa s adjusted according to patient size. Iterative reconstruction technique was employed. The dose-lengt h product was 681.00 mGy-cm. COMPARISON: 04/18/2022. FINDINGS: No acute intracranial hemorrhage or extra-axial fluid collection. No hydrocephalus, mass, or herniation. No acute ischemic infarct. Unremarkable dural venous sinus attenuation. No acute osseous abnormality. Nodular mucosal thickening in the maxillary sinuses, mild mucosal thickening in the ethmoid air cells , near complete opacification of the sphenoid sinuses with likely cyst/polyps and surrounding scleros is, moderate volume right mastoid fluid with sclerosis, the remaining aerated spaces are clear. Mild atrophy and chronic white matter change. Atherosclerotic intracranial calcification. Bilateral l ens replacements. IMPRESSION: No acute intracranial process. Chronic sphenoid sinusitis. Moderate right mastoid fluid, with osseous sclerosis, correlate for clinical findings of mastoiditis. Reviewed, dictated and finalized at location K. IMPRESSION: No acute intracranial process. Chronic sphenoid sinusitis. Moderate right masto id fluid, with osseous sclerosis, correlate for clinical findings of mastoiditi s.
--- NOTE | 2022-12-12 17:45 | ED.FALL ---
HPI - Fall General Chief Complaint: Fall Stated Complaint: fall Time Seen by Provider: 12/12/22 14:51 History of Present Illness HPI Narrative: Patient is a pleasant 87-year-old male who presents ER status post fall. He was walking into a local store when he fell backwards striking his head on the ground. No loss of consciousness. He does have an abrasion to the back of his head that is bleeding. He was immobilized in a c-collar by EMS. Patient does take a blood thinner. At this time he has no change in vision or hearing. No additional concerns. However undressing patient is found that he had a laceration to his left fifth digit on the plantar aspect. He continues it is due to the blood thinning medication. There is no deformity to the toe. He reports recent injury 2 weeks ago where he had a plantar laceration as well. Related Data Home Medications Medication Instructions Recorded Confirmed warfarin 1 mg tablet 3.5 mg PO DAILY 12/01/21 11/14/22 pravastatin 20 mg tablet 20 mg PO DAILY 04/13/22 11/14/22 warfarin 6 mg tablet 6 mg PO 2XW 08/09/22 11/14/22 Allergies Allergy/AdvReac Type Severity Reaction Status Date / Time prednisolone Allergy Severe Loss of Verified 12/12/22 14:59 Consciousness adhesive tape Allergy Unknown Not Verified 12/12/22 14:59 Entered,Unknown atorvastatin Allergy Unknown Muscle Pain Verified 12/12/22 14:59 flecainide Allergy Unknown FACIAL Verified 12/12/22 14:59 NUMBNESS prednisone Allergy Unknown DIABETES,OSTEOPOROSIS, Verified 12/12/22 14:59 DECREASED IMMUNE SYS,Unknown Review of Systems Review of Systems: All systems reviewed & are unremarkable except as noted in HPI and below Constitutional: Constitutional: Denies chills and Denies fever(s) Eyes: Eyes: Denies change in vision and Denies photophobia Cardiovascular: Cardiovascular: Denies chest pain, Denies rapid heart rate and Denies radiating jaw, neck or arm pain Musculoskeletal: Comments: Toe laceration left fifth digit foot Neurologic: Denies syncope, Denies headache(s), Denies focal weakness and Denies numbness PMFSH Past Medical History Medical History Abdominal aortic aneurysm Anemia due to stage 3 chronic kidney disease Anemia in chronic kidney disease Aortic valve stenosis, acquired Status post TAVR. Arthritis Atherosclerosis of [place] coronary artery of [place] heart Cardiomyopathy Chronic anticoagulation Chronic atrial fibrillation, unspecified Chronic kidney disease, stage 4 (severe) Baseline creatinine is around 2.90. 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 Coronary artery disease involving [place] coronary artery of [place] heart COVID-19 Diabetic peripheral neuropathy Dizziness Dyslipidemia Essential tremor Generalized weakness Gout Hypertension, essential Loculated pleural effusion (07/2021) Lumbar back pain with radiculopathy affecting left lower extremity Nephrolithiasis Parapneumonic effusion (07/2021) Status post chest tube and intrapleural tPA. Paroxysmal atrial fibrillation (12/21/18) Being evaluated for possible ablation. Peripheral vascular disease of lower extremity Persistent atrial fibrillation Pneumonia due to COVID-19 virus Polymyalgia rheumatica Type 2 diabetes mellitus Ulcerative colitis Surgical History Surgical History History of cardiac catheterization History of cataract extraction History of colonoscopy with polypectomy History of heart artery stent History of incision and drainage I&D of left rectal abscess 09/05/[address] Betancur. History of partial colectomy History of transcatheter aortic valve replacement (TAVR) (04/2020) History of umbilical hernia r
== END 2022-12-12 18:35 | disposition home or self-care (01) ==
PROVIDERS: Emergency Provider Emergency Medicine; PCP Family Medicine
DX: S91.115A Laceration without foreign body of left lesser toe(s) without damage to nail, initial encounter (principal); S00.01XA Abrasion of scalp, initial encounter; E04.1 Nontoxic single thyroid nodule; E11.22 Type 2 diabetes mellitus with diabetic chronic kidney disease; I13.0 Hypertensive heart and chronic kidney disease with heart failure and stage 1 through stage 4 chronic kidney disease, or unspecified chronic kidney disease; N18.4 Chronic kidney disease, stage 4 (severe); I50.40 Unspecified combined systolic (congestive) and diastolic (congestive) heart failure; D63.1 Anemia in chronic kidney disease; I25.10 Atherosclerotic heart disease of native coronary artery without angina pectoris; I42.9 Cardiomyopathy, unspecified; I48.19 Other persistent atrial fibrillation; I73.9 Peripheral vascular disease, unspecified; J96.11 Chronic respiratory failure with hypoxia; E11.42 Type 2 diabetes mellitus with diabetic polyneuropathy; E11.51 Type 2 diabetes mellitus with diabetic peripheral angiopathy without gangrene; K51.90 Ulcerative colitis, unspecified, without complications; M19.90 Unspecified osteoarthritis, unspecified site; M35.3 Polymyalgia rheumatica; M10.9 Gout, unspecified; Z99.81 Dependence on supplemental oxygen; Z93.3 Colostomy status; Z95.0 Presence of cardiac pacemaker; Z95.2 Presence of prosthetic heart valve; Z95.5 Presence of coronary angioplasty implant and graft; Z95.1 Presence of aortocoronary bypass graft; Z86.16 Personal history of COVID-19; Z87.01 Personal history of pneumonia (recurrent); Z87.442 Personal history of urinary calculi; Z87.891 Personal history of nicotine dependence; Z98.49 Cataract extraction status, unspecified eye; Z90.49 Acquired absence of other specified parts of digestive tract; Z79.01 Long term (current) use of anticoagulants; J32.3 Chronic sphenoidal sinusitis; W18.30XA Fall on same level, unspecified, initial encounter
CPT/HCPCS: 12001; 70450; 72125; 99284

== ENCOUNTER 2022-12-13 11:30 | Emergency (ER) | payer MEDICARE, SELFPAY ==
[2022-12-13 11:47] VITALS: BP 159/77; PULSE 72; RESP 24; TEMP 36.8; O2SAT 94
--- NOTE | 2022-12-13 12:01 | ED.WOUNDLAC ---
HPI - Wound/Laceration General Chief Complaint: Wound/Laceration Stated Complaint: Left Hand Laceration Time Seen by Provider: 12/13/22 12:01 Source: patient Mode of arrival: ambulatory Limitations: no limitations History of Present Illness HPI narrative: Patient is a 87-year-old male who presents with laceration to left hand. Patient states his was falling at 10:00 a.m. last night and he went to catch her and her nail cut his hand. Patient is on blood thinners and has frequent skin tears. States it has just been oozing blood since. Has washed it and covered it with Band-Aid. Related Data Home Medications Medication Instructions Recorded Confirmed pravastatin 20 mg tablet 20 mg PO DAILY 04/13/22 12/13/22 rivaroxaban 15 mg tablet (Xarelto) 15 mg DIRECTED 12/13/22 12/13/22 Allergies Allergy/AdvReac Type Severity Reaction Status Date / Time prednisolone Allergy Severe Loss of Verified 12/12/22 14:59 Consciousness adhesive tape Allergy Unknown Not Verified 12/12/22 14:59 Entered,Unknown atorvastatin Allergy Unknown Muscle Pain Verified 12/12/22 14:59 flecainide Allergy Unknown FACIAL Verified 12/12/22 14:59 NUMBNESS prednisone Allergy Unknown DIABETES,OSTEOPOROSIS, Verified 12/12/22 14:59 DECREASED IMMUNE SYS,Unknown Review of Systems Review of Systems: All systems reviewed & are unremarkable except as noted in HPI and below Constitutional: Constitutional: Denies body ache(s), Denies chills, Denies fatigue, Denies fever(s), Denies headache(s), Denies malaise and Denies weakness Eyes: Eyes: Denies blurry vision, Denies irritation and Denies loss of vision ENT: Denies otalgia, Denies headache(s), Denies nasal discharge, Denies sinus pain and Denies sore throat Cardiovascular: Cardiovascular: Denies chest pain, Denies irregular heart rhythm and Denies dyspnea Respiratory: Respiratory: Denies dyspnea Gastrointestinal: Gastrointestinal: Denies abdominal pain, Denies melena, Denies hematochezia, Denies diarrhea, Denies nausea and Denies vomiting Musculoskeletal: Musculoskeletal: Denies back pain, Denies myalgias and Denies arthralgias Integumentary/Breasts: Skin/Breast: Denies pruritus, Denies rash, Reports wounds and Reports other Neurologic: Denies headache(s), Denies loss of vision and Denies weakness Psychiatric: Psychiatric: Reports no additional psychiatric complaints Endocrine: Endocrine: Denies fatigue PMFSH Past Medical History Medical History Abdominal aortic aneurysm Anemia due to stage 3 chronic kidney disease Anemia in chronic kidney disease Aortic valve stenosis, acquired Status post TAVR. Arthritis Atherosclerosis of [place] coronary artery of [place] heart Cardiomyopathy Chronic anticoagulation Chronic atrial fibrillation, unspecified Chronic kidney disease, stage 4 (severe) Baseline creatinine is around 2.90. 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 Coronary artery disease involving [place] coronary artery of [place] heart COVID-19 Diabetic peripheral neuropathy Dizziness Dyslipidemia Essential tremor Generalized weakness Gout Hypertension, essential Loculated pleural effusion (07/2021) Lumbar back pain with radiculopathy affecting left lower extremity Nephrolithiasis Parapneumonic effusion (07/2021) Status post chest tube and intrapleural tPA. Paroxysmal atrial fibrillation (12/21/18) Being evaluated for possible ablation. Peripheral vascular disease of lower extremity Persistent atrial fibrillation Pneumonia due to COVID-19 virus Polymyalgia rheumatica Type 2 diabetes mellitus Ulcerative colitis Surgical History Surgical History History of cardiac cath
== END 2022-12-13 12:27 | disposition home or self-care (01) ==
PROVIDERS: Emergency Provider Nurse Practitioner Family; PCP Family Medicine
DX: S61.412A Laceration without foreign body of left hand, initial encounter (principal); W45.8XXA Other foreign body or object entering through skin, initial encounter; Z87.891 Personal history of nicotine dependence; I13.0 Hypertensive heart and chronic kidney disease with heart failure and stage 1 through stage 4 chronic kidney disease, or unspecified chronic kidney disease; E11.22 Type 2 diabetes mellitus with diabetic chronic kidney disease; N18.4 Chronic kidney disease, stage 4 (severe); I50.40 Unspecified combined systolic (congestive) and diastolic (congestive) heart failure; D63.1 Anemia in chronic kidney disease; I25.10 Atherosclerotic heart disease of native coronary artery without angina pectoris; M19.90 Unspecified osteoarthritis, unspecified site; I48.20 Chronic atrial fibrillation, unspecified; E11.42 Type 2 diabetes mellitus with diabetic polyneuropathy; E78.5 Hyperlipidemia, unspecified; M10.9 Gout, unspecified; Z99.81 Dependence on supplemental oxygen; Z95.5 Presence of coronary angioplasty implant and graft; Z95.0 Presence of cardiac pacemaker; Z95.820 Peripheral vascular angioplasty status with implants and grafts
CPT/HCPCS: 99213; G0463

== ENCOUNTER 2022-12-27 15:28 | Outpatient (CLI) | payer MEDICARE, SELFPAY ==
--- NOTE | ~2022-12-27 | CT_ITS ---
EXAMINATION: CT soft tissue neck chest wo DATE: 12/27/2022 15:47 INDICATION: Localized swelling, mass and lump, neck. TECHNIQUE: Computed tomography (CT) of the neck and chest was performed without intravenous contrast. Automated exposure control and iterative reconstruction technique were employed. The dose-length pro duct was 843.98 mGy-cm. COMPARISON: Chest CT 08/10/2021, neck CT 07/04/20, 05/12/20, CT abdomen and pelvis 12/01/21 FINDINGS: CT NECK: There are likely changes of ocular lens replacement surgeries. There is a 3.7 x 1.3 cm mass in left parotid gland. There is a sialolith in left parotid gland. There are no pathologically enlarg ed lymph nodes. The thyroid is enlarged and heterogeneous. There is mucosal thickening in the paranas al sinuses including near complete opacification of sphenoid sinus. There is sclerosis of the k[place] o f sphenoid sinus, consistent with chronic sinusitis. The mastoid air cells are normal. There is multi focal dental disease. There is mild cervical spondylosis. CT CHEST: There is moderate emphysema. A calcified right lung nodule is consistent with old granuloma tous disease. There are chronic peripheral airspace opacities in the lower lobes, consistent with rou nded atelectasis. There is a small right pleural effusion. Left-sided pleural thickening is noted. Ca rdiomegaly is noted. There are changes of aortic valve replacement. There is calcified atherosclerosi s of the aorta and many of the other arteries. There are coronary artery calcifications. There is a l eft chest wall pacer with leads in the right atrium and right ventricle. Calcifications in the spleen are consistent with old granulomatous disease. There are cysts in the liver measuring up to 4.1 cm. There is a small volume of perihepatic ascites. There is a 15 mm chronic hemorrhagic cyst in right ki dney. There are cysts in right kidney measuring up to 12 mm. There are bridging endplate osteophytes at multiple levels in the spine, consistent with diffuse idiopathic skeletal hyperostosis (DISH). IMPRESSION: 1. 3.7 x 1.3 cm mass in left parotid gland, decreased from 6.0 x 2.7 cm on 07/04/2020. The differentia l diagnosis includes chronic hematoma and less likely [place] tumor or benign mixed tumor. 2. Small right pleural effusion. 3. Moderate emphysema. Reviewed, dictated and finalized at location A. IMPRESSION: 1. 3.7 x 1.3 cm mass in left parotid gland, decreased from 6.0 x 2.7 cm on 07/04. The differential diagnosis includes chronic hematoma and less likely [place] tumor or benign mixed tumor. 2. Small right pleural effusion. 3. Moderate emphysema.
--- NOTE | ~2022-12-27 | US_ITS ---
EXAMINATION: US thyroid DATE: 12/27/2022 16:03 INDICATION: Nontoxic single thyroid nodule. TECHNIQUE: Multiple ultrasound images of the thyroid were obtained. COMPARISON: None. FINDINGS: The right thyroid lobe measures 4.6 x 1.8 x 2.4 cm. The left thyroid lobe measures 5.9 x 2.0 x 2.4 c m. The thyroid demonstrates heterogeneous echogenicity. Vascularity is increased. In the right thyro id lobe, there is a 9 mm predominantly solid, hypoechoic, wider than tall nodule with smooth margin w ithout echogenic foci (TR4). IMPRESSION: 1. 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 2. Small thyroid nodule, likely not clinically significant. No follow-up is needed. Reviewed, dictated and finalized at location A. IMPRESSION: 1. 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 2. Small thyroid nodule, likely not clinically significant. No follow-up is nee ded.
== END 2022-12-27 15:29 | disposition home or self-care (01) ==
PROVIDERS: PCP Nurse Practitioner Family; Visit Provider Nurse Practitioner Family
DX: R22.1 Localized swelling, mass and lump, neck (principal); E04.1 Nontoxic single thyroid nodule; J43.9 Emphysema, unspecified; J90 Pleural effusion, not elsewhere classified
CPT/HCPCS: 70490; 71250; 76536

== ENCOUNTER 2023-02-04 05:50 | Day surgery (SDC) | payer MEDICARE, SELFPAY ==
[2023-01-31 10:14] VITALS: BMI 25.9
--- NOTE | ~2023-02-04 | XR_ITS ---
EXAMINATION: XR fluoroscopy no charge DATE: 02/04/2023 7:15 CDT INDICATION: LEFT L4-5,L5-S1 TRANSFORAMINAL EPIDURAL STEROID INJ . TECHNIQUE: 3 fluoroscopic images and 3 cm clips consisting of 14, 16, and 16 images of the lumbar spi ne were obtained during left L4-5 and L5-S1 transforaminal epidural steroid injection performed by th e surgeon. I was not present in the operating room. Fluoroscopy exposure time was 15.5 seconds. Air K lucien 8.50 mGy. COMPARISON: None FINDINGS: Injection needles and contrast injection at L4-5 L5-S1. IMPRESSION: Fluoroscopic documentation of left L4-5 and L5-S1 transforaminal epidural steroid injection. Please r efer to the operative note for complete procedural details . Reviewed, dictated and finalized at location K. IMPRESSION: Fluoroscopic documentation of left L4-5 and L5-S1 transforaminal epidural stero id injection. Please refer to the operative note for complete procedural detail s .
[2023-02-04 06:30] VITALS: BP 174/83; PULSE 61; RESP 18; TEMP 36.3; O2SAT 100
--- NOTE | 2023-02-04 06:53 | WPDHPUPDATE1 ---
History and Physical Update Update Date/Time: 02/04/23 06:53 History and Physical has been reviewed, including an updated exam of the patient. There are NO changes in the patient's condition. Risks, benefits, and alternatives have been discussed and questions answered. Patient agrees to proceed with procedure.
[2023-02-04 07:40] VITALS: BP 197/85; PULSE 61; RESP 16; O2SAT 97
[2023-02-04] MEDS: LIDOCAINE HCL 1% PF INJ 5 ML VIAL XX (07:42)
[2023-02-04 07:45] VITALS: BP 195/118; PULSE 60; RESP 16; O2SAT 97
[2023-02-04] MEDS: LIDOCAINE HCL 2% PF INJ 5 ML VIAL INFILTRATE (07:48)
[2023-02-04 07:50] VITALS: BP 185/70; PULSE 60; RESP 16; O2SAT 98
--- NOTE | 2023-02-04 07:50 | W.PM.PROC2 ---
Procedure Note - Detailed Date of Procedure 02/04/23 Pre-op Diagnosis Lumbosacral Radiculopathy, Lumbar Spinal Stenosis Post-op Diagnosis Same Procedure Performed Left L4-5, L5-S1 transforaminal epidural steroid injection with fluoroscopy and contrast control. Surgeon Neville Monte MD Anesthesia Local Indications Left lumbosacral radiculopathy, Left leg pain Description of Procedure INFORMED CONSENT: Risks, benefits and alternatives to the procedure were discussed in detail with the patient who expressed explicit understanding and consent to proceed. Patient was informed verbally and in written form regarding the risks associated with the procedure including the low risk of serious infection, bleeding/bruising, allergic reaction, nerve or organ injury, paralysis, procedural site pain or discomfort, worsening pain and/or mobility, failure to treat and/or disfigurement. The patient expressed explicit understanding and consent to proceed. All materials required for the procedure were available prior to procedure start. Site and side was marked prior to procedure and confirmed in the presence of the patient. PROCEDURE IN DETAIL: The patient was brought to the procedural suite and placed in the prone position. Patient was made comfortable with use of pillows under the head/chest, hips and ankles. Skin overlying the injection site was prepared broadly with ChloraPrep applicator and draped in a sterile manner. Aseptic technique was employed throughout. The endplates of the vertebral body at the site of interest were aligned in the AP view. Ipsilateral oblique angulation was utilized to better visualize the neuroforamen of interest. Local anesthesia was established by infiltration with approximately 5 mL of 2% lidocaine via a 1-1/2 inch 27-gauge needle. A 22-gauge 3.5 inch Tarun (pencil point) spinal needle was advanced until the needle approached the 6 o'clock position on the pedicle just superior to the exiting nerve root. on the left at L4-5. Lateral view was utilized to confirm appropriate position of the needle tip within the superior and posterior portion of the respective foramen. In an AP view, 1 mL of Onmipaque 300 contrast medium was injected after negative aspiration for CSF, blood or other bodily fluid, showing appropriate neurogram without evidence of intravascular or intrathecal spread of contrast. Digital subtraction imaging was used with an additional 1ml of the same contrast medium to confirm absence of intravascular contrast spread. A 1mL solution containing 5 mg of dexamethasone was injected after negative repeat aspiration. Appropriate spread of the injectate was confirmed with washout of previously injected contrast. No parasthesias were elicited. Needle was removed completely intact without difficulty. The same exact procedure was repeated for all remaining levels on the ipsilateral side, left L5-S1 neuroforamen, modified as necessary to accommodate for the new target location with identical findings and results and no evidence of complication. Images were saved and documented in the patient chart. Patient's skin was cleaned and sterile bandage applied. The patient tolerated the procedure well. The patient was transported to the recovery area in stable condition where they were observed for an appropriate amount of time prior to discharge, without evidence of complication. The patient was instructed to avoid excessive activity for the next 48 hours, including climbing and frequent use of stairs. Showers only for 48 hours. They were instructed not to drive or operate heavy machinery for 24 hours. They are to monitor for severe headaches, fevers, chills, night sweats, erythema/swelling at the site or any other signs of infection, bleeding/bruising, bowel or bladder changes as well as new pain, weakness or numbness in the upper or lower extremity. Should they notice these changes, they are instructed to call our office immediately or report directly to t
[2023-02-04 07:53] VITALS: BP 181/79; PULSE 63; RESP 18; O2SAT 97
--- NOTE | 2023-02-04 08:17 | SUR.PHASEII ---
Pt BP in recovery 181/79. Pt pre-op BP 174/83. Pt denies any PARRA, blurry vision, chest pain, SOB and states is asymptomatic. Dr. Monte aware of Pt's BP, states no new orders at this time and okay for Pt to be D/C. Pt wheeled out of department in no apparent distress, A&Ox4, pt states will follow up with PCP for BP control.
== END 2023-02-04 08:20 | disposition home or self-care (01) ==
PROVIDERS: PCP Family Medicine; Visit Provider Anesthesiology Pain Medicine
PROC: (CPT 64483; principal; 2023-02-04 07:30)
DX: M54.17 Radiculopathy, lumbosacral region (principal); M48.061 Spinal stenosis, lumbar region without neurogenic claudication
CPT/HCPCS: 64483; 64484; 99199

== ENCOUNTER 2023-03-21 14:48 | Emergency (ER) | payer MEDICARE, SELFPAY ==
--- NOTE | ~2023-03-21 | CT_ITS ---
EXAMINATION: CT brain wo con DATE: 03/21/2023 16:47 INDICATION: Fall. Small abrasion to the top and back of his head Patient on blood thinner. TECHNIQUE: Computed tomography (CT) of the head was performed without intravenous contrast. The mA wa s adjusted according to patient size. Iterative reconstruction technique was employed. Exam dose: 60 5.33 mGy-cm total exam DLP. COMPARISON: 12/12/2022 CT brain FINDINGS: Prominent bilateral vertebral artery, basilar artery and bilateral carotid siphon internal carotid artery calcifications. There is nonspecific diminished attenuation of the cerebral white matter, likely due to chronic small vessel ischemic changes. No intracranial mass lesion or hemorrhage or recent cerebrovascular accident is detected. No midline shift or mass effect. There is moderate central and cortical cerebral and cerebellar volume loss consistent with patient ag e .No subdural or epidural hematoma is detected. There is nearly complete opacification of both sphenoid sinuses and mild mucoperiosteal thickening of the maxillary sinuses. The frontal sinuses and ethmoid air cells are unremarkable. Partial opacification of the right mastoid air cells. Left mastoid air cells are normally developed a nd aerated. Middle and inner ear apparatus appear unremarkable bilaterally. No fracture or bone destruction of the cranial vault is detected. IMPRESSION: Very prominent calcified atherosclerosis of the vertebral, basilar and bilateral carotid siphon internal carotid arteries Nonspecific diminished attenuation cerebral white matter, likely due to chronic small vessel ischemic changes No acute intracranial finding Partial opacification right mastoid air cells Nearly complete opacification of bilateral sphenoid sinuses and mild mucoperiosteal thickening of the maxillary sinuses Reviewed, dictated and finalized at [facility]. Reviewed, dictated and finalized at [facility]. IMPRESSION: Very prominent calcified atherosclerosis of the vertebral, basilar and bilateral carotid siphon internal carotid arteries Nonspecific diminished attenuation cerebral white matter, likely due to chronic small vessel ischemic changes No acute intracranial finding Partial opacification right mastoid air cells Nearly complete opacification of bilateral sphenoid sinuses and mild mucoperios teal thickening of the maxillary sinuses
[2023-03-21 14:49] VITALS: BP 151/56; PULSE 63; RESP 17; TEMP 36.6; O2SAT 93
--- NOTE | 2023-03-21 16:33 | ED.FALL ---
HPI - Fall General Chief Complaint: Fall Stated Complaint: Fall Time Seen by Provider: 03/21/23 16:17 History of Present Illness HPI Narrative: Patient is an 87-year-old male who presents to the emergency department this afternoon via EMS secondary to a witnessed fall. Patient was out with his running errands and while they were in a community center patient states that he was trying to get into a chair and accidentally slid off as the chair did not have any arm rests. This incident was witnessed by his who confirms that this was a mechanical fall. EMS was called by bystanders and patient was brought to our facility for further evaluation. Patient denies any dizziness, lightheadedness or syncope prior to fall. He admits that he is currently on blood thinners, Xarelto for a history of atrial fib. Patient is denying any symptoms including headaches, lightheadedness, dizziness, blurry vision, focal weakness, numbness and or tingling. Patient did sustain a small abrasions to the back of the head secondary to fall. Tetanus is up-to-date. Patient denies any chest pain, shortness of breath, nausea, vomiting, abdominal pain, dysuria, hematuria, constipation, diarrhea, melena, hematochezia, fevers or chills. There are no other modifying, alleviating, or precipitating factors at this time. Related Data Home Medications Medication Instructions Recorded Confirmed pravastatin 20 mg tablet 20 mg PO DAILY 04/13/22 01/31/23 rivaroxaban 15 mg tablet (Xarelto) 15 mg DIRECTED 12/13/22 02/04/23 vit 1 cap PO DAILY 12/27/22 02/04/23 C,E,zinc,St-gnogg-6-lutein-zeaxanthin 250 mg-2.5 mg-0.5 mg capsule mv-mn-folic 200 mcg-vit K 15 cap PO 02/06/23 mcg-lutein 5 mg-zeaxanthin 1 mg capsule (PreserVision AREDS 2 Plus Multivit) Allergies Allergy/AdvReac Type Severity Reaction Status Date / Time prednisolone Allergy Severe Loss of Verified 03/21/23 15:01 Consciousness adhesive tape Allergy Unknown Not Verified 03/21/23 15:01 Entered,Unknown atorvastatin Allergy Unknown Muscle Pain Verified 03/21/23 15:01 flecainide Allergy Unknown FACIAL Verified 03/21/23 15:01 NUMBNESS prednisone Allergy Unknown DIABETES,OSTEOPOROSIS, Verified 03/21/23 15:01 DECREASED IMMUNE SYS,Unknown Review of Systems Review of Systems: All systems are reviewed and are negative unless stated otherwise in the HPI. FOR[facility] Past Medical History Medical History Abdominal aortic aneurysm Anemia due to stage 3 chronic kidney disease Anemia in chronic kidney disease Aortic valve stenosis, acquired Status post TAVR. Arthritis Atherosclerosis of [place] coronary artery of [place] heart Cardiomyopathy Chronic anticoagulation Chronic atrial fibrillation, unspecified Chronic kidney disease, stage 4 (severe) Baseline creatinine is around 2.90. 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 Coronary artery disease involving [place] coronary artery of [place] heart COVID-19 Diabetic peripheral neuropathy Dizziness Dyslipidemia Essential tremor Generalized weakness Gout Hypertension, essential Loculated pleural effusion (07/2021) Lumbar back pain with radiculopathy affecting left lower extremity Nephrolithiasis Parapneumonic effusion (07/2021) Status post chest tube and intrapleural tPA. Paroxysmal atrial fibrillation (12/21/18) Being evaluated for possible ablation. Peripheral vascular disease of lower extremity Persistent atrial fibrillation Pneumonia due to COVID-19 virus Polymyalgia rheumatica Type 2 diabetes mellitus Ulcerative colitis Surgical History Surgical History History of cardiac catheterization History of cataract extract
--- NOTE | 2023-03-21 16:42 | PC.NURSE ---
Pt to CT scan via stretcher at this time.
[2023-03-21 16:56] VITALS: BP 165/78; PULSE 68; RESP 15; O2SAT 93
== END 2023-03-21 17:43 | disposition home or self-care (01) ==
PROVIDERS: Emergency Provider Emergency Medicine; PCP Family Medicine
DX: S00.01XA Abrasion of scalp, initial encounter (principal); I48.19 Other persistent atrial fibrillation; E11.22 Type 2 diabetes mellitus with diabetic chronic kidney disease; I13.0 Hypertensive heart and chronic kidney disease with heart failure and stage 1 through stage 4 chronic kidney disease, or unspecified chronic kidney disease; N18.4 Chronic kidney disease, stage 4 (severe); I50.40 Unspecified combined systolic (congestive) and diastolic (congestive) heart failure; D63.1 Anemia in chronic kidney disease; E11.42 Type 2 diabetes mellitus with diabetic polyneuropathy; E11.51 Type 2 diabetes mellitus with diabetic peripheral angiopathy without gangrene; I73.9 Peripheral vascular disease, unspecified; I35.0 Nonrheumatic aortic (valve) stenosis; I25.10 Atherosclerotic heart disease of native coronary artery without angina pectoris; I42.9 Cardiomyopathy, unspecified; J96.11 Chronic respiratory failure with hypoxia; E78.5 Hyperlipidemia, unspecified; K51.90 Ulcerative colitis, unspecified, without complications; M19.90 Unspecified osteoarthritis, unspecified site; M10.9 Gout, unspecified; Z99.81 Dependence on supplemental oxygen; Z95.0 Presence of cardiac pacemaker; Z95.5 Presence of coronary angioplasty implant and graft; Z95.2 Presence of prosthetic heart valve; Z86.16 Personal history of COVID-19; Z87.01 Personal history of pneumonia (recurrent); Z87.442 Personal history of urinary calculi; Z87.891 Personal history of nicotine dependence; Z98.49 Cataract extraction status, unspecified eye; Z90.49 Acquired absence of other specified parts of digestive tract; Z79.01 Long term (current) use of anticoagulants; I67.2 Cerebral atherosclerosis; I65.23 Occlusion and stenosis of bilateral carotid arteries; W07.XXXA Fall from chair, initial encounter
CPT/HCPCS: 70450; 99284

== ENCOUNTER 2023-03-25 12:21 | Outpatient (CLI) | payer MEDICARE, SELFPAY ==
[2023-03-25 13:36] LABS: Basophils Percent Auto 0.5 % (0.2-1.2); Eosinophils Absolute Auto 0.1 K/mm3 (0-0.3); Eosinophils Percent Auto 1.8 % (0-4.4); Hematocrit 40.1 % (42.0-52.0); Hemoglobin 12.3 g/dL (14.0-18.0); Immature Granulocyte Absolute 0.03 K/mm3 (0.00-0.031); Immature Granulocyte Percent A 0.5 % (0-0.5); Lymphocytes Percent Auto 14.8 % (18.3-44.2); Mean Corpuscular HGB Conc 30.7 g/dl (32-36); Mean Corpuscular Hemoglobin 32.7 pg (26-34); Mean Corpuscular Volume 106.6 fl (80-100); Mean Platelet Volume 11.3 fl (7.4-10.4); Monocytes Absolute Auto 0.5 K/mm3 (0.1-0.6); Monocytes Percent Auto 8.6 % (2.6-8.5); Neutrophils Absolute Auto 4.5 K/mm3 (1.3-6.7); Neutrophils Percent Auto 73.8 % (45.5-73.1); Platelet Count Result 154 k/mm3 (150-375); Red Blood Count 3.76 M/mm3 (4.6-6.20); Red Cell Distribution Width 13.6 % (11.5-14.5); White Blood Count 6.1 K/mm3 (4.5-10.0)
[2023-03-25 13:47] LABS: Alanine Aminotransferase 6 U/L (6-50); Albumin Level 3.5 g/dL (3.5-5.1); Alkaline Phosphatase 150 U/L (38-126); Anion Gap 6 mmol/L (8-16); Aspartate Amino Transferase 17 U/L (17-59); Bilirubin,Total 0.5 mg/dL (0.2-1.3); Blood Urea Nitrogen 39 mg/dL (9-20); Calcium 8.8 mg/dL (8.4-10.2); Carbon Dioxide 26 mmol/L (22-30); Chloride 109 mmol/L (98-107); Cholesterol 117 mg/dL (0-200); Estimated Glomerular Filt Rate 34; Glucose 148 mg/dL (65-110); HDL Direct 39 mg/dL; Potassium 4.9 mmol/L (3.4-5.0); Sodium 141 mmol/L (137-145); Triglycerides 135 mg/dL (<150)
[2023-03-25 13:57] LABS: LDL Cholesterol Direct 65 mg/dL
[2023-03-25 14:05] LABS: Hemoglobin A1C 7.3 % (<5.7)
[2023-03-25 14:21] LABS: Platelet Estimate Adequate (Adequate); Poikilocytosis 1+ (NORMAL); Schistocytes None Seen (NORMAL)
[2023-03-25 14:27] LABS: Vitamin D 25 Hydroxy 57.2 ng/mL
[2023-03-25 15:36] LABS: Creatinine Urine 147.7 mg/dL
[2023-03-25 16:48] LABS: Microalbumin Urine Random > 1140.0 mg/L (0-16.7)
== END 2023-03-25 12:22 | disposition home or self-care (01) ==
PROVIDERS: PCP Family Medicine; Visit Provider Nurse Practitioner Family
DX: E11.9 Type 2 diabetes mellitus without complications (principal); E55.9 Vitamin D deficiency, unspecified; D63.1 Anemia in chronic kidney disease; E78.5 Hyperlipidemia, unspecified; I50.40 Unspecified combined systolic (congestive) and diastolic (congestive) heart failure; I12.9 Hypertensive chronic kidney disease with stage 1 through stage 4 chronic kidney disease, or unspecified chronic kidney disease; N18.9 Chronic kidney disease, unspecified
CPT/HCPCS: 36415; 80053; 80061; 82043; 82306; 83036; 85025

== ENCOUNTER 2023-06-05 13:11 | Inpatient (IN) | payer MEDICARE, MEDICAID, SELFPAY ==
[2023-06-05] VITALS (17 sets, daily range): BP systolic 174–244; BP diastolic 52–126; PULSE 60–97; RESP 15–25; TEMP 35.8–37.1; O2SAT 92–98
--- NOTE | ~2023-06-05 | XR_ITS ---
EXAMINATION: XR chest 2V DATE: 06/05/2023 13:40 INDICATION: Shortness of breath TECHNIQUE: PA and lateral views of the chest are obtained. COMPARISON: 04/16/2022 FINDINGS: There are patchy opacities of the lung bases and left midlung zone. There are small pleural effusions. No pneumothorax is identified. Cardiomegaly is noted. There are changes of endoluminal ao rtic valve replacement. A triple lead cardiac pacemaker of the left chest wall ends with leads in exp ected locations. There is moderate thoracic spondylosis. Surgical clips project over the right lung apex. IMPRESSION: 1. Patchy opacities of the lung bases and left midlung zone, consistent with atelectasis versus pneum onia. 2. Small pleural effusions. 3. Cardiomegaly. Reviewed, dictated and finalized at [facility]. ORT OPERATIONS SPECIALIST IMPRESSION: 1. Patchy opacities of the lung bases and left midlung zone, consistent with at electasis versus pneumonia. 2. Small pleural effusions. 3. Cardiomegaly.
--- NOTE | ~2023-06-05 | XR_ITS ---
XR chest 2V 06/07/2023 10:23 Indication: Cough. Pneumonia. Procedure: AP and lateral views of the chest Comparison: Comparison to multiple prior studies sequentially, with oldest reviewed study dated 03/24. Findings: Cardiomegaly. There is a stent of the aortic valve. There is infiltrates of the mid and low er lungs. Small pleural effusions. The lungs are hyperinflated which is consistent with, but not diag nostic of chronic obstructive pulmonary disease. Pacemaker leads are stable. Impression: 1: Persistent bibasilar airspace disease which may represent edema or pneumonia. 2: Stable small effusions. Reviewed, dictated and finalized at [facility]. PROCESSING EQUIPMENT REPAIRER Impression: 1: Persistent bibasilar airspace disease which may represent edema or pneumonia . 2: Stable small effusions.
--- NOTE | 2023-06-05 13:19 | ECG_ITS ---
Measurements Intervals [place] Rate: 60 P: [place]: 0 QRS: -87 QRSD: 140 T: 114 QT: 470 QTc: 472 Interpretive Statements ELECTRONIC VENTRICULAR PACEMAKER ATYPICAL ECG COMPARED TO ECG 04/12/2022 20:55:38 NO SIGNIFICANT CHANGES Electronically Signed On 06-05-2023 14:09:21 LIGHT INDUSTRIAL by Jovany Mayorga M.D.
--- NOTE | 2023-06-05 13:29 | ED.SOB ---
HPI - SOB/Dyspnea General Chief Complaint: Shortness of Breath/Dyspnea Stated Complaint: shortness of breathe Time Seen by Provider: 06/05/23 13:28 History of Present Illness HPI Narrative: Patient is an 88-year-old male with history of COPD, CHF, pacemaker placement here with shortness of breath. Patient notes he has had increased cough over the last 4-5 days. Cough is productive of clear sputum. He notes that he has had some increased work of breathing over the last 2 days which is worse with with any exertion. Patient has been checking his O2 sats at home which have been dropping to the low 80s with any ambulation on his 2L of oxygen and improve at rest to the 90s. Today he increased his home O2 to 3L. He does not use daily inhalers, today he found an old albuterol inhaler which he used a couple of times without much help. No fever or chills. No sick contacts. No associated chest pain or diaphoresis. He does note history of CHF, has noted a bit of increased leg swelling, takes lasix every 3-4 days as needed at baseline, took a dose today with increased urinary output since. Related Data Home Medications Medication Instructions Recorded Confirmed pravastatin 20 mg tablet 20 mg PO DAILY 04/13/22 05/05/23 mv-mn-folic 200 mcg-vit K 15 cap PO BID 04/30/23 05/05/23 mcg-lutein 5 mg-zeaxanthin 1 mg capsule (PreserVision AREDS 2 Plus Multivit) rivaroxaban 15 mg tablet (Xarelto) 15 mg PO DAILY 04/30/23 05/05/23 Allergies Allergy/AdvReac Type Severity Reaction Status Date / Time prednisolone Allergy Severe Loss of Verified 04/30/23 14:36 Consciousness adhesive tape Allergy Unknown Not Verified 04/30/23 14:36 Entered,Unknown atorvastatin Allergy Unknown Muscle Pain Verified 04/30/23 14:36 flecainide Allergy Unknown FACIAL Verified 04/30/23 14:36 NUMBNESS prednisone Allergy Unknown DIABETES,OSTEOPOROSIS, Verified 04/30/23 14:36 DECREASED IMMUNE SYS,Unknown Review of Systems Review of Systems: All systems reviewed & are unremarkable except as noted in HPI and below PMFSH Past Medical History Medical History Abdominal aortic aneurysm Anemia due to stage 3 chronic kidney disease Anemia in chronic kidney disease Aortic valve stenosis, acquired Status post TAVR. Arthritis Atherosclerosis of [place] coronary artery of [place] heart Cardiomyopathy Chronic anticoagulation Chronic atrial fibrillation, unspecified Chronic kidney disease, stage 4 (severe) Baseline creatinine is around 2.90. 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 Coronary artery disease involving [place] coronary artery of [place] heart COVID-19 Diabetic peripheral neuropathy Dizziness Dyslipidemia Essential tremor Generalized weakness Gout Hypertension, essential Loculated pleural effusion (07/2021) Lumbar back pain with radiculopathy affecting left lower extremity Nephrolithiasis Parapneumonic effusion (07/2021) Status post chest tube and intrapleural tPA. Paroxysmal atrial fibrillation (12/21/18) Being evaluated for possible ablation. Peripheral vascular disease of lower extremity Persistent atrial fibrillation Pneumonia due to COVID-19 virus Polymyalgia rheumatica Type 2 diabetes mellitus Ulcerative colitis Surgical History Surgical History History of cardiac catheterization History of cataract extraction History of colonoscopy with polypectomy History of heart artery stent History of incision and drainage I&D of left rectal abscess 09/05/[address] Betancur. History of partial colectomy History of transcatheter aortic valve replacement (TAVR) (04/2020) History of umbilical hernia repair History of vascular surgery Multiple low
[2023-06-05 13:34] LABS: Basophils Percent Auto 0.5 % (0.2-1.2); Eosinophils Absolute Auto 0.1 K/mm3 (0-0.3); Hematocrit 43.9 % (42.0-52.0); Hemoglobin 12.8 g/dL (14.0-18.0); Immature Granulocyte Absolute 0.04 K/mm3 (0.00-0.031); Immature Granulocyte Percent A 0.5 % (0-0.5); Lymphocytes Absolute Auto 0.62 K/mm3 (0.9-3.2); Lymphocytes Percent Auto 7.5 % (18.3-44.2); Mean Corpuscular HGB Conc 29.2 g/dl (32-36); Mean Corpuscular Hemoglobin 32.1 pg (26-34); Mean Platelet Volume 11.2 fl (7.4-10.4); Monocytes Absolute Auto 0.7 K/mm3 (0.1-0.6); Monocytes Percent Auto 7.8 % (2.6-8.5); Neutrophils Absolute Auto 6.9 K/mm3 (1.3-6.7); Neutrophils Percent Auto 82.7 % (45.5-73.1); Platelet Count Result 109 k/mm3 (150-375); Red Blood Count 3.99 M/mm3 (4.6-6.20); Red Cell Distribution Width 15.1 % (11.5-14.5); White Blood Count 8.3 K/mm3 (4.5-10.0)
[2023-06-05 13:49] LABS: Alanine Aminotransferase 7 U/L (6-50); Albumin Level 3.7 g/dL (3.5-5.1); Alkaline Phosphatase 148 U/L (38-126); Anion Gap 5 mmol/L (8-16); Aspartate Amino Transferase 17 U/L (17-59); Bilirubin,Total 0.7 mg/dL (0.2-1.3); Blood Urea Nitrogen 35 mg/dL (9-20); Carbon Dioxide 25 mmol/L (22-30); Chloride 112 mmol/L (98-107); Estimated CRCL calculation 28 ml/min; Estimated Glomerular Filt Rate 41; Glucose 237 mg/dL (65-110); Potassium 4.7 mmol/L (3.4-5.0); Sodium 142 mmol/L (137-145)
[2023-06-05 13:57] LABS: Schistocytes None Seen (NORMAL)
[2023-06-05 14:04] LABS: INR 1.4; Prothrombin Time 17.8 Seconds (11.1-14.7)
[2023-06-05 14:05] LABS: Partial Thromboplastin Time 33.7 SECONDS (22.3-36.8)
[2023-06-05 14:15] LABS: NT Pro B Type Natriuretic Pept 7290 pg/mL (19.9-100); Troponin I 0.027 ng/mL (0.000-0.034)
[2023-06-05] MEDS: IPRATROPIUM BR 0.02% INH SOLN 0.5 MG/2.5 ML VIAL INHALATION ×3 (14:18→14:55)
[2023-06-05] MEDS: ALBUTEROL SULFATE NEB 2.5 MG/3 ML INH INHALATION ×3 (14:19→14:55)
[2023-06-05 14:31] LABS: Influenza A QL RT-PCR Negative (Negative); Influenza B QL RT-PCR Negative (Negative); RSV RNA, RT-PCR Negative (Negative); SARS-CoV-2 RNA PCR Negative (Negative)
[2023-06-05] MEDS: hydrALAZINE HCL 20 MG/ML VIAL 10 MG IV PUSH ×2 (16:28→21:55)
[2023-06-05] MEDS: DOXYCYCLINE HYCLATE 100 MG TABLET PO (16:28)
[2023-06-05] MEDS: BUMETANIDE INJ 1 MG/4 ML VIAL IV PUSH (16:32)
--- NOTE | 2023-06-05 16:53 | PM.IMHP ---
H&P: HPI History of Present Illness Date/Time: 06/05/23 16:45 Chief Complaint: Shortness of breath. Narrative: This is an 88-year-old male with chronic respiratory failure on 2 L nasal cannula, aortic stenosis status post TAVR, paroxysmal atrial fibrillation, coronary artery disease, peripheral arterial disease, type 2 diabetes, chronic kidney disease, hypertension, dyslipidemia, combined systolic and diastolic congestive heart failure, ulcerative colitis, and other comorbidities who presented to the emergency department for evaluation of shortness of breath. The patient provides the following history. He endorses acute on chronic dyspnea on lesser and lesser exertion for the past 4 to 5 days or so. He has also developed a hacking cough which has been productive of clear/white sputum. He has chronic swelling in his legs and is unable to tell me whether not a are more swollen than usual. Today he took a dose of bumetanide 2 mg as he thought perhaps he was getting fluid overloaded. With further questioning he admits that he is supposed to take 2 mg daily though he only takes a when he feels he needs it, maybe 1 time a week. He found an old rescue inhaler today which he tried though that was of no benefit either. He decided to come in for evaluation given worsening symptoms. He denies fever, chills, sweats, sinus congestion, sore throat, chest pain, pleuritic pain, nausea, and vomiting. No sick contacts. In the ED: He was afebrile on arrival. SpO2 has been in the mid 90s on his usual 2 L. Systolic blood pressures have been running high, in the 190s to low 200s. Patient reports that his blood pressures were high at the director biology office several weeks ago and his Coreg was doubled to 12.5 mg q.12 hours. He is also on isosorbide mononitrate 30 mg daily which he believes that he took today. Troponin has been well within normal range. ProBNP was 7290. CMP and CBC were reviewed and they seem consistent with his baseline labs. EKG showed a paced rhythm. Chest x-ray showed patchy opacities in the lung bases and left midlung zone consistent with atelectasis versus pneumonia. He was given a dose of bumetanide 1 mg IV, ceftriaxone 1 g IV, and doxycycline 100 mg p.o., and hydralazine 10 mg IV. He is being admitted in this setting for further treatment of presumed pneumonia and possible mild volume overload. Review of Systems Review of Systems: Twelve systems were reviewed and are negative except for as per HPI. [facility] Past Medical History Medical History (Updated 06/05/23 @ 23:29 by Kiana Strong PA-C) Abdominal aortic aneurysm Anemia in chronic kidney disease Aortic valve stenosis, acquired Status post TAVR. Arthritis Chronic anticoagulation Chronic atrial fibrillation, unspecified Chronic kidney disease, stage 4 (severe) Baseline creatinine is around 2.90. 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 Coronary artery disease involving [place] coronary artery of [place] heart Diabetic peripheral neuropathy Dyslipidemia Essential tremor Gout Hypertension, essential Loculated pleural effusion (07/2021) Nephrolithiasis Parapneumonic effusion (07/2021) Status post chest tube and intrapleural tPA. Paroxysmal atrial fibrillation (12/21/18) Status post ablation. Peripheral vascular disease of lower extremity Polymyalgia rheumatica Type 2 diabetes mellitus Ulcerative colitis Surgical History Surgical History History of cardiac catheterization History of cataract extraction History of colonoscopy with polypectomy History of heart artery stent History of incision and drainage I&D of left rectal abscess 09/05/[address] Betancur. History of partial colectomy History of transcatheter aortic valve replacement (TAVR) (1
[2023-06-05 17:10] LABS: Troponin I 0.031 ng/mL (0.000-0.034)
[2023-06-05 17:41] LABS: Procalcitonin 3.4 ng/mL
--- NOTE | 2023-06-05 19:14 | PC.NURSE ---
Assumed care of pt from SPARKLE [facility] at this time.
--- NOTE | 2023-06-05 20:09 | ECG_ITS ---
Measurements Intervals [place] Rate: 68 P: [place]: 0 QRS: 267 QRSD: 145 T: 94 QT: 443 QTc: 472 Interpretive Statements ELECTRONIC VENTRICULAR PACEMAKER ABNORMAL RHYTHM ECG COMPARED TO ECG 06/05/2023 13:47:04 NO SIGNIFICANT CHANGES Electronically Signed On 06-06-2023 13:58:37 BRACE MAKER by Geoff Ledezma M.D.
[2023-06-05 20:41] LABS: Troponin I 0.034 ng/mL (0.000-0.034)
--- NOTE | 2023-06-05 20:51 | PC.NURSE ---
Report called to Debra on [facility]. Stated she could not/would not accept pt w high BP readings. This RN is consulting hopsitalist for PRN order BP medication so pt can be admitted to room.
[2023-06-05] MEDS: carvediloL 12.5 MG TABLET PO (21:44)
[2023-06-06] VITALS (16 sets, daily range): BP systolic 163–202; BP diastolic 47–70; PULSE 60–64; RESP 16–17; TEMP 36.4–36.9; O2SAT 93–97
[2023-06-06] MEDS: BUMETANIDE INJ 1 MG/4 ML VIAL IV PUSH (04:04)
[2023-06-06] MEDS: TOPIRAMATE 25 MG TABLET PO ×3 (04:04→20:36)
--- NOTE | 2023-06-06 04:55 | ADMGEN ---
This patient, Cipriano Garcia, was admitted to Medical Room 246-01. Patient/family oriented to hospital policies and general routines including ID bracelet, bed and alarms, visiting hours, pain management, procedures, bathroom and other care routines, personal items, smoking policy, room service/diet, and visiting hours. Information on how to activate the Rapid Response Team has been discussed. Patient/Family are encouraged to report perceived risks to care and to ask questions if they do not understand what they are told or what they should do.
--- NOTE | 2023-06-06 05:13 | PC.NURSE ---
Pt is a&o x4, able to make needs known. Orientation provided to room and call light, understanding verbalized. Pt is SOB, currently on3 L n/s, baseline at home is 2L n/c. Pt's breathing improved when we sat him up in bed. Pt is continent of urine, uses urinal, colostomy appliance in R lower quadrant. Pt denies pain. Pt in on HH diet, ambulates with assist of 1 and walker. Pt denies any further questions.
[2023-06-06] MEDS: BUMETANIDE INJ 1 MG/4 ML VIAL (05:58)
[2023-06-06] MEDS: hydrALAZINE HCL 20 MG/ML VIAL 10 MG IV PUSH ×2 (05:58→20:37)
[2023-06-06 06:11] LABS: Hematocrit 40.7 % (42.0-52.0); Hemoglobin 12.4 g/dL (14.0-18.0); Mean Corpuscular HGB Conc 30.5 g/dl (32-36); Mean Corpuscular Hemoglobin 32.5 pg (26-34); Mean Corpuscular Volume 106.5 fl (80-100); Mean Platelet Volume 12.6 fl (7.4-10.4); Platelet Count Result 127 k/mm3 (150-375); Red Blood Count 3.82 M/mm3 (4.6-6.20); Red Cell Distribution Width 15.3 % (11.5-14.5)
[2023-06-06 06:19] LABS: Anion Gap 6 mmol/L (8-16); Blood Urea Nitrogen 38 mg/dL (9-20); Calcium 9.4 mg/dL (8.4-10.2); Carbon Dioxide 23 mmol/L (22-30); Chloride 115 mmol/L (98-107); Estimated CRCL calculation 25 ml/min; Estimated Glomerular Filt Rate 36; Glucose 160 mg/dL (65-110); Magnesium 2.3 mg/dL (1.6-2.3); Potassium 4.6 mmol/L (3.4-5.0); Sodium 144 mmol/L (137-145)
[2023-06-06] MEDS: ISOSORBIDE MONONITRATE 30 MG TAB.ER.24H PO (09:55)
[2023-06-06] MEDS: PRAVASTATIN SODIUM 20 MG TABLET PO (09:55)
[2023-06-06] MEDS: DOXYCYCLINE HYCLATE 100 MG TABLET PO ×2 (09:55→20:36)
[2023-06-06] MEDS: CARBIDOPA/LEVODOPA 25/100 MG TABLET 1 TABLET PO ×3 (09:56→17:26)
[2023-06-06] MEDS: carvediloL 12.5 MG TABLET PO ×2 (09:56→20:36)
[2023-06-06] MEDS: GABAPENTIN 300 MG CAPSULE PO ×2 (09:56→17:26)
[2023-06-06] MEDS: BUMETANIDE 1 MG TABLET 2 MG PO (09:56)
--- NOTE | 2023-06-06 12:28 | PM.IMPN ---
Progress Note: A&P Assessment and Plan (1) Pneumonia: Qualifiers: Laterality: left Lung location: unspecified part of lung Pneumonia type: due to unspecified organism Qualified Code(s): J18.9 - Pneumonia, unspecified organism Code(s): J18.9 - Pneumonia, unspecified organism Status: Resolved Assessment and Plan: Patient presents with increasing shortness of breath and productive cough as per HPI. Chest x-ray shows patchy opacities at the lung bases and left mid lung zone. Procalcitonin elevated at 3.4 thus will treat as pneumonia. Continue ceftriaxone 1 g IV daily and doxycycline 100 mg p.o. b.i.d. Repeat Xray chest in am.. (2) Uncontrolled hypertension: Code(s): I10 - Essential (primary) hypertension Status: Acute Assessment and Plan: Much better now, continue current treatment. (3) Chronic combined systolic and diastolic congestive heart failure: Code(s): I50.42 - Chronic combined systolic (congestive) and diastolic (congestive) heart failure Status: Resolved Assessment and Plan: Patient endorses chronic edema and proBNP is near baseline. Not compliant with bumetanide 2 mg daily. Monitor I and O, continue current treatment. (4) Chronic kidney disease: Code(s): N18.9 - Chronic kidney disease, unspecified Status: Acute Assessment and Plan: Creatinine is stable compared to previous labs. (5) Chronic respiratory failure with hypoxia, on home oxygen therapy: Code(s): J96.11 - Chronic respiratory failure with hypoxia; Z99.81 - Dependence on supplemental oxygen Status: Chronic Assessment and Plan: SpO2 is in the mid 90s on his usual 2 L. (6) Chronic obstructive pulmonary disease: Qualifiers: COPD type: COPD with acute lower respiratory infection Qualified Code(s): J44.0 - Chronic obstructive pulmonary disease with (acute) lower respiratory infection Code(s): J44.9 - Chronic obstructive pulmonary disease, unspecified Status: Chronic Assessment and Plan: No evidence of acute exacerbation. (7) Chronic anticoagulation: Code(s): Z79.01 - USP (current) use of anticoagulants Status: Acute Assessment and Plan: Continue rivaroxaban. Plan Continue current treatment and repeat Xray in am. Subjective Date/time seen: 06/06/23 12:28 Interval history: Patient was seen during morning rounds today. Patient complained cough and mild shortness of breath. No chest pain. No abdominal pain, nausea, vomiting. Mood stable. Review of Systems Review of Systems: Twelve systems were reviewed and are negative except for as per HPI. Exam Narrative: General:?Mildly ill-appearing male supine in bed. Weight: 77 kg.? BMI: 29.1. HEENT:??PERRL, EOMI. Sclerae anicteric. Moist mucous membranes. Neck:??Supple. No significant JVD. Respiratory:?Air entry decreased, few rales at the bases. Cardiovascular:??Regular rate and rhythm with S1-S2. Soft murmur at the upper sternal border. Gastrointestinal:??Abdomen is soft and nondistended with positive bowel sounds. Ostomy is draining soft brown/yellow stool. There is a hernia surrounding the stoma. No guarding or rebound tenderness. Skin:??Warm and dry on limited exam. Extremities:??No cyanosis or clubbing. Soft 2 to 3+ pitting edema to the knees. No palpable knots or cords. Negative Marco sign bilaterally. Neurological:??Alert and oriented? Cranial nerves 2-12 are grossly intact. No gross focal deficits. Psychiatric:??Pleasant and cooperative.? Appropriate mood and affect. Objective Data Vital Signs Vital Signs: Vital Signs - 24 hr 06/05/23 13:16 06/05/23 13:44 06/05/23 13:44 Temperature 35.8 C L Pulse Rate 62 97 Respiratory Rate 20 Blood Pressure 207/86 H Pulse Oximetry 94 98 Oxygen Delivery Nasal Cannula Nasal Cannula Oxygen Flow Rate 3 2 06/05/23 14:15 06/05/23 14:24 06/05/23 14:35 T
[2023-06-06] MEDS: HYDROcodone/acetaminophen (*CRX) 10-325 MG TABLET 1 TAB PO (14:21)
[2023-06-06] MEDS: RIVAROXABAN 15 MG TABLET PO (17:26)
[2023-06-07] VITALS (22 sets, daily range): BP systolic 148–189; BP diastolic 52–92; PULSE 59–85; RESP 16–20; TEMP 36.5–36.6; O2SAT 93–96
[2023-06-07 05:19] LABS: Basophils Absolute Auto 0.1 K/mm3 (0.0-0.1); Basophils Percent Auto 0.7 % (0.2-1.2); Eosinophils Absolute Auto 0.1 K/mm3 (0-0.3); Eosinophils Percent Auto 1.1 % (0-4.4); Hematocrit 38.7 % (42.0-52.0); Hemoglobin 11.7 g/dL (14.0-18.0); Immature Granulocyte Absolute 0.03 K/mm3 (0.00-0.031); Immature Granulocyte Percent A 0.4 % (0-0.5); Immature Platelet Fraction Pct 4.5 % (0.9-11.2); Lymphocytes Absolute Auto 0.67 K/mm3 (0.9-3.2); Lymphocytes Percent Auto 9.3 % (18.3-44.2); Mean Corpuscular HGB Conc 30.2 g/dl (32-36); Mean Corpuscular Hemoglobin 32.5 pg (26-34); Mean Corpuscular Volume 107.5 fl (80-100); Mean Platelet Volume 11.6 fl (7.4-10.4); Monocytes Absolute Auto 0.7 K/mm3 (0.1-0.6); Monocytes Percent Auto 9.3 % (2.6-8.5); Neutrophils Absolute Auto 5.7 K/mm3 (1.3-6.7); Neutrophils Percent Auto 79.2 % (45.5-73.1); Platelet Count Result 112 k/mm3 (150-375); Red Cell Distribution Width 15.3 % (11.5-14.5); White Blood Count 7.2 K/mm3 (4.5-10.0)
[2023-06-07] MEDS: hydrALAZINE HCL 20 MG/ML VIAL 10 MG IV PUSH ×2 (05:27→17:14)
[2023-06-07 05:31] LABS: Anion Gap 6 mmol/L (8-16); Blood Urea Nitrogen 43 mg/dL (9-20); Carbon Dioxide 24 mmol/L (22-30); Chloride 114 mmol/L (98-107); Estimated CRCL calculation 23 ml/min; Estimated Glomerular Filt Rate 32; Glucose 143 mg/dL (65-110); Potassium 4.1 mmol/L (3.4-5.0); Sodium 144 mmol/L (137-145)
[2023-06-07 06:32] LABS: Procalcitonin 3.5 ng/mL
[2023-06-07] MEDS: CARBIDOPA/LEVODOPA 25/100 MG TABLET 1 TABLET PO ×3 (08:48→17:14)
[2023-06-07] MEDS: BUMETANIDE 1 MG TABLET 2 MG PO (08:48)
[2023-06-07] MEDS: GABAPENTIN 300 MG CAPSULE PO ×2 (08:49→17:14)
[2023-06-07] MEDS: ISOSORBIDE MONONITRATE 30 MG TAB.ER.24H PO ×2 (08:49→13:36)
[2023-06-07] MEDS: TOPIRAMATE 25 MG TABLET PO ×2 (08:49→20:15)
[2023-06-07] MEDS: DOXYCYCLINE HYCLATE 100 MG TABLET PO ×2 (08:49→20:15)
[2023-06-07] MEDS: carvediloL 12.5 MG TABLET PO ×2 (08:49→20:16)
[2023-06-07] MEDS: PRAVASTATIN SODIUM 20 MG TABLET PO (08:49)
[2023-06-07] MEDS: HYDROcodone/acetaminophen (*CRX) 5-325 MG TABLET 1 TAB PO ×2 (08:52→17:14)
--- NOTE | 2023-06-07 13:10 | PM.IMPN ---
Progress Note: A&P Assessment and Plan (1) Pneumonia: Qualifiers: Laterality: left Lung location: unspecified part of lung Pneumonia type: due to unspecified organism Qualified Code(s): J18.9 - Pneumonia, unspecified organism Code(s): J18.9 - Pneumonia, unspecified organism Status: Resolved Assessment and Plan: Patient presents with increasing shortness of breath and productive cough as per HPI. Chest x-ray shows patchy opacities at the lung bases and left mid lung zone. Procalcitonin elevated at 3.4 thus will treat as pneumonia. Continue ceftriaxone 1 g IV daily and doxycycline 100 mg p.o. b.i.d. Chest x-ray reviewed (2) Uncontrolled hypertension: Code(s): I10 - Essential (primary) hypertension Status: Acute Assessment and Plan: Much better now, continue current treatment. (3) Chronic combined systolic and diastolic congestive heart failure: Code(s): I50.42 - Chronic combined systolic (congestive) and diastolic (congestive) heart failure Status: Resolved Assessment and Plan: Patient endorses chronic edema and proBNP is near baseline. Not compliant with bumetanide 2 mg daily. Monitor I and O, continue current treatment Creatinine up. From 1.6. However his creatinine has fluctuated between 1s to 2s. Will continue to monitor (4) Chronic kidney disease: Code(s): N18.9 - Chronic kidney disease, unspecified Status: Acute Assessment and Plan: Creatinine is stable compared to previous labs. With possible mild RACHAEL versus normal fluctuation (5) Chronic respiratory failure with hypoxia, on home oxygen therapy: Code(s): J96.11 - Chronic respiratory failure with hypoxia; Z99.81 - Dependence on supplemental oxygen Status: Chronic Assessment and Plan: SpO2 is in the mid 90s on his usual 2 L. (6) Chronic obstructive pulmonary disease: Qualifiers: COPD type: COPD with acute lower respiratory infection Qualified Code(s): J44.0 - Chronic obstructive pulmonary disease with (acute) lower respiratory infection Code(s): J44.9 - Chronic obstructive pulmonary disease, unspecified Status: Chronic Assessment and Plan: No evidence of acute exacerbation. (7) Chronic anticoagulation: Code(s): Z79.01 - superintendent container terminal (current) use of anticoagulants Status: Acute Assessment and Plan: Continue rivaroxaban. Subjective Date/time seen: 06/07/23 13:10 Interval history: Continues to have some cough. Blood pressure is elevated. Discussed with nursing staff. at bedside and discussed with her. Breathing is is still little worse. Leg swelling about the same Review of Systems Review of Systems: All systems reviewed & are unremarkable except as noted in HPI and below Exam Narrative: General:?Mildly ill-appearing male supine in bed. Not in acute distress HEENT:??PERRL, EOMI. Sclerae anicteric. Moist mucous membranes. Neck:??Supple. No significant JVD. Respiratory:?Air entry decreased, few rales at the bases. Coarse breath sound bilaterally Cardiovascular:??Regular rate and rhythm with S1-S2. Soft murmur at the upper sternal border. Gastrointestinal:??Abdomen is soft and nondistended with positive bowel sounds. Ostomy is draining soft brown/yellow stool. There is a hernia surrounding the stoma. No guarding or rebound tenderness. Skin:??Warm and dry on limited exam. Extremities:??No cyanosis or clubbing. Soft trace pitting edema to the knees. No palpable knots or cords. Neurological:??Alert and oriented? Cranial nerves 2-12 are grossly intact. No gross focal deficits. Psychiatric:??Pleasant and cooperative.? Appropriate mood and affect. Objective Data Vital Signs Vital Signs: Vital Signs - 24 hr 06/06/23 14:05 06/06/23 13:57 06/06/23 14:39 Temperature 98.4 F Pulse Rate 60 Respiratory Rate 17 Blood Pressure 165/59 H Pulse Oximetry 96 Oxygen Delivery
[2023-06-07] MEDS: IPRATROPIUM BR 0.02% INH SOLN 0.5 MG/2.5 ML VIAL INHALATION ×2 (14:33→20:20)
[2023-06-07] MEDS: ALBUTEROL SULFATE NEB 2.5 MG/3 ML INH INHALATION ×2 (14:33→20:21)
[2023-06-07] MEDS: RIVAROXABAN 15 MG TABLET PO (17:14)
[2023-06-08] VITALS (20 sets, daily range): BP systolic 143–189; BP diastolic 58–77; PULSE 60–72; RESP 14–20; TEMP 36.4–36.9; O2SAT 93–98
[2023-06-08 05:11] LABS: Basophils Absolute Auto 0.1 K/mm3 (0.0-0.1); Basophils Percent Auto 0.8 % (0.2-1.2); Eosinophils Absolute Auto 0.2 K/mm3 (0-0.3); Eosinophils Percent Auto 2.4 % (0-4.4); Hemoglobin 11.1 g/dL (14.0-18.0); Immature Granulocyte Absolute 0.02 K/mm3 (0.00-0.031); Immature Granulocyte Percent A 0.3 % (0-0.5); Lymphocytes Absolute Auto 0.58 K/mm3 (0.9-3.2); Lymphocytes Percent Auto 8.8 % (18.3-44.2); Mean Corpuscular Hemoglobin 32.3 pg (26-34); Mean Corpuscular Volume 107.6 fl (80-100); Mean Platelet Volume 12.1 fl (7.4-10.4); Monocytes Absolute Auto 0.7 K/mm3 (0.1-0.6); Neutrophils Percent Auto 76.7 % (45.5-73.1); Platelet Count Result 122 k/mm3 (150-375); Red Blood Count 3.44 M/mm3 (4.6-6.20); Red Cell Distribution Width 14.9 % (11.5-14.5); White Blood Count 6.6 K/mm3 (4.5-10.0)
[2023-06-08 05:27] LABS: Albumin Level 2.9 g/dL (3.5-5.1); Alkaline Phosphatase 125 U/L (38-126); Anion Gap 6 mmol/L (8-16); Aspartate Amino Transferase 14 U/L (17-59); Bilirubin,Total 0.6 mg/dL (0.2-1.3); Blood Urea Nitrogen 45 mg/dL (9-20); Calcium 8.6 mg/dL (8.4-10.2); Carbon Dioxide 23 mmol/L (22-30); Chloride 114 mmol/L (98-107); Estimated CRCL calculation 24 ml/min; Estimated Glomerular Filt Rate 34; Glucose 138 mg/dL (65-110); Magnesium 2.1 mg/dL (1.6-2.3); Potassium 3.9 mmol/L (3.4-5.0); Sodium 143 mmol/L (137-145)
[2023-06-08 05:46] LABS: Procalcitonin 3.5 ng/mL
[2023-06-08 05:49] LABS: Alanine Aminotransferase < 6 U/L (6-50)
[2023-06-08] MEDS: IPRATROPIUM BR 0.02% INH SOLN 0.5 MG/2.5 ML VIAL INHALATION ×3 (08:47→20:55)
[2023-06-08] MEDS: ALBUTEROL SULFATE NEB 2.5 MG/3 ML INH INHALATION ×3 (08:47→20:55)
[2023-06-08] MEDS: CARBIDOPA/LEVODOPA 25/100 MG TABLET 1 TABLET PO ×3 (10:28→17:37)
[2023-06-08] MEDS: TOPIRAMATE 25 MG TABLET PO ×2 (10:28→20:15)
[2023-06-08] MEDS: PRAVASTATIN SODIUM 20 MG TABLET PO (10:28)
[2023-06-08] MEDS: DOXYCYCLINE HYCLATE 100 MG TABLET PO ×2 (10:28→20:15)
[2023-06-08] MEDS: BUMETANIDE 1 MG TABLET 2 MG PO (10:28)
[2023-06-08] MEDS: ISOSORBIDE MONONITRATE 60 MG TAB.ER.24H PO (10:28)
[2023-06-08] MEDS: GABAPENTIN 300 MG CAPSULE PO ×2 (10:28→17:37)
[2023-06-08] MEDS: carvediloL 12.5 MG TABLET PO ×2 (10:31→20:15)
[2023-06-08] MEDS: HYDROcodone/acetaminophen (*CRX) 5-325 MG TABLET 1 TAB PO ×2 (10:34→20:15)
--- NOTE | 2023-06-08 12:31 | PM.IMPN ---
Progress Note: A&P Assessment and Plan (1) Pneumonia: Qualifiers: Laterality: left Lung location: unspecified part of lung Pneumonia type: due to unspecified organism Qualified Code(s): J18.9 - Pneumonia, unspecified organism Code(s): J18.9 - Pneumonia, unspecified organism Status: Resolved Assessment and Plan: Patient presents with increasing shortness of breath and productive cough as per HPI. Chest x-ray shows patchy opacities at the lung bases and left mid lung zone. Procalcitonin elevated at 3.4 thus will treat as pneumonia. Procalcitonin remains elevated Continue ceftriaxone 1 g IV daily and doxycycline 100 mg p.o. b.i.d. Chest x-ray reviewed (2) Uncontrolled hypertension: Code(s): I10 - Essential (primary) hypertension Status: Acute Assessment and Plan: Much better now, continue current treatment. Increased Imdur to 60 mg daily (3) Chronic combined systolic and diastolic congestive heart failure: Code(s): I50.42 - Chronic combined systolic (congestive) and diastolic (congestive) heart failure Status: Resolved Assessment and Plan: Patient endorses chronic edema and proBNP is near baseline. Not compliant with bumetanide 2 mg daily. Monitor I and O, continue current treatment Creatinine up. From 1.6. However his creatinine has fluctuated between 1s to 2s. Will continue to monitor (4) Chronic kidney disease: Code(s): N18.9 - Chronic kidney disease, unspecified Status: Acute Assessment and Plan: Creatinine is stable compared to previous labs. With possible mild RACHAEL versus normal fluctuation (5) Chronic respiratory failure with hypoxia, on home oxygen therapy: Code(s): J96.11 - Chronic respiratory failure with hypoxia; Z99.81 - Dependence on supplemental oxygen Status: Chronic Assessment and Plan: SpO2 is in the mid 90s on his usual 2 L. (6) Chronic obstructive pulmonary disease: Qualifiers: COPD type: COPD with acute lower respiratory infection Qualified Code(s): J44.0 - Chronic obstructive pulmonary disease with (acute) lower respiratory infection Code(s): J44.9 - Chronic obstructive pulmonary disease, unspecified Status: Chronic Assessment and Plan: No evidence of acute exacerbation. (7) Chronic anticoagulation: Code(s): Z79.01 - detention (current) use of anticoagulants Status: Acute Assessment and Plan: Continue rivaroxaban. Subjective Date/time seen: 06/08/23 12:31 Interval history: Feels better today. Blood pressure has improved. at bedside. Discussed with her. Still has intermittent cough. But improved. Review of Systems Review of Systems: All systems reviewed & are unremarkable except as noted in HPI and below Exam Narrative: General:?Mildly ill-appearing male supine in bed. Not in acute distress HEENT:??PERRL, EOMI. Sclerae anicteric. Moist mucous membranes. Neck:??Supple. No significant JVD. Respiratory:?Air entry decreased, few rales at the bases. Coarse breath sound bilaterally Cardiovascular:??Regular rate and rhythm with S1-S2. Soft murmur at the upper sternal border. Gastrointestinal:??Abdomen is soft and nondistended with positive bowel sounds. Ostomy is draining soft brown/yellow stool. There is a hernia surrounding the stoma. No guarding or rebound tenderness. Skin:??Warm and dry on limited exam. Extremities:??No cyanosis or clubbing. Soft trace pitting edema to the knees. No palpable knots or cords. Neurological:??Alert and oriented? Cranial nerves 2-12 are grossly intact. No gross focal deficits. Psychiatric:??Pleasant and cooperative.? Appropriate mood and affect. Objective Data Vital Signs Vital Signs: Vital Signs - 24 hr 06/07/23 13:34 06/07/23 14:00 06/07/23 14:36 Temperature 97.8 F 97.9 F Pulse Rate 85 63 60 Respiratory Rate 18 16 20 Blood Pressure 176/68 H 178/67 H Pulse Oximet
[2023-06-08] MEDS: RIVAROXABAN 15 MG TABLET PO (17:37)
[2023-06-09] VITALS (21 sets, daily range): BP systolic 159–204; BP diastolic 56–93; PULSE 60–72; RESP 14–18; TEMP 36.3–36.7; O2SAT 90–100
[2023-06-09 06:14] LABS: Anion Gap 5 mmol/L (8-16); Basophils Percent Auto 0.6 % (0.2-1.2); Blood Urea Nitrogen 45 mg/dL (9-20); Calcium 8.7 mg/dL (8.4-10.2); Carbon Dioxide 24 mmol/L (22-30); Chloride 113 mmol/L (98-107); Eosinophils Absolute Auto 0.1 K/mm3 (0-0.3); Eosinophils Percent Auto 2.2 % (0-4.4); Estimated CRCL calculation 24 ml/min; Estimated Glomerular Filt Rate 34; Glucose 129 mg/dL (65-110); Hematocrit 37.3 % (42.0-52.0); Hemoglobin 11.4 g/dL (14.0-18.0); Immature Granulocyte Absolute 0.02 K/mm3 (0.00-0.031); Immature Granulocyte Percent A 0.3 % (0-0.5); Lymphocytes Absolute Auto 0.53 K/mm3 (0.9-3.2); Lymphocytes Percent Auto 8.5 % (18.3-44.2); Magnesium 2.1 mg/dL (1.6-2.3); Mean Corpuscular HGB Conc 30.6 g/dl (32-36); Mean Corpuscular Hemoglobin 32.3 pg (26-34); Mean Corpuscular Volume 105.7 fl (80-100); Mean Platelet Volume 11.9 fl (7.4-10.4); Monocytes Absolute Auto 0.7 K/mm3 (0.1-0.6); Neutrophils Absolute Auto 4.8 K/mm3 (1.3-6.7); Neutrophils Percent Auto 77.4 % (45.5-73.1); Platelet Count Result 123 k/mm3 (150-375); Potassium 3.6 mmol/L (3.4-5.0); Red Blood Count 3.53 M/mm3 (4.6-6.20); Red Cell Distribution Width 14.5 % (11.5-14.5); Sodium 142 mmol/L (137-145); White Blood Count 6.3 K/mm3 (4.5-10.0)
[2023-06-09 07:04] LABS: Procalcitonin 3.2 ng/mL
[2023-06-09] MEDS: ALBUTEROL SULFATE NEB 2.5 MG/3 ML INH INHALATION ×3 (08:03→20:09)
[2023-06-09] MEDS: IPRATROPIUM BR 0.02% INH SOLN 0.5 MG/2.5 ML VIAL INHALATION ×3 (08:04→20:09)
[2023-06-09] MEDS: CARBIDOPA/LEVODOPA 25/100 MG TABLET 1 TABLET PO ×3 (08:48→17:09)
[2023-06-09] MEDS: BUMETANIDE 1 MG TABLET 2 MG PO (08:48)
[2023-06-09] MEDS: GABAPENTIN 300 MG CAPSULE PO ×2 (08:48→17:09)
[2023-06-09] MEDS: DOXYCYCLINE HYCLATE 100 MG TABLET PO ×2 (08:48→20:41)
[2023-06-09] MEDS: ISOSORBIDE MONONITRATE 60 MG TAB.ER.24H PO (08:49)
[2023-06-09] MEDS: PRAVASTATIN SODIUM 20 MG TABLET PO (08:49)
[2023-06-09] MEDS: TOPIRAMATE 25 MG TABLET PO ×2 (08:49→20:40)
[2023-06-09] MEDS: carvediloL 12.5 MG TABLET PO ×2 (08:49→20:40)
[2023-06-09] MEDS: hydrALAZINE HCL 20 MG/ML VIAL 10 MG IV PUSH ×2 (08:50→16:10)
--- NOTE | 2023-06-09 13:32 | PM.IMPN ---
Progress Note: A&P Assessment and Plan (1) Pneumonia: Qualifiers: Laterality: left Lung location: unspecified part of lung Pneumonia type: due to unspecified organism Qualified Code(s): J18.9 - Pneumonia, unspecified organism Code(s): J18.9 - Pneumonia, unspecified organism Status: Resolved Assessment and Plan: Patient presents with increasing shortness of breath and productive cough as per HPI. Chest x-ray shows patchy opacities at the lung bases and left mid lung zone. Procalcitonin elevated at 3.4 thus will treat as pneumonia. Procalcitonin remains elevated Continue ceftriaxone 1 g IV daily and doxycycline 100 mg p.o. b.i.d. Chest x-ray reviewed Switch antibiotics to oral (2) Uncontrolled hypertension: Code(s): I10 - Essential (primary) hypertension Status: Acute Assessment and Plan: Much better now, continue current treatment. Increased Imdur to 60 mg daily (3) Chronic combined systolic and diastolic congestive heart failure: Code(s): I50.42 - Chronic combined systolic (congestive) and diastolic (congestive) heart failure Status: Resolved Assessment and Plan: Patient endorses chronic edema and proBNP is near baseline. Not compliant with bumetanide 2 mg daily. Monitor I and O, continue current treatment Creatinine up. From 1.6. However his creatinine has fluctuated between 1s to 2s. Will continue to monitor (4) Chronic kidney disease: Code(s): N18.9 - Chronic kidney disease, unspecified Status: Acute Assessment and Plan: Creatinine is stable compared to previous labs. With possible mild RACHAEL versus normal fluctuation (5) Chronic respiratory failure with hypoxia, on home oxygen therapy: Code(s): J96.11 - Chronic respiratory failure with hypoxia; Z99.81 - Dependence on supplemental oxygen Status: Chronic Assessment and Plan: SpO2 is in the mid 90s on his usual 2 L. (6) Chronic obstructive pulmonary disease: Qualifiers: COPD type: COPD with acute lower respiratory infection Qualified Code(s): J44.0 - Chronic obstructive pulmonary disease with (acute) lower respiratory infection Code(s): J44.9 - Chronic obstructive pulmonary disease, unspecified Status: Chronic Assessment and Plan: No evidence of acute exacerbation. (7) Chronic anticoagulation: Code(s): Z79.01 - terminologist (current) use of anticoagulants Status: Acute Assessment and Plan: Continue rivaroxaban. Subjective Date/time seen: 06/09/23 13:32 Interval history: Overnight events. Feeling better. Back to baseline oxygen level. Ambulated with physical therapy. Review of Systems Review of Systems: All systems reviewed & are unremarkable except as noted in HPI and below Exam Narrative: General:?well-appearing male supine in bed. Not in acute distress HEENT:??PERRL, EOMI. Sclerae anicteric. Moist mucous membranes. Neck:??Supple. No significant JVD. Respiratory:?Air entry decreased, few rales at the bases. Coarse breath sound bilaterally Cardiovascular:??Regular rate and rhythm with S1-S2. Soft murmur at the upper sternal border. Gastrointestinal:??Abdomen is soft and nondistended with positive bowel sounds. Ostomy is draining soft brown/yellow stool. There is a hernia surrounding the stoma. No guarding or rebound tenderness. Skin:??Warm and dry on limited exam. Extremities:??No cyanosis or clubbing. Soft trace pitting edema to the knees. No palpable knots or cords. Neurological:??Alert and oriented? Cranial nerves 2-12 are grossly intact. No gross focal deficits. Psychiatric:??Pleasant and cooperative.? Appropriate mood and affect. Objective Data Vital Signs Vital Signs: Vital Signs - 24 hr 06/08/23 14:30 06/08/23 14:38 06/08/23 15:01 Temperature 98.4 F Pulse Rate 61 68 72 Respiratory Rate 17 20 20 Blood Pressure 155/66 H Pulse Oximetry 96 Oxygen Delivery
[2023-06-09] MEDS: HYDROcodone/acetaminophen (*CRX) 5-325 MG TABLET 1 TAB PO (15:56)
[2023-06-09] MEDS: CEFDINIR 300 MG CAPSULE PO (15:57)
[2023-06-09] MEDS: RIVAROXABAN 15 MG TABLET PO (17:08)
[2023-06-09] MEDS: hydrALAZINE HCL 25 MG TABLET PO (20:40)
[2023-06-10] VITALS (14 sets, daily range): BP systolic 92–181; BP diastolic 41–69; PULSE 60–122; RESP 16–18; TEMP 36.4; O2SAT 91–94
[2023-06-10] MEDS: ALBUTEROL SULFATE NEB 2.5 MG/3 ML INH INHALATION ×3 (02:12→13:20)
[2023-06-10] MEDS: IPRATROPIUM BR 0.02% INH SOLN 0.5 MG/2.5 ML VIAL INHALATION ×3 (02:12→13:20)
[2023-06-10 05:35] LABS: Basophils Percent Auto 0.5 % (0.2-1.2); Eosinophils Absolute Auto 0.1 K/mm3 (0-0.3); Eosinophils Percent Auto 1.7 % (0-4.4); Hematocrit 38.5 % (42.0-52.0); Hemoglobin 11.7 g/dL (14.0-18.0); Immature Granulocyte Absolute 0.04 K/mm3 (0.00-0.031); Immature Granulocyte Percent A 0.6 % (0-0.5); Lymphocytes Absolute Auto 0.66 K/mm3 (0.9-3.2); Lymphocytes Percent Auto 10.2 % (18.3-44.2); Mean Corpuscular HGB Conc 30.4 g/dl (32-36); Mean Corpuscular Hemoglobin 32.2 pg (26-34); Mean Corpuscular Volume 106.1 fl (80-100); Mean Platelet Volume 11.3 fl (7.4-10.4); Monocytes Absolute Auto 0.7 K/mm3 (0.1-0.6); Monocytes Percent Auto 10.8 % (2.6-8.5); Neutrophils Percent Auto 76.2 % (45.5-73.1); Platelet Count Result 112 k/mm3 (150-375); Red Blood Count 3.63 M/mm3 (4.6-6.20); Red Cell Distribution Width 14.6 % (11.5-14.5); White Blood Count 6.5 K/mm3 (4.5-10.0)
[2023-06-10 05:46] LABS: Anion Gap 6 mmol/L (8-16); Blood Urea Nitrogen 51 mg/dL (9-20); Calcium 8.9 mg/dL (8.4-10.2); Carbon Dioxide 24 mmol/L (22-30); Chloride 112 mmol/L (98-107); Estimated CRCL calculation 24 ml/min; Estimated Glomerular Filt Rate 34; Glucose 134 mg/dL (65-110); Potassium 3.8 mmol/L (3.4-5.0); Sodium 142 mmol/L (137-145)
[2023-06-10] MEDS: hydrALAZINE HCL 20 MG/ML VIAL 10 MG IV PUSH (05:55)
[2023-06-10 06:46] LABS: Procalcitonin 3.4 ng/mL
[2023-06-10] MEDS: hydrALAZINE HCL 25 MG TABLET PO ×2 (08:31→12:28)
[2023-06-10] MEDS: ISOSORBIDE MONONITRATE 60 MG TAB.ER.24H PO (08:31)
[2023-06-10] MEDS: CARBIDOPA/LEVODOPA 25/100 MG TABLET 1 TABLET PO ×2 (08:31→12:28)
[2023-06-10] MEDS: PRAVASTATIN SODIUM 20 MG TABLET PO (08:31)
[2023-06-10] MEDS: BUMETANIDE 1 MG TABLET 2 MG PO (08:31)
[2023-06-10] MEDS: carvediloL 12.5 MG TABLET PO (08:31)
[2023-06-10] MEDS: TOPIRAMATE 25 MG TABLET PO (08:31)
[2023-06-10] MEDS: GABAPENTIN 300 MG CAPSULE PO (08:31)
[2023-06-10] MEDS: DOXYCYCLINE HYCLATE 100 MG TABLET PO (08:32)
[2023-06-10] MEDS: HYDROcodone/acetaminophen (*CRX) 10-325 MG TABLET 1 TAB PO (08:34)
--- NOTE | 2023-06-10 09:03 | PCPTNOTE ---
Attempted to see patient for PT, however patient was eating breakfast.
--- NOTE | 2023-06-10 12:24 | PM.DS ---
DS: Admitting Diagnosis Discharge Date 06/10/2023 Admitting Diagnosis Shortness of breath DS: Discharge Diagnosis Discharge Diagnosis (1) Pneumonia: Qualifiers: Laterality: left Lung location: unspecified part of lung Pneumonia type: due to unspecified organism Qualified Code(s): J18.9 - Pneumonia, unspecified organism Code(s): J18.9 - Pneumonia, unspecified organism Status: Resolved (2) Uncontrolled hypertension: Code(s): I10 - Essential (primary) hypertension Status: Acute (3) Chronic combined systolic and diastolic congestive heart failure: Code(s): I50.42 - Chronic combined systolic (congestive) and diastolic (congestive) heart failure Status: Resolved (4) Chronic kidney disease: Code(s): N18.9 - Chronic kidney disease, unspecified Status: Acute (5) Chronic respiratory failure with hypoxia, on home oxygen therapy: Code(s): J96.11 - Chronic respiratory failure with hypoxia; Z99.81 - Dependence on supplemental oxygen Status: Chronic (6) Chronic obstructive pulmonary disease: Qualifiers: COPD type: COPD with acute lower respiratory infection Qualified Code(s): J44.0 - Chronic obstructive pulmonary disease with (acute) lower respiratory infection Code(s): J44.9 - Chronic obstructive pulmonary disease, unspecified Status: Chronic (7) Chronic anticoagulation: Code(s): Z79.01 - halfway (current) use of anticoagulants Status: Acute DS: Summary Hospital Course Hospital Course: # pneumonia: Patient presented with increasing shortness of breath and productive cough. Chest x-ray shows patchy opacities lung base and left mid lung zone. Procalcitonin was elevated. Treated with IV antibiotics with ceftriaxone and doxycycline. Also had uncontrolled hypertension on admission medication was adjusted. Patient also has chronic combined systolic and diastolic heart failure has chronic edema and pro BNP near baseline. He is not compliant with bumetanide 2 mg daily. Creatinine ranged between 1-2 at baseline. Remained euvolemic during the hospital stay chronic respiratory failure with hypoxia usual 2 L oxygen. Chronic anticoagulation with rivaroxaban. Patient significantly improved back to baseline oxygen level by the time of discharge. Ambulated with physical therapy and required home health at discharge which was arranged. Time Spent with Patient Time attestation: Total time spent providing and/or coordinating discharge services: 45 minutes Exam Narrative: General:?well-appearing male supine in bed. Not in acute distress HEENT:??PERRL, EOMI. Sclerae anicteric. Moist mucous membranes. Neck:??Supple. No significant JVD. Respiratory:?Air entry decreased, few rales at the bases. Coarse breath sound bilaterally Cardiovascular:??Regular rate and rhythm with S1-S2. Soft murmur at the upper sternal border. Gastrointestinal:??Abdomen is soft and nondistended with positive bowel sounds. Ostomy is draining soft brown/yellow stool. There is a hernia surrounding the stoma. No guarding or rebound tenderness. Skin:??Warm and dry on limited exam. Extremities:??No cyanosis or clubbing. Soft trace pitting edema to the knees. No palpable knots or cords. Neurological:??Alert and oriented? Cranial nerves 2-12 are grossly intact. No gross focal deficits. Psychiatric:??Pleasant and cooperative.? Appropriate mood and affect. DS: Data Data Completed and Pending Labs on day of discharge: Labs from last 24 hours 06/10/23 06/10/23 05:19 05:18 WBC 6.5 RBC 3.63 L Hgb 11.7 L Hct 38.5 L MCV 106.1 H MCH 32.2 MCHC 30.4 L RDW 14.6 H Plt Count 112 L MPV 11.3 H Immature Gran % (Auto) 0.6 H Neut % (Auto) 76.2 H Lymph % (Auto) 10.2 L [place] % (Auto) 10.8 H Eos % (Auto) 1.7 Baso % (Auto) 0.5 Lymph # (Auto) 0.66 L [place] # (Auto) 0.7 H Eos # (Auto) 0.1 Baso # (Auto) 0.0 Abs Immat Gran (auto) 0.04
[2023-06-10 14:32] LABS: Mycoplasma IgM Antibody Titer 23 U/mL (<770)
[2023-06-10 19:28] LABS: Pneumococcal Antigen Urine Not Detected (Not Detected)
[2023-06-11 03:53] LABS: Legionella pneumophila Ag Ur Not Detected (Not Detected)
== END 2023-06-10 13:52 | disposition home health service (06) | DRG 194 ==
LOC: ANHED 16:12 → ANH2MED 06-06 09:43
PROVIDERS: Emergency Medicine; Nurse Practitioner; Physician Assistant; Admitting Provider Hospitalist; Emergency Provider Student in an Organized Health Care Education/Training Program; PCP Family Medicine; Visit Provider Internal Medicine
DX: J18.9 Pneumonia, unspecified organism (principal); I13.0 Hypertensive heart and chronic kidney disease with heart failure and stage 1 through stage 4 chronic kidney disease, or unspecified chronic kidney disease; J44.0 Chronic obstructive pulmonary disease with (acute) lower respiratory infection; I50.42 Chronic combined systolic (congestive) and diastolic (congestive) heart failure; N18.4 Chronic kidney disease, stage 4 (severe); I42.9 Cardiomyopathy, unspecified; J96.11 Chronic respiratory failure with hypoxia; K51.90 Ulcerative colitis, unspecified, without complications; I48.0 Paroxysmal atrial fibrillation; I25.10 Atherosclerotic heart disease of native coronary artery without angina pectoris; I71.40 Abdominal aortic aneurysm, without rupture, unspecified; D63.1 Anemia in chronic kidney disease; E11.22 Type 2 diabetes mellitus with diabetic chronic kidney disease; E11.42 Type 2 diabetes mellitus with diabetic polyneuropathy; E78.5 Hyperlipidemia, unspecified; E11.51 Type 2 diabetes mellitus with diabetic peripheral angiopathy without gangrene; M54.16 Radiculopathy, lumbar region; Z20.822 Contact with and (suspected) exposure to COVID-19; Z79.01 Long term (current) use of anticoagulants; Z93.3 Colostomy status; Z99.81 Dependence on supplemental oxygen; Z95.2 Presence of prosthetic heart valve; Z95.0 Presence of cardiac pacemaker; Z95.5 Presence of coronary angioplasty implant and graft; Z95.820 Peripheral vascular angioplasty status with implants and grafts; Z86.010 Personal history of colon polyps; Z87.891 Personal history of nicotine dependence
CPT/HCPCS: 36415; 71046; 80048; 80053; 83735; 83880; 84145; 84484; 85025; 85027; 85055; 85610; 85730; 86738; 87040; 87449; 87637; 87899; 93005; 94640; 96365; 96375; 97110; 97116; 97161; 97165; 97530; 97535; 99285; A9270; G0378; J0360; J0696

== ENCOUNTER 2023-07-20 15:45 | Inpatient (IN) | payer MEDICARE, MEDICAID, SELFPAY ==
[2023-07-20] VITALS (9 sets, daily range): BP systolic 170–184; BP diastolic 54–93; PULSE 60–72; RESP 14–20; TEMP 36.6–36.9; O2SAT 91–98; BMI 25.9
--- NOTE | ~2023-07-20 | XR_ITS ---
XR chest 2V 07/23/2023 08:13 Indication: Bilateral infiltrates. Procedure: AP and lateral views of the chest Comparison: Comparison to multiple prior studies sequentially, with oldest reviewed study dated 05/23. Findings: Moderate bilateral pleural effusions, slightly increased. Diffuse bilateral airspace diseas e without significant change. No pneumothorax. Pacemaker leads are stable. No acute osseous abnormali ty. Impression: 1: Persistent bilateral airspace disease which may represent edema or pneumonia. 2: Enlarging moderate bilateral pleural effusions. Reviewed, dictated and finalized at location A. OLOGY TECHNOLOGIST Impression: 1: Persistent bilateral airspace disease which may represent edema or pneumonia . 2: Enlarging moderate bilateral pleural effusions.
--- NOTE | ~2023-07-20 | XR_ITS ---
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 RESULT: Lines, tubes, and devices: Left chest pacer with intact leads. Bowel replacement. Right apical/axill angelia surgical clips. Lungs and pleura: Moderate diffuse reticular opacities. Mild left and moderate right costophrenic an gle blunting. Subsegmental bibasilar airspace disease. Cardiomediastinal silhouette: Stable. Other: No acute osseous or upper abdominal finding. IMPRESSION: Moderate interstitial edema. Subsegmental bibasilar atelectasis/consolidation. Moderate right and mil d left pleural effusions. Reviewed, dictated and finalized at location K. CAL SYSTEMS ENGINEER IMPRESSION: Moderate interstitial edema. Subsegmental bibasilar atelectasis/consolidation. Moderate right and mild left pleural effusions.
--- NOTE | ~2023-07-20 | XR_ITS ---
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 RESULT: Lines, tubes, and devices: Left chest pacer with intact leads. Cardiac valve replacement. Lungs and pleura: Unchanged diffuse reticular opacities, patchy left basilar airspace disease, and h azy groundglass opacity in the right lower lung. Moderate right and mild left costophrenic angle blun ting. Cardiomediastinal silhouette: Stable. Other: No acute osseous or upper abdominal finding. IMPRESSION: Unchanged pulmonary opacities may represent edema, atelectasis, or infection. Moderate right and smal l left pleural effusions. Reviewed, dictated and finalized at location K. ESSOR OF PSYCHIATRY IMPRESSION: Unchanged pulmonary opacities may represent edema, atelectasis, or infection. M oderate right and small left pleural effusions.
--- NOTE | ~2023-07-20 | US_ITS ---
EXAMINATION: US venous doppler LE RT DATE: 07/24/2023 14:18 INDICATION: Right lower limb edema. TECHNIQUE: Grayscale ultrasound images without and with compression and Doppler ultrasound images of the right lower extremity veins were obtained. COMPARISON: Ultrasound 12/02/2021, CT pelvis 10/11/2022 FINDINGS: The visualized portions of right common femoral vein, profunda (deep) femoral vein, femoral vein, pop liteal vein, peroneal veins, posterior tibial veins, and greater saphenous vein outflow are patent. 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 IMPRESSION: 1. No deep venous thrombosis. 2. 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 Reviewed, dictated and finalized at location A. ING MANAGEMENT CONSULTING MANAGER IMPRESSION: 1. No deep venous thrombosis. 2. 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
--- NOTE | 2023-07-20 18:52 | ECG_ITS ---
Measurements Intervals [place] Rate: 62 P: [place]: 0 QRS: -73 QRSD: 140 T: 93 QT: 479 QTc: 490 Interpretive Statements ELECTRONIC VENTRICULAR PACEMAKER VENTRICULAR PREMATURE COMPLEX BASELINE ARTIFACT- V2-V3 NO FURTHER INTERPRETATION IS POSSIBLE ATYPICAL ECG COMPARED TO ECG 06/05/2023 20:09:36 NO SIGNIFICANT CHANGES Electronically Signed On 07-20-2023 19:28:21 WAGON DRIVER by Petar Dunaway D.O.
[2023-07-20 19:14] LABS: Basophils Percent Auto 0.3 % (0.2-1.2); Eosinophils Percent Auto 0.2 % (0-4.4); Hematocrit 36.1 % (42.0-52.0); Hemoglobin 10.3 g/dL (14.0-18.0); Immature Granulocyte Absolute 0.06 K/mm3 (0.00-0.031); Immature Granulocyte Percent A 0.5 % (0-0.5); Lymphocytes Absolute Auto 0.34 K/mm3 (0.9-3.2); Lymphocytes Percent Auto 2.9 % (18.3-44.2); Mean Corpuscular HGB Conc 28.5 g/dl (32-36); Mean Corpuscular Hemoglobin 32.2 pg (26-34); Mean Corpuscular Volume 112.8 fl (80-100); Mean Platelet Volume 11.3 fl (7.4-10.4); Monocytes Absolute Auto 1.1 K/mm3 (0.1-0.6); Monocytes Percent Auto 9.4 % (2.6-8.5); Neutrophils Absolute Auto 10.3 K/mm3 (1.3-6.7); Neutrophils Percent Auto 86.7 % (45.5-73.1); Platelet Count Result 148 k/mm3 (150-375); Red Cell Distribution Width 15.3 % (11.5-14.5); White Blood Count 11.9 K/mm3 (4.5-10.0)
[2023-07-20 19:23] LABS: INR 1.3; Prothrombin Time 16.8 Seconds (11.1-14.7)
[2023-07-20 19:24] LABS: Partial Thromboplastin Time 33.3 SECONDS (22.3-36.8)
[2023-07-20 19:25] LABS: Alanine Aminotransferase 6 U/L (6-50); Albumin Level 3.6 g/dL (3.5-5.1); Alkaline Phosphatase 139 U/L (38-126); Anion Gap 8 mmol/L (8-16); Aspartate Amino Transferase 17 U/L (17-59); Bilirubin,Total 0.6 mg/dL (0.2-1.3); Blood Urea Nitrogen 61 mg/dL (9-20); Calcium 9.3 mg/dL (8.4-10.2); Carbon Dioxide 24 mmol/L (22-30); Chloride 112 mmol/L (98-107); Estimated CRCL calculation 22 ml/min; Estimated Glomerular Filt Rate 30; Glucose 169 mg/dL (65-110); Potassium 5.3 mmol/L (3.4-5.0); Sodium 144 mmol/L (137-145)
[2023-07-20 19:34] LABS: NT Pro B Type Natriuretic Pept 5790 pg/mL (19.9-100)
[2023-07-20 19:43] LABS: Anisocytosis 1+ (NORMAL); Hypochromasia 1+ (NORMAL); Macrocytosis 1+ (NORMAL); Ovalocytes 1+ (NORMAL); Platelet Estimate Adequate (Adequate)
[2023-07-20 19:44] LABS: Schistocytes None Seen (NORMAL)
[2023-07-20 19:48] LABS: Influenza A QL RT-PCR Negative (Negative); Influenza B QL RT-PCR Negative (Negative); RSV RNA, RT-PCR Negative (Negative); SARS-CoV-2 RNA PCR Negative (Negative)
[2023-07-20 20:15] LABS: Lipase 223 U/L (23-300); Magnesium 2.6 mg/dL (1.6-2.3)
[2023-07-20 20:28] LABS: Troponin I 0.032 ng/mL (0.000-0.034)
--- NOTE | 2023-07-20 21:08 | ED.SOB ---
HPI - SOB/Dyspnea General Chief Complaint: Shortness of Breath/Dyspnea Stated Complaint: DYSPNEA Time Seen by Provider: 07/20/23 18:42 History of Present Illness HPI Narrative: Patient is an 88-year-old male with history of COPD on 2 L nasal cannula, CHF, hypertension, hyperlipidemia presenting with shortness of breath. Patient states that for the last week he has been increasingly short of breath and has a productive cough. States that he is normally on 2 L but he has had to increase it to 3-4. States that he is barely able to make it to the bathroom before he so out of breath that he has to use his inhaler. He denies chest pain or lightheadedness. No fevers or chills. No abdominal pain, nausea or vomiting. Does complain of mild leg swelling. States he is compliant with Lasix. Related Data Home Medications Medication Instructions Recorded Confirmed pravastatin 20 mg tablet 20 mg PO DAILY 04/13/22 07/20/23 rivaroxaban 15 mg tablet (Xarelto) 15 mg PO DAILY 04/30/23 07/20/23 calcium carbonate 600 mg-vitamin 1 tablet PO DAILY 06/05/23 07/20/23 D3 20 mcg (800 unit) chewable tablet (Caltrate 600 plus D) carvedilol 12.5 mg tablet (Coreg) 12.5 mg PO Q12H 06/05/23 07/20/23 carbidopa 25 mg-levodopa 100 mg 25 - 100 tablet PO TID 07/20/23 07/20/23 tablet iron,carbonyl 65 mg-vitamin C 125 1 tablet PO .every other day 07/20/23 07/20/23 mg tablet,delayed release terazosin 2 mg capsule 2 mg PO DAILY 07/20/23 07/20/23 Allergies Allergy/AdvReac Type Severity Reaction Status Date / Time prednisolone Allergy Severe Loss of Verified 07/17/23 12:41 Consciousness adhesive tape Allergy Unknown Not Verified 07/25/23 04:48 Entered,Unknown,Not Entered,Unknown atorvastatin Allergy Unknown Muscle Pain Verified 07/17/23 12:41 flecainide Allergy Unknown FACIAL Verified 07/17/23 12:41 NUMBNESS prednisone Allergy Unknown DIABETES,OSTEOPOROSIS, Verified 07/25/23 04:48 DECREASED IMMUNE SYS,Unknown,DIABETES Review of Systems Review of Systems: All systems reviewed & are unremarkable except as noted in HPI and below PMFSH Past Medical History Medical History (Updated 07/25/23 @ 06:51 by Karena Verdin MD) Abdominal aortic aneurysm Anemia in chronic kidney disease Aortic valve stenosis, acquired Status post TAVR. Arthritis Chronic anticoagulation Chronic atrial fibrillation, unspecified Chronic kidney disease, stage 4 (severe) Baseline creatinine is around 2.90. 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 Coronary artery disease involving [place] coronary artery of [place] heart Diabetic peripheral neuropathy Dyslipidemia Essential tremor Gout Hyperkalemia Hypertension, essential Loculated pleural effusion (07/2021) Neck mass Nephrolithiasis Parapneumonic effusion (07/2021) Status post chest tube and intrapleural tPA. Paroxysmal atrial fibrillation (12/21/18) Status post ablation. Gabby-rectal abscess Peripheral vascular disease of lower extremity Polymyalgia rheumatica Thyroid nodule Type 2 diabetes mellitus Ulcerative colitis Surgical History Surgical History History of cardiac catheterization History of cataract extraction History of colonoscopy with polypectomy History of heart artery stent History of incision and drainage I&D of left rectal abscess 09/05/[address] Betancur. History of partial colectomy History of transcatheter aortic valve replacement (TAVR) (04/2020) History of umbilical hernia repair History of vascular surgery Multiple lower extremity stents and femoral popliteal bypass. Four and 1 leg and 5 in the other. Family History Family History Sibling Patient's sist
--- NOTE | 2023-07-20 21:12 | PM.IMHP ---
H&P: HPI History of Present Illness Date/Time: 07/20/23 21:12 Chief Complaint: sob Narrative: This is an 88 yo male with PMHx significant for COPD, chronic hypoxic respiratory failure on 2 L of oxygen by [place], comes to ED due to worsening sob, now present with minimal exertion for several days, EXAMINATION:? XR chest 1V portable Exam Date/Time:? 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 Comparison:? 06/07/2023. RESULT: Lines, tubes, and devices:? Left chest pacer with intact leads. Bowel replacement. Right apical/axillary surgical clips. Lungs and pleura:? Moderate diffuse reticular opacities. Mild left and moderate right costophrenic angle blunting. Subsegmental bibasilar airspace disease. Cardiomediastinal silhouette:? Stable. Other:? No acute osseous or upper abdominal finding. ? IMPRESSION: Moderate interstitial edema. Subsegmental bibasilar atelectasis/consolidation. Moderate right and mild left pleural effusions. Review of Systems Review of Systems: sob, cough PMFSH Past Medical History Medical History (Updated 07/25/23 @ 15:01 by Christen Wilde APRN) Abdominal aortic aneurysm Anemia in chronic kidney disease Aortic valve stenosis, acquired Status post TAVR. Arthritis Chronic anticoagulation Chronic atrial fibrillation, unspecified Chronic kidney disease, stage 4 (severe) Baseline creatinine is around 2.90. 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 Coronary artery disease involving [place] coronary artery of [place] heart Diabetic peripheral neuropathy Dyslipidemia Essential tremor Gout Hyperkalemia Hypertension, essential Loculated pleural effusion (07/2021) Neck mass Nephrolithiasis Parapneumonic effusion (07/2021) Status post chest tube and intrapleural tPA. Paroxysmal atrial fibrillation (12/21/18) Status post ablation. Gabby-rectal abscess Peripheral vascular disease of lower extremity Polymyalgia rheumatica Thyroid nodule Type 2 diabetes mellitus Ulcerative colitis Surgical History Surgical History History of cardiac catheterization History of cataract extraction History of colonoscopy with polypectomy History of heart artery stent History of incision and drainage I&D of left rectal abscess 09/05/[address] Betancur. History of partial colectomy History of transcatheter aortic valve replacement (TAVR) (04/2020) History of umbilical hernia repair History of vascular surgery Multiple lower extremity stents and femoral popliteal bypass. Four and 1 leg and 5 in the other. Family History Family History Sibling Patient's sister is in good health Father Family history of malignant neoplasm of bone Family history of malignant neoplasm Patient's father is , Onset Age: 60 Metastatic bone cancer Mother Family history of coronary artery disease STEMI (ST elevation myocardial infarction) Hypertension Other Family history of arthritis Social History Social History Social History: Surrogate decision maker: Kristi Garcia, . Code status: Full code. Smoking packs per day: 1 Smoking cigarettes per day: 20.0 Years smoked: 50 Smoking pack-years: 50.00 Smoking status: Former smoker Second hand tobacco smoke exposure: No Alcohol intake: never Substance use: never Substance use type: does not use Do You Feel Safe in your Home?: Yes Lack of Transportation: No Lack of Food: Never True Current Housing: I Have Housing Concerned About Future Housing: No Difficulty Paying Gas/Electric Bills: No Difficulty Paying for Meds: No Currently Unemployed: No Education: High School Di
[2023-07-20] MEDS: ALBUTEROL SULFATE NEB 2.5 MG/3 ML INH 10 MG INHALATION (21:19)
[2023-07-20] MEDS: IPRATROPIUM BR 0.02% INH SOLN 0.5 MG/2.5 ML VIAL INHALATION (21:19)
[2023-07-20] MEDS: methylPREDNISolone SOD SUCC 125 MG VIAL IV PUSH (22:03)
[2023-07-20] MEDS: cefTRIAXone 2 GM/NS 100 ML 2 GM/100 ML BAG IVPB (22:06)
[2023-07-20] MEDS: SODIUM CHLORIDE 0.9% IV 500 ML 999 ML IV CONT (22:07)
[2023-07-20 22:39] LABS: Troponin I 0.034 ng/mL (0.000-0.034)
[2023-07-20] MEDS: AZITHROMYCIN 500 MG/NS 250 ML 500 MG/250 ML BAG 250 MG IVPB (22:51)
[2023-07-20] MEDS: methylPREDNISolone SOD SUCC 125 MG VIAL 60 MG IV PUSH (22:53)
--- NOTE | 2023-07-20 23:03 | ADMGEN ---
This patient, Cipriano Garcia, was admitted to Medical Room 346-01. Patient/family oriented to hospital policies and general routines including ID bracelet, bed and alarms, visiting hours, pain management, procedures, bathroom and other care routines, personal items, smoking policy, room service/diet, and visiting hours. Information on how to activate the Rapid Response Team has been discussed. Patient/Family are encouraged to report perceived risks to care and to ask questions if they do not understand what they are told or what they should do.
[2023-07-21] VITALS (23 sets, daily range): BP systolic 150–188; BP diastolic 47–65; PULSE 60–95; RESP 16–20; TEMP 36.4–36.7; O2SAT 90–95
[2023-07-21 01:50] LABS: Troponin I 0.035 ng/mL (0.000-0.034)
[2023-07-21] MEDS: methylPREDNISolone SOD SUCC 125 MG VIAL 60 MG IV PUSH ×3 (05:49→20:30)
[2023-07-21] MEDS: hydrALAZINE HCL 20 MG/ML VIAL 10 MG IV PUSH (06:34)
[2023-07-21 08:28] LABS: Basophils Percent Auto 0.2 % (0.2-1.2); Hematocrit 35.1 % (42.0-52.0); Hemoglobin 10.6 g/dL (14.0-18.0); Immature Granulocyte Absolute 0.02 K/mm3 (0.00-0.031); Immature Granulocyte Percent A 0.3 % (0-0.5); Lymphocytes Absolute Auto 0.22 K/mm3 (0.9-3.2); Lymphocytes Percent Auto 3.5 % (18.3-44.2); Mean Corpuscular HGB Conc 30.2 g/dl (32-36); Mean Corpuscular Hemoglobin 32.9 pg (26-34); Mean Platelet Volume 11.6 fl (7.4-10.4); Monocytes Percent Auto 0.6 % (2.6-8.5); Neutrophils Absolute Auto 6.1 K/mm3 (1.3-6.7); Neutrophils Percent Auto 95.4 % (45.5-73.1); Platelet Count Result 130 k/mm3 (150-375); Red Blood Count 3.22 M/mm3 (4.6-6.20); Red Cell Distribution Width 15.2 % (11.5-14.5); White Blood Count 6.3 K/mm3 (4.5-10.0)
[2023-07-21 08:35] LABS: Alanine Aminotransferase 12 U/L (6-50); Albumin Level 3.4 g/dL (3.5-5.1); Alkaline Phosphatase 147 U/L (38-126); Anion Gap 11 mmol/L (8-16); Aspartate Amino Transferase 19 U/L (17-59); Bilirubin,Total 0.7 mg/dL (0.2-1.3); Blood Urea Nitrogen 66 mg/dL (9-20); Calcium 9.2 mg/dL (8.4-10.2); Carbon Dioxide 19 mmol/L (22-30); Chloride 114 mmol/L (98-107); Estimated CRCL calculation 20 ml/min; Estimated Glomerular Filt Rate 27; Glucose 233 mg/dL (65-110); Magnesium 2.5 mg/dL (1.6-2.3); Potassium 5.8 mmol/L (3.4-5.0); Sodium 144 mmol/L (137-145)
[2023-07-21] MEDS: IPRATROPIUM BR 0.02% INH SOLN 0.5 MG/2.5 ML VIAL INHALATION ×3 (08:45→19:37)
[2023-07-21] MEDS: ALBUTEROL SULFATE NEB 2.5 MG/3 ML INH INHALATION ×4 (08:45→19:38)
[2023-07-21] MEDS: ISOSORBIDE MONONITRATE 60 MG TAB.ER.24H PO (09:20)
[2023-07-21] MEDS: hydrALAZINE HCL 25 MG TABLET PO ×4 (09:20→20:30)
[2023-07-21] MEDS: CARBIDOPA/LEVODOPA 25/100 MG TABLET 1 TABLET PO ×3 (09:20→16:48)
[2023-07-21] MEDS: GABAPENTIN 300 MG CAPSULE PO ×2 (09:20→16:48)
[2023-07-21] MEDS: RIVAROXABAN 15 MG TABLET PO (09:20)
[2023-07-21] MEDS: carvediloL 12.5 MG TABLET PO ×2 (09:21→20:30)
[2023-07-21] MEDS: TERAZOSIN HCL 1 MG CAPSULE 2 MG PO (09:21)
[2023-07-21] MEDS: SODIUM POLYSTYRENE SULFONONATE 15 GM/60 ML BTL PO (10:16)
[2023-07-21] MEDS: FUROSEMIDE INJ 40 MG/4 ML VIAL IV PUSH ×2 (10:16→16:48)
[2023-07-21] MEDS: TOPIRAMATE 25 MG TABLET PO ×2 (10:20→16:48)
[2023-07-21] MEDS: CALCIUM GLUC 1,000 MG/NS 50 ML 1,000 MG/50 ML BAG 100 MG IVPB (10:20)
--- NOTE | 2023-07-21 10:34 | PC.NURSE ---
RN spoke with patient's daughter Tri and gave update on patient's status and labs.
[2023-07-21] MEDS: FEBUXOSTAT 40 MG TABLET PO (11:19)
[2023-07-21] MEDS: HYDROcodone/acetaminophen (*CRX) 5-325 MG TABLET 1 TAB PO ×2 (11:28→23:20)
--- NOTE | 2023-07-21 12:45 | P.PNIM_ITS ---
Progress Note: A&P Assessment and Plan (1) Lung infiltrate: Code(s): R91.8 - Other nonspecific abnormal finding of lung field Status: Acute Assessment and Plan: * Continue IV abx and supportive care * Consider repeating CXR in 1-2 days. (2) Acute and chronic respiratory failure with hypoxia: Code(s): J96.21 - Acute and chronic respiratory failure with hypoxia Status: Acute Assessment and Plan: * Likely multifactorial with HF exacerbation and possible acute PNA. * Monitor and provide supplemental oxygen as needed. (3) Acute kidney injury superimposed on CKD: Code(s): N17.9 - Acute kidney failure, unspecified; N18.9 - Chronic kidney disease, unspecified Status: Acute Assessment and Plan: * Creatinine baseline is 1.8-2.0. * Today's creatinine is 2.3. * Avoid nephrotoxic meds as much as possible. * Pt will receive diuresis today based on CXR. * Monitor labs and VS. * Daily weight * Accurate I&O (4) Hyperkalemia: Code(s): E87.5 - Hyperkalemia Status: Acute Assessment and Plan: * 5.8 K+ today. * Lasix ordered * Calcium Gluconate 1G ordered * Telemetry ordered * STAT Albuterol neb ordered * Kayexalate ordered. * Recheck Potassium at 1300. (5) PATRICIA (obstructive sleep apnea): Code(s): G47.33 - Obstructive sleep apnea (adult) (pediatric) Status: Chronic Assessment and Plan: * May use home CPAP if available (6) Chronic obstructive pulmonary disease: Qualifiers: COPD type: COPD with acute lower respiratory infection Qualified Code(s): J44.0 - Chronic obstructive pulmonary disease with (acute) lower respiratory infection Code(s): J44.9 - Chronic obstructive pulmonary disease, unspecified Status: Chronic Assessment and Plan: * Supplemental respiratory support as needed. * Continue nebs. * Monitor (7) Pulmonary hypertension: Code(s): I27.20 - Pulmonary hypertension, unspecified Status: Chronic Assessment and Plan: * Secondary to his Heart Failure. * ECHO ordered for today to assess severity of heart failure. * Lasix ordered secondary to heart failure exacerbation as evidenced by CXR. (8) Combined systolic and diastolic congestive heart failure: Qualifiers: Heart failure chronicity: chronic Qualified Code(s): I50.42 - Chronic combined systolic (congestive) and diastolic (congestive) heart failure Code(s): I50.40 - Unspecified combined systolic (congestive) and diastolic (congestive) heart failure Status: Chronic Assessment and Plan: * As evidenced by CXR there is fluid in lungs. * Initiate Lasix * Accurate I&O * Daily weight * Check ECHO today. (9) Paroxysmal atrial fibrillation: Code(s): I48.0 - Paroxysmal atrial fibrillation Status: Chronic Assessment and Plan: * Rate controlled. Continue Carvedilol * Continue Xarelto * Telemetry (10) Spinal stenosis, lumbar region with neurogenic claudication: Code(s): M48.062 - Spinal stenosis, lumbar region with neurogenic claudication Status: Chronic Assessment and Plan: * Pain control as needed. * PT and OT eval. (11) Pacemaker: Code(s): Z95.0 - Presence of cardiac pacemaker Status: Chronic Assessment and Plan: * Noted. Time Spent With Patient Time with patient: 25 - 35 minutes Subjective Date/time seen: 07/21/23 1000 Interval history: This pt was examined at the bedside in interval assessment. He
--- NOTE | 2023-07-21 12:45 | PM.IMPN ---
Progress Note: A&P Assessment and Plan (1) Lung infiltrate: Code(s): R91.8 - Other nonspecific abnormal finding of lung field Status: Acute Assessment and Plan: Continue IV abx and supportive care Consider repeating CXR in 1-2 days. (2) Acute and chronic respiratory failure with hypoxia: Code(s): J96.21 - Acute and chronic respiratory failure with hypoxia Status: Acute Assessment and Plan: Likely multifactorial with HF exacerbation and possible acute PNA. Monitor and provide supplemental oxygen as needed. (3) Acute kidney injury superimposed on CKD: Code(s): N17.9 - Acute kidney failure, unspecified; N18.9 - Chronic kidney disease, unspecified Status: Acute Assessment and Plan: Creatinine baseline is 1.8-2.0. Today's creatinine is 2.3. Avoid nephrotoxic meds as much as possible. Pt will receive diuresis today based on CXR. Monitor labs and VS. Daily weight Accurate I&O (4) Hyperkalemia: Code(s): E87.5 - Hyperkalemia Status: Acute Assessment and Plan: 5.8 K+ today. Lasix ordered Calcium Gluconate 1G ordered Telemetry ordered STAT Albuterol neb ordered Kayexalate ordered. Recheck Potassium at 1300. (5) PATRICIA (obstructive sleep apnea): Code(s): G47.33 - Obstructive sleep apnea (adult) (pediatric) Status: Chronic Assessment and Plan: May use home CPAP if available (6) Chronic obstructive pulmonary disease: Qualifiers: COPD type: COPD with acute lower respiratory infection Qualified Code(s): J44.0 - Chronic obstructive pulmonary disease with (acute) lower respiratory infection Code(s): J44.9 - Chronic obstructive pulmonary disease, unspecified Status: Chronic Assessment and Plan: Supplemental respiratory support as needed. Continue nebs. Monitor (7) Pulmonary hypertension: Code(s): I27.20 - Pulmonary hypertension, unspecified Status: Chronic Assessment and Plan: Secondary to his Heart Failure. ECHO ordered for today to assess severity of heart failure. Lasix ordered secondary to heart failure exacerbation as evidenced by CXR. 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 Initiate Lasix Accurate I&O Daily weight Check ECHO today. (9) Paroxysmal atrial fibrillation: Code(s): I48.0 - Paroxysmal atrial fibrillation Status: Chronic Assessment and Plan: Rate controlled. Continue Carvedilol Continue Xarelto Telemetry (10) Spinal stenosis, lumbar region with neurogenic claudication: Code(s): M48.062 - Spinal stenosis, lumbar region with neurogenic claudication Status: Chronic Assessment and Plan: Pain control as needed. PT and OT eval. (11) Pacemaker: Code(s): Z95.0 - Presence of cardiac pacemaker Status: Chronic Assessment and Plan: Noted. Time Spent With Patient Time with patient: 25 - 35 minutes Subjective Date/time seen: 07/21/23 1000 Interval history: This pt was examined at the bedside in interval assessment. He does not feel well overall and states he feels weak. He denies any CP. He has no other acute complaints at this time. He is receiving nebulizer treatments, Rocephin and Azithromycin, and IV steroids. Today it is noted that he has Hyperkalemia at 5.8. Pt is ordered Kayexalate, Lasix 40 mg BID, Albuterol neb now and Calcium Gluconate 1G. He is placed on telemetry. CXR is indicative of Moderate interstitial edema with moderate right and mild left pleural effusions and subsegmental b
[2023-07-21 13:00] LABS: Potassium 5.5 mmol/L (3.4-5.0)
--- NOTE | 2023-07-21 15:18 | PCCARD ---
CANCEL ECHOCARDIOGRAM ORDERED 07/21/[address] JEREZ - JUST HAD ONE IN HIS OFFICE 07/17/23
[2023-07-21] MEDS: DEXTROSE 50% 25 GM/50 ML SYRINGE IV PUSH (15:48)
[2023-07-21] MEDS: INSULIN HUMAN REGULAR (*BKC) 100 UNITS/ML 10 UNITS IV PUSH (15:49)
[2023-07-21 16:48] LABS: Glucose Point of Care 348 mg/dl (65-105)
[2023-07-21 17:47] LABS: Glucose Point of Care 371 mg/dl (65-105)
[2023-07-21 18:13] LABS: Potassium 4.9 mmol/L (3.4-5.0)
[2023-07-21] MEDS: cefTRIAXone 2 GM/NS 100 ML 2 GM/100 ML BAG IVPB (20:31)
[2023-07-21] MEDS: AZITHROMYCIN 500 MG/NS 250 ML 500 MG/250 ML BAG 250 MG IVPB (20:32)
[2023-07-22] VITALS (21 sets, daily range): BP systolic 144–162; BP diastolic 50–70; PULSE 60–85; RESP 16–19; TEMP 36.3–36.9; O2SAT 90–95
[2023-07-22 00:38] LABS: Glucose Point of Care 336 mg/dl (65-105)
[2023-07-22] MEDS: IPRATROPIUM BR 0.02% INH SOLN 0.5 MG/2.5 ML VIAL INHALATION ×4 (01:12→20:04)
[2023-07-22] MEDS: ALBUTEROL SULFATE NEB 2.5 MG/3 ML INH INHALATION ×4 (01:12→20:04)
[2023-07-22] MEDS: methylPREDNISolone SOD SUCC 125 MG VIAL 60 MG IV PUSH ×3 (04:52→20:21)
[2023-07-22 04:56] LABS: Glucose Point of Care 258 mg/dl (65-105)
[2023-07-22 06:19] LABS: Hematocrit 31.3 % (42.0-52.0); Hemoglobin 9.5 g/dL (14.0-18.0); Mean Corpuscular HGB Conc 30.4 g/dl (32-36); Mean Corpuscular Hemoglobin 32.8 pg (26-34); Mean Corpuscular Volume 107.9 fl (80-100); Mean Platelet Volume 12.2 fl (7.4-10.4); Platelet Count Result 113 k/mm3 (150-375); White Blood Count 4.1 K/mm3 (4.5-10.0)
[2023-07-22 06:29] LABS: Alanine Aminotransferase 7 U/L (6-50); Albumin Level 3.1 g/dL (3.5-5.1); Alkaline Phosphatase 127 U/L (38-126); Anion Gap 11 mmol/L (8-16); Aspartate Amino Transferase 17 U/L (17-59); Bilirubin,Total 0.4 mg/dL (0.2-1.3); Blood Urea Nitrogen 75 mg/dL (9-20); Calcium 8.8 mg/dL (8.4-10.2); Carbon Dioxide 19 mmol/L (22-30); Chloride 107 mmol/L (98-107); Estimated CRCL calculation 19 ml/min; Estimated Glomerular Filt Rate 26; Glucose 272 mg/dL (65-110); Magnesium 2.5 mg/dL (1.6-2.3); Potassium 5.3 mmol/L (3.4-5.0); Sodium 137 mmol/L (137-145)
[2023-07-22 08:12] LABS: Glucose Point of Care 250 mg/dl (65-105)
[2023-07-22] MEDS: FEBUXOSTAT 40 MG TABLET PO (09:22)
[2023-07-22] MEDS: ISOSORBIDE MONONITRATE 60 MG TAB.ER.24H PO (09:22)
[2023-07-22] MEDS: TERAZOSIN HCL 1 MG CAPSULE 2 MG PO (09:22)
[2023-07-22] MEDS: RIVAROXABAN 15 MG TABLET PO (09:22)
[2023-07-22] MEDS: TOPIRAMATE 25 MG TABLET PO ×2 (09:22→17:17)
[2023-07-22] MEDS: GABAPENTIN 300 MG CAPSULE PO ×2 (09:22→17:17)
[2023-07-22] MEDS: carvediloL 12.5 MG TABLET PO ×2 (09:22→20:19)
[2023-07-22] MEDS: CARBIDOPA/LEVODOPA 25/100 MG TABLET 1 TABLET PO ×3 (09:23→17:20)
[2023-07-22] MEDS: hydrALAZINE HCL 25 MG TABLET PO ×4 (09:23→22:09)
[2023-07-22] MEDS: SODIUM POLYSTYRENE SULFONONATE 15 GM/60 ML BTL PO (09:25)
[2023-07-22 11:16] LABS: Glucose Point of Care 419 mg/dl (65-105)
[2023-07-22] MEDS: INSULIN ASPART (*BKC) 100 UNITS/ML SUB-Q ×3 (12:24→20:19)
--- NOTE | 2023-07-22 12:24 | PC.NURSE ---
RN spoke with Christen Alcantara (see provider communication assessment). Patient's blood sugar was elevated (see LABS). Hospitalist ordered a sliding scale for elevated blood sugar. Sliding scale reads for RN to call MD if sugar is greater than 400. Hospitalist was aware of sliding scale orders. Hospitalist ordered for RN to proceed with the 8 units of sliding scale. Recheck blood sugar in an hour and let her know the results.
[2023-07-22 13:28] LABS: Potassium 4.7 mmol/L (3.4-5.0)
[2023-07-22 14:12] LABS: Glucose Point of Care 401 mg/dl (65-105)
[2023-07-22] MEDS: INSULIN ASPART (*BKC) 100 UNITS/ML 10 UNITS SUB-Q (14:51)
--- NOTE | 2023-07-22 16:01 | P.PNIM_ITS ---
Progress Note: A&P Assessment and Plan (1) Lung infiltrate: Code(s): R91.8 - Other nonspecific abnormal finding of lung field Status: Acute Assessment and Plan: * Continue IV abx and supportive care * Plan to repeat CXR in am (2) Acute and chronic respiratory failure with hypoxia: Code(s): J96.21 - Acute and chronic respiratory failure with hypoxia Status: Acute Assessment and Plan: * Likely multifactorial with HF exacerbation and possible acute PNA. * supplemental oxygen as needed. * IV methylprednisone Q8 hours * treating for possible PNA - Rocephin and azithromycin (3) Acute kidney injury superimposed on CKD: Code(s): N17.9 - Acute kidney failure, unspecified; N18.9 - Chronic kidney disease, unspecified Status: Acute Assessment and Plan: * Creatinine baseline is 1.8-2.0. * Today's creatinine is 2.4. * will hold Lasix today, repeat CXR in am * Monitor labs and VS. * gentle IV hydration due to poor PO and low urine output * Daily weight * Accurate I&O (4) Hyperkalemia: Code(s): E87.5 - Hyperkalemia Status: Acute Assessment and Plan: * 5.2 K+ today. * Telemetry * Kayexalate ordered PO * Potassium recheck in pm was 4.7 * will continue to trend and monitor (5) PATRICIA (obstructive sleep apnea): Code(s): G47.33 - Obstructive sleep apnea (adult) (pediatric) Status: Chronic Assessment and Plan: * CPAP ordered (6) Chronic obstructive pulmonary disease: Qualifiers: COPD type: COPD with acute lower respiratory infection Qualified Code(s): J44.0 - Chronic obstructive pulmonary disease with (acute) lower respiratory infection Code(s): J44.9 - Chronic obstructive pulmonary disease, unspecified Status: Chronic Assessment and Plan: * Supplemental respiratory support as needed. * Continue nebs. * Monitor (7) Pulmonary hypertension: Code(s): I27.20 - Pulmonary hypertension, unspecified Status: Chronic Assessment and Plan: * Secondary to his Heart Failure. * ECHO previously done last week with Sirisha Oliveira, unable to find in chart? 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 * Resume Lasix when kidney function improving * Accurate I&O * Daily weight (9) Paroxysmal atrial fibrillation: Code(s): I48.0 - Paroxysmal atrial fibrillation Status: Chronic Assessment and Plan: * Rate controlled. Continue Carvedilol * Continue Xarelto * Telemetry (10) Spinal stenosis, lumbar region with neurogenic claudication: Code(s): M48.062 - Spinal stenosis, lumbar region with neurogenic claudication Status: Chronic Assessment and Plan: * Pain control as needed. * PT and OT eval. (11) Pacemaker: Code(s): Z95.0 - Presence of cardiac pacemaker Status: Chronic Assessment and Plan: * Noted. Subjective Date/time seen: 07/22/23 16:01 Interval history: Patient has no acute complaints at this time. He is receiving nebulizer treatments, Rocephin and Azithromycin, and IV st
--- NOTE | 2023-07-22 16:01 | PM.IMPN ---
Progress Note: A&P Assessment and Plan (1) Lung infiltrate: Code(s): R91.8 - Other nonspecific abnormal finding of lung field Status: Acute Assessment and Plan: Continue IV abx and supportive care Plan to repeat CXR in am (2) Acute and chronic respiratory failure with hypoxia: Code(s): J96.21 - Acute and chronic respiratory failure with hypoxia Status: Acute Assessment and Plan: Likely multifactorial with HF exacerbation and possible acute PNA. supplemental oxygen as needed. IV methylprednisone Q8 hours treating for possible PNA - Rocephin and azithromycin (3) Acute kidney injury superimposed on CKD: Code(s): N17.9 - Acute kidney failure, unspecified; N18.9 - Chronic kidney disease, unspecified Status: Acute Assessment and Plan: Creatinine baseline is 1.8-2.0. Today's creatinine is 2.4. will hold Lasix today, repeat CXR in am Monitor labs and VS. gentle IV hydration due to poor PO and low urine output Daily weight Accurate I&O (4) Hyperkalemia: Code(s): E87.5 - Hyperkalemia Status: Acute Assessment and Plan: 5.2 K+ today. Telemetry Kayexalate ordered PO Potassium recheck in pm was 4.7 will continue to trend and monitor (5) PATRICIA (obstructive sleep apnea): Code(s): G47.33 - Obstructive sleep apnea (adult) (pediatric) Status: Chronic Assessment and Plan: CPAP ordered (6) Chronic obstructive pulmonary disease: Qualifiers: COPD type: COPD with acute lower respiratory infection Qualified Code(s): J44.0 - Chronic obstructive pulmonary disease with (acute) lower respiratory infection Code(s): J44.9 - Chronic obstructive pulmonary disease, unspecified Status: Chronic Assessment and Plan: Supplemental respiratory support as needed. Continue nebs. Monitor (7) Pulmonary hypertension: Code(s): I27.20 - Pulmonary hypertension, unspecified Status: Chronic Assessment and Plan: Secondary to his Heart Failure. ECHO previously done last week with Sirisha Oliveira, unable to find in chart? 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 Resume Lasix when kidney function improving Accurate I&O Daily weight (9) Paroxysmal atrial fibrillation: Code(s): I48.0 - Paroxysmal atrial fibrillation Status: Chronic Assessment and Plan: Rate controlled. Continue Carvedilol Continue Xarelto Telemetry (10) Spinal stenosis, lumbar region with neurogenic claudication: Code(s): M48.062 - Spinal stenosis, lumbar region with neurogenic claudication Status: Chronic Assessment and Plan: Pain control as needed. PT and OT eval. (11) Pacemaker: Code(s): Z95.0 - Presence of cardiac pacemaker Status: Chronic Assessment and Plan: Noted. Subjective Date/time seen: 07/22/23 16:01 Interval history: Patient has no acute complaints at this time. He is receiving nebulizer treatments, Rocephin and Azithromycin, and IV steroids. He continues to have hyperkalemia at 5.2 this am. Will order Kayexalate. His kidney function continues to decline, and urine output is low. Possibly dehydrated but could be secondary to AB and diuresis. Will hold Lasix today. Infuse 1 bag at 50 ml/hr. BS have been quite elevated, high sliding scale has been initiated. Review of Systems Review of Systems: All systems reviewed & are unremarkable except as noted in HPI and below Exam Narrative: Constitu
[2023-07-22 16:39] LABS: Glucose Point of Care 362 mg/dl (65-105)
[2023-07-22] MEDS: SODIUM CHLORIDE 0.9% IV 1,000 ML 50 ML IV CONT (17:20)
[2023-07-22] MEDS: cefTRIAXone 2 GM/NS 100 ML 2 GM/100 ML BAG IVPB (20:20)
[2023-07-22] MEDS: AZITHROMYCIN 500 MG/NS 250 ML 500 MG/250 ML BAG 250 MG IVPB (20:20)
[2023-07-22 20:28] LABS: Glucose Point of Care 272 mg/dl (65-105)
[2023-07-22] MEDS: HYDROcodone/acetaminophen (*CRX) 5-325 MG TABLET 1 TAB PO (22:07)
[2023-07-23] VITALS (19 sets, daily range): BP systolic 158–179; BP diastolic 53–75; PULSE 60–78; RESP 16–20; TEMP 36.4–36.6; O2SAT 92–96
[2023-07-23] MEDS: IPRATROPIUM BR 0.02% INH SOLN 0.5 MG/2.5 ML VIAL INHALATION ×4 (02:28→20:55)
[2023-07-23] MEDS: ALBUTEROL SULFATE NEB 2.5 MG/3 ML INH INHALATION ×4 (02:28→20:55)
--- NOTE | 2023-07-23 02:31 | PCRCNOTE ---
patient refused use of hospital unit and stated that he does not use a home cpap/bipap unit.
[2023-07-23] MEDS: methylPREDNISolone SOD SUCC 125 MG VIAL 60 MG IV PUSH ×3 (05:30→20:00)
[2023-07-23 05:58] LABS: Hematocrit 31.4 % (42.0-52.0); Hemoglobin 9.4 g/dL (14.0-18.0); Immature Granulocyte Absolute 0.02 K/mm3 (0.00-0.031); Immature Granulocyte Percent A 0.5 % (0-0.5); Lymphocytes Absolute Auto 0.17 K/mm3 (0.9-3.2); Lymphocytes Percent Auto 3.8 % (18.3-44.2); Mean Corpuscular HGB Conc 29.9 g/dl (32-36); Mean Corpuscular Hemoglobin 32.4 pg (26-34); Mean Corpuscular Volume 108.3 fl (80-100); Mean Platelet Volume 12.1 fl (7.4-10.4); Monocytes Absolute Auto 0.1 K/mm3 (0.1-0.6); Monocytes Percent Auto 2.7 % (2.6-8.5); Neutrophils Absolute Auto 4.1 K/mm3 (1.3-6.7); Platelet Count Result 118 k/mm3 (150-375); Red Cell Distribution Width 14.8 % (11.5-14.5); White Blood Count 4.4 K/mm3 (4.5-10.0)
[2023-07-23 06:24] LABS: Anion Gap 9 mmol/L (8-16); Blood Urea Nitrogen 81 mg/dL (9-20); Calcium 8.8 mg/dL (8.4-10.2); Carbon Dioxide 21 mmol/L (22-30); Chloride 110 mmol/L (98-107); Estimated CRCL calculation 17 ml/min; Estimated Glomerular Filt Rate 24; Glucose 170 mg/dL (65-110); Potassium 5.1 mmol/L (3.4-5.0); Sodium 140 mmol/L (137-145)
[2023-07-23 08:06] LABS: Anisocytosis 1+ (NORMAL); Burr Cells 1+ (NORMAL); Ovalocytes 1+ (NORMAL); Platelet Estimate Decreased (Adequate); Schistocytes None Seen (NORMAL)
[2023-07-23 08:22] LABS: Glucose Point of Care 166 mg/dl (65-105)
[2023-07-23] MEDS: RIVAROXABAN 15 MG TABLET PO (08:43)
[2023-07-23] MEDS: ISOSORBIDE MONONITRATE 60 MG TAB.ER.24H PO (08:43)
[2023-07-23] MEDS: carvediloL 12.5 MG TABLET PO ×2 (08:43→20:01)
[2023-07-23] MEDS: CARBIDOPA/LEVODOPA 25/100 MG TABLET 1 TABLET PO ×3 (08:43→16:54)
[2023-07-23] MEDS: TOPIRAMATE 25 MG TABLET PO ×2 (08:43→16:54)
[2023-07-23] MEDS: GABAPENTIN 300 MG CAPSULE PO ×2 (08:43→16:54)
[2023-07-23] MEDS: TERAZOSIN HCL 1 MG CAPSULE 2 MG PO (08:44)
[2023-07-23] MEDS: FEBUXOSTAT 40 MG TABLET PO (08:44)
[2023-07-23] MEDS: hydrALAZINE HCL 25 MG TABLET PO ×4 (08:44→20:01)
[2023-07-23] MEDS: FUROSEMIDE INJ 40 MG/4 ML VIAL IV PUSH ×2 (10:35→16:54)
[2023-07-23 12:01] LABS: Glucose Point of Care 269 mg/dl (65-105)
[2023-07-23] MEDS: INSULIN ASPART (*BKC) 100 UNITS/ML SUB-Q ×3 (12:24→20:03)
--- NOTE | 2023-07-23 15:09 | P.PNIM_ITS ---
Progress Note: A&P Assessment and Plan (1) Lung infiltrate: Code(s): R91.8 - Other nonspecific abnormal finding of lung field Status: Acute Assessment and Plan: * Continue IV abx and supportive care * repeat CXR showed persistent bilateral airspace disease which may represent edema or pneumonia. Enlarging moderate bilateral pleural effusions. * resume Lasix BID (2) Acute and chronic respiratory failure with hypoxia: Code(s): J96.21 - Acute and chronic respiratory failure with hypoxia Status: Acute Assessment and Plan: * Likely multifactorial with HF exacerbation and possible acute PNA. * supplemental oxygen as needed. * IV methylprednisone Q8 hours * treating for possible PNA - Rocephin and azithromycin (3) Acute kidney injury superimposed on CKD: Code(s): N17.9 - Acute kidney failure, unspecified; N18.9 - Chronic kidney disease, unspecified Status: Acute Assessment and Plan: * Creatinine baseline is 1.8-2.0. * Today's creatinine is 2.6. * nephrology consulted - awaiting recommendations * Daily weight * Accurate I&O (4) Hyperkalemia: Code(s): E87.5 - Hyperkalemia Status: Acute Assessment and Plan: * 5.1 K+ today. * Telemetry * will continue to trend and monitor (5) PATRICIA (obstructive sleep apnea): Code(s): G47.33 - Obstructive sleep apnea (adult) (pediatric) Status: Chronic Assessment and Plan: * CPAP ordered (6) Chronic obstructive pulmonary disease: Qualifiers: COPD type: COPD with acute lower respiratory infection Qualified Code(s): J44.0 - Chronic obstructive pulmonary disease with (acute) lower respiratory infection Code(s): J44.9 - Chronic obstructive pulmonary disease, unspecified Status: Chronic Assessment and Plan: * Supplemental respiratory support as needed. * Continue nebs. * Monitor (7) Pulmonary hypertension: Code(s): I27.20 - Pulmonary hypertension, unspecified Status: Chronic Assessment and Plan: * Secondary to his Heart Failure. * ECHO previously done last week with Sirisha Oliveira, unable to find in chart? 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 * Resumed Lasix * Accurate I&O * Daily weight (9) Paroxysmal atrial fibrillation: Code(s): I48.0 - Paroxysmal atrial fibrillation Status: Chronic Assessment and Plan: * Rate controlled. Continue Carvedilol * Continue Xarelto * Telemetry (10) Spinal stenosis, lumbar region with neurogenic claudication: Code(s): M48.062 - Spinal stenosis, lumbar region with neurogenic claudication Status: Chronic Assessment and Plan: * Pain control as needed. * PT and OT eval. (11) Pacemaker: Code(s): Z95.0 - Presence of cardiac pacemaker Status: Chronic Assessment and Plan: * Noted. Subjective Date/time seen: 07/23/23 15:09 Interval history: Patient had trouble sleeping last night so his only complaint today is being tired. He is receiving nebulizer treatments, Rocephin and Azithromycin, and IV steroids. His kidney
--- NOTE | 2023-07-23 15:09 | PM.IMPN ---
Progress Note: A&P Assessment and Plan (1) Lung infiltrate: Code(s): R91.8 - Other nonspecific abnormal finding of lung field Status: Acute Assessment and Plan: Continue IV abx and supportive care repeat CXR showed persistent bilateral airspace disease which may represent edema or pneumonia. Enlarging moderate bilateral pleural effusions. resume Lasix BID (2) Acute and chronic respiratory failure with hypoxia: Code(s): J96.21 - Acute and chronic respiratory failure with hypoxia Status: Acute Assessment and Plan: Likely multifactorial with HF exacerbation and possible acute PNA. supplemental oxygen as needed. IV methylprednisone Q8 hours treating for possible PNA - Rocephin and azithromycin (3) Acute kidney injury superimposed on CKD: Code(s): N17.9 - Acute kidney failure, unspecified; N18.9 - Chronic kidney disease, unspecified Status: Acute Assessment and Plan: Creatinine baseline is 1.8-2.0. Today's creatinine is 2.6. nephrology consulted - awaiting recommendations Daily weight Accurate I&O (4) Hyperkalemia: Code(s): E87.5 - Hyperkalemia Status: Acute Assessment and Plan: 5.1 K+ today. Telemetry will continue to trend and monitor (5) PATRICIA (obstructive sleep apnea): Code(s): G47.33 - Obstructive sleep apnea (adult) (pediatric) Status: Chronic Assessment and Plan: CPAP ordered (6) Chronic obstructive pulmonary disease: Qualifiers: COPD type: COPD with acute lower respiratory infection Qualified Code(s): J44.0 - Chronic obstructive pulmonary disease with (acute) lower respiratory infection Code(s): J44.9 - Chronic obstructive pulmonary disease, unspecified Status: Chronic Assessment and Plan: Supplemental respiratory support as needed. Continue nebs. Monitor (7) Pulmonary hypertension: Code(s): I27.20 - Pulmonary hypertension, unspecified Status: Chronic Assessment and Plan: Secondary to his Heart Failure. ECHO previously done last week with Sirisha Oliveira, unable to find in chart? 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 Resumed Lasix Accurate I&O Daily weight (9) Paroxysmal atrial fibrillation: Code(s): I48.0 - Paroxysmal atrial fibrillation Status: Chronic Assessment and Plan: Rate controlled. Continue Carvedilol Continue Xarelto Telemetry (10) Spinal stenosis, lumbar region with neurogenic claudication: Code(s): M48.062 - Spinal stenosis, lumbar region with neurogenic claudication Status: Chronic Assessment and Plan: Pain control as needed. PT and OT eval. (11) Pacemaker: Code(s): Z95.0 - Presence of cardiac pacemaker Status: Chronic Assessment and Plan: Noted. Subjective Date/time seen: 07/23/23 15:09 Interval history: Patient had trouble sleeping last night so his only complaint today is being tired. He is receiving nebulizer treatments, Rocephin and Azithromycin, and IV steroids. His kidney function continues to decline, and urine output is low. Nephrology consulted for input, patient normally sees Ankur. Will await recommendations for inpatient management as trying to balance kidney function with managing CHF. Lasix BID restarted as CXR showed pleural effusions not improving. Will continue to monitor. Review of Systems Review of Systems: All systems reviewed & are unremarkable except as noted in HPI and below Exam Narrative: Kalpana
--- NOTE | 2023-07-23 15:35 | PM.CNNEP ---
Assessment and Plan Assessment and plan (1) RACHAEL (acute kidney injury): Code(s): N17.9 - Acute kidney failure, unspecified Status: Acute Assessment and Plan: due to necessity of diuretic therapy along with possible pneumonia creatinine only mildly elevated above baseline follow trend of repeat labs and UOP (2) Chronic kidney disease, stage 4 (severe): Code(s): N18.4 - Chronic kidney disease, stage 4 (severe) Status: Chronic Assessment and Plan: baseline creatinine seems to run ~ 2.0 - 2.5mg/dl in the last couple of years however, it has been as low 1.9 and as high as 2.7 in the past due to longstanding hypertension, extensive peripheral arterial/vascular disease, diabetes, obstructive sleep apnea and age-related change (3) Acute and chronic respiratory failure with hypoxia: Code(s): J96.21 - Acute and chronic respiratory failure with hypoxia Status: Acute Assessment and Plan: multifactorial: CHF exacerbation pulmonary hypertension COPD possible pneumonia follow respiratory status with current interventions (4) CHF (congestive heart failure): Code(s): I50.9 - Heart failure, unspecified Status: Acute Assessment and Plan: admisison imaging with fluid in lungs on diuretic therapy follow I/Os and daily weights (5) COPD (chronic obstructive pulmonary disease): Code(s): J44.9 - Chronic obstructive pulmonary disease, unspecified Status: Chronic Assessment and Plan: continue supplemental oxygen nebulizer treatments steroids follow respiratory status (6) Pneumonia: Qualifiers: Laterality: left Lung location: unspecified part of lung Pneumonia type: due to unspecified organism Qualified Code(s): J18.9 - Pneumonia, unspecified organism Code(s): J18.9 - Pneumonia, unspecified organism Status: Acute Assessment and Plan: questionable infiltration on admission imaging follow culture data on antibiotics (7) Paroxysmal atrial fibrillation: Code(s): I48.0 - Paroxysmal atrial fibrillation Status: Chronic Assessment and Plan: continue rate control strategy on anticoagulation I will continue to follow patient with you while he remains hospitalized and make further recommendations as needed. Thank you for allowing me to participate in the care of this patient. History of Present Illness Reason for Consult Consult date: 07/23/23 Reason for consult: acute renal failure (on chronic kidney disease versus chronic kidney disease) Chief Complaint Chief complaint: COPD exacerbation History of Present Illness Narrative: The patient is a 8-year-old male with an extensive past medical history as outlined below who presented to [facility] Emergency room with complaints of shortness of breath. The patient reports that for the last week prior to presentation to the ER he has been having shortness of breath that has been increasingly getting worse in association with productive cough. He normally is on 2 L of oxygen by nasal cannula at baseline but because of his symptoms, has had increase it to 3-4 L. Despite this increase in supplemental oxygen, he still feels short of breath and he reports that he is barely able to even ambulate to the bathroom from his bedroom for he gets out of breath and has to use his inhalers. He denies any chest pain dizziness or lightheadedness or for that matter overt fevers or chills. He does report some mild increase in lower extremity edema but he has been compliant with his diuretic therapy. Given these constellation of symptoms, he presented to the ER for further assessment. Workup and evaluation in the emergency room demonstrated the patient be hemodynamically stable with acceptable oxygenation on 4 L of supplemental oxygen. Routine blood test demonstrated a mild leukocytosis as well as an elevated BNP Along with a
[2023-07-23] MEDS: HYDROcodone/acetaminophen (*CRX) 5-325 MG TABLET 1 TAB PO (15:42)
[2023-07-23 17:55] LABS: Glucose Point of Care 276 mg/dl (65-105)
[2023-07-23] MEDS: cefTRIAXone 2 GM/NS 100 ML 2 GM/100 ML BAG IVPB (20:02)
[2023-07-23] MEDS: AZITHROMYCIN 500 MG/NS 250 ML 500 MG/250 ML BAG 250 MG IVPB (23:13)
[2023-07-23 23:43] LABS: Glucose Point of Care 320 mg/dl (65-105)
[2023-07-24] VITALS (9 sets, daily range): BP systolic 137–163; BP diastolic 74–83; PULSE 60–68; RESP 16–18; TEMP 36.1–36.3; O2SAT 95–97
[2023-07-24] MEDS: HYDROcodone/acetaminophen (*CRX) 5-325 MG TABLET 1 TAB PO ×3 (01:10→23:29)
[2023-07-24] MEDS: methylPREDNISolone SOD SUCC 125 MG VIAL 60 MG IV PUSH ×3 (06:15→20:48)
[2023-07-24 06:51] LABS: Hematocrit 33.8 % (42.0-52.0); Hemoglobin 10.2 g/dL (14.0-18.0); Immature Granulocyte Absolute 0.01 K/mm3 (0.00-0.031); Immature Granulocyte Percent A 0.3 % (0-0.5); Lymphocytes Absolute Auto 0.18 K/mm3 (0.9-3.2); Lymphocytes Percent Auto 4.6 % (18.3-44.2); Mean Corpuscular HGB Conc 30.2 g/dl (32-36); Mean Platelet Volume 11.7 fl (7.4-10.4); Monocytes Absolute Auto 0.1 K/mm3 (0.1-0.6); Monocytes Percent Auto 2.3 % (2.6-8.5); Neutrophils Absolute Auto 3.6 K/mm3 (1.3-6.7); Neutrophils Percent Auto 92.8 % (45.5-73.1); Platelet Count Result 121 k/mm3 (150-375); Red Blood Count 3.19 M/mm3 (4.6-6.20); Red Cell Distribution Width 14.5 % (11.5-14.5); White Blood Count 3.9 K/mm3 (4.5-10.0)
[2023-07-24 07:05] LABS: Alanine Aminotransferase 8 U/L (6-50); Alkaline Phosphatase 116 U/L (38-126); Anion Gap 9 mmol/L (8-16); Aspartate Amino Transferase 19 U/L (17-59); Bilirubin,Total 0.4 mg/dL (0.2-1.3); Blood Urea Nitrogen 87 mg/dL (9-20); Calcium 8.6 mg/dL (8.4-10.2); Carbon Dioxide 23 mmol/L (22-30); Chloride 109 mmol/L (98-107); Estimated CRCL calculation 17 ml/min; Estimated Glomerular Filt Rate 24; Glucose 208 mg/dL (65-110); Potassium 4.2 mmol/L (3.4-5.0); Sodium 141 mmol/L (137-145)
[2023-07-24 08:33] LABS: Anisocytosis 1+ (NORMAL); Burr Cells 1+ (NORMAL); Hypochromasia 1+ (NORMAL); Schistocytes Rare (NORMAL)
[2023-07-24] MEDS: ISOSORBIDE MONONITRATE 60 MG TAB.ER.24H PO (08:33)
[2023-07-24] MEDS: CARBIDOPA/LEVODOPA 25/100 MG TABLET 1 TABLET PO ×3 (08:33→17:44)
[2023-07-24] MEDS: TERAZOSIN HCL 1 MG CAPSULE 2 MG PO (08:33)
[2023-07-24] MEDS: FUROSEMIDE INJ 40 MG/4 ML VIAL IV PUSH ×2 (08:33→17:44)
[2023-07-24] MEDS: hydrALAZINE HCL 25 MG TABLET PO ×4 (08:33→20:49)
[2023-07-24] MEDS: FEBUXOSTAT 40 MG TABLET PO (08:33)
[2023-07-24] MEDS: RIVAROXABAN 15 MG TABLET PO (08:33)
[2023-07-24] MEDS: GABAPENTIN 300 MG CAPSULE PO ×2 (08:33→17:44)
[2023-07-24] MEDS: TOPIRAMATE 25 MG TABLET PO ×2 (08:33→17:50)
[2023-07-24] MEDS: carvediloL 12.5 MG TABLET PO ×2 (08:34→20:49)
[2023-07-24 09:10] LABS: Glucose Point of Care 201 mg/dl (65-105)
[2023-07-24] MEDS: INSULIN ASPART (*BKC) 100 UNITS/ML SUB-Q ×5 (09:56→20:50)
--- NOTE | 2023-07-24 11:02 | PCRCNOTE ---
Window of time for administration has passed. See next scheduled administration.
[2023-07-24] MEDS: IPRATROPIUM BR 0.02% INH SOLN 0.5 MG/2.5 ML VIAL INHALATION ×2 (11:46→19:50)
[2023-07-24] MEDS: ALBUTEROL SULFATE NEB 2.5 MG/3 ML INH INHALATION ×2 (11:46→19:50)
[2023-07-24 12:27] LABS: Glucose Point of Care 359 mg/dl (65-105)
--- NOTE | 2023-07-24 14:22 | PM.PNNEP ---
Progress Note: A&P Assessment and Plan (1) RACHAEL (acute kidney injury): Code(s): N17.9 - Acute kidney failure, unspecified Status: Acute Assessment and Plan: due to necessity of diuretic therapy along with possible pneumonia creatinine only mildly elevated above baseline follow trend of repeat labs and UOP (2) Chronic kidney disease, stage 4 (severe): Code(s): N18.4 - Chronic kidney disease, stage 4 (severe) Status: Chronic Assessment and Plan: baseline creatinine seems to run ~ 2.0 - 2.5mg/dl in the last couple of years however, it has been as low 1.9 and as high as 2.7 in the past due to longstanding hypertension, extensive peripheral arterial/vascular disease, diabetes, obstructive sleep apnea and age-related change (3) Acute and chronic respiratory failure with hypoxia: Code(s): J96.21 - Acute and chronic respiratory failure with hypoxia Status: Acute Assessment and Plan: multifactorial: CHF exacerbation pulmonary hypertension COPD possible pneumonia follow respiratory status with current interventions (4) CHF (congestive heart failure): Code(s): I50.9 - Heart failure, unspecified Status: Acute Assessment and Plan: admisison imaging with fluid in lungs on diuretic therapy follow I/Os and daily weights (5) COPD (chronic obstructive pulmonary disease): Code(s): J44.9 - Chronic obstructive pulmonary disease, unspecified Status: Chronic Assessment and Plan: continue supplemental oxygen nebulizer treatments steroids follow respiratory status (6) Pneumonia: Qualifiers: Laterality: left Lung location: unspecified part of lung Pneumonia type: due to unspecified organism Qualified Code(s): J18.9 - Pneumonia, unspecified organism Code(s): J18.9 - Pneumonia, unspecified organism Status: Acute Assessment and Plan: questionable infiltration on admission imaging follow culture data on antibiotics (7) Paroxysmal atrial fibrillation: Code(s): I48.0 - Paroxysmal atrial fibrillation Status: Chronic Assessment and Plan: continue rate control strategy on anticoagulation Will continue to follow. Subjective Date/time seen: 07/24/23 14:22 Interval history: Follow-up for acute kidney injury/acute renal failure on chronic kidney disease. He states he feels a bit better today in comparison to yesterday; renal function remains stable as well; no apparent distress noted; no issues/events overnight or earlier this morning. Exam Narrative: General: elderly male in NAD Heart: normal S1 and S2; no rub Lungs: coarse throughout and decreased at bases Abdomen: soft, nontender, nondistended, positive bowel sounds Extremities: no cyanosis or clubbing; mild chronic edema Skin: warm and dry Objective Data Vital Signs Vital Signs: Vital Signs Temp Pulse Resp BP Pulse Ox O2 Del Method O2 Flow Rate 07/24/23 13:48 97.3 F L 64 18 153/74 H 97 07/24/23 11:55 62 16 07/24/23 11:46 60 16 07/24/23 08:34 60 07/24/23 06:00 97.1 F L 63 18 137/82 96 07/23/23 22:00 97.5 F L 65 16 158/53 H 94 07/23/23 20:00 96 Nasal Cannula 3 07/23/23 21:01 65 16 07/23/23 20:58 68 93 Nasal Cannula 2 07/23/23 20:56 68 16 07/23/23 20:01 60 Intake/Output Intake/Output: Intake & Output 07/21/23 07/22/23 07/23/23 07/24/23 23:59 23:59 23:59 23:59 Intake Total 1770 1366 1580 480 Output Total 1300 1205 1525 1425 Balance 470 161 55 -945 Meds/Results Medications: Active Medications Generic Name Dose Route Start Last Admin Trade Name Freq PRN Reason Stop Dose Admin Hydrocodone Bitart/Acetaminophen 1 tab 07/21/23 01:45 07/24/23 13:23 Hydrocodone/Acetaminophen (*Crx) 5-325 Mg Tablet PO 1 tab Q8H PRN Administration pain 4-6 Albuterol 2.5 mg
--- NOTE | 2023-07-24 14:22 | P.PNNP_ITS ---
Progress Note: A&P Assessment and Plan (1) RACHAEL (acute kidney injury): Code(s): N17.9 - Acute kidney failure, unspecified Status: Acute Assessment and Plan: * due to necessity of diuretic therapy along with possible pneumonia * creatinine only mildly elevated above baseline * follow trend of repeat labs and UOP (2) Chronic kidney disease, stage 4 (severe): Code(s): N18.4 - Chronic kidney disease, stage 4 (severe) Status: Chronic Assessment and Plan: * baseline creatinine seems to run ~ 2.0 - 2.5mg/dl in the last couple of years * however, it has been as low 1.9 and as high as 2.7 in the past * due to longstanding hypertension, extensive peripheral arterial/vascular disease, diabetes, obstructive sleep apnea and age-related change (3) Acute and chronic respiratory failure with hypoxia: Code(s): J96.21 - Acute and chronic respiratory failure with hypoxia Status: Acute Assessment and Plan: * multifactorial: * CHF exacerbation * pulmonary hypertension * COPD * possible pneumonia * follow respiratory status with current interventions (4) CHF (congestive heart failure): Code(s): I50.9 - Heart failure, unspecified Status: Acute Assessment and Plan: * admisison imaging with fluid in lungs * on diuretic therapy * follow I/Os and daily weights (5) COPD (chronic obstructive pulmonary disease): Code(s): J44.9 - Chronic obstructive pulmonary disease, unspecified Status: Chronic Assessment and Plan: * continue supplemental oxygen * nebulizer treatments * steroids * follow respiratory status (6) Pneumonia: Qualifiers: Laterality: left Lung location: unspecified part of lung Pneumonia type: due to unspecified organism Qualified Code(s): J18.9 - Pneumonia, unspecified organism Code(s): J18.9 - Pneumonia, unspecified organism Status: Acute Assessment and Plan: * questionable infiltration on admission imaging * follow culture data * on antibiotics (7) Paroxysmal atrial fibrillation: Code(s): I48.0 - Paroxysmal atrial fibrillation Status: Chronic Assessment and Plan: * continue rate control strategy * on anticoagulation Will continue to follow. Subjective Date/time seen: 07/24/23 14:22 Interval history: Follow-up for acute kidney injury/acute renal failure on chronic kidney disease. He states he feels a bit better today in comparison to yesterday; renal function remains stable as well; no apparent distress noted; no issues/events overnight or earlier this morning. Exam Narrative: General: elderly male in NAD Heart: normal S1 and S2; no rub Lungs: coarse throughout and decreased at bases Abdomen: soft, nontender, nondistended, positive bowel sounds Extremities: no cyanosis or clubbing; mild chronic edema Skin: warm and dry Objective Data Vital Signs Vital Signs: Vital Signs Temp Pulse Resp BP Pulse Ox O2 Del Method O2 Flow Rate 07/24/23 13:48 97.3 F L 64 18 153/74 H 97 07/24/23 11:55 62 16 07/24/23 11:46 60 16 07/24/23 08:34 60 07/24/23 06:00 97.1 F L 63 18 137/82 96 07/23/23 22:00 97.5 F L 65 16 158/53 H 94 07/23/23 20:00 96 Nasal Cannula 3 07/23/23 21:01 65 16
--- NOTE | 2023-07-24 15:34 | P.PNIM_ITS ---
Progress Note: A&P Assessment and Plan (1) Lung infiltrate: Code(s): R91.8 - Other nonspecific abnormal finding of lung field Status: Acute Assessment and Plan: * Transitioned to PO Augmentin today * repeat CXR showed persistent bilateral airspace disease which may represent edema or pneumonia. Enlarging moderate bilateral pleural effusions. * continue Lasix BID (2) Acute and chronic respiratory failure with hypoxia: Code(s): J96.21 - Acute and chronic respiratory failure with hypoxia Status: Acute Assessment and Plan: * Likely multifactorial with HF exacerbation and possible acute PNA. * supplemental oxygen as needed. * IV methylprednisone Q8 hours (3) Acute kidney injury superimposed on CKD: Code(s): N17.9 - Acute kidney failure, unspecified; N18.9 - Chronic kidney disease, unspecified Status: Acute Assessment and Plan: * Creatinine baseline is 1.8-2.0. * Today's creatinine is 2.6. * nephrology consulted - no changes to plan needed at this time, likely will resolve post hospitalization * Daily weight * Accurate I&O (4) Hyperkalemia: Code(s): E87.5 - Hyperkalemia Status: Resolved Assessment and Plan: * Telemetry * will continue to trend and monitor (5) PATRICIA (obstructive sleep apnea): Code(s): G47.33 - Obstructive sleep apnea (adult) (pediatric) Status: Chronic Assessment and Plan: * CPAP ordered (6) Chronic obstructive pulmonary disease: Qualifiers: COPD type: COPD with acute lower respiratory infection Qualified Code(s): J44.0 - Chronic obstructive pulmonary disease with (acute) lower respiratory infection Code(s): J44.9 - Chronic obstructive pulmonary disease, unspecified Status: Chronic Assessment and Plan: * Supplemental respiratory support as needed. * Continue nebs. * Monitor (7) Pulmonary hypertension: Code(s): I27.20 - Pulmonary hypertension, unspecified Status: Chronic Assessment and Plan: * Secondary to his Heart Failure. * ECHO previously done last week with Sirisha Oliveira, unable to find in chart? 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 * Resumed Lasix * Accurate I&O * Daily weight (9) Paroxysmal atrial fibrillation: Code(s): I48.0 - Paroxysmal atrial fibrillation Status: Chronic Assessment and Plan: * Rate controlled. Continue Carvedilol * Continue Xarelto * Telemetry (10) Spinal stenosis, lumbar region with neurogenic claudication: Code(s): M48.062 - Spinal stenosis, lumbar region with neurogenic claudication Status: Chronic Assessment and Plan: * Pain control as needed. * PT and OT eval. (11) Pacemaker: Code(s): Z95.0 - Presence of cardiac pacemaker Status: Chronic Assessment and Plan: * Noted. Subjective Date/time seen: 07/24/23 15:34 Interval history: Patient reports he is feeling better today than yesterday. Transitioned to PO Augmentin today. His kidney function remained the same from yesterday, discussed with nephrology and no adjust
--- NOTE | 2023-07-24 15:34 | PM.IMPN ---
Progress Note: A&P Assessment and Plan (1) Lung infiltrate: Code(s): R91.8 - Other nonspecific abnormal finding of lung field Status: Acute Assessment and Plan: Transitioned to PO Augmentin today repeat CXR showed persistent bilateral airspace disease which may represent edema or pneumonia. Enlarging moderate bilateral pleural effusions. continue Lasix BID (2) Acute and chronic respiratory failure with hypoxia: Code(s): J96.21 - Acute and chronic respiratory failure with hypoxia Status: Acute Assessment and Plan: Likely multifactorial with HF exacerbation and possible acute PNA. supplemental oxygen as needed. IV methylprednisone Q8 hours (3) Acute kidney injury superimposed on CKD: Code(s): N17.9 - Acute kidney failure, unspecified; N18.9 - Chronic kidney disease, unspecified Status: Acute Assessment and Plan: Creatinine baseline is 1.8-2.0. Today's creatinine is 2.6. nephrology consulted - no changes to plan needed at this time, likely will resolve post hospitalization Daily weight Accurate I&O (4) Hyperkalemia: Code(s): E87.5 - Hyperkalemia Status: Resolved Assessment and Plan: Telemetry will continue to trend and monitor (5) PATRICIA (obstructive sleep apnea): Code(s): G47.33 - Obstructive sleep apnea (adult) (pediatric) Status: Chronic Assessment and Plan: CPAP ordered (6) Chronic obstructive pulmonary disease: Qualifiers: COPD type: COPD with acute lower respiratory infection Qualified Code(s): J44.0 - Chronic obstructive pulmonary disease with (acute) lower respiratory infection Code(s): J44.9 - Chronic obstructive pulmonary disease, unspecified Status: Chronic Assessment and Plan: Supplemental respiratory support as needed. Continue nebs. Monitor (7) Pulmonary hypertension: Code(s): I27.20 - Pulmonary hypertension, unspecified Status: Chronic Assessment and Plan: Secondary to his Heart Failure. ECHO previously done last week with Sirisha Oliveira, unable to find in chart? 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 Resumed Lasix Accurate I&O Daily weight (9) Paroxysmal atrial fibrillation: Code(s): I48.0 - Paroxysmal atrial fibrillation Status: Chronic Assessment and Plan: Rate controlled. Continue Carvedilol Continue Xarelto Telemetry (10) Spinal stenosis, lumbar region with neurogenic claudication: Code(s): M48.062 - Spinal stenosis, lumbar region with neurogenic claudication Status: Chronic Assessment and Plan: Pain control as needed. PT and OT eval. (11) Pacemaker: Code(s): Z95.0 - Presence of cardiac pacemaker Status: Chronic Assessment and Plan: Noted. Subjective Date/time seen: 07/24/23 15:34 Interval history: Patient reports he is feeling better today than yesterday. Transitioned to PO Augmentin today. His kidney function remained the same from yesterday, discussed with nephrology and no adjustments to POC need to be made at this time. US dopplers on RLE as there was increased edema from his baseline. No DVT present. Will continue to monitor. Review of Systems Review of Systems: All systems reviewed & are unremarkable except as noted in HPI and below Exam Narrative: Constitutional: Elderly, male in no acute distress HEENT: Atraumatic and normocephalic Eyes: PERRLA, EOMI Neck: Supple Respiratory: Lungs sounds present, but decreased poste
[2023-07-24 17:41] LABS: Glucose Point of Care 374 mg/dl (65-105)
[2023-07-24] MEDS: AMOXICILLIN/CLAVULANATE K 875-125 MG TAB 1 TABLET PO (20:49)
[2023-07-24] MEDS: AZITHROMYCIN 250 MG TABLET 500 MG PO (20:59)
[2023-07-24 23:47] LABS: Glucose Point of Care 402 mg/dl (65-105)
[2023-07-25] VITALS (13 sets, daily range): BP systolic 149–198; BP diastolic 73–84; PULSE 59–86; RESP 16–21; TEMP 36.3–36.8; O2SAT 91–100
[2023-07-25] MEDS: ALBUTEROL SULFATE NEB 2.5 MG/3 ML INH INHALATION ×3 (02:19→13:00)
[2023-07-25] MEDS: IPRATROPIUM BR 0.02% INH SOLN 0.5 MG/2.5 ML VIAL INHALATION ×3 (02:19→13:00)
[2023-07-25 05:09] LABS: Glucose Point of Care 264 mg/dl (65-105)
[2023-07-25] MEDS: methylPREDNISolone SOD SUCC 125 MG VIAL 60 MG IV PUSH (05:16)
[2023-07-25 05:47] LABS: Hematocrit 33.6 % (42.0-52.0); Hemoglobin 10.3 g/dL (14.0-18.0); Immature Granulocyte Absolute 0.02 K/mm3 (0.00-0.031); Immature Granulocyte Percent A 0.4 % (0-0.5); Lymphocytes Absolute Auto 0.12 K/mm3 (0.9-3.2); Lymphocytes Percent Auto 2.7 % (18.3-44.2); Mean Corpuscular HGB Conc 30.7 g/dl (32-36); Mean Corpuscular Hemoglobin 32.2 pg (26-34); Mean Platelet Volume 12.2 fl (7.4-10.4); Monocytes Absolute Auto 0.1 K/mm3 (0.1-0.6); Monocytes Percent Auto 2.9 % (2.6-8.5); Neutrophils Absolute Auto 4.3 K/mm3 (1.3-6.7); Platelet Count Result 121 k/mm3 (150-375); Red Cell Distribution Width 14.3 % (11.5-14.5); White Blood Count 4.5 K/mm3 (4.5-10.0)
[2023-07-25 05:55] LABS: Anion Gap 10 mmol/L (8-16); Blood Urea Nitrogen 90 mg/dL (9-20); Calcium 8.4 mg/dL (8.4-10.2); Carbon Dioxide 25 mmol/L (22-30); Chloride 109 mmol/L (98-107); Estimated CRCL calculation 19 ml/min; Estimated Glomerular Filt Rate 26; Glucose 219 mg/dL (65-110); Potassium 3.9 mmol/L (3.4-5.0); Sodium 144 mmol/L (137-145)
[2023-07-25 06:04] LABS: Anisocytosis 1+ (NORMAL); Hypochromasia 1+ (NORMAL); Ovalocytes 1+ (NORMAL); Schistocytes None Seen (NORMAL)
[2023-07-25] MEDS: HYDROcodone/acetaminophen (*CRX) 5-325 MG TABLET 1 TAB PO (08:23)
[2023-07-25] MEDS: FEBUXOSTAT 40 MG TABLET PO (08:25)
[2023-07-25] MEDS: AMOXICILLIN/CLAVULANATE K 875-125 MG TAB 1 TABLET PO ×2 (08:25→22:11)
[2023-07-25] MEDS: hydrALAZINE HCL 25 MG TABLET PO ×4 (08:25→22:12)
[2023-07-25] MEDS: ISOSORBIDE MONONITRATE 60 MG TAB.ER.24H PO (08:25)
[2023-07-25] MEDS: TERAZOSIN HCL 1 MG CAPSULE 2 MG PO (08:25)
[2023-07-25] MEDS: CARBIDOPA/LEVODOPA 25/100 MG TABLET 1 TABLET PO ×3 (08:25→16:58)
[2023-07-25] MEDS: RIVAROXABAN 15 MG TABLET PO (08:25)
[2023-07-25] MEDS: TOPIRAMATE 25 MG TABLET PO ×2 (08:26→16:58)
[2023-07-25] MEDS: GABAPENTIN 300 MG CAPSULE PO ×2 (08:26→16:58)
[2023-07-25] MEDS: FUROSEMIDE INJ 40 MG/4 ML VIAL IV PUSH ×2 (08:26→16:58)
[2023-07-25] MEDS: carvediloL 12.5 MG TABLET PO ×2 (08:26→22:12)
[2023-07-25 08:34] LABS: Glucose Point of Care 270 mg/dl (65-105)
[2023-07-25] MEDS: INSULIN ASPART (*BKC) 100 UNITS/ML SUB-Q ×3 (08:54→22:13)
--- NOTE | 2023-07-25 11:01 | PM.PNNEP ---
Progress Note: A&P Assessment and Plan (1) RACHAEL (acute kidney injury): Code(s): N17.9 - Acute kidney failure, unspecified Status: Acute Assessment and Plan: due to necessity of diuretic therapy along with possible pneumonia creatinine closer to baseline by recent testing follow trend of repeat labs and UOP (2) Chronic kidney disease, stage 4 (severe): Code(s): N18.4 - Chronic kidney disease, stage 4 (severe) Status: Chronic Assessment and Plan: baseline creatinine seems to run ~ 2.0 - 2.5mg/dl in the last couple of years however, it has been as low 1.9 and as high as 2.7 in the past due to longstanding hypertension, extensive peripheral arterial/vascular disease, diabetes, obstructive sleep apnea and age-related change (3) Acute and chronic respiratory failure with hypoxia: Code(s): J96.21 - Acute and chronic respiratory failure with hypoxia Status: Acute Assessment and Plan: multifactorial: CHF exacerbation pulmonary hypertension COPD possible pneumonia follow respiratory status with current interventions (4) CHF (congestive heart failure): Code(s): I50.9 - Heart failure, unspecified Status: Acute Assessment and Plan: admisison imaging with fluid in lungs on diuretic therapy follow I/Os and daily weights (5) COPD (chronic obstructive pulmonary disease): Code(s): J44.9 - Chronic obstructive pulmonary disease, unspecified Status: Chronic Assessment and Plan: continue supplemental oxygen nebulizer treatments steroids follow respiratory status (6) Pneumonia: Qualifiers: Laterality: left Lung location: unspecified part of lung Pneumonia type: due to unspecified organism Qualified Code(s): J18.9 - Pneumonia, unspecified organism Code(s): J18.9 - Pneumonia, unspecified organism Status: Acute Assessment and Plan: questionable infiltration on admission imaging follow culture data on antibiotics (7) Paroxysmal atrial fibrillation: Code(s): I48.0 - Paroxysmal atrial fibrillation Status: Chronic Assessment and Plan: continue rate control strategy on anticoagulation Will continue to follow. Subjective Date/time seen: 07/25/23 11:01 Interval history: Follow-up for acute kidney injury/acute renal failure on chronic kidney disease. Renal function appears relatively stable if not better by AM labs; states he feels about the same -- no worse but no better; no other issues/events overnight or earlier this morning; noted more erratic blood sugars but this is thought to be secondary to ongoing steroid use. Exam Narrative: General: elderly male in NAD Heart: normal S1 and S2; no rub Lungs: coarse throughout and decreased at bases Abdomen: soft, nontender, nondistended, positive bowel sounds Extremities: no cyanosis or clubbing; mild chronic edema Skin: warm and intact Objective Data Vital Signs Vital Signs: Vital Signs Temp Pulse Resp BP Pulse Ox O2 Del Method O2 Flow Rate 07/25/23 11:00 59 L 20 07/25/23 08:53 91 Nasal Cannula 2 07/25/23 08:26 60 07/25/23 07:58 60 20 07/25/23 07:47 65 20 07/25/23 07:47 91 Nasal Cannula 2 07/25/23 06:00 97.5 F L 59 L 16 160/75 H 95 07/25/23 02:27 68 16 07/25/23 02:19 63 16 07/24/23 22:00 97.0 F L 63 16 163/83 H 95 07/24/23 20:05 65 16 07/24/23 19:53 68 16 07/24/23 19:52 96 Nasal Cannula 3 Intake/Output Intake/Output: Intake & Output 07/22/23 07/23/23 07/24/23 07/25/23 23:59 23:59 23:59 23:59 Intake Total 1366 5255 248 9072 Output Total 1205 1525 1875 675 Balance 161 55 -1155 445 Meds/Results Medications: Active Medications Generic Name Dose Route Start Last Admin Trade Name Freq PRN Reason Stop Dose Admin Hydrocodone Bitart/Acetaminophen 1 tab 01
--- NOTE | 2023-07-25 11:01 | P.PNNP_ITS ---
Progress Note: A&P Assessment and Plan (1) RCAHAEL (acute kidney injury): Code(s): N17.9 - Acute kidney failure, unspecified Status: Acute Assessment and Plan: * due to necessity of diuretic therapy along with possible pneumonia * creatinine closer to baseline by recent testing * follow trend of repeat labs and UOP (2) Chronic kidney disease, stage 4 (severe): Code(s): N18.4 - Chronic kidney disease, stage 4 (severe) Status: Chronic Assessment and Plan: * baseline creatinine seems to run ~ 2.0 - 2.5mg/dl in the last couple of years * however, it has been as low 1.9 and as high as 2.7 in the past * due to longstanding hypertension, extensive peripheral arterial/vascular disease, diabetes, obstructive sleep apnea and age-related change (3) Acute and chronic respiratory failure with hypoxia: Code(s): J96.21 - Acute and chronic respiratory failure with hypoxia Status: Acute Assessment and Plan: * multifactorial: * CHF exacerbation * pulmonary hypertension * COPD * possible pneumonia * follow respiratory status with current interventions (4) CHF (congestive heart failure): Code(s): I50.9 - Heart failure, unspecified Status: Acute Assessment and Plan: * admisison imaging with fluid in lungs * on diuretic therapy * follow I/Os and daily weights (5) COPD (chronic obstructive pulmonary disease): Code(s): J44.9 - Chronic obstructive pulmonary disease, unspecified Status: Chronic Assessment and Plan: * continue supplemental oxygen * nebulizer treatments * steroids * follow respiratory status (6) Pneumonia: Qualifiers: Laterality: left Lung location: unspecified part of lung Pneumonia type: due to unspecified organism Qualified Code(s): J18.9 - Pneumonia, unspecified organism Code(s): J18.9 - Pneumonia, unspecified organism Status: Acute Assessment and Plan: * questionable infiltration on admission imaging * follow culture data * on antibiotics (7) Paroxysmal atrial fibrillation: Code(s): I48.0 - Paroxysmal atrial fibrillation Status: Chronic Assessment and Plan: * continue rate control strategy * on anticoagulation Will continue to follow. Subjective Date/time seen: 07/25/23 11:01 Interval history: Follow-up for acute kidney injury/acute renal failure on chronic kidney disease. Renal function appears relatively stable if not better by AM labs; states he feels about the same -- no worse but no better; no other issues/events overnight or earlier this morning; noted more erratic blood sugars but this is thought to be secondary to ongoing steroid use. Exam Narrative: General: elderly male in NAD Heart: normal S1 and S2; no rub Lungs: coarse throughout and decreased at bases Abdomen: soft, nontender, nondistended, positive bowel sounds Extremities: no cyanosis or clubbing; mild chronic edema Skin: warm and intact Objective Data Vital Signs Vital Signs: Vital Signs Temp Pulse Resp BP Pulse Ox O2 Del Method O2 Flow Rate 07/25/23 11:00 59 L 20 07/25/23 08:53 91 Nasal Cannula 2 07/25/23 08:26 60 07/25/23 07:58 60 20 07/25/23 07:47 65 20 07/25/23 07:47 91 Nasal Cannula 2 07/25/23 06:00 97.5 F L 5
[2023-07-25 12:12] LABS: Glucose Point of Care 414 mg/dl (65-105)
[2023-07-25] MEDS: INSULIN ASPART (*BKC) 100 UNITS/ML 12 UNITS SUB-Q (12:23)
[2023-07-25] MEDS: guaiFENesin 12 HR 600 MG TABCR PO (12:27)
[2023-07-25 14:15] LABS: Glucose Point of Care 463 mg/dl (65-105)
[2023-07-25] MEDS: INSULIN ASPART (*BKC) 100 UNITS/ML 15 UNITS SUB-Q (14:54)
--- NOTE | 2023-07-25 14:54 | P.PNIM_ITS ---
Progress Note: A&P Assessment and Plan (1) Lung infiltrate: Code(s): R91.8 - Other nonspecific abnormal finding of lung field Status: Acute Assessment and Plan: * Transitioned to PO Augmentin * repeat CXR showed persistent bilateral airspace disease which may represent edema or pneumonia. Enlarging moderate bilateral pleural effusions. * continue Lasix BID (2) Acute and chronic respiratory failure with hypoxia: Code(s): J96.21 - Acute and chronic respiratory failure with hypoxia Status: Acute Assessment and Plan: * Likely multifactorial with HF exacerbation and possible acute PNA. * supplemental oxygen as needed - currently on 2L * transitioned to daily dexamethasone from IV (3) Acute kidney injury superimposed on CKD: Code(s): N17.9 - Acute kidney failure, unspecified; N18.9 - Chronic kidney disease, unspecified Status: Acute Assessment and Plan: * Creatinine baseline is 1.8-2.0. * Today's creatinine is 2.4. * nephrology consulted - no changes to plan needed at this time, likely will resolve post hospitalization * Daily weight * Accurate I&O (4) Hyperkalemia: Code(s): E87.5 - Hyperkalemia Status: Resolved Assessment and Plan: * Telemetry * will continue to trend and monitor (5) PATRICIA (obstructive sleep apnea): Code(s): G47.33 - Obstructive sleep apnea (adult) (pediatric) Status: Chronic Assessment and Plan: * CPAP ordered (6) Chronic obstructive pulmonary disease: Qualifiers: COPD type: COPD with acute lower respiratory infection Qualified Code(s): J44.0 - Chronic obstructive pulmonary disease with (acute) lower respiratory infection Code(s): J44.9 - Chronic obstructive pulmonary disease, unspecified Status: Chronic Assessment and Plan: * Supplemental respiratory support as needed. * Continue nebs. * Monitor (7) Pulmonary hypertension: Code(s): I27.20 - Pulmonary hypertension, unspecified Status: Chronic Assessment and Plan: * Secondary to his Heart Failure. * ECHO previously done last week with Sirisha Oliveira, unable to find in chart? 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 * Resumed Lasix * Accurate I&O * Daily weight (9) Paroxysmal atrial fibrillation: Code(s): I48.0 - Paroxysmal atrial fibrillation Status: Chronic Assessment and Plan: * Rate controlled. Continue Carvedilol * Continue Xarelto * Telemetry (10) Spinal stenosis, lumbar region with neurogenic claudication: Code(s): M48.062 - Spinal stenosis, lumbar region with neurogenic claudication Status: Chronic Assessment and Plan: * Pain control as needed. * PT and OT eval. (11) Pacemaker: Code(s): Z95.0 - Presence of cardiac pacemaker Status: Chronic Assessment and Plan: * Noted. 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
--- NOTE | 2023-07-25 14:54 | PM.IMPN ---
Progress Note: A&P Assessment and Plan (1) Lung infiltrate: Code(s): R91.8 - Other nonspecific abnormal finding of lung field Status: Acute Assessment and Plan: Transitioned to PO Augmentin repeat CXR showed persistent bilateral airspace disease which may represent edema or pneumonia. Enlarging moderate bilateral pleural effusions. continue Lasix BID (2) Acute and chronic respiratory failure with hypoxia: Code(s): J96.21 - Acute and chronic respiratory failure with hypoxia Status: Acute Assessment and Plan: Likely multifactorial with HF exacerbation and possible acute PNA. supplemental oxygen as needed - currently on 2L transitioned to daily dexamethasone from IV (3) Acute kidney injury superimposed on CKD: Code(s): N17.9 - Acute kidney failure, unspecified; N18.9 - Chronic kidney disease, unspecified Status: Acute Assessment and Plan: Creatinine baseline is 1.8-2.0. Today's creatinine is 2.4. nephrology consulted - no changes to plan needed at this time, likely will resolve post hospitalization Daily weight Accurate I&O (4) Hyperkalemia: Code(s): E87.5 - Hyperkalemia Status: Resolved Assessment and Plan: Telemetry will continue to trend and monitor (5) PATRICIA (obstructive sleep apnea): Code(s): G47.33 - Obstructive sleep apnea (adult) (pediatric) Status: Chronic Assessment and Plan: CPAP ordered (6) Chronic obstructive pulmonary disease: Qualifiers: COPD type: COPD with acute lower respiratory infection Qualified Code(s): J44.0 - Chronic obstructive pulmonary disease with (acute) lower respiratory infection Code(s): J44.9 - Chronic obstructive pulmonary disease, unspecified Status: Chronic Assessment and Plan: Supplemental respiratory support as needed. Continue nebs. Monitor (7) Pulmonary hypertension: Code(s): I27.20 - Pulmonary hypertension, unspecified Status: Chronic Assessment and Plan: Secondary to his Heart Failure. ECHO previously done last week with Sirisha Oliveira, unable to find in chart? 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 Resumed Lasix Accurate I&O Daily weight (9) Paroxysmal atrial fibrillation: Code(s): I48.0 - Paroxysmal atrial fibrillation Status: Chronic Assessment and Plan: Rate controlled. Continue Carvedilol Continue Xarelto Telemetry (10) Spinal stenosis, lumbar region with neurogenic claudication: Code(s): M48.062 - Spinal stenosis, lumbar region with neurogenic claudication Status: Chronic Assessment and Plan: Pain control as needed. PT and OT eval. (11) Pacemaker: Code(s): Z95.0 - Presence of cardiac pacemaker Status: Chronic Assessment and Plan: Noted. 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
[2023-07-25 17:34] LABS: Glucose Point of Care 305 mg/dl (65-105)
[2023-07-25] MEDS: IPRATROPIUM 0.5 MG/ALBUTEROL SULFATE 2.5 MG AMPUL.NEB 3 ML INHALATION (20:33)
[2023-07-25 21:24] LABS: Glucose Point of Care 291 mg/dl (65-105)
--- NOTE | 2023-07-25 22:00 | PC.NURSE ---
THIS NURSE AWARE OF ELEVATED BP. EVENING CARVEDILOL & HYDRALAZINE SCHEDULED AND ADMINISTERED.
[2023-07-25] MEDS: INSULIN GLARGINE (*BKC) 100 UNITS/ML 11 UNITS SUB-Q (22:12)
[2023-07-26] VITALS (16 sets, daily range): BP systolic 150–195; BP diastolic 70–81; PULSE 54–79; RESP 16–20; TEMP 36.1–36.6; O2SAT 95–100
[2023-07-26] MEDS: HYDROcodone/acetaminophen (*CRX) 5-325 MG TABLET 1 TAB PO (01:54)
[2023-07-26] MEDS: IPRATROPIUM 0.5 MG/ALBUTEROL SULFATE 2.5 MG AMPUL.NEB 3 ML INHALATION ×4 (02:44→20:58)
[2023-07-26 06:27] LABS: Basophils Percent Auto 0.1 % (0.2-1.2); Hematocrit 35.6 % (42.0-52.0); Hemoglobin 11.1 g/dL (14.0-18.0); Immature Granulocyte Absolute 0.04 K/mm3 (0.00-0.031); Immature Granulocyte Percent A 0.5 % (0-0.5); Lymphocytes Absolute Auto 0.18 K/mm3 (0.9-3.2); Lymphocytes Percent Auto 2.3 % (18.3-44.2); Mean Corpuscular HGB Conc 31.2 g/dl (32-36); Mean Corpuscular Hemoglobin 32.7 pg (26-34); Mean Platelet Volume 12.7 fl (7.4-10.4); Monocytes Absolute Auto 0.6 K/mm3 (0.1-0.6); Monocytes Percent Auto 7.2 % (2.6-8.5); Neutrophils Percent Auto 89.9 % (45.5-73.1); Platelet Count Result 117 k/mm3 (150-375); Red Blood Count 3.39 M/mm3 (4.6-6.20); Red Cell Distribution Width 14.1 % (11.5-14.5); White Blood Count 7.8 K/mm3 (4.5-10.0)
[2023-07-26 06:37] LABS: Anion Gap 9 mmol/L (8-16); Blood Urea Nitrogen 91 mg/dL (9-20); Carbon Dioxide 26 mmol/L (22-30); Chloride 106 mmol/L (98-107); Estimated CRCL calculation 20 ml/min; Estimated Glomerular Filt Rate 27; Glucose 180 mg/dL (65-110); Potassium 3.3 mmol/L (3.4-5.0); Sodium 141 mmol/L (137-145)
[2023-07-26 06:49] LABS: Hemoglobin A1C 7.4 % (<5.7)
[2023-07-26 07:33] LABS: Anisocytosis 1+ (NORMAL); Hypochromasia 1+ (NORMAL); Ovalocytes 1+ (NORMAL); Platelet Estimate Decreased (Adequate); Schistocytes None Seen (NORMAL)
[2023-07-26 07:55] LABS: Glucose Point of Care 160 mg/dl (65-105)
[2023-07-26] MEDS: carvediloL 12.5 MG TABLET PO ×2 (09:44→20:48)
[2023-07-26] MEDS: hydrALAZINE HCL 25 MG TABLET PO ×4 (09:44→20:47)
[2023-07-26] MEDS: TERAZOSIN HCL 1 MG CAPSULE 2 MG PO (09:44)
[2023-07-26] MEDS: ISOSORBIDE MONONITRATE 60 MG TAB.ER.24H PO (09:44)
[2023-07-26] MEDS: GABAPENTIN 300 MG CAPSULE PO ×2 (09:44→17:58)
[2023-07-26] MEDS: TOPIRAMATE 25 MG TABLET PO ×2 (09:44→17:59)
[2023-07-26] MEDS: guaiFENesin 12 HR 600 MG TABCR PO ×2 (09:44→21:45)
[2023-07-26] MEDS: AMOXICILLIN/CLAVULANATE K 875-125 MG TAB 1 TABLET PO ×2 (09:46→20:48)
[2023-07-26] MEDS: RIVAROXABAN 15 MG TABLET PO (09:46)
[2023-07-26] MEDS: CARBIDOPA/LEVODOPA 25/100 MG TABLET 1 TABLET PO ×3 (09:46→17:58)
[2023-07-26] MEDS: FEBUXOSTAT 40 MG TABLET PO (09:46)
[2023-07-26] MEDS: DEXAMETHASONE 4 MG TABLET PO (09:46)
[2023-07-26] MEDS: FUROSEMIDE INJ 40 MG/4 ML VIAL IV PUSH ×2 (09:48→17:59)
--- NOTE | 2023-07-26 10:09 | P.PNNP_ITS ---
Progress Note: A&P Assessment and Plan (1) RACHAEL (acute kidney injury): Code(s): N17.9 - Acute kidney failure, unspecified Status: Acute Assessment and Plan: * creatinine was a little bit higher than baseline when he came in. * Creatinine seems to have improved to baseline now. (2) Chronic kidney disease, stage 4 (severe): Code(s): N18.4 - Chronic kidney disease, stage 4 (severe) Status: Chronic Assessment and Plan: * baseline creatinine seems to run ~ 2.0 - 2.5mg/dl in the last couple of years * however, it has been as low 1.9 and as high as 2.7 in the past * due to longstanding hypertension, extensive peripheral arterial/vascular disease, diabetes, obstructive sleep apnea and age-related change (3) Acute and chronic respiratory failure with hypoxia: Code(s): J96.21 - Acute and chronic respiratory failure with hypoxia Status: Acute Assessment and Plan: * multifactorial: * CHF exacerbation * pulmonary hypertension * COPD * possible pneumonia * The patient is getting antibiotics. * He is getting diuretics. Intake/ output is negative. * He is getting inhalers , steroids, and supportive care for his COPD. * he says he feels a little bit better. (4) CHF (congestive heart failure): Code(s): I50.9 - Heart failure, unspecified Status: Acute Assessment and Plan: * admisison imaging with fluid in lungs * on diuretic therapy * follow I/Os and daily weights (5) COPD (chronic obstructive pulmonary disease): Code(s): J44.9 - Chronic obstructive pulmonary disease, unspecified Status: Chronic Assessment and Plan: * continue supplemental oxygen * nebulizer treatments * steroids * As above (6) Pneumonia: Qualifiers: Laterality: left Lung location: unspecified part of lung Pneumonia type: due to unspecified organism Qualified Code(s): J18.9 - Pneumonia, unspecified organism Code(s): J18.9 - Pneumonia, unspecified organism Status: Acute Assessment and Plan: * questionable infiltration on admission imaging * follow culture data * on antibiotics (7) Paroxysmal atrial fibrillation: Code(s): I48.0 - Paroxysmal atrial fibrillation Status: Chronic Assessment and Plan: * heart rate doing well at 64. * He is on rivaroxaban Will continue to follow. Subjective Date/time seen: 07/26/23 10:09 Interval history: patient feels a little better. He still has a cough but it is better. He has some shortness of breath. He does have chronic shortness of breath as well and is on oxygen at home. his breathing is better quite to its baseline. Eating well Exam Narrative: General: elderly male in NAD Heart: normal S1 and S2; no rub or gallop Lungs: Fairly good air movement on the left. Decreased breath sounds at the right base and dullness to percussion. Abdomen: soft, nontender, nondistended, positive bowel sounds Extremities: no cyanosis or clubbing; mild chronic edema Skin: no rash Objective Data Vital Signs Vital Signs: Vital Signs - 24 hr 07/25/23 13:00 07/25/23 13:10 07/25/23 14:00 Temperature 98.2 F Pulse Rate 59 L 65 60 Respiratory Rate 20 20 16 Blood Pressure 149/84 H Pulse Oximetry 96 Oxygen Delivery Oxygen Flow Rate
--- NOTE | 2023-07-26 10:09 | PM.PNNEP ---
Progress Note: A&P Assessment and Plan (1) RACHAEL (acute kidney injury): Code(s): N17.9 - Acute kidney failure, unspecified Status: Acute Assessment and Plan: creatinine was a little bit higher than baseline when he came in. Creatinine seems to have improved to baseline now. (2) Chronic kidney disease, stage 4 (severe): Code(s): N18.4 - Chronic kidney disease, stage 4 (severe) Status: Chronic Assessment and Plan: baseline creatinine seems to run ~ 2.0 - 2.5mg/dl in the last couple of years however, it has been as low 1.9 and as high as 2.7 in the past due to longstanding hypertension, extensive peripheral arterial/vascular disease, diabetes, obstructive sleep apnea and age-related change (3) Acute and chronic respiratory failure with hypoxia: Code(s): J96.21 - Acute and chronic respiratory failure with hypoxia Status: Acute Assessment and Plan: multifactorial: CHF exacerbation pulmonary hypertension COPD possible pneumonia The patient is getting antibiotics. He is getting diuretics. Intake/ output is negative. He is getting inhalers , steroids, and supportive care for his COPD. he says he feels a little bit better. (4) CHF (congestive heart failure): Code(s): I50.9 - Heart failure, unspecified Status: Acute Assessment and Plan: admisison imaging with fluid in lungs on diuretic therapy follow I/Os and daily weights (5) COPD (chronic obstructive pulmonary disease): Code(s): J44.9 - Chronic obstructive pulmonary disease, unspecified Status: Chronic Assessment and Plan: continue supplemental oxygen nebulizer treatments steroids As above (6) Pneumonia: Qualifiers: Laterality: left Lung location: unspecified part of lung Pneumonia type: due to unspecified organism Qualified Code(s): J18.9 - Pneumonia, unspecified organism Code(s): J18.9 - Pneumonia, unspecified organism Status: Acute Assessment and Plan: questionable infiltration on admission imaging follow culture data on antibiotics (7) Paroxysmal atrial fibrillation: Code(s): I48.0 - Paroxysmal atrial fibrillation Status: Chronic Assessment and Plan: heart rate doing well at 64. He is on rivaroxaban Will continue to follow. Subjective Date/time seen: 07/26/23 10:09 Interval history: patient feels a little better. He still has a cough but it is better. He has some shortness of breath. He does have chronic shortness of breath as well and is on oxygen at home. his breathing is better quite to its baseline. Eating well Exam Narrative: General: elderly male in NAD Heart: normal S1 and S2; no rub or gallop Lungs: Fairly good air movement on the left. Decreased breath sounds at the right base and dullness to percussion. Abdomen: soft, nontender, nondistended, positive bowel sounds Extremities: no cyanosis or clubbing; mild chronic edema Skin: no rash Objective Data Vital Signs Vital Signs: Vital Signs - 24 hr 07/25/23 13:00 07/25/23 13:10 07/25/23 14:00 Temperature 98.2 F Pulse Rate 59 L 65 60 Respiratory Rate 20 20 16 Blood Pressure 149/84 H Pulse Oximetry 96 Oxygen Delivery Oxygen Flow Rate 07/25/23 20:34 07/25/23 20:34 07/25/23 21:56 Temperature 97.4 F L Pulse Rate 62 86 Respiratory Rate 20 21 H Blood Pressure 198/73 H Pulse Oximetry 93 100 Oxygen Delivery Nasal Cannula Oxygen Flow Rate 2 07/25/23 20:00 07/26/23 02:44 07/26/23 07:34 Temperature Pulse Rate 64 60 Respiratory Rate 20 20 Blood Pressure Pulse Oximetry 98 Oxygen Delivery Nasal Cannula Oxygen Flow Rate 2 07/26/23 07:34 07/26/23 07:40 07/26/23 06:00 Temperature 97.8 F Pulse Rate 54 L 57 L Respiratory Rate 20 16 Blood Pressure 162/70 H Pulse Oximetry 95 95 Oxygen Delivery Nasal Ca
[2023-07-26 11:27] LABS: Glucose Point of Care 362 mg/dl (65-105)
[2023-07-26] MEDS: INSULIN ASPART (*BKC) 100 UNITS/ML SUB-Q ×3 (12:51→20:53)
--- NOTE | 2023-07-26 14:21 | PM.DS ---
DS: Admitting Diagnosis Admitting Diagnosis Lung infiltrate Acute and chronic respiratory failure with hypoxia Obstructive sleep apnea COPD Pulmonary hypertension Combined systolic and diastolic congestive heart failure Paroxysmal atrial fib Spinal stenosis, lumbar region with neurogenic claudication Pacemaker Acute kidney injury superimposed on chronic kidney injury DS: Discharge Diagnosis Discharge Diagnosis (1) Lung infiltrate: Code(s): R91.8 - Other nonspecific abnormal finding of lung field Status: Acute (2) Acute and chronic respiratory failure with hypoxia: Code(s): J96.21 - Acute and chronic respiratory failure with hypoxia Status: Acute (3) Acute kidney injury superimposed on CKD: Code(s): N17.9 - Acute kidney failure, unspecified; N18.9 - Chronic kidney disease, unspecified Status: Acute (4) Hyperkalemia: Code(s): E87.5 - Hyperkalemia Status: Resolved (5) PATRICIA (obstructive sleep apnea): Code(s): G47.33 - Obstructive sleep apnea (adult) (pediatric) Status: Chronic (6) Chronic obstructive pulmonary disease: Qualifiers: COPD type: COPD with acute lower respiratory infection Qualified Code(s): J44.0 - Chronic obstructive pulmonary disease with (acute) lower respiratory infection Code(s): J44.9 - Chronic obstructive pulmonary disease, unspecified Status: Chronic (7) Pulmonary hypertension: Code(s): I27.20 - Pulmonary hypertension, unspecified Status: Chronic (8) Combined systolic and diastolic congestive heart failure: Qualifiers: Heart failure chronicity: chronic Qualified Code(s): I50.42 - Chronic combined systolic (congestive) and diastolic (congestive) heart failure Code(s): I50.40 - Unspecified combined systolic (congestive) and diastolic (congestive) heart failure Status: Chronic (9) Paroxysmal atrial fibrillation: Code(s): I48.0 - Paroxysmal atrial fibrillation Status: Chronic (10) Spinal stenosis, lumbar region with neurogenic claudication: Code(s): M48.062 - Spinal stenosis, lumbar region with neurogenic claudication Status: Chronic (11) Pacemaker: Code(s): Z95.0 - Presence of cardiac pacemaker Status: Chronic (12) Type 2 diabetes mellitus with diabetic polyneuropathy: Qualifiers: Diabetes mellitus fpc insulin use: unspecified long term care social worker insulin use status Qualified Code(s): E11.42 - Type 2 diabetes mellitus with diabetic polyneuropathy Code(s): E11.42 - Type 2 diabetes mellitus with diabetic polyneuropathy Status: Chronic DS: Summary Hospital Course Reason for hospitalization: Lung infiltrate Acute and chronic respiratory failure with hypoxia COPD Combined systolic and diastolic congestive heart failure Acute kidney injury superimposed on chronic kidney disease Hospital Course: This is an 88-year-old male who presented to the hospital on 07/20/2023 with complaints of shortness of breath/dyspnea. Patient is on chronic oxygen of 2 L and had to increase to 3-4 L when he presented. He did have mild leg swelling on admission. Workup in the hospital included a chest x-ray which showed moderate interstitial edema, moderate right and mild left pleural effusion, subsegmental bibasilar atelectasis/consolidation. He had a repeat chest x-ray done on 07/23/2023 which shown a persistent bilateral airspace disease representing either edema or pneumonia, enlarging moderate bilateral pleural effusions. 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 On examination today patient Vital signs are stable, he is afebrile, he is currently on his baseline 2 L nasal cannula. He denies he endorses Labs today revealed a hemoglobin of 11.1, hematocrit 35.6, platelet count 117, potassiu
--- NOTE | 2023-07-26 15:31 | P.PNIM_ITS ---
Progress Note: A&P Assessment and Plan (1) Lung infiltrate: Code(s): R91.8 - Other nonspecific abnormal finding of lung field Status: Acute Assessment and Plan: * Transitioned to PO Augmentin oral * Will get another chest x-ray today just to re-evaluate * continue Lasix BID (2) Acute and chronic respiratory failure with hypoxia: Code(s): J96.21 - Acute and chronic respiratory failure with hypoxia Status: Acute Assessment and Plan: * Likely multifactorial with HF exacerbation and possible acute PNA. * supplemental oxygen as needed - currently on 2L * Continue dexamethasone (3) Acute kidney injury superimposed on CKD: Code(s): N17.9 - Acute kidney failure, unspecified; N18.9 - Chronic kidney disease, unspecified Status: Acute Assessment and Plan: * Creatinine baseline is 1.8-2.0. * Today's creatinine is 2.3 * nephrology consulted - no changes to plan needed at this time, likely will resolve post hospitalization * Daily weight * Accurate I&O (4) Hyperkalemia: Code(s): E87.5 - Hyperkalemia Status: Resolved Assessment and Plan: * Continue Telemetry * Potassium 3.3 today, 20 mEq of potassium given * will continue to trend and monitor (5) PATRICIA (obstructive sleep apnea): Code(s): G47.33 - Obstructive sleep apnea (adult) (pediatric) Status: Chronic Assessment and Plan: * CPAP ordered (6) Chronic obstructive pulmonary disease: Qualifiers: COPD type: COPD with acute lower respiratory infection Qualified Code(s): J44.0 - Chronic obstructive pulmonary disease with (acute) lower respiratory infection Code(s): J44.9 - Chronic obstructive pulmonary disease, unspecified Status: Chronic Assessment and Plan: * Supplemental respiratory support as needed. * Continue neb treatments * Monitor (7) Pulmonary hypertension: Code(s): I27.20 - Pulmonary hypertension, unspecified Status: Chronic Assessment and Plan: * Secondary to his Heart Failure. * ECHO previously done last week with Sirisha Oliveira, unable to find in chart? * Continue IV Lasix BID (8) Combined systolic and diastolic congestive heart failure: Qualifiers: Heart failure chronicity: chronic Qualified Code(s): I50.42 - Chronic combined systolic (congestive) and diastolic (congestive) heart failure Code(s): I50.40 - Unspecified combined systolic (congestive) and diastolic (congestive) heart failure Status: Chronic Assessment and Plan: * As evidenced by CXR there is fluid in lungs. * Continue IV Lasix * Checking another chest x-ray today to see if there has been any improvement * Accurate I&O * Daily weight (9) Paroxysmal atrial fibrillation: Code(s): I48.0 - Paroxysmal atrial fibrillation Status: Chronic Assessment and Plan: * Rate controlled. Continue Carvedilol * Continue Xarelto * Continuous Telemetry (10) Spinal stenosis, lumbar region with neurogenic claudication: Code(s): M48.062 - Spinal stenosis, lumbar region with neurogenic claudication Status: Chronic Assessment and Plan: * Pain control as needed. * PT and OT eval. (11) Pacemaker: Code(s): Z95.0 - Presence of cardiac pacemaker Status: Chronic Assessment and Plan: * Noted. 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
--- NOTE | 2023-07-26 15:31 | PM.IMPN ---
Progress Note: A&P Assessment and Plan (1) Lung infiltrate: Code(s): R91.8 - Other nonspecific abnormal finding of lung field Status: Acute Assessment and Plan: Transitioned to PO Augmentin oral Will get another chest x-ray today just to re-evaluate continue Lasix BID (2) Acute and chronic respiratory failure with hypoxia: Code(s): J96.21 - Acute and chronic respiratory failure with hypoxia Status: Acute Assessment and Plan: Likely multifactorial with HF exacerbation and possible acute PNA. supplemental oxygen as needed - currently on 2L Continue dexamethasone (3) Acute kidney injury superimposed on CKD: Code(s): N17.9 - Acute kidney failure, unspecified; N18.9 - Chronic kidney disease, unspecified Status: Acute Assessment and Plan: Creatinine baseline is 1.8-2.0. Today's creatinine is 2.3 nephrology consulted - no changes to plan needed at this time, likely will resolve post hospitalization Daily weight Accurate I&O (4) Hyperkalemia: Code(s): E87.5 - Hyperkalemia Status: Resolved Assessment and Plan: Continue Telemetry Potassium 3.3 today, 20 mEq of potassium given will continue to trend and monitor (5) PATRICIA (obstructive sleep apnea): Code(s): G47.33 - Obstructive sleep apnea (adult) (pediatric) Status: Chronic Assessment and Plan: CPAP ordered (6) Chronic obstructive pulmonary disease: Qualifiers: COPD type: COPD with acute lower respiratory infection Qualified Code(s): J44.0 - Chronic obstructive pulmonary disease with (acute) lower respiratory infection Code(s): J44.9 - Chronic obstructive pulmonary disease, unspecified Status: Chronic Assessment and Plan: Supplemental respiratory support as needed. Continue neb treatments Monitor (7) Pulmonary hypertension: Code(s): I27.20 - Pulmonary hypertension, unspecified Status: Chronic Assessment and Plan: Secondary to his Heart Failure. ECHO previously done last week with Sirisha Oliveira, unable to find in chart? Continue IV Lasix BID (8) Combined systolic and diastolic congestive heart failure: Qualifiers: Heart failure chronicity: chronic Qualified Code(s): I50.42 - Chronic combined systolic (congestive) and diastolic (congestive) heart failure Code(s): I50.40 - Unspecified combined systolic (congestive) and diastolic (congestive) heart failure Status: Chronic Assessment and Plan: As evidenced by CXR there is fluid in lungs. Continue IV Lasix Checking another chest x-ray today to see if there has been any improvement Accurate I&O Daily weight (9) Paroxysmal atrial fibrillation: Code(s): I48.0 - Paroxysmal atrial fibrillation Status: Chronic Assessment and Plan: Rate controlled. Continue Carvedilol Continue Xarelto Continuous Telemetry (10) Spinal stenosis, lumbar region with neurogenic claudication: Code(s): M48.062 - Spinal stenosis, lumbar region with neurogenic claudication Status: Chronic Assessment and Plan: Pain control as needed. PT and OT eval. (11) Pacemaker: Code(s): Z95.0 - Presence of cardiac pacemaker Status: Chronic Assessment and Plan: Noted. 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
[2023-07-26] MEDS: POTASSIUM CHLORIDE 20 MEQ ER TABLET PO (17:58)
[2023-07-26 18:00] LABS: Glucose Point of Care 254 mg/dl (65-105)
--- NOTE | 2023-07-26 19:00 | PC.NURSE ---
On 07/26/23, the student, Karena Vazquez, provided care and completed [facility] documentation on this patient. I have reviewed the student's documentation and agree with the findings.
[2023-07-26] MEDS: INSULIN GLARGINE (*BKC) 100 UNITS/ML 11 UNITS SUB-Q (20:52)
[2023-07-26 23:04] LABS: Glucose Point of Care 340 mg/dl (65-105)
[2023-07-27] VITALS (10 sets, daily range): BP systolic 160–166; BP diastolic 60–79; PULSE 60–67; RESP 16–18; TEMP 36.4–36.8; O2SAT 95–96
[2023-07-27] MEDS: IPRATROPIUM 0.5 MG/ALBUTEROL SULFATE 2.5 MG AMPUL.NEB 3 ML INHALATION ×3 (02:24→13:32)
[2023-07-27] MEDS: HYDROcodone/acetaminophen (*CRX) 5-325 MG TABLET 1 TAB PO (02:45)
[2023-07-27 06:17] LABS: Hematocrit 36.7 % (42.0-52.0); Hemoglobin 11.4 g/dL (14.0-18.0); Mean Corpuscular HGB Conc 31.1 g/dl (32-36); Mean Corpuscular Hemoglobin 32.5 pg (26-34); Mean Corpuscular Volume 104.6 fl (80-100); Mean Platelet Volume 12.6 fl (7.4-10.4); Platelet Count Result 123 k/mm3 (150-375); Red Blood Count 3.51 M/mm3 (4.6-6.20); Red Cell Distribution Width 14.1 % (11.5-14.5); White Blood Count 11.4 K/mm3 (4.5-10.0)
[2023-07-27 06:31] LABS: Alanine Aminotransferase 9 U/L (6-50); Albumin Level 2.8 g/dL (3.5-5.1); Alkaline Phosphatase 134 U/L (38-126); Anion Gap 6 mmol/L (8-16); Aspartate Amino Transferase 19 U/L (17-59); Bilirubin,Total 0.7 mg/dL (0.2-1.3); Blood Urea Nitrogen 84 mg/dL (9-20); Calcium 8.1 mg/dL (8.4-10.2); Carbon Dioxide 28 mmol/L (22-30); Chloride 106 mmol/L (98-107); Estimated CRCL calculation 22 ml/min; Estimated Glomerular Filt Rate 30; Glucose 192 mg/dL (65-110); Potassium 3.4 mmol/L (3.4-5.0); Sodium 140 mmol/L (137-145)
[2023-07-27 08:18] LABS: Glucose Point of Care 162 mg/dl (65-105)
[2023-07-27] MEDS: carvediloL 12.5 MG TABLET PO (08:32)
[2023-07-27] MEDS: TOPIRAMATE 25 MG TABLET PO (08:32)
[2023-07-27] MEDS: hydrALAZINE HCL 25 MG TABLET PO ×2 (08:32→13:10)
[2023-07-27] MEDS: CARBIDOPA/LEVODOPA 25/100 MG TABLET 1 TABLET PO ×2 (08:32→13:10)
[2023-07-27] MEDS: GABAPENTIN 300 MG CAPSULE PO (08:32)
[2023-07-27] MEDS: ISOSORBIDE MONONITRATE 60 MG TAB.ER.24H PO (08:33)
[2023-07-27] MEDS: FEBUXOSTAT 40 MG TABLET PO (08:33)
[2023-07-27] MEDS: AMOXICILLIN/CLAVULANATE K 875-125 MG TAB 1 TABLET PO (08:33)
[2023-07-27] MEDS: RIVAROXABAN 15 MG TABLET PO (08:33)
[2023-07-27] MEDS: TERAZOSIN HCL 1 MG CAPSULE 2 MG PO (08:33)
[2023-07-27] MEDS: DEXAMETHASONE 4 MG TABLET PO (08:33)
[2023-07-27] MEDS: FUROSEMIDE INJ 40 MG/4 ML VIAL IV PUSH (08:37)
--- NOTE | 2023-07-27 10:09 | P.PNNP_ITS ---
Progress Note: A&P Assessment and Plan (1) RACHAEL (acute kidney injury): Code(s): N17.9 - Acute kidney failure, unspecified Status: Acute Assessment and Plan: * creatinine was a little bit higher than baseline when he came in. * Creatinine is improving day by day by just a little bit each day. (2) Chronic kidney disease, stage 4 (severe): Code(s): N18.4 - Chronic kidney disease, stage 4 (severe) Status: Chronic Assessment and Plan: * baseline creatinine seems to run ~ 2.0 - 2.5mg/dl in the last couple of years * due to longstanding hypertension, extensive peripheral arterial/vascular disease, diabetes, obstructive sleep apnea and age-related change * Consider starting KELLEY-inhibitor down the line (3) Acute and chronic respiratory failure with hypoxia: Code(s): J96.21 - Acute and chronic respiratory failure with hypoxia Status: Acute Assessment and Plan: * multifactorial: * CHF exacerbation * pulmonary hypertension * COPD * possible pneumonia * The patient is getting antibiotics. * He is getting diuretics. Intake/ output is negative. * He is getting inhalers , steroids, and supportive care for his COPD. * he says he feels a little bit better. (4) CHF (congestive heart failure): Code(s): I50.9 - Heart failure, unspecified Status: Acute Assessment and Plan: * admisison imaging with fluid in lungs * on diuretic therapy * follow I/Os and daily weights (5) COPD (chronic obstructive pulmonary disease): Code(s): J44.9 - Chronic obstructive pulmonary disease, unspecified Status: Chronic Assessment and Plan: * continue supplemental oxygen * nebulizer treatments * steroids * As above (6) Pneumonia: Qualifiers: Laterality: left Lung location: unspecified part of lung Pneumonia type: due to unspecified organism Qualified Code(s): J18.9 - Pneumonia, unspecified organism Code(s): J18.9 - Pneumonia, unspecified organism Status: Acute Assessment and Plan: * questionable infiltration on admission imaging * follow culture data * on antibiotics (7) Paroxysmal atrial fibrillation: Code(s): I48.0 - Paroxysmal atrial fibrillation Status: Chronic Assessment and Plan: * heart rate doing well at 64. * He is on rivaroxaban Will continue to follow. Subjective Date/time seen: 07/27/23 10:09 Interval history: Patient feels about the same today. Eating pretty well mild shortness of breath and still has a cough Exam Narrative: General: elderly male in NAD Heart: normal S1 and S2; no rub or gallop Lungs: Fairly good air movement on the left. Decreased breath sounds at the right base and dullness to percussion. Abdomen: soft, nontender, nondistended, positive bowel sounds Extremities: no cyanosis or clubbing; mild chronic edema Skin: no rash or subcu nodules Objective Data Vital Signs Vital Signs: Vital Signs - 24 hr 07/26/23 14:02 07/26/23 14:11 07/26/23 14:00 Temperature 97.7 F Pulse Rate 73 62 68 Respiratory Rate 16 16 18 Blood Pressure 150/81 H Pulse Oximetry 100 Oxygen Delivery Oxygen Flow Rate 07/26/23 20:40 07/26/23 20:48 07/26/23 20:59 Temperature 97 F L Pulse Rate 73
--- NOTE | 2023-07-27 10:09 | PM.PNNEP ---
Progress Note: A&P Assessment and Plan (1) RACHAEL (acute kidney injury): Code(s): N17.9 - Acute kidney failure, unspecified Status: Acute Assessment and Plan: creatinine was a little bit higher than baseline when he came in. Creatinine is improving day by day by just a little bit each day. (2) Chronic kidney disease, stage 4 (severe): Code(s): N18.4 - Chronic kidney disease, stage 4 (severe) Status: Chronic Assessment and Plan: baseline creatinine seems to run ~ 2.0 - 2.5mg/dl in the last couple of years due to longstanding hypertension, extensive peripheral arterial/vascular disease, diabetes, obstructive sleep apnea and age-related change Consider starting KELLEY-inhibitor down the line (3) Acute and chronic respiratory failure with hypoxia: Code(s): J96.21 - Acute and chronic respiratory failure with hypoxia Status: Acute Assessment and Plan: multifactorial: CHF exacerbation pulmonary hypertension COPD possible pneumonia The patient is getting antibiotics. He is getting diuretics. Intake/ output is negative. He is getting inhalers , steroids, and supportive care for his COPD. he says he feels a little bit better. (4) CHF (congestive heart failure): Code(s): I50.9 - Heart failure, unspecified Status: Acute Assessment and Plan: admisison imaging with fluid in lungs on diuretic therapy follow I/Os and daily weights (5) COPD (chronic obstructive pulmonary disease): Code(s): J44.9 - Chronic obstructive pulmonary disease, unspecified Status: Chronic Assessment and Plan: continue supplemental oxygen nebulizer treatments steroids As above (6) Pneumonia: Qualifiers: Laterality: left Lung location: unspecified part of lung Pneumonia type: due to unspecified organism Qualified Code(s): J18.9 - Pneumonia, unspecified organism Code(s): J18.9 - Pneumonia, unspecified organism Status: Acute Assessment and Plan: questionable infiltration on admission imaging follow culture data on antibiotics (7) Paroxysmal atrial fibrillation: Code(s): I48.0 - Paroxysmal atrial fibrillation Status: Chronic Assessment and Plan: heart rate doing well at 64. He is on rivaroxaban Will continue to follow. Subjective Date/time seen: 07/27/23 10:09 Interval history: Patient feels about the same today. Eating pretty well mild shortness of breath and still has a cough Exam Narrative: General: elderly male in NAD Heart: normal S1 and S2; no rub or gallop Lungs: Fairly good air movement on the left. Decreased breath sounds at the right base and dullness to percussion. Abdomen: soft, nontender, nondistended, positive bowel sounds Extremities: no cyanosis or clubbing; mild chronic edema Skin: no rash or subcu nodules Objective Data Vital Signs Vital Signs: Vital Signs - 24 hr 07/26/23 14:02 07/26/23 14:11 07/26/23 14:00 Temperature 97.7 F Pulse Rate 73 62 68 Respiratory Rate 16 16 18 Blood Pressure 150/81 H Pulse Oximetry 100 Oxygen Delivery Oxygen Flow Rate 07/26/23 20:40 07/26/23 20:48 07/26/23 20:59 Temperature 97 F L Pulse Rate 73 73 Respiratory Rate 18 Blood Pressure 195/77 H Pulse Oximetry 98 95 Oxygen Delivery Nasal Cannula Oxygen Flow Rate 2 07/26/23 21:00 07/26/23 22:07 07/26/23 20:55 Temperature 97.3 F L Pulse Rate 68 79 Respiratory Rate 16 16 Blood Pressure 156/79 H Pulse Oximetry 97 97 Oxygen Delivery Nasal Cannula Oxygen Flow Rate 2 07/27/23 02:23 07/27/23 02:33 07/26/23 21:10 Temperature Pulse Rate 65 67 69 Respiratory Rate 16 16 16 Blood Pressure Pulse Oximetry Oxygen Delivery Oxygen Flow Rate 07/27/23 05:31 07/27/23 07:39 07/27/23 07:39 Temperature 97.5 F L Pulse Rate 60 66 Respiratory Rate 16 16
[2023-07-27 12:30] LABS: Glucose Point of Care 441 mg/dl (65-105)
[2023-07-27] MEDS: INSULIN ASPART (*BKC) 100 UNITS/ML 15 UNITS SUB-Q ×2 (13:09→14:46)
--- NOTE | 2023-07-27 13:32 | PCOTNOTE ---
Attempted to see pt for occupational therapy. Pt reports having d/c orders for today and declined needing to participate in any therapy. Pt was offered to get dress in his own street clothes however, pt declined due to not leaving until 5pm or later. Both pt and pt's spouse report no questions or concerns at this time and pt request to just rest prior to leaving.
[2023-07-27 14:10] LABS: Glucose Point of Care 455 mg/dl (65-105)
--- NOTE | 2023-07-27 15:10 | P.DS_ITS ---
DS: Admitting Diagnosis Discharge Date 07/27/23 Admitting Diagnosis dyspnea DS: Discharge Diagnosis Discharge Diagnosis (1) Lung infiltrate: Code(s): R91.8 - Other nonspecific abnormal finding of lung field Status: Acute Assessment and Plan: * Transitioned to PO Augmentin * Repeat CXR showed some improvement in pleural effusions * ordered repeat CXR in 1-2 weeks * will see database administrator on 07/31 (2) Acute and chronic respiratory failure with hypoxia: Code(s): J96.21 - Acute and chronic respiratory failure with hypoxia Status: Acute Assessment and Plan: * Likely multifactorial with HF exacerbation and possible acute PNA. * supplemental oxygen as needed - currently on 2L * has home oxygen set up already (3) Acute kidney injury superimposed on CKD: Code(s): N17.9 - Acute kidney failure, unspecified; N18.9 - Chronic kidney disease, unspecified Status: Acute Assessment and Plan: * Creatinine baseline is 1.8-2.0. * Today's creatinine is 2.10 * nephrology consulted - no changes to plan needed at this time, likely will resolve post hospitalization (4) Hyperkalemia: Code(s): E87.5 - Hyperkalemia Status: Resolved (5) PATRICIA (obstructive sleep apnea): Code(s): G47.33 - Obstructive sleep apnea (adult) (pediatric) Status: Chronic (6) Chronic obstructive pulmonary disease: Qualifiers: COPD type: COPD with acute lower respiratory infection Qualified Code(s): J44.0 - Chronic obstructive pulmonary disease with (acute) lower respiratory infection Code(s): J44.9 - Chronic obstructive pulmonary disease, unspecified Status: Chronic Assessment and Plan: * pulm f/u scheduled for 07/31 (7) Pulmonary hypertension: Code(s): I27.20 - Pulmonary hypertension, unspecified Status: Chronic Assessment and Plan: * Secondary to his Heart Failure. * ECHO previously done last week with Sirisha Oliveira, unable to find in chart? (8) Combined systolic and diastolic congestive heart failure: Qualifiers: Heart failure chronicity: chronic Qualified Code(s): I50.42 - Chronic combined systolic (congestive) and diastolic (congestive) heart failure Code(s): I50.40 - Unspecified combined systolic (congestive) and diastolic (congestive) heart failure Status: Chronic (9) Paroxysmal atrial fibrillation: Code(s): I48.0 - Paroxysmal atrial fibrillation Status: Chronic Assessment and Plan: * Rate controlled. Continue Carvedilol * Continue Xarelto (10) Spinal stenosis, lumbar region with neurogenic claudication: Code(s): M48.062 - Spinal stenosis, lumbar region with neurogenic claudication Status: Chronic (11) Pacemaker: Code(s): Z95.0 - Presence of cardiac pacemaker Status: Chronic Assessment and Plan: * Noted. (12) Type 2 diabetes mellitus with diabetic polyneuropathy: Qualifiers: Diabetes mellitus quality inspector insulin use: unspecified fci insulin use status Qualified Code(s): E11.42 - Type 2 diabetes mellitus with diabetic polyneuropathy Code(s): E11.42 - Type 2 diabetes mellitus with diabetic polyneuropathy Status: Chronic Assessment and Plan: * BS elevated, worsened by IV steroids * Blood glucose ranging 160-180 * A1C in 04/14 was 7.3 * Lantus added at [facility] d/c and to follow up with PCP with BS log DS: Summary Hospital Course Hospital Course: Patient is an 88 YO male admitted for shortness of breath/dyspnea. Julee
--- NOTE | 2023-07-27 15:10 | PM.DS ---
DS: Admitting Diagnosis Discharge Date 07/27/23 Admitting Diagnosis dyspnea DS: Discharge Diagnosis Discharge Diagnosis (1) Lung infiltrate: Code(s): R91.8 - Other nonspecific abnormal finding of lung field Status: Acute Assessment and Plan: Transitioned to PO Augmentin Repeat CXR showed some improvement in pleural effusions ordered repeat CXR in 1-2 weeks will see therapeutic sales specialist on 07/31 (2) Acute and chronic respiratory failure with hypoxia: Code(s): J96.21 - Acute and chronic respiratory failure with hypoxia Status: Acute Assessment and Plan: Likely multifactorial with HF exacerbation and possible acute PNA. supplemental oxygen as needed - currently on 2L has home oxygen set up already (3) Acute kidney injury superimposed on CKD: Code(s): N17.9 - Acute kidney failure, unspecified; N18.9 - Chronic kidney disease, unspecified Status: Acute Assessment and Plan: Creatinine baseline is 1.8-2.0. Today's creatinine is 2.10 nephrology consulted - no changes to plan needed at this time, likely will resolve post hospitalization (4) Hyperkalemia: Code(s): E87.5 - Hyperkalemia Status: Resolved (5) PATRICIA (obstructive sleep apnea): Code(s): G47.33 - Obstructive sleep apnea (adult) (pediatric) Status: Chronic (6) Chronic obstructive pulmonary disease: Qualifiers: COPD type: COPD with acute lower respiratory infection Qualified Code(s): J44.0 - Chronic obstructive pulmonary disease with (acute) lower respiratory infection Code(s): J44.9 - Chronic obstructive pulmonary disease, unspecified Status: Chronic Assessment and Plan: pulm f/u scheduled for 07/31 (7) Pulmonary hypertension: Code(s): I27.20 - Pulmonary hypertension, unspecified Status: Chronic Assessment and Plan: Secondary to his Heart Failure. ECHO previously done last week with Sirisha Oliveira, unable to find in chart? (8) Combined systolic and diastolic congestive heart failure: Qualifiers: Heart failure chronicity: chronic Qualified Code(s): I50.42 - Chronic combined systolic (congestive) and diastolic (congestive) heart failure Code(s): I50.40 - Unspecified combined systolic (congestive) and diastolic (congestive) heart failure Status: Chronic (9) Paroxysmal atrial fibrillation: Code(s): I48.0 - Paroxysmal atrial fibrillation Status: Chronic Assessment and Plan: Rate controlled. Continue Carvedilol Continue Xarelto (10) Spinal stenosis, lumbar region with neurogenic claudication: Code(s): M48.062 - Spinal stenosis, lumbar region with neurogenic claudication Status: Chronic (11) Pacemaker: Code(s): Z95.0 - Presence of cardiac pacemaker Status: Chronic Assessment and Plan: Noted. (12) Type 2 diabetes mellitus with diabetic polyneuropathy: Qualifiers: Diabetes mellitus middle or intermediate school principal insulin use: unspecified middle or intermediate school principal insulin use status Qualified Code(s): E11.42 - Type 2 diabetes mellitus with diabetic polyneuropathy Code(s): E11.42 - Type 2 diabetes mellitus with diabetic polyneuropathy Status: Chronic Assessment and Plan: BS elevated, worsened by IV steroids Blood glucose ranging 160-180 A1C in 04/14 was 7.3 Lantus added at [facility] d/c and to follow up with PCP with BS log DS: Summary Hospital Course Hospital Course: Patient is an 88 YO male admitted for shortness of breath/dyspnea. Patient is on chronic oxygen of 2 L and had to increase to 3-4 L when he presented. He did have mild leg swelling on admission. Workup in the hospital included a chest x-ray which showed moderate interstitial edema, moderate right and mild left pleural effusion, subsegmental bibasilar atelectasis/consolidation. He had a repeat chest x-ray done on 07/23/2023 which shown a persistent bilateral airspace disease representing either amanda
[2023-07-27 16:36] LABS: Glucose Point of Care 379 mg/dl (65-105)
--- NOTE | 2023-07-27 17:55 | PC.NURSE ---
On 07/27/23, the student, Enio Henley, provided care and completed [facility] documentation on this patient. I have reviewed the student's documentation and agree with the findings.
== END 2023-07-27 16:52 | disposition home health service (06) | DRG 193 ==
LOC: ANHED 18:42 → ANH3MED 21:52
PROVIDERS: Internal Medicine Nephrology; Nurse Practitioner Acute Care; Nurse Practitioner Adult Health; Admitting Provider Internal Medicine; Emergency Provider Emergency Medicine; PCP Family Medicine; Visit Provider Nurse Practitioner
DX: J18.9 Pneumonia, unspecified organism (principal); I50.43 Acute on chronic combined systolic (congestive) and diastolic (congestive) heart failure; J96.21 Acute and chronic respiratory failure with hypoxia; I13.0 Hypertensive heart and chronic kidney disease with heart failure and stage 1 through stage 4 chronic kidney disease, or unspecified chronic kidney disease; J44.1 Chronic obstructive pulmonary disease with (acute) exacerbation; J44.0 Chronic obstructive pulmonary disease with (acute) lower respiratory infection; N18.4 Chronic kidney disease, stage 4 (severe); N17.9 Acute kidney failure, unspecified; I82.511 Chronic embolism and thrombosis of right femoral vein; I72.4 Aneurysm of artery of lower extremity; E87.5 Hyperkalemia; E11.22 Type 2 diabetes mellitus with diabetic chronic kidney disease; G47.33 Obstructive sleep apnea (adult) (pediatric); I48.0 Paroxysmal atrial fibrillation; M48.062 Spinal stenosis, lumbar region with neurogenic claudication; E11.42 Type 2 diabetes mellitus with diabetic polyneuropathy; R91.8 Other nonspecific abnormal finding of lung field; E78.5 Hyperlipidemia, unspecified; E86.0 Dehydration; M19.90 Unspecified osteoarthritis, unspecified site; D63.1 Anemia in chronic kidney disease; I35.0 Nonrheumatic aortic (valve) stenosis; R91.1 Solitary pulmonary nodule; Z20.822 Contact with and (suspected) exposure to COVID-19; M35.3 Polymyalgia rheumatica; I73.9 Peripheral vascular disease, unspecified; Z95.0 Presence of cardiac pacemaker; Z99.81 Dependence on supplemental oxygen; Z93.3 Colostomy status; Z79.01 Long term (current) use of anticoagulants; Z95.2 Presence of prosthetic heart valve; Z87.891 Personal history of nicotine dependence; Z95.5 Presence of coronary angioplasty implant and graft; Z95.820 Peripheral vascular angioplasty status with implants and grafts
CPT/HCPCS: 36415; 71045; 71046; 80048; 80053; 82948; 83036; 83690; 83735; 83880; 84100; 84132; 84484; 85025; 85027; 85610; 85730; 87070; 87205; 87637; 93005; 93971; 94640; 94667; 97110; 97116; 97162; 97165; 97530; 97535; 99285; A9270; J0360; J0456; J0612; J0696; J1815; J1940; J2930; J7030; J7040; J8540

== ENCOUNTER 2023-08-03 01:51 | Emergency (ER) | payer MEDICARE, MEDICAID, SELFPAY ==
[2023-08-03] VITALS (30 sets, daily range): BP systolic 146–169; BP diastolic 52–68; PULSE 60–90; RESP 15–20; TEMP 36.4; O2SAT 85–100
--- NOTE | ~2023-08-03 | XR_ITS ---
EXAMINATION: XR chest 1V portable DATE: 08/03/2023 02:35 INDICATION: Hypoxia. Cough. TECHNIQUE: A single frontal view of the chest was obtained. COMPARISON: Chest 2 views 07/26/2023, chest CT 12/27/2022 FINDINGS: The patient is rotated to his left. There are lucencies in the lungs, consistent with emphy sema. There are moderate-sized right and small left pleural effusions. A calcified right lung nodule and calcified right hilar lymph nodes are consistent with old granulomatous disease. There are airspa ce opacities at the lung bases. Surgical clips overlie right chest. The heart size is normal. There a re changes of aortic valve replacement. There is a left chest pacer leads in right atrium, right vent ricle, and coronary sinus. IMPRESSION: 1. Stable moderate-sized right and small left pleural effusions. 2. Stable airspace opacities at the lung bases, consistent with atelectasis versus pneumonia. Reviewed, dictated and finalized at location A. R SUBSYSTEM EQUIPMENT OPERATOR IMPRESSION: 1. Stable moderate-sized right and small left pleural effusions. 2. Stable airspace opacities at the lung bases, consistent with atelectasis miracle karri pneumonia.
--- NOTE | 2023-08-03 02:25 | ECG_ITS ---
Measurements Intervals [place] Rate: 82 P: [place]: 0 QRS: 235 QRSD: 166 T: 24 QT: 474 QTc: 557 Interpretive Statements VENTRICULAR pACED RHYTHM ABNORMAL ECG COMPARED TO ECG 07/20/2023 19:06:27 RIGHT BUNDLE-BRANCH BLOCK NOW PRESENT MYOCARDIAL INFARCT FINDING NOW PRESENT Electronically Signed On 08-03-2023 8:21:45 SYNTHETIC PLASTERER by Jovany Mayorga M.D.
[2023-08-03 02:42] LABS: Basophils Percent Auto 0.1 % (0.2-1.2); Hematocrit 33.7 % (42.0-52.0); Hemoglobin 10.2 g/dL (14.0-18.0); Immature Granulocyte Absolute 0.11 K/mm3 (0.00-0.031); Immature Granulocyte Percent A 0.5 % (0-0.5); Lymphocytes Absolute Auto 0.33 K/mm3 (0.9-3.2); Lymphocytes Percent Auto 1.6 % (18.3-44.2); Mean Corpuscular HGB Conc 30.3 g/dl (32-36); Mean Corpuscular Hemoglobin 32.4 pg (26-34); Mean Platelet Volume 12.4 fl (7.4-10.4); Monocytes Absolute Auto 1.2 K/mm3 (0.1-0.6); Monocytes Percent Auto 5.6 % (2.6-8.5); Neutrophils Percent Auto 92.2 % (45.5-73.1); Platelet Count Result 165 k/mm3 (150-375); Red Blood Count 3.15 M/mm3 (4.6-6.20); Red Cell Distribution Width 14.6 % (11.5-14.5); White Blood Count 20.6 K/mm3 (4.5-10.0)
[2023-08-03 02:53] LABS: INR 1.4; Prothrombin Time 17.7 Seconds (11.1-14.7)
[2023-08-03 02:54] LABS: Partial Thromboplastin Time 41.7 SECONDS (22.3-36.8)
[2023-08-03 03:01] LABS: Lactic Acid Reflex 1.3 mmol/L (0.7-2.0)
[2023-08-03 03:02] LABS: Alanine Aminotransferase 7 U/L (6-50); Alkaline Phosphatase 233 U/L (38-126); Anion Gap 4 mmol/L (8-16); Aspartate Amino Transferase 26 U/L (17-59); Bilirubin,Total 0.8 mg/dL (0.2-1.3); Blood Urea Nitrogen 68 mg/dL (9-20); Calcium 9.3 mg/dL (8.4-10.2); Carbon Dioxide 28 mmol/L (22-30); Chloride 107 mmol/L (98-107); Estimated CRCL calculation 20 ml/min; Estimated Glomerular Filt Rate 27; Glucose 121 mg/dL (65-110); Magnesium 2.6 mg/dL (1.6-2.3); Phosphorus 3.8 mg/dL (2.5-4.5); Potassium 4.6 mmol/L (3.4-5.0); Sodium 139 mmol/L (137-145)
[2023-08-03 03:03] LABS: Platelet Estimate Adequate (Adequate)
[2023-08-03 03:05] LABS: Anisocytosis 1+ (NORMAL); Large Platelets Present; Macrocytosis 1+ (NORMAL); Ovalocytes 1+ (NORMAL); Poikilocytosis 1+ (NORMAL); Schistocytes None Seen (NORMAL)
[2023-08-03 03:18] LABS: Influenza A QL RT-PCR Negative (Negative); Influenza B QL RT-PCR Negative (Negative); NT Pro B Type Natriuretic Pept 12000 pg/mL (19.9-100); RSV RNA, RT-PCR Negative (Negative); SARS-CoV-2 RNA PCR Negative (Negative); Troponin I 0.093 ng/mL (0.000-0.034)
[2023-08-03 04:11] LABS: Procalcitonin 4.4 ng/mL
[2023-08-03] MEDS: FUROSEMIDE INJ 40 MG/4 ML VIAL IV PUSH (04:15)
[2023-08-03 04:36] LABS: CRP 19.5 mg/dL (<1.0)
--- NOTE | 2023-08-03 04:55 | ED.GENADULT ---
HPI - General Adult General Chief complaint: Altered Mental Status Stated complaint: sob, Time Seen by Provider: 08/03/23 02:08 History of Present Illness HPI narrative: This is an 88-year-old male w/ COPD on 2lpm home 2, CHF presenting ED with chief complaint of shortness of breath. Patient is a poor historian. his only complaint this time are cough,shortness of breath and lower extremity edema. Patient's son says that the patient has not been doing well in general. He has had pneumonia multiple times over the last month. Patient was just discharged from our hospital on 07/28 after a prolonged hospitalization for mixed respiratory failure. Related Data Home Medications Medication Instructions Recorded Confirmed pravastatin 20 mg tablet 20 mg PO DAILY 04/13/22 07/20/23 rivaroxaban 15 mg tablet (Xarelto) 15 mg PO DAILY 04/30/23 07/20/23 calcium carbonate 600 mg-vitamin 1 tablet PO DAILY 06/05/23 07/20/23 D3 20 mcg (800 unit) chewable tablet (Caltrate 600 plus D) carvedilol 12.5 mg tablet (Coreg) 12.5 mg PO Q12H 06/05/23 07/20/23 carbidopa 25 mg-levodopa 100 mg 25 - 100 tablet PO TID 07/20/23 07/20/23 tablet iron,carbonyl 65 mg-vitamin C 125 1 tablet PO .every other day 07/20/23 07/20/23 mg tablet,delayed release terazosin 2 mg capsule 2 mg PO DAILY 07/20/23 07/20/23 Allergies Allergy/AdvReac Type Severity Reaction Status Date / Time prednisolone Allergy Severe Loss of Verified 07/17/23 12:41 Consciousness adhesive tape Allergy Unknown Not Verified 07/25/23 04:48 Entered,Unknown,Not Entered,Unknown atorvastatin Allergy Unknown Muscle Pain Verified 07/17/23 12:41 flecainide Allergy Unknown FACIAL Verified 07/17/23 12:41 NUMBNESS prednisone Allergy Unknown DIABETES,OSTEOPOROSIS, Verified 07/25/23 04:48 DECREASED IMMUNE SYS,Unknown,DIABETES PMFSH Past Medical History Medical History Abdominal aortic aneurysm Anemia in chronic kidney disease Aortic valve stenosis, acquired Status post TAVR. Arthritis Chronic anticoagulation Chronic atrial fibrillation, unspecified Chronic kidney disease, stage 4 (severe) Baseline creatinine is around 2.90. 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 Coronary artery disease involving [place] coronary artery of [place] heart Diabetic peripheral neuropathy Dyslipidemia Essential tremor Gout Hyperkalemia Hypertension, essential Loculated pleural effusion (07/2021) Neck mass Nephrolithiasis Parapneumonic effusion (07/2021) Status post chest tube and intrapleural tPA. Paroxysmal atrial fibrillation (12/21/18) Status post ablation. Gabby-rectal abscess Peripheral vascular disease of lower extremity Polymyalgia rheumatica Thyroid nodule Type 2 diabetes mellitus Ulcerative colitis Surgical History Surgical History History of cardiac catheterization History of cataract extraction History of colonoscopy with polypectomy History of heart artery stent History of incision and drainage I&D of left rectal abscess 09/05/[address] Betancur. History of partial colectomy History of transcatheter aortic valve replacement (TAVR) (04/2020) History of umbilical hernia repair History of vascular surgery Multiple lower extremity stents and femoral popliteal bypass. Four and 1 leg and 5 in the other. Family History Family History Sibling Patient's sister is in good health Father Family history of malignant neoplasm of bone Family history of malignant neoplasm Patient's father is , Onset Age: 60 Metastatic bone cancer Mother Family history of coronary artery disease STEMI (ST elevation myocardial
[2023-08-03] MEDS: CEFEPIME 2 GM/NS 50 ML 2 GM/50 ML BAG IVPB (05:19)
[2023-08-03 05:54] LABS: Troponin I 0.091 ng/mL (0.000-0.034)
[2023-08-03] MEDS: DOXYCYCLINE 100 MG/NS 100 ML 100 MG/100 ML BAG IVPB (05:54)
[2023-08-03 06:11] LABS: Appearance Urine Clear (Clear); Bacteria Urine None Seen /hpf; Bilirubin Urine Negative (Negative); Blood Urine Negative (Negative); Color Urine Yellow (Yellow); Glucose Urine UA Negative (Negative); Ketones Urine Negative (Negative); Leukocyte Esterase Ur Negative LEU/UL (Negative); Nitrate Urine Negative (Negative); Protein Urine 2+ mg/dL (Negative); RBC Urine 0-2 /hpf (0-2); Specific Grav Ur 1.014 (1.001-1.035); Squamous Epithelial Cell Urine None seen /hpf (Few); Urobilinogen Urine 0.2 mg/dL (<2.0); WBC Urine 0-5 /hpf
[2023-08-03 06:14] LABS: Add Urine Microscopic? YES
[2023-08-03] MEDS: VANCOMYCIN 2,000 MG/NS 500 ML 2,000 MG/500 ML BAG 250 MG IVPB (06:59)
== END 2023-08-03 07:18 | disposition short-term general hospital (02) ==
PROVIDERS: Emergency Provider Emergency Medicine; PCP Family Medicine
DX: J18.9 Pneumonia, unspecified organism (principal); J96.11 Chronic respiratory failure with hypoxia; J44.9 Chronic obstructive pulmonary disease, unspecified; E11.22 Type 2 diabetes mellitus with diabetic chronic kidney disease; I13.0 Hypertensive heart and chronic kidney disease with heart failure and stage 1 through stage 4 chronic kidney disease, or unspecified chronic kidney disease; N18.4 Chronic kidney disease, stage 4 (severe); I50.40 Unspecified combined systolic (congestive) and diastolic (congestive) heart failure; D63.1 Anemia in chronic kidney disease; I25.10 Atherosclerotic heart disease of native coronary artery without angina pectoris; I48.0 Paroxysmal atrial fibrillation; I35.0 Nonrheumatic aortic (valve) stenosis; E11.42 Type 2 diabetes mellitus with diabetic polyneuropathy; E78.5 Hyperlipidemia, unspecified; K51.90 Ulcerative colitis, unspecified, without complications; M19.90 Unspecified osteoarthritis, unspecified site; Z87.891 Personal history of nicotine dependence; Z87.442 Personal history of urinary calculi; M35.3 Polymyalgia rheumatica; Z95.0 Presence of cardiac pacemaker; Z95.5 Presence of coronary angioplasty implant and graft; Z93.3 Colostomy status; Z98.49 Cataract extraction status, unspecified eye; Z90.49 Acquired absence of other specified parts of digestive tract; Z79.4 Long term (current) use of insulin; Z79.01 Long term (current) use of anticoagulants
CPT/HCPCS: 36415; 71045; 80053; 81001; 83605; 83735; 83880; 84100; 84145; 84484; 85025; 85610; 85730; 86140; 87040; 87181; 87637; 93005; 96365; 96367; 96375; 99285; J0692; J1940; J3370